=== PATIENT | female | born 1980 | race Caucasian/White ===

== ENCOUNTER 2017-11-12 19:27 | Emergency (ER) | payer MEDICAID, SELFPAY ==
[2017-11-12 19:28] VITALS: BP 139/91; PULSE 113; RESP 16; TEMP 35.6; O2SAT 98; BMI 29.8
--- NOTE | 2017-11-12 19:37 | ED.VISSUMM ---
- ER Visit Summary Date of Service: 11/12/17 Chief Complaint: Back pain History of Present Illness: The patient is a 37 F with a history of back pain who presents after injuring her lower back today. She fell after she slipped on some ice. She twisted and hurt her lower back. It is worse with movement. It is better with sitting. Denies any numbness or tingling. No urinary retention or bowel or bladder incontinence. She does have history of sciatic issues. She tried Tylenol at home without any relief Physical Examination: Vital signs reviewed. HEENT exam unremarkable. Heart is regular rate and rhythm without murmurs. Lungs are clear to auscultation. Abdomen is soft and nontender. Exam reveals bilateral lumbar paraspinal tenderness to palpation extremities reveal no edema. Skin exam normal. Neurologic exam normal. Test Results: None indicated Emergency Department Course and Treatment: Patient will be treated one [place] and Flexeril here. She will go home with Flexeril only. She will follow-up with her PCP Treatment Plan: [] Disposition: Discharge Impression: Acute on chronic low back pain This note was generated with [employer] dictation software. It may contain incorrect words, spelling, and punctuation that were not noted in review of the chart prior to signing ED Disposition - Plan for ED Patient: Chief Complaint: Fall Referrals: Yancy De La Garza MD [Primary Care Provider] -
--- NOTE | 2017-11-12 19:38 | ED.DEP ---
ED Disposition - Plan for ED Patient: Disposition: Home or Assisted Living Chief Complaint: Fall Instructions: ED Mechanical Fall Prescriptions: Cyclobenzaprine [Flexeril] 10 mg PO TID PRN #20 tab PRN Reason: Muscle Spasm Referrals: Yancy De La Garza MD [Primary Care Provider] -
[2017-11-12] MEDS: HYDROcodone Bitartrate/Apap 5/325 Tablet PO (19:55)
== END 2017-11-12 19:56 | disposition home or self-care (01) ==
LOC: ED 19:46
PROVIDERS: Emergency Provider Emergency Medicine
DX: G89.29 Other chronic pain (principal); M54.5 Low back pain; J45.909 Unspecified asthma, uncomplicated; Z72.0 Tobacco use
CPT/HCPCS: 99283

== ENCOUNTER 2018-03-19 12:22 | Emergency (ER) | payer MEDICAID, SELFPAY ==
[2018-03-19 12:24] VITALS: BP 150/79; PULSE 114; RESP 18; TEMP 37; O2SAT 97; BMI 29.5
[2018-03-19] MEDS: HYDROcodone Bitartrate/Apap 5/325 Tablet PO (12:44)
[2018-03-19] MEDS: Ibuprofen 400 MG Tablet 800 MG PO (12:44)
--- NOTE | 2018-03-19 14:01 | ED.DCSUM_ITS ---
- ER Visit Summary Date of Service: 03/19/18 Chief Complaint: Central low back pain History of Present Illness: The patient is a 38 F who presents with chief complaint it is my sciatica. She denies any radicular pain. She denies bowel bladder dysfunction. She denies quadricep weakness going up and down steps. She reports foot drop. She took 2 ibuprofen without relief. There is a somewhat to her prior back pain. Review of systems otherwise negative. Past history of seizures, asthma and genital herpes. Physical Examination: Vital signs are unremarkable. Patient moves quite freely with no hesitation or evidence of pain. Abdomen is soft nontender. No palpable semester down bruit. She has minimal discomfort to palpation. Straight leg test is negative bilaterally. DTRs are 2+ at the patella and ankle with no clonus or Babinski sign. DP and PT pulses are palpable. Gait was observed there is no foot drop. Is able to walk on her heels and toes. Test Results: None Emergency Department Course and Treatment: Patient was medicated with ibuprofen and one Vivian tablet. She was reassessed at 1350 and states she is markedly better. She is sitting upright smiling. Treatment Plan: Prescription for ibuprofen Disposition: Discharged to home with appropriate home-going instructions Impression: Acute central low back pain without sciatica This note was generated with [employer] dictation software. It may contain incorrect words, spelling, and punctuation that were not noted in review of the chart prior to signing ED Disposition - Plan for ED Patient: Disposition: Home or Assisted Living Chief Complaint: Lower Extremity Injury Instructions: ED Neck Back Pain General Prescriptions: Ibuprofen 800 mg PO Q8 #14 tab Referrals: Care Physician,No Primary [Primary Care Provider] -
== END 2018-03-19 14:16 | disposition home or self-care (01) ==
PROVIDERS: Emergency Provider Emergency Medicine
DX: M54.5 Low back pain (principal); J45.909 Unspecified asthma, uncomplicated; Z72.0 Tobacco use
CPT/HCPCS: 99283

== ENCOUNTER 2018-05-18 16:39 | Emergency (ER) | payer MEDICAID, SELFPAY ==
[2018-05-18 16:40] VITALS: BP 120/68; PULSE 106; RESP 15; TEMP 36.6; O2SAT 97; BMI 45.6
--- NOTE | 2018-05-18 17:27 | ED.DCSUM_ITS ---
- ER Visit Summary Date of Service: 05/18/18 Chief Complaint: Acute right lower back pain History of Present Illness: The patient is a 38 F who has history of back problems presents with acute right lower back pain after lifting. She denies bowel bladder dysfunction. She denies saddle paresthesia anesthesia. She denies any radicular pain. Denies foot drop. She denies quadricep weakness. She denies saddle paresthesia or anesthesia. There is no history of fever, chills or night sweats. She denies IV drug use. She reports multiple allergies to NSAIDs. She initially states nausea. When she was informed this is not an allergy she informed me that she has hives. When asked if she would prefer to sit for 30 minutes versus standing for 30 minutes she chose the former. Please read written note for complete detail Physical Examination: Vital signs are Test Results: [] Emergency Department Course and Treatment: [] Remarkable heart rate 106. HEENT exam is unremarkable. Insert cardiopulmonary exam abdomen is soft nontender with no palpable mass abdominal bruit. Patient has pain out of proportion to tactile stimulus. Straight leg test is negative right and left. Patella and ankle reflex are 2+ and symmetric. EHL is intact. There is no clonus or Babinski sign. PT and DP pulses are palpable and symmetric. Treatment Plan: Since patient reports allergy to NSAIDs patient was informed she would have to take Tylenol and ice Disposition: Discharged home with appropriate home-going instructions Impression: Acute bilateral low back pain without sciatica secondary to lifting This note was generated with [employer] dictation software. It may contain incorrect words, spelling, and punctuation that were not noted in review of the chart prior to signing ED Disposition - Plan for ED Patient: Disposition: Home or Assisted Living Chief Complaint: Back Instructions: ED Sprain Strain Lumbar Referrals: Care Physician,No Primary [Primary Care Provider] - Additional Instructions: Apply ice 20-30 minutes at a time 6-8 times a day and because of your allergies take Tylenol for pain.
[2018-05-18] MEDS: Acetaminophen 325 MG Tablet 650 MG PO (17:55)
== END 2018-05-18 17:56 | disposition home or self-care (01) ==
PROVIDERS: Emergency Provider Emergency Medicine
DX: M54.5 Low back pain (principal); X50.9XXA Other and unspecified overexertion or strenuous movements or postures, initial encounter; Y93.9 Activity, unspecified; Y92.9 Unspecified place or not applicable; E66.9 Obesity, unspecified; Z72.0 Tobacco use
CPT/HCPCS: 99283

== ENCOUNTER 2019-06-24 18:05 | Emergency (ER) | payer MEDICAID, SELFPAY ==
[2019-06-24 18:06] VITALS: BP 138/81; PULSE 115; RESP 14; TEMP 36.8; O2SAT 98; BMI 30.5
--- NOTE | 2019-06-24 20:43 | ED.RN ---
AROUND 1900 PT LWBS
== END 2019-06-24 19:00 ==
LOC: ED 20:38
PROVIDERS: Emergency Provider Emergency Medicine
DX: R21 Rash and other nonspecific skin eruption (principal)

== ENCOUNTER 2019-07-29 16:39 | Emergency (ER) | payer MEDICAID, SELFPAY ==
[2019-07-29 16:39] VITALS: BP 152/83; PULSE 103; RESP 18; TEMP 36.3
[2019-07-29 16:40] VITALS: BP 152/83; PULSE 103; RESP 18; TEMP 36.3
--- NOTE | 2019-07-29 17:23 | ED.DCSUM_ITS ---
History of Present Illness Chief Complaint: Vag Bld, Preg Informant: Patient Issue: Vaginal bleeding. Negative for: Passing clots, Passing tissue Onset: Today Context: Gradual Onset Current Severity: Spotting Test: Positive Sexually: Active P: 1 Ab: 1 Narrative: Patient is a 39-year-old female currently 7 weeks 0 days presenting with spotting. Patient states this is her third . She had a spontaneous miscarriage at 6 weeks earlier this year. Patient states she had a transvaginal ultrasound a little less than a week ago outpatient to confirm intrauterine . She states the heart rate at that time was 139. Just prior to arrival she went to the bathroom and had a small amount of spotting with wiping. She denies any associated pelvic pain or cramping. She denies any dysuria or hematuria. She denies any abnormal vaginal discharge. She is planning on following up with [facility]. She denies any other complaints or concerns at this time. Past Medical History - Allergies and Home Meds Allergies/Adverse Reactions: Allergies erythromycin base [Erythromycin Base] Allergy (Verified 06/24/19 18:06) Hives ketorolac tromethamine [From Toradol] Allergy (Verified 06/24/19 18:06) Rash naproxen [From Naprosyn] Allergy (Verified 06/24/19 18:06) Rash Past Medical History: - - Disorder?on Keppra Surgical History: - - D&C Smoking Status: Current every day smoker Review of Systems General: Denies: Chills, Fever, Sweats Eyes: Denies: Visual changes - bilaterally, Diplopia ENT: Denies: Rhinorrhea, Sore throat Cardiovascular: Denies: Chest pain, Palpitations Respiratory: Denies: Dyspnea, Cough, Dyspnea on exertion Gastrointestinal: Denies: Abdominal pain, Nausea, Vomiting, Diarrhea Genitourinary: Reports: - - Vaginal bleeding. Denies: Dysuria, Hematuria, Frequency Musculoskeletal: Denies: Back pain, Extremity Pain Skin: Denies: Rash, Wounds Neurological: Denies: Headache, Weakness, Numbness Physical Exam Vital Signs/Narrative: Vital Signs Temp Pulse Resp BP 07/29/19 16:40 97.3 F L 103 H 18 152/83 H 07/29/19 16:39 97.3 F L 103 H 18 152/83 H Inital Vital Signs reviewed: Yes General: Well nourished, Well developed Head: Normocephalic, Atraumatic Eyes: Perrl, EOMI ENT: Moist mucous membranes, No rhinorrhea Neck: Supple, Nontender Cardiovascular: Regular rate Respiratory: No distress, Chest nontender Abdomen: Soft, Nontender, Nondistended, Normal bowel sounds. Negative for: Guarding Back: Nontender, Normal Inspection. Negative for: CVA tenderness Extremities: Nontender, No edema Skin: Normal color, No rash Neurological: Alert, Oriented x3, Cranial nerves II-XII grossly intact, Normal Strength, Normal Sensation Psychological: Normal affect Diagnostic/Tx/Re-eval Laboratory Data 07/29/19 07/29/19 07/29/19 17:40 18:33 18:33 WBC 12.0 H RBC 4.68 Hgb 14.7 Hct 43.2 MCV 92.3 MCH 31.4 MCHC 34.0 RDW Std Deviation 39.9 RDW Coeff of Ramona 11.9 Plt Count 314 MPV 8.7 Immature Gran % (Auto) 0.500 Neut % (Auto) 64.2 Lymph % (Auto) 28.5 Coos % (Auto) 5.7 Eos % (Auto) 0.8 Baso % (Auto) 0.3 Absolute Neuts (auto) 7.7 Absolute Lymphs (auto) 3.41 Nucleated RBC % 0 HCG, Quant Serum , Qual POSITIVE H Urine Color Yellow Urine Clarity Clear Urine pH 6.5 Ur Specific [place] 1.015 Urine Protein 30 H Urine Glucose (UA) Normal Urine Ketones 5 H Urine Occult Blood 250 H Urine Nitrite Negative Urine Bilirubin Negative Urine Urobilinogen 1 H Ur Leukocyte Esterase 25 H Urine RBC 0-5 SEEN Urine WBC 0-5 SEEN Ur Squamous Epith Cells 0-5 SEEN Urine Bacteria 0 SEEN Urine Mucus 1+ Blood Type 07/29/19 07/29/19 18:33 18:33 WBC RBC Hgb Hct MCV MCH MCHC RDW Std Deviation RDW Coeff of Ramona Plt Count MPV Immature Gran % (Auto) Neut % (Auto) Lymph % (Auto) Coos % (Auto) Eos % (Auto) Baso % (Auto) Absolute Neuts (auto) Absolute Lymphs (auto) Nucleated RBC % HCG, Quant 1923 H Serum , Qual Urine Color Urine Clarity Urine pH Ur Specific [place] Urine Protein Urine Glucose (UA) Urine Ketones Urine Occult Blood Urine Nitrite Urine Bilirubin Urine Urobilinogen Ur Leukocyte Esterase Urine RBC Urine WBC Ur Squamous Epith Cells Urine Bacteria Urine Mucus Blood Type O NEGATIVE - Medical Decision/Diagnostic Studies Patient is evaluated for painless vaginal bleeding in first trimester . She is approximately 7 weeks gestation. Bedside ultrasound performed by myself which does not show a definite intra-uterine . Patient states she had a transvaginal ultrasound last week that did confirm intrauterine gestation. I do not think a formal ultrasound is indicated at this time. Patient's hemoglobin is stable. She is Rh- and is given RhoGam in the ER. She does not have any pain or tenderness on physical exam. She is otherwise well-appearing. Patient states she came insulin because she is worried she might be having another miscarriage. Patient is counseled that this is a threatened and she agrees to follow-up with her CERTIFIED LACTATION EDUCATOR. hCG quant is obtained to facilitate follow-up/delta hCG. Patient is counseled on signs and symptoms requiring return to the emergency room. Patient verbalizes agreement and understand this plan. Patient discharged home in stable and improved condition. ED Disposition - Plan for ED Patient: Disposition: Home or Assisted Living Diagnosis: Threatened in early Instructions: POSSIBLE MISCARRIAGE (Threatened ) Additional Instructions: Please follow-up with your CERTIFIED LACTATION EDUCATOR. Call tomorrow. Tell them you need a repeat check of your beta hCG in 2 days. Tell them you were seen for vaginal bleeding in and concern for possible miscarriage. Return to emergency room as needed. You received a shot of RhoGam today because you have a negative blood type.
[2019-07-29 17:48] LABS: Bacteria 0 SEEN /hpf (None Seen)
[2019-07-29 17:57] LABS: Color, Urine Yellow (Yellow); Glucose, Dipstick Normal (Normal); Ketone-Dipstick 5 mg/dl (Negative); Leukocyte Esterase-Dipstick 25 /ul (Negative); Nitrite-Dipstick Negative (Negative); Occult Blood-Urine 250 /ul (Negative); Protein-Dipstick 30 mg/dl (Negative); Specific Gravity, Urine 1.015 (1.002-1.030); Urine Bilirubin Dipstick Negative (Negative); Urine Clarity Clear (Clear); Urine Urobilinogen 1 mg/dl (Normal); Urine pH 6.5 (5.0 - 8.0)
[2019-07-29 18:01] LABS: Mucous, Urine 1+ /hpf (<or=2+); Red Blood Cells-Urine 0-5 SEEN /hpf (0-5); Squamous Epithelial Cells - UA 0-5 SEEN /hpf (5-10)
[2019-07-29 18:02] LABS: White Blood Cells 0-5 SEEN /hpf (0-5)
[2019-07-29 18:46] LABS: Absolute Lymphocyte Count 3.41 X10^3/uL (0.83-4.51); Absolute Neutrophil Count 7.7 X10^3/uL (2.0-7.7); Basophil# 0.03 X10^3/uL; Basophil% 0.3 % (0-1); Eosinophils% 0.8 % (0-5); Hematocrit 43.2 % (37-47); Hemoglobin 14.7 g/dL (12.0-15.0); Lymphocyte # 3.41 X10^3/ul (4.0); Lymphocyte % 28.5 % (19-41); Mean Corpuscular Hgb 31.4 pg (27.0-32.0); Mean Corpuscular Volume 92.3 fL (81-99); Mean Platelet Vol. 8.7 fl (6.2-12.0); Monocyte# 0.68 X10^3/uL; Monocyte% 5.7 % (0-10); NRBC Flagged by Analyzer 0 % (0-5); Neutrophil # 7.67 X10^3/uL (2.7-7.7); Neutrophil % 64.2 % (47-70); Platelet Count 314 K/mm3 (150-450); RBC Distribution Width CV 11.9 % (11.6-14.6); RBC Distribution Width SD 39.9 fl (35.1-43.9); Red Blood Count 4.68 M/mm3 (4.2-5.4)
[2019-07-29 18:57] LABS: Internal QC Validated? YES +Cl - CLEAR BKGD
[2019-07-29 18:59] LABS: Pregnancy, Serum, hCG Quali. POSITIVE Negative
[2019-07-29 19:12] VITALS: RESP 14
[2019-07-29 20:30] VITALS: BP 123/69; PULSE 85; RESP 14; O2SAT 95
[2019-07-29 20:50] LABS: hCG Titer Quant., Serum 1923 mIU/mL (1-3)
== END 2019-07-29 20:31 | disposition home or self-care (01) ==
PROVIDERS: Emergency Provider Emergency Medicine
DX: O20.0 Threatened abortion (principal); O99.331 Smoking (tobacco) complicating pregnancy, first trimester; F17.200 Nicotine dependence, unspecified, uncomplicated; Z3A.01 Less than 8 weeks gestation of pregnancy; Z88.1 Allergy status to other antibiotic agents; Z88.6 Allergy status to analgesic agent
CPT/HCPCS: 36415; 81001; 84702; 84703; 85025; 86900; 86901; 90384; 99282; A4216; J2790

== ENCOUNTER 2021-03-28 13:29 | Emergency (ER) | payer MEDICAID, SELFPAY ==
[2021-03-28 13:30] VITALS: BP 153/89; PULSE 103; RESP 14; TEMP 36.5; O2SAT 97; BMI 31.9
--- NOTE | 2021-03-28 13:39 | ED.VIS.BACK ---
HPI History of Present Illness Chief Complaint: Back Informant: patient Onset/Context/Timing Onset: Yesterday Context: Sudden Onset Injury: bending Timing: Continuous Quality: Aching Location: Lumbar (Without radiation) Current Severity: Severe Maximum Severity: Severe Worsened by: improves with Movement, Ambulation and Bending Relieved by: Remaining Still Associated Symptoms Associated Symptoms: Negative for Numbness, Tingling, Radiation to Right Leg, Radiation to Left Leg, Fever, Abdominal Pain, Dysuria, Unable to Ambulate, Unable to Transfer, Urinary Retention, Urinary Incontinence, Constipation and Fecal Incontinence Narrative Narrative: Patient has a history of low back pain and sciatica states she had sudden onset pain yesterday with 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 Pain was not severe immediately but is gradually become worse. She feels like her back tightened/locked up at the time of the onset. She denies any IV drug use. She denies being right now. She denies radiation down her leg like prior sciatica episodes. She denies any bowel or bladder dysfunction. [facility] Medical History Genital herpes History of asthma History of sciatica Mental retardation Seizure disorder Home Medications albuterol sulfate [Ventolin Hfa (SP)] 2 puff INHALATION Q4H PRN PRN 09/02/15 [History Last Taken Unknown] Pravastatin Sodium 20 mg PO DAILY 09/09/16 [History Last Taken Unknown] cetirizine [Zyrtec] 10 mg PO DAILY 09/09/16 [History Last Taken Unknown] folic acid 1 mg PO DAILY 09/09/16 [History Last Taken Unknown] levetiracetam 1,000 mg PO BID 09/09/16 [History Last Taken Unknown] ranitidine HCl [Acid Control] 150 mg PO BID 09/09/16 [History Last Taken Unknown] sertraline 50 mg PO DAILY 09/09/16 [History Last Taken Unknown] Allergy/AdvReac Type Severity Reaction Status Date / Time erythromycin base Allergy Hives Verified 03/28/21 13:30 [Erythromycin Base] ketorolac tromethamine Allergy Rash Verified 03/28/21 13:30 [From Toradol] naproxen [From Naprosyn] Allergy Rash Verified 03/28/21 13:30 Social History Smoking Status: Current every day smoker ROS ROS ED Constitutional Constitutional ED: Denies chills or fever(s) Gastrointestinal Gastrointestinal: Denies abdominal pain, constipation, fecal incontinence, nausea or vomiting Genitourinary Genitourinary ED: Reports other Details: no urinary retention ; Denies abdominal discomfort or urinary incontinence Musculoskeletal Musculoskeletal: Reports as per HPI and back pain; Denies neck pain Integumentary Denies rash or wounds Neurologic Neurologic: Denies headache(s), paresthesias or weakness EXAM Physical Exam Const Vital Signs: 03/28/21 13:30 Temperature 97.7 F L Temperature Source Temporal Pulse Rate 103 H Respiratory Rate 14 Blood Pressure 153/89 H Blood Pressure Mean 110 Pulse Ox 97 Oxygen Delivery Method Room Air Positive well nourished and well developed General Appearance ED: well developed and NAD HEENT Negative for trauma or tenderness Eyes PERRL and EOMs intact bilaterally Neck full ROM and supple GI normal to inspection, nondistended, normoactive bowel sounds, soft to palpation and non-tender Back/Spine normal to inspection Lumbar Spine / Lower Back: ROM limited, paraspinal muscle tenderness bilateral L4 and L5 and straight leg raise negative bilaterally Extremity normal to inspection, full ROM and no pedal edema Neuro oriented x3 and no sensory deficits noted Sensorium / Orientation: alert Motor Exam: strength 5/5 throughout and clonus absent Deep Tendon Reflexes: Rt Patellar (L4): 2+, Lt Patellar (L4): 2+, Rt Ankle (S1): 2+ and Lt Ankle (S1): 2+ Deep Tendon Reflexes Back: Rt Patellar (L4): 2+, Lt Patellar (L4): 2+, Rt Ankle (S1): 2+ and Lt Ankle (S1): 2+ Plantar Reflex: Downgoing: bilateral Psych mental status grossly normal and thought process normal Skin no rashes or lesions noted and no wounds MDM MDM MDM Narrative Medical decision making narrative: Patient declares a rash reaction to Toradol and Naprosyn. I will give her injections of morphine and Norflex here, but I do not think she needs to be prescribed narcotics for this. Supportive care advised. Discharge Plan Triage Chief Complaint: Back ED Provider: Nikolai Allen Dx/Rx/DC Orders Clinical Impression: Acute lumbosacral myofascial strain Instructions: Back Safety: Bending, ED Back Sprain/Strain Prescriptions: No Action albuterol sulfate [Ventolin HFA] 1 INHALER inhaler 2 puff inhalation Q4H PRN PRN (Reason: Sob &/Or Wheezing) RF: 0 ranitidine HCl [Acid Control (ranitidine)] 150 MG tablet 150 mg PO BID RF: 0 folic acid 1 MG tablet 1 mg PO DAILY RF: 0 sertraline 50 MG tablet 50 mg PO DAILY RF: 0 levetiracetam 1,000 MG tablet 1,000 mg PO BID RF: 0 cetirizine [Zyrtec] 10 MG capsule 10 mg PO DAILY RF: 0 Pravastatin Sodium 20 MG tablet 20 mg PO DAILY RF: 0 Primary Care Provider: Care Physician,No Primary Referrals: Kina Turner [NON-STAFF] - 1 Week if not improving Care Physician,No Primary [Primary Care Provider] - Disposition Disposition: Home, Self Care
[2021-03-28] MEDS: Morphine 4 MG/ML Syringe IM (13:48)
[2021-03-28] MEDS: Orphenadrine 60 MG/2 ML Ampul IM (13:48)
== END 2021-03-28 14:32 | disposition home or self-care (01) ==
LOC: ED 14:08
PROVIDERS: Emergency Provider Emergency Medicine; PCP Family Medicine
DX: S39.012A Strain of muscle, fascia and tendon of lower back, initial encounter (principal); J45.909 Unspecified asthma, uncomplicated; F17.200 Nicotine dependence, unspecified, uncomplicated; Z79.51 Long term (current) use of inhaled steroids; X50.1XXA Overexertion from prolonged static or awkward postures, initial encounter; Y93.89 Activity, other specified; Y92.89 Other specified places as the place of occurrence of the external cause; Y99.8 Other external cause status
CPT/HCPCS: 96372; 99282

== ENCOUNTER 2021-11-02 15:37 | Emergency (ER) | payer MEDICAID, SELFPAY ==
[2021-11-02 15:38] VITALS: BP 137/88; PULSE 104; RESP 16; TEMP 36.3; O2SAT 95; BMI 16.0
--- NOTE | 2021-11-02 16:10 | EDS_ITS ---
HPI History of Present Illness Chief Complaint: Back Informant: patient Onset/Context/Timing Onset: Today Context: Gradual Onset Timing: Intermittent Quality: Sharp Location: Lumbar Current Severity: Mild Worsened by: improves with Movement, Bending and Lifting Relieved by: Remaining Still Associated Symptoms Associated Symptoms: Radiation to Right Leg and Radiation to Left Leg; Negative for Numbness, Tingling, Fever, Abdominal Pain, Dysuria, Unable to Ambulate, Unable to Transfer, Urinary Retention, Urinary Incontinence, Constipation and Fecal Incontinence Narrative Narrative: 41-year-old female history of acute on chronic back pain and history of sciatica. States in the last 1 to 2 years she has had intermittent back pain comes and goes. She says she is able to flare at this time. States it goes to her buttocks on both sides. She denies any fall injury or trauma. No fever. She is on no blood thinners. Denies any weakness or numbness in her legs. No bowel or bladder incontinence. This is similar to her prior episodes. Prior similar symptoms: Yes Recent Illness/Hospitalization: No PFSH PFSH Medical History Genital herpes History of asthma History of sciatica Mental retardation Seizure disorder Home Medications albuterol sulfate [Ventolin Hfa (SP)] 2 puff INHALATION Q4H PRN PRN 09/02/15 [History Last Taken Unknown] Pravastatin Sodium 20 mg PO DAILY 09/09/16 [History Last Taken Unknown] cetirizine [Zyrtec] 10 mg PO DAILY 09/09/16 [History Last Taken Unknown] folic acid 1 mg PO DAILY 09/09/16 [History Last Taken Unknown] levetiracetam 1,000 mg PO BID 09/09/16 [History Last Taken Unknown] ranitidine HCl [Acid Control] 150 mg PO BID 09/09/16 [History Last Taken Unknown] sertraline 50 mg PO DAILY 09/09/16 [History Last Taken Unknown] Allergy/AdvReac Type Severity Reaction Status Date / Time erythromycin base Allergy Hives Verified 11/02/21 15:40 [Erythromycin Base] ketorolac tromethamine Allergy Rash Verified 11/02/21 15:40 [From Toradol] naproxen [From Naprosyn] Allergy Rash Verified 11/02/21 15:40 Social History Smoking Status: Current every day smoker tobacco type: cigarettes ROS ROS ED ROS Narrative Denies recent illness. Review of Systems ROS Unobtainable: Denies due to encephalopathy Constitutional Constitutional ED: Denies fever(s) Eyes Eyes: Denies change in vision ENT ENT ED: Denies ear pain Cardiovascular Cardiovascular: Denies chest pain Respiratory/Chest Respiratory/Chest: Denies dyspnea Gastrointestinal Gastrointestinal: Denies abdominal pain, diarrhea, nausea or vomiting Genitourinary Genitourinary ED: Denies dysuria Musculoskeletal Musculoskeletal: Denies myalgias Integumentary Denies rash Neurologic Neurologic: Denies headache(s) Psychiatric Psychiatric: Denies depression Endocrine Endocrinology: Denies polyuria Hematologic/Lymphatic Hematologic/Lymphatic: Denies easy bruising Allergic/Immunologic Allergic/Immunologic ED: Denies urticaria EXAM Physical Exam Narrative Exam Narrative: [age] female no acute distress vital signs stable afebrile. HEENT neck heart lung abdominal exams are normal. Back tenderness along the iliac crest bilaterally. Also mild of the lumbar spine. No signs of trauma. No redness or warmth. Both upper and lower extremities are neurovascular intact with full range of motion. 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 Dorsi plantarflexion intact. No cauda equina. No saddle anesthesia. Normal medial thigh sensation. Dorsi plantarflexion intact. She is a negative straight leg raise bilaterally. She states the pain feels like it is pulling in her back but does not specifically go down her legs. Const Vital Signs: 11/02/21 15:38 Temperature 97.4 F L Temperature Source Temporal Pulse Rate 104 H Respiratory Rate 16 Blood Pressure 137/88 H Blood Pressure Mean 104 Pulse Ox 95 Oxygen Delivery Method Room Air Positive well nourished and well developed; Negative for obese, cachectic or contractures General Appearance ED: well developed and NAD; Negative for cachectic, contractures or pallor Nutritional Appearance: Negative for cachectic or obese HEENT Reports moist mucous membranes Negative for trauma or tenderness Eyes PERRL and EOMs intact bilaterally General Eye ED: Negative for pale conjunctiva Neck no lymphadenopathy, supple and no JVD General: Negative for tenderness Resp normal respiratory effort and clear to auscultation bilaterally Effort and Inspection: Negative for pain with movement or other Auscultation: Negative for rales or rhonchi Cardio regular rate, regular rhythm, S1 normal heart sound, S2 normal heart sound and no murmurs GI normal to inspection, nondistended, normoactive bowel sounds, soft to palpation, non-tender, non-distended and no masses Inspection: Negative for abdominal distention Palpation: Negative for tender, guarding or rebound tenderness present Back/Spine normal to inspection; Negative for no thoracic nor lumbar tenderness Back/Spine Narrative: Patient with tenderness along her iliac crest bilaterally. Also her lumbar spine. No signs of trauma. Negative straight leg raise bilaterally. General Back: Negative for CVA tenderness Cervical Spine: Negative for paracervical muscle tenderness Thoracic Spine / Upper Back: paraspinal muscle tenderness Lumbar Spine / Lower Back: straight leg raise negative bilaterally; Negative for ROM limited, straight leg raise positive right or straight leg raise positive - left Extremity normal to inspection General Extremety ED: Negative for edema or tenderness General Extremity: Negative for edema Neuro oriented x3 and no sensory deficits noted Sensorium / Orientation: alert; Negative for confused, lethargic or stuporous Motor Exam: strength 5/5 throughout Psych mental status grossly normal Attitude: No agitated Mood & Affect: Negative for depressed or tearful Skin no rashes or lesions noted and no wounds General Skin Exam: Negative for jaundice or pallor Lesions: No lesion noted Rashes: No rashes noted Trauma: Negative for abrasion or puncture MDM MDM MDM Narrative Medical decision making narrative: 41-year-old female with acute on chronic low back pain. This episode I do not think is acute sciatica. She has no signs of this being a disc. No cauda equina. She will be given 1 [place]. And use Motrin at home. Follow-up with her primary care physician. Discharge Plan Triage Chief Complaint: Back ED Provider: Jad Fernandez Dx/Rx/DC Orders Clinical Impression: Back pain, Acute lumbosacral myofascial strain Instructions: ED Back Pain (Acute or Chronic) Prescriptions: No Action albuterol sulfate [Ventolin HFA] 1 INHALER inhaler 2 puff inhalation Q4H PRN PRN (Reason: Sob &/Or Wheezing) RF: 0 ranitidine HCl [Acid Control (ranitidine)] 150 MG tablet 150 mg PO BID RF: 0 folic acid 1 MG tablet 1 mg PO DAILY RF: 0 sertraline 50 MG tablet 50 mg PO DAILY RF: 0 levetiracetam 1,000 MG tablet 1,000 mg PO BID RF: 0 cetirizine [Zyrtec] 10 MG capsule 10 mg PO DAILY RF: 0 Pravastatin Sodium 20 MG tablet 20 mg PO DAILY RF: 0 Primary Care Provider: Adrian Ley Referrals: Adrian Ley MD [Primary Care Provider] - 3-5 Days if not improving Activity Restrictions/Additional Instructions: Shower warm bath relax the muscles. Motrin 4 to 600 mg 3 times a day to decrease the pain and inflammation. Follow-up with your doctor if not improving. Return emergency department if a lot worse. Disposition Disposition: Home, Self Care
[2021-11-02] MEDS: HYDROcodone Bitartrate/Apap 5/325 Tablet PO (16:23)
== END 2021-11-02 16:25 | disposition home or self-care (01) ==
LOC: ED 16:22
PROVIDERS: Emergency Provider Emergency Medicine; PCP Family Medicine; Visit Provider Emergency Medicine
DX: S39.012A Strain of muscle, fascia and tendon of lower back, initial encounter (principal); M54.50 Low back pain, unspecified; F17.210 Nicotine dependence, cigarettes, uncomplicated; X58.XXXA Exposure to other specified factors, initial encounter
CPT/HCPCS: 99283

== ENCOUNTER 2021-12-18 18:01 | Emergency (ER) | payer MEDICAID, SELFPAY ==
[2021-12-18 18:02] VITALS: BP 121/82; PULSE 98; RESP 16; TEMP 36.3; O2SAT 97; BMI 30.9
--- NOTE | 2021-12-18 20:12 | EX.ED.DYSGE1 ---
HPI History of Present Illness Chief Complaint: Abscess Informant: patient Onset/Context/Timing Onset: Days (3) Context: Gradual Onset Timing: Continuous Quality: Redness, swelling Location: Left breast Worsened by: Palpation Relieved by: Nothing Narrative Narrative: Patient presents with redness and swelling to her left breast that has been getting worse over the last 3 days. Patient describes her pain is burning and aching. Patient states it is constant. Patient states it is worse with any palpation to the area. Patient denies any fevers or chills. Patient denies any discharge or drainage. Patient denies any nausea or vomiting. Patient denies any chest pain or shortness of breath. [facility] Medical History (Updated 12/18/21 @ 20:[address] Denton Mauricio DO) Genital herpes History of asthma History of sciatica Mental retardation Seizure disorder Home Medications albuterol sulfate [Ventolin Hfa (SP)] 2 puff INHALATION Q4H PRN PRN 09/02/15 [History Last Taken Unknown] Pravastatin Sodium 20 mg PO DAILY 09/09/16 [History Last Taken Unknown] cetirizine [Zyrtec] 10 mg PO DAILY 09/09/16 [History Last Taken Unknown] folic acid 1 mg PO DAILY 09/09/16 [History Last Taken Unknown] levetiracetam 1,000 mg PO BID 09/09/16 [History Last Taken Unknown] ranitidine HCl [Acid Control] 150 mg PO BID 09/09/16 [History Last Taken Unknown] sertraline 50 mg PO DAILY 09/09/16 [History Last Taken Unknown] cephalexin 500 mg PO Q6 #40 capsule 12/18/21 [Rx Last Taken Unknown] Allergy/AdvReac Type Severity Reaction Status Date / Time erythromycin base Allergy Hives Verified 12/18/21 18:02 [Erythromycin Base] ketorolac tromethamine Allergy Rash Verified 12/18/21 18:02 [From Toradol] naproxen [From Naprosyn] Allergy Rash Verified 12/18/21 18:02 Surgical History (Updated 12/18/21 @ 20:[address] Denton Mauricio DO) Hx of toe surgery Social History Smoking Status: Light Smoker (<10/day) ROS ROS ED Constitutional Constitutional ED: Denies chills or fever(s) Eyes Eyes: Denies blurry vision or change in vision ENT ENT ED: Denies rhinorrhea or sore throat Cardiovascular Cardiovascular: Denies chest pain or palpitations Respiratory/Chest Respiratory/Chest: Denies cough or dyspnea Gastrointestinal Gastrointestinal: Denies nausea or vomiting Genitourinary Genitourinary ED: Denies dysuria or hematuria Musculoskeletal Musculoskeletal: Denies back pain or neck pain Integumentary Denies abscess or rash Neurologic Neurologic: Denies headache(s) or weakness Allergic/Immunologic Allergic/Immunologic ED: Denies mouth swelling or urticaria EXAM Physical Exam Const Vital Signs: 12/18/21 18:02 Temperature 97.4 F L Temperature Source Temporal Pulse Rate 98 Respiratory Rate 16 Blood Pressure 121/82 H Blood Pressure Mean 95 Pulse Ox 97 Oxygen Delivery Method Room Air Positive well nourished and well developed General Appearance ED: well developed and NAD HEENT Reports moist mucous membranes Neck supple Chest Wall Chest Narrative: There is tenderness, erythema, and warmth over the left breast. There is some mild induration. There is no discharge or drainage. There is no fluctuance or evidence of any abscess. Neuro oriented x3, CN's II-XII intact bilaterally and no sensory deficits noted Sensorium / Orientation: alert Motor Exam: strength 5/5 throughout Psych mental status grossly normal MDM MDM MDM Narrative Medical decision making narrative: Patient was advised that this is consistent with mastitis. I do not feel any abscess formation. Patient was given a dose of [place] here. Patient was also given a dose of Keflex here. Patient was given a prescription for Keflex. Patient was instructed to use warm compresses to the area. Patient was instructed to follow-up with her primary care physician in 3 to 5 days for reevaluation. Patient understood and was agreeable with the plan. All questions were answered. Discharge Plan Triage Chief Complaint: Abscess ED Provider: Denton Mauricio Dx/Rx/DC Orders Clinical Impression: Acute mastitis of left breast, Cellulitis of left breast Instructions: ED Mastitis Prescriptions: New cephalexin [cephalexin] 500 MG capsule 500 mg PO Q6 Qty: 40 RF: 0 No Action albuterol sulfate [Ventolin HFA] 1 INHALER inhaler 2 puff inhalation Q4H PRN PRN (Reason: Sob &/Or Wheezing) RF: 0 ranitidine HCl [Acid Control (ranitidine)] 150 MG tablet 150 mg PO BID RF: 0 folic acid 1 MG tablet 1 mg PO DAILY RF: 0 sertraline 50 MG tablet 50 mg PO DAILY RF: 0 levetiracetam 1,000 MG tablet 1,000 mg PO BID RF: 0 cetirizine [Zyrtec] 10 MG capsule 10 mg PO DAILY RF: 0 Pravastatin Sodium 20 MG tablet 20 mg PO DAILY RF: 0 Primary Care Provider: Adrian Ley Referrals: Adrian Ley MD [Primary Care Provider] - 3-5 Days Disposition Disposition: Home, Self Care
[2021-12-18] MEDS: Cephalexin 500 MG Capsule PO (20:21)
[2021-12-18] MEDS: HYDROcodone Bitartrate/Apap 5/325 Tablet PO (20:21)
== END 2021-12-18 20:30 | disposition home or self-care (01) ==
PROVIDERS: Emergency Provider Emergency Medicine; PCP Family Medicine; Visit Provider Emergency Medicine
DX: N61.0 Mastitis without abscess (principal); F17.200 Nicotine dependence, unspecified, uncomplicated; F79 Unspecified intellectual disabilities; J45.909 Unspecified asthma, uncomplicated; Z79.899 Other long term (current) drug therapy
CPT/HCPCS: 99283

== ENCOUNTER 2022-03-07 15:33 | Emergency (ER) | payer MEDICAID, SELFPAY ==
[2022-03-07 15:34] VITALS: BP 138/85; PULSE 84; RESP 17; TEMP 36.2; O2SAT 95; BMI 30.6
--- NOTE | 2022-03-07 16:11 | ED.VIS.BACK ---
HPI History of Present Illness Chief Complaint: Back Informant: patient Narrative Narrative: Ends with injuring her back. She has had back pain for 10 or so years. It is off and on. She used to take Vicodin for it. She states she is a smoker and she coughed yesterday. She has had soreness since then. No numbness tingling weakness bowel or bladder dysfunction. Its in the mid lower back on both sides. She tried heating pad and hot shower and it seemed to make it worse. No fevers or chills. No recent infections. Again, no neurologic symptoms whatsoever. She states this is a typical pattern when she does something to cough sneeze or twist and it will exacerbate the back. She does not see anybody for this chronically at this time. [facility] Medical History Genital herpes History of asthma History of sciatica Mental retardation Seizure disorder Home Medications albuterol sulfate 90 mcg/actuation aerosol inhaler (Ventolin HFA) 2 puff inhalation Q4H PRN PRN Sob &/Or Wheezing 09/02/15 [History Last Taken Unknown] Pravastatin Sodium 20 mg PO DAILY 09/09/16 [History Last Taken Unknown] cetirizine 10 mg capsule (Zyrtec) 10 mg PO DAILY 09/09/16 [History Last Taken Unknown] folic acid 1 mg tablet 1 mg PO DAILY 09/09/16 [History Last Taken Unknown] levetiracetam 1,000 mg tablet 1,000 mg PO BID 09/09/16 [History Last Taken Unknown] ranitidine HCl 150 mg tablet (Acid Control (ranitidine)) 150 mg PO BID 09/09/16 [History Last Taken Unknown] sertraline 50 mg tablet 50 mg PO DAILY 09/09/16 [History Last Taken Unknown] cephalexin 500 mg capsule 500 mg PO Q6 #40 CAPSULES 12/18/21 [Rx Last Taken Unknown] cyclobenzaprine 10 mg tablet 10 mg PO BID PRN muscle spasm #21 tabs 03/07/22 [Rx Last Taken Unknown] Allergy/AdvReac Type Severity Reaction Status Date / Time erythromycin base Allergy Hives Verified 03/07/22 15:33 [Erythromycin Base] ketorolac tromethamine Allergy Rash Verified 03/07/22 15:33 [From Toradol] naproxen [From Naprosyn] Allergy Rash Verified 03/07/22 15:33 Surgical History Hx of toe surgery Social History Smoking Status: Light Smoker (<10/day) ROS ROS ED Constitutional Constitutional ED: Denies chills, fever(s) or subjective ENT ENT ED: Denies rhinorrhea Cardiovascular Cardiovascular: Denies chest pain or palpitations Respiratory/Chest Respiratory/Chest: Denies dyspnea or dyspnea on exertion Gastrointestinal Gastrointestinal: Denies abdominal pain, constipation, diarrhea, melena, nausea or vomiting Genitourinary Genitourinary ED: Denies dysuria, hematuria or urinary frequency Musculoskeletal Musculoskeletal: Reports back pain; Denies neck pain Integumentary Denies rash Neurologic Neurologic: Denies paresthesias or weakness Endocrine Endocrinology: Denies polydipsia or polyuria Hematologic/Lymphatic Hematologic/Lymphatic: Denies easy bleeding or easy bruising Allergic/Immunologic Allergic/Immunologic ED: Denies urticaria EXAM Physical Exam Const Vital Signs: 03/07/22 15:34 Temperature 97.1 F L Temperature Source Temporal Pulse Rate 84 Respiratory Rate 17 Blood Pressure 138/85 H Blood Pressure Mean 102 Pulse Ox 95 Oxygen Delivery Method Room Air Positive well nourished and well developed Constitutional Narrative: Patient sitting comfortably on the bed. No notable difficulty moving around or sit leaning forward or getting up for evaluation. General Appearance ED: well developed and NAD HEENT Reports moist mucous membranes Eyes General Eye ED: Negative for scleral icterus Neck no JVD Resp normal respiratory effort and clear to auscultation bilaterally Cardio regular rate and regular rhythm GI normal to inspection, nondistended, normoactive bowel sounds, soft to palpation and non-tender Back/Spine normal to inspection Back/Spine Narrative: She does have some diffuse paraspinal tenderness mostly at L4-L5 in the upper SI joint area. No sciatic notch/buttock tenderness. No skin changes other than tattoos. No erythema or rash General Back: Negative for CVA tenderness Extremity normal to inspection Extremity Narrative: No edema cords or asymmetry. Distal pulses are normal. Neuro oriented x3 and no sensory deficits noted Sensorium / Orientation: alert; Negative for confused, lethargic or stuporous Motor Exam: strength 5/5 throughout Psych mental status grossly normal Skin no rashes or lesions noted MDM MDM MDM Narrative Medical decision making narrative: Patient aggravated the back after episode of smoker's cough. She states she is not coughing a lot its just she does this sometimes. This irritated the back. There was no fall. I do not think this needs x-rays. We discussed this with the patient and she agrees. She got a little bit worse after sleeping and using heat on the area. We discussed that using ice is probably better in the first few days of an injury. I will get her some muscle relaxants. She has limits what she can take for pain due to allergies. It sounds like in the years past she had problem with pain meds. I would prefer not to use narcotics as I do not think they are needed on this case. I think ice rest time Tylenol and muscle relaxant should be appropriate initial therapy. Discharge Plan Triage Chief Complaint: Back ED Provider: Masood Hernández Dx/Rx/DC Orders Clinical Impression: Acute lumbosacral myofascial strain Instructions: ED Back Sprain/Strain Prescriptions: New cyclobenzaprine 10 mg tablet 10 mg PO BID PRN (Reason: muscle spasm) Qty: 21 0RF No Action albuterol sulfate [Ventolin HFA] 1 INHALER inhaler 2 puff inhalation Q4H PRN PRN (Reason: Sob &/Or Wheezing) ranitidine HCl [Acid Control (ranitidine)] 150 MG tablet 150 mg PO BID folic acid 1 MG tablet 1 mg PO DAILY Label Comments: sertraline 50 MG tablet 50 mg PO DAILY levetiracetam 1,000 MG tablet 1,000 mg PO BID Label Comments: TAKE 1 TABLET TWICE DAILY cetirizine [Zyrtec] 10 MG capsule 10 mg PO DAILY Pravastatin Sodium 20 MG tablet 20 mg PO DAILY Label Comments: TAKE 1 TABLET BY MOUTH DAILY cephalexin [cephalexin] 500 MG capsule 500 mg PO Q6 Qty: 40 0RF Primary Care Provider: Adrian Ley Referrals: Adrian Ley MD [Primary Care Provider] - 3-5 Days if not improving Disposition Disposition: Home, Self Care
[2022-03-07] MEDS: Orphenadrine 60 MG/2 ML Ampul IM (16:28)
== END 2022-03-07 16:45 | disposition home or self-care (01) ==
PROVIDERS: Emergency Provider Emergency Medicine; PCP Family Medicine; Visit Provider Emergency Medicine
DX: S39.012A Strain of muscle, fascia and tendon of lower back, initial encounter (principal); F17.200 Nicotine dependence, unspecified, uncomplicated; Z79.899 Other long term (current) drug therapy; X58.XXXA Exposure to other specified factors, initial encounter
CPT/HCPCS: 96372; 99282

== ENCOUNTER → 2022-07-06 | Outpatient (CLI) | payer MEDICAID, SELFPAY | END | disposition home or self-care (01) | LOC: LABSPEC 16:20 | PROVIDERS: PCP Family Medicine; Visit Provider Surgery | DX: N61.1 Abscess of the breast and nipple (principal); T14.8XXD Other injury of unspecified body region, subsequent encounter | CPT/HCPCS: 87070; 87075; 87077; 87081; 87205 ==

== ENCOUNTER → 2022-07-22 | Outpatient (CLI) | payer MEDICAID, SELFPAY ==
[2022-08-03 15:09] LABS: HPV APTIMA, High Risk Negative (Negative)
== END | disposition home or self-care (01) ==
PROVIDERS: PCP Family Medicine; Visit Provider Obstetrics & Gynecology
DX: Z12.4 Encounter for screening for malignant neoplasm of cervix (principal)
CPT/HCPCS: 87624; 88175; G0145

== ENCOUNTER 2023-06-12 14:43 | Emergency (ER) | payer MEDICAID, SELFPAY ==
[2023-06-12 14:44] VITALS: BP 121/72; PULSE 112; RESP 18; TEMP 36.3; O2SAT 95; BMI 27.1
--- NOTE | 2023-06-12 15:02 | EDS_ITS ---
<Statement entered by Romario Samuel MD - 06/12/23 20:38> I have personally performed a face to face assessment of the patient and have reviewed the CARYN Note. HPI History of Present Illness Chief Complaint: Back Narrative Narrative: 43-year-old female with chronic low back problems off and on. Yesterday she stood up and felt pain in her bilateral low back goes slightly into the buttocks. No radiation down her legs. No weakness paresthesias saddle anesthesia or bladder or bowel incontinence. No trauma. She states in the past this has been managed with rest and going to the chiropractor. [facility] Medical History (Updated 06/12/23 @ 15:04 by LAVON Mg) Breast abscess Depression Genital herpes GERD (gastroesophageal reflux disease) History of asthma History of sciatica Hx LEEP (loop electrosurgical excision procedure), cervix, Hyperlipidemia Mental retardation RSD (reflex sympathetic dystrophy) Seizure disorder Home Medications albuterol sulfate 90 mcg/actuation aerosol inhaler (Ventolin HFA) 2 puff inhalation Q4H PRN PRN Sob &/Or Wheezing 09/02/15 [History Last Taken Unknown] cetirizine 10 mg capsule (Zyrtec) 10 mg PO DAILY 09/09/16 [History Last Taken Unknown] folic acid 1 mg tablet 1 mg PO DAILY 09/09/16 [History Last Taken Unknown] sertraline 50 mg tablet 50 mg PO DAILY 09/09/16 [History Last Taken Unknown] cyclobenzaprine 10 mg tablet 10 mg PO BID PRN muscle spasm #21 tabs 03/07/22 [Rx Last Taken Unknown] atorvastatin 80 mg tablet ea PO 05/21/22 [History Last Taken Unknown] famotidine 20 mg tablet 20 mg PO BID 05/21/22 [History Last Taken Unknown] fluticasone propionate 50 mcg/actuation nasal spray,suspension spray intranasal 05/21/22 [History Last Taken Unknown] levetiracetam 1,000 mg tablet 1,500 mg PO BID 05/21/22 [History Last Taken Unknown] pyridoxine (vitamin B6) 250 mg tablet 250 mg PO DAILY 05/21/22 [History Last Taken Unknown] sumatriptan succinate 50 mg tablet ea PO 05/21/22 [History Last Taken Unknown] ibuprofen 600 mg tablet 600 mg PO Q6H PRN PRN pain #20 TABLETS 06/12/23 [Rx Last Taken Unknown] tizanidine 4 mg tablet 4 mg PO Q8H PRN muscle spasticity 5 days #15 tabs 06/12/23 [Rx Last Taken Unknown] Allergy/AdvReac Type Severity Reaction Status Date / Time erythromycin base Allergy Hives Verified 06/12/23 14:44 [Erythromycin Base] ketorolac tromethamine Allergy Rash Verified 06/12/23 14:44 [From Toradol] naproxen [From Naprosyn] Allergy Rash Verified 06/12/23 14:44 Family History Mother Uterine cancer Hypertension Hyperlipidemia Father Hyperlipidemia Pulmonary embolism and infarction Surgical History (Updated 07/23/22 @ 16:03 by Darlyn Baugh) History of D&C History of surgery on arm Hx of toe surgery Status post incision and drainage (~03/2022) Social History (Updated 07/22/22 @ 09:09 by Priscilla Henriquez) Smoking Status: Light Smoker (<10/day) alcohol intake: never substance use type: does not use caffeine: Yes what type of physical activity do you participate in: walking frequency: daily seatbelt use: always do you feel safe at home: Yes additional social history: Gloria QUICK ROS ED ROS Narrative Constitutional: Negative for fever, chills, malaise. Neuro: Negative for motor/sensory dysfunction. Musc: Negative for joint pain, swelling, trauma. EXAM Physical Exam Narrative Exam Narrative: CONST: Patient sitting in no acute distress. EYES: Normal inspection. NECK: Normal inspection. RESP: No respiratory distress, CTAB. CVS: Regular rate and rhythm, no murmur, no gallop. Back: Normal inspection, tender over bilateral lumbar muscles, no midline tenderness or step-offs. 5/5 strength in bilateral hip flexion, knee flexion/extension, DF/PF. Normal sensation, 2+ DP pulses. SKIN: Color normal, no rash, warm, dry, intact. EXTREMITIES: Normal appearance, no pedal edema. NEURO: Oriented x4. PSYCH: Normal affect. Const Vital Signs: 06/12/23 14:44 Temperature 97.3 F L Temperature Source Temporal Pulse Rate 112 H Respiratory Rate 18 Blood Pressure 121/72 H Blood Pressure Mean 88 Pulse Ox 95 Oxygen Delivery Method Room Air MDM MDM MDM Narrative Medical decision making narrative: Patient has bilateral lower back pain after standing up yesterday. She has reproducible bilateral lumbar muscular pain. No midline pain or step-offs and lower extremity MSPs and reflexes are intact. She has no trauma so no indication for imaging and no red flag symptoms concerning for cauda equina syndrome. Exam is consistent with musculoskeletal strain. She was treated with 1 [place] tablet here but told that narcotics are not prescribed for this condition. She states she cannot take Toradol or naproxen but tolerates ibuprofen so I prescribed ibuprofen and tizanidine for home. She was discharged in stable condition. Discharge Plan Triage Chief Complaint: Back ED Midlevel Provider: Jordyn Miramontes ED Provider: Romario Samuel Dx/Rx/DC Orders Clinical Impression: Acute lumbar myofascial strain Instructions: ED Back Sprain/Strain Prescriptions: New ibuprofen 600 mg tablet 600 mg PO Q6H PRN PRN (Reason: pain) Qty: 20 0RF tizanidine 4 mg tablet 4 mg PO Q8H PRN (Reason: muscle spasticity) 5 Days Qty: 15 0RF No Action atorvastatin 80 mg tablet PO Patient Comments: Take 1 tablet by mouth daily at bedtime. For cholesterol. famotidine 20 mg tablet 20 mg PO BID Patient Comments: TAKE 1 TABLET BY MOUTH TWICE DAILY fluticasone propionate 50 mcg/actuation spray,suspension intranasal sumatriptan succinate 50 mg tablet PO Patient Comments: take 1 tablet by mouth as needed for migraine; can take another 1 tablet in 1-2 hours if needed; limit 200 mg per 24 hours pyridoxine (vitamin B6) 250 mg tablet 250 mg PO DAILY albuterol sulfate [Ventolin HFA] 1 INHALER inhaler 2 puff inhalation Q4H PRN PRN (Reason: Sob &/Or Wheezing) folic acid 1 MG tablet 1 mg PO DAILY Patient Comments: sertraline 50 MG tablet 50 mg PO DAILY Zyrtec 10 MG capsule 10 mg PO DAILY levetiracetam 1,000 mg tablet 1,500 mg PO BID Patient Comments: TAKE 1 TABLET TWICE DAILY cyclobenzaprine 10 mg tablet 10 mg PO BID PRN (Reason: muscle spasm) Qty: 21 0RF Primary Care Provider: Adrian Ley Referrals: Adrian Ley MD [Primary Care Provider] - Activity Restrictions/Additional Instructions: In addition to ibuprofen and tizanidine (muscle relaxer) you can also take Tylenol 1000 mg every 6 hours and use heat or ice. Follow-up with your primary care doctor. Disposition Disposition: Home, Self Care
[2023-06-12] MEDS: tiZANidine HCl 2 MG Tablet 4 MG PO (15:58)
[2023-06-12] MEDS: HYDROcodone Bitartrate/Apap 5/325 Tablet PO (15:58)
== END 2023-06-12 16:00 | disposition home or self-care (01) ==
LOC: ED 15:07
PROVIDERS: Emergency Provider Emergency Medicine; PCP Family Medicine; Visit Provider Emergency Medicine
DX: S39.012A Strain of muscle, fascia and tendon of lower back, initial encounter (principal); F17.200 Nicotine dependence, unspecified, uncomplicated; E78.5 Hyperlipidemia, unspecified; X58.XXXA Exposure to other specified factors, initial encounter
CPT/HCPCS: 99283

== ENCOUNTER 2023-06-27 15:38 | Emergency (ER) | payer MEDICAID, SELFPAY ==
[2023-06-27 15:39] VITALS: BP 119/80; PULSE 91; RESP 16; TEMP 36.3; O2SAT 98; BMI 26.9
== END 2023-06-27 16:03 | disposition left against medical advice (07) ==
LOC: ED 16:23
PROVIDERS: PCP Family Medicine
DX: Z53.21 Procedure and treatment not carried out due to patient leaving prior to being seen by health care provider (principal)

== ENCOUNTER 2023-06-28 08:14 | Emergency (ER) | payer MEDICAID, SELFPAY ==
[2023-06-28 08:15] VITALS: BP 118/71; PULSE 79; RESP 16; TEMP 36.1; O2SAT 99
[2023-06-28 08:17] VITALS: BMI 27.8
--- NOTE | 2023-06-28 08:38 | CT_ITS ---
STUDY: CT BRAIN WITHOUT CONTRAST REASON FOR EXAM: Female, 43 years old. Headache RADIATION DOSAGE (If Supplied By Facility): CTDIvol = ( 44.99 ) mGy, DLP = ( 779.24 ) mGycm TECHNIQUE: Transaxial CT imaging of the brain was performed without administration of intravenous contrast material. Individualized dose optimization techniques were used for this CT. COMPARISON: No relevant priors. FINDINGS: Normal soft tissue structures. Normal calvarium. Normal size ventricles and extra-axial spaces for the patient''s age. Normal white matter tracts of the cerebral hemispheres. Normal basal ganglia and thalami. Normal brainstem. Normal cerebellum. There is no intracranial hemorrhage. There are no findings of an acute ischemic infarction. Partial opacification of the maxillary sinuses bilaterally worse on the right side. 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 Mucosal thickening of the ethmoid sinuses. CT/Brain/Head without Contrast IMPRESSION: Sinusitis. Electronically Signed: Ron Story MD at 9:53 EDT ,
--- NOTE | 2023-06-28 08:41 | EDS_ITS ---
HPI History of Present Illness Chief Complaint: General Illness Detail of Chief Complaint: Headache and cough Informant: patient Narrative Narrative: Patient presents to the emergency department with complaint mostly of headache and cough x3 days. Patient states that she has been using her inhaler more. Patient states that headache came on suddenly and currently rates it a 10 out of 10. She does have history of migraines. She has been taking her migraine medicine but has not been helping. She called her PCP office and was told to to be seen in the emergency department for evaluation yesterday however the department apparently was busy and she did not come in or stay. Patient also concerned about black mold in her home and wonders if her symptoms are related to that. She denies any fever. She denies sick contacts. She is been using her inhaler more for her cough. No family history of brain tumors or aneurysms. [facility] Medical History (Updated 06/28/23 @ 10:[address] Reilly Fulton, ) Breast abscess Depression Genital herpes GERD (gastroesophageal reflux disease) History of asthma History of sciatica Hx LEEP (loop electrosurgical excision procedure), cervix, Hyperlipidemia Mental retardation RSD (reflex sympathetic dystrophy) Seizure disorder Home Medications albuterol sulfate 90 mcg/actuation aerosol inhaler (Ventolin HFA) 2 puff inhalation Q4H PRN PRN Sob &/Or Wheezing 09/02/15 [History Last Taken Unknown] cetirizine 10 mg capsule (Zyrtec) 10 mg PO DAILY 09/09/16 [History Last Taken Unknown] folic acid 1 mg tablet 1 mg PO DAILY 09/09/16 [History Last Taken Unknown] sertraline 50 mg tablet 50 mg PO DAILY 09/09/16 [History Last Taken Unknown] cyclobenzaprine 10 mg tablet 10 mg PO BID PRN muscle spasm #21 tabs 03/07/22 [Rx Last Taken Unknown] atorvastatin 80 mg tablet 80 mg PO QHS 05/21/22 [History Last Taken Unknown] famotidine 20 mg tablet 20 mg PO BID 05/21/22 [History Last Taken Unknown] fluticasone propionate 50 mcg/actuation nasal spray,suspension 2 spray intranasal Q12H PRN allergy symptoms 05/21/22 [History Last Taken Unknown] levetiracetam 1,000 mg tablet 1,500 mg PO BID 05/21/22 [History Last Taken Unknown] pyridoxine (vitamin B6) 250 mg tablet 250 mg PO DAILY 05/21/22 [History Last Taken Unknown] sumatriptan succinate 50 mg tablet 50 mg PO DAILY 05/21/22 [History Last Taken Unknown] ibuprofen 600 mg tablet 600 mg PO Q6H PRN PRN pain #20 TABLETS 06/12/23 [Rx Last Taken Unknown] tizanidine 4 mg tablet 4 mg PO Q8H PRN muscle spasticity 5 days #15 tabs 06/12/23 [Rx Last Taken Unknown] prednisone 20 mg tablet 20 mg PO BID #10 tabs 06/28/23 [Rx Last Taken Unknown] Allergy/AdvReac Type Severity Reaction Status Date / Time erythromycin base Allergy Hives Verified 06/28/23 08:17 [Erythromycin Base] ketorolac tromethamine Allergy Rash Verified 06/28/23 08:17 [From Toradol] naproxen [From Naprosyn] Allergy Rash Verified 06/28/23 08:17 Family History Mother Uterine cancer Hypertension Hyperlipidemia Father Hyperlipidemia Pulmonary embolism and infarction Surgical History History of D&C History of surgery on arm Hx of toe surgery Status post incision and drainage (~03/2022) Social History (Updated 07/22/22 @ 09:09 by Priscilla Henriquez) Smoking Status: Light Smoker (<10/day) alcohol intake: never substance use type: does not use caffeine: Yes what type of physical activity do you participate in: walking frequency: daily seatbelt use: always do you feel safe at home: Yes additional social history: Gloria QUICK ED Review of Systems ROS Unobtainable: other Constitutional Constitutional ED: Reports lethargy; Denies chills, fever(s), sweats or weight loss Eyes Eyes: Denies blurry vision, change in vision or diplopia ENT ENT ED: Denies rhinorrhea or sore throat Cardiovascular Cardiovascular: Denies chest pain, orthopnea or racing heartbeat Respiratory/Chest Respiratory/Chest: Reports cough; Denies dyspnea, dyspnea on exertion, orthopnea or sputum Gastrointestinal Gastrointestinal: Denies abdominal pain, diarrhea, nausea or vomiting Genitourinary Genitourinary ED: Denies dysuria, hematuria or urinary frequency Musculoskeletal Musculoskeletal: Denies arthralgias, back pain, myalgias or neck pain Integumentary Denies abscess, Abrasions or rash Neurologic Neurologic: Reports headache(s); Denies weakness Psychiatric Psychiatric: Denies anxiety, depression or suicidal thoughts Endocrine Endocrinology: Denies polydipsia, polyphagia or polyuria Hematologic/Lymphatic Hematologic/Lymphatic: Denies easy bleeding, easy bruising or lymphadenopathy Allergic/Immunologic Allergic/Immunologic ED: Denies mouth swelling, tongue swelling or urticaria EXAM Physical Exam Const Vital Signs: 06/28/23 08:15 06/28/23 08:33 Temperature 96.9 F L Temperature Source Temporal Pulse Rate 79 Respiratory Rate 16 Respiratory Effort Normal Non-Labored Respiratory Pattern Normal Blood Pressure 118/71 Blood Pressure Mean 86 Pulse Ox 99 Oxygen Delivery Method Room Air Positive well nourished and well developed General Appearance ED: well developed and NAD HEENT Reports TM's clear and moist mucous membranes normocephalic and atraumatic; Negative for trauma or tenderness Tympanic Membrane ED: Yes TM's clear Eyes PERRL and EOMs intact bilaterally General Eye ED: Negative for pale conjunctiva or scleral icterus Neck no lymphadenopathy, supple and no JVD General: Negative for tenderness Chest Wall inspection of chest normal and palpation of chest normal Chest: Negative for tenderness Resp normal respiratory effort and clear to auscultation bilaterally Effort and Inspection: Negative for respiratory distress or pain with movement Auscultation: Negative for rhonchi, wheezes or diminished lung sounds Cardio regular rate, regular rhythm, S1 normal heart sound, S2 normal heart sound and no murmurs Peripheral Pulses: pulses 2+ throughout GI normal to inspection, nondistended, normoactive bowel sounds, soft to palpation, non-tender, non-distended and no masses Back/Spine no CVA tenderness and no thoracic nor lumbar tenderness Extremity normal to inspection General Extremety ED: Negative for edema General Extremity: Negative for edema Neuro oriented x3, CN's II-XII intact bilaterally, no sensory deficits noted and gait normal Neuro Narrative: Finger-nose and heel mejia testing within normal limits, negative Romberg, negative for drift, fundi benign Sensorium / Orientation: awake, alert, oriented to person, oriented to place and oriented to time Motor Exam: strength 5/5 throughout and strength abnormal Psych mental status grossly normal Skin no rashes or lesions noted and no wounds MDM MDM MDM Narrative Medical decision making narrative: Patient presents with a headache and increased respiratory symptoms. Migraine meds did not help her headache and this headaches more severe than usual. We will obtain a CT scan of the brain without contrast which was performed and showed sinusitis otherwise no acute abnormalities of intracranial hemorrhage or bleeding. Patient also had a chest x-ray to rule out pneumonia and the chest x- ray was normal. COVID and flu testing was negative. Patient was medicated with Compazine as well as Benadryl and a liter of the same fluid bolus and her headache mostly resolved and is down to a 2 out of 10 currently. At this point I suspect possibility of viral URI and will start patient on prednisone. Headache I suspect likely related to viral URI versus migraine. Advised to follow-up with primary care physician within next 3 to 5 days. I do not feel there is any need for further blood work or blood cultures or sputum cultures. Radiography Diagnostic Testing: Clinical Impression(s) from Imaging Studies Brain CT 06/28/23 08:38 IMPRESSION: Sinusitis. Electronically Signed: Ron Story MD at 9:53 EDT , Chest X-Ray 06/28/23 08:50 IMPRESSION: Normal x-ray examination of the chest. Electronically Signed: Ron Story MD at 9:06 EDT , Discharge Plan Triage Chief Complaint: General Illness ED Provider: Reilly Fulton Dx/Rx/DC Orders Clinical Impression: Asthmatic bronchitis, Headache Instructions: ED Bronchitis with Wheezing (Adult), ED, Migraine (Classical) Prescriptions: New prednisone 20 mg tablet 20 mg PO BID Qty: 10 0RF No Action atorvastatin 80 mg tablet 80 mg PO QHS Patient Comments: Take 1 tablet by mouth daily at bedtime. For cholesterol. famotidine 20 mg tablet 20 mg PO BID Patient Comments: TAKE 1 TABLET BY MOUTH TWICE DAILY fluticasone propionate 50 mcg/actuation spray,suspension 2 spray intranasal Q12H PRN (Reason: allergy symptoms) sumatriptan succinate 50 mg tablet 50 mg PO DAILY Patient Comments: take 1 tablet by mouth as needed for migraine; can take another 1 tablet in 1-2 hours if needed; limit 200 mg per 24 hours pyridoxine (vitamin B6) 250 mg tablet 250 mg PO DAILY albuterol sulfate [Ventolin HFA] 1 INHALER inhaler 2 puff inhalation Q4H PRN PRN (Reason: Sob &/Or Wheezing) folic acid 1 MG tablet 1 mg PO DAILY Patient Comments: sertraline 50 MG tablet 50 mg PO DAILY Zyrtec 10 MG capsule 10 mg PO DAILY levetiracetam 1,000 mg tablet 1,500 mg PO BID Patient Comments: TAKE 1 TABLET TWICE DAILY cyclobenzaprine 10 mg tablet 10 mg PO BID PRN (Reason: muscle spasm) Qty: 21 0RF ibuprofen 600 mg tablet 600 mg PO Q6H PRN PRN (Reason: pain) Qty: 20 0RF tizanidine 4 mg tablet 4 mg PO Q8H PRN (Reason: muscle spasticity) 5 Days Qty: 15 0RF Primary Care Provider: Adrian Ley Referrals: Adrian Ley MD [Primary Care Provider] - 5-7 Days Disposition Disposition: Home, Self Care
--- NOTE | 2023-06-28 08:50 | RAD_ITS ---
STUDY: X-RAY CHEST REASON FOR EXAM: Female, 43 years old. Cough. Exposure to mold. TECHNIQUE: Single AP portable view of the chest. COMPARISON: Comparison is made with prior study dated October 15, 2010. FINDINGS: The lungs are clear and expanded. There is no demonstrated pleural abnormality. Normal size heart. Normal mediastinum and bandar. Normal visualized pulmonary arteries. Normal visualized aortic arch and descending thoracic aorta. Normal visualized thoracic spine. Normal visualized ribs, clavicles, and shoulders. There is no demonstrated abnormality of the visualized soft tissue structures of the upper abdomen. RAD/Chest 1 View (Portable) IMPRESSION: Normal x-ray examination of the chest. Electronically Signed: Ron Story MD at 9:06 EDT ,
[2023-06-28] MEDS: proCHLORPERazine 10 MG/2 ML Vial IV (08:58)
[2023-06-28] MEDS: DiphenhydrAMINE 50 MG/ML Syringe 25 MG IV (08:58)
[2023-06-28] MEDS: 0.9% Normal Saline (1000mL) 1,000 ML 1000 ML IV (08:58)
[2023-06-28 10:21] VITALS: BP 134/72; PULSE 89; RESP 16; TEMP 36.9
== END 2023-06-28 10:25 | disposition home or self-care (01) ==
PROVIDERS: Emergency Provider Emergency Medicine; PCP Family Medicine; Visit Provider Emergency Medicine
DX: J45.909 Unspecified asthma, uncomplicated (principal); R51.9 Headache, unspecified; F17.200 Nicotine dependence, unspecified, uncomplicated; E78.5 Hyperlipidemia, unspecified; Z79.52 Long term (current) use of systemic steroids
CPT/HCPCS: 70450; 71045; 87428; 96361; 96374; 96375; 99283; J7030; A4216

== ENCOUNTER 2024-06-10 12:53 | Emergency (ER) | payer MEDICAID, SELFPAY ==
[2024-06-10 12:54] VITALS: BP 126/74; PULSE 80; RESP 14; TEMP 36.9; O2SAT 98; BMI 25.2
[2024-06-10] MEDS: Orphenadrine 100 MG Tablet PO (13:33)
[2024-06-10] MEDS: Acetaminophen 325 MG Tablet 650 MG PO (13:33)
--- NOTE | 2024-06-10 14:16 | EDS_ITS ---
HPI <LAVON Garcia - Last Filed: 06/10/24 16:47> History of Present Illness Chief Complaint: Back Narrative Narrative: Patient presenting today with an acute exacerbation of her chronic low back pain that she has had since last night. She reports that she has had pain similar to this in the past. She denies any injury to her back, bowel/bladder incontinence, saddle paresthesia, fevers, chills, history of IV drug use, leg weakness, or urinary symptoms. She has been taking ibuprofen with minimal relief. PFSH <LAVON Garcia - Last Filed: 06/10/24 16:47> [facility] Medical History Hx LEEP (loop electrosurgical excision procedure), cervix, Hyperlipidemia GERD (gastroesophageal reflux disease) Depression Breast abscess RSD (reflex sympathetic dystrophy) History of sciatica Seizure disorder History of asthma Genital herpes Mental retardation Home Medications ?Medication ?Instructions ?Recorded ?Last Taken ?Type albuterol sulfate 90 mcg/actuation 2 puff inhalation Q4H PRN PRN Sob 09/02/15 Unknown History aerosol inhaler (Ventolin HFA) &/Or Wheezing cetirizine 10 mg capsule (Zyrtec) 10 mg PO DAILY 09/09/16 Unknown History folic acid 1 mg tablet 1 mg PO DAILY 09/09/16 Unknown History sertraline 50 mg tablet 50 mg PO DAILY 09/09/16 Unknown History atorvastatin 80 mg tablet 80 mg PO QHS 05/21/22 Unknown History fluticasone propionate 50 2 spray intranasal Q12H PRN 05/21/22 Unknown History mcg/actuation nasal allergy symptoms spray,suspension levetiracetam 1,000 mg tablet 1,500 mg PO BID 05/21/22 Unknown History pyridoxine (vitamin B6) 250 mg 250 mg PO DAILY 05/21/22 Unknown History tablet sumatriptan succinate 50 mg tablet 50 mg PO DAILY 05/21/22 Unknown History ibuprofen 600 mg tablet 600 mg PO Q6H PRN PRN pain #20 06/12/23 Unknown Rx TABLETS hydrocodone-acetaminophen 5-325mg 1 tab PO Q4H PRN PRN Pain 2 days 06/10/24 Unknown Rx 5mg-325mg #6 TABLETS tizanidine 2 mg tablet 2 mg PO Q8H PRN muscle spasticity 06/10/24 Unknown Rx #15 tabs Allergy/AdvReac Type Severity Reaction Status Date / Time erythromycin base Allergy Hives Verified 06/10/24 12:55 (Erythromycin Base) ketorolac tromethamine (From Allergy Rash Verified 06/10/24 12:55 Toradol) naproxen (From Naprosyn) Allergy Rash Verified 06/10/24 12:55 Family History Mother Uterine cancer Hypertension Hyperlipidemia Father Hyperlipidemia Pulmonary embolism and infarction Surgical History History of D&C Status post incision and drainage (~03/2022) History of surgery on arm Hx of toe surgery Social History Smoking Status: Light Smoker (<10/day) alcohol intake: never substance use type: does not use caffeine: Yes what type of physical activity do you participate in: walking frequency: daily seatbelt use: always do you feel safe at home: Yes additional social history: Gloria QUCIK <LAVON Garcia - Last Filed: 06/10/24 16:47> ROS ED Constitutional Constitutional ED: Denies chills or fever(s) Cardiovascular Cardiovascular: Denies chest pain Respiratory/Chest Respiratory/Chest: Denies dyspnea Gastrointestinal Gastrointestinal: Denies abdominal pain, nausea or vomiting Genitourinary Genitourinary ED: Denies dysuria, hematuria or urinary urgency Musculoskeletal Musculoskeletal: Reports back pain Integumentary Denies rash Neurologic Neurologic: Denies paresthesias or weakness EXAM <LAVON Garcia - Last Filed: 06/10/24 16:47> Physical Exam Const Vital Signs: 06/10/24 12:54 06/10/24 14:24 Temperature 98.5 F 97.1 F L Temperature Source Temporal Pulse Rate 80 61 Respiratory Rate 14 18 Blood Pressure 126/74 H 116/78 Blood Pressure Mean 91 90 Pulse Ox 98 100 Oxygen Delivery Method Room Air Positive well nourished, well developed and no apparent distress General Appearance ED: well developed HEENT Reports normocephalic and head/scalp atraumatic Mouth ED: Yes moist mucous membranes normal Eyes PERRL and EOMs intact bilaterally Neck full ROM and supple Chest Wall inspection of chest normal Resp normal respiratory effort and clear to auscultation bilaterally Cardio regular rate and regular rhythm GI soft to palpation, non-tender, non-distended and no masses Back/Spine normal ROM and normal to inspection Back/Spine Narrative: Minimal lumbar spinal tenderness to palpation, right and left lumbar paraspinal tenderness palpation. Extremity normal to inspection and full ROM Neuro oriented x3, CN's II-XII intact bilaterally, moves all extremities, no focal motor deficits and no sensory deficits noted Neuro Narrative: Strength and sensation 5 out of 5 in the lower extremities, Sensorium / Orientation: awake and alert Motor Exam: strength 5/5 throughout Deep Tendon Reflexes: Rt Patellar (L4): 2+ and Lt Patellar (L4): 2+ Deep Tendon Reflexes Back: Rt Patellar (L4): 2+ and Lt Patellar (L4): 2+ Psych mental status grossly normal and thought process normal Skin no rashes or lesions noted and no wounds <Dr. James Sheldon DO - Last Filed: 06/10/24 15:02> Physical Exam Const Vital Signs: 06/10/24 12:54 06/10/24 14:24 Temperature 98.5 F 97.1 F L Temperature Source Temporal Pulse Rate 80 61 Respiratory Rate 14 18 Blood Pressure 126/74 H 116/78 Blood Pressure Mean 91 90 Pulse Ox 98 100 Oxygen Delivery Method Room Air [facility] <LAVON Garcia - Last Filed: 06/10/24 16:47> [facility] Narrative Medical decision making narrative: Patient presenting today with an acute exacerbation of her chronic low back pain. She is nontoxic-appearing, vitals are unremarkable. Examination is consistent with a muscular strain of her back. She has been seen in the ED multiple times for similar symptoms. She does not have any symptoms concerning for cauda equina syndrome, low suspicion for spinal abscess. I do not feel that any emergent imaging is indicated at this time. She was given Tylenol and Norflex here. I will give her muscle relaxers for home and she can continue taking ibuprofen. She will also be given a few [place] for pain as needed. I have encouraged her to follow-up with her PCP. She will be discharged home in stable condition. <Dr. James Sheldon DO - Last Filed: 06/10/24 15:02> MDM Treatment and Re-Evaluation Narrative: I have personally performed a face to face assessment of the patient and have reviewed the CARYN Note. I performed a substantive portion of the visit including all aspects of the following. My carias findings include: History is 44-year-old female with a history of recurrent intermittent low back pain. Patient denies any loss of bowel or bladder control. No fevers. She states she has done physical therapy for this before. She recently started a new job and wonders if that is causing some pain. Pain is worse with movement. No red flag history. Exam is tender to palpation of the lower lumbar spine. She is walking normally. I do not appreciate any muscular weakness or sensory loss. Medical Decison Making we can treat the patient's pain and I would recommend PCP follow-up. If this is a recurrent issue and she has not had an MRI of this before that may be indicated at some point. I do not appreciate neurologic deficits to suggest that any emergent MRI is needed. Patient is comfortable with this plan Discharge Plan Triage Chief Complaint: Back ED Midlevel Provider: Nora Vance ED Provider: James Sheldon Dx/Rx/DC Orders Clinical Impression: Low back strain Instructions: ED Back Sprain/Strain Prescriptions: New tizanidine 2 mg tablet 2 mg PO Q8H PRN (Reason: muscle spasticity) Qty: 15 0RF hydrocodone-acetaminophen 5-325 mg tablet 1 tab PO Q4H PRN PRN (Reason: Pain) 2 Days Qty: 6 0RF No Action atorvastatin 80 mg tablet 80 mg PO QHS Patient Comments: Take 1 tablet by mouth daily at bedtime. For cholesterol. fluticasone propionate 50 mcg/actuation spray,suspension 2 spray intranasal Q12H PRN (Reason: allergy symptoms) sumatriptan succinate 50 mg tablet 50 mg PO DAILY Patient Comments: take 1 tablet by mouth as needed for migraine; can take another 1 tablet in 1-2 hours if needed; limit 200 mg per 24 hours pyridoxine (vitamin B6) 250 mg tablet 250 mg PO DAILY albuterol sulfate [Ventolin HFA] 1 INHALER inhaler 2 puff inhalation Q4H PRN PRN (Reason: Sob &/Or Wheezing) folic acid 1 MG tablet 1 mg PO DAILY Patient Comments: sertraline 50 MG tablet 50 mg PO DAILY Zyrtec 10 MG capsule 10 mg PO DAILY levetiracetam 1,000 mg tablet 1,500 mg PO BID Patient Comments: TAKE 1 TABLET TWICE DAILY ibuprofen 600 mg tablet 600 mg PO Q6H PRN PRN (Reason: pain) Qty: 20 0RF Primary Care Provider: Adrian Ley Referrals: Adrian Ley MD [Primary Care Provider] - 3-5 Days Activity Restrictions/Additional Instructions: Follow-up with your PCP and return for any worsening symptoms or other concerns. Print Language: [place] Disposition Disposition: Home, Self Care Discharge Date/Time: 06/10/24 14:25
[2024-06-10 14:24] VITALS: BP 116/78; PULSE 61; RESP 18; TEMP 36.2; O2SAT 100
== END 2024-06-10 14:25 | disposition home or self-care (01) ==
PROVIDERS: Emergency Provider Emergency Medicine; PCP Family Medicine; Visit Provider Emergency Medicine
DX: S39.012A Strain of muscle, fascia and tendon of lower back, initial encounter (principal); E78.5 Hyperlipidemia, unspecified; G89.29 Other chronic pain; K21.9 Gastro-esophageal reflux disease without esophagitis; F17.200 Nicotine dependence, unspecified, uncomplicated; X58.XXXA Exposure to other specified factors, initial encounter
CPT/HCPCS: 99282

== ENCOUNTER → 2024-07-03 | Outpatient (CLI) | payer MEDICAID, SELFPAY ==
--- NOTE | 2024-07-03 08:41 | US_ITS ---
STUDY: ULTRASOUND BREAST - LEFT REASON FOR EXAM: Female, 44 years old. Left breast swelling. History of prior abscess drainage. TECHNIQUE: Axial and longitudinal images of the LEFT breast were performed with a high resolution ultrasound transducer. # OF IMAGES: 8 COMPARISON: Comparison is made with prior mammogram done earlier today. FINDINGS: LEFT Breast: The left periareolar region was examined with ultrasound. There is a 4 mm x 4 mm x 2 mm cyst at the 10:00 position of the breast at 1 cm from the nipple. US/Breast Limited Unilateral IMPRESSION: 4 mm x 4 mm x 2 mm cyst at the 10:00 position of the breast at 1 cm from the nipple. ASSESSMENT CATEGORY: BIRADS Category 2: Benign. A letter regarding these results will be sent to the patient by the facility within 30 days. Electronically Signed: Ron Story MD at 12:46 EDT ,
--- NOTE | 2024-07-03 08:41 | BI_ITS ---
MAMMOGRAPHY - BILATERAL DIAGNOSTIC REASON FOR EXAM: Female, 44 years old. History of prior left breast abscess and drainage. PERTINENT HISTORY: Non-contributory. TECHNIQUE: Digital bilateral breast cristina (3D mammographic acquisition) in the CC and MLO projections. 2-D mediolateral oblique (MLO) and craniocaudad (CC) views of both breasts were obtained. CAD: Full Field Digital Mammography with Computer Added Detection was performed. COMPARISON: None. Baseline examination. FINDINGS: Breast Composition: There are scattered areas of fibroglandular density. There are no dominant masses or suspicious calcifications. There is retraction of the left areolar nipple complex. There appears to be thickening of the areolar region. Correlation with ultrasound is recommended. No other significant abnormalities are identified. BI/DIAG MAMM W/CAD, BILAT IMPRESSION: Retraction of the left alveolar nipple complex with thickening of the areola. This most likely represents the area of prior abscess and scarring. Correlation with ultrasound recommended. ASSESSMENT CATEGORY: BIRADS Category 0: Incomplete. Need additional imaging evaluation. A letter regarding these results will be sent to the patient by the facility within 30 days. Approximately 10% of breast cancers are not detected by mammography. A normal mammogram should not delay biopsy of a clinically suspicious abnormality. Electronically Signed: Ron Story MD at 11:46 EDT ,
== END | disposition home or self-care (01) ==
LOC: OPBI 08:41
PROVIDERS: PCP Family Medicine; Referring Provider Advanced Practice Midwife; Visit Provider Advanced Practice Midwife
DX: N63.20 Unspecified lump in the left breast, unspecified quadrant (principal); Z87.2 Personal history of diseases of the skin and subcutaneous tissue
CPT/HCPCS: 77062; 76642; 77066; G0279

== ENCOUNTER → 2024-07-10 | Outpatient (CLI) | payer MEDICAID, SELFPAY | END | disposition home or self-care (01) | LOC: LABSPEC 16:53 | PROVIDERS: PCP Family Medicine; Referring Provider Surgery; Visit Provider Surgery | DX: N61.1 Abscess of the breast and nipple (principal) | CPT/HCPCS: 87070; 87075; 87077; 87186; 87205 ==

== ENCOUNTER → 2024-08-06 | Outpatient (CLI) | payer MEDICAID, SELFPAY | END | disposition home or self-care (01) | LOC: LABSPEC 09:24 | PROVIDERS: PCP Family Medicine; Referring Provider Physician Assistant; Visit Provider Physician Assistant | DX: N61.1 Abscess of the breast and nipple (principal) | CPT/HCPCS: 87070; 87075; 87077; 87205 ==

== ENCOUNTER 2024-09-18 17:22 | Emergency (ER) | payer MEDICAID, SELFPAY ==
[2024-09-18 17:23] VITALS: BP 115/65; PULSE 85; RESP 16; TEMP 36.8; O2SAT 99; BMI 25.0
--- NOTE | 2024-09-18 18:09 | ED.RN ---
Pt states she has to get up in the morning for work, will be going home. Ambulated out of dept without difficulty.
== END 2024-09-18 18:00 | disposition left against medical advice (07) ==
LOC: ED 18:11
PROVIDERS: PCP Family Medicine
DX: Z53.21 Procedure and treatment not carried out due to patient leaving prior to being seen by health care provider (principal)

== ENCOUNTER 2024-11-29 11:54 | Emergency (ER) | payer MEDICAID, SELFPAY ==
[2024-11-29 11:55] VITALS: BP 122/72; PULSE 76; RESP 14; TEMP 35.7; O2SAT 98; BMI 24.2
[2024-11-29] MEDS: Ketorolac 15 MG/ML Vial IM (12:45)
[2024-11-29] MEDS: diazePAM 2 MG Tablet PO (12:46)
--- NOTE | 2024-11-29 13:40 | ED.VIS.BACK ---
HPI History of Present Illness Chief Complaint: Back Narrative Narrative: Chief complaint and HPI: Low back pain. 44-year-old female with past medical history of chronic lumbar back pain presents for evaluation of low back pain. Patient states that she intermittently gets flareups of her low back pain. She states this episode happened shortly after awakening. She states that she missed work secondary to the pain. She denies any injury or trauma. States it feels like her typical back pain. Denies numbness, weakness, urinary retention, stool or urinary incontinence, saddle anesthesia, recent invasive manipulation of the spine, or fever. Denies any nausea, vomiting, abdominal pain, dysuria. Review of systems: See HPI Medications: As listed on the chart Allergies: As listed on the chart PFSH: Per chart Vital signs: As listed on the chart. Reviewed. Physical exam: Gen: A&O x3, NAD Head: Normocephalic, atraumatic Eyes: No sclera icterus, conjunctiva clear ENT: Moist mucous membranes Neck: Trachea midline, full range of motion, nontender CV: RRR, no murmurs, no peripheral edema Resp: Lungs CTA BL, no w/r/c GI: Abd soft, non-distended, non-tender, no r/r/g Musc: Full ROM, no deformity, strength +5/5 in all extremities, no midline spinal tenderness, no bony step-offs, mild tenderness to palpation of the paraspinal musculature bilaterally of the lower lumbar spine- no signs of trauma or infection, DP/PT pulses +2 bilaterally, Skin: Warm, dry, intact Neuro: Alert, oriented, grossly intact, sensation intact Psych: Cooperative, appropriate mood and affect [facility] Medical History Hx LEEP (loop electrosurgical excision procedure), cervix, Hyperlipidemia GERD (gastroesophageal reflux disease) Depression Breast abscess RSD (reflex sympathetic dystrophy) History of sciatica Seizure disorder History of asthma Genital herpes Mental retardation Home Medications ?Medication ?Instructions ?Recorded ?Last Taken ?Type albuterol sulfate 90 mcg/actuation 2 puff inhalation Q4H PRN PRN Sob 09/02/15 Unknown History aerosol inhaler (Ventolin HFA) &/Or Wheezing cetirizine 10 mg capsule (Zyrtec) 10 mg PO DAILY 09/09/16 Unknown History folic acid 1 mg tablet 1 mg PO DAILY 09/09/16 Unknown History sertraline 50 mg tablet 50 mg PO DAILY 09/09/16 Unknown History atorvastatin 80 mg tablet 80 mg PO QHS 05/21/22 Unknown History fluticasone propionate 50 2 spray intranasal Q12H PRN 05/21/22 Unknown History mcg/actuation nasal allergy symptoms spray,suspension pyridoxine (vitamin B6) 250 mg 250 mg PO DAILY 05/21/22 Unknown History tablet sumatriptan succinate 50 mg tablet 50 mg PO DAILY 05/21/22 Unknown History cyclobenzaprine 5 mg tablet 5 mg PO TID PRN muscle spasm 3 11/29/24 Unknown Rx days #9 tabs Allergy/AdvReac Type Severity Reaction Status Date / Time erythromycin base Allergy Hives Verified 11/29/24 11:54 (Erythromycin Base) ketorolac tromethamine (From Allergy Rash Verified 11/29/24 11:54 Toradol) naproxen (From Naprosyn) Allergy Rash Verified 11/29/24 11:54 Family History Mother Uterine cancer Hypertension Hyperlipidemia Father Hyperlipidemia Pulmonary embolism and infarction Surgical History History of D&C Status post incision and drainage (~03/2022) History of surgery on arm Hx of toe surgery Social History Smoking Status: Light Smoker (<10/day) alcohol intake: never substance use type: does not use caffeine: Yes what type of physical activity do you participate in: walking frequency: daily seatbelt use: always do you feel safe at home: Yes additional social history: Gloria Farmer EXAM Physical Exam Const Vital Signs: 11/29/24 11:55 Temperature 96.3 F L Temperature Source Temporal Pulse Rate 76 Respiratory Rate 14 Blood Pressure 122/72 H Blood Pressure Mean 88 Pulse Ox 98 Oxygen Delivery Method Room Air MDM MDM MDM Narrative Medical decision making narrative: 44-year-old female with past medical history of chronic lumbar back pain presents for evaluation of low back pain. Patient states that she intermittently gets flareups of her low back pain. This episode feels like her typical back pain. On presentation, patient is in no acute distress. Her physical exam is relatively unremarkable except for some mild paraspinal musculature tenderness of the lumbar spine. There has been no trauma. There is nothing to suggest any infectious etiology. There is no neurologic findings to suggest an acute cauda equina syndrome, infectious etiology, or any acute radiculopathy. At this point I do not feel any emergent imaging such as x-rays or MRI are warranted. Patient symptoms will be treated. Patient is in agreement to this. Toradol and Valium ordered for pain. On reevaluation, patient's pain is improved. She is requesting a work note. This was provided. Patient stable to discharge home. Recommended Tylenol and ibuprofen as needed for pain. Follow-up with PCP. Muscle relaxers as needed for spasm. She was educated on the use of muscle relaxers. Patient had a ride home. Impression: 1. Lumbar back spasm 2. History of chronic lumbar back pain Discharge Plan Triage Chief Complaint: Back ED Provider: Vj Nguyen Dx/Rx/DC Orders Clinical Impression: Back muscle spasm Instructions: Muscle Spasm, ED Back Spasm, No Trauma Prescriptions: New cyclobenzaprine 5 mg tablet 5 mg PO TID PRN (Reason: muscle spasm) 3 Days Qty: 9 0RF No Action atorvastatin 80 mg tablet 80 mg PO QHS Patient Comments: Take 1 tablet by mouth daily at bedtime. For cholesterol. fluticasone propionate 50 mcg/actuation spray,suspension 2 spray intranasal Q12H PRN (Reason: allergy symptoms) sumatriptan succinate 50 mg tablet 50 mg PO DAILY Patient Comments: take 1 tablet by mouth as needed for migraine; can take another 1 tablet in 1-2 hours if needed; limit 200 mg per 24 hours pyridoxine (vitamin B6) 250 mg tablet 250 mg PO DAILY albuterol sulfate [Ventolin HFA] 1 INHALER inhaler 2 puff inhalation Q4H PRN PRN (Reason: Sob &/Or Wheezing) folic acid 1 MG tablet 1 mg PO DAILY Patient Comments: sertraline 50 MG tablet 50 mg PO DAILY Zyrtec 10 MG capsule 10 mg PO DAILY Stand Alone Forms: ED Work / School Excuse Primary Care Provider: Adrian Ley Referrals: Adrian Ley MD [Primary Care Provider] - 3-5 Days Activity Restrictions/Additional Instructions: Do not drive or operate heavy machinery while taking muscle relaxers. Muscle relaxers can make you confused, lightheaded, and fatigued. They can increase falls. Follow-up with your PCP. Return back to the ED if symptoms change or worsen. Print Language: Lithuanian Disposition Disposition: Home, Self Care Discharge Date/Time: 11/29/24 14:04
== END 2024-11-29 14:04 | disposition home or self-care (01) ==
PROVIDERS: Emergency Provider Surgery; PCP Family Medicine; Visit Provider Surgery
DX: M62.830 Muscle spasm of back (principal); M54.50 Low back pain, unspecified; E78.5 Hyperlipidemia, unspecified; G89.29 Other chronic pain; K21.9 Gastro-esophageal reflux disease without esophagitis
CPT/HCPCS: 96372; 99282

== ENCOUNTER 2025-04-14 12:41 | Emergency (ER) | payer MEDICAID, SELFPAY ==
[2025-04-14 12:42] VITALS: BP 124/80; PULSE 86; RESP 16; TEMP 36.8; O2SAT 98; BMI 22.8
--- NOTE | 2025-04-14 12:56 | ED.VIS.BACK ---
HPI History of Present Illness Chief Complaint: Back Detail of Chief Complaint: Back pain Informant: patient Narrative Narrative: Patient presents with lower back pain that started last evening. 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 She has history of sciatica. Describes pain in the low back at times radiating to her buttocks and the back of the upper legs bilaterally. Patient denies recent injury. Denies fever chills or sweats. She denies dysuria urgency or frequency. She has an appointment to see her PCP in 4 days. She has had similar discomfort in the past. Pain is positional and worse with certain movements especially when bending or drawing her legs up. [facility] Medical History Hx LEEP (loop electrosurgical excision procedure), cervix, Hyperlipidemia GERD (gastroesophageal reflux disease) Depression Breast abscess RSD (reflex sympathetic dystrophy) History of sciatica Seizure disorder History of asthma Genital herpes Mental retardation Home Medications ?Medication ?Instructions ?Recorded ?Last Taken ?Type albuterol sulfate 90 mcg/actuation 2 puff inhalation Q4H PRN PRN Sob 09/02/15 Unknown History aerosol inhaler (Ventolin HFA) &/Or Wheezing cetirizine 10 mg capsule (Zyrtec) 10 mg PO DAILY 09/09/16 Unknown History folic acid 1 mg tablet 1 mg PO DAILY 09/09/16 Unknown History sertraline 50 mg tablet 50 mg PO DAILY 09/09/16 Unknown History atorvastatin 80 mg tablet 80 mg PO QHS 05/21/22 Unknown History fluticasone propionate 50 2 spray intranasal Q12H PRN 05/21/22 Unknown History mcg/actuation nasal allergy symptoms spray,suspension pyridoxine (vitamin B6) 250 mg 250 mg PO DAILY 05/21/22 Unknown History tablet sumatriptan succinate 50 mg tablet 50 mg PO DAILY 05/21/22 Unknown History cyclobenzaprine 5 mg tablet 5 mg PO TID PRN muscle spasm 3 11/29/24 Unknown Rx days #9 tabs cyclobenzaprine 10 mg tablet 10 mg PO TID PRN Muscle Spasm #20 04/14/25 Unknown Rx TABLETS hydrocodone-acetaminophen 5-325mg 1 tab PO Q4H PRN PRN Pain 2 days 04/14/25 Unknown Rx 5mg-325mg #10 TABLETS Allergy/AdvReac Type Severity Reaction Status Date / Time erythromycin base Allergy Hives Verified 04/14/25 12:43 (Erythromycin Base) ketorolac tromethamine (From Allergy Rash Verified 04/14/25 12:43 Toradol) naproxen (From Naprosyn) Allergy Rash Verified 04/14/25 12:43 Family History Mother Uterine cancer Hypertension Hyperlipidemia Father Hyperlipidemia Pulmonary embolism and infarction Surgical History History of D&C Status post incision and drainage (~03/2022) History of surgery on arm Hx of toe surgery Social History Smoking Status: Light Smoker (<10/day) alcohol intake: never substance use type: does not use caffeine: Yes what type of physical activity do you participate in: walking frequency: daily seatbelt use: always do you feel safe at home: Yes additional social history: Gloria QUICK ED Review of Systems ROS Unobtainable: other Constitutional Constitutional ED: Reports lethargy; Denies chills, fever(s), sweats or weight loss Eyes Eyes: Denies blurry vision, change in vision or diplopia ENT ENT ED: Denies rhinorrhea or sore throat Cardiovascular Cardiovascular: Denies chest pain, orthopnea or racing heartbeat Respiratory/Chest Respiratory/Chest: Denies cough, dyspnea, dyspnea on exertion, orthopnea or sputum Gastrointestinal Gastrointestinal: Denies abdominal pain, diarrhea, nausea or vomiting Genitourinary Genitourinary ED: Denies dysuria, hematuria or urinary frequency Musculoskeletal Musculoskeletal: Reports back pain; Denies arthralgias, myalgias or neck pain Integumentary Denies abscess, Abrasions or rash Neurologic Neurologic: Denies headache(s) or weakness Psychiatric Psychiatric: Denies anxiety, depression or suicidal thoughts Endocrine Endocrinology: Denies polydipsia, polyphagia or polyuria Hematologic/Lymphatic Hematologic/Lymphatic: Denies easy bleeding, easy bruising or lymphadenopathy Allergic/Immunologic Allergic/Immunologic ED: Denies mouth swelling, tongue swelling or urticaria EXAM Physical Exam Const Vital Signs: 04/14/25 12:42 Temperature 98.3 F Temperature Source Oral Pulse Rate 86 Respiratory Rate 16 Blood Pressure 124/80 H Blood Pressure Mean 94 Pulse Ox 98 Oxygen Delivery Method Room Air Positive well nourished and well developed General Appearance ED: well developed and NAD HEENT Reports TM's clear and moist mucous membranes normocephalic and atraumatic; Negative for trauma or tenderness Tympanic Membrane ED: Yes TM's clear Eyes PERRL and EOMs intact bilaterally General Eye ED: Negative for pale conjunctiva or scleral icterus Neck no lymphadenopathy, supple and no JVD General: Negative for tenderness Chest Wall inspection of chest normal and palpation of chest normal Chest: Negative for tenderness Resp normal respiratory effort and clear to auscultation bilaterally Effort and Inspection: Negative for respiratory distress or pain with movement Auscultation: Negative for rhonchi, wheezes or diminished lung sounds Cardio regular rate, regular rhythm, S1 normal heart sound, S2 normal heart sound and no murmurs Peripheral Pulses: pulses 2+ throughout GI normal to inspection, nondistended, normoactive bowel sounds, soft to palpation, non-tender, non-distended and no masses Back/Spine Back/Spine Narrative: Evaluation of the back reveals no evidence of erythema or warmth of the skin. She had some diffuse tenderness palpation over the lumbar spine and paraspinal musculature bilaterally. She has negative straight leg raises bilaterally. Deep tendon reflexes are plus 2 out of 4 bilaterally at the patella and Achilles. She has normal 5 extension bilaterally. She has normal sensation to light touch. She ambulates without difficulty. Extremity normal to inspection General Extremety ED: Negative for edema General Extremity: Negative for edema Neuro oriented x3, CN's II-XII intact bilaterally, no sensory deficits noted and gait normal Sensorium / Orientation: awake, alert, oriented to person, oriented to place and oriented to time Motor Exam: strength 5/5 throughout and strength abnormal Psych mental status grossly normal Skin no rashes or lesions noted and no wounds MDM MDM MDM Narrative Medical decision making narrative: Patient presents with atraumatic back pain similar to pain she has had in the past. Clinically looks well. No red flag symptoms of cauda equina. She has had no trauma and do not feel any imaging is indicated at this time. I did medicate her with 1 mg of Dilaudid and 60 mg of Norflex IM. She will be given a prescription for Flexeril and few [place] for pain. She is to keep her appointment with her primary care physician. She needed a work note for today but think she can go back for her next scheduled shift in 2 days. Discharge Plan Triage Chief Complaint: Back ED Provider: Reilly Fulton Dx/Rx/DC Orders Clinical Impression: Back pain Instructions: ED Back Pain (Acute or Chronic) Prescriptions: New cyclobenzaprine 10 mg tablet 10 mg PO TID PRN (Reason: Muscle Spasm) Qty: 20 0RF hydrocodone-acetaminophen 5-325 mg tablet 1 tab PO Q4H PRN PRN (Reason: Pain) 2 Days Qty: 10 0RF No Action atorvastatin 80 mg tablet 80 mg PO QHS Patient Comments: Take 1 tablet by mouth daily at bedtime. For cholesterol. fluticasone propionate 50 mcg/actuation spray,suspension 2 spray intranasal Q12H PRN (Reason: allergy symptoms) sumatriptan succinate 50 mg tablet 50 mg PO DAILY Patient Comments: take 1 tablet by mouth as needed for migraine; can take another 1 tablet in 1-2 hours if needed; limit 200 mg per 24 hours pyridoxine (vitamin B6) 250 mg tablet 250 mg PO DAILY albuterol sulfate [Ventolin HFA] 1 INHALER inhaler 2 puff inhalation Q4H PRN PRN (Reason: Sob &/Or Wheezing) folic acid 1 MG tablet 1 mg PO DAILY Patient Comments: sertraline 50 MG tablet 50 mg PO DAILY Zyrtec 10 MG capsule 10 mg PO DAILY cyclobenzaprine 5 mg tablet 5 mg PO TID PRN (Reason: muscle spasm) 3 Days Qty: 9 0RF Primary Care Provider: Adrian Ley Referrals: Adrian Ley MD [Primary Care Provider] - 3-5 Days Print Language: Hungarian Disposition Disposition: Home, Self Care
--- OUTSIDE RECORDS SUMMARY | 2025-04-14 12:59 | XMS RPT_ITS | CCD ---
Author Organization [facility] Care Team Providers Care Bioinformatics Analyst Name Role Phone IMCA Unavailable Unavailable KASI JOHNSON Unavailable Unavailable Ekta Ley MD Primary Care Provider Ekta Ley MD Primary Care Provider Ekta Ley MD Primary Care Provider Dr. Adrian Ley Primary Care Provider [phone] Dr. Adrian Ley Referring Provider Dr. Darian Goyal Attending Provider Dr. Linda Moise Attending Provider [phone] Ekta Ley MD Primary Care Provider AJAY MARCIAL PA-C Attending Unavailable DR ARIELLE MUNSON MD Primary Care Unavailabl e Ekta Ley MD Primary Care Provider Podlogar LIQUOR GALLERY OPERATOR.Demetrice KIMBLE Unavailable Tariq LIQUOR GALLERY OPERATOR.Edgard KIMBLE Unavailable Tariq LIQUOR GALLERY OPERATOR.SHYANNE, Edgard Unavailable Dr. Adrian Ley MD Primary Care Provider Dr. Adrian Lye MD Referring Provider [phone] Betsy Min PA-C Attending Provider Betsy Min PA-C Referring Provider Dr. Darian Goyal MD Attending Provider Provider, Ed Physician Attending Provider Debbie joyce Provider, Ed Physician Emergency Provider Debbie Arredondogett DO, Dr. Zabala Emergency Provider Crystal Villasenor Attending Unavailable Bursley, Adrian Primary Care Unavailable Bursley, Adrian Referring Unavailable Wan Ann Referring Unavailable Wan Ann Attending Unavailable Bursley, Adrian Primary Care Unavailable Betsy Lockhart Referring Unavailable Betsy Lockhart Attending Unavailable Bursley, Adrian Primary Care Unavailable Crystal Villasenor Referring Unavailable Crystal Villasenor Attending Unavailable Bursley, Adrian Primary Care Unavailable Vj Nguyen Attending Unavailabl e Bursley, Adrian Primary Care Unavailable James Sheldon Attending Unavailable Bursley, Adrian Primary Care Unavailable Provider, Ed Physician Attending Unavailab le Bursley, Adrian Primary Care Unavailable Darian Goyal Attending Unavailable Bursley, Adrian Primary Care Unavailable Bursley, Adrian Referring Unavailable Betsy Lockhart Attending Unavailable Bursley, Adrian Primary Care Unavailable Bursley, Adrian Referring Unavailable Bursley, Adrian Referring Unavailable Darian Goyal Attending Unavailable Bursley, Adrian Primary Care Unavailable Bursley, Adrian Referring Unavailable Darian Goyal Attending Unavailable Lovelyley, Adrian Primary Care Unavailable Darian Goyal Attending Unavailable Bursley, Adrian Primary Care Unavailable Lovelyley, Adrian Referring Unavailable Darian Goyal Referring Unavailable Darian Goyal Attending Unavailable Bursley, Adrian Primary Care Unavailable Wan nAn Attending Unavailable Bursley, Adrian Referring Unavailable Bursley, Adrian Primary Care Unavailable Wan Ann Attending Unavailable Bursley, Adrian Referring Unavailable Bursley, Adrian Primary Care Unavailable BURSLEY, CHRISTOPHER B Primary Care Unavailab CHAN Chery Attending Unavailable BETSY JALLOH Referring Unavailable BURSLEY, CHRISTOPHER B Primary Care Unavailab EDGARD Dowling Attending Unavailable LOVELYLEYMARCELAER B Primary Care Unavailab le LOVELYLEY, CHRISTOPHER B Primary Care Unavailab JOSEY Mcmahon Attending Unavailable LOVELYLEY, FARZANAOPHER B Primary Care Unavailab lavelle JALLOH AMANDA Emeka Referring Unavailable BURSLEY, CHRISTOPHER B Primary Care Unavailab BETSY Roca Attending Unavailable MARCELA LEYER B Primary Care Unavailab le LOVELYLEYMARCELAER B Referring Unavailab le BETSY JALLOH Attending Unavailable EKTA LEY Primary Care Unavailab EKTA Burton Referring Unavailab lavelle APPLELUIS MIGUELMilesANGELITO Referring Unavailable EKTA LEY Primary Care Unavailab le BETSY JALLOH Admitting Unavailable BETSY JALLOH Attending Unavailable BETSY JALLOH Referring Unavailable EKTA LEY Primary Care Unavailab BETSY Roca Attending Unavailable EKTA LEY Primary Care Unavailab EKTA Burton Referring Unavailab le BETSY JALLOH Attending Unavailable EKTA LEY Primary Care Unavailab le EKTA LEY Referring Unavailab le Allergies Allergy Classification Reported Allergen(s) Allergy Type Date of Onset Reaction(s) Facility (20 sources) traMADol; Translations: [TRAMADOL] Drug Allergy 7 [facility] Repository (20 sources) ERYTHROMYCIN BASE; Translations: [ERYTHROMYCIN BASE] Propensity to adverse reactions (disorder) 3 [facility] Repository (20 sources) Ketorolac; Translations: [KETOROLAC TROMETHAMINE] Drug Allergy 8 [facility] Work Phone: (20 sources) Naproxen; Translations: [NAPROXEN] Drug Allergy 8 [facility] Work Phone: (1 source) Ketorolac Drug Allergy 5 [facility] Repository (1 source) Naproxen Drug Allergy 5 [facility] Repository Medications Current Medications Medication Drug Class(es) Dates Sig (Normalized) Sig (Original) acetaminophen 500 mg oral tablet (1 source) Start: 12-03-2024 End: 12-07-2024 take 2 tablets by mouth every six hours as needed acetaminophen (TYLENOL EXTRA STRENGTH) 500 mg tablet Take 2 tablets by mouth every 6 hours as needed for pain for up to 40 doses. 40 tablet 12/03/2024 3:15 PM EDT 12/03/2024 12/07/2024 Discontinued (Dosage adjustment) acetaminophen 325 mg / HYDROcodone bitartrate 5 mg oral tablet (8 sources) Opioid Agonist Start: 12-07-2024 End: 12-15-2024 take 1 tablet by mouth twice daily HYDROcodone-acetami nophen (NORCO) 5-325 mg per tablet Indications: Post-operative pain Take 1 tablet by mouth two times a day for 4 days. 8 tablet 12/11/2024 12/15/2024 Active Start: 06-10-2024 End: 06-14-2024 Hydrocodone-Acetaminophen 5- 325 mg tablet Discontinued 1 {tbl} PO EVERY 4 HOURS NEEDED as needed for Pain 6 June 10, 2024 June 14, 2024 4:02pm Start: 03-16-2022 End: 03-21-2022 take 1 tablet by mouth every eight hours as needed for pain HYDROcodone-acetaminophen (NORCO) 5-325 mg per tablet Indications: Postoperative pain Take 1 tablet by mouth every 8 hours as needed for pain for up to 5 days. 10 tablet 0 03/16/2022 03/21/2022 Active Start: 03-11-2022 End: 03-16-2022 take 1 tablet by mouth every twelve hours as needed for pain HYDROcodone-acetaminophen (NORCO) 5-325 mg per tablet Indications: Postoperative pain Take 1 tablet by mouth every 12 hours as needed for pain for up to 5 days. 10 tablet 0 03/11/2022 03/16/2022 Active Comment on above: Take 1 tablet by neno th every 12 hours as needed for pain for up to 5 days. Take 1 tablet by neno th every 8 hours as needed for pain for up to 5 days. [id number] 200 actuat albuterol 0.09 mg/actuat metered dose inhaler (20 sources) beta2-Adrenergic Agonist Start: take 2 puff(s) by inhalation every four hours as needed for wheezing albuterol HFA (VENTOLIN HFA) 90 mcg/actuation inhaler Indications: Mild intermittent asthma without complication (HCC) Inhale 2 Puffs as instructed every 4 hours as needed for wheezing/shortness of breath. 18 g 1 11/05/2024 Active Start: 03-30-2024 End: 07-03-2024 take 2 puff(s) by inhalation every four hours as needed for wheezing albuterol HFA (VENTOLIN HFA) 90 mcg/actuation inhaler Indications: Mild intermittent asthma without complication Inhale 2 Puffs as instructed every 4 hours as needed for wheezing/shortness of breath. 18 g 2 07/03/2024 Active Start: 11-08-2022 End: 03-28-2024 take 2 puff(s) by inhalation every four hours as needed for wheezing albuterol HFA (VENTOLIN HFA) 90 mcg/actuation inhaler Indications: Mild intermittent asthma without complication Inhale 2 Puffs as instructed every 4 hours as needed for wheezing/shortness of breath. 18 g 2 12/19/2023 03/28/2024 Discontinued Start: 04-06-2021 End: 11-05-2022 take 2 puff(s) by inhalation every four hours as needed for wheezing albuterol HFA (VENTOLIN HFA) 90 mcg/actuation inhaler Indications: Mild intermittent asthma without complication Inhale 2 Puffs as instructed every 4 hours as needed for wheezing/shortness of breath. 18 g 5 05/14/2022 11/05/2022 Discontinued Start: 09-02-2015 Albuterol Sulf ate (Ventolin Hfa (Sp)) 1 INHALER inhaler Active 2 PUFF INHALATION EVERY 4 HOURS NEEDED September 02, 2015 5:51pm Start: 09-02-2015 Albuterol Sulf ate (Ventolin Hfa (Sp)) 1 INHALER inhaler Active 2 NMA INHALATION EVERY 4 HOURS NEEDED as needed for Sob &/Or Wheezing September 02, 2015 1:00am Start: 09-02-2015 Albuterol Sulf ate (Ventolin Hfa (Sp)) 1 INHALER inhaler Active 2 PUFF INHALATION EVERY 4 HOURS NEEDED September 02, 2015 12:00am Start: 09-02-2015 Albuterol Sulf ate (Ventolin Hfa (Sp)) 1 INHALER inhaler Active 2 PUFF INHALATION EVERY 4 HOURS NEEDED September 02, 2015 1:00am Comment on above: Inhale 2 Puffs as in structed every 4 hours as needed for wheezing/shortness of breath. amoxicillin 875 mg / clavulanate 125 mg oral tablet (3 sources) Penicillin-class Antibacterial Start: 02-11-2022 End: 02-21-2022 amoxicillin-clavul anic acid (AUGMENTIN) 875-125 mg per tablet Take 1 tablet by mouth twice daily for 10 days. FOR 10 DAYS. 20 tablet 0 02/11/2022 02/21/2022 Active Start: 01-14-2022 End: 01-24-2022 amoxicillin-clavulanic acid (AUGMENTIN) 875-125 mg per tablet Take 1 tablet by mouth twice daily for 10 days. FOR 10 DAYS. 20 tablet 0 01/14/2022 01/24/2022 Active Start: 12-24-2021 End: 01-03-2022 amoxicillin-clavulanic acid (AUGMENTIN) 875-125 mg per tablet Take 1 tablet by mouth twice daily for 10 days. FOR 10 DAYS. 20 tablet 0 12/24/2021 01/03/2022 Active Comment on above: Take 1 tablet by neno th twice daily for 10 days. FOR 10 DAYS. atorvastatin 80 mg oral tablet (20 sources) HMG-CoA Reductase Inhibitor Start: End: 024 take 1 tablet by mouth once daily at bedtime for hyperlipidemia atorvastatin (LIPITOR) 80 mg tablet Indications: Mixed hyperlipidemia Take 1 tablet by mouth daily at bedtime. For cholesterol. 90 tablet 1 12/14/2023 Active Start: 12-09-2021 End: 12-09-2021 take 1 tablet by mouth once daily at bedtime for hyperlipidemia atorvastatin (LIPITOR) 20 mg tablet Take 1 tablet by mouth daily at bedtime. For cholesterol. 90 tablet 1 12/09/2021 12/09/2021 Discontinued Comment on above: Take 1 tablet by neno th daily at bedtime. For cholesterol. cephalexin 500 mg oral capsule (7 sources) Cephalosporin Antibacterial Start: 2 take 500 mg by mouth every six hours Cephalexin Active 500 MG PO EVERY 6 HOURS December 18, 2021 8:16pm Start: 12-17-2021 End: 12-27-2021 take 1 capsule by mouth four times daily cephALEXin (KEFLEX) 500 mg capsule Indications: Abscess of breast, left Take 1 capsule by mouth four times daily for 10 days. 40 capsule 0 12/17/2021 12/27/2021 Active Comment on above: Take 1 capsule by mo [facility] four times daily for 10 days. cetirizine hydrochloride 10 mg oral tablet (20 sources) Histamine-1 Receptor Antagonist Start: 3 End: 4 take 1 tablet by mouth once daily cetirizine (ZYRTEC) 10 mg tablet Indications: History of seizures Take 1 tablet by mouth once daily. 90 tablet 3 12/14/2023 Active Start: 08-15-2017 End: 11-05-2022 take 1 tablet by mouth once daily cetirizine (ZYRTEC) 10 mg tablet Indications: History of seizures Take 1 tablet by mouth once daily. 90 tablet 3 11/27/2021 11/05/2022 Discontinued Start: 09-09-2016 take 1 capsule by mo [facility] once daily Cetirizine (Zyrtec) 10 MG capsule Active 10 mg PO DAILY September 09, 2016 1:00am Comment on above: Take [address] [facility] once daily. cyclobenzaprine hydrochloride 5 mg oral tablet (6 sources) Muscle Relaxant Start: 11-30-19 take 1 tablet by mouth three times daily as needed for muscle spasms Cyclobenzaprine 5 mg tablet Active 5 mg PO THREE TIMES A DAY as needed for muscle spasm 05 08November 29, 2024 12:00am Start: 03-07-2022 End: 06-10-2024 take 1 tablet by mouth twice daily as needed for muscle spasms Cyclobenzaprine 10 mg tablet Discontinued 10 mg PO TWICE A DAY as needed for muscle spasm March 07, 2022 12:00am June 10, 2024 1:25pm doxycycline hyclate 100 mg oral capsule (6 sources) Tetracycline-class Drug Start: 12-11-2024 End: 01-22-2025 take 1 capsule by mouth twice daily doxycycline hyclate (VIBRAMYCIN) 100 mg capsule Take 1 capsule by mouth two times a day. 84 capsule 12/11/2024 01/22/2025 Active Start: 08-09-2024 End: 08-19-2024 take 1 capsule by mouth twice daily Doxycycline Monohydrate 100 mg capsule Discontinued 100 mg PO TWICE A DAY 24 06August 09, 2024 1:00am August 18, 2024 1:00am August 19, 2024 1:08am Start: 05-21-2024 End: 05-28-2024 take 1 tablet by mouth twice daily doxycycline (VIBRA-TABS) 100 mg tablet Indications: Rhinosinusitis Take 1 tablet by mouth two times a day for 7 days. 14 tablet 05/21/2024 05/28/2024 Active fluticasone propionate 0.05 mg/actuat metered dose nasal spray (20 sources) Corticosteroid Start: 05-21-2022 Fluticasone Pr opionate 50 mcg/actuation spray,suspension Active 2 NMA INTRANASAL Q12H as needed for allergy symptoms May 21, 2022 12:00am Start: 05-21-2022 Fluticasone Pr opionate Active SPRAY INTRANASAL May 21, 2022 12:00am Start: 06-05-2020 End: 11-06-2024 take 2 spray(s) by mouth once daily fluticasone (FLONASE) 50 mcg/actuation nasal spray Indications: History of seizures Use 2 Sprays in each nostril once daily. Rinse mouth after use. 1 Each 5 11/27/2021 Active Comment on above: Use 2 Sprays in each nostril once daily. Rinse mouth after use. folic acid 1 mg oral tablet (20 sources) Start: 06-05-2020 take 4 tablets by mouth once daily folic acid 1 mg tablet Take by mouth. takes 4 tabs once a day 360 tablet 11 06/05/2020 Active Start: 09-09-2016 take 1 tablet by mouth once da marcellus Folic Acid 1 MG tablet Active 1 mg PO DAILY September 09, 2016 1:00am Comment on above: Take by mouth. takes 4 tabs once a day oxyCODONE hydrochloride 5 mg oral tablet (1 source) Opioid Agonist Start: End: take 1 tablet by mouth every eight hours as needed for pain oxyCODONE IR (ROXICODONE) 5 mg immediate release tablet Indications: Postoperative pain Take 1 tablet by mouth every 8 hours as needed for pain for up to 10 doses. 10 tablet 12/03/2024 3:15 PM EDT 12/03/2024 12/07/2024 Discontinued (Dosage adjustment) pyridoxine HCl, vitamin B6, (VITAMIN B-6 ORAL) (20 sources) take 1 tablet by mouth once daily pyridoxine HCl, vitamin B6, (VITAMIN B-6 ORAL) Take 1 tablet by mouth once daily. Active pyridoxine HCl, vitamin B6, (VITAMIN B-6 ORAL) Take by mouth. Active pyridoxine HCl, vitamin B6, (VITAMIN B-6 ORAL) Take by mouth. 0 Suspended pyridoxine HCl, vitamin B6, (VITAMIN B-6 ORAL) Take by mouth. 0 Active Comment on above: Take by mouth. sertraline 50 mg oral tablet (20 sources) Serotonin Reuptake Inhibitor Start: 09-09-2016 End: 06-11-2024 take 1 tablet by mouth once daily sertraline (ZOLOFT) 50 mg tablet Take 1 tablet by mouth once daily. 90 tablet 1 12/14/2023 Active Comment on above: Take 1 tablet by neno once daily. SUMAtriptan 50 mg oral tablet (20 sources) Serotonin-1b and Serotonin-1d Receptor Agonist Start: 12-07-2017 SUMAtriptan (IMITREX) 50 mg tablet Take 50 mg by mouth as needed. 12/07/2017 Active Comment on above: Take 50 mg by mouth as needed. vitamin b6 250 mg oral tablet (4 sources) Start: 05-21-2022 take 1 tablet by mouth once daily Pyridoxine (Vitamin B6) 250 mg tablet Active 250 mg PO DAILY May 21, 2022 12:00am Completed/Discontinued Medications Medication Drug Class(es) Dates Sig (Normalized) Sig (Original) acetaminophen 325 mg / oxyCODONE hydrochloride 5 mg oral tablet (20 sources) Opioid Agonist Start: 12-30-2021 End: 05-24-2023 take 1 tablet by mouth four times daily as needed for pain oxyCODONE-acetamin ophen (PERCOCET) 5-325 mg tablet Indications: Breast abscess Take 1 tablet by mouth four times daily as needed for pain. FOR PAIN. 8 tablet 0 12/30/2021 05/24/2023 Discontinued (Course of therapy completed) Comment on above: Take 1 tablet by neno four times daily as needed for pain. FOR PAIN. amoxicillin 875 mg oral tablet (1 source) Penicillin-class Antibacterial Start: 08-14-2024 End: 10-02-2024 take 1 tablet by mouth every twelve hours Amoxicillin 875 mg tablet Discontinued 875 mg PO Q12H 98 49 August 14, 2024 1:00am October 01, 2024 1:00am October 02, 2024 1:11am clindamycin 300 mg oral capsule (1 source) Lincosamide Antibacterial Start: 07-23-2024 End: 08-02-2024 take 1 capsule by mouth every six hours Clindamycin Hcl 300 mg capsule Discontinued 300 mg PO EVERY 6 HOURS 40 July 23, 2024 1:00am August 01, 2024 1:00am August 02, 2024 1:09am famotidine 20 mg oral tablet (20 sources) Histamine-2 Receptor Antagonist Start: 09-30-2020 End: 06-10-2024 take 1 tablet by mouth twice daily Famotidine 20 mg tablet Discontinued 20 mg PO TWICE A DAY May 21, 2022 12:00am June 10, 2024 1:25pm Comment on above: Take 1 tablet by neno th twice daily. ibuprofen 600 mg oral tablet (2 sources) Nonsteroidal Anti-inflammatory Drug Start: 06-12-2023 End: 06-14-2024 take 1 tablet by mouth every six hours as needed for pain Ibuprofen 600 mg tablet Discontinued 600 mg PO EVERY 6 HOURS NEEDED as needed for pain June 12, 2023 12:00am June 14, 2024 4:02pm levETIRAcetam 1000 mg oral tablet (20 sources) Start: 05-21-2022 End: 06-14-2024 Levetiracetam 1,000 mg tablet Discontinued 1500 mg PO TWICE A DAY May 21, 2022 10:13am June 14, 2024 4:02pm Start: 05-21-2022 take 1500 mg by mout h twice daily Levetiracetam Active 1500 MG PO TWICE A DAY May 21, 2022 10:13am Start: 09-09-2016 End: 05-21-2022 take 1 tablet by mouth twice daily Levetiracetam 1,000 MG tablet Discontinued 1000 mg PO TWICE A DAY September 09, 2016 1:00am May 21, 2022 10:14am Start: 01-07-2015 take 1.5 tablets by mouth twice daily levETIRAcetam (KEPPRA) 750 mg tablet Indications: Generalized convulsive epilepsy without mention of intractable epilepsy Take 1.5 tablets by mouth twice daily. 0 01/07/2015 Active Comment on above: Take 1.5 tablets by mouth twice daily. metroNIDAZOLE 500 mg oral tablet (1 source) Nitroimidazole Antimicrobial Start: 09-10-19 End: 09-17-19 take 1 tablet by mouth three times daily Metronidazole 500 mg tablet Discontinued 500 mg PO THREE TIMES A DAY 25 03September 10, 2024 1:00am September 16, 2024 1:00am September 17, 2024 1:10am pravastatin sodium 20 mg oral tablet (6 sources) HMG-CoA Reductase Inhibitor Start: 09-09-19 End: 05-21-20 take 1 tablet by mouth once daily Pravastatin Sodium 20 MG tablet Discontinued 20 mg PO DAILY September 09, 2016 1:00am May 21, 2022 10:13am predniSONE 10 mg oral tablet (9 sources) Start: 02-16-20 End: 11-07-19 predniSONE (DELTASONE) 10 mg tablet Take 4 tabs daily for 3 days, then 2 tabs daily for 3 days, then 1 tab daily for 3 days with food. 21 tablet 02/16/2024 11/06/2024 Discontinued (Course of therapy completed) Start: 06-28-2023 End: 06-10-2024 take 1 tablet by mouth twice daily Prednisone 20 mg tablet Discontinued 20 mg PO TWICE A DAY June 28, 2023 12:00am June 10, 2024 1:25pm raNITIdine 150 mg oral tablet (6 sources) Histamine-2 Receptor Antagonist Start: 09-09-2016 End: 05-21-2022 take 1 tablet by mouth twice daily Ranitidine Hcl (Acid Control) 150 MG tablet Discontinued 150 mg PO TWICE A DAY September 09, 2016 1:00am May 21, 2022 10:13am tiZANidine 2 mg oral tablet (3 sources) Central alpha-2 Adrenergic Agonist Start: 06-10-2024 End: 06-14-2024 take 1 tablet by mouth every eight hours as needed Tizanidine 2 mg tablet Discontinued 2 mg PO Q8H as needed for muscle spasticity June 10, 2024 2:22pm June 14, 2024 4:02pm Start: 06-12-2023 End: 06-10-2024 take 1 tablet by mouth every eight hours as needed Tizanidine 4 mg tablet Discontinued 4 mg PO Q8H as needed for muscle spasticity 17 01June 12, 2023 12:00am June 10, 2024 1:25pm Problems Active Problems Problem Classification Problem Date Documented Date Episodic/Chronic Asthma (20 sources) Mild intermittent asthma; Translations: [Mild intermittent asthma, uncomplicated] Onset: 12-02-2005 Chronic Bacterial infection; unspecified site (2 sources) Actinomycotic infection; Translations: [Actinomycosis, unspecified] Onset: 12-12-2024 12-12-2024 Episodic Developmental disorders (20 sources) Developmental academic disorder; Translations: [Other developmental disorders of scholastic skills] Onset: 03-14-2003 12-30-2003 Chronic Diabetes mellitus without complication (2 sources) Hyperglycemia; Translations: [Hyperglycemia, unspecified] Episodic Disorders of lipid metabolism (20 sources) Mixed hyperlipidemia; Translations: [Mixed hyperlipidemia] Onset: 01-07-2015 Chronic Epilepsy; convulsions (20 sources) Generalized convulsive epilepsy; Translations: [Generalized idiopathic epilepsy and epileptic syndromes, not intractable, without status epilepticus] Onset: 03-14-2003 08-31-2021 Chronic Epilepsy; convulsions (7 sources) Seizure; Translations: [Unspecified convulsions] Onset: 12-03-2024 12-03-2024 Episodic Esophageal disorders (20 sources) Gastro-esophageal reflux disease with esophagitis; Translations: [Gastroesophageal reflux disease with esophagitis without hemorrhage] Chronic Headache; including migraine (20 sources) Migraine without aura; Translations: [Migraine without aura, not intractable, without status migrainosus] Onset: 03-14-2003 08-30-2019 Chronic Headache; including migraine (1 source) Headache; Translations: [Headache] 07-06-2023 Episodic Hemorrhage during ; abruptio placenta; placenta previa (6 sources) Threatened miscarriage in first trimester; Translations: [Threatened ] 07-30-2019 Episodic Immunizations and screening for infectious disease (2 sources) Vaccination needed; Translations: [Encounter for immunization] Episodic Mood disorders (20 sources) Recurrent major depression; Translations: [Major depressive disorder, recurrent, unspecified] Onset: 03-14-2003 Chronic Neoplasms of unspecified nature or uncertain behavior (20 sources) Neoplasm of brain; Translations: [Neoplasm of unspecified behavior of brain] Onset: 07-06-2016 09-01-2021 Chronic Nonmalignant breast conditions (1 source) Periductal mastitis; Translations: [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 Nonmalignant breast conditions (20 sources) Mastodynia; Translations: [Mastodynia] Onset: 06-14-2024 Episodic Comment on above: Patient with chronic recurrent left breast abscess now 1 week status post bedside incision and drainage procedure. Final cultures from that procedure showed growth of Schaalia turicensis. This is likely telling as to why patient has had such difficulty eradicating this infection. 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 I have described this to the patient and her mother and suggested that we plan for an initial 2-month course of antibiotics. She is currently prescribed doxycycline which is considered second line therapy for pen allergic patients. She denies any issues with a history of taking penicillins so I will transition her to amoxicillin 875 mg twice daily when she has completed a course of doxycycline. I have also informed her that I would like her to begin using compresses to continue eliciting drainage and that I want to follow this area clinically to ensure that is responding to therapy. Lastly, I have requested, once again, that she consider smoking cessation as a means of helping eradicate this infection. Patient and her mother expressed understanding.Update 09/11/2024: Patient is now 1 month status post bedside incision and drainage procedure. Micro as above. Patient reports faithful administration of amoxicillin 875 mg twice daily and is due to meat pickler metronidazole. She is reminded that this is a challenging microbe to eradicate and a longer term antibiotic courses expected. On exam, I find an encouraging picture that shows no evidence of active infection. To me this is suggestive that her current treatment plan is efficacious. As previously, I had a lengthy conversation with Ms. Concepcion and her mother that I believe smoking cessation will be critical to her fully eradicating this bacteria and fully healing this wound. I suggested that with failure of treatment with the antibiotics I would be looking at offering more of a invasive debridement procedure and smoking would be inhibitory to her wound healing and potential ability to eradicate this infection. Patient seemed to internalize apprise counselor given. Open wounds of head; neck; and trunk (1 source) Open wound of left breast; Translations: [Unspecified open wound of left breast, subsequent encounter] Episodic Other injuries and conditions due to external causes (1 source) Open wound; Translations: [Other injury of unspecified body region, initial encounter] Episodic Other injuries and conditions due to external causes (4 sources) Delayed healing of wound; Translations: [Other injury of unspecified body region, subsequent encounter] 07-06-2022 Episodic Comment on above: Ms. 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 She presents today for concerns of warmth and spontaneous drainage from our prior closure. While this is suggestive of a recurrent abscess, there is no evidence of ongoing infection or even inflammation. It could be that her spontaneous drainage has already resolved what ever infection had existed. Granulomatous mastitis also remains in the differential. I recommend the patient that she continue local wound care with packing this area daily and see if we are able to experience healing by secondary intention now that there does not appear to be an infection present. She also mentions that her brother has similar issues, but is a non-smoker. On hearing this, I question whether or not the patient may have some underlying staph colonization and I therefore performed a nasal swab at today's visit. I did mention to Ms. Concepcion that we could consider complete reexcision of the area with immediate primary closure, but I would only consider this in the setting of complete smoking cessation. She says that she will work to achieve this status in the next week and a half.Update 07/10/2024: Patient is seen for the first time after 2 years of being lost to follow-up with complaints of persistent draining wound of her left breast. It appears that the area never completely healed and has cyclically spontaneously drained for the last 2 years. On exam, there is minimal evidence of infection or even drainage. Patient has no known immunodeficiency or cause for delayed wound healing apart from established smoking history. I did discuss with her the need to consider tobacco cessation to try to remedy this problem. I also shared with her the differential for this problem including a chronic infection, a foreign body reaction, or a case of idiopathic granulomatous mastitis. I do not believe this represents a foreign body reaction going back to 2021 and I could examine the base of patient's wound and did not detect any foreign bodies at that time. Additionally, this started as a incision and drainage wound and it would be atypical to have included any suture material at that time of the procedure. Thus, I have recommended checking the wound for any bacterial growth (this was previously positive in 2021). I have recommended that if a bacterial culture is obtained that we treat this and see if we are able to bring about resolution of the wound. If no growth or corynebacterium is isolated then I would like to explore the possibility that this represents granulomatous mastitis and would advocate for doing a core needle biopsy of the area. Unfortunately, today I was unable to express much discharge despite a persistent effort and patient was unwilling to proceed with any further exploration. Thus we resolved to try to get a culture the next time this flares. Since this is likely to be a short lead up window I have suggested that this be arranged on a nurse visit and a culture be obtained. Lastly, I did discuss with patient that a finding of granulomatous mastitis would likely require referral to an outside provider that may be able to consider application of steroids versus other immune modulation. Other injuries and conditions due to external causes (10 sources) Other injury of unspecified body region, subsequent encounter; Translations: [Open wound(s) (multiple) of unspecified site(s), complicated] Episodic Other lower respiratory disease (1 source) Cough; Translations: [Acute cough] 11-20-2024 Episodic Other nervous system disorders (20 sources) Complex regional pain syndrome of upper limb; Translations: [Complex regional pain syndrome I of unspecified upper limb] Onset: 01-18-2003 12-30-2003 Chronic Other nervous system disorders (4 sources) Complex regional pain syndrome; Translations: [Complex regional pain syndrome I, unspecified] 05-21-2022 Chronic Other nervous system disorders (20 sources) Chronic pain; Translations: [Other chronic pain] Onset: 10-17-2012 Resolved: 04-09-2015 04-09-2015 Chronic Other nervous system disorders (5 sources) Postoperative pain ; Translations: [Other acute postprocedural pain] Episodic Other nervous system disorders (2 sources) Other acute postprocedural pain; Translations: [Post-operative pain] Onset: 12-03-2024 Episodic Other screening for suspected conditions (not mental disorders or infectious disease) (4 sources) Patient encounter status; Translations: [Encounter for screening mammogram for malignant neoplasm of breast] Episodic Other skin disorders (1 source) Onychomadesis; Translations: [Other nail disorders] 04-05-2024 Episodic Other upper respiratory disease (20 sources) Seasonal allergy; Translations: [Other seasonal allergic rhinitis] Onset: 11-27-2021 11-27-2021 Chronic Other upper respiratory disease (1 source) Respiratory tract congestion; Translations: [Nasal congestion] 11-20-2024 Episodic Other upper respiratory disease (1 source) Nasal congestion; Translations: [Head congestion] Onset: 11-20-2024 Episodic Other upper respiratory infections (2 sources) Sinusitis; Translations: [Chronic sinusitis, unspecified] 02-16-2024 Chronic Residual codes; unclassified (1 source) Tobacco use and exposure - finding; Translations: [Tobacco use] Episodic Residual codes; unclassified (15 sources) At high risk for breast cancer; Translations: [Other specified personal risk factors, not elsewhere classified] Onset: 11-19-2024 11-19-2024 Episodic Residual codes; unclassified (1 source) Procedure and treatment not carried out due to patient leaving prior to being seen by health care provider; Translations: [Procedure and treatment not carried out due to patient leaving prior to being seen by health care provider] Onset: 10-09-2024 Episodic Residual codes; unclassified (1 source) Other specified personal risk factors, not elsewhere classified; Translations: [At high risk for breast cancer] Onset: 11-19-2024 Episodic Substance-related disorders (20 sources) Tobacco user; Translations: [Nicotine dependence, unspecified, uncomplicated] Onset: 11-07-2008 11-07-2008 Chronic Thyroid disorders (20 sources) Goiter; Translations: [Nontoxic goiter, unspecified] Onset: 12-17-2009 Chronic Unclassified (1 source) Unknown / UNK(Unknown) Onset: 06-14-2017 Unclassified (1 source) Low back pain, unspecified; Translations: [Low back pain, unspecified] Onset: 12-05-2024 Unclassified (1 source) Acute cough; Translations: [Acute cough] Onset: 11-20-2024 Viral infection (6 sources) Genital herpes simplex; Translations: [Herpesviral infection of urogenital system, unspecified] 03-28-2021 Chronic Past or Other Problems Problem Classification Problem Date Documented Date Episodic/Chronic Administrative/socia l admission (1 source) Encounter for pre-employment examination; Translations: [Encounter for pre-employment examination] Onset: 03-09-2024 Episodic Cancer of cervix (20 sources) Low grade squamous intraepithelial lesion on cervical Papanicolaou smear; Translations: [Low grade squamous intraepithelial lesion on cytologic smear of cervix (LGSIL)] Onset: 08-14-2008 Resolved: 04-09-2015 08-14-2008 Episodic Other and unspecified benign neoplasm (20 sources) Benign neoplasm of skin of trunk; Translations: [Other benign neoplasm of skin of trunk] Onset: 02-07-2013 Resolved: 04-09-2015 04-09-2015 Episodic Other and unspecified benign neoplasm (20 sources) Hemangioma; Translations: [Hemangioma unspecified site] Onset: 02-15-2013 Resolved: 04-09-2015 04-09-2015 Episodic Other complications of (20 sources) Previous operation to cervix affecting ; Translations: [Maternal care for other abnormalities of cervix, unspecified trimester] Onset: 01-11-2019 01-11-2019 Episodic Other complications of (20 sources) Supervision of other high risk pregnancies, unspecified trimester; Translations: [Supervision of other high-risk ] Onset: 05-25-2011 Resolved: 12-20-2012 12-20-2012 Episodic Other complications of (20 sources) Maternal tobacco use; Translations: [Smoking (tobacco) complicating , unspecified trimester] Onset: 01-11-2019 Resolved: 11-27-2021 11-27-2021 Episodic Other congenital anomalies (20 sources) Porokeratosis; Translations: [Other specified congenital malformations of skin] Onset: 06-04-2011 Resolved: 04-09-2015 04-09-2015 Chronic Other connective tissue disease (20 sources) Neurodisability; Translations: [Other symptoms and signs involving the nervous system] Onset: 01-11-2019 01-11-2019 Episodic Other connective tissue disease (20 sources) Pain in left foot; Translations: [Pain in left foot] Onset: 10-17-2012 Resolved: 04-09-2015 04-09-2015 Episodic Other lower respiratory disease (20 sources) H/O: asthma; Translations: [Personal history of other diseases of the respiratory system] Onset: 01-11-2019 Resolved: 11-27-2021 03-28-2021 Episodic Other nervous system disorders (20 sources) Abnormal gait; Translations: [Unspecified abnormalities of gait and mobility] Onset: 11-05-2011 11-05-2011 Episodic Other nutritional; endocrine; and metabolic disorders (20 sources) Obesity; Translations: [Obesity, unspecified] Onset: 04-20-2007 Resolved: 04-09-2015 04-09-2015 Chronic Other and delivery including normal (20 sources) Normal in primigravida; Translations: [Encounter for supervision of normal first , unspecified trimester] Onset: 05-25-2011 Resolved: 05-25-2011 05-25-2011 Episodic Other skin disorders (20 sources) Skin lesion; Translations: [Disorder of the skin and subcutaneous tissue, unspecified] Onset: 01-19-2012 Resolved: 04-09-2015 04-09-2015 Episodic Other skin disorders (1 source) Personal history of diseases of the skin and subcutaneous tissue; Translations: [Personal history of diseases of the skin and subcutaneous tissue] Onset: 06-14-2024 Episodic Residual codes; unclassified (20 sources) History of clinical finding in subject; Translations: [Personal history of other specified conditions] Onset: 01-11-2019 Episodic Residual codes; unclassified (18 sources) Personal history of other specified conditions; Translations: [Personal history of other specified diseases] Onset: 01-11-2019 01-11-2019 Episodic Screening and history of mental health and substance abuse codes (20 sources) H/O: depression; Translations: [Personal history of other mental and behavioral disorders] Onset: 01-11-2019 Resolved: 11-27-2021 11-27-2021 Episodic Sexually transmitted infections (not HIV or hepatitis) (20 sources) Human papillomavirus deoxyribonucleic acid test positive, high risk on cervical specimen; Translations: [Cervical high risk human papillomavirus (HPV) DNA test positive] Onset: 08-14-2008 Resolved: 04-09-2015 04-09-2015 Episodic Spondylosis; intervertebral disc disorders; other back problems (20 sources) Backache; Translations: [Dorsalgia, unspecified] Onset: 05-30-2018 Resolved: 11-27-2021 11-10-2021 Episodic Sprains and strains (20 sources) Lower back injury; Translations: [Strain of muscle, fascia and tendon of lower back, initial encounter] Onset: 05-17-2012 Resolved: 04-09-2015 03-07-2022 Episodic Substance-related disorders (20 sources) Continuous opioid dependence; Translations: [Opioid use, unspecified, uncomplicated] Onset: 10-17-2012 Resolved: 04-09-2015 04-09-2015 Episodic Superficial injury; contusion (20 sources) Contusion of scapular region; Translations: [Contusion of unspecified shoulder, initial encounter] Onset: 02-18-2015 02-18-2015 Episodic Unclassified (1 source) c71.9 Onset: 06-14-2017 Results Test Name Value Interpretation Reference Range Facility Sav 01-14-2025 CNOV Office Visit ([facility]) GRISELDA CONCEPCION ([id number]) 1980 F CHT Date Time Provider Department 01/14/25 10:30 AM BETSY JALLOH AGGBR During your visit today, we recorded the following information about you: Pulse Blood pressure 82/minute 120/73 Jennifer Rahman LPN 01/14/2025 10:25 AM Signed Patient here for one month follow up .Patient stated she is some drainage not a lot .Pain is intermittent. NITZA Cole Amanda M, MD 01/14/2025 10:25 AM Signed Ms Concepcion is a 44 year old female here today for wound check. She is status post excision of left breast periareolar fistula on 12/03/24. Pathology returned inflammation. Cultures growing actinomyces. Left breast incision intact. No current drainage. Erythema resolved. On doxy. Saw ID who agreed with [facility] doxy for now. Discussed importance of smoking cessation for resolution of infection. Lifetime risk 22.6%, Breast density BIRADS B. Due for mammograms in 6 months. No tamoxifen given current smoking. Follow up with [facility]. Betsy Jalloh MD Referring Provider: EKTA LEY [[id number]] Allergies As of Date: 01/14/2025 Noted Allergy Reaction ERYTHROMYCIN BASE 01/16/2003 8 - GI Upset KETOROLAC TROMETHAMINE 11/12/2017 2 - Rash NAPROXEN 11/12/2017 2 - Rash TRAMADOL 02/15/2017 8 - GI Upset Date Reviewed: 01/14/2025 Reviewed by: Betsy Jalloh MD - Fully Assessed Reason for Visit: Follow Up [171] Primary Visit Diagnosis:Breast abscess [N61.1] Other Visit Diagnosis:Mass of upper inner quadrant of left breast [N63.22] Order(s):SARAH Shaw LUIS ALFREDO BILATERAL [[id number]] Order #: [id number] FUTURE Prescriptions as of 01/14/2025 - doxycycline hyclate (VIBRAMYCIN) 100 mg capsule Take 1 capsule by mouth two times a day. - famotidine (PEPCID) 20 mg tablet Take 1 tablet by mouth two times a day. - albuterol HFA (VENTOLIN HFA) 90 mcg/actuation inhaler Inhale 2 Puffs as instructed every 4 hours as needed for wheezing/shortness of breath. - sertraline (ZOLOFT) 50 mg tablet Take 1 tablet by mouth once daily. - atorvastatin (LIPITOR) 80 mg tablet Take 1 tablet by mouth daily at bedtime. For cholesterol. - cetirizine (ZYRTEC) 10 mg tablet Take 1 tablet by mouth once daily. - fluticasone (FLONASE) 50 mcg/actuation nasal spray Use 2 Sprays in each nostril once daily. Rinse mouth after use. - folic acid 1 mg tablet Take by mouth. takes 4 tabs once a day - pyridoxine HCl, vitamin B6, (VITAMIN B-6 ORAL) Take 1 tablet by mouth once daily. - SUMAtriptan (IMITREX) 50 mg tablet Take 50 mg by mouth as needed. - levETIRAcetam (KEPPRA) 750 mg tablet Take 1.5 tablets by mouth twice daily. Problem List As Of Date 01/14/2025 Noted Resolved REFLEX SYMPATH DYSTRPHY UPPER LIMB [G90.519] 01/18/2003 Migraine without aura [G43.009] 03/14/2003 Generalized convulsive epilepsy (HCC) [G40.309] 03/14/2003 OTHER LEARNING DIFFICULTY [F81.89] 03/14/2003 Depression [F32.A] 03/14/2003 Mild intermittent asthma without complication [*12/02/2005 Obesity, unspecified [E66.9] 04/20/2007 04/09/2015 PAP SMEAR CERVIX W LGSIL [R87.612] 08/14/2008 Papanicolaou smear of cervix with atypical squa*08/14/2008 04/09/2015 Cervical high risk human papillomavirus (HPV) D*08/14/2008 04/09/2015 TOBACCO USE DISORDER [F17.200] 11/07/2008 Goiter [E04.9] 12/17/2009 Supervision of normal first [Z34.00] 05/25/2011 05/25/2011 Supervision of other high-risk [O09.8*05/25/2011 12/20/2012 Porokeratosis [Q82.8] 06/04/2011 04/09/2015 Abnormality of gait [R26.9] 11/05/2011 Skin lesion [L98.9] 01/19/2012 04/09/2015 Lumbar strain [S39.012A] 05/17/2012 04/09/2015 Chronic, continuous use of opioids [F11.90] 10/17/2012 04/09/2015 Chronic pain [G89.29] 10/17/2012 04/09/2015 Left foot pain [M79.672] 10/17/2012 04/09/2015 Benign neoplasm of skin of trunk, except scrotu*02/07/2013 04/09/2015 Hemangioma [D18.00] 02/15/2013 04/09/2015 Hyperlipidemia [E78.5] 01/07/2015 Contusion of scapular region [S40.019A] 02/18/2015 Neoplasm, brain (HCC) [D49.6] 07/06/2016 GERD (gastroesophageal reflux disease) [K21.9] Acute bilateral low back pain without sciatica *05/30/2018 11/27/2021 History of seizures [Z87.898] 01/11/2019 Disability due to neurological disorder [R29.81*01/11/2019 History of asthma [Z87.09] 01/11/2019 11/27/2021 Tobacco use in , antepartum [O99.330] 01/11/2019 11/27/2021 History of depression [Z86.59] 01/11/2019 11/27/2021 History of loop electrosurgical excision proced*01/11/2019 Patient request for diagnostic testing [Z01.89] 01/11/2019 11/27/2021 Asthma [J45.909] Seasonal allergies [J30.2] 11/27/2021 Mass of upper inner quadrant of left breast [N6*11/19/2024 At high risk for breast cancer [Z91.89] 11/19/2024 Preop examination [Z01.818] 12/03/2024 Seizures (HCC) [R56.9] 12/03/2024 Breast abscess [N61.1] (more content not included)... Normal [facility] CNPNon 12-20-2024 CNPN Telephone ([facility]) GRISELDA CONCEPCION ([id number]) 1980 F CHT Date Time Provider Department 12/20/24 BETSY JALLOH [facility] [employer] [facility] During your visit today, we recorded the following information about you: Gerardo Farrar RN 12/20/2024 3:12 PM Signed Pt states her current post op recommendations were to not return to work for two more weeks. She states her redness and drainage have resolved and she would like to return next week. I told patient she would probably need to be seen before a provider would feel comfortable releasing her back to work. Please advise. Gerardo Farrar RN Allergies As of Date: 12/20/2024 Noted Allergy Reaction ERYTHROMYCIN BASE 01/16/2003 8 - GI Upset KETOROLAC TROMETHAMINE 11/12/2017 2 - Rash NAPROXEN 11/12/2017 2 - Rash TRAMADOL 02/15/2017 8 - GI Upset Date Reviewed: 12/12/2024 Reviewed by: Lina Ghosh MA - Fully Assessed Reason for Visit: Patient Question [4937] Prescriptions as of 12/20/2024 - doxycycline hyclate (VIBRAMYCIN) 100 mg capsule Take 1 capsule by mouth two times a day. - famotidine (PEPCID) 20 mg tablet Take 1 tablet by mouth two times a day. - albuterol HFA (VENTOLIN HFA) 90 mcg/actuation inhaler Inhale 2 Puffs as instructed every 4 hours as needed for wheezing/shortness of breath. - sertraline (ZOLOFT) 50 mg tablet Take 1 tablet by mouth once daily. - atorvastatin (LIPITOR) 80 mg tablet Take 1 tablet by mouth daily at bedtime. For cholesterol. - cetirizine (ZYRTEC) 10 mg tablet Take 1 tablet by mouth once daily. - fluticasone (FLONASE) 50 mcg/actuation nasal spray Use 2 Sprays in each nostril once daily. Rinse mouth after use. - folic acid 1 mg tablet Take by mouth. takes 4 tabs once a day - pyridoxine HCl, vitamin B6, (VITAMIN B-6 ORAL) Take 1 tablet by mouth once daily. - SUMAtriptan (IMITREX) 50 mg tablet Take 50 mg by mouth as needed. - levETIRAcetam (KEPPRA) 750 mg tablet Take 1.5 tablets by mouth twice daily. Problem List As Of Date 12/20/2024 Noted Resolved REFLEX SYMPATH DYSTRPHY UPPER LIMB [G90.519] 01/18/2003 Migraine without aura [G43.009] 03/14/2003 Generalized convulsive epilepsy (HCC) [G40.309] 03/14/2003 OTHER LEARNING DIFFICULTY [F81.89] 03/14/2003 Depression [F32.A] 03/14/2003 Mild intermittent asthma without complication [*12/02/2005 Obesity, unspecified [E66.9] 04/20/2007 04/09/2015 PAP SMEAR CERVIX W LGSIL [R87.612] 08/14/2008 Papanicolaou smear of cervix with atypical squa*08/14/2008 04/09/2015 Cervical high risk human papillomavirus (HPV) D*08/14/2008 04/09/2015 TOBACCO USE DISORDER [F17.200] 11/07/2008 Goiter [E04.9] 12/17/2009 Supervision of normal first [Z34.00] 05/25/2011 05/25/2011 Supervision of other high-risk [O09.8*05/25/2011 12/20/2012 Porokeratosis [Q82.8] 06/04/2011 04/09/2015 Abnormality of gait [R26.9] 11/05/2011 Skin lesion [L98.9] 01/19/2012 04/09/2015 Lumbar strain [S39.012A] 05/17/2012 04/09/2015 Chronic, continuous use of opioids [F11.90] 10/17/2012 04/09/2015 Chronic pain [G89.29] 10/17/2012 04/09/2015 Left foot pain [M79.672] 10/17/2012 04/09/2015 Benign neoplasm of skin of trunk, except scrotu*02/07/2013 04/09/2015 Hemangioma [D18.00] 02/15/2013 04/09/2015 Hyperlipidemia [E78.5] 01/07/2015 Contusion of scapular region [S40.019A] 02/18/2015 Neoplasm, brain (HCC) [D49.6] 07/06/2016 GERD (gastroesophageal reflux disease) [K21.9] Acute bilateral low back pain without sciatica *05/30/2018 11/27/2021 History of seizures [Z87.898] 01/11/2019 Disability due to neurological disorder [R29.81*01/11/2019 History of asthma [Z87.09] 01/11/2019 11/27/2021 Tobacco use in , antepartum [O99.330] 01/11/2019 11/27/2021 History of depression [Z86.59] 01/11/2019 11/27/2021 History of loop electrosurgical excision proced*01/11/2019 Patient request for diagnostic testing [Z01.89] 01/11/2019 11/27/2021 Asthma [J45.909] Seasonal allergies [J30.2] 11/27/2021 Mass of upper inner quadrant of left breast [N6*11/19/2024 At high risk for breast cancer [Z91.89] 11/19/2024 Preop examination [Z01.818] 12/03/2024 Seizures (HCC) [R56.9] 12/03/2024 Breast abscess [N61.1] 12/03/2024 Smoker [F17.200] 12/03/2024 Encounter Status:Closed by GERARDO FARRAR on 12/20/24 Normal [facility] C-REACTIVE PROTEINon 025 CRP [Mass/Vol] 0.9 mg/dL High NINF - 0.9 mg/dL [facility] CBC W Auto Differential pane l (Bld)on 12-12-2024 Basophils (Bld) [#/Vol] 0.05 10*3/uL [facility] Basophils/100 WBC (Bld) 0.5 % [facility] Differential cell count method Nom (Bld) Auto [facility] Eosinophils (Bld) [#/Vol] 0.23 10*3/uL [facility] Eosinophils/100 WBC (Bld) 2.3 % [facility] Erythrocyte distribution width (RBC) [Ratio] 12.2 % 11.5 - 15.0 % [facility] Hematocrit (Bld) [Volume fraction] 46.6 % High 36.0 - 46.0 % [facility] Hemoglobin (Bld) [Mass/Vol] 15.5 g/dL 11.5 - 15.5 g/dL [facility] Immature granulocytes (Bld) [#/Vol] 0.08 10*3/uL [facility] Immature granulocytes/100 WBC (Bld) 0.8 % [facility] Interpretation and review of laboratory results Abnormal [facility] Lymphocytes (Bld) [#/Vol] 2.69 10*3/uL [facility] Lymphocytes/100 WBC (Bld) 26.7 % [facility] MCH (RBC) [Entitic mass] 31.1 pg 26.0 - 34.0 pg [facility] MCHC (RBC) [Mass/Vol] 33.3 g/dL 30.5 - 36.0 g/dL [facility] MCV (RBC) [Entitic vol] 93.4 fL 80.0 - 100.0 fL [facility] Monocytes (Bld) [#/Vol] 0.74 10*3/uL [facility] Monocytes/100 WBC (Bld) 7.4 % [facility] Neutrophils (Bld) [#/Vol] 6.27 10*3/uL [facility] Neutrophils/100 WBC (Bld) 62.3 % [facility] Nucleated RBC (Bld) [#/Vol] [facility] Nucleated RBC/100 WBC (Bld) [Ratio] 0 % /100 WBC [facility] Platelet mean volume (Bld) [Entitic vol] 8.6 fL Low 9.0 - 12.7 fL [facility] Platelets (Bld) [#/Vol] 295 10*3/uL [facility] RBC (Bld) [#/Vol] 4.99 10*6/uL 3.90 - 5.2 0 m/uL [facility] WBC (Bld) [#/Vol] 10.06 10*3/uL [facility] Basophils (Bld) [#/Vol] 0.05 10*3/uL Normal <0.11 [facility] Comment on above: Order Comment: Speci men Type: BLOOD SPECIMEN Ordering Facility: [facility] Address: [address] [place] [address] Performed By: #### 5 7021-8 #### [facility] CLIA [id number] [address] [place] Basophils/100 WBC (Bld) 0.5 % Normal [facility] Comment on above: Order Comment: Speci men Type: BLOOD SPECIMEN Ordering Facility: [facility] Address: [address] [place] [address] Performed By: #### 5 7021-8 #### [facility] CLIA [id number] [address] [place] Differential cell count method Nom (Bld) Auto Normal [facility] Comment on above: Order Comment: Speci men Type: BLOOD SPECIMEN Ordering Facility: [facility] Address: [address] [place] [address] Performed By: #### 5 7021-8 #### [facility] CLIA [id number] [address] [place] Eosinophils (Bld) [#/Vol] 0.23 10*3/uL Normal <0.46 [facility] Comment on above: Order Comment: Speci men Type: BLOOD SPECIMEN Ordering Facility: [facility] Address: [address] [place] [address] Performed By: #### 5 7021-8 #### [facility] CLIA [id number] [address] Eosinophils/100 WBC (Bld) 2.3 % Normal [facility] Comment on above: Order Comment: Speci men Type: BLOOD SPECIMEN Ordering Facility: [facility] Address: [address] [place] [address] Performed By: #### 5 7021-8 #### [facility] CLIA [id number] [address] Erythrocyte distribution width (RBC) [Ratio] 12.2 % Normal 11.5-15.0 [facility] Comment on above: Order Comment: Speci men Type: BLOOD SPECIMEN Ordering Facility: [facility] Address: [address] [place] [address] Performed By: #### 5 7021-8 #### [facility] CLIA [id number] [address] [place] Hematocrit (Bld) [Volume fraction] 46.6 % High 36.0-46.0 [facility] Comment on above: Order Comment: Speci men Type: BLOOD SPECIMEN Ordering Facility: [facility] Address: [address] [place] [address] Performed By: #### 5 7021-8 #### [facility] CLIA [id number] [address] [place] Hemoglobin (Bld) [Mass/Vol] 15.5 g/dL Normal 11.5-15.5 [facility] Comment on above: Order Comment: Speci men Type: BLOOD SPECIMEN Ordering Facility: [facility] Address: [address] [place] [address] Performed By: #### 5 7021-8 #### [facility] CLIA [id number] [address] [place] Immature granulocytes (Bld) [#/Vol] 0.08 10*3/uL Normal <0.10 [facility] Comment on above: Order Comment: Speci men Type: BLOOD SPECIMEN Ordering Facility: [facility] Address: [address] [place] [address] Performed By: #### 5 7021-8 #### [facility] CLIA [id number] [address] [place] Immature granulocytes/100 WBC (Bld) 0.8 % Normal [facility] Comment on above: Order Comment: Speci men Type: BLOOD SPECIMEN Ordering Facility: [facility] Address: [address] [place] [address] Performed By: #### 5 7021-8 #### [facility] CLIA [id number] [address] Lymphocytes (Bld) [#/Vol] 2.69 10*3/uL Normal 1.00-4.00 [facility] Comment on above: Order Comment: Speci men Type: BLOOD SPECIMEN Ordering Facility: [facility] Address: [address] [place] [address] Performed By: #### 5 7021-8 #### [facility] CLIA [id number] [address] Lymphocytes/100 WBC (Bld) 26.7 % Normal [facility] Comment on above: Order Comment: Speci men Type: BLOOD SPECIMEN Ordering Facility: [facility] Address: [address] [place] [address] Performed By: #### 5 7021-8 #### [facility] CLIA [id number] [address] MCH (RBC) [Entitic mass] 31.1 pg Normal 26.0-34.0 [facility] Comment on above: Order Comment: Speci men Type: BLOOD SPECIMEN Ordering Facility: [facility] Address: [address] [place] [address] Performed By: #### 5 7021-8 #### [facility] CLIA [id number] [address] MCHC (RBC) [Mass/Vol] 33.3 g/dL Normal 30.5-36.0 [facility] Comment on above: Order Comment: Speci men Type: BLOOD SPECIMEN Ordering Facility: [facility] Address: [address] [place] [address] Performed By: #### 5 7021-8 #### [facility] CLIA [id number] [address] MCV (RBC) [Entitic vol] 93.4 fL Normal 80.0-100.0 [facility] Comment on above: Order Comment: Speci men Type: BLOOD SPECIMEN Ordering Facility: [facility] Address: [address] [place] [address] Performed By: #### 5 7021-8 #### [facility] CLIA [id number] [address] [place] Monocytes (Bld) [#/Vol] 0.74 10*3/uL Normal <0.87 [facility] Comment on above: Order Comment: Speci men Type: BLOOD SPECIMEN Ordering Facility: [facility] Address: [address] [place] [address] Performed By: #### 5 7021-8 #### [facility] CLIA [id number] [address] Monocytes/100 WBC (Bld) 7.4 % Normal [facility] Comment on above: Order Comment: Speci men Type: BLOOD SPECIMEN Ordering Facility: [facility] Address: [address] [place] [address] Performed By: #### 5 7021-8 #### [facility] CLIA [id number] [address] Neutrophils (Bld) [#/Vol] 6.27 10*3/uL Normal 1.45-7.50 [facility] Comment on above: Order Comment: Speci men Type: BLOOD SPECIMEN Ordering Facility: [facility] Address: [address] [place] [address] Performed By: #### 5 7021-8 #### [facility] CLIA [id number] [address] [place] Neutrophils/100 WBC (Bld) 62.3 % Normal [facility] Comment on above: Order Comment: Speci men Type: BLOOD SPECIMEN Ordering Facility: [facility] Address: [address] [place] [address] Performed By: #### 5 7021-8 #### [facility] CLIA [id number] [address] [place] Nucleated RBC (Bld) [#/Vol] 10*3/uL Normal <0.01 [facility] Comment on above: Order Comment: Speci men Type: BLOOD SPECIMEN Ordering Facility: [facility] Address: [address] [place] [address] Performed By: #### 5 7021-8 #### [facility] CLIA [id number] [address] [place] Nucleated RBC/100 WBC (Bld) [Ratio] 0.0 /100 WBC Normal [facility] Comment on above: Order Comment: Speci men Type: BLOOD SPECIMEN Ordering Facility: [facility] Address: [address] [place] [address] Performed By: #### 5 7021-8 #### [facility] CLIA [id number] [address] [place] Platelet mean volume (Bld) [Entitic vol] 8.6 fL Low 9.0-12.7 [facility] Comment on above: Order Comment: Speci men Type: BLOOD SPECIMEN Ordering Facility: [facility] Address: [address] [place] [address] Performed By: #### 5 7021-8 #### [facility] CLIA [id number] [address] [place] Platelets (Bld) [#/Vol] 295 10*3/uL Normal 150-400 [facility] Comment on above: Order Comment: Speci men Type: BLOOD SPECIMEN Ordering Facility: [facility] Address: [address] [place] [address] Performed By: #### 5 7021-8 #### [facility] CLIA [id number] [address] [place] RBC (Bld) [#/Vol] 4.99 10*6/uL Normal 3.90-5.20 [facility] Comment on above: Order Comment: Speci men Type: BLOOD SPECIMEN Ordering Facility: [facility] Address: [facility] [place] [address] Performed By: #### 5 7021-8 #### [facility] CLIA [id number] [address] [place] [address] [place] WBC (Bld) [#/Vol] 10.06 10*3/uL Normal 3.70-11.00 [facility] Comment on above: Order Comment: Speci men Type: BLOOD SPECIMEN Ordering Facility: [facility] Address: [facility] [place] [address] Performed By: #### 5 7021-8 #### [facility] CLIA [id number] [address] [place] [address] [facility] [place] CNOVon 12-12-2024 CNOV Office Visit (INFDAK ) GRISELDA CONCEPCION ([id number]) 1980 F CHT Date Time Provider Department 12/12/24 9:00 AM CHAN APPLE IN[facility] During your visit today, we recorded the following information about you: Temperature Pulse Respiration Blood pressure 97.8 degrees 78/minute 16/minute 132/78 Weight Height 69.6 kg 1.74 m Chan Apple MD 12/12/2024 11:54 AM Signed SERVICE DATE: 12/12/2024 SERVICE TIME: 8:50 AM We were asked to evaluate Ms. Griselda Concepcion, a 44 year old yo female by Dr. Jalloh for Breast abscess. Our findings and recommendations will be communicated through the shared medical record. 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 We discussed the available antibiotic options for treating Actinomycosis. We considered the possibility of using a PICC line for IV antibiotics but decided to hold off due to a skin rash on the upper extremities. As her mother has reported, the patient will see a investigation clerk for evaluation soon. Regarding amoxicillin, the patient had difficulty tolerating it, primarily due to stomach upset and concerns about breakthrough seizures. Since she had already received a 6-week supply of Doxycycline, which was prescribed yesterday and is effective against Actinomyces, we decided she would continue with Doxycycline monotherapy for now. We will check her CBC, CMP, and CRP for baseline measurements. She is instructed to call me next week with updates. ID Clinic f/u after 2-3 wks. ===== SUBJECTIVE: Griselda Concepcion is a 44-year-old female who is here today for treatment of a chronic left breast infection. Her past medical history is significant for epilepsy (both grand mal and petit mal), depression, migraines, Botox treatments, and a history of chronic left breast abscess. In December 2021, she was diagnosed with left breast cellulitis and an abscess. Initially, she underwent an ultrasound-guided aspiration of the abscess, from which only a small amount of pus was obtained. The culture revealed rare Actinomyces turicensis. She was treated with cephalexin and clindamycin. Subsequently, she had a surgical incision and drainage of the residual abscess performed by Dr. Jacob Weinstein on December 30, 2021. Since that time, she has undergone multiple needle aspirations and several short courses of oral antibiotics, including Augmentin. Despite this treatment, the left subareolar breast swelling has persisted, and intermittent pus continues to drain from the sinus tract. Additionally, the swelling remains painful. On August 06, 2024, she underwent a repeat incision and drainage of her left breast abscess due to increased soreness and warmth at the site, as noted by [facility]. The culture revealed the presence of Actinomyces species, Clostridium group, and Staphylococcus hominis. She was prescribed doxycycline for 10 days, followed by amoxicillin 875 mg twice daily for 7 weeks. However, she was unable to take either of these antibiotics due to stomach upset and concerns about breakthrough seizures. 11/27/2024: Dr. Jalloh examined the patient, and a new ultrasound revealed an irregularly shaped fluid collection with significant peripheral vascularity. There was also a clear skin tract measuring 1.5 x 0.6 x 0.9 cm. 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 The tissue culture obtained during surgery grew Actinomyces turicensis. The surgical pathology report of the excised fistula indicated skin with patchy epidermal acute inflammation and abundant dermal chronic inflammation. On 12/11, the patient was prescribed a course of doxycycline at a dosage of 100 mg twice daily for six weeks. Today, the patient reports persistent swelling and pain at the surgical wound site. The wound continues to drain serosanguinous fluid intermittently. However, the redness of surrounding skin has shown overall improvement. The patient denies experiencing fever or chills and has been tolerating doxycycline well since yesterday, with no reported stomach upset, abdominal pain, vomiting, or diarrhea. ROS significant for unintentional weight loss, intermittent headache, and nonpruritic skin lesions over her extremities. Smokes cigarettes. Denied using alcohol. Has 2 pet dogs. Used to have cats. PAST MEDICAL HISTORY Diagnosis Date Abnormal glandular Papanicolaou smear of cervix 02/18/2009 Abn. Pap smear (cervix), f/u with women's health Asthma (HCC) Brain lesion Dr. Moya Breast abscess 12/2021 Left Breast Class 1 (more content not included)... Normal [facility] CRP SerPl-mCncon 12-12-2024 CRP [Mass/Vol] 0.9 mg/dL High <0.9 [facility] Comment on above: Order Comment: Speci men Type: BLOOD SPECIMEN Ordering Facility: [facility] Address: [address] [place] [address] Performed By: #### 2 4323-8, 1988-01 #### [facility] CLIA [id number] 1 [place] [address] [place] Comprehensive metabolic 2000 panelon 12-12-2024 Albumin [Mass/Vol] 3.7 g/dL Low 3.9 - 4.9 g/dL [facility] ALP [Catalytic activity/Vol] 78 U/L 34 - 123 U/L [facility] ALT With P-5'-P [Catalytic activity/Vol] U/L Low 7 - 38 U/L [facility] Anion gap [Moles/Vol] 11 mmol/L 8 - 15 mmol/L [facility] AST With P-5'-P [Catalytic activity/Vol] 10 U/L Low 13 - 35 U/L [facility] Bilirubin [Mass/Vol] 0.2 mg/dL 0.2 - 1.3 mg/dL [facility] Calcium [Mass/Vol] 9.8 mg/dL 8.5 - 10. 2 mg/dL [facility] Chloride [Moles/Vol] 101 mmol/L 98 - 107 mmol/L [facility] CO2 [Moles/Vol] 26 mmol/L 22 - 30 mmol/L [facility] Creatinine [Mass/Vol] 0.66 mg/dL 0.58 - 0.96 mg/dL [facility] GFR/1.73 sq M.predicted among non-blacks MDRD (S/P/Bld) [Vol rate/Area] 112 mL/min/{1.73_m2} - PINF [facility] Comment on above: Estimated Glomerular Filtration Rate (eGFR) is calculated using the 2020 CKD-EPI creatinine equation. This equation utilizes serum creatinine, sex, and age as parameters. The creatinine assay has traceable calibration to isotope dilution-mass spectrometry. Refer to KDIGO guidelines for clinical interpretation. In patients with unstable renal function, e.g. those with acute kidney injury, the eGFR may not accurately reflect actual GFR. Glucose [Mass/Vol] 81 mg/dL 74 - 99 mg/dL [facility] Comment on above: The [place] Diabete s Association (ADA) provides guidance for cutoff values for fasting glucose and random glucose. The ADA defines fasting as no caloric intake for at least 8 hours. Fasting plasma glucose results between 100 to 125 mg/dL indicate increased risk for diabetes (prediabetes). Fasting plasma glucose results greater than or equal to 126 mg/dL meet the criteria for diagnosis of diabetes. In the absence of unequivocal hyperglycemia, results should be confirmed by repeat testing. In a patient with classic symptoms of hyperglycemia or hyperglycemic crisis, random plasma glucose results greater than or equal to 200 mg/dL meet the criteria for diagnosis of diabetes. Reference: Standards of Medical Care in Diabetes 2016, [place] Diabetes Association. Diabetes Care. 2016.39(Suppl 1). Potassium [Moles/Vol] 4.2 mmol/L 3.7 - 5.1 mmol/L [facility] Protein [Mass/Vol] 7.1 g/dL 6.3 - 8.0 g/dL [facility] Sodium [Moles/Vol] 138 mmol/L 136 - 144 mmol/L [facility] Urea nitrogen [Mass/Vol] 9 mg/dL 7 - 21 mg/dL [facility] Albumin [Mass/Vol] 3.7 g/dL Low 3.9-4.9 [facility] Comment on above: Order Comment: Speci men Type: BLOOD SPECIMEN Ordering Facility: [facility] Address: [address] [place] [address] Performed By: #### 2 4323-04, 1988-01 #### [facility] CLIA [id number] [address] [place] ALP [Catalytic activity/Vol] 78 U/L Normal 34-123 [facility] Comment on above: Order Comment: Speci men Type: BLOOD SPECIMEN Ordering Facility: [facility] Address: [address] [place] [address] Performed By: #### 2 4323-04, 1988-01 #### [facility] CLIA [id number] [address] [place] ALT With P-5'-P [Catalytic activity/Vol] U/L Low 7-38 [facility] Comment on above: Order Comment: Speci men Type: BLOOD SPECIMEN Ordering Facility: [facility] Address: [address] [place] [address] Performed By: #### 2 4323-04, 1988-01 #### [facility] CLIA [id number] [address] [place] Anion gap [Moles/Vol] 11 mmol/L Normal 8-15 [facility] Comment on above: Order Comment: Speci men Type: BLOOD SPECIMEN Ordering Facility: [facility] Address: [address] [place] [address] Performed By: #### 2 4323-04, 1988-01 #### [facility] CLIA [id number] [address] [place] [address] [place] AST With P-5'-P [Catalytic activity/Vol] 10 U/L Low 13-35 [facility] Comment on above: Order Comment: Speci men Type: BLOOD SPECIMEN Ordering Facility: [facility] Address: [address] [place] [address] Performed By: #### 2 4323-04, 1988-01 #### [facility] CLIA [id number] [address] [place] [address] [place] Bilirubin [Mass/Vol] 0.2 mg/dL Normal 0.2-1.3 [facility] Comment on above: Order Comment: Speci men Type: BLOOD SPECIMEN Ordering Facility: [facility] Address: [address] [place] [address] Performed By: #### 2 4323-04, 1988-01 #### [facility] CLIA [id number] [address] [place] [address] [place] Calcium [Mass/Vol] 9.8 mg/dL Normal 8.5-10.2 [facility] Comment on above: Order Comment: Speci men Type: BLOOD SPECIMEN Ordering Facility: [facility] Address: [address] [place] [address] Performed By: #### 2 4323-04, 1988-01 #### [facility] CLIA [id number] [address] [place] [address] [place] Chloride [Moles/Vol] 101 mmol/L Normal 98-107 [facility] Comment on above: Order Comment: Speci men Type: BLOOD SPECIMEN Ordering Facility: [facility] Address: [address] [place] [address] Performed By: #### 2 4323-04, 1988-01 #### [facility] CLIA [id number] [address] [place] [address] [place] CO2 [Moles/Vol] 26 mmol/L Normal 22-30 [facility] Comment on above: Order Comment: Speci men Type: BLOOD SPECIMEN Ordering Facility: [facility] Address: [address] [place] [address] Performed By: #### 2 4323, 1988-01 #### [facility] CLIA [id number] [address] Creatinine [Mass/Vol] 0.66 mg/dL Normal 0.58-0.96 [facility] Comment on above: Order Comment: Speci men Type: BLOOD SPECIMEN Ordering Facility: [facility] Address: [address] [place] [address] Performed By: #### 2 43211-10, 1988-01 #### [facility] CLIA [id number] [address] Creatinine and Glomerular filtration rate.predicted panel (S/P/Bld) 112 mL/min/1.73m??? Normal >=60 [facility] Comment on above: Order Comment: Kailash men Type: BLOOD SPECIMEN Ordering Facility: [facility] Address: [address] [place] [address] Result Comment: Edwina mated Glomerular Filtration Rate (eGFR) is calculated using the 2020 CKD-EPI creatinine equation. This equation utilizes serum creatinine, sex, and age as parameters. The creatinine assay has traceable calibration to isotope dilution-mass spectrometry. Refer to KDIGO guidelines for clinical interpretation. In patients with unstable renal function, e.g. those with acute kidney injury, the eGFR may not accurately reflect actual GFR. Performed By: #### 2 43211-10, 1988-01 #### [facility] CLIA [id number] [address] [place] Glucose [Mass/Vol] 81 mg/dL Normal 74-99 [facility] Comment on above: Order Comment: Speci men Type: BLOOD SPECIMEN Ordering Facility: [facility] Address: [address] [place] [address] Result Comment: The [place] Diabetes Association (ADA) provides guidance for cutoff values for fasting glucose and random glucose. The ADA defines fasting as no caloric intake for at least 8 hours. Fasting plasma glucose results between 100 to 125 mg/dL indicate increased risk for diabetes (prediabetes). Fasting plasma glucose results greater than or equal to 126 mg/dL meet the criteria for diagnosis of diabetes. In the absence of unequivocal hyperglycemia, results should be confirmed by repeat testing. In a patient with classic symptoms of hyperglycemia or hyperglycemic crisis, random plasma glucose results greater than or equal to 200 mg/dL meet the criteria for diagnosis of diabetes. Reference: Standards of Medical Care in Diabetes 2016, [place] Diabetes Association. Diabetes Care. 2016.39(Suppl 1). Performed By: #### 2 4323-04, 1988-01 #### [facility] CLIA [id number] [address] [place] [address] [place] Potassium [Moles/Vol] 4.2 mmol/L Normal 3.7-5.1 [facility] Comment on above: Order Comment: Elliotti men Type: BLOOD SPECIMEN Ordering Facility: [facility] Address: [address] [place] [address] Performed By: #### 2 4323-04, 1988-01 #### [facility] CLIA [id number] [address] [place] [address] [place] Protein [Mass/Vol] 7.1 g/dL Normal 6.3-8.0 [facility] Comment on above: Order Comment: Kailash montoya Type: BLOOD SPECIMEN Ordering Facility: [facility] Address: [address] [place] [address] Performed By: #### 2 4323-04, 1988-01 #### [facility] CLIA [id number] [address] [place] [address] [place] Sodium [Moles/Vol] 138 mmol/L Normal 136-144 [facility] Comment on above: Order Comment: Speci men Type: BLOOD SPECIMEN Ordering Facility: [facility] Address: [address] [place] [address] Performed By: #### 2 4323-04, 1988-01 #### [facility] CLIA [id number] [address] [place] [address] [place] Urea nitrogen [Mass/Vol] 9 mg/dL Normal 7-21 [facility] Comment on above: Order Comment: Speci men Type: BLOOD SPECIMEN Ordering Facility: [facility] Address: [address] [place] [place] [id number] Performed By: #### 2 4323-8, 1988-01 #### [facility] CLIA [id number] [address] STATES OF [facility] No Panel Informationon 12-12 Interpretation and review of laboratory results Abnormal [facility] CNCOon 12-11-2024 CNCO Letter Text Normal [facility] CNOVon 12-11-2024 CNOV Office Visit ([facility] R) GRISELDA CONCEPCION ([id number]) 1980 F T Date Time Provider Department 12/11/24 10:15 AM BETSY JALLOH [facility] During your visit today, we recorded the following information about you: Pulse Blood pressure 71/minute 131/83 Jennifer Rahman LPN 12/12/2024 8:26 AM Signed Patient here for post op visit.Patient relates incision is draining yellow bloody color and intact.Patient stated incision is red and painful 9/10 left breast.Patient stated site has a smell. NITZA Cole Amanda M, MD 12/12/2024 8:26 AM Signed Ms Concepcion is a 44 year old female here today for post op. She is status post excision of left breast periareolar fistula on 12/03/24. Pathology returned inflammation. Cultures growing actinomyces. Left breast incision intact. No current drainage. Erythema 6 cm x 10 cm upper inner quadrant. No fluctuance. Discussed treatment with doxy. Patient has had difficulty completed antibiotic regimen in the past. Refer to infectious disease. Had oxy post op but too strong. Can try norco. Follow up for wound check in 1 month or sooner if needed. Discussed importance of smoking cessation for resolution of infection. Betsy Jalloh MD Referring Provider: EKTA LEY [[id number]] Allergies As of Date: 12/11/2024 Noted Allergy Reaction ERYTHROMYCIN BASE 01/16/2003 8 - GI Upset KETOROLAC TROMETHAMINE 11/12/2017 2 - Rash NAPROXEN 11/12/2017 2 - Rash TRAMADOL 02/15/2017 8 - GI Upset Date Reviewed: 12/11/2024 Reviewed by: Jennifer Rahman LPN - Fully Assessed Reason for Visit: Post Op [174] Primary Visit Diagnosis:Breast abscess [N61.1] Other Visit Diagnosis:Post-operati ve pain [G89.18] Order(s):CONSULT TO INFECTIOUS DISEASES [9016] Order #: [id number]: 1 FUTURE doxycycline hyclate (VIBRAMYCIN) 100 mg capsuleTake 1 capsule by mouth two times a day.Disp: 84 capsuleRfl: 0 HYDROcodone-acetaminop hen (NORCO) 5-325 mg per tabletTake 1 tablet by mouth two times a day for 4 days.Disp: 8 tabletRfl: 0 Prescriptions as of 12/12/2024 - doxycycline hyclate (VIBRAMYCIN) 100 mg capsule Take 1 capsule by mouth two times a day. - HYDROcodone-acetaminop hen (NORCO) 5-325 mg per tablet Take 1 tablet by mouth two times a day for 4 days. - famotidine (PEPCID) 20 mg tablet Take 1 tablet by mouth two times a day. - albuterol HFA (VENTOLIN HFA) 90 mcg/actuation inhaler Inhale 2 Puffs as instructed every 4 hours as needed for wheezing/shortness of breath. - sertraline (ZOLOFT) 50 mg tablet Take 1 tablet by mouth once daily. - atorvastatin (LIPITOR) 80 mg tablet Take 1 tablet by mouth daily at bedtime. For cholesterol. - cetirizine (ZYRTEC) 10 mg tablet Take 1 tablet by mouth once daily. - fluticasone (FLONASE) 50 mcg/actuation nasal spray Use 2 Sprays in each nostril once daily. Rinse mouth after use. - folic acid 1 mg tablet Take by mouth. takes 4 tabs once a day - pyridoxine HCl, vitamin B6, (VITAMIN B-6 ORAL) Take 1 tablet by mouth once daily. - SUMAtriptan (IMITREX) 50 mg tablet Take 50 mg by mouth as needed. - levETIRAcetam (KEPPRA) 750 mg tablet Take 1.5 tablets by mouth twice daily. Problem List As Of Date 12/11/2024 Noted Resolved REFLEX SYMPATH DYSTRPHY UPPER LIMB [G90.519] 01/18/2003 Migraine without aura [G43.009] 03/14/2003 Generalized convulsive epilepsy (HCC) [G40.309] 03/14/2003 OTHER LEARNING DIFFICULTY [F81.89] 03/14/2003 Depression [F32.A] 03/14/2003 Mild intermittent asthma without complication [*12/02/2005 Obesity, unspecified [E66.9] 04/20/2007 04/09/2015 PAP SMEAR CERVIX W LGSIL [R87.612] 08/14/2008 Papanicolaou smear of cervix with atypical squa*08/14/2008 04/09/2015 Cervical high risk human papillomavirus (HPV) D*08/14/2008 04/09/2015 TOBACCO USE DISORDER [F17.200] 11/07/2008 Goiter [E04.9] 12/17/2009 Supervision of normal first [Z34.00] 05/25/2011 05/25/2011 Supervision of other high-risk [O09.8*05/25/2011 12/20/2012 Porokeratosis [Q82.8] 06/04/2011 04/09/2015 Abnormality of gait [R26.9] 11/05/2011 Skin lesion [L98.9] 01/19/2012 04/09/2015 Lumbar strain [S39.012A] 05/17/2012 04/09/2015 Chronic, continuous use of opioids [F11.90] 10/17/2012 04/09/2015 Chronic pain [G89.29] 10/17/2012 04/09/2015 Left foot pain [M79.672] 10/17/2012 04/09/2015 Benign neoplasm of skin of trunk, except scrotu*02/07/2013 04/09/2015 Hemangioma [D18.00] 02/15/2013 04/09/2015 Hyperlipidemia [E78.5] 01/07/2015 Contusion of scapular region [S40.019A] 02/18/2015 Neoplasm, brain (HCC) [D49.6] 07/06/2016 GERD (gastroesophageal reflux disease) [K21.9] Acute bilateral low back pain without sciatica *05/30/2018 11/27/2021 History of seizures [Z87.898] 01/11/2019 Disability due to neurological disorder [R29.81*01/11/2019 History of asthma [Z87.09] 01/11/2019 11/27/2021 Tobacco use in , antepartum [O (more content not included)... [facility] CNPN Telephone (AGGBRCR) GRISELDA CONCEPCION ([id number]) 1980 F CHT Date Time Provider Department 12/07/24 BETSY JALLOH [facility] During your visit today, we recorded the following information about you: Gerardo Farrar RN 12/07/2024 8:41 AM Signed Pt mother called in, pt is having ongoing pain after excision on 12/03. Mother states site is slightly pink, no drainage. Some swelling. No fevers. They are requesting something else for pain. Pt used all of ordered percocet but said she did not like how it made her feel. Please advise. Gerardo Farrar RN Allergies As of Date: 12/07/2024 Noted Allergy Reaction ERYTHROMYCIN BASE 01/16/2003 8 - GI Upset KETOROLAC TROMETHAMINE 11/12/2017 2 - Rash NAPROXEN 11/12/2017 2 - Rash TRAMADOL 02/15/2017 8 - GI Upset Date Reviewed: 12/03/2024 Reviewed by: Anika De León, ERNESTINA - Fully Assessed Reason for Visit: Patient Question [8293] Prescriptions as of 12/07/2024 - famotidine (PEPCID) 20 mg tablet Take 1 tablet by mouth two times a day. - acetaminophen (TYLENOL EXTRA STRENGTH) 500 mg tablet Take 2 tablets by mouth every 6 hours as needed for pain for up to 40 doses. - oxyCODONE IR (ROXICODONE) 5 mg immediate release tablet Take 1 tablet by mouth every 8 hours as needed for pain for up to 10 doses. - albuterol HFA (VENTOLIN HFA) 90 mcg/actuation inhaler Inhale 2 Puffs as instructed every 4 hours as needed for wheezing/shortness of breath. - sertraline (ZOLOFT) 50 mg tablet Take 1 tablet by mouth once daily. - atorvastatin (LIPITOR) 80 mg tablet Take 1 tablet by mouth daily at bedtime. For cholesterol. - cetirizine (ZYRTEC) 10 mg tablet Take 1 tablet by mouth once daily. - fluticasone (FLONASE) 50 mcg/actuation nasal spray Use 2 Sprays in each nostril once daily. Rinse mouth after use. - folic acid 1 mg tablet Take by mouth. takes 4 tabs once a day - pyridoxine HCl, vitamin B6, (VITAMIN B-6 ORAL) Take 1 tablet by mouth once daily. - SUMAtriptan (IMITREX) 50 mg tablet Take 50 mg by mouth as needed. - levETIRAcetam (KEPPRA) 750 mg tablet Take 1.5 tablets by mouth twice daily. 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] 03/14/2003 OTHER LEARNING DIFFICULTY [F81.89] 03/14/2003 Depression [F32.A] 03/14/2003 Mild intermittent asthma without complication [*12/02/2005 Obesity, unspecified [E66.9] 04/20/2007 04/09/2015 PAP SMEAR CERVIX W LGSIL [R87.612] 08/14/2008 Papanicolaou smear of cervix with atypical squa*08/14/2008 04/09/2015 Cervical high risk human papillomavirus (HPV) D*08/14/2008 04/09/2015 TOBACCO USE DISORDER [F17.200] 11/07/2008 Goiter [E04.9] 12/17/2009 Supervision of normal first [Z34.00] 05/25/2011 05/25/2011 Supervision of other high-risk [O09.8*05/25/2011 12/20/2012 Porokeratosis [Q82.8] 06/04/2011 04/09/2015 Abnormality of gait [R26.9] 11/05/2011 Skin lesion [L98.9] 01/19/2012 04/09/2015 Lumbar strain [S39.012A] 05/17/2012 04/09/2015 Chronic, continuous use of opioids [F11.90] 10/17/2012 04/09/2015 Chronic pain [G89.29] 10/17/2012 04/09/2015 Left foot pain [M79.672] 10/17/2012 04/09/2015 Benign neoplasm of skin of trunk, except scrotu*02/07/2013 04/09/2015 Hemangioma [D18.00] 02/15/2013 04/09/2015 Hyperlipidemia [E78.5] 01/07/2015 Contusion of scapular region [S40.019A] 02/18/2015 Neoplasm, brain (HCC) [D49.6] 07/06/2016 GERD (gastroesophageal reflux disease) [K21.9] Acute bilateral low back pain without sciatica *05/30/2018 11/27/2021 History of seizures [Z87.898] 01/11/2019 Disability due to neurological disorder [R29.81*01/11/2019 History of asthma [Z87.09] 01/11/2019 11/27/2021 Tobacco use in , antepartum [O99.330] 01/11/2019 11/27/2021 History of depression [Z86.59] 01/11/2019 11/27/2021 History of loop electrosurgical excision proced*01/11/2019 Patient request for diagnostic testing [Z01.89] 01/11/2019 11/27/2021 Asthma [J45.909] Seasonal allergies [J30.2] 11/27/2021 Mass of upper inner quadrant of left breast [N6*11/19/2024 At high risk for breast cancer [Z91.89] 11/19/2024 Preop examination [Z01.818] 12/03/2024 Seizures (HCC) [R56.9] 12/03/2024 Breast abscess [N61.1] 12/03/2024 Smoker [F17.200] 12/03/2024 Encounter Status:Closed by GERARDO FARRAR on 12/07/24 [facility] ANES POSTPROC EVALon 025 ANES POSTPROC EVAL HNO ID: [id number] Author: FLASH TUCKER MD Service: Anesthesiology Author Type: Physician Type: Anesthesia Postprocedure Evaluation Filed: 12/03/2024 14:10 Note Text: POST ANESTHESIA EVALUATION NOTE : 1980 Procedure Summary Date: 12/03/24 Room / Location: [place] [facility] / [facility] [place] Anesthesia Start: 1256 Anesthesia Stop: Procedure: OPEN EXCISION OF BREAST LESION UNILATERAL FEMALE BREAST left breast excision of chronic abscess and fistula (Left: Breast) Diagnosis: Breast abscess (Breast abscess [N61.1]) Surgeons: Betsy Jalloh MD Responsible Provider: Flash Tucker MD Anesthesia Type: general ASA Status: 2 Anesthesia Type: general Airway Type: LMA Last Vitals Vitals Value Taken Time BP 127/60 12/03/24 1406 Temp 36.1 ?C (97 ?F) 12/03/24 1403 Pulse 72 12/03/24 1409 Resp 18 12/03/24 1409 SpO2 100 % 12/03/24 1409 Vitals shown include unfiled device data. Post Anesthesia Patient Status Anticipated Disposition: phase 2 then home. Neurological Status: sleepy but arousable. Pulmonary Status: breathing comfortably on supplemental oxygen Airway Control: returned to baseline unsupported. Cardiovascular Status: stable. Pain Management: clinically adequate Postoperative Hydration: acceptable. Intraoperative Events: no significant anesthesia events Post Operative Nausea/Vomiting Status: no significant post operative nausea or vomiting Recommendation: further care per PACU/ICU/floor team. Anesthesia Observations No Documentation SIGNATURE: Flash Tucker MD PATIENT NAME: Griselda Concepcion DATE: December 03, 2024 TIME: 2:09 PM CSN: [id number] [facility] ANES PRE-OPon 12-03-2024 ANES PRE-OP HNO ID: [id number] Author: FLASH TUCKER MD Service: Anesthesiology Author Type: Physician Type: Anesthesia Preprocedure Evaluation Filed: 12/03/2024 12:29 Note Text: ANESTHESIOLOGY DAY OF SURGERY NOTE : 1980 Procedure Information Date/Time: 12/03/24 1330 Procedure: OPEN EXCISION OF BREAST LESION UNILATERAL FEMALE BREAST left breast excision of chronic abscess and fistula (Left: Breast) - ERAS PROTOCOL, NO PEC BLOCK Location: [place] OR 15 / [place] Surgeons: Betsy Jalloh MD Estimated body mass index is 23.01 kg/m? as calculated from the following: Height as of 05/24/23: 174.4 cm (5' 8.66). Weight as of 11/20/24: 70 kg (154 lb 5.2 oz). Most recent hematocrit and potassium results: Hematocrit 43.7 05/26/2023 Potassium 3.9 05/26/2023 Relevant Problems CARDIO (+) Migraine without aura GI (+) GERD (gastroesophageal reflux disease) NEURO-PSYCH (+) Generalized convulsive epilepsy (HCC) (+) History of seizures (+) Migraine without aura PULMONARY (+) Asthma (HCC) (+) Mild intermittent asthma without complication (HCC) I - PHYSICAL EVALUATION AIRWAY Patient intubated: No. Tracheostomy tube not present Mallampati: III. TM distance: >3 FB. Neck ROM: full ROM without neurological symptoms. Mouth opening: adequate. Short neck: no. Thick neck: no DENTAL Dental findings: missing tooth/teeth. Additional exam findings: no II - ANESTHESIA PLAN ASA Score: 2 Anesthetic Plan: general Airway type: LMA NPO Status: adequate Anesthetic plan additional comments: HCG neg. Beta Kerry Monitoring Plan Monitoring plan: standard ASA. Post Procedure Analgesic Plan Postoperative analgesic plan: parenteral or oral opioids and multimodal analgesia. Informed Consent Anesthetic risks, benefits, alternatives, personnel and consent discussed: yes. Patient / Responsible Republican agrees to proceed: yes Patient / Surrogate agrees to blood products: Yes Significant changes in the patient condition since the History and Physical, not otherwise documented in primary service progress note: no. Vitals Value Taken Time BP 106/68 12/03/24 1149 Pulse 81 12/03/24 1146 Resp Temp 36.1 ?C (97 ?F) 12/03/24 1146 SpO2 92 % 12/03/24 1146 Vitals shown include unfiled device data. Facility-Administered Medications as of 12/03/2024 Medication Dose Route Frequency lidocaine (PF) 10 mg/mL (1 %) 1-2 mg injection (XYLOCAINE) 0.1-0.2 mL INTRADERMAL PRN lactated ringers iv infusion 5-30 mL/hr INTRAVENOUS CONTINUOUS NaCl 0.9% iv flush bag 20 mL INTRAVENOUS PRN [COMPLETED] heparin 5,000 Units injection 5,000 Units SUBCUTANEOUS Pre-Op Once [COMPLETED] acetaminophen 975 mg tab(s) (TYLENOL) 975 mg ORAL Pre-Op Once ceFAZolin iv piggyback 2 g in D5W (iso-osmotic) 100 mL (ANCEF) 2 g INTRAVENOUS Pre-Op Once Outpatient Medications as of 12/03/2024 Medication Sig albuterol HFA (VENTOLIN HFA) 90 mcg/actuation inhaler Inhale 2 Puffs as instructed every 4 hours as needed for wheezing/shortness of breath. sertraline (ZOLOFT) 50 mg tablet Take 1 tablet by mouth once daily. atorvastatin (LIPITOR) 80 mg tablet Take 1 tablet by mouth daily at bedtime. For cholesterol. cetirizine (ZYRTEC) 10 mg tablet Take 1 tablet by mouth once daily. fluticasone (FLONASE) 50 mcg/actuation nasal spray Use 2 Sprays in each nostril once daily. Rinse mouth after use. folic acid 1 mg tablet Take by mouth. takes 4 tabs once a day pyridoxine HCl, vitamin B6, (VITAMIN B-6 ORAL) Take 1 tablet by mouth once daily. SUMAtriptan (IMITREX) 50 mg tablet Take 50 mg by mouth as needed. levETIRAcetam (KEPPRA) 750 mg tablet Take 1.5 tablets by mouth twice daily. I have interviewed and examined the patient. I have reviewed the medical record and/or the pre-anesthesia evaluation, pertinent labs, and test results. This contains updated information obtained within 48 hours of Surgery/Procedure. SIGNATURE: Flash Tucker MD PATIENT NAME: Griselda Concepcion DATE: December 03, 2024 TIME: 12:24 PM CSN: [id number] Normal [facility] Bacteria Spec Anaerobe Culto n 12-03-2024 Bacteria identified Anaer cx Nom (Unsp spec) ORGANISM ID: 1 Few Actinomyces (Schaalia) turicensis No further workup Normal [facility] Comment on above: Performed By: #### 6 35-3, [id number] ####[facility]ORY[facility]IA [id number] [place] [address] [facility] [facility] Bacteria Tiss Culton 025 Bacteria identified Cx Nom (Tiss) CULTURE, TISSUE: No growth 3 days GRAM STAIN: No cells or organisms seen Normal [facility] Comment on above: Performed By: #### 6 35-3, [id number] ####[facility]ORATORYCLIA [id number] [place] [address] [facility] HISTORY PHYSICALon HISTORY PHYSICAL HNO ID: [id number] Author: STELLA JOSEPH APRN.BRAKE ADJUSTER Service: ? Author Type: Nurse Practitioner Type: H&P Filed: 12/03/2024 12:59 Note Text: HISTORY AND PHYSICAL EXAMINATION SERVICE DATE: 12/03/2024 SERVICE TIME: 11:52 AM PRIMARY CARE PHYSICIAN: Ekta Ley MD REASON FOR VISIT: Griselda Concepcion is a 44 year old female who is scheduled for Procedure(s) with comments: OPEN EXCISION OF BREAST LESION UNILATERAL FEMALE BREAST left breast excision of chronic abscess and fistula (Left) - ERAS PROTOCOL, NO PEC BLOCK at the request of Dr. Jalloh for routine HANDP. The reason for this visit is to perform a comprehensive review of the patient's past medical history, assess their current health status and obtain any additional testing required based on anesthesia guidelines. We will also identify any potential anesthesia problems or contraindications to the planned procedure. 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 Depression Mild Intermittent Asthma Without Complication Papanicolaou Smear of Cervix With Low Grade Squamous Intraepithelial Lesion (Lgsil) Tobacco Use Disorder Goiter Abnormality of Gait Hyperlipidemia Contusion of Scapular Region Neoplasm, Brain (Hcc) Gerd (Gastroesophageal Reflux Disease) History of Seizures Disability Due to Neurological Disorder History of Loop Electrosurgical Excision Procedure (Leep) of Cervix Affecting , Antepartum Asthma Seasonal Allergies Mass of Upper Inner Quadrant of Left Breast At High Risk for Breast Cancer Preop Examination Seizures (Hcc) Breast Abscess Smoker Subjective CHIEF COMPLAINT: Breast abscess HPI: Patient is a 44 year old female who presents to pre surg for the above procedure. Pt has a history of a chronic left breast abscess. She has been dealing with this since 2021. She had an IANDD done 08/2024 and put on a 2 month course of amoxicillin and doxcycline but did not tolerate. Currently pt complains of intermittent drainage. Denies current drainage, pain or fevers. Pt discussed with surgeon and agrees to surgical intervention. PAST MEDICAL HISTORY Diagnosis Date Abnormal glandular Papanicolaou smear of cervix 02/18/2009 Abn. Pap smear (cervix), f/u with women's health Asthma Brain lesion Dr. 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 : 11/27/2022 Missed Reflex sympathetic dystrophy of other specified site left arm Seasonal allergies Thyroid disease PAST SURGICAL HISTORY Procedure Laterality Date BREAST SURGERY HX Left BX OF BREAST; INCISIONAL Left 05/2024 BX OF BREAST; INCISIONAL Left 2021 EXCISION GANGLION WRIST DORSAL/VOLAR PRIMARY IANDD HEMATOMA SEROMA/FLUID COLLECTION 12/30/2021 left breast INCISION AND DRAINAGE PROCEDURE (W NOTE) Left 03/11/2022 breast PAST SURGICAL HISTORY OF LEFT ARM, CYST Removed PAST SURGICAL HISTORY OF LEEP PAST SURGICAL HISTORY OF 04/2012, 2016 left foot surgery TONSILLECTOMY PRIMARY/SECONDARY Tonsillectomy FAMILY HISTORY Problem Relation Age of Onset Cancer Mother UTERINE Hypertension Mother Lipids Mother Lipids Father other (clot in heart) Father No Known Problems Sister No Known Problems Sister No Known Problems Brother Heart Maternal Grandmother ANGINA Hypertension Maternal Grandmother Diabetes Maternal Grandmother Dementia Maternal Grandmother No Known Problems Maternal Grandfather Hypertension Paternal Grandmother Seizures Daughter Aneurysm Maternal Aunt 2 aunts other (arteriovenous malformation) Maternal Aunt Breast Cancer Paternal Aunt Ovarian cancer No Family History SOCIAL HISTORY: Social History Tobacco Use Smoking status: Every Day Current packs/day: 0.50 Average packs/day: 0.5 packs/day for 18.0 years (9.0 ttl pk-yrs) Types: Cigarettes Smokeless tobacco: Never Vaping Use Vaping status: Never Used Substance Use Topics Alcohol use: No Drug use: No Prior to Admission medications as of 12/03/24 1230 Medication Sig Last Dose Taking albuterol HFA (VENTOLIN HFA) 90 mcg/actuation inhaler Inhale 2 Puffs as instructed every 4 hours as needed for wheezing/shortness of breath. 12/03/2024 at 11:00 AM Yes sertraline (ZOLOFT) 50 mg tablet Take 1 tablet by mouth once daily. 12/03/2024 at 9:00 AM Yes atorvasta (more content not included)... Normal [facility] OPERATIVE NOon 12-03-2024 OPERATIVE NO HNO ID: [id number] Author: BETSY JALLOH MD Service: General Surgery Author Type: Physician Type: Operative Report Filed: 12/04/2024 09:41 Note Text: Attestation signed by Betsy Jalloh MD at 12/04/2024 9:41 AM Attestation: I was present for the critical and carias portions of the surgery and I was immediately available to provide assistance. Betsy Jalloh MD OPERATIVE REPORT LOG ID: [id number] SURGERY/PROCEDURE DATE: 12/03/2024 INCISION/PROCEDURE START TIME: 1:18 PM INCISION CLOSE/PROCEDURE END TIME: 1:41 PM SURGEON(S)/PROCEDURALI ST(S) AND HIGHWAY MAINTENANCE CREW WORKER(S): Surgeons and Role: * Betsy Jalloh MD - Primary * Su Granger MD - Fellow Engine Repair Supervisor: Berenice Piña SA SURGERY/PROCEDURE(S): Procedure(s) with comments: OPEN EXCISION OF BREAST LESION UNILATERAL FEMALE BREAST left breast excision of chronic abscess and fistula - ERAS PROTOCOL, NO PEC BLOCK ANESTHESIA: General FINDINGS: left breast chronic draining sinus at 10:00-11:00 in the subareolar region. DRAINS: None IV FLUIDS: Per anesthesia report ESTIMATED BLOOD LOSS: 5 cc SPECIMENS: ID Type Source Tests Collected by Time Destination 1 : left breast jennifer areolar chronic fistula Tissue Breast, Left BACTERIAL CULTURE, TISSUE AND WOUND, ANAEROBIC Betsy Jalloh MD 12/03/2024 1:25 PM A : left breast jennifer areolar chronic fistula Tissue Breast, Left, Excision of Lesion SURGICAL PATHOLOGY Betsy Jalloh MD 12/03/2024 1:29 PM ANTIBIOTICS: Current Anti-Infective Meds (From admission, onward) Start Stop Route Frequency Ordered 12/03/24 1330 ceFAZolin iv piggyback 2 g in D5W (iso-osmotic) 100 mL (ANCEF) 12/03/24 1305 INTRAVENOUS PRE-OP ONCE 12/03/24 1133 COMPLICATIONS: None PRE-OP/PRE-PROCEDURE DIAGNOSIS: Pre-Op Diagnosis Codes: * Breast abscess [N61.1] POST-OP/POST-PROCEDURE DIAGNOSIS: Same INDICATION FOR PROCEDURE: Griselda Concepcion is a 44 year old with history of recurrent periareolar breast abscess treated in the past and currently presented with a non-healing wound with persistent drainage in her left periareolar region concerning for a fistulous tract for which excision was recommended. The risks, benefits, alternatives, and potential complications of reaction to anesthesia, infection, bleeding, seroma, pain, skin necrosis, anaphylaxis and need for additional procedures were discussed with the patient and they did wish to proceed with the above procedure. DESCRIPTION OF PROCEDURE: The patient was brought to the operative suite. She was placed in the supine position on the operating table. After satisfactory induction of anesthesia, an appropriate time out was performed confirming correct patient, position, equipment, and procedure. The left breast was draped and prepped. We identified the draining sinus tract in the subareolar region at 10 - 11:00 position. We marked an elliptical incision encompassing the lesion and involving a small portion of the nipple. The area was locally anesthestized. Incision was made with a #15 blade. Dissection was carried down to the subcutaneous space and towards the breast parenchyma. The specimen was excised, leaving healthy tissue at the base of the wound. The cavity was irrigated with sterile saline and meticulous hemostasis was achieved with electrocautery. Next, we proceeded to close the incision in layers. The subcutaneous tissue was approximated with 3.0 Vicryl. The deep dermal space was closed with interrupted and inverted sutures of 3-0 Monocryl. The skin was then reapproximated with 4-0 Monocryl in a running subcuticular fashion. The surgical area was cleaned and dried. Surgical glue was applied to the incisions. The patient tolerated the procedure well and was taken to the post-anesthesia care unit in stable condition. All instrument, sponge, and needle counts were correct at the end of the case. Surgical debriefing was completed prior to leaving the operating room. Dr. Jalloh was present throughout the entire procedure. SIGNATURE: Su Palacios MD PATIENT NAME: Griselda Concepcion DATE: December 03, 2024 TIME: 2:08 PM Normal [facility] Pathology biopsy report Macho (Tiss)on 12-03-2024 AP DISCLAIMER Normal [facility] Comment on above: Order Comment: Speci men Type: TISSUE SPECIMENOrdering Facility: [facility] Address: [address] [place] [address] Result Comment: Mary desouza Developed Test (LDT) Disclaimer: Performance characteristics of immunohistochemical, immunofluorescent, and chromogenic in-situ hybridization tests have been determined by the performing laboratory within [facility]'s Eulalio Brooks Pathology and Laboratory Medicine Department ([facility], [facility], [facility], [facility], [facility], [facility], or [facility]) in a manner consistent with CLIA requirements. One or more of these tests may not have been cleared or approved by the FDA. [facility] is regulated under CLIA as qualified to perform high-complexity testing. These tests are used for clinical purposes. These should not be regarded as investigational or for research. Positive and negative controls stain appropriately. Performed By: #### 6 [id number] ####[facility]ORATORYCLIA [id number] [address] OF [place] CASE REPORT Normal [facility] Comment on above: Order Comment: Speci men Type: TISSUE SPECIMENOrdering Facility: [facility] Address: [address] [place] [address] Result Comment: Surg [facility] Pathology Report Case: [id number] Authorizing Provider: Betsy Jalloh MD Collected: 12/03/2024 01:29 PM Ordering Location: [facility] Received: 12/04/2024 08:51 AM Pathologist: Flash Polanco MD Specimen: Breast, Left, Excision of Lesion, left breast jennifer areolar chronic fistula Performed By: #### 6 6121-5 ####[facility] LABORATORYCLIA [id number] [address] CLINICAL HISTORY Normal [facility] Comment on above: Order Comment: Speci men Type: TISSUE SPECIMENOrdering Facility: [facility] Address: [address] [place] [address] Result Comment: Pre- op diagnosis: Breast abscess [N61.1] Performed By: #### 6 6121-5 ####[facility]ATORYCLIA [id number] [address] FINAL DIAGNOSIS Normal [facility] Comment on above: Order Comment: Speci men Type: TISSUE SPECIMENOrdering Facility: [facility] Address: [address] [place] [address] Result Comment: A. B reast, left, periareolar fistula, excision: - Skin with patchy epidermal acute inflammation and abundant dermal chronic inflammation. - There is no evidence of malignancy. at 1329 EDT Performed By: #### 6 6121-5 ####[facility]ATORYCLIA [id number] [address] OF [facility] FINAL PERFORMING LAB Normal [facility] Comment on above: Order Comment: Speci men Type: TISSUE SPECIMENOrdering Facility: [facility] Address: [address] [place] [address] Result Comment: Diag nostic interpretation performed at: [facility], [address] [id number] Polisher Balance Screwhead: Denton Terry MD Performed By: #### 6 6121-5 ####[facility]ORATORYCLIA [id number] [address] GROSS DESCRIPTION Normal [facility] Comment on above: Order Comment: Speci men Type: TISSUE SPECIMENOrdering Facility: [facility] Address: [facility] [place] [address] Result Comment: Bruce ferguson, Left, Excision of Lesion Received in formalin labeled left breast periareolar chronic fistula is an irregular yellow-kim fibrofatty segment of tissue measuring 1.2 x 1.1 x 0.8 cm and weighing 1 g. A segment of skin is present on 1 surface measuring 1.0 x 0.6 cm. The skin surface has a wrinkled appearance. The specimen is serially sectioned to reveal a kim-pink fibrous and yellow fatty appearing cut surface. The specimen is totally submitted in formalin in 1 cassette. Time removed from patient is 1329 on 12/03/2024. Time placed in formalin is not given. Gross examination performed at [facility], [address] [place] [address] KVB December 04, 2024 11:26 AM Performed By: #### 6 6121-5 ####[facility] LABORATORYCLIA [id number] [address] Emergency Department Summary on 11-29-2024 Emergency Department Summary [facility] Medical Records Department [address] [place] [id number] Emergency Department Summary 11/29/24 MR#: [id number] Acct: [id number] Name: GRISELDA CONCEPCION Rep #: [id number] : 1980 44 From: Vj Nguyen DO PCP: Dr. Adrian Ley MD Status:DEP ER Location: ED HPI History of Present Illness Chief Complaint: Back Narrative Narrative: Chief complaint and HPI: Low back pain. 44-year-old female with past medical history of chronic lumbar back pain presents for evaluation of low back pain. Patient states that she intermittently gets flareups of her low back pain. She states this episode happened shortly after awakening. She states that she missed work secondary to the pain. She denies any injury or trauma. States it feels like her typical back pain. Denies numbness, weakness, urinary retention, stool or urinary incontinence, saddle anesthesia, recent invasive manipulation of the spine, or fever. Denies any nausea, vomiting, abdominal pain, dysuria. Review of systems: See HPI Medications: As listed on the chart Allergies: As listed on the chart PFSH: Per chart Vital signs: As listed on the chart. Reviewed. Physical exam: Gen: A O x3, NAD Head: Normocephalic, atraumatic Eyes: No sclera icterus, conjunctiva clear ENT: Moist mucous membranes Neck: Trachea midline, full range of motion, nontender CV: RRR, no murmurs, no peripheral edema Resp: Lungs CTA BL, no w/r/c GI: Abd soft, non-distended, non-tender, no r/r/g Musc: Full ROM, no deformity, strength +5/5 in all extremities, no midline spinal tenderness, no bony step-offs, mild tenderness to palpation of the paraspinal musculature bilaterally of the lower lumbar spine- no signs of trauma or infection, DP/PT pulses +2 bilaterally, Skin: Warm, dry, intact Neuro: Alert, oriented, grossly intact, sensation intact Psych: Cooperative, appropriate mood and affect [facility] Medical History Hx LEEP (loop electrosurgical excision procedure), cervix, Hyperlipidemia GERD (gastroesophageal reflux disease) Depression Breast abscess RSD (reflex sympathetic dystrophy) History of sciatica Seizure disorder History of asthma Genital herpes Mental retardation Home Medications ???Medication ???Instructions ???Recorded ???Last Taken ???Type albuterol sulfate 90 mcg/actuation 2 puff inhalation Q4H PRN PRN So b 09/02/15 Unknown History aerosol inhaler (Ventolin HFA) /Or Wheezing cetirizine 10 mg capsule (Zyrtec) 10 mg PO DAILY 09/09/16 Unknown H istory folic acid 1 mg tablet 1 mg PO DAILY 09/09/16 Unknown His tory sertraline 50 mg tablet 50 mg PO DAILY 09/09/16 Unknown Hi story atorvastatin 80 mg tablet 80 mg PO QHS 05/21/22 Unknown Hist ory fluticasone propionate 50 2 spray intranasal Q12H PRN Unknown History mcg/actuation nasal allergy symptoms spray,suspension pyridoxine (vitamin B6) 250 mg 250 mg PO DAILY 05/21/22 Unknown H istory tablet sumatriptan succinate 50 mg tablet 50 mg PO DAILY 05/21/22 Unknown History cyclobenzaprine 5 mg tablet 5 mg PO TID PRN muscle spasm 3 Unknown Rx days #9 tabs Allergy/AdvReac Type Severity Reaction Status Date / Time erythromycin base Allergy Hives Verified 11/29/24 11:54 (Erythromycin Base) ketorolac tromethamine (From Allergy Rash Verified 11/29/24 11:54 Toradol) naproxen (From Naprosyn) Allergy Rash Verified 11/29/24 11:54 Family History Mother Uterine cancer Hypertension Hyperlipidemia Father Hyperlipidemia Pulmonary embolism and infarction Surgical History History of D C Status post incision and drainage ( 03/2022) History of surgery on arm Hx of toe surgery Social History Smoking Status: Light Smoker (<10/day) alcohol intake: never substance use type: does not use caffeine: Yes what type of physical activity do you participate in: walking frequency: daily seatbelt use: always do you feel safe at home: Yes additional social history: Gloria Farmer EXAM Physical Exam Const Vital Signs: 11/29/24 11:55 Temperature 96.3 F L Temperature Source Temporal Pulse Rate 76 Respiratory Rate 14 Blood Pressure 122/72 H Blood Pressure Mean 88 Pulse Ox 98 Oxygen Delivery Method Room Air MDM MDM MDM Narrative Medical decision making narrative: 44-year-old female with past medical history of chronic lumbar back pain presents for evaluation of low back pain. Patient states that she intermittently gets flareups of her low back pain. This episode feels like her typical back pain. On (more content not included)... [facility] Tele[facility] (AGGBRCR) GRISELDA CONCEPCION ([id number]) 1980 F CHT Date Time Provider Department 11/28/24 BETSY JALLOH AGGBRALDO During your visit today, we recorded the following information about you: Jorydn Linn MA 11/28/2024 9:34 AM Signed Patient was notified regarding her upcoming surgery on 12/03/24 at 1:30 pm, patient to arrive at 11:15 am, presurgical testing day of surgery at 11:30 am, and post op appointment on 12/11/24 at 10:15 am. Jordyn Linn MA Allergies As of Date: 11/28/2024 Noted Allergy Reaction ERYTHROMYCIN BASE 01/16/2003 8 - GI Upset KETOROLAC TROMETHAMINE 11/12/2017 2 - Rash NAPROXEN 11/12/2017 2 - Rash TRAMADOL 02/15/2017 8 - GI Upset Date Reviewed: 11/27/2024 Reviewed by: Betsy Jalloh MD - Fully Assessed Reason for Visit: Preparations For Surgery [898] Prescriptions as of 11/28/2024 - albuterol HFA (VENTOLIN HFA) 90 mcg/actuation inhaler Inhale 2 Puffs as instructed every 4 hours as needed for wheezing/shortness of breath. - sertraline (ZOLOFT) 50 mg tablet Take 1 tablet by mouth once daily. - atorvastatin (LIPITOR) 80 mg tablet Take 1 tablet by mouth daily at bedtime. For cholesterol. - cetirizine (ZYRTEC) 10 mg tablet Take 1 tablet by mouth once daily. - fluticasone (FLONASE) 50 mcg/actuation nasal spray Use 2 Sprays in each nostril once daily. Rinse mouth after use. - folic acid 1 mg tablet Take by mouth. takes 4 tabs once a day - pyridoxine HCl, vitamin B6, (VITAMIN B-6 ORAL) Take by mouth. - SUMAtriptan (IMITREX) 50 mg tablet Take 50 mg by mouth as needed. - levETIRAcetam (KEPPRA) 750 mg tablet Take 1.5 tablets by mouth twice daily. Problem List As Of Date 11/28/2024 Noted Resolved REFLEX SYMPATH DYSTRPHY UPPER LIMB [G90.519] 01/18/2003 Migraine without aura [G43.009] 03/14/2003 Generalized convulsive epilepsy (HCC) [G40.309] 03/14/2003 OTHER LEARNING DIFFICULTY [F81.89] 03/14/2003 Depression [F32.A] 03/14/2003 Mild intermittent asthma without complication [*12/02/2005 Obesity, unspecified [E66.9] 04/20/2007 04/09/2015 PAP SMEAR CERVIX W LGSIL [R87.612] 08/14/2008 Papanicolaou smear of cervix with atypical squa*08/14/2008 04/09/2015 Cervical high risk human papillomavirus (HPV) D*08/14/2008 04/09/2015 TOBACCO USE DISORDER [F17.200] 11/07/2008 Goiter [E04.9] 12/17/2009 Supervision of normal first [Z34.00] 05/25/2011 05/25/2011 Supervision of other high-risk [O09.8*05/25/2011 12/20/2012 Porokeratosis [Q82.8] 06/04/2011 04/09/2015 Abnormality of gait [R26.9] 11/05/2011 Skin lesion [L98.9] 01/19/2012 04/09/2015 Lumbar strain [S39.012A] 05/17/2012 04/09/2015 Chronic, continuous use of opioids [F11.90] 10/17/2012 04/09/2015 Chronic pain [G89.29] 10/17/2012 04/09/2015 Left foot pain [M79.672] 10/17/2012 04/09/2015 Benign neoplasm of skin of trunk, except scrotu*02/07/2013 04/09/2015 Hemangioma [D18.00] 02/15/2013 04/09/2015 Hyperlipidemia [E78.5] 01/07/2015 Contusion of scapular region [S40.019A] 02/18/2015 Neoplasm, brain (HCC) [D49.6] 07/06/2016 GERD (gastroesophageal reflux disease) [K21.9] Acute bilateral low back pain without sciatica *05/30/2018 11/27/2021 History of seizures [Z87.898] 01/11/2019 Disability due to neurological disorder [R29.81*01/11/2019 History of asthma [Z87.09] 01/11/2019 11/27/2021 Tobacco use in , antepartum [O99.330] 01/11/2019 11/27/2021 History of depression [Z86.59] 01/11/2019 11/27/2021 History of loop electrosurgical excision proced*01/11/2019 Patient request for diagnostic testing [Z01.89] 01/11/2019 11/27/2021 Asthma [J45.909] Seasonal allergies [J30.2] 11/27/2021 Mass of upper inner quadrant of left breast [N6*11/19/2024 At high risk for breast cancer [Z91.89] 11/19/2024 Encounter Status:Closed by JORDYN LINN on 11/28/24 [facility] CNCOon 11-27-2024 CNCO Letter Text [facility] CNOVon 11-27-2024 CNOV Office Visit (AGGBRC R) GRISELDA CONCEPCION ([id number]) 1980 F T Date Time Provider Department 11/27/24 1:45 PM [facility] During your visit today, we recorded the following information about you: Pulse Blood pressure Last Period 63/minute 105/68 11/27/24 Jennifer Rahman LPN 12/26/2024 8:48 AM Signed Patient presents for follow up after imaging.Patient stated soreness in the left breast.Patient stated yellowish drainage over the weekend from left breast. 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 Had IANDD at outside facility in August 2024. Cultures grew staph hominis and schaalia turicensis (formerly actinomyces). She was prescribed 2 month course of amoxicillin and doxcycline but did not tolerate. Today, left US showed irregular shaped fluid collection with significant peripheral vascularity and clear skin tract measures 1.5 x 0.6 x 0.9 cm BIRADS 2. AGE AT [place] 12 AGE AT FIRST 32 FAMILY HISTORY OF BREAST CANCER Yes (IF YES) NUMBER OF FIRST DEGREE RELATIVES WITH BREAST CANCER no PREVIOUS BREAST BIOPSIES Yes (2) (IF YES) PREVIOUS BREAST BIOPSY WITH ATYPICAL HYPERPLASIA No RACE JERARDO MODEL RISK 7 YEAR 2.7 JERARDO MODEL RISK LIFETIME 22.6 Review of Systems Constitutional: Negative for fever, malaise/fatigue and weight loss. Breast: See HPI PAST MEDICAL HISTORY Diagnosis Date Abnormal glandular Papanicolaou smear of cervix 02/18/2009 Abn. Pap smear (cervix), f/u with women's health Asthma (HCC) Brain lesion Dr. 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 : 11/27/2022 Missed (HCC) Reflex sympathetic dystrophy of other specified site left arm Seasonal allergies Thyroid disease PAST SURGICAL HISTORY Procedure Laterality Date BREAST SURGERY HX Left 12/03/2024 BX OF BREAST; INCISIONAL Left 05/2024 BX OF BREAST; INCISIONAL Left 2021 EXCISION GANGLION WRIST DORSAL/VOLAR PRIMARY IANDD HEMATOMA SEROMA/FLUID COLLECTION 12/30/2021 left breast INCISION AND DRAINAGE PROCEDURE (W NOTE) Left 03/11/2022 breast PAST SURGICAL HISTORY OF LEFT ARM, CYST Removed PAST SURGICAL HISTORY OF LEEP PAST SURGICAL HISTORY OF 04/2012, 2016 left foot surgery TONSILLECTOMY PRIMARY/SECONDARY Tonsillectomy Social History Tobacco Use Smoking status: Every Day Current packs/day: 0.50 Average packs/day: 0.5 packs/day for 18.0 years (9.0 ttl pk-yrs) Types: Cigarettes Smokeless tobacco: Never Vaping Use Vaping status: Never Used Substance Use Topics Alcohol use: No Drug use: No FAMILY HISTORY Problem Relation Age of Onset Cancer Mother UTERINE Hypertension Mother Lipids Mother Lipids Father other (clot in heart) Father No Known Problems Sister No Known Problems Sister No Known Problems Brother Heart Maternal Grandmother ANGINA Hypertension Maternal Grandmother Diabetes Maternal Grandmother Dementia Maternal Grandmother No Known Problems Maternal Grandfather Hypertension Paternal Grandmother Seizures Daughter Aneurysm Maternal Aunt 2 aunts other (arteriovenous malformation) Maternal Aunt Breast Cancer Paternal Aunt Ovarian cancer No Family History The ROS, medical, surgical, family, and social history were reviewed by Betsy Jalloh MD ALLERGIES Allergen Reactions Erythromycin Base GI Upset Ketorolac Trometham* Rash Naproxen Rash Tramadol GI Upset Current Outpatient Medications Medication Sig albuterol HFA (VENTOLIN HFA) 90 mcg/actuation inhaler Inhale 2 Puffs as instructed every 4 hours as needed for wheezing/shortness of breath. sertraline (ZOLOFT) 50 mg tablet Take 1 tablet by mouth once daily. atorvastatin (LIPITOR) 80 mg tablet Take 1 tablet by mouth daily at bedtime. For cholesterol. cetirizine (ZYRTEC) 10 mg tablet Take 1 tablet by mouth once daily. fluticasone (FLONASE) 50 mcg/actuation nasal spray Use 2 Sprays in each nostril once daily. Rinse mouth after use. folic acid 1 mg tablet Take by mouth. takes 4 tabs once a day pyridoxine HCl, vitamin B6, (VITAMI (more content not included)... Normal [facility] BREAST LTD LTon 11-27 [facility] BREAST [facility] * * *Final Report* * * DATE OF EXAM: Nov 27 2024 1:14PM [id number] - [facility] US BREAST LTD LT / PROCEDURE REASON: Mass of upper inner quadrant of left breast * * * * Physician Interpretation * * * * [facility] [address] [facility] [place] [address] #[id number] - [facility] US BREAST LTD LT HISTORY: 44 year-old patient seen for diagnostic evaluation of Short term follow-up from a previous ultrasound in the left breast. Patient states no personal history of breast cancer. The patient has a family history of breast cancer. Per Dr. Jalloh's note, the patient is status post left breast I&D x2 in 2021, with recurrent drainage in 2023. She underwent repeat I&D on 08-28 with cultures growing Actinomyces. COMPARISON STUDIES: Mammogram dated 07/03/2024 ULTRASOUND TECHNIQUE: Targeted ultrasound of the indicated area was performed. Zazueta scale images were saved. ULTRASOUND FINDINGS: In the area of drainage in the 10:00 left breast/subareolar region, an irregular shaped fluid collection with significant peripheral vascularity and clear skin tract measures 1.5 x 0.6 x 0.9 cm. In the left axilla, a single mildly thickened lymph nodes are seen measuring up to 0.4 cm in maximum cortical thickness. IMPRESSION: Left 10:00/subareolar irregular shaped collection with skin tract consistent with chronic left breast actinomyces abscess/infection. Mildly thick left axillary lymph node consistent with reactive etiology. Recommend close clinical observation/management . If findings/symptoms do not improve/resolve with appropriate management, repeat imaging is recommended. The patient is under the care of Dr. Jalloh. BI-RADS Category 2: Benign Interpreting Radiologist: Haley Jon M.D. Electronically signed on: 11/27/2024 Mortgage Loan Specialist: JEFERSON Transcribe Date/Time: Nov 27 2024 1:09P Dictated by : HALEY JON MD This examination was interpreted and the report reviewed and electronically signed by: HALEY JON MD on Nov 27 2024 1:28PM EST [id number] Normal [facility] US Breast - left limitedon 0 11-27-2024 IMPRESSION: Left 10:00/subareolar irregular shaped collection with skin tract consistent with chronic left breast actinomyces abscess/infection. Mildly thick left axillary lymph node consistent with reactive etiology. Recommend close clinical observation/management . If findings/symptoms do not improve/resolve with appropriate management, repeat imaging is recommended. The patient is under the care of Dr. Jalloh. BI-RADS Category 2: Benign Interpreting Radiologist: Haley Jon M.D. Electronically signed on: 11/27/2024 Mortgage Loan Specialist: JEFERSON Transcrigrecia Date/Time: Nov 27 2024 1:09P Dictated by : HALEY JON MD This examination was interpreted and the report reviewed and electronically signed by: HALEY JON MD on Nov 27 2024 1:28PM EST Mindie * * *Final Report* * * DATE OF EXAM: Nov 27 2024 1:14PM [id number] [facility] / PROCEDURE REASON: Mass of upper inner quadrant of left breast * * * * Physician Interpretation * * * * [facility] [address] [place] [id number] #[id number] - [employer] [facility] LT HISTORY: 44 year-old patient seen for diagnostic evaluation of Short term follow-up from a previous ultrasound in the left breast. Patient states no personal history of breast cancer. The patient has a family history of breast cancer. Per Dr. Jalloh's note, the patient is status post left breast I&D x2 in 2021, with recurrent drainage in 2023. She underwent repeat I&D on 08-28 with cultures growing Actinomyces. COMPARISON STUDIES: Mammogram dated 07/03/2024 ULTRASOUND TECHNIQUE: Targeted ultrasound of the indicated area was performed. Zazueta scale images were saved. ULTRASOUND FINDINGS: In the area of drainage in the 10:00 left breast/subareolar region, an irregular shaped fluid collection with significant peripheral vascularity and clear skin tract measures 1.5 x 0.6 x 0.9 cm. In the left axilla, a single mildly thickened lymph nodes are seen measuring up to 0.4 cm in maximum cortical thickness. Mindie Provider, [facility] - 11/27/2024 * * *Final Report* * * DATE OF EXAM: Nov 27 2024 1:14PM [id number] [facility] LT / PROCEDURE REASON: Mass of upper inner quadrant of left breast * * * * Physician Interpretation * * * * [facility] [address] [facility] [place] [address] #[id number] - [facility] BREAST LTD LT HISTORY: 44 year-old patient seen for diagnostic evaluation of Short term follow-up from a previous ultrasound in the left breast. Patient states no personal history of breast cancer. The patient has a family history of breast cancer. Per Dr. Jalloh's note, the patient is status post left breast I&D x2 in 2021, with recurrent drainage in 2023. She underwent repeat I&D on 08-28 with cultures growing Actinomyces. COMPARISON STUDIES: Mammogram dated 07/03/2024 ULTRASOUND TECHNIQUE: Targeted ultrasound of the indicated area was performed. Zazueta scale images were saved. ULTRASOUND FINDINGS: In the area of drainage in the 10:00 left breast/subareolar region, an irregular shaped fluid collection with significant peripheral vascularity and clear skin tract measures 1.5 x 0.6 x 0.9 cm. In the left axilla, a single mildly thickened lymph nodes are seen measuring up to 0.4 cm in maximum cortical thickness. IMPRESSION IMPRESSION: Left 10:00/subareolar irregular shaped collection with skin tract consistent with chronic left breast actinomyces abscess/infection. Mildly thick left axillary lymph node consistent with reactive etiology. Recommend close clinical observation/management . If findings/symptoms do not improve/resolve with appropriate management, repeat imaging is recommended. The patient is under the care of Dr. Jalloh. BI-RADS Category 2: Benign Interpreting Radiologist: Haley Jon M.D. Electronically signed on: 11/27/2024 Mortgage Loan Specialist: JEFERSON Transcribe Date/Time: Nov 27 2024 1:09P Dictated by : HALEY JON MD This examination was interpreted and the report reviewed and electronically signed by: HALEY JON MD on Nov 27 2024 1:28PM EST [facility] Radiology Study observation (narrative) [facility] US Breast - left limitedOrde red By: [facility] Provider on 11-27-2024 [facility] CNOVon 11-20-2024 CNOV Office Visit (FAMPWS ) GRISELDA CONCEPCION ([id number]) 1980 F CHT Date Time Provider Department 11/20/24 4:00 PM EDGARD GÓMEZ During your visit today, we recorded the following information about you: Pulse Blood pressure Weight 78/minute 113/67 70 kg Edgard Gómez, LIQUOR GALLERY OPERATOR.BRAKE ADJUSTER 11/20/2024 3:54 PM Signed Chief Complaint Patient presents with: Cough Fatigue Head Congestion HPI Griselda Concepcion is a 44 year old female who presents here today for Above Complaints.. Patient presents for head congestion, fatigue, and cough x3 days. Reports she called off work yesterday and today. 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 Past medical history, appointments, medications, allergies reviewed. Previous Medical History PAST MEDICAL HISTORY Diagnosis Date Abnormal glandular Papanicolaou smear of cervix 02/18/2009 Abn. Pap smear (cervix), f/u with women's health Asthma Brain lesion Dr. 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 : 11/27/2022 Missed Reflex sympathetic dystrophy of other specified site left arm Seasonal allergies Thyroid disease Previous Surgical History PAST SURGICAL HISTORY Procedure Laterality Date BREAST SURGERY HX Left BX OF BREAST; INCISIONAL Left 05/2024 BX OF BREAST; INCISIONAL Left 2021 EXCISION GANGLION WRIST DORSAL/VOLAR PRIMARY IANDD HEMATOMA SEROMA/FLUID COLLECTION 12/30/2021 left breast INCISION AND DRAINAGE PROCEDURE (W NOTE) Left 03/11/2022 breast PAST SURGICAL HISTORY OF LEFT ARM, CYST Removed PAST SURGICAL HISTORY OF LEEP PAST SURGICAL HISTORY OF 04/2012, 2015 left foot surgery TONSILLECTOMY PRIMARY/SECONDARY Tonsillectomy Family History FAMILY HISTORY Problem Relation Age of Onset Cancer Mother UTERINE Hypertension Mother Lipids Mother Lipids Father other (clot in heart) Father No Known Problems Sister No Known Problems Sister No Known Problems Brother Heart Maternal Grandmother ANGINA Hypertension Maternal Grandmother Diabetes Maternal Grandmother Dementia Maternal Grandmother No Known Problems Maternal Grandfather Hypertension Paternal Grandmother Seizures Daughter Aneurysm Maternal Aunt 2 aunts other (arteriovenous malformation) Maternal Aunt Breast Cancer Paternal Aunt Ovarian cancer No Family History Patient Allergies ALLERGIES Allergen Reactions Erythromycin Base GI Upset Ketorolac Trometham* Rash Naproxen Rash Tramadol GI Upset Current Medications Current Outpatient Medications on File Prior to Visit Medication Sig albuterol HFA (VENTOLIN HFA) 90 mcg/actuation inhaler Inhale 2 Puffs as instructed every 4 hours as needed for wheezing/shortness of breath. sertraline (ZOLOFT) 50 mg tablet Take 1 tablet by mouth once daily. atorvastatin (LIPITOR) 80 mg tablet Take 1 tablet by mouth daily at bedtime. For cholesterol. cetirizine (ZYRTEC) 10 mg tablet Take 1 tablet by mouth once daily. fluticasone (FLONASE) 50 mcg/actuation nasal spray Use 2 Sprays in each nostril once daily. Rinse mouth after use. folic acid 1 mg tablet Take by mouth. takes 4 tabs once a day pyridoxine HCl, vitamin B6, (VITAMIN B-6 ORAL) Take by mouth. SUMAtriptan (IMITREX) 50 mg tablet Take 50 mg by mouth as needed. levETIRAcetam (KEPPRA) 750 mg tablet Take 1.5 tablets by mouth twice daily. No current facility-administered medications on file prior to visit. Social History Social History Tobacco Use Smoking status: Every Day Current packs/day: 0.50 Average packs/day: 0.5 packs/day for 18.0 years (9.0 ttl pk-yrs) Types: Cigarettes Smokeless tobacco: Never Tobacco comments: 3 cigarettes a day Vaping Use Vaping status: Never Used Substance Use Topics Alcohol use: No Drug use: No Review of Symptoms REVIEW OF SYSTEMS SEE HPI EXAM: BP 113/67 Pulse 78 Wt 70 kg (154 lb 5.2 oz) LMP 01/04/2024 (Approximate) BMI 23.01 kg/m? General Appearance: Well appearing, alert, in no acute distress, well-hydrated, well nourished. Nose/Sinuses: Positive findings: mucosa erythematous and swollen, purulent rhinorrhea. Oropharynx: Lips, mucosa, and tongue normal, teeth and gums normal, oropharynx normal. Lungs: Lungs clear to auscultation. No wheezing, rhonchi, rales.. Heart: RRR without murmur, gallop, or rubs. No ectopy. Health Maintenance List Spirometry Never done Anxi (more content not included)... Normal [facility] CNOVon 11-06-2024 CNOV Office Visit (AGGBR R) GRISEDLA CONCEPCION ([id number]) 1980 F T Date Time Provider Department 11/06/24 2:30 PM BETSY JALLOH [facility] During your visit today, we recorded the following information about you: Pulse Blood pressure 66/minute 106/57 Jennifer Rahman LPN 11/19/2024 8:16 AM Signed New patient being seen for history of breast cysts .Patient stated she had multiple biopsies and breast surgeries. Patient stated pain 11/12 NITZA Cole Amanda M, MD 11/19/2024 8:16 AM Signed Betsy Jalloh MD Breast [facility] [address] [place], [place] [id number] SUBJECTIVE Chief Complaint: Patient presents with: New Patient: Left breast cyst HPI Griselda Concepcion is a 44 year old female here today for evaluation of left breast infection. History of left breast IANDD x2 in December 2021. More recently,she presented in July 2024 for re-evaluation. Site of left breast draining off and on since 2021. Cultures from IANDD 08/06/24 returned staph hominis and schaalia turicensis (formerly actinomyces). She was prescribed 2 month course of amoxicillin and doxcycline. She was not able to tolerate antibiotics and presents today for re-evaluation. Last imaging was mammogram 07/03/24 that showed retraction of left nipple areolar complex with retroareolar thickening. Us showed 0.4 cm cyst at 10:00 1 cm from the nipple, BIRADS 2. Breast density BIRADS B. There are no exam notes on file for this visit. AGE AT [age][place] 12 AGE AT FIRST 32 FAMILY HISTORY OF BREAST CANCER Yes (IF YES) NUMBER OF FIRST DEGREE RELATIVES WITH BREAST CANCER no PREVIOUS BREAST BIOPSIES Yes (IF YES) PREVIOUS BREAST BIOPSY WITH ATYPICAL HYPERPLASIA No RACE JERARDO MODEL RISK 5 YEAR 2.7 JERARDO MODEL RISK LIFETIME 22.6 GENETIC TESTING no RISK REDUCTION OFFERED no HISTORY OF USING CONTROL PILLS Yes HISTORY OF USING HORMONE REPLACEMENT THERAPY No Review of Systems Constitutional: Negative for fever, malaise/fatigue and weight loss. Breast: See HPI PAST MEDICAL HISTORY Diagnosis Date Abnormal glandular Papanicolaou smear of cervix 02/18/2009 Abn. Pap smear (cervix), f/u with women's health Asthma Brain lesion Dr. 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 : 11/27/2022 Missed Reflex sympathetic dystrophy of other specified site left arm Seasonal allergies Thyroid disease PAST SURGICAL HISTORY Procedure Laterality Date BREAST SURGERY HX Left BX OF BREAST; INCISIONAL Left 05/2024 BX OF BREAST; INCISIONAL Left 2021 EXCISION GANGLION WRIST DORSAL/VOLAR PRIMARY IANDD HEMATOMA SEROMA/FLUID COLLECTION 12/30/2021 left breast INCISION AND DRAINAGE PROCEDURE (W NOTE) Left 03/11/2022 breast PAST SURGICAL HISTORY OF LEFT ARM, CYST Removed PAST SURGICAL HISTORY OF LEEP PAST SURGICAL HISTORY OF 04/2012, 2016 left foot surgery TONSILLECTOMY PRIMARY/SECONDARY Tonsillectomy Social History Tobacco Use Smoking status: Every Day Current packs/day: 0.50 Average packs/day: 0.5 packs/day for 18.0 years (9.0 ttl pk-yrs) Types: Cigarettes Smokeless tobacco: Never Tobacco comments: 3 cigarettes a day Vaping Use Vaping status: Never Used Substance Use Topics Alcohol use: No Drug use: No FAMILY HISTORY Problem Relation Age of Onset Cancer Mother UTERINE Hypertension Mother Lipids Mother Lipids Father other (clot in heart) Father No Known Problems Sister No Known Problems Sister No Known Problems Brother Heart Maternal Grandmother ANGINA Hypertension Maternal Grandmother Diabetes Maternal Grandmother Dementia Maternal Grandmother No Known Problems Maternal Grandfather Hypertension Paternal Grandmother Seizures Daughter Aneurysm Maternal Aunt 2 aunts other (arteriovenous malformation) Maternal Aunt Breast Cancer Paternal Aunt Ovarian cancer No Family History The ROS, medical, surgical, family, and social history were reviewed by Betsy Jalloh MD ALLERGIES Allergen Reactions Erythromycin Base GI Upset Ketorolac Trometham* Rash Naproxen Rash Tramadol GI Upset Current Outpatient Medications Medication Sig sertraline (ZOLOFT) 50 mg tablet Take 1 tablet by mouth once daily. atorvastatin (LIPITOR) 80 mg tablet Take 1 tablet by mouth daily at bedtime. For cholesterol. cetirizine (ZYRTEC) 10 mg tablet Take 1 tablet by (more content not included)... Normal [facility] Surgery Visit Reporton 09-11 Surgery Visit Report [facility] [address] [place] [address]. [address] [place] [address] OFFICE VISIT Date of Service: 09/11/24 MR#: [id number] Acct: [id number] Name: GRISELDA CONCEPCION Rep #: [id number] : 1980 Provider: Dr. Darian sheets MD Age/Sex: 44/F Location: [facility] Status: Signed Intake Vital Signs 08/06/24 08:15 Height 5 ft 8 in Intake Visit Reasons: BREAST CHECK Chief Complaint: breast check Is patient in pain?: No Allergies erythromycin base (Erythromycin Base) Allergy (Verified 09/11/24 14:47) Hives ketorolac tromethamine (From Toradol) Allergy (Verified 09/11/24 14:47) Rash naproxen (From Naprosyn) Allergy (Verified 09/11/24 14:47) Rash Medications ???Medication ???Instructions ???Recorded ???Confirmed ???Type albuterol sulfate 90 mcg/actuation 2 puff inhalation Q4H PRN PRN Sob 09/02/15 09/11/24 History aerosol inhaler (Ventolin HFA) /Or Wheezing cetirizine 10 mg capsule (Zyrtec) 10 mg PO DAILY 09/09/16 09/11/24 History folic acid 1 mg tablet 1 mg PO DAILY 09/09/16 09/11/24 History sertraline 50 mg tablet 50 mg PO DAILY 09/09/16 09/11/24 History atorvastatin 80 mg tablet 80 mg PO QHS 05/21/22 09/11/24 History fluticasone propionate 50 2 spray intranasal Q12H PRN 05/21/22 09/11/24 History mcg/actuation nasal allergy symptoms spray,suspension pyridoxine (vitamin B6) 250 mg 250 mg PO DAILY 05/21/22 09/11/24 History tablet sumatriptan succinate 50 mg tablet 50 mg PO DAILY 05/21/22 09/11/24 History amoxicillin 875 mg tablet 875 mg PO Q12H 7 weeks #98 tabs 08/14/24 09/11/24 Rx metronidazole 500 mg tablet 500 mg PO TID 7 days #21 tabs 09/10/24 09/11/24 Rx PFSH Medical History Hx LEEP (loop electrosurgical excision procedure), cervix, Hyperlipidemia GERD (gastroesophageal reflux disease) Depression Breast abscess RSD (reflex sympathetic dystrophy) History of sciatica Seizure disorder History of asthma Genital herpes Mental retardation Surgical History History of D C Status post incision and drainage ( 03/2022) History of surgery on arm Hx of toe surgery Family History Mother Uterine cancer Hypertension Hyperlipidemia Father Hyperlipidemia Pulmonary embolism and infarction Social History Smoking Status: Light Smoker (<10/day) alcohol intake: never substance use type: does not use caffeine: Yes what type of physical activity do you participate in: walking frequency: daily seatbelt use: always do you feel safe at home: Yes 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 She is status post I D in clinic on 08/07/2024 and was last seen 08/14/2024. She presents today's visit with her mother. She notes that the area of concern is still there but she admits that it is draining less. She complains that it is still sore. She confirms that she has been taking Augmentin faithfully but has not picked up the metronidazole that was added yesterday. Additionally, she shares that she is still smoking and has not committed to smoking cessation. Below is recapitulated from patient's prior visit for ease of review: Patient last seen 08/07/2024 for I D of left breast abscess after developing more soreness and warmth of that site. She presents today with her mother following that procedure. She shares that she is having ongoing drainage. She has noticed some improvement in the tenderness of her left breast but describes some persistent soreness and itching around the nipple. She confirms that she is still taking doxycycline but has not experienced any adverse side effects. ROS General General: Yes weight change; No appetite, fatigue, colon cancer, breast cancer or weakness HEENT HEENT: No difficulty swallowing, eye injury, eye surgery, swollen glands or hoarseness Endo Endocrine: No thyroid disease, diabetes mellitus, thyroid cancer, Hair loss, heat intolerance or cold intolerance Skin Skin: No rash or changing moles Breast Breast: Yes breast pain; No left breast lump, right breast lump, nipple discharge, abnormal mammogram, abnormal US or breast enlargement Musc Musculoskeletal: No back problems, arthritis, rheumatoid arthritis, gout or joint pain Cardio Cardiovascular: No murmur, pacemaker, heart disease, atrial fibrillation, high blood pressure, heart attack, heart stent, palpitations, shortness of breat with exertion or chest pain Psych Psychiatric: Yes depre (more content not included)... Normal [facility] Surgery Visit Reporton 08-14 Surgery Visit Report [facility] [address] [place] [address] OFFICE VISIT Date of Service: 08/14/24 MR#: [id number] Acct: [id number] Name: GRISELDA CONCEPCION Rep #: [id number] : 1980 Provider: Dr. Darian sheets MD Age/Sex: 44/F Location: [facility] Status: Signed Intake Vital Signs 08/06/24 08:15 Height 5 ft 8 in Intake Visit Reasons: breast chk Chief Complaint: breast check Is patient in pain?: No Allergies erythromycin base (Erythromycin Base) Allergy (Verified 08/14/24 08:46) Hives ketorolac tromethamine (From Toradol) Allergy (Verified 08/14/24 08:46) Rash naproxen (From Naprosyn) Allergy (Verified 08/14/24 08:46) Rash Medications ???Medication ???Instructions ???Recorded ???Confirmed ???Type albuterol sulfate 90 mcg/actuation 2 puff inhalation Q4H PRN PRN Sob 09/02/15 08/14/24 History aerosol inhaler (Ventolin HFA) /Or Wheezing cetirizine 10 mg capsule (Zyrtec) 10 mg PO DAILY 09/09/16 08/14/24 History folic acid 1 mg tablet 1 mg PO DAILY 09/09/16 08/14/24 History sertraline 50 mg tablet 50 mg PO DAILY 09/09/16 08/14/24 History atorvastatin 80 mg tablet 80 mg PO QHS 05/21/22 08/14/24 History fluticasone propionate 50 2 spray intranasal Q12H PRN 05/21/22 08/14/24 History mcg/actuation nasal allergy symptoms spray,suspension pyridoxine (vitamin B6) 250 mg 250 mg PO DAILY 05/21/22 08/14/24 History tablet sumatriptan succinate 50 mg tablet 50 mg PO DAILY 05/21/22 08/14/24 History doxycycline monohydrate 100 mg 100 mg PO BID 10 days #20 caps 08/09/24 08/14/24 Rx capsule amoxicillin 875 mg tablet 875 mg PO Q12H 7 weeks #98 tabs 08/14/24 08/14/24 Rx PFSH Medical History Hx LEEP (loop electrosurgical excision procedure), cervix, Hyperlipidemia GERD (gastroesophageal reflux disease) Depression Breast abscess RSD (reflex sympathetic dystrophy) History of sciatica Seizure disorder History of asthma Genital herpes Mental retardation Surgical History History of D C Status post incision and drainage ( 03/2022) History of surgery on arm Hx of toe surgery Family History Mother Uterine cancer Hypertension Hyperlipidemia Father Hyperlipidemia Pulmonary embolism and infarction Social History Smoking Status: Light Smoker (<10/day) alcohol intake: never substance use type: does not use caffeine: Yes what type of physical activity do you participate in: walking frequency: daily seatbelt use: always do you feel safe at home: Yes 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 She presents today with her mother following that procedure. She shares that she is having ongoing drainage. She has noticed some improvement in the tenderness of her left breast but describes some persistent soreness and itching around the nipple. She confirms that she is still taking doxycycline but has not experienced any adverse side effects. Below is recapitulated from patient's prior visit for ease of review: Patient is a 44 y/o F who presented to the office as a walk-in secondary to the cyst on her left breast was full. Patient states she was evaluated by Dr. Goyal at the beginning of July. She notes the cyst was not full at that time. She notes a culture was obtained as it was draining very little fluid at that time. She notes being placed on antibiotics, which she felt did not help. She notes being told to come back to the office when the cyst was full. She denies any fever. She notes the area is not draining. She notes if she were to squeeze the cyst, she would be able to express some drainage. She notes the cyst is tender. ROS General General: Yes weight change; No appetite, fatigue, colon cancer, breast cancer or weakness HEENT HEENT: No difficulty swallowing, eye injury, eye surgery, swollen glands or hoarseness Endo Endocrine: No thyroid disease, diabetes mellitus, thyroid cancer, Hair loss, heat intolerance or cold intolerance Skin Skin: No rash or changing moles Breast Breast: Yes breast pain; No left breast lump, right breast lump, nipple discharge, abnormal mammogram, abnormal US or breast enlargement Musc Musculoskeletal: No back problems, arthritis, rheumatoid arthritis, gout or joint pain Cardio Cardiovascular: No murmur, pacemaker, heart disease, atrial fibrillation, high blood pressure, heart attack, heart stent, palpita (more content not included)... [facility] Culture, Anaerobic [facility]-12-2024 CUAN #1 Studies have confirmed that Anaerobic Gram Positive Cocci are routinely SUSCEPTABLE to Penicillin and generally susceptible to Beta-lactams and Beta-lactamase inhibitors, Cephalosporins, Carbapenems and Metronidazole. They are showing increased RESISTANCE to Clindamycin Bacteria Spec Anaerobe Cult #2 Clostridium perfringens is generally SUSCEPTIBLE to Penicillin, Metronidazole, and Meropenem. It is showing increasing RESISTANCE to Clindamycin and Tetracycline. Bacteria Spec Anaerobe Cult Clostridium species other than perfringens are generally SUSCEPTIBLE to Piperacillin, Beta-lactams and Beta-lactamase inhibitors, Carbapenems, Metronidazole and Vancomycin. They are generally RESISTANT to Ampicillin, Aminoglycosides, Trimethoprim-sulfameth oxazole, and Clindamycin. Bacteria Spec Anaerobe Cult Copy of report sent to Infection Control Printer [id number] 08/22/24 0622 BLUCAS. Anaerobic cocci Clostridium group * This is an amended result. * A prior result that was reported as final has been changed. 08/18/24 1553 by GRACIA [facility] Comment on above: Performed By: #### M 100.3000, M100.2000, M100.4001 #### [facility] [address] [place], [place], [address] Wound Cultureon 08-09-2024 WC Previously Actinomyc es turicensis. If Gram Positive Quinn susceptibility studies are desired, contact the Microbiology Laboratory within 48 hours [phone]. Wound Culture Schaalia turicensis Amount Growth 1+ [facility] Comment on above: Performed By: #### M 100.3000, M100.2000, M100.4001 #### [facility] [address] [place], [address] Bacteria identified Anaer cx Nom (Unsp spec)Ordered By: Betsy Min on 08-06-2024 Anaerobic Culture Anaerobic cocci Abnormal [facility] Anaerobic Culture Clostridium group Abnormal [facility] Gram Stainon 08-06-2024 GS Gram Stain 3+ White Blood Cells No organisms seen Normal [facility] Comment on above: Performed By: #### M 100.3000, M100.2000, M100.4001 #### [facility] [address] [place], [place], [address] Gram stainOrdered By: Betsy Min on 08-06-2024 Microscopic observation Gram stain Nom (Unsp spec) [facility] Routine wound cultureOrdered By: Betsy Min on 08-06-2024 Wound Culture Schaalia turicensis Abnormal [facility] Surgery Visit Reporton 08-06 Surgery Visit Report [facility] [address] [place], [place] [address] OFFICE VISIT Date of Service: 08/06/24 MR#: [id number] Acct: [id number] Name: GRISELDA CONCEPCION Rep #: [id number] : 1980 Provider: TIGRE dsouza Age/Sex: 44/F Location: [facility] Status: Signed with Addenda ADDENDUM by TIGRE Min on 08/07/24 at 1334 Intake Chief Complaint: breast cyst Allergies erythromycin base (Erythromycin Base) Allergy (Verified 08/06/24 08:28) Hives ketorolac tromethamine (From Toradol) Allergy (Verified 08/06/24 08:28) Rash naproxen (From Naprosyn) Allergy (Verified 08/06/24 08:28) Rash Assessment and Plan Assessment and Plan (1) Left breast abscess: Status: Acute Plan: Culture results from 07/10/24 visit returned as Staphylococcus hominis hominis and Schaalia turicensis Orders: Orders Culture, Deep Wound 08/06/24 N61.1 - Abscess of the breast and nipple Incision and Drainage 08/06/24 N61.1 - Abscess of the breast and nipple 08/07/24 1334 Date Betsy Min PA-C cc: * Signed Intake Vital Signs 07/10/24 14:51 08/06/24 08:15 Height 5 ft 8 in 5 ft 8 in Weight: 166 lb BMI 25.2 BP 109/71 Blood Pressure Location Rt brachial Position Sitting Respiration 17 Pulse 81 Pulse Source Monitor Pulse Oximetry (%) 95 Oxygen Delivery Method room air Intake Visit Reasons: BREAST CYST Chief Complaint: breast cyst Allergies erythromycin base (Erythromycin Base) Allergy (Verified 08/06/24 08:28) Hives ketorolac tromethamine (From Toradol) Allergy (Verified 08/06/24 08:28) Rash naproxen (From Naprosyn) Allergy (Verified 08/06/24 08:28) Rash PFSH Medical History Hx LEEP (loop electrosurgical excision procedure), cervix, Hyperlipidemia GERD (gastroesophageal reflux disease) Depression Breast abscess RSD (reflex sympathetic dystrophy) History of sciatica Seizure disorder History of asthma Genital herpes Mental retardation Surgical History History of D C Status post incision and drainage ( 03/2022) History of surgery on arm Hx of toe surgery Family History Mother Uterine cancer Hypertension Hyperlipidemia Father Hyperlipidemia Pulmonary embolism and infarction Social History Smoking Status: Light Smoker (<10/day) alcohol intake: never substance use type: does not use caffeine: Yes what type of physical activity do you participate in: walking frequency: daily seatbelt use: always do you feel safe at home: Yes 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 Patient states she was evaluated by Dr. Goyal at the beginning of July. She notes the cyst was not full at that time. She notes a culture was obtained as it was draining very little fluid at that time. She notes being placed on antibiotics, which she felt did not help. She notes being told to come back to the office when the cyst was full. She denies any fever. She notes the area is not draining. She notes if she were to squeeze the cyst, she would be able to express some drainage. She notes the cyst is tender. Exam Chest Other: Left breast, medial to the nipple- small, tender, erythematous cyst with a yellow eschar noted over top of the cyst. No active drainage noted. Incision and drainage with culture was recommended. Office Procedures I D Provider Documentation Provider Documentation: Procedure note Procedure: Incision and Drainage of infected left breast abscess Permit: Procedure, benefits, risks (include those of bleeding, infection, injury, anesthesia, and allergic reaction), and alternatives explained to the patient who voiced understanding of the information. Their questions were sought and answered. Patient agreed to proceed with the incision and drainage of infected left breast abscess. Permit signed and in chart. Indication: Infected left breast abscess medial to the nipple Physician: Betsy Min PA-C Nurse: Manda Joseph LPN Description: Patient was positioned laying on the procedure table supine. Area prepped with Betadine and draped in a sterile fashion. Local anesthetic administered with 5 cc of 0.5% Marcaine and 1% lidocaine. A linear incision was made and a small amount of purulent fluid was expressed. Cavity was probed to break up any pocket (more content not included)... Normal [facility] Culture, Anaerobic Any [facility] kim 07-16-2024 CUAN Anaerobic non-spore forming gram positive rods are usually SUSCEPTIBLE to Beta-lactams and Beta-lactamase inhibitors, Linezolid, and Daptomycin. They are usually RESISTANT to Metronidazole. Sim de guzmannsis Normal [facility] Comment on above: Performed By: #### M 100.2000, M100.3000, M100.4001 #### [facility] [address] [place], [address] Wound Cultureon 07-14-2024 WC #2 Organism is too fastidious for routine susceptibility studies. Staphylococcus hominis hominis Amount Growth Very Rare Schaalia turicensis Schaalia turicensis Staphylococcus hominis hominis: REACTION cefOXitin Susc Islt NEG Clindamycin Islt AUSTYN 0.25 Clindamycin.induced Susc Islt NEG Erythromycin Islt AUSTYN >=8 R Gentamicin Islt AUSTYN <=0.5 S Oxacillin Susc Islt <=0.25 S Tetracycline Islt AUSTYN <=1 S Vancomycin Islt AUSTYN <=0.5 S Normal [facility] Comment on above: Performed By: #### M 100.2000, M100.3000, M100.4001 #### [facility] [address] [place], [address] Gram Stainon 07-11-2024 GS Gram Stain Rare Red Blood Cells No organisms seen Normal [facility] Comment on above: Performed By: #### M 100.1999, M100.3000, M100.4001 #### [facility] [address] [place], [place], [address] Surgery Visit Reporton 07-10 Surgery Visit Report [facility] [address] [place], [place] [address] OFFICE VISIT Date of Service: 07/10/24 MR#: [id number] Acct: [id number] Name: GRISELDA CONCEPCION Rep #: [id number] : 1980 Provider: Dr. Darian sheets MD Age/Sex: 44/F Location: [facility] Status: Signed Intake Vital Signs 06/14/24 15:54 07/10/24 14:51 Height 5 ft 8 in 5 ft 8 in Weight: 166 lb BMI 25.2 BP 109/71 Blood Pressure Location Rt brachial Position Sitting Respiration 17 Pulse 81 Pulse Source Monitor Pulse Oximetry (%) 95 Oxygen Delivery Method room air Intake Visit Reasons: NON HEALING BREAST CYST Chief Complaint: non healing breast cyst Is patient in pain?: No Allergies erythromycin base (Erythromycin Base) Allergy (Verified 07/10/24 14:52) Hives ketorolac tromethamine (From Toradol) Allergy (Verified 07/10/24 14:52) Rash naproxen (From Naprosyn) Allergy (Verified 07/10/24 14:52) Rash Medications ???Medication ???Instructions ???Recorded ???Confirmed ???Type albuterol sulfate 90 mcg/actuation 2 puff inhalation Q4H PRN PRN Sob 09/02/15 07/10/24 History aerosol inhaler (Ventolin HFA) /Or Wheezing cetirizine 10 mg capsule (Zyrtec) 10 mg PO DAILY 09/09/16 07/10/24 History folic acid 1 mg tablet 1 mg PO DAILY 09/09/16 07/10/24 History sertraline 50 mg tablet 50 mg PO DAILY 09/09/16 07/10/24 History atorvastatin 80 mg tablet 80 mg PO QHS 05/21/22 07/10/24 History fluticasone propionate 50 2 spray intranasal Q12H PRN 05/21/22 07/10/24 History mcg/actuation nasal allergy symptoms spray,suspension pyridoxine (vitamin B6) 250 mg 250 mg PO DAILY 05/21/22 07/10/24 History tablet sumatriptan succinate 50 mg tablet 50 mg PO DAILY 05/21/22 07/10/24 History PFSH Medical History Hx LEEP (loop electrosurgical excision procedure), cervix, Hyperlipidemia GERD (gastroesophageal reflux disease) Depression Breast abscess RSD (reflex sympathetic dystrophy) History of sciatica Seizure disorder History of asthma Genital herpes Mental retardation Surgical History History of D C Status post incision and drainage ( 03/2022) History of surgery on arm Hx of toe surgery Family History Mother Uterine cancer Hypertension Hyperlipidemia Father Hyperlipidemia Pulmonary embolism and infarction Social History Smoking Status: Light Smoker (<10/day) alcohol intake: never substance use type: does not use caffeine: Yes what type of physical activity do you participate in: walking frequency: daily seatbelt use: always do you feel safe at home: Yes 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 Her last visit 07/06/2022 when she was recommended a 1.5-week follow-up but she never kept her outpatient follow-up. She is referred from obstetrics and gynecology after complaining of her chronically draining left breast wound. She states that she had become discouraged with the lack of progress and decided it was something she would simply have to deal with. It is recalled from her 05/21/2022 initial consultation visit that patient underwent formal I D procedure with Dr. Ivy on 03/11/2022 after an aspiration procedure by Dr. Weinstein in December of that year. Ms. Concepcion reports that on an almost weekly basis she will experience redness of her breast and then it will spontaneously drain. She notes that it drained most recently last evening with a yellow discharge that then becomes bloody. Ms. Concepcion still uses tobacco but shares that she is down to half pack per day. She denies any awareness of any other immune deficiencies. She denies any awareness of elevated blood sugars or concern for diabetes. She has had no significant infections since our last encounter 2 years ago. She denies any use of anticoagulation. It is her mother, who accompanies her today's visit, that raises the issue of some recent unintentional weight loss. Patient is unable to quantify how much but does not deny this weight loss. She does state that she walks everywhere and this may be part of that weight loss. Patient completed diagnostic mammography which showed retraction of the left alveolar nipple complex with thickening of the areola. This most likely represents an area of prior abscess and scarring. Correlation with ultrasound recommended. This was read as a BI-RADS 0. Follow-up ultrasound obtained on 10 (more content not included)... Normal [facility] Breast Limited Unilateralon 07-03-2024 Breast Limited Unilateral [facility] Services [address] [place], [place] [id number] Breast Limited Unilateral MR#: [id number] Acct: [id number] Name: GRISELDA CONCEPCION Rep #: [id number] : 1980 F 44 From: Ron gallagher MD PCP: Dr. Adrian Ley MD Status: REG CLI Study: Breast Limited Unilateral Date of Exam: Exam# [id number] Ordering Dr: Crystal Villasenor CNM [id number] STUDY: ULTRASOUND BREAST - LEFT REASON FOR EXAM: Female, 44 years old. Left breast swelling. History of prior abscess drainage. TECHNIQUE: Axial and longitudinal images of the LEFT breast were performed with a high resolution ultrasound transducer. # OF IMAGES: 8 COMPARISON: Comparison is made with prior mammogram done earlier today. FINDINGS: LEFT Breast: The left periareolar region was examined with ultrasound. There is a 4 mm x 4 mm x 2 mm cyst at the 10:00 position of the breast at 1 cm from the nipple. US/Breast Limited Unilateral IMPRESSION: 4 mm x 4 mm x 2 mm cyst at the 10:00 position of the breast at 1 cm from the nipple. ASSESSMENT CATEGORY: BIRADS Category 2: Benign. A letter regarding these results will be sent to the patient by the facility within 30 days. Electronically Signed: Ron Story MD at 12:46 EDT , CC: MAXIM Villasenor; Dr. Adrian Ley MD Mortgage Loan Specialist: Signed Normal [facility] DIAG MAMM W/CAD, BILATon DIAG MAMM W/CAD, [facility] Imaging Services [address] [place] [address] DIAG MAMM W/CAD, BILAT MR#: [id number] Acct: [id number] Name: GRISELDA CONCEPCION Rep #: [id number] : 1980 F 44 From: Ron gallagher MD PCP: Dr. Adrian Ley MD Status: [facility] CL Study: DIAG MAMM W/CAD, BILAT Date of Exam: 07/03/24 Exam# [id number] Ordering Dr: Crystal Villasenor [facility] [id number] MAMMOGRAPHY - BILATERAL DIAGNOSTIC REASON FOR EXAM: Female, 44 years old. History of prior left breast abscess and drainage. PERTINENT HISTORY: Non-contributory. TECHNIQUE: Digital bilateral breast luis alfredo (3D mammographic acquisition) in the CC and MLO projections. 2-D mediolateral oblique (MLO) and craniocaudad (CC) views of both breasts were obtained. CAD: Full Field Digital Mammography with Computer Added Detection was performed. COMPARISON: None. Baseline examination. FINDINGS: Breast Composition: There are scattered areas of fibroglandular density. There are no dominant masses or suspicious calcifications. There is retraction of the left areolar nipple complex. There appears to be thickening of the areolar region. Correlation with ultrasound is recommended. No other significant abnormalities are identified. BI/DIAG MAMM W/CAD, BILAT IMPRESSION: Retraction of the left alveolar nipple complex with thickening of the areola. This most likely represents the area of prior abscess and scarring. Correlation with ultrasound recommended. ASSESSMENT CATEGORY: BIRADS Category 0: Incomplete. Need additional imaging evaluation. A letter regarding these results will be sent to the patient by the facility within 30 days. Approximately 10% of breast cancers are not detected by mammography. A normal mammogram should not delay biopsy of a clinically suspicious abnormality. Electronically Signed: Ron Story MD at 11:46 EDT , CC: MAXIM Villasenor; Dr. Adrian Ley MD Mortgage Loan Specialist: Signed Normal [facility] Office Visit Reporton 06-14-2024 [facility] Office Visit Report [facility] [address], [address] [place] [address] OFFICE VISIT Date of Service: 06/14/24 MR#: [id number] Acct: [id number] Name: GRISELDA CONCEPCION Rep #: [id number] : 1980 Provider: MAXIM Esposito ams Age/Sex: 44/F Location: [facility] Status: Signed Intake Vital Signs 06/28/23 08:15 06/10/24 12:54 06/14/24 15:53 06/14/24 15:54 Height 5 ft 8 in 5 ft 8 in 5 ft 8 in 5 ft 8 in Weight: 166 lb 8 oz BMI 25.3 BP 124/80 H 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 Is patient in pain?: No Allergies erythromycin base (Erythromycin Base) Allergy (Verified 06/14/24 15:52) Hives ketorolac tromethamine (From Toradol) Allergy (Verified 06/14/24 15:52) Rash naproxen (From Naprosyn) Allergy (Verified 06/14/24 15:52) Rash Medications ???Medication ???Instructions ???Recorded ???Confirmed ???Type albuterol sulfate 90 mcg/actuation 2 puff inhalation Q4H PRN PRN Sob 09/02/15 06/14/24 History aerosol inhaler (Ventolin HFA) /Or Wheezing cetirizine 10 mg capsule (Zyrtec) 10 mg PO DAILY 09/09/16 06/14/24 History folic acid 1 mg tablet 1 mg PO DAILY 09/09/16 06/14/24 History sertraline 50 mg tablet 50 mg PO DAILY 09/09/16 06/14/24 History atorvastatin 80 mg tablet 80 mg PO QHS 05/21/22 06/14/24 History fluticasone propionate 50 2 spray intranasal Q12H PRN 05/21/22 06/14/24 History mcg/actuation nasal allergy symptoms spray,suspension pyridoxine (vitamin B6) 250 mg 250 mg PO DAILY 05/21/22 06/14/24 History tablet sumatriptan succinate 50 mg tablet 50 mg PO DAILY 05/21/22 06/14/24 History Post menopausal: No Patient : No : No PFSH Medical History Hx LEEP (loop electrosurgical excision procedure), cervix, Hyperlipidemia GERD (gastroesophageal reflux disease) Depression Breast abscess RSD (reflex sympathetic dystrophy) History of sciatica Seizure disorder History of asthma Genital herpes Mental retardation Surgical History History of D C Status post incision and drainage ( 03/2022) History of surgery on arm Hx of toe surgery Family History Mother Uterine cancer Hypertension Hyperlipidemia Father Hyperlipidemia Pulmonary embolism and infarction Social History Smoking Status: Light Smoker (<10/day) alcohol intake: never substance use type: does not use caffeine: Yes what type of physical activity do you participate in: walking frequency: daily seatbelt use: always do you feel safe at home: Yes additional social history: Gloria Farmer History 3 Elective abortions Hx Para 1 Spontaneous abortions 2 Hx # Term Pregnancies Ectopic pregnancies Hx # Pregnancies Multiple births # of living children Past Pregnancies Del. Date Name GA/Weeks Outcome Route Bth Weight [facility] Encounter for routine gynecological examination Details: GRISELDA CONCEPCION is a 44 year old who presents for annual exam. has had a cyst on her left breast that will get inflamed and start draining multiple times a year for about 3 years. has not had a mammogram for this. has had it cultured before but no resolution with the issue. Last PAP: 2021 History of abnormal PAP: nl Last mammogram: never History of abnormal mammogram: NA Colon cancer screening: age 47 Other preventative health care screenings: PCP Female Reproductive History Last Menstrual Period: 05/06/24 Cycle Length: 21-35 Bleeding Duration: 7 Questions: metorrhagia: No, sexually active: Yes, dyspareunia: No and PCB: No ROS Const Constitutional: Reports system reviewed and no additional complaints, except as documented Cardio Card: Reports system reviewed and no additional complaints, except as documented Resp Resp: Reports system reviewed and no additional complaints, except as documented GI GI: Reports system reviewed and no additional complaints, except as documented : Reports system reviewed and no additional complaints, except as documented; Denies difficulty voiding, dysuria or urinary frequency Skin Skin/Breast: Reports system reviewed and no additional complaints, except as documented Neuro Neuro: Reports system reviewed and no additional complaints, except as documented Psych Psych: Reports system reviewed and no additional complaints, except as documented; Denies anhedonia, anxiety or depression Exam Const General: cooperative, healthy appearing, comfortable and no acute distress Orientation: alert, awake an (more content not included)... Normal [facility] Emergency Department Summary on 06-10-2024 Emergency Department Summary [facility] Medical Records Department [address] [place] [address] Emergency Department Summary 06/10/24 MR#: [id number] Acct: [id number] Name: GRISELDA CONCEPCION Rep #: [id number] : 1980 44 From: Nora DOLL PCP: Dr. Adrian Ley MD Status:DEP ER Location: ED HPI History of Present Illness Chief Complaint: Back Narrative Narrative: Patient presenting today with an acute exacerbation of her chronic low back pain that she has had since last night. She reports that she has had pain similar to this in the past. She denies any injury to her back, bowel/bladder incontinence, saddle paresthesia, fevers, chills, history of IV drug use, leg weakness, or urinary symptoms. She has been taking ibuprofen with minimal relief. [facility] Medical History Hx LEEP (loop electrosurgical excision procedure), cervix, Hyperlipidemia GERD (gastroesophageal reflux disease) Depression Breast abscess RSD (reflex sympathetic dystrophy) History of sciatica Seizure disorder History of asthma Genital herpes Mental retardation Home Medications ???Medication ???Instructions ???Recorded ???Last Taken ???Type albuterol sulfate 90 mcg/actuation 2 puff inhalation Q4H PRN PRN Sob 09/02/15 Unknown History aerosol inhaler (Ventolin HFA) /Or Wheezing cetirizine 10 mg capsule (Zyrtec) 10 mg PO DAILY 09/09/16 Unknown History folic acid 1 mg tablet 1 mg PO DAILY 09/09/16 Unknown History sertraline 50 mg tablet 50 mg PO DAILY 09/09/16 Unknown History atorvastatin 80 mg tablet 80 mg PO QHS 05/21/22 Unknown History fluticasone propionate 50 2 spray intranasal Q12H PRN 05/21/22 Unknown History mcg/actuation nasal allergy symptoms spray,suspension levetiracetam 1,000 mg tablet 1,500 mg PO BID 05/21/22 Unknown History pyridoxine (vitamin B6) 250 mg 250 mg PO DAILY 05/21/22 Unknown History tablet sumatriptan succinate 50 mg tablet 50 mg PO DAILY 05/21/22 Unknown History ibuprofen 600 mg tablet 600 mg PO Q6H PRN PRN pain #20 06/12/23 Unknown Rx TABLETS hydrocodone-acetaminop hen 5-325mg 1 tab PO Q4H PRN PRN Pain 2 days 06/10/24 Unknown Rx 5mg-325mg #6 TABLETS tizanidine 2 mg tablet 2 mg PO Q8H PRN muscle spasticity 06/10/24 Unknown Rx #15 tabs Allergy/AdvReac Type Severity Reaction Status Date / Time erythromycin base Allergy Hives Verified 06/10/24 12:55 (Erythromycin Base) ketorolac tromethamine (From Allergy Rash Verified 06/10/24 12:55 Toradol) naproxen (From Naprosyn) Allergy Rash Verified 06/10/24 12:55 Family History Mother Uterine cancer Hypertension Hyperlipidemia Father Hyperlipidemia Pulmonary embolism and infarction Surgical History History of D C Status post incision and drainage ( 03/2022) History of surgery on arm Hx of toe surgery Social History Smoking Status: Light Smoker (<10/day) alcohol intake: never substance use type: does not use caffeine: Yes what type of physical activity do you participate in: walking frequency: daily seatbelt use: always do you feel safe at home: Yes additional social history: YamilethniyaDayana Darian YNES QUICK ED Constitutional Constitutional ED: Denies chills or fever(s) Cardiovascular Cardiovascular: Denies chest pain Respiratory/Chest Respiratory/Chest: Denies dyspnea Gastrointestinal Gastrointestinal: Denies abdominal pain, nausea or vomiting Genitourinary Genitourinary ED: Denies dysuria, hematuria or urinary urgency Musculoskeletal Musculoskeletal: Reports back pain Integumentary Denies rash Neurologic Neurologic: Denies paresthesias or weakness EXAM Physical Exam Const Vital Signs: 06/10/24 12:54 06/10/24 14:24 Temperature 98.5 F 97.1 F L Temperature Source Temporal Pulse Rate 80 61 Respiratory Rate 14 18 Blood Pressure 126/74 H 116/78 Blood Pressure Mean 91 90 Pulse Ox 98 100 Oxygen Delivery Method Room Air Positive well nourished, well developed and no apparent distress General Appearance ED: well developed HEENT Reports normocephalic and head/scalp atraumatic Mouth ED: Yes moist mucous membranes normal Eyes PERRL and EOMs intact bilaterally Neck full ROM and supple Chest Wall inspection of chest normal Resp normal respiratory effort and clear to auscultation bilaterally Cardio regular rate and regular rhythm GI soft to palpation, non-tender, non-distended and no masses Back/Spine normal ROM and normal to inspection Back/Spine Narrative: Minimal lumbar spinal tenderness to palpation, right and left lumbar pa (more content not included)... Normal [facility] 05-21-2024 [facility] Office Visit (UCWSTR ) GRISELDA CONCEPCION ([id number]) 1980 F CHT Date Time Provider Department 05/21/24 6:15 PM MIRIAN LEPE WSTR During your visit today, we recorded the following information about you: Temperature Pulse Respiration Blood pressure 98.6 degrees 74/minute 16/minute 118/72 Weight 75.3 kg Mirian Lepe APRN.CNP 05/21/2024 6:35 PM Signed CC: Patient presents with: Sinusitis: X 1 week HPI: Griselda Concepcion is a 44 year old female who presents to the office with complaint of head congestion, cough, nonproductive, and sinus symptoms for a week. Symptoms are worsening Associated symptoms includes wheezing. Denies fever, nausea, vomiting , and diarrhea. Treatments tried include nothing so far. with no relief of symptoms. Sick contacts: unknown. History of asthma, frequent episodes of bronchitis, chronic bronchitis, bronchiectasis or COPD: No Smoker: No Seasonal/environmental allergies: No The ROS is otherwise negative. The patient's pmh, medications, allergies, and past visits are reviewed. PHYSICAL EXAM: BP 118/72 Pulse 74 Temp 37 ?C (98.6 ?F) (Left Tympanic) Resp 16 Wt 75.3 kg (166 lb 0.1 oz) LMP 01/04/2024 (Approximate) SpO2 96% BMI 24.76 kg/m? General appearance: alert, cooperative, pleasant, in no acute distress Head: Normocephalic Eyes: EOM's intact, conjunctiva pink and moist, no icterus, sclera white, non-injected Ears: Right ear: External ear/canal- Normal, TM - clear with good landmarks. Left ear: External ear/canal- Normal, TM - clear with good landmarks Oropharynx:moist without lesions Heart: Negative. RRR without obvious murmur, gallop, or rubs. No ectopy. Lungs: clear to auscultation, without rales or wheeze, good air exchange PAST MEDICAL HISTORY Diagnosis Date Abnormal glandular Papanicolaou smear of cervix 02/18/2009 Abn. Pap smear (cervix), f/u with women's health Asthma Brain lesion Dr. 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 : 11/27/2022 Missed Reflex sympathetic dystrophy of other specified site left arm Seasonal allergies Thyroid disease PAST SURGICAL HISTORY Procedure Laterality Date EXCISION GANGLION WRIST DORSAL/VOLAR PRIMARY IANDD HEMATOMA SEROMA/FLUID COLLECTION 12/30/2021 left breast INCISION AND DRAINAGE PROCEDURE (W NOTE) Left 03/11/2022 breast PAST SURGICAL HISTORY OF LEFT ARM, CYST Removed PAST SURGICAL HISTORY OF LEEP PAST SURGICAL HISTORY OF 04/2012, 2015 left foot surgery TONSILLECTOMY PRIMARY/SECONDARY Tonsillectomy ALLERGIES Erythromycin Base, Ketorolac Tromethamine, Naproxen, and Tramadol MEDICATIONS albuterol HFA (VENTOLIN HFA) 90 mcg/actuation inhaler Inhale 2 Puffs as instructed every 4 hours as needed for wheezing/shortness of breath. sertraline (ZOLOFT) 50 mg tablet Take 1 tablet by mouth once daily. atorvastatin (LIPITOR) 80 mg tablet Take 1 tablet by mouth daily at bedtime. For cholesterol. cetirizine (ZYRTEC) 10 mg tablet Take 1 tablet by mouth once daily. fluticasone (FLONASE) 50 mcg/actuation nasal spray Use 2 Sprays in each nostril once daily. Rinse mouth after use. folic acid 1 mg tablet Take by mouth. takes 4 tabs once a day pyridoxine HCl, vitamin B6, (VITAMIN B-6 ORAL) Take by mouth. SUMAtriptan (IMITREX) 50 mg tablet Take 50 mg by mouth as needed. levETIRAcetam (KEPPRA) 750 mg tablet Take 1.5 tablets by mouth twice daily. predniSONE (DELTASONE) 10 mg tablet Take 4 tabs daily for 3 days, then 2 tabs daily for 3 days, then 1 tab daily for 3 days with food. (Patient not taking: Reported on 04/05/2024) fluticasone (FLONASE) 50 mcg/actuation nasal spray Use 2 Sprays in each nostril once daily. Rinse mouth after use. (Patient not taking: Reported on 04/05/2024) FAMILY HISTORY Problem Relation Age of Onset Cancer Mother UTERINE Hypertension Mother Lipids Mother Lipids Father other (clot in heart) Father No Known Problems Sister No Known Problems Sister No Known Problems Brother Heart Maternal Grandmother ANGINA Hypertension Maternal Grandmother Diabetes Maternal Grandmother Dementia Maternal Grandmother No Known Problems Maternal Grandfather Hypertension Paternal Grandmother Seizures Daughter Aneurysm Maternal Aunt 2 aunts other (arteriovenous malformation) Maternal Aunt Social History Tobacco Use Smoking status: Every Day Current packs/day: 0.50 (more content not included)... Normal [facility] CNOVon 04-05-2024 CNOV Office Visit (PODIWS ) GRISELDA CONCEPCION ([id number]) 1980 F T Date Time Provider Department 04/05/24 10:30 AM JOSEY CUETO PODIWS During your visit today, we recorded the following information about you: Betsy Snowden, RN 04/05/2024 11:48 AM Signed Patient presents with: Left Great Toe - Established Patient, Ingrown Toenail Patient presents for possible nail infection. States a few days ago she noticed darkness under nail. She trimmed her nail and clearish liquid came out. States that she had worn some shoes that were too small prior to this. Josey Cueto 04/05/2024 11:48 AM Signed Initial Podiatric Office Visit: Chief Complaint: This 44 year old female who presents with chief complaint:left great toenail infection HPI Patient presents to clinic for evaluation of left great toe. Has noticed that her left great toe began draining recently States this started after starting a new job and she was wearing small fitting shoes. She trimmed the nail Clear fluid was expressed Denies any redness or pus Has no other complaints Smokes 1/2 pack of cigarettes/day. PAIN EVALUATION No data found in the last 1 encounters. Hemoglobin A1C (%) Date Value 11/22/2019 5.2 PCP: Ekta Ley MD PAST MEDICAL HISTORY 02/18/2009: Abnormal glandular Papanicolaou smear of cervix Comment: Abn. Pap smear (cervix), f/u with women's health No date: Asthma No date: Brain lesion Comment: Dr. Moya 12/2021: Breast abscess Comment: Left Breast No date: Class 1 obesity due to excess calories without serious comorbidity with body mass index (BMI) of 30.0 to 30.9 in adult 03/14/2003: Depression No date: Dysmenorrhea No date: Dysthymic disorder Comment: Depression (non-psychotic) No date: Excessive or frequent menstruation No date: Generalized convulsive epilepsy without mention of intractable epilepsy Comment: seizures No date: GERD (gastroesophageal reflux disease) No date: Herpes simplex virus (HSV) infection No date: Hyperlipidemia No date: Medical marijuana use Comment: Issued: 12/02/2021. : 11/27/2022 No date: Missed No date: Reflex sympathetic dystrophy of other specified site Comment: left arm No date: Seasonal allergies No date: Thyroid disease Current Outpatient Medications Medication Sig albuterol HFA (VENTOLIN HFA) 90 mcg/actuation inhaler Inhale 2 Puffs as instructed every 4 hours as needed for wheezing/shortness of breath. sertraline (ZOLOFT) 50 mg tablet Take 1 tablet by mouth once daily. atorvastatin (LIPITOR) 80 mg tablet Take 1 tablet by mouth daily at bedtime. For cholesterol. cetirizine (ZYRTEC) 10 mg tablet Take 1 tablet by mouth once daily. fluticasone (FLONASE) 50 mcg/actuation nasal spray Use 2 Sprays in each nostril once daily. Rinse mouth after use. folic acid 1 mg tablet Take by mouth. takes 4 tabs once a day pyridoxine HCl, vitamin B6, (VITAMIN B-6 ORAL) Take by mouth. SUMAtriptan (IMITREX) 50 mg tablet Take 50 mg by mouth as needed. levETIRAcetam (KEPPRA) 750 mg tablet Take 1.5 tablets by mouth twice daily. predniSONE (DELTASONE) 10 mg tablet Take 4 tabs daily for 3 days, then 2 tabs daily for 3 days, then 1 tab daily for 3 days with food. (Patient not taking: Reported on 04/05/2024) fluticasone (FLONASE) 50 mcg/actuation nasal spray Use 2 Sprays in each nostril once daily. Rinse mouth after use. (Patient not taking: Reported on 04/05/2024) No current facility-administered medications for this visit. ALLERGIES Allergen Reactions Erythromycin Base GI Upset Ketorolac Trometham* Rash Naproxen Rash Tramadol GI Upset PAST SURGICAL HISTORY No date: EXCISION GANGLION WRIST DORSAL/VOLAR PRIMARY 12/30/2021: IANDD HEMATOMA SEROMA/FLUID COLLECTION Comment: left breast 03/11/2022: INCISION AND DRAINAGE PROCEDURE (W NOTE); Left Comment: breast No date: PAST SURGICAL HISTORY OF Comment: LEFT ARM, CYST Removed No date: PAST SURGICAL HISTORY OF Comment: LEEP 04/2012, 2016: PAST SURGICAL HISTORY OF Comment: left foot surgery No date: TONSILLECTOMY PRIMARY/SECONDARY Comment: Tonsillectomy FAMILY HISTORY Problem Relation Age of Onset Cancer Mother UTERINE Hypertension Mother Lipids Mother Lipids Father other (clot in heart) Father No Known Problems Sister No Known Problems Sister No Known Problems Brother Heart Maternal Grandmother ANGINA Hypertension Maternal Grandmother Diabetes Maternal Grandmother Dementia Maternal Grandmother No Known Problems Maternal Grandfather Hypertension Paternal Grandmother Seizures Daughter Aneurysm Maternal Aunt 2 aunts other (arteriovenous malformation) Maternal Aunt Social History Tobacco Use Smoking status: Every Day Packs/day: 0.50 Years: 18.00 Additional pack years: 0.00 Total pack years: 9.00 Types: Cigarettes Smokeless tobacco: Never (more content not included)... Normal [facility] Office Visit Reporton 2023 Office Visit Report [facility] [address] [place] [address] OFFICE VISIT Date of Service: 03/09/24 MR#: [id number] Acct: [id number] Patient: GRISELDA CONCEPCION Rep #: [id number] : 1980 Provider: LAVON Pedroza Age/Sex: 44/F Location: [facility] Status: Signed Intake Vital Signs 06/28/23 08:15 Height 5 ft 8 in Intake Visit Reasons: QUANTIFERON/RESP FIT TEST/[place] Chief Complaint: Preemployment physical Allergies erythromycin base (Erythromycin Base) Allergy (Verified 06/28/23 08:17) Hives ketorolac tromethamine (From Toradol) Allergy (Verified 06/28/23 08:17) Rash naproxen (From Naprosyn) Allergy (Verified 06/28/23 08:17) Rash Office Procedures [facility] Billing Sheet Testing Respirator Clearance (form only): Yes Respirator Fit Testing: Yes Occquant-Quantiferon: Yes 04/05/24 0842 Date Wan DOLL Cosigner Signature: Date (if applicable) CC: Normal [facility] Quantiferon TB-Gold+on 03-13 QFT MITOGEN AUBREY > 10.00 Normal . [facility] Comment on above: Performed By: #### L [id number] #### [facility] [address] [place], [place], [id number] (374) QFT NIL VALUE 0.18 IU/mL Normal . [facility] Comment on above: Performed By: #### L [id number] #### [facility] [address] [place], [place], [id number] QFT TB GOLD+ Comment Normal . [facility] Comment on above: Result Comment: Juan Carlos tiFERON-TB Gold Plus is a qualitative indirect test for M tuberculosis infection (including disease) and is intended for use in conjunction with risk assessment, radiography, and other medical and diagnostic evaluations. The QuantiFERON-TB Gold Plus result is determined by subtracting the Nil value from either TB antigen (Ag) value. The Mitogen tube serves as a control for the test. Performed By: #### L [id number] #### [facility] [address] [place], [place], [id number] QFT TB POS CRIT Negative Normal Negative [facility] Comment on above: Result Comment: No r esponse to M tuberculosis antigens detected. Infection with M tuberculosis is unlikely, but high risk individuals should be considered for additional testing (ATS/IDSA/CDC Clinical Practice Guidelines, 2017). The reference range is an Antigen minus Nil result of <0.35 IU/mL. The specimen received for QuantiFERON testing was incubated by the ordering institution. Specific procedures outlined in our Directory of Services and in the package insert for the QuantiFERON Gold (In Tube) test must be followed to enable for proper stimulation of cells for the production of interferon gamma. Chemiluminescence immunoassay methodology Performed at: [facility] [address] [id number] Salesperson Fashion Accessories: Mike Abreu PhD, Phone: [phone] Performed By: #### L [id number] #### [facility] [address] [place], [address] QFT TB1+ AG AUBREY 0.21 IU/mL Normal . [facility] Comment on above: Performed By: #### L [id number] #### [facility] [address] [place], [address] QFT TB2+ AG AUBREY 0.15 IU/mL Normal . [facility] Comment on above: Performed By: #### L [id number] #### [facility] [address] [place], [address] Urgent Care Visit Reporton 0 03-09-2024 Urgent Care Visit Report [facility] [address], [address] [place] [address] OFFICE VISIT Date of Service: 03/09/24 MR#: [id number] Acct: [id number] Name: GRISELDA CONCEPCION Rep #: [id number] : 1980 Provider: LAVON Pedroza Age/Sex: 44/F Location: [facility] Status: Signed Intake Vital Signs 06/28/23 08:15 Height 5 ft 8 in Intake Visit Reasons: PRE EMP/NON DOT/PHYSICAL/[facility] Chief Complaint: Preemployment physical Allergies erythromycin base (Erythromycin Base) Allergy (Verified 06/28/23 08:17) Hives ketorolac tromethamine (From Toradol) Allergy (Verified 06/28/23 08:17) Rash naproxen (From Naprosyn) Allergy (Verified 06/28/23 08:17) Rash [facility] Medical History (Updated 03/09/24 @ 13:42 by LAVON Galindo) Hx LEEP (loop electrosurgical excision procedure), cervix, Hyperlipidemia GERD (gastroesophageal reflux disease) Depression Breast abscess RSD (reflex sympathetic dystrophy) History of sciatica Seizure disorder History of asthma Genital herpes Mental retardation Surgical History History of D C Status post incision and drainage ( 03/2022) History of surgery on arm Hx of toe surgery Family History Mother Uterine cancer Hypertension Hyperlipidemia Father Hyperlipidemia Pulmonary embolism and infarction Social History (Updated 07/22/22 @ 09:09 by Priscilla Henriquez) Smoking Status: Light Smoker (<10/day) alcohol intake: never substance use type: does not use caffeine: Yes what type of physical activity do you participate in: walking frequency: daily seatbelt use: always do you feel safe at home: Yes additional social history: Gloria Farmer Female Reproductive History Menstrual Ab spontaneous: 2 HPI HPI Chief Complaint: Preemployment physical Details: GRISELDA CONCEPCION, is a 44 F who presents to the office today for preemployment physical. Please see corresponding scanned documents with today's date. Office Procedures Physical Exam Coding PE Coding Pre-employment PE: Yes Coding Level of Care Code No Charge Diagnoses Encounter for pre-employment health screening examination Z02.1 Assessment and Plan Assessment and Plan (1) Encounter for pre-employment health screening examination: Status: Acute Orders: Orders Quantiferon TB-Gold+ Today Z02.1 - Encounter for pre-employment examination 03/09/24 1342 Date Wan Randolph Signature: Date (if applicable) CC: [facility] CNOVon 02-16-2024 CNOV Office Visit (UCWSTR ) GRISELDA CONCEPCION ([id number]) 1980 F CHT Date Time Provider Department 02/16/24 5:45 PM DARLYN SHANE During your visit today, we recorded the following information about you: Temperature Pulse Respiration Blood pressure 97.2 degrees 76/minute 20/minute 111/74 Weight Last Period 77 kg 01/04/24 Darlyn Shane APRN.BRAKE ADJUSTER 02/16/2024 6:10 PM Signed This note was created using NoteWriter. Subjective Griselda Concepcion is a 43 year old female. 43 year old female with PMH epilepsy, migraines, hyperlipidemia, asthma and GERD presents for illness. Acute onset today +nasal rhinorrhea +green +headache +sinus pressure +congestion Denies cough Denies fever or chills Denies N/V/D Denies body aches or fatigue Has used Mucinex +tobacco smoker The history is provided by the patient. No rug measurer was used. Sinus Problem This is a new problem. The current episode started today. The problem occurs constantly. The problem has been unchanged. Associated symptoms include congestion and headaches. Pertinent negatives include no abdominal pain, anorexia, arthralgias, change in bowel habit, chest pain, chills, coughing, diaphoresis, fatigue, fever, joint swelling, myalgias, nausea, neck pain, numbness, rash, sore throat, swollen glands, urinary symptoms, vertigo, visual change, vomiting or weakness. Nothing aggravates the symptoms. Treatments tried: Mucinex. The treatment provided no relief. PAST MEDICAL HISTORY Diagnosis Date Abnormal glandular Papanicolaou smear of cervix 02/18/2009 Abn. Pap smear (cervix), f/u with women's health Asthma Brain lesion Dr. 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 : 11/27/2022 Missed Reflex sympathetic dystrophy of other specified site left arm Seasonal allergies Thyroid disease PAST SURGICAL HISTORY Procedure Laterality Date EXCISION GANGLION WRIST DORSAL/VOLAR PRIMARY IANDD HEMATOMA SEROMA/FLUID COLLECTION 12/30/2021 left breast INCISION AND DRAINAGE PROCEDURE (W NOTE) Left 03/11/2022 breast PAST SURGICAL HISTORY OF LEFT ARM, CYST Removed PAST SURGICAL HISTORY OF LEEP PAST SURGICAL HISTORY OF 04/2012, 2016 left foot surgery TONSILLECTOMY PRIMARY/SECONDARY Tonsillectomy ALLERGIES Erythromycin Base, Ketorolac Tromethamine, Naproxen, and Tramadol MEDICATIONS albuterol HFA (VENTOLIN HFA) 90 mcg/actuation inhaler Inhale 2 Puffs as instructed every 4 hours as needed for wheezing/shortness of breath. sertraline (ZOLOFT) 50 mg tablet Take 1 tablet by mouth once daily. atorvastatin (LIPITOR) 80 mg tablet Take 1 tablet by mouth daily at bedtime. For cholesterol. cetirizine (ZYRTEC) 10 mg tablet Take 1 tablet by mouth once daily. fluticasone (FLONASE) 50 mcg/actuation nasal spray Use 2 Sprays in each nostril once daily. Rinse mouth after use. folic acid 1 mg tablet Take by mouth. takes 4 tabs once a day pyridoxine HCl, vitamin B6, (VITAMIN B-6 ORAL) Take by mouth. SUMAtriptan (IMITREX) 50 mg tablet Take 50 mg by mouth as needed. levETIRAcetam (KEPPRA) 750 mg tablet Take 1.5 tablets by mouth twice daily. predniSONE (DELTASONE) 10 mg tablet Take 4 tabs daily for 3 days, then 2 tabs daily for 3 days, then 1 tab daily for 3 days with food. fluticasone (FLONASE) 50 mcg/actuation nasal spray Use 2 Sprays in each nostril once daily. Rinse mouth after use. FAMILY HISTORY Problem Relation Age of Onset Cancer Mother UTERINE Hypertension Mother Lipids Mother Lipids Father other (clot in heart) Father No Known Problems Sister No Known Problems Sister No Known Problems Brother Heart Maternal Grandmother ANGINA Hypertension Maternal Grandmother Diabetes Maternal Grandmother Dementia Maternal Grandmother No Known Problems Maternal Grandfather Hypertension Paternal Grandmother Seizures Daughter Aneurysm Maternal Aunt 2 aunts other (arteriovenous malformation) Maternal Aunt Social History Tobacco Use Smoking status: Every Day Packs/day: 0.50 Years: 18.00 Additional pack years: 0.00 Total pack years: 9.00 Types: Cigarettes Smokeless tobacco: Never Tobacco comments: 3 cigarettes a day Vaping Use Vaping Use: Never used Substance Use Topics Alcohol use: No Drug use: No Review of Systems Constitutional: Negative for chills, diaphoresis, fatigue and fever. HENT: Positive for congestion. Ne (more content not included)... [facility] CONCEPCIONVERONICA MULTANIEdith Hendrickson ([id number]) 1980 F T Date Time Provider Department 12/19/23 EKTA LEY During your visit today, we recorded the following information about you: Laurie Duron 12/19/2023 2:14 PM Signed Griselda is calling Ekta Ley MD today with concern regarding medication request. Patient requesting her rescue inhaler. She does not know the name of it. Patient has been identified by name and birthdate. Duration of symptoms: N/A Person calling: self Call patient at: on cell [phone] (home) [phone] (cell) Was an appointment scheduled: No Closing statement: Results or non-symptom based questions: Thank you for calling [facility], your call will be returned within the next business day. Ekta Olvera MD 12/19/2023 2:45 PM Signed Albuterol refill sent to [facility]. Erika Lubin LPN 12/19/2023 3:31 PM Signed Patient notified. Erika Lubin LPN Allergies As of Date: 12/19/2023 Noted Allergy Reaction ERYTHROMYCIN BASE 01/16/2003 8 - GI Upset KETOROLAC TROMETHAMINE 11/12/2017 2 - Rash NAPROXEN 11/12/2017 2 - Rash TRAMADOL 02/15/2017 8 - GI Upset Date Reviewed: 09/15/2023 Reviewed by: Patricia Restrepo LPN - Fully Assessed Reason for Visit: medication request [Other] Visit Diagnosis:Mild intermittent asthma without complication [J45.20] Order(s):albuterol HFA (VENTOLIN HFA) 90 mcg/actuation inhalerInhale 2 Puffs as instructed every 4 hours as needed for wheezing/shortness of breath.Disp: 18 gRfl: 2 Prescriptions as of 12/19/2023 - albuterol HFA (VENTOLIN HFA) 90 mcg/actuation inhaler Inhale 2 Puffs as instructed every 4 hours as needed for wheezing/shortness of breath. - sertraline (ZOLOFT) 50 mg tablet Take 1 tablet by mouth once daily. - atorvastatin (LIPITOR) 80 mg tablet Take 1 tablet by mouth daily at bedtime. For cholesterol. - cetirizine (ZYRTEC) 10 mg tablet Take 1 tablet by mouth once daily. - fluticasone (FLONASE) 50 mcg/actuation nasal spray Use 2 Sprays in each nostril once daily. Rinse mouth after use. - folic acid 1 mg tablet Take by mouth. takes 4 tabs once a day - pyridoxine HCl, vitamin B6, (VITAMIN B-6 ORAL) Take by mouth. - SUMAtriptan (IMITREX) 50 mg tablet Take 50 mg by mouth as needed. - levETIRAcetam (KEPPRA) 750 mg tablet Take 1.5 tablets by mouth twice daily. Problem List As Of Date 12/19/2023 Noted Resolved REFLEX SYMPATH DYSTRPHY UPPER LIMB [G90.519] 01/18/2003 Migraine without aura [G43.009] 03/14/2003 Generalized convulsive epilepsy (HCC) [G40.309] 03/14/2003 OTHER LEARNING DIFFICULTY [F81.89] 03/14/2003 Depression [F32.A] 03/14/2003 Mild intermittent asthma without complication [*12/02/2005 Obesity, unspecified [E66.9] 04/20/2007 04/09/2015 PAP SMEAR CERVIX W LGSIL [R87.612] 08/14/2008 Papanicolaou smear of cervix with atypical squa*08/14/2008 04/09/2015 Cervical high risk human papillomavirus (HPV) D*08/14/2008 04/09/2015 TOBACCO USE DISORDER [F17.200] 11/07/2008 Goiter [E04.9] 12/17/2009 Supervision of normal first [Z34.00] 05/25/2011 05/25/2011 Supervision of other high-risk [O09.8*05/25/2011 12/20/2012 Porokeratosis [Q82.8] 06/04/2011 04/09/2015 Abnormality of gait [R26.9] 11/05/2011 Skin lesion [L98.9] 01/19/2012 04/09/2015 Lumbar strain [S39.012A] 05/17/2012 04/09/2015 Chronic, continuous use of opioids [F11.90] 10/17/2012 04/09/2015 Chronic pain [G89.29] 10/17/2012 04/09/2015 Left foot pain [M79.672] 10/17/2012 04/09/2015 Benign neoplasm of skin of trunk, except scrotu*02/07/2013 04/09/2015 Hemangioma [D18.00] 02/15/2013 04/09/2015 Hyperlipidemia [E78.5] 01/07/2015 Contusion of scapular region [S40.019A] 02/18/2015 Neoplasm, brain (HCC) [D49.6] 07/06/2016 GERD (gastroesophageal reflux disease) [K21.9] Acute bilateral low back pain without sciatica *05/30/2018 11/27/2021 History of seizures [Z87.898] 01/11/2019 Disability due to neurological disorder [R29.81*01/11/2019 History of asthma [Z87.09] 01/11/2019 11/27/2021 Tobacco use in , antepartum [O99.330] 01/11/2019 11/27/2021 History of depression [Z86.59] 01/11/2019 11/27/2021 History of loop electrosurgical excision proced*01/11/2019 Patient request for diagnostic testing [Z01.89] 01/11/2019 11/27/2021 Asthma [J45.909] Seasonal allergies [J30.2] 11/27/2021 Prescriptions ordered this encounter Disp Refills Start End ALBUTEROL SULFATE HFA 90 MCG/ACTUATI* 18 g 2 12/19/2023 Cmt: Generic or brand: dispense inhaler preferred by patient/insurance unless ELIANA flag is selected. Route: INHALATION Sig: Inhale 2 Puffs as instructed every 4 hours as needed for wheezing/shortness of breath. Medications Discontinued During This Encounter Prescriptions - albuterol HFA (VENTOLIN HFA) 90 mcg/actuation inhaler (Discontinued) Inhale 2 Puffs as inst (more content not included)... Normal [facility] MRI BRAIN W/ + W/O CONTRASTo n 10-27-2023 MRI BRAIN W/ + W/O CONTRAST ORIGINAL EXAMINATION: MRI OF THE BRAIN WITHOUT AND WITH CONTRAST 10/27/2023 9:20 am TECHNIQUE: Multiplanar multisequence MRI of the head/brain was performed without and with the administration of intravenous contrast. COMPARISON: None. HISTORY: ORDERING SYSTEM PROVIDED HISTORY: Reason for Exam: Chronic migraine w/o aura, intractable, w status migrainosus FINDINGS: No acute infarct or hemorrhage. No midline shift, mass effect or hydrocephalus. There is an isolated 6 mm focus of T2 prolongation in the right frontal subcortical white matter posterolaterally. This is a nonspecific finding. No abnormal postcontrast enhancement. Suprasellar cistern patent. Mild sinus inflammatory disease. Mastoids clear. Cerebellar tonsils are pointed in morphology and extent 3 mm caudal to the foramen magnum. This does not meet strict criteria for a Chiari malformation. IMPRESSION: No acute findings. Isolated T2 signal abnormality in the right frontal lobe measuring 6 mm. Differential considerations include sequela of migraine headaches, demyelination, or early chronic small vessel ischemic change and other infectious/inflammator y processes. Low-lying cerebellar tonsils which do not meet strict criteria for Chiari malformation at this time. Interpreted by: Wes Espitia Preliminary Report By: Wes Espitia Electronically signed By Wes Espitia Dictated Date: 10/27/2023 3:58:32 PM Prelim Date: 10/27/2023 4:02:54 PM Sign Date: 10/27/2023 4:02:54 PM Ordering Provider: AJAYMARCELLUS MARCIAL [facility] ([place]) HCG QUAL URon 03-11-2022 HCG ( test) Ql (U) Negative Negative [facility] ANES POSTPROC EVALon 022 ANES POSTPROC EVAL HNO ID: [id number] Author: Lul Mccarthy MD Service: Anesthesiology Author Type: Anesthesiologist Type: Anesthesia Postprocedure Evaluation Filed: 12/30/2021 3:14 PM Note Text: POST ANESTHESIA EVALUATION NOTE : 1980 Procedure Summary Date: 12/30/21 Room / Location: [place] / [place] Anesthesia Start: 1410 Anesthesia Stop: 1449 Procedure: INCISION AND DRAINAGE HEMATOMA SEROMA BREAST (Left ) Diagnosis: Left breast abscess Surgeons: Jacob Weinstein MD Responsible Provider: Linda Watts MD Anesthesia Type: general ASA Status: 3 Anesthesia Type: general Airway Type: ETT Last Vitals Vitals Value Taken Time BP 114/73 12/30/21 1500 Temp 36.1 ?C (97 ?F) 12/30/21 1448 Pulse 87 12/30/21 1513 Resp 23 12/30/21 1513 SpO2 93 % 12/30/21 1513 Vitals shown include unvalidated device data. Post Anesthesia Patient Status Patient Evaluation: bedside. Anticipated Disposition: phase 2 then home. Neurological Status: aware and responsive. Pulmonary Status: breathing comfortably on room air Airway Control: returned to baseline unsupported. Cardiovascular Status: stable. Pain Management: clinically adequate Postoperative Hydration: acceptable. Intraoperative Events: no significant anesthesia events Post Operative Nausea/Vomiting Status: no significant post operative nausea or vomiting Anesthetic Observations: Recommendation: continue current plan of care. Anesthesia Observations No Documentation SIGNATURE: Lul Mccarthy MD PATIENT NAME: Griselda Concepcion DATE: December 30, 2021 TIME: 3:14 PM CSN: [id number] [facility] ANES PRE-OPon 12-30-2021 ANES PRE-OP HNO ID: [id number] Author: Linda Watts MD Service: ? Author Type: Anesthesiologist Type: Anesthesia Preprocedure Evaluation Filed: 12/30/2021 1:38 PM Note Text: ANESTHESIOLOGY DAY OF SURGERY NOTE : 1980 Procedure Information Date/Time: 12/30/21 1430 Procedure: INCISION AND DRAINAGE HEMATOMA SEROMA BREAST (Left ) Location: [place] OR05 / [place] Surgeons: Jacob Weinstein MD Estimated body mass index is 30.72 kg/m? as calculated from the following: Height as of 12/29/21: 174 cm (5' 8.5). Weight as of 12/29/21: 93 kg (205 lb). Most recent hematocrit and potassium results: Hematocrit 42.7 11/30/2021 Potassium 3.8 11/30/2021 Relevant Problems CARDIO (+) Migraine without aura GI (+) GERD (gastroesophageal reflux disease) NEURO-PSYCH (+) Generalized convulsive epilepsy (HCC) (+) History of seizures (+) Migraine without aura PULMONARY (+) Asthma (+) Mild intermittent asthma without complication I - PHYSICAL EVALUATION AIRWAY Patient intubated: No. Tracheostomy tube not present Mallampati: II. TM distance: >3 FB. Neck ROM: full ROM without neurological symptoms. Mouth opening: adequate. Short neck: no. Thick neck: no DENTAL Normal dental observations. Dental findings: edentulous. Dentures, upper: complete. Additional exam findings: yes. CARDIOVASCULAR Rhythm: regular Rate: normal PULMONARY Breath sounds clear to auscultation. ABDOMINAL Obese: obesity present. II - ANESTHESIA PLAN ASA Score: 3 Anesthetic Plan: general Airway type: ETT The patient is a current smoker. NPO Status: adequate Monitoring plan: standard ASA. Postoperative analgesic plan: parenteral or oral opioids and multimodal analgesia. Informed Consent Anesthetic risks, benefits, alternatives, personnel and consent discussed: yes. Patient / Responsible Republican agrees to proceed: yes Patient / Surrogate agrees to blood products: Yes DNR status not reviewed with patient and/or family prior to surgery. Significant changes in the patient condition since the History and Physical, not otherwise documented in primary service progress note: no. Potential Anesthesia issues that may suggest increased risk of complications or contraindication to planned procedure: none. No vitals data found for the desired time range. Facility-Administered Medications as of 12/30/2021 Medication Dose Route Frequency - lactated ringers iv infusion 5-30 mL/hr INTRAVENOUS CONTINUOUS - clindamycin iv piggyback 900 mg in D5W 50 mL (CLEOCIN) 900 mg INTRAVENOUS Pre-Op Once - acetaminophen 1,000 mg tab(s) (TYLENOL) 1,000 mg ORAL Pre-Op Once Outpatient Medications as of 12/30/2021 Medication Sig - amoxicillin-clavulanic acid (AUGMENTIN) 875-125 mg per tablet Take 1 tablet by mouth twice daily for 10 days. FOR 10 DAYS. - famotidine (PEPCID) 20 mg tablet Take 1 tablet by mouth twice daily. - cetirizine (ZYRTEC) 10 mg tablet Take 1 tablet by mouth once daily. - sertraline (ZOLOFT) 50 mg tablet Take 1 tablet by mouth once daily. - folic acid 1 mg tablet Take by mouth. takes 4 tabs once a day - pyridoxine HCl, vitamin B6, (VITAMIN B-6 ORAL) Take by mouth. - levETIRAcetam (KEPPRA) 750 mg tablet Take 1.5 tablets by mouth twice daily. - atorvastatin (LIPITOR) 80 mg tablet Take 1 tablet by mouth daily at bedtime. For cholesterol. - albuterol HFA (VENTOLIN HFA) 90 mcg/actuation inhaler Inhale 2 Puffs as instructed every 4 hours as needed for wheezing/shortness of breath. - fluticasone (FLONASE) 50 mcg/actuation nasal spray Use 2 Sprays in each nostril once daily. Rinse mouth after use. - SUMAtriptan (IMITREX) 50 mg tablet I have interviewed and examined the patient. I have reviewed the medical record and/or the pre-anesthesia evaluation, pertinent labs, and test results. This contains updated information obtained within 48 hours of Surgery/Procedure. SIGNATURE: Linda Watts MD PATIENT NAME: Griselda Concepcion DATE: December 30, 2021 TIME: 1:38 PM CSN: [id number] [facility] BRIEF OP NOTon 12-30-2021 BRIEF OP NOT HNO ID: [id number] Author: Jacob Weinstein MD Service: General Surgery Author Type: Physician Type: Brief Op Note Filed: 12/30/2021 2:42 PM Note Text: BRIEF OPERATIVE NOTATION FOR SURGICAL PROCEDURE. Griselda Concepcion 1980 [id number] female LOG ID: [id number] Surgery/Procedure Date: 12/30/2021 Incision/Procedure Start Time: 2:28 PM Incision Close/Procedure End Time: 2:35 PM Surgeon(s)/Procedurali st(s) and Industrial Security Analyst(s): Surgeon(s) and Role: * Jacob Weinstein MD - Primary Nurse Practitioner: Darian Rivera APRN.CNP REFERRING PHYSICIAN: Outpatient DEPT: JAY PROVIDER: Tristan POS: [id number] ANESTHESIA: General ASA CLASS: 3 - Severe DIAGNOSIS: left breast abscess PROCEDURE: incision and drainage of left breast abscess IVF: 400 EBL: 15 Specimens: culture ADDITIONAL DIAGNOSES: FINDINGS: COMPLICATIONS: None PMHx - PAST MEDICAL HISTORY Diagnosis Date - Abnormal glandular Papanicolaou smear of cervix 02/18/2009 Abn. Pap smear (cervix), f/u with women's health - Asthma - Brain lesion Dr. 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 - [id number] Jacob Weinstein MD [facility] Bacteria Wnd Culton 12-31-19 22 Bacteria identified Cx Nom (Wound) CULTURE, WOUND: No growth 3 days GRAM STAIN: No organisms seen No Polymorphonuclear Leukocytes Normal [facility] Comment on above: Performed By: #### [id number] #### [facility] CLIA [id number] [address] [place] [address] [place] HISTORY PHYSICALon 2 HISTORY PHYSICAL HNO ID: [id number] Author: Jacob Weinstein MD Service: General Surgery Author Type: Physician Type: HANDP Filed: 12/30/2021 1:50 PM Note Text: HISTORY AND PHYSICAL - BREAST COMPLAINT ? Griselda Concepcion 1980 ? ? REFERRING PHYSICIAN: Yani Puente ? CHIEF COMPLAINT: Left breast cellulitis ? HPI: The patient is a 41 year old female with a complaint of left breast swelling and cellulitis. The patient has noticed for the past 3 to 4 days erythema around the nipple area has become more tender. She also noted some milky discharge from the center of the breast. ? The patient was seen yesterday by Yani Puente. She was started on Keflex for presumed breast cellulitis. The patient was referred to me for rule out breast abscess. ? 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 Mammogram and ultrasound were ordered but these will be scheduled for January. ? The patient has had 3 pregnancies. ? The patient is being seen by me today at the request of Yani Puente found my opinion and advice regarding left breast cellulitis versus abscess. The patient was first seen by me in on April 19, 2020. She was then seen in follow-up on the . I tried ultrasound-guided aspiration of what I thought was going to be approximately an 0.8 x 1 cm collection in the subareolar area which actually seemed a little larger than what I had seen initially. This returned a very minimal amount of scant purulence and the patient noted this was quite uncomfortable. ? She followed up again on the . There was less redness but ultrasound demonstrated the same sized abnormality. She followed up again on the . At this time I recommended incision and drainage of what I presume to be an abscess and that collection. Due to the amount of discomfort of aspiration the patient was seen was performed in the operating suite ? ? PAST MEDICAL HISTORY PAST MEDICAL HISTORY Diagnosis Date - Abnormal glandular Papanicolaou smear of cervix 02/18/2009 ? Abn. Pap smear (cervix), f/u with women's health - Asthma ? - Brain lesion ? ? Dr. Moya - Breast abscess 12/2021 ? Left Breast - Class 1 obesity due to excess calories without serious comorbidity with body mass index (BMI) of 30.0 to 30.9 in adult ? - Dysmenorrhea ? - Dysthymic disorder ? ? Depression (non-psychotic) - Excessive or frequent menstruation ? - Generalized convulsive epilepsy without mention of intractable epilepsy ? ? seizures - GERD (gastroesophageal reflux disease) ? - Herpes simplex virus (HSV) infection ? - Hyperlipidemia ? - Missed ? - Reflex sympathetic dystrophy of other specified site ? ? left arm - Seasonal allergies ? - Thyroid disease ? ? ? PAST SURGICAL HISTORY PAST SURGICAL HISTORY Procedure Laterality Date - EXCISION GANGLION WRIST DORSAL/VOLAR PRIMARY ? ? - PAST SURGICAL HISTORY OF ? ? ? LEFT ARM, CYST Removed - PAST SURGICAL HISTORY OF ? ? ? LEEP - PAST SURGICAL HISTORY OF ? 04/2012, 2016 ? left foot surgery - TONSILLECTOMY PRIMARY/SECONDARY ? Tonsillectomy ? ? ? CURRENT MEDICATIONS Current Outpatient Medications Medication Sig Dispense Refill - amoxicillin-clavulanic acid (AUGMENTIN) 875-125 mg per tablet Take 1 tablet by mouth twice daily for 10 days. FOR 10 DAYS. 20 tablet 0 - atorvastatin (LIPITOR) 80 mg tablet Take 1 tablet by mouth daily at bedtime. For cholesterol. 90 tablet 1 - albuterol HFA (VENTOLIN HFA) 90 mcg/actuation inhaler Inhale 2 Puffs as instructed every 4 hours as needed for wheezing/shortness of breath. 18 g 5 - famotidine (PEPCID) 20 mg tablet Take 1 tablet by mouth twice daily. 180 tablet 3 - fluticasone (FLONASE) 50 mcg/actuation nasal spray Use 2 Sprays in each nostril once daily. Rinse mouth after use. 1 Each 5 - cetirizine (ZYRTEC) 10 mg tablet Take 1 tablet by mouth once daily. 90 tablet 3 - sertraline (ZOLOFT) 50 mg tablet Take 1 tablet by mouth once daily. 90 tablet 3 - folic acid 1 mg tablet Take by mouth. takes 4 tabs once a day 360 tablet 11 - pyridoxine HCl, vitamin B6, (VITAMIN B-6 ORAL) Take by mouth. ? ? - SUMAtriptan (IMITREX) 50 mg tablet ? ? ? - levETIRAcetam (KEPPRA) 750 mg tablet Take 1.5 tablets by mouth twice daily. ? 0 ? No current facility-administered medications for this visit. ? ? ALLERGIES: Erythromycin Base, Ketorolac Tromethamine, Naproxen, and Tramadol ? PERSONAL HISTORY: SOCIAL HISTORY Social History ? Tobacco Use - Smoking status: Current Every Day Smoker ? ? Packs/day: 0.50 ? ? Years: 18.00 ? ? Pack years: 9.00 ? ? Types: Cigarettes - Smokeless tobacco: Never Used - Tobacco comment: 3 cigarettes a day Vaping Use - Vaping Use: Never used Substance Use Topics - Alcohol use: No - Drug use: No ? FAMILY HISTORY: FAMILY HISTORY (more content not included)... Normal [facility] OPERATIVE NOon 12-30-2021 OPERATIVE NO HNO ID: [id number] Author: Jacob Weinstein MD Service: General Surgery Author Type: Physician Type: Operative Report Filed: 12/31/2021 8:20 AM Note Text: [place] - Operative Report GRISELDA CONCEPCION : 1980 AGE: 41. SEX: F PATIENT TYPE: [place] [place] [facility] LOCATION: [facility] ATTENDING PHYSICIAN: Jacob Weinstein M.D. CSN NUMBER: [id number] DATE OF SURGERY/PROCEDURE: 12/30/2021 INCISION/PROCEDURE START TIME: Start time was 2:28 p.m. INCISION CLOSE/PROCEDURE END TIME: End time is 2:35 p.m. PREOPERATIVE DIAGNOSIS: Left breast abscess. POSTOPERATIVE DIAGNOSIS: Drainage of left breast abscess. SURGEON: Jacob Weinstein M.D. HIGHWAY MAINTENANCE CREW WORKER: Darian Rivera CNP. SURGERY/PROCEDURE: Incision and drainage of left breast abscess. ANESTHESIA: Monitored Anesthesia Care LOG ID NUMBER: [id number]. ASA: 3. INTRAVENOUS FLUIDS: 400 mL. ESTIMATED BLOOD LOSS: 15. URINE OUTPUT: No catheter. SPECIMEN: Pus for culture. The cavity was packed with quarter-inch iodoform. DESCRIPTION OF PROCEDURE: The patient's left breast site of tenderness and induration was marked in the holding area. Sign-in was performed verifying the patient, site, procedure, position, critical nursing information, VTE, and antibiotic prophylaxis. Patient received 900 mg of clindamycin, had sequential compression devices placed. She was brought back to the operative suite. Following IV sedation, ultrasound demonstrated again what was felt to be the collection that was noted in the office. This site was marked after the area was prepped and draped in usual fashion. Time-out was performed verifying the patient, site, procedure, and position. Local anesthetic was injected in the skin. An 18-gauge needle was again inserted into the cavity with minimal ability aspirate. A 1 cm incision was made at the nipple-areolar complex. Hemostat was used to enter the abscess cavity draining purulent material. Culture swab was obtained. After the material was expressed, quarter-inch iodoform was then packed into the cavity. Pressure was held and the dressing applied. The patient tolerated the procedure well and was brought to recovery room in stable condition. ATTESTATION: Darian Rivera assisted in care of the patient. Jacob Weinstein M.D. RG:[id number] /[id number] Normal [facility] US THYROID/PARATHYROIDon [facility] MRI BRAIN W/WO CONTRASTon MRI BRAIN W/WO CONTRAST Performed at [facility] APPROVED BY: Jayesh Maguire MD EXAM TITLE: MRI OF THE BRAIN WITHOUT AND WITH INTRAVENOUS CONTRAST DATE:08/09/2017 08:49 COMPARISON: Nuclear medicine brain study 07/07/2016 and MR brain 05/18/2016 and MR brain 09/30/2010 CLINICAL INDICATION/HISTORY: History of seizures since ; headaches; known small right opercular lesion; malignant neoplasm of brain unspecified TECHNIQUE: Multiplanar multisequence imaging was performed of the brain prior to and after the administration of 17 cc intravenous gadolinium Dotarem contrast. RESULTS:Again noted is a 7 mm ovoid T2 hyperintense lesion within the right frontoparietal subcortical white matter. This is along the right-sided insular cortex. (Series 12 image 13). There has been no change in size or appearance compared to the May 2016 brain MRI. There is no evidence of enhancement. No additional white matter or cortical lesions are seen. The cerebellar tonsils extend approximately 3 mm below the level of the foramen magnum suggesting a borderline Chiari malformation. This appears slightly more prominent compared to the MRI from May 2016. The ventricles demonstrate mild dilatation, particularly of the posterior horns of the lateral ventricles. This is similar compared to the prior.. There are no enhancing abnormalities. There is mild mucosal thickening of the ethmoidal air cells. Paranasal sinuses are otherwise unremarkable. Orbits are unremarkable. Negative for restricted diffusion. No evidence of hemorrhage or extra-axial fluid collection. Calvarium is unremarkable. IMPRESSION: 1. 7 mm T2 hyperintense lesion within the right frontoparietal opercular region. No significant change compared to May 2016. Etiology remains uncertain/nonspecific. This still may represent a remote ischemic insult or gliosis. A small demyelinating lesion or low-grade glioma are still not excludable. 2. Mild cerebellar tonsillar ectopia. This is similar or slightly more prominent compared to the May 2016 MRI. 3. Mild chronic dilatation of the lateral ventricles. No significant change. Normal [facility] Bacteria identified Anaer cx Nom (Unsp spec) Anaerobic Culture Prevotella disiens [facility] Work Phone: Anaerobic Culture Clostridium group [facility] Work Phone: Gram stain for investigation of transfusion reaction Microscopic observation Gram stain Nom (Unsp spec) [facility] Work Phone: Vital Signs Date Time Vital Sign Value Performing Clinician Faci lity 01-14-2025 10:11-0400 Diastolic blood pressure 73 mm[Hg] Betsy Jalloh MD Work Phone: [facility] 01-14-2025 10:11-0400 Heart rate 82 /min Betsy Jalloh MD Work Phone: [facility] 01-14-2025 10:11-0400 Systolic blood pressure 120 mm[Hg] Betsy Jalloh MD Work Phone: [facility] 12-12-2024 08:50-0400 Body height 174 cm Chan Apple MD Work Phone: [facility] 12-12-2024 08:50-0400 Body mass index (BMI) [Ratio] 22.99 kg/m2 Chan Apple MD Work Phone: [facility] 12-12-2024 08:50-0400 Body temperature 97.81 [degF] Chan Apple MD Work Phone: [facility] 12-12-2024 08:50-0400 Body weight 69.6 kg Chan Apple MD Work Phone: [facility] 12-12-2024 08:50-0400 Diastolic blood pressure 78 mm[Hg] Chan Apple MD Work Phone: [facility] 12-12-2024 08:50-0400 Heart rate 78 /min Chan Apple MD Work Phone: [facility] 12-12-2024 08:50-0400 Respiratory rate 16 /min Chan Apple MD Work Phone: [facility] 12-12-2024 08:50-0400 SaO2% (BldA) [Mass fraction] 98 % Chan Apple MD Work Phone: [facility] 12-12-2024 08:50-0400 Systolic blood pressure 132 mm[Hg] Chan Apple MD Work Phone: [facility] 12-11-2024 10:07-0400 Diastolic blood pressure 83 mm[Hg] Betsy Jalloh MD Work Phone: [facility] 12-11-2024 10:07-0400 Heart rate 71 /min Betsy Jalloh MD Work Phone: [facility] 12-11-2024 10:07-0400 Systolic blood pressure 131 mm[Hg] Betsy Jalloh MD Work Phone: [facility] 11-29-2024 11:55-0400 Body height 172.[address] Adrian Ley MD Work Phone: [facility] 11-29-2024 11:55-0400 Body mass index (BMI) [Ratio] 24.2 kg/m2 Dr. Adrian Ley MD Work Phone: [facility] 11-29-2024 11:55-0400 Body temperature 96.3 [degF] Dr. Adrian Ley MD Work Phone: [facility] 11-29-2024 11:55-0400 Body weight 72.[address] Adrian Ley MD Work Phone: [facility] 11-29-2024 11:55-0400 Diastolic blood pressure 72 mm[Hg] Dr. Adrian Ley MD Work Phone: [facility] 11-29-2024 11:55-0400 Heart rate 76 /min Dr. Adrian Ley MD Work Phone: [facility] 11-29-2024 11:55-0400 Respiratory rate 14 /min Dr. Adrian Ley MD Work Phone: [facility] 11-29-2024 11:55-0400 SaO2% (BldA) [Mass fraction] 98 % Dr. Adrian Ley MD Work Phone: [facility] 11-29-2024 11:55-0400 Systolic blood pressure 122 mm[Hg] Dr. Adrian Ley MD Work Phone: [facility] 11-27-2024 13:46-0400 Diastolic blood pressure 68 mm[Hg] Betsy Jalloh MD Work Phone: [facility] 11-27-2024 13:46-0400 Heart rate 63 /min Betsy Jalloh MD Work Phone: [facility] 11-27-2024 13:46-0400 Systolic blood pressure 105 mm[Hg] Betsy Jalloh MD Work Phone: [facility] 11-20-2024 15:12-0400 Body mass index (BMI) [Ratio] 23.01 kg/m2 Edgard Gómez APRN.BRAKE ADJUSTER Work Phone: [facility] 11-20-2024 15:12-0400 Body weight 70 kg Edgard Gómez APRN.BRAKE ADJUSTER Work Phone: [facility] 11-20-2024 15:12-0400 Diastolic blood pressure 67 mm[Hg] Edgard Gómez APRN.BRAKE ADJUSTER Work Phone: [facility] 11-20-2024 15:12-0400 Heart rate 78 /min Edgard Gómez APRN.BRAKE ADJUSTER Work Phone: [facility] 11-20-2024 15:12-0400 Systolic blood pressure 113 mm[Hg] Edgard Gómez APRN.BRAKE ADJUSTER Work Phone: [facility] 11-06-2024 14:20-0500 Diastolic blood pressure 57 mm[Hg] Betsy Jalloh MD Work Phone: [facility] 11-06-2024 14:20-0500 Heart rate 66 /min Betsy Jalloh MD Work Phone: [facility] 11-06-2024 14:20-0500 Systolic blood pressure 106 mm[Hg] Betsy Jalloh MD Work Phone: [facility] 09-18-2024 17:23-0500 Body mass index (BMI) [Ratio] 25 kg/m2 Dr. Adrian Ley MD Work Phone: [facility] 09-18-2024 17:23-0500 Body temperature 98.2 [degF] Dr. Adrian Ley MD Work Phone: [facility] 09-18-2024 17:23-0500 Body weight 74.[address] Adrian Ley MD Work Phone: [facility] 09-18-2024 17:23-0500 Diastolic blood pressure 65 mm[Hg] Dr. Adrian Ley MD Work Phone: [facility] 09-18-2024 17:23-0500 Heart rate 85 /min Dr. Adrian Ley MD Work Phone: [facility] 09-18-2024 17:23-0500 Respiratory rate 16 /min Dr. Adrian Ley MD Work Phone: [facility] 09-18-2024 17:23-0500 SaO2% (BldA) [Mass fraction] 99 % Dr. Adrian Ley MD Work Phone: [facility] 09-18-2024 17:23-0500 Systolic blood pressure 115 mm[Hg] Dr. Adrian Ley MD Work Phone: [facility] 05-21-2024 18:22-0400 Body mass index (BMI) [Ratio] 24.76 kg/m2 Mirian Lepe APRN.CNP Work Phone: [facility] 05-21-2024 18:22-0400 Body temperature 98.6 [degF] Mirian Lepe LIQUOR GALLERY OPERATOR.BRAKE ADJUSTER Work Phone: [facility] 05-21-2024 18:22-0400 Body weight 75.3 kg Mirian Lepe APRN.BRAKE ADJUSTER Work Phone: [facility] 05-21-2024 18:22-0400 Diastolic blood pressure 72 mm[Hg] Mirian Lepe APRN.BRAKE ADJUSTER Work Phone: [facility] 05-21-2024 18:22-0400 Heart rate 74 /min Mirian Lepe APRN.BRAKE ADJUSTER Work Phone: [facility] 05-21-2024 18:22-0400 Respiratory rate 16 /min Mirian Lepe APRN.BRAKE ADJUSTER Work Phone: [facility] 05-21-2024 18:22-0400 SaO2% (BldA) [Mass fraction] 96 % Mirian Lepe APRN.BRAKE ADJUSTER Work Phone: [facility] 05-21-2024 18:22-0400 Systolic blood pressure 118 mm[Hg] Mirian Lepe APRN.BRAKE ADJUSTER Work Phone: [facility] 02-16-2024 17:50-0400 Body mass index (BMI) [Ratio] 25.32 kg/m2 Darlyn Shane LIQUOR GALLERY OPERATOR.BRAKE ADJUSTER Work Phone: [facility] 02-16-2024 17:50-0400 Body temperature 97.2 [degF] Darlyn Shane LIQUOR GALLERY OPERATOR.BRAKE ADJUSTER Work Phone: [facility] 02-16-2024 17:50-0400 Body weight 77 kg Darlyn Shane LIQUOR GALLERY OPERATOR.BRAKE ADJUSTER Work Phone: [facility] 02-16-2024 17:50-0400 Diastolic blood pressure 74 mm[Hg] Darlyn Shane LIQUOR GALLERY OPERATOR.BRAKE ADJUSTER Work Phone: [facility] 02-16-2024 17:50-0400 Heart rate 76 /min Darlyn Shane LIQUOR GALLERY OPERATOR.BRAKE ADJUSTER Work Phone: [facility] 02-16-2024 17:50-0400 Respiratory rate 20 /min Darlyn Shane LIQUOR GALLERY OPERATOR.BRAKE ADJUSTER Work Phone: [facility] 02-16-2024 17:50-0400 SaO2% (BldA) [Mass fraction] 98 % Darlyn Shane LIQUOR GALLERY OPERATOR.BRAKE ADJUSTER Work Phone: [facility] 02-16-2024 17:50-0400 Systolic blood pressure 111 mm[Hg] Darlyn Shane LIQUOR GALLERY OPERATOR.BRAKE ADJUSTER Work Phone: [facility] 06-27-2023 15:39-0400 Body height 172.72 cm [facility] 06-27-2023 15:39-0400 Body mass index (BMI) [Ratio] 26.9 kg/m2 [facility] 06-27-2023 15:39-0400 Body temperature 97.3 [degF] [facility] 06-27-2023 15:39-0400 Body weight 80.33 kg [facility] 06-27-2023 15:39-0400 Diastolic blood pressure 80 mm[Hg] [facility] 06-27-2023 15:39-0400 Heart rate 91 /min [facility] 06-27-2023 15:39-0400 Respiratory rate 16 /min [facility] 06-27-2023 15:39-0400 SaO2% (BldA) [Mass fraction] 98 % [facility] 06-27-2023 15:39-0400 Systolic blood pressure 119 mm[Hg] [facility] 06-12-2023 14:44-0400 Body mass index (BMI) [Ratio] 27.1 kg/m2 [facility] 06-12-2023 14:44-0400 Body temperature 97.3 [degF] [facility] 06-12-2023 14:44-0400 Body weight 82.1 kg [facility] 06-12-2023 14:44-0400 Diastolic blood pressure 72 mm[Hg] [facility] 06-12-2023 14:44-0400 Heart rate 112 /min [facility] 06-12-2023 14:44-0400 Respiratory rate 18 /min [facility] 06-12-2023 14:44-0400 SaO2% (BldA) [Mass fraction] 95 % [facility] 06-12-2023 14:44-0400 Systolic blood pressure 121 mm[Hg] [facility] 05-24-2023 09:42-0400 Body height 174.4 cm Demetrice Podlogar LIQUOR GALLERY OPERATOR.BRAKE ADJUSTER Work Phone: [facility] 05-24-2023 09:42-0400 Body weight 84.01 kg Demetrice Podlogar LIQUOR GALLERY OPERATOR.BRAKE ADJUSTER Work Phone: [facility] 05-24-2023 09:42-0400 Diastolic blood pressure 68 mm[Hg] Demetrice Podlogar LIQUOR GALLERY OPERATOR.BRAKE ADJUSTER Work Phone: [facility] 05-24-2023 09:42-0400 Heart rate 86 /min Demetrice Podlogar LIQUOR GALLERY OPERATOR.BRAKE ADJUSTER Work Phone: [facility] 05-24-2023 09:42-0400 Respiratory rate 18 /min Demetrice Podlogar LIQUOR GALLERY OPERATOR.BRAKE ADJUSTER Work Phone: [facility] 05-24-2023 09:42-0400 SaO2% (BldA) [Mass fraction] 92 % Demetrice Podlogar LIQUOR GALLERY OPERATOR.BRAKE ADJUSTER Work Phone: [facility] 05-24-2023 09:42-0400 Systolic blood pressure 112 mm[Hg] Demetrice Podlogar LIQUOR GALLERY OPERATOR.BRAKE ADJUSTER Work Phone: [facility] 07-22-2022 08:49-0500 Body height 173.[address] Adrian Ley Work Phone: [facility] Work Phone: 07-22-2022 08:49-0500 Body mass index (BMI) [Ratio] 30.3 kg/m2 Dr. Adrian Ley Work Phone: [facility] Work Phone: 07-22-2022 08:49-0500 Body weight 91.[address] Adrian Ley Work Phone: [facility] Work Phone: 07-22-2022 08:49-0500 Diastolic blood pressure 73 mm[Hg] Dr. Adrian Ley Work Phone: [facility] Work Phone: 07-22-2022 08:49-0500 Systolic blood pressure 104 mm[Hg] Dr. Adrian Ley Work Phone: [facility] Work Phone: 07-06-2022 14:50-0400 Body temperature 96 [degF] Dr. Adrian Ley Work Phone: [facility] Work Phone: 05-21-2022 10:10-0400 Body height 173.[address] Adrian Ley Work Phone: [facility] Work Phone: 05-21-2022 10:10-0400 Body mass index (BMI) [Ratio] 30.4 kg/m2 Dr. Adrian Ley Work Phone: [facility] Work Phone: 05-21-2022 10:10-0400 Body temperature 97.3 [degF] Dr. Adrian Ley Work Phone: [facility] Work Phone: 05-21-2022 10:10-0400 Body weight 92.[address] Adrian Ley Work Phone: [facility] Work Phone: 05-21-2022 10:10-0400 Diastolic blood pressure 75 mm[Hg] Dr. Adrian Ley Work Phone: [facility] Work Phone: 05-21-2022 10:10-0400 Heart rate 87 /min Dr. Adrian Ley Work Phone: [facility] Work Phone: 05-21-2022 10:10-0400 Respiratory rate 20 /min Dr. Adrian Ley Work Phone: [facility] Work Phone: 05-21-2022 10:10-0400 SaO2% (BldA) [Mass fraction] 94 % Dr. Adrian Ley Work Phone: [facility] Work Phone: 05-21-2022 10:10-0400 Systolic blood pressure 110 mm[Hg] Dr. Adrian Ley Work Phone: [facility] Work Phone: 03-31-2022 15:11-0400 Body temperature 97 [degF] Betsy Malin PA-C Work Phone: [facility] 03-31-2022 15:11-0400 Body weight 89.54 kg Betsy Malin PA-C Work Phone: [facility] 03-31-2022 15:11-0400 Heart rate 103 /min Betsy Agueda PA-C Work Phone: [facility] 03-31-2022 15:11-0400 SaO2% (BldA) [Mass fraction] 96 % Betsy Malin PA-C Work Phone: [facility] 03-24-2022 08:46-0400 Body height 172.7 cm Betsy Malin PA-C Work Phone: [facility] 03-24-2022 08:46-0400 Body temperature 97 [degF] Betsy Malin PA-C Work Phone: [facility] 03-24-2022 08:46-0400 Body weight 88.91 kg Besty Agueda PA-C Work Phone: [facility] 03-24-2022 08:46-0400 Diastolic blood pressure 62 mm[Hg] Betsy Malin PA-C Work Phone: [facility] 03-24-2022 08:46-0400 Heart rate 97 /min Betsy Agueda PA-C Work Phone: [facility] 03-24-2022 08:46-0400 SaO2% (BldA) [Mass fraction] 91 % Betsy Malin PA-C Work Phone: [facility] 03-24-2022 08:46-0400 Systolic blood pressure 108 mm[Hg] Betsy Agueda PA-C Work Phone: [facility] 03-16-2022 08:44-0400 Body height 172.7 cm Kalpana Ivy MD Work Phone: [facility] 03-16-2022 08:44-0400 Body temperature 96.6 [degF] Kalpana Ivy MD Work Phone: [facility] 03-16-2022 08:44-0400 Body weight 89.36 kg Kalpana Ivy MD Work Phone: [facility] 03-16-2022 08:44-0400 Diastolic blood pressure 62 mm[Hg] Kalpana Ivy MD Work Phone: [facility] 03-16-2022 08:44-0400 Heart rate 128 /min Kalpana Ivy MD Work Phone: [facility] 03-16-2022 08:44-0400 SaO2% (BldA) [Mass fraction] 93 % Kalpana Ivy MD Work Phone: [facility] 03-16-2022 08:44-0400 Systolic blood pressure 118 mm[Hg] Kalpana Ivy MD Work Phone: [facility] 03-11-2022 16:25-0400 Heart rate 97 /min Kalpana Ivy MD Work Phone: [facility] 03-11-2022 16:25-0400 Respiratory rate 16 /min Kalpana Ivy MD Work Phone: [facility] 03-11-2022 16:25-0400 SaO2% (BldA) [Mass fraction] 91 % Kalpana Ivy MD Work Phone: [facility] 03-11-2022 16:00-0400 Diastolic blood pressure 64 mm[Hg] Kalpana Ivy MD Work Phone: [facility] 03-11-2022 16:00-0400 Systolic blood pressure 108 mm[Hg] Kalpana Ivy MD Work Phone: [facility] 03-11-2022 14:57-0400 Body temperature 97.3 [degF] Kalpana Ivy MD Work Phone: [facility] 03-09-2022 15:27-0400 Body height 172.7 cm Kalpana Ivy MD Work Phone: [facility] 03-09-2022 15:27-0400 Body temperature 97.81 [degF] Kalpana Ivy MD Work Phone: [facility] 03-09-2022 15:27-0400 Body weight 91.63 kg Kalpana Ivy MD Work Phone: [facility] 03-09-2022 15:27-0400 Diastolic blood pressure 64 mm[Hg] Kalpana Ivy MD Work Phone: [facility] 03-09-2022 15:27-0400 Heart rate 109 /min Kalpana Ivy MD Work Phone: [facility] 03-09-2022 15:27-0400 SaO2% (BldA) [Mass fraction] 97 % Kalpana Ivy MD Work Phone: [facility] 03-09-2022 15:27-0400 Systolic blood pressure 102 mm[Hg] Kalpana Ivy MD Work Phone: [facility] 03-07-2022 15:34-0400 Body height 172.72 cm [facility] Work Phone: 03-07-2022 15:34-0400 Body mass index (BMI) [Ratio] 30.6 kg/m2 [facility] Work Phone: 03-07-2022 15:34-0400 Body temperature 97.1 [degF] [facility] Work Phone: 03-07-2022 15:34-0400 Body weight 91.4 kg [facility] Work Phone: 03-07-2022 15:34-0400 Diastolic blood pressure 85 mm[Hg] [facility] Work Phone: 03-07-2022 15:34-0400 Heart rate 84 /min [facility] Work Phone: 03-07-2022 15:34-0400 Respiratory rate 17 /min [facility] Work Phone: 03-07-2022 15:34-0400 SaO2% (BldA) [Mass fraction] 95 % [facility] Work Phone: 03-07-2022 15:34-0400 Systolic blood pressure 138 mm[Hg] [facility] Work Phone: 02-11-2022 13:42-0400 Body height 172.7 cm Jacob Weinstein MD Work Phone: [facility] 02-11-2022 13:42-0400 Body temperature 97.5 [degF] Jacob Weinstein MD Work Phone: [facility] 02-11-2022 13:42-0400 Body weight 91.63 kg Jacob Weinstein MD Work Phone: [facility] 02-11-2022 13:42-0400 Diastolic blood pressure 58 mm[Hg] Jacob Weinstein MD Work Phone: [facility] 02-11-2022 13:42-0400 Heart rate 110 /min Jacob Weinstein MD Work Phone: [facility] 02-11-2022 13:42-0400 SaO2% (BldA) [Mass fraction] 91 % Jacob Weinstein MD Work Phone: [facility] 02-11-2022 13:42-0400 Systolic blood pressure 98 mm[Hg] Jacob Weinstein MD Work Phone: [facility] 01-14-2022 13:55-0400 Body temperature 97.81 [degF] Jacob Weinstein MD Work Phone: [facility] 01-14-2022 13:55-0400 Body weight 92.53 kg Jacob Weinstein MD Work Phone: [facility] 01-14-2022 13:55-0400 Heart rate 126 /min Jacob Weinstein MD Work Phone: [facility] 01-14-2022 13:55-0400 SaO2% (BldA) [Mass fraction] 96 % Jacob Weinstein MD Work Phone: [facility] 01-05-2022 14:36-0400 Body height 172.7 cm Jacob Weinstein MD Work Phone: [facility] 01-05-2022 14:36-0400 Body temperature 97.59 [degF] Jacob Weinstein MD Work Phone: [facility] 01-05-2022 14:36-0400 Body weight 93.89 kg Jacob Weinstein MD Work Phone: [facility] 01-05-2022 14:36-0400 Diastolic blood pressure 64 mm[Hg] Jacob Weinstein MD Work Phone: [facility] 01-05-2022 14:36-0400 Heart rate 112 /min Jacob Weinstein MD Work Phone: [facility] 01-05-2022 14:36-0400 SaO2% (BldA) [Mass fraction] 95 % Jacob Weinstein MD Work Phone: [facility] 01-05-2022 14:36-0400 Systolic blood pressure 96 mm[Hg] Jacob Weinstein MD Work Phone: [facility] 01-04-2022 15:57-0400 Body weight 93.71 kg Ekta Ley MD Work Phone: [facility] 01-04-2022 15:57-0400 Diastolic blood pressure 78 mm[Hg] Ekta Ley MD Work Phone: [facility] 01-04-2022 15:57-0400 Heart rate 95 /min Ekta Ley MD Work Phone: [facility] 01-04-2022 15:57-0400 Respiratory rate 16 /min Ekta Ley MD Work Phone: [facility] 01-04-2022 15:57-0400 SaO2% (BldA) [Mass fraction] 96 % Ekta Ley MD Work Phone: [facility] 01-04-2022 15:57-0400 Systolic blood pressure 110 mm[Hg] Ekta Ley MD Work Phone: [facility] 12-29-2021 16:06-0400 Body height 174 cm Jacob Weinstein MD Work Phone: [facility] 12-29-2021 16:06-0400 Body temperature 98.01 [degF] Jacob Weinstein MD Work Phone: [facility] 12-29-2021 16:06-0400 Body weight 92.99 kg Jacob Weinstein MD Work Phone: [facility] 12-29-2021 16:06-0400 Diastolic blood pressure 69 mm[Hg] Jacob Weinstein MD Work Phone: [facility] 12-29-2021 16:06-0400 Heart rate 110 /min Jacob Weinstein MD Work Phone: [facility] 12-29-2021 16:06-0400 SaO2% (BldA) [Mass fraction] 96 % Jacob Weinstein MD Work Phone: [facility] 12-29-2021 16:06-0400 Systolic blood pressure 106 mm[Hg] Jacob Weinstein MD Work Phone: [facility] 12-22-2021 15:01-0400 Body height 174 cm Jacob Weinstein MD Work Phone: [facility] 12-22-2021 15:01-0400 Body temperature 97.59 [degF] Jacob Weinstein MD Work Phone: [facility] 12-22-2021 15:01-0400 Body weight 93.44 kg Jacob Weinstein MD Work Phone: [facility] 12-22-2021 15:01-0400 Diastolic blood pressure 70 mm[Hg] Jacob Weinstein MD Work Phone: [facility] 12-22-2021 15:01-0400 Heart rate 107 /min Jacob Weinstein MD Work Phone: [facility] 12-22-2021 15:01-0400 SaO2% (BldA) [Mass fraction] 96 % Jacob Weinstein MD Work Phone: [facility] 12-22-2021 15:01-0400 Systolic blood pressure 120 mm[Hg] Jacob Weinstein MD Work Phone: [facility] 12-18-2021 18:02-0400 Body height 172.72 cm [facility] Work Phone: 12-18-2021 18:02-0400 Body mass index (BMI) [Ratio] 30.9 kg/m2 [facility] Work Phone: 12-18-2021 18:02-0400 Body temperature 97.4 [degF] [facility] Work Phone: 12-18-2021 18:02-0400 Body weight 92.44 kg [facility] Work Phone: 12-18-2021 18:02-0400 Diastolic blood pressure 82 mm[Hg] [facility] Work Phone: 12-18-2021 18:02-0400 Heart rate 98 /min [facility] Work Phone: 12-18-2021 18:02-0400 Respiratory rate 16 /min [facility] Work Phone: 12-18-2021 18:02-0400 SaO2% (BldA) [Mass fraction] 97 % [facility] Work Phone: 12-18-2021 18:02-0400 Systolic blood pressure 121 mm[Hg] [facility] Work Phone: 12-18-2021 08:43-0400 Body height 174 cm Jacob Weinstein MD Work Phone: [facility] 12-18-2021 08:43-0400 Body temperature 97.3 [degF] Jacob Weinstein MD Work Phone: [facility] 12-18-2021 08:43-0400 Body weight 92.99 kg Jacob Weinstein MD Work Phone: [facility] 12-18-2021 08:43-0400 Diastolic blood pressure 60 mm[Hg] Jacob Weinstein MD Work Phone: [facility] 12-18-2021 08:43-0400 Heart rate 110 /min Jacob Weinstein MD Work Phone: [facility] 12-18-2021 08:43-0400 Respiratory rate 14 /min Jacob Weinstein MD Work Phone: [facility] 12-18-2021 08:43-0400 SaO2% (BldA) [Mass fraction] 99 % Jacob Weinstein MD Work Phone: [facility] 12-18-2021 08:43-0400 Systolic blood pressure 110 mm[Hg] Jacob Weinstein MD Work Phone: [facility] 12-17-2021 13:26-0400 Body weight 92.72 kg Yani Puente APRN.BRAKE ADJUSTER Work Phone: [facility] 12-17-2021 13:26-0400 Diastolic blood pressure 60 mm[Hg] Yani Puente APRN.BRAKE ADJUSTER Work Phone: [facility] 12-17-2021 13:26-0400 Systolic blood pressure 102 mm[Hg] Yani Puente APRN.BRAKE ADJUSTER Work Phone: [facility] 12-16-2021 08:45-0400 Body weight 92.53 kg Lina Kenny APRN.CNM Work Phone: [facility] 12-16-2021 08:45-0400 Diastolic blood pressure 62 mm[Hg] Lina Gallolane LIQUOR GALLERY OPERATOR.CNM Work Phone: [facility] 12-16-2021 08:45-0400 Systolic blood pressure 100 mm[Hg] Lina Kenny LIQUOR GALLERY OPERATOR.CNM Work Phone: [facility] 11-27-2021 10:08-0400 Body height 176.5 cm Ekta Ley MD Work Phone: [facility] 11-27-2021 10:08-0400 Body weight 94.35 kg Ekta Ley MD Work Phone: [facility] 11-27-2021 10:08-0400 Diastolic blood pressure 58 mm[Hg] Ekta Ley MD Work Phone: [facility] 11-27-2021 10:08-0400 Heart rate 85 /min Ekta Ley MD Work Phone: [facility] 11-27-2021 10:08-0400 Respiratory rate 18 /min Ekta Ley MD Work Phone: [facility] 11-27-2021 10:08-0400 SaO2% (BldA) [Mass fraction] 93 % Ekta Ley MD Work Phone: [facility] 11-27-2021 10:08-0400 Systolic blood pressure 104 mm[Hg] Ekta Ley MD Work Phone: [facility] 11-02-2021 14:38-0500 Body mass index (BMI) [Ratio] 16 kg/m2 [facility] Work Phone: 11-02-2021 14:38-0500 Body temperature 97.4 [degF] [facility] Work Phone: 11-02-2021 14:38-0500 Body weight 47.99 kg [facility] Work Phone: 11-02-2021 14:38-0500 Diastolic blood pressure 88 mm[Hg] [facility] Work Phone: 11-02-2021 14:38-0500 Heart rate 104 /min [facility] Work Phone: 11-02-2021 14:38-0500 Respiratory rate 16 /min [facility] Work Phone: 11-02-2021 14:38-0500 SaO2% (BldA) [Mass fraction] 95 % [facility] Work Phone: 11-02-2021 14:38-0500 Systolic blood pressure 137 mm[Hg] [facility] Work Phone: Encounters Encounter Date Encounter Type Care Provider Facility Start: 01-14-2025 End: 01-14-2025 Patient encounter procedure Betsy Jalloh MD Work Phone: [facility] Comment on above: Breast abscess (Prim emerita Dx); Mass of upper inner quadrant of left breast Start: 01-14-2025 End: 01-14-2025 ambulatory BETSY JALLOH Facility:[facility] Start: 12-20-2024 End: 12-20-2024 Telephone encounter Betsy Jalloh MD Work Phone: [facility] Comment on above: Patient Question Start: 12-12-2024 End: 12-12-2024 ambulatory CHAN APPLE Facility:[facility] Start: 12-12-2024 End: 12-12-2024 Patient encounter procedure Chan Apple MD Work Phone: [facility] [place] [facility] Comment on above: Left breast abscess (Primary Dx); Actinomyces infection Start: 12-11-2024 End: 12-11-2024 Patient encounter procedure Betsy Jalloh MD Work Phone: [facility] Comment on above: Breast abscess (Prim emerita Dx); Post-operative pain Start: 12-11-2024 End: 12-11-2024 ambulatory BETSY JALLOH Facility:[facility] Start: 12-07-2024 End: 12-07-2024 Telephone encounter Betsy Jalloh MD Work Phone: [facility] Comment on above: Patient Question Post-operative pain (Primary Dx) Start: 12-03-2024 Preprocedural examin ation done Betsy Jalloh MD Work Phone: [facility] Work Phone: Start: 12-03-2024 End: 12-03-2024 ambulatory BETSY JALLOH Facility:[facility] Start: 11-29-2024 End: 11-29-2024 Emergency department patient visit Dr. Adrian Ley MD Work Phone: -Emergency Department Work Phone: Start: 11-28-2024 End: 11-28-2024 Telephone encounter Betsy Jalloh MD Work Phone: [facility] Comment on above: Preparations For Shyann anatoly Start: 11-27-2024 End: 11-27-2024 Orders Only Jordyn Linn [facility] Comment on above: Breast abscess (Prim emerita Dx) Mass of upper inner quadrant of left breast [N63.22] Mass of upper inner quadrant of left breast (Primary Dx); Breast abscess; At high risk for breast cancer Start: 11-21-2024 End: 11-21-2024 Follow-up encounter Ashley Rahman PA-C Work Phone: [facility] Start: 11-20-2024 End: 11-20-2024 Patient encounter procedure Edgard Gómez APRN.CNP Work Phone: [facility] Comment on above: Acute cough (Primary Dx); Head congestion Start: 11-20-2024 End: 11-20-2024 ambulatory EDGARD GÓMEZ Facility:[facility] Start: 11-06-2024 End: 11-06-2024 Patient encounter procedure Betsy Jalloh MD Work Phone: [facility] Comment on above: Mass of upper inner quadrant of left breast (Primary Dx); At high risk for breast cancer Start: 11-06-2024 End: 11-06-2024 ambulatory BETSY JALLOH Facility:[facility] Start: 11-04-2024 End: 11-04-2024 Nurse Triage Lizabeth Almazan RN NURSE COMPUTER AIDED DESIGN TECHNICIAN Comment on above: Refill Request Start: 10-16-2024 ambulatory Darian Goyal Facility: [facility] Start: 09-18-2024 End: 09-18-2024 Emergency department patient visit ED PHYSICIAN PROVIDER -Emergency Department Work Phone: Start: 09-11-2024 End: 09-11-[address] Darian Goyal MD -[facility] Work Phone: Start: 09-11-2024 End: 09-11-2024 ambulatory Adrian Ley Facility:[facility] Start: 08-14-2024 End: 08-14-[address] Darian Goyal MD -[facility] Work Phone: Start: 08-14-2024 End: 08-14-2024 ambulatory Ardian Ley Facility:[facility] Start: 08-06-2024 End: 08-06-2024 Patient encounter procedure Betsy Min PA-C -[facility] Work Phone: Start: 08-06-2024 End: 08-06-2024 ambulatory Betsy DOLL Facility:[facility] Start: 08-06-2024 End: 08-06-2024 ambulatory Betsy DOLL Facility:[facility] Start: 07-10-2024 End: 07-10-2024 ambulatory Darian Goyal Facility:[facility] Start: 07-10-2024 End: 07-10-2024 ambulatory Darian Goyal Facility:[facility] Start: 07-03-2024 End: 07-03-2024 Refill Ekta Ley MD Work Phone: [facility] [place] Comment on above: Refill Request Start: 07-03-2024 End: 07-03-2024 ambulatory Crystal Villasenor Facility:[facility] Start: 06-14-2024 Encounter for gynecological examination (general) (routine) without abnormal findings Crystal Villasenor [facility] Start: 06-14-2024 End: 06-14-2024 ambulatory Crystal Villasenor Facility:[facility] Start: 06-10-2024 End: 06-10-2024 Emergency department patient visit James Sheldon Facility:[facility] Start: 05-21-2024 End: 05-21-2024 ambulatory EKTA LEY Facility:[facility] Start: 05-21-2024 End: 05-21-2024 Patient encounter procedure Mirian Lepe APRN.BRAKE ADJUSTER Work Phone: [facility] Comment on above: Rhinosinusitis (Prim emerita Dx) Start: 04-05-2024 End: 04-05-2024 ambulatory JOSEY CUETO Facility:[facility] Start: 04-05-2024 End: 04-05-2024 Patient encounter procedure Josey Cueto Work Phone: Podiatry Comment on above: Onychomadesis of toe nail (Primary Dx) Start: 03-28-2024 Refill Ekta Ley MD Work Phone: Family [facility] Comment on above: Refill Request Start: 03-09-2024 End: 03-09-2024 ambulatory Wan DOLL Facility:[facility] Start: 02-22-2024 ambulatory Ekta Ley MD Work Phone: Internal Medicine [place] [id number] Start: 02-16-2024 End: 02-16-2024 ambulatory EKTA LEY Facility:[facility] Start: 02-16-2024 End: 02-16-2024 Patient encounter procedure Darlyn Shane APRN.BRAKE ADJUSTER Work Phone: [facility] Comment on above: Sinusitis, unspecifi ed chronicity, unspecified location (Primary Dx) Start: 12-19-2023 Telephone encounter Adrian Ley MD Work Phone: [facility] Comment on above: medication request Start: 12-14-2023 Refill Ekta Ley MD Work Phone: [facility] Comment on above: Refill Request Start: 10-27-2023 End: 10-28-2023 ambulatory AJAY MARCIAL PA-C Facility:[facility] Start: 06-27-2023 End: 06-27-2023 Emergency department patient visit [facility]-Emergency Department Work Phone: Start: 06-27-2023 ambulatory Ekta Lye MD Work Phone: [facility] Comment on above: Headache Start: 06-12-2023 End: 06-12-2023 Emergency department patient visit [facility]-Emergency Department Work Phone: Start: 05-24-2023 End: 05-24-2023 Patient encounter procedure Demetrice Doyle LIQUOR GALLERY OPERATOR.BRAKE ADJUSTER Work Phone: [facility] Comment on above: Annual physical exam (Primary Dx); Mild intermittent asthma without complication; Gastroesophageal reflux disease with esophagitis without hemorrhage; Mixed hyperlipidemia; Encounter for immunization; Tobacco use disorder; Generalized convulsive epilepsy (HCC); Migraine without aura and without status migrainosus, not intractable; Major depressive disorder, remission status unspecified, unspecified whether recurrent Start: 05-20-2023 Refill Ekta Ley MD Work Phone: [facility] Comment on above: Refill Request Start: 05-10-2023 Refill Edgard reyes APRN.BRAKE ADJUSTER Work Phone: [facility] Comment on above: Refill Request; Refi ll Request Start: 03-16-2023 ambulatory Ekta Ley MD Work Phone: [facility] [place] Start: 01-28-2023 Refill Ekta Ley MD Work Phone: [facility] Comment on above: Refill Request Start: 11-05-2022 Refill Ekta Ley MD Work Phone: [facility] Comment on above: Refill Request; Refi ll Request Start: 07-22-2022 End: 07-22-[address] Adrian Ley Work Phone: [facility] Work Phone: Start: 07-22-2022 End: 07-22-[address] Adrian Ley Work Phone: [facility]-Laboratory, Specimen Start: 07-22-2022 End: 07-22-[address] Adrian Ley Work Phone: [facility] Start: 07-06-2022 End: 07-06-[address] Adrian Ley Work Phone: [facility] Work Phone: Start: 07-06-2022 End: 07-06-[address] [facility] Start: 07-06-2022 End: 07-06-[address] Adrian Ley Work Phone: [facility] Start: 06-23-2022 End: 06-23-[address] Adrian Ley Work Phone: [facility] Start: 06-15-2022 End: 06-15-[address] Adrian Ley Work Phone: [facility] Start: 06-07-2022 Refill Ekta Ley MD Work Phone: [facility] Comment on above: Refill Request Start: 06-01-2022 End: 06-01-[address] Adrian Ley Work Phone: [facility] Start: 05-21-2022 End: 05-21-[address] Adrian Ley Work Phone: [facility] Start: 05-13-2022 Refill Ekta Ley MD Work Phone: [facility] Comment on above: Refill Request Start: 04-07-2022 ambulatory Ekta Ley MD Work Phone: Internal Medicine [facility] Start: 03-31-2022 End: 03-31-2022 Patient encounter procedure Betsy Romeo PA-C Work Phone: General Surgery Comment on above: Status post incision and drainage (Primary Dx); Open wound Start: 03-24-2022 End: 03-24-2022 Patient encounter procedure Betsy Romeo PA-C Work Phone: General Surgery Comment on above: Status post incision and drainage (Primary Dx); Open wound of left breast, subsequent encounter Start: 03-16-2022 End: 03-16-2022 Patient encounter procedure Kalpana Ivy MD Work Phone: General Surgery Comment on above: Status post incision and drainage (Primary Dx); Postoperative pain Start: 03-11-2022 End: 03-11-2022 Orders Only Kalpana Ivy MD Work Phone: [facility] PROVID[facility]ULT Comment on above: Postoperative pain ( Primary Dx) Discharge Summary - Kalpana Ivy MD - 03/11/2022 3:13 PM EDT Can also use the following pain regimen Acetaminophen (Tylenol) 650 mg, then in 3-4 hours take 600 mg ibuprofen (Motrin), then in 3-4 hours take 650 mg acetaminophen, then in 3-4 hours take 600 mg ibuprofen and so on and continue this over 1-2 days Take narcotic pain prescribed medication for breakthrough pain and at night Ice packs to the area as tolerated It is normal to have swelling and bruising in the area Ambulation is encouraged. For breast surgeries: Wear supportive bra so as to avoid the weight of your breast from pulling on the operative site Drink plenty of fluids If you are feeling constipated, you make take an over the counter laxatives Sponge bathe only Walking is encouraged Call for a date and time for a follow up appointment on March 15, thank you. Start: 03-09-2022 End: 03-09-2022 Patient encounter procedure Kalpana Ivy MD Work Phone: General Surgery Comment on above: Periductal mastitis of left breast (Primary Dx); Breast abscess Start: 03-09-2022 Telephone encounter Kalpana Howard MD Work Phone: General Surgery Comment on above: Medication Question Start: 03-07-2022 End: 03-07-2022 [facility] Start: 02-11-2022 End: 02-11-2022 Patient encounter procedure Jacob Weinstein MD Work Phone: General Surgery Comment on above: Breast abscess (Prim emerita Dx) Start: 01-14-2022 End: 01-14-2022 Patient encounter procedure Jacob Weinstein MD Work Phone: General Surgery Comment on above: Breast abscess (Prim emerita Dx) Start: 01-11-2022 Telephone encounter Jacob Weinstein MD Work Phone: General Surgery Comment on above: Release Of Medical R ecords (Request for medical records to be faxed to [facility]) Start: 01-05-2022 End: 01-05-2022 Patient encounter procedure Jacob Weinstein MD Work Phone: General Surgery Comment on above: Breast abscess (Prim emerita Dx) Start: 01-04-2022 End: 01-04-2022 Patient encounter procedure Ekta Ley MD Work Phone: [facility] Comment on above: Breast pain, left (P rimary Dx); Breast abscess Start: 12-29-2021 End: 12-29-2021 Patient encounter procedure Jacob Weinstein MD Work Phone: General Surgery Comment on above: Breast abscess (Prim emerita Dx) Start: 12-22-2021 End: 12-22-2021 Patient encounter procedure Jacob Weinstein MD Work Phone: General Surgery Comment on above: Breast abscess (Prim emerita Dx); Hyperglycemia Start: 12-21-2021 Telephone encounter Adrian Ley MD Work Phone: [facility] Comment on above: ER F/U (unable to le ave message mailbox full) Start: 12-18-2021 End: 12-18-2021 Emergency department patient visit [facility] Start: 12-18-2021 Telephone encounter Jacob Weinstein MD Work Phone: General Surgery Comment on above: Patient Question Start: 12-18-2021 End: 12-18-2021 Patient encounter procedure Jacob Weinstein MD Work Phone: General Surgery Comment on above: Cellulitis of left b reast (Primary Dx) Start: 12-17-2021 Telephone encounter Jolene Fco ortiz LIQUOR GALLERY OPERATOR.BRAKE ADJUSTER Work Phone: OB/Gynecology Comment on above: FYI-No Action Needed Start: 12-17-2021 End: 12-17-2021 Patient encounter procedure Yani Puente LIQUOR GALLERY OPERATOR.BRAKE ADJUSTER Work Phone: OB/Gynecology Comment on above: Abscess of breast, l eft (Primary Dx) Start: 12-16-2021 End: 12-16-2021 Patient encounter procedure Lina Kenny LIQUOR GALLERY OPERATOR.CNM Work Phone: OB/Gynecology Comment on above: Breast pain, left (P rimary Dx); Subareolar mass of left breast Start: 12-09-2021 Telephone encounter Adrian Ley MD Work Phone: Family [facility] Comment on above: Results Start: 11-30-2021 End: 11-30-2021 Subsequent hospital visit by physician [facility] Work Phone: Radiology Comment on above: Enlarged thyroid [E0 4.9] Start: 11-27-2021 End: 11-27-2021 Patient encounter procedure Ekta Ley MD Work Phone: [facility] Comment on above: Annual physical exam (Primary Dx); Mild intermittent asthma without complication; Gastroesophageal reflux disease with esophagitis without hemorrhage; Mixed hyperlipidemia; Recurrent major depressive disorder, remission status unspecified (HCC); History of seizures; Tobacco use; Need for COVID-19 vaccine; Enlarged thyroid Start: 11-02-2021 End: 11-02-2021 Emergency department patient visit [facility] Start: 01-11-2019 End: 11-27-2021 Patient requested procedure Darlyn Shane LIQUOR GALLERY OPERATOR.BRAKE ADJUSTER Work Phone: [facility] Start: 08-09-2017 Ambulatory KASI Hansen HERLINDAJEREMY Kuldeep y:[facility] Start: 06-14-2017 Ambulatory [facility] Procedures Date Procedure Procedure Detail Performing Clinician Start: 11-27-2024 Us breast uni real time with image limited Betsy Jalloh MD Work Phone: Start: 08-06-[address] Adrian Ley MD Work Phone: Start: 08-06-[address] Adrian le MD Work Phone: Start: 08-06-2024 Microbial culture, routine Dr. Adrian Ley MD Work Phone: Start: 05-24-2023 INFLUENZA VACCINE, AGE 6 MO - 64 YR, QUADRIVALENT (AFLURIA, FLULAVAL, FLUZONE) Demetrice Podlogar LIQUOR GALLERY OPERATOR.BRAKE ADJUSTER Work Phone: Start: 03-11-2022 End: 03-11-2022 Incision & drainage abscess simple/single Kalpana Ivy MD Work Phone: Start: 03-11-2022 Urine test visual color cmprsn meths Kalpana Ivy MD Work Phone: Start: 12-22-2021 Cul bact xcpt urine blood/stool aerobic isol Jacob Weinstein MD Work Phone: Start: 11-30-2021 Us soft tissue head & neck real time imge docm Ekta Ley MD Work Phone: Start: 11-27-2021 PFIZER-BIONTECH COVID-19 VACCINE, AGE 12+ YR (DÍAZ TOP) Ekta Ley MD Work Phone: Anaerobic microbial culture Dr. Adrian Ley Work Phone: H/O: surgery Status post inci caroline and drainage Kalpana Ivy MD Work Phone: H/O: surgery Status post inci caroline and drainage Betsy Romeo PA-C Work Phone: H/O: surgery Status post inci caroline and drainage Betsy Romeo PA-C Work Phone: Investigation of transfusion reaction Dr. Adrian Ley Work Phone: Microbial culture, routine Dr. Adrian Ley Work Phone: Plan of Treatment Date Care Activity Detail Author Start: 2047 PNEUMOCOCCAL (3 - PPSV23 or PCV20) PNEUMOCOCCAL (3 - PPSV23 or PCV20) [facility] Start: 2047 Pneumococcal vaccination [facility] Start: 2032 Pneumococcal vaccination Pneumococcal Vaccine (3 of 3 - PCV20 or PCV21) [facility] Start: 06-16-2030 Urine microalbumin profile [facility] Start: 11-20-2025 Annual PCP Team Java Application Engineer salma Disease Visit Annual PCP Team Chronic Disease Visit [facility] Start: 07-18-2025 End: 07-18-2025 Patient encounter procedure [facility] Comment on above: diagnostic bilat sarah mogram with luis alfredo and follow up afterwards. Start: 07-03-2025 Screening for malign ant neoplasm of breast Mammogram Screening [facility] Start: 05-06-2025 Influenza vaccination Influenz a Vaccine (Season Ended) [facility] Start: 01-14-2025 End: 01-14-2025 Patient encounter procedure 01/14/2025 10:30 AM EDT Office Visit [facility] [address] [facility] [address] [place] [address] Betsy Jalloh MD [address] [place] [address] 1 month wound check [facility] Comment on above: 1 month wound check Start: 01-01-2025 End: 01-01-2025 ambulatory 01/01/2025 2:30 PM EDT [facility] [place] [facility]ious Disease [address] [place] [address] Chan Apple MD [address] [place] [address] 2-3 wk f/u appt [facility] [place] Comment on above: 2-3 wk f/u appt Start: 12-11-2024 End: 12-11-2024 Patient encounter procedure 12/11/2024 10:15 AM EDT Office Visit [facility] [address] [facility] [address] [place] [address] Betsy Jalloh MD [address] [place] [address] post op surgery [facility] Comment on above: post op surgery Start: 12-03-2024 End: 12-03-2024 Admission to same day surgery center 12/03/2024 1:30 PM EDT - 12/03/2024 3:15 PM EDT [facility] [address] [place] [address] Betsy Jalloh MD [address] [place] [address] OPEN EXCISION OF BREAST LESION UNILATERAL FEMALE BREAST left breast excision of chronic abscess and fistula [facility] Comment on above: OPEN EXCISION OF LORENA AST LESION UNILATERAL FEMALE BREAST left breast excision of chronic abscess and fistula Start: 12-03-2024 End: 12-03-2024 Exc cyst/aberrant breast tissue open 1/> lesion OPEN EXCISION OF BREAST LESION UNILATERAL FEMALE BREAST Breast abscess 12/03/2024 1:30 PM EDT [facility] Start: 12-03-2024 Subsequent hospital visit by physician [facility] Comment on above: Breast abscess [N61. 1] Start: 11-29-2024 [facility] Start: 11-27-2024 End: 11-27-2024 Patient encounter procedure 11/27/2024 1:45 PM EDT Office Visit [facility] [address] [facility] [address] [place] [address] Betsy Jalloh MD [address] [place] [address] ultrasound left breast patient to see afterwards [facility] Comment on above: ultrasound left ro[address] st patient to see afterwards Start: 11-27-2024 End: 11-27-2024 Patient encounter procedure 11/27/2024 12:30 PM EDT Appointment [facility] [address] [place], [place] [id number] ultrasound left breast patient to see afterwards [facility] Comment on above: ultrasound left ro[address] patient to see afterwards Start: 11-06-2024 End: 11-06-2024 Patient encounter procedure 11/06/2024 2:30 PM EST Office Visit [facility] [address] [facility] [address] [place] [address] Betsy Jalloh MD [address] [place] [address] ABscess breast and nipple left [facility] Comment on above: ABscess breast and n ipple left Start: 10-26-2024 HPV TESTING HPV TESTING [facility] Start: 10-26-2024 PAP TESTING PAP TESTING [facility] Start: 10-26-2024 Screening for malign ant neoplasm of cervix [facility] Start: 05-24-2024 Annual PCP Team Java Application Engineer salma Disease Visit Annual PCP Team Chronic Disease Visit [facility] Start: 05-06-2024 Covid-19 Vaccine ( season) Covid-19 Vaccine ( season) [facility] Start: 05-06-2024 Covid-19 Vaccine ( season) Covid-19 Vaccine ( season) [facility] Start: 05-06-2024 Influenza vaccination Influenza Vacc ine (#1) [facility] Start: 06-12-2023 [facility] Start: 05-24-2023 End: 07-24-2023 CBC W Auto Differential panel - Blood CBC + DIFF Lab Routine Annual physical exam Expected: 05/24/2023, Expires: 07/24/2023 [facility] Work Phone: Comment on above: Expected: 05/24/2023 , Expires: 07/24/2023 Start: 05-24-2023 End: 07-24-2023 Comprehensive metabolic 2000 panel - Serum or Plasma COMP METABOLIC PANEL Lab Routine Annual physical exam Mixed hyperlipidemia Expected: 05/24/2023, Expires: 07/24/2023 [facility] Work Phone: Comment on above: Expected: 05/24/2023 , Expires: 07/24/2023 Start: 05-24-2023 End: 07-24-2023 Lipid 1996 panel - Serum or Plasma LIPID PANEL BASIC Lab Routine Annual physical exam Mixed hyperlipidemia Expected: 05/24/2023, Expires: 07/24/2023 [facility] Work Phone: Comment on above: Expected: 05/24/2023 , Expires: 07/24/2023 Start: 05-06-2023 Covid-19 Vaccine ( season) Covid-19 Vaccine ( season) [facility] Start: 05-06-2023 Influenza vaccination [facility] Start: 01-04-2023 ANNUAL PCP TEAM STRIPPER OPAQUER SALMA DISEASE VISIT ANNUAL PCP TEAM CHRONIC DISEASE VISIT [facility] Start: 11-27-2022 ANNUAL PCP TEAM STRIPPER OPAQUER SALMA DISEASE VISIT ANNUAL PCP TEAM CHRONIC DISEASE VISIT [facility] Start: 11-27-2022 SPIROMETRY SPIROMETRY [facility] Comment on above: Postponed from 03/05 (Declined at this time) Start: 07-22-2022 Liquid based cervica l cytology screening [facility] Work Phone: Start: 05-06-2022 Influenza vaccination [facility] Start: 2022 Mammography [facility] Start: 2022 Screening for malign ant neoplasm of breast Mammogram Screening [facility] Start: 03-04-2022 Influenza vaccination INFLUENZA (#1) [facility] Comment on above: Postponed from 05/06 (Declined at this time) Start: 01-22-2022 COVID-19 VACCINE (4 - Booster for Pfizer series) COVID-19 VACCINE (4 - Booster for Pfizer series) [facility] Start: 01-22-2022 COVID-19 VACCINE (4 - Pfizer series) COVID-19 VACCINE (4 - Pfizer series) [facility] Start: 12-23-2021 End: 01-15-2023 Us breast uni real time with image limited US BREAST LTD LT Radiology Routine Breast pain, left Expected: 12/23/2021, Expires: 01/15/2023 [facility] Work Phone: Comment on above: Expected: 12/23/2021 , Expires: 01/15/2023 Start: 12-09-2021 End: 02-08-2022 Comprehensive metabolic 2000 panel - Serum or Plasma COMP METABOLIC PANEL Lab Routine Hyperglycemia Expected: 12/09/2021, Expires: 02/08/2022 [facility] Work Phone: Comment on above: Expected: 12/09/2021 , Expires: 02/08/2022 Start: 12-09-2021 End: 02-08-2022 Hemoglobin A1c/Hemoglobin.total in Blood HGB A1C Lab Routine Hyperglycemia Expected: 12/09/2021, Expires: 02/08/2022 [facility] Work Phone: Comment on above: Expected: 12/09/2021 , Expires: 02/08/2022 Start: 11-27-2021 End: 01-27-2022 CBC panel - Blood by Automated count [facility] Work Phone: Comment on above: Expected: 11/27/2021 , Expires: 01/27/2022 Start: 11-27-2021 End: 01-27-2022 Comprehensive metabolic 2000 panel - Serum or Plasma COMP METABOLIC PANEL Lab Routine Annual physical exam Expected: 11/27/2021, Expires: 01/27/2022 [facility] Work Phone: Comment on above: Expected: 11/27/2021 , Expires: 01/27/2022 Start: 11-27-2021 End: 01-27-2022 LIPID PANEL, NONFASTING LIPID PANEL, NONFASTING Lab Routine Mixed hyperlipidemia Expected: 11/27/2021, Expires: 01/27/2022 [facility] Work Phone: Comment on above: Expected: 11/27/2021 , Expires: 01/27/2022 Start: 11-27-2021 End: 01-27-2022 T4 FREE/FREE THYROX T4 FREE/FREE THYROX Lab Routine Enlarged thyroid Expected: 11/27/2021, Expires: 01/27/2022 [facility] Work Phone: Comment on above: Expected: 11/27/2021 , Expires: 01/27/2022 Start: 11-27-2021 End: 01-27-2022 THYROID PEROXIDASE ANTIBODY BLOOD THYROID PEROXIDASE ANTIBODY BLOOD Lab Routine Enlarged thyroid Expected: 11/27/2021, Expires: 01/27/2022 [facility] Work Phone: Comment on above: Expected: 11/27/2021 , Expires: 01/27/2022 Start: 11-27-2021 End: 01-27-2022 Thyrotropin [Units/volume] in Serum or Plasma TSH BLD Lab Routine Enlarged thyroid Expected: 11/27/2021, Expires: 01/27/2022 [facility] Work Phone: Comment on above: Expected: 11/27/2021 , Expires: 01/27/2022 Start: 04-09-2016 PNEUMOCOCCAL (2 - PCV) PNEUMOCOCCAL (2 - PCV) [facility] Start: 2001 Hepatitis B Vaccine (1 of 3 - 19+ 3-dose series) Hepatitis B Vaccine (1 of 3 - 19+ 3-dose series) [facility] Start: 2000 Anxiety Screening Anxiety Screening [facility] Start: 2000 SPIROMETRY SPIROMETRY [facility] Start: 1982 HEPATITIS B (1 of 3 - 3-dose series) HEPATITIS B (1 of 3 - 3-dose series) [facility] Start: 1982 Hepatitis B Vaccine (1 of 3 - 3-dose series) Hepatitis B Vaccine (1 of 3 - 3-dose series) [facility] Bacteria identified in Wound by Culture WOUND CULTURE AND GRAM STAIN Microbiology Routine Breast abscess 12/22/2021 3:49 PM EDT [facility] Work Phone: Bacteria identified in Wound by Culture WOUND CULTURE AND GRAM STAIN Microbiology Routine 03/11/2022 3:01 PM EDT [facility] Work Phone: COVID & INFLUENZA A/ B & RSV PCR, ROUTINE COVID & INFLUENZA A/B & RSV PCR, ROUTINE Microbiology Routine Acute cough Head congestion 11/20/2024 3:23 PM EDT [facility] Work Phone: End: 02-13-2026 DBT Breast - bilateral diagnostic for implant SARAH DIAG W LUIS ALFREDO BILATERAL Radiology Routine Mass of upper inner quadrant of left breast 1 Occurrences starting 01/14/2025 until 02/13/2026 [facility] Work Phone: Comment on above: 1 Occurrences starti ng 01/14/2025 until 02/13/2026 End: 03-23-2025 DBT Breast - bilateral screening SARAH SCREENING W LUIS ALFREDO Radiology Routine Encounter for screening mammogram for breast cancer 1 Occurrences starting 02/22/2024 until 03/23/2025 [facility] Work Phone: Comment on above: 1 Occurrences starti ng 02/22/2024 until 03/23/2025 End: 01-15-2023 Diagnostic mammography computer-aided detcj bi SARAH DIAGNOSTIC BILAT Radiology Routine Breast pain, left 1 Occurrences starting 12/16/2021 until 01/15/2023 [facility] Work Phone: Comment on above: 1 Occurrences starti ng 12/16/2021 until 01/15/2023 Exc cyst/aberrant breast tissue open 1/> lesion OPEN EXCISION OF BREAST LESION UNILATERAL FEMALE BREAST Breast abscess [facility] OR H&P for surgery H&P FOR SURGERY Procedures Routine Breast abscess Ordered: 11/27/2024 [facility] Work Phone: Comment on above: Ordered: 11/27/2024 End: 04-14-2024 SARAH SCREENING SARAH SCREENING Radiology Routine Encounter for screening mammogram for breast cancer 1 Occurrences starting 03/16/2023 until 04/14/2024 [facility] Work Phone: Comment on above: 1 Occurrences starti ng 03/16/2023 until 04/14/2024 Path report.final Dx Spec [facility] Work Phone: Patient Education [facility] Work Phone: Patient referral [facility] Work Phone: End: 05-07-2023 Screening mammography bi 2-view breast inc cad SARAH SCREENING Radiology Routine Encounter for screening mammogram for breast cancer 1 Occurrences starting 04/07/2022 until 05/07/2023 [facility] Work Phone: Comment on above: 1 Occurrences starti ng 04/07/2022 until 05/07/2023 SURGICAL PATHOLOGY [facility] Work Phone: Comment on above: Release Upon Orderin g for 1 Occurrences starting 03/11/2022 End: 12-06-2025 US Breast - left limited US BREAST LTD LEFT Radiology Routine Mass of upper inner quadrant of left breast 1 Occurrences starting 11/06/2024 until 12/06/2025 [facility] Work Phone: Comment on above: 1 Occurrences starti ng 11/06/2024 until 12/06/2025 End: 12-27-2022 Us soft tissue head & neck real time imge docm US THYROID/PARATHYROID Radiology Routine Enlarged thyroid 1 Occurrences starting 11/27/2021 until 12/27/2022 [facility] Work Phone: Comment on above: 1 Occurrences starti ng 11/27/2021 until 12/27/2022 [facility] Immunizations Immunization Date Immunization Notes Care Provider Yolanda ledezma 05-24-2023 influenza, injectabl e, quadrivalent, contains preservative Demetrice Doyle APRN.CNP Work Phone: [facility] 05-24-2023 influenza virus vaccine, unspecified formulation Ekta Ley MD Work Phone: [facility] 11-27-2021 COVID-19 vaccine, ag e 12+ yr (PFIZER-BIONTECH - [facility]) Ekta Ley MD Work Phone: [facility] 09-30-2020 influenza, injectabl e, quadrivalent, contains preservative Ekta Ley MD Work Phone: [facility] 06-16-2020 tetanus toxoid, redu marie diphtheria toxoid, and acellular pertussis vaccine, adsorbed Ekta Ley MD Work Phone: [facility] 08-30-2019 influenza, injectabl e, quadrivalent, contains preservative Ekta Ley MD Work Phone: [facility] 02-21-2019 RHO(D) immune globul in- IV or IM Ekta Ley MD Work Phone: [facility] Work Phone: 09-30-2017 influenza, injectabl e, quadrivalent, contains preservative Ekta Ley MD Work Phone: [facility] 05-27-2016 influenza, injectabl e, quadrivalent, contains preservative Ekta Ley MD Work Phone: [facility] Work Phone: 04-09-2015 pneumococcal conjuga te vaccine, 13 valent Ekta Ley MD Work Phone: [facility] 04-09-2015 pneumococcal polysaccharide vaccine, 23 valent Ekta Ley MD Work Phone: [facility] 11-06-2011 tetanus toxoid, redu marie diphtheria toxoid, and acellular pertussis vaccine, adsorbed Ekta Ley MD Work Phone: [facility] 06-24-2011 influenza virus vaccine, unspecified formulation Ekta Ley MD Work Phone: [facility] Work Phone: 06-24-2011 RHO(D) immune globul in- IV or IM Ekta Ley MD Work Phone: [facility] Work Phone: 07-08-2009 novel [id number], all formulations Ekta Ley MD Work Phone: [facility] Work Phone: 07-04-2009 influenza virus vaccine, unspecified formulation Ekta Ley MD Work Phone: [facility] Work Phone: 05-03-2008 human papilloma viru s vaccine, quadrivalent Ekta Ley MD Work Phone: [facility] Work Phone: 01-02-2008 human papilloma viru s vaccine, quadrivalent Ekta Ley MD Work Phone: [facility] Work Phone: 11-03-2007 human papilloma viru s vaccine, quadrivalent Ekta Ley MD Work Phone: [facility] 07-11-2007 influenza virus vaccine, unspecified formulation Ekta Ley MD Work Phone: [facility] 07-01-2006 influenza virus vaccine, unspecified formulation Ekta Ley MD Work Phone: [facility] Payers Date Payer Category Payer Self-pay [id number] 2017 Medicaid [id number] 2017 Medicaid [employer] [id number] 2017-Present [phone] [address] [place] [address] Medicaid [id number] 2017 Medicaid [id number] 2013 [id number] 1980 Unknown [id number] Unknown [id number] Unknown [id number] Unknown [id number] [id number] Unknown [id number] [id number] Unknown [id number] [id number] Unknown [id number] [id number] Unknown [id number] [id number] Unknown [id number] [id number] Unknown [id number] [id number] Unknown [id number] [id number] Unknown [id number] [id number] Unknown [id number] [id number] Unknown [id number] [id number] Unknown [id number] [id number] Unknown [id number] Social History Date Type Detail Facility Start: 11-27-2021 End: 12-03-2024 Tobacco smoking status COIS Smokes tobacco daily [facility] History of tobacco use Cigarette Smoker [facility] Work Phone: Start: 11-27-2021 End: 01-14-2025 Alcohol intake Current non-drinker of alcohol (finding) [facility] Start: 10-26-2019 History SDOH Social Connections Phone 5 [facility] Start: 10-26-2019 History SDOH Social Connections Get Together 2 [facility] Start: 10-26-2019 History SDOH Social Connections Worship 1 [facility] Start: 10-26-2019 History SDOH Social Connections Living 8 [facility] Start: 10-26-2019 History SDOH Physica l Activity DPW 7 [facility] Start: 01-11-2019 End: 03-01-2023 Tobacco Comment 3 cigarettes a day [facility] Start: 1980 Sex Assigned At Not on file [facility] Start: 11-16-2021 End: 03-31-2022 Exposure to SARS-CoV-2 (event) Not sure [facility] Start: 12-18-2021 End: 06-12-2023 Tobacco smoking status NHIS Unknown if ever smoked [facility] Start: 03-28-2021 None [facility] Start: 03-28-2021 Cigarettes [facility] Start: 1980 Sex Assigned At Female W [facility] Start: 11-27-2021 End: 02-03-2023 Cigarettes smoked current (pack per day) - Reported 0.5 [facility] Start: 11-27-2021 End: 12-03-2024 Tobacco use and exposure Smokeless tobacco non-user [facility] Work Phone: Start: 02-03-2023 End: 03-01-2023 Tobacco use panel [facility] National Score (1-10 0), lower number is lower risk 89 [facility] Do you belong to any clubs or organizations such as christianity groups, unions, fraternal or athletic groups, or school groups? No [facility] Are you now , , , , never or living with a partner? Living with partner [facility] Do you feel stress - tense, restless, nervous, or anxious, or unable to sleep at night because your mind is troubled all the time - these days [OSQ] Not at all [facility] (I/We) worried wheth er (my/our) food would run out before (I/we) got money to buy more. Never true [facility] Start: 11-29-2024 Tobacco smoking stat us NHIS Current Light tobacco smoker [facility] Start: 11-29-2024 Sex Female (finding) [facility] Functional Status Date Assessment Result Facility 04-09-2015 Are you deaf, or do you have serious difficulty hearing No 04/09/2015 8:05 AM EDT Leann Brennan [facility]ma No [facility] 04-09-2015 Are you blind, or do you have serious difficulty seeing, even when wearing glasses No 04/09/2015 8:05 AM EDT Leann Brennan [facility] 04-09-2015 Do you have serious difficulty walking or climbing stairs No 04/09/2015 8:05 AM EDT Leann Brennan [facility] 04-09-2015 Do you have difficul ty dressing or bathing No 04/09/2015 8:05 AM EDT Leann Brennan [facility] 04-09-2015 Because of a physica l, mental, or emotional condition, do you have difficulty doing errands alone such as visiting a physician's office or shopping No 04/09/2015 8:05 AM EDT Leann Brennan [facility] Mental Status Date Assessment Result Facility 04-09-2015 Because of a physica l, mental, or emotional condition, do you have serious difficulty concentrating, remembering, or making decisions No 04/09/2015 8:05 AM EDT [facility] Clinical Notes 01-11-2019 to 01-14-2025 Betsy Jalloh MD - 01/14/2025 10:14 AM Jennifer Fuentes LPN - 01/14/2025 10:09 AM EDTTelephone Encounter - Yani Snowden APRN.SHYANNE - 12/20/2024 3:39 PM EDTPatient Instructions Note Date & Type Note Facility 01-14-2025 Note HNO ID: [id number] Author: BETSY JALLOH MD Service: ? Author Type: Physician Type: Progress Notes Filed: 01/14/2025 10:25 Note Text: Ms Concepcion is a 44 year old female here today for wound check. She is status post excision of left breast periareolar fistula on 12/03/24. Pathology returned inflammation. Cultures growing actinomyces. Left breast incision intact. No current drainage. Erythema resolved. On doxy. Saw ID who agreed with [facility] doxy for now. Discussed importance of smoking cessation for resolution of infection. Lifetime risk 22.6%, Breast density BIRADS B. Due for mammograms in 6 months. No tamoxifen given current smoking. Follow up with AEROSOL LINE OPERATOR. Besty Jalloh MD [facility] 01-14-2025 History of Presen t illness Narrative Ms Concepcion is a 44 year old female here today for wound check. She is status post excision of left breast periareolar fistula on 12/03/24. Pathology returned inflammation. Cultures growing actinomyces. Left breast incision intact. No current drainage. Erythema resolved. On doxy. 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 Discussed importance of smoking cessation for resolution of infection. Lifetime risk 22.6%, Breast density BIRADS B. Due for mammograms in 6 months. No tamoxifen given current smoking. Follow up with AEROSOL LINE OPERATOR. Betsy Jalloh MD Patient here for one month follow up .Patient stated she is some drainage not a lot .Pain is intermittent. Jennifer Rahman LPN documented in this encounter [facility] 01-14-2025 Note HNO ID: [id number] Author: JENNIFER RAHMAN LPN Service: ? Author Type: LICENSED NURSE Type: Progress Notes Filed: 01/14/2025 10:25 Note Text: Patient here for one month follow up .Patient stated she is some drainage not a lot .Pain is intermittent. Jennifer Rahman LPN [facility] 12-20-2024 Telephone encounter Note I spoke with Griselda. She does a lot of heavy lifting with bilateral arm movement at her job. She also wanted to go back to work because she is getting bored at home. Encouraged to remain off work for time that Dr Jalloh originally recommended due to the nature of her job. She is agreeable and will keep follow up with Dr Jalloh as scheduled 01/14. [facility] Work Phone: 12-20-2024 Miscellaneous Notes I spoke with Griselda. She does a lot of heavy lifting with bilateral arm movement at her job. She also wanted to go back to work because she is getting bored at home. Encouraged to remain off work for time that Dr Jalloh originally recommended due to the nature of her job. She is agreeable and will keep follow up with Dr Jalloh as scheduled 01/14. Summary: pt question Pt states her current post op recommendations were to not return to work for two more weeks. She states her redness and drainage have resolved and she would like to return next week. I told patient she would probably need to be seen before a provider would feel comfortable releasing her back to work. Please advise. Gerardo Farrar RN documented in this encounter [facility] 12-20-2024 Telephone encounter Note Summary: pt question Pt states her current post op recommendations were to not return to work for two more weeks. She states her redness and drainage have resolved and she would like to return next week. I told patient she would probably need to be seen before a provider would feel comfortable releasing her back to work. Please advise. Gerardo Farrar RN [facility] 12-12-2024 Instructions Chan Apple MD - 12/12/2024 9:30 AM EDT - to go to the lab - call me with updates on TuesdayDecember 17 - f/u virtually after 2-3 wks - continue Doxycycline as prescribed by Dr. Jalloh documented in this encounter [facility] 12-12-2024 Note HNO ID: [id number] Author: CHAN APPLE MD Service: ? Author Type: Physician Type: Progress Notes Filed: 12/12/2024 11:54 Note Text: SERVICE DATE: 12/12/2024 SERVICE TIME: 8:50 AM We were asked to evaluate Ms. Griselda Concepcion, a 44 year old yo female by Dr. Jalloh for Breast abscess. Our findings and recommendations will be communicated through the shared medical record. 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 We discussed the available antibiotic options for treating Actinomycosis. We considered the possibility of using a PICC line for IV antibiotics but decided to hold off due to a skin rash on the upper extremities. As her mother has reported, the patient will see a investigation clerk for evaluation soon. Regarding amoxicillin, the patient had difficulty tolerating it, primarily due to stomach upset and concerns about breakthrough seizures. Since she had already received a 6-week supply of Doxycycline, which was prescribed yesterday and is effective against Actinomyces, we decided she would continue with Doxycycline monotherapy for now. We will check her CBC, CMP, and CRP for baseline measurements. She is instructed to call me next week with updates. ID Clinic f/u after 2-3 wks. ======= SUBJECTIVE: Griselda Concepcion is a 44-year-old female who is here today for treatment of a chronic left breast infection. Her past medical history is significant for epilepsy (both grand mal and petit mal), depression, migraines, Botox treatments, and a history of chronic left breast abscess. In December 2021, she was diagnosed with left breast cellulitis and an abscess. Initially, she underwent an ultrasound-guided aspiration of the abscess, from which only a small amount of pus was obtained. The culture revealed rare Actinomyces turicensis. She was treated with cephalexin and clindamycin. Subsequently, she had a surgical incision and drainage of the residual abscess performed by Dr. Jacob Weinstein on December 30, 2021. Since that time, she has undergone multiple needle aspirations and several short courses of oral antibiotics, including Augmentin. Despite this treatment, the left subareolar breast swelling has persisted, and intermittent pus continues to drain from the sinus tract. Additionally, the swelling remains painful. On August 06, 2024, she underwent a repeat incision and drainage of her left breast abscess due to increased soreness and warmth at the site, as noted by [facility]. The culture revealed the presence of Actinomyces species, Clostridium group, and Staphylococcus hominis. She was prescribed doxycycline for 10 days, followed by amoxicillin 875 mg twice daily for 7 weeks. However, she was unable to take either of these antibiotics due to stomach upset and concerns about breakthrough seizures. 11/27/2024: Dr. Jalloh examined the patient, and a new ultrasound revealed an irregularly shaped fluid collection with significant peripheral vascularity. There was also a clear skin tract measuring 1.5 x 0.6 x 0.9 cm. 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 The tissue culture obtained during surgery grew Actinomyces turicensis. The surgical pathology report of the excised fistula indicated skin with patchy epidermal acute inflammation and abundant dermal chronic inflammation. On 12/11, the patient was prescribed a course of doxycycline at a dosage of 100 mg twice daily for six weeks. Today, the patient reports persistent swelling and pain at the surgical wound site. The wound continues to drain serosanguinous fluid intermittently. However, the redness of surrounding skin has shown overall improvement. The patient denies experiencing fever or chills and has been tolerating doxycycline well since yesterday, with no reported stomach upset, abdominal pain, vomiting, or diarrhea. ROS significant for unintentional weight loss, intermittent headache, and nonpruritic skin lesions over her extremities. Smokes cigarettes. Denied using alcohol. Has 2 pet dogs. Used to have cats. PAST MEDICAL HISTORY Diagnosis Date Abnormal glandular Papanicolaou smear of cervix 02/18/2009 Abn. Pap smear (cervix), f/u with women's health Asthma (HCC) Brain lesion Dr. Moya Breast abscess 12/2021 Left Breast Class 1 obesity due to excess calories without serious comorbidity with body mass index (BMI) of 30.0 to 30.9 in adult Depression 03/14/2003 Dysmenorrhea Dysthymic disorder Depression (non-psychotic) Excessive or frequent menstruation Generalized convulsive epilepsy without mention of intractable epilepsy sei (more content not included)... [facility] 12-12-2024 History of Presen t illness Narrative Images from the original note were not included. SERVICE DATE: 12/12/2024 SERVICE TIME: 8:50 AM We were asked to evaluate Ms. Griselda Concepcion, a 44 year old yo female by Dr. Jalloh for Breast abscess. Our findings and recommendations will be communicated through the shared medical record. 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 We discussed the available antibiotic options for treating Actinomycosis. We considered the possibility of using a PICC line for IV antibiotics but decided to hold off due to a skin rash on the upper extremities. As her mother has reported, the patient will see a investigation clerk for evaluation soon. Regarding amoxicillin, the patient had difficulty tolerating it, primarily due to stomach upset and concerns about breakthrough seizures. Since she had already received a 6-week supply of Doxycycline, which was prescribed yesterday and is effective against Actinomyces, we decided she would continue with Doxycycline monotherapy for now. We will check her CBC, CMP, and CRP for baseline measurements. She is instructed to call me next week with updates. ID Clinic f/u after 2-3 wks. ======= SUBJECTIVE: Griselda Concepcion is a 44-year-old female who is here today for treatment of a chronic left breast infection. Her past medical history is significant for epilepsy (both grand mal and petit mal), depression, migraines, Botox treatments, and a history of chronic left breast abscess. In December 2021, she was diagnosed with left breast cellulitis and an abscess. Initially, she underwent an ultrasound-guided aspiration of the abscess, from which only a small amount of pus was obtained. The culture revealed rare Actinomyces turicensis. She was treated with cephalexin and clindamycin. Subsequently, she had a surgical incision and drainage of the residual abscess performed by Dr. Jacob Weinstein on December 30, 2021. Since that time, she has undergone multiple needle aspirations and several short courses of oral antibiotics, including Augmentin. Despite this treatment, the left subareolar breast swelling has persisted, and intermittent pus continues to drain from the sinus tract. Additionally, the swelling remains painful. On August 06, 2024, she underwent a repeat incision and drainage of her left breast abscess due to increased soreness and warmth at the site, as noted by [facility]. The culture revealed the presence of Actinomyces species, Clostridium group, and Staphylococcus hominis. She was prescribed doxycycline for 10 days, followed by amoxicillin 875 mg twice daily for 7 weeks. However, she was unable to take either of these antibiotics due to stomach upset and concerns about breakthrough seizures. 11/27/2024: Dr. Jalloh examined the patient, and a new ultrasound revealed an irregularly shaped fluid collection with significant peripheral vascularity. There was also a clear skin tract measuring 1.5 x 0.6 x 0.9 cm. 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 The tissue culture obtained during surgery grew Actinomyces turicensis. The surgical pathology report of the excised fistula indicated skin with patchy epidermal acute inflammation and abundant dermal chronic inflammation. On 12/11, the patient was prescribed a course of doxycycline at a dosage of 100 mg twice daily for six weeks. Today, the patient reports persistent swelling and pain at the surgical wound site. The wound continues to drain serosanguinous fluid intermittently. However, the redness of surrounding skin has shown overall improvement. The patient denies experiencing fever or chills and has been tolerating doxycycline well since yesterday, with no reported stomach upset, abdominal pain, vomiting, or diarrhea. ROS significant for unintentional weight loss, intermittent headache, and nonpruritic skin lesions over her extremities. Smokes cigarettes. Denied using alcohol. Has 2 pet dogs. Used to have cats. PAST MEDICAL HISTORY Diagnosis Date Abnormal glandular Papanicolaou smear of cervix 02/18/2009 Abn. Pap smear (cervix), f/u with women's health Asthma (HCC) Brain lesion Dr. 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 : 11/27/2022 Missed (HCC) Reflex sympathetic dystrophy of other specified site left arm Seasonal allergies Thyroid disease PAST SURGICAL HISTORY Procedure Laterality Date BREAST SURGERY HX Left 12/03/2024 BX OF BREAST; INCISIONAL Left 05/2024 BX OF BREAST; INCISIONAL Left 2021 EXCISION GANGLION WRIST DORSAL/VOLAR PRIMARY I&D HEMATOMA SEROMA/FLUID COLLECTION 12/30/2021 left breast INCISION AND DRAINAGE PROCEDURE (W NOTE) Left 03/11/2022 breast PAST SURGICAL HISTORY OF LEFT ARM, CYST Removed PAST SURGICAL HISTORY OF LEEP PAST SURGICAL HISTORY OF 04/2012, 2016 left foot surgery TONSILLECTOMY PRIMARY/SECONDARY <AGE 14 Tonsillectomy Social History Tobacco Use Smoking status: Every Day Current packs/day: 0.50 Average packs/day: 0.5 packs/day for 18.0 years (9.0 ttl pk-yrs) Types: Cigarettes Smokeless tobacco: Never Vaping Use Vaping status: Never Used Substance Use Topics Alcohol use: No Drug use: No FAMILY HISTORY Problem Relation Age of Onset Cancer Mother UTERINE Hypertension Mother Lipids Mother Lipids Father other (clot in heart) Father No Known Problems Sister No Known Problems Sister No Known Problems Brother Heart Maternal Grandmother ANGINA Hypertension Maternal Grandmother Diabetes Maternal Grandmother Dementia Maternal Grandmother No Known Problems Maternal Grandfather Hypertension Paternal Grandmother Seizures Daughter Aneurysm Maternal Aunt 2 aunts other (arteriovenous malformation) Maternal Aunt Breast Cancer Paternal Aunt Ovarian cancer No Family History There are no active hospital problems to display for this patient. ALLERGIES Allergen Reactions Erythromycin Base GI Upset Ketorolac Trometham* Rash Naproxen Rash Tramadol GI Upset Current Outpatient Medications Medication Sig doxycycline hyclate (VIBRAMYCIN) 100 mg capsule Take 1 capsule by mouth two times a day. HYDROcodone-acetaminophen (NORCO) 5-325 mg per tablet Take 1 tablet by mouth two times a day for 4 days. famotidine (PEPCID) 20 mg tablet Take 1 tablet by mouth two times a day. albuterol HFA (VENTOLIN HFA) 90 mcg/actuation inhaler Inhale 2 Puffs as instructed every 4 hours as needed for wheezing/shortness of breath. sertraline (ZOLOFT) 50 mg tablet Take 1 tablet by mouth once daily. atorvastatin (LIPITOR) 80 mg tablet Take 1 tablet by mouth daily at bedtime. For cholesterol. cetirizine (ZYRTEC) 10 mg tablet Take 1 tablet by mouth once daily. fluticasone (FLONASE) 50 mcg/actuation nasal spray Use 2 Sprays in each nostril once daily. Rinse mouth after use. folic acid 1 mg tablet Take by mouth. takes 4 tabs once a day pyridoxine HCl, vitamin B6, (VITAMIN B-6 ORAL) Take 1 tablet by mouth once daily. SUMAtriptan (IMITREX) 50 mg tablet Take 50 mg by mouth as needed. levETIRAcetam (KEPPRA) 750 mg tablet Take 1.5 tablets by mouth twice daily. No current facility-administered medications for this visit. REVIEW OF SYSTEMS GENERAL: Unintentional weight loss HEENT: No changes in hearing or vision, no nose bleeds or other nasal problems NECK: Negative for lumps, goiter, pain and significant neck swelling RESPIRATORY: Negative for cough, hemoptysis, wheezing, COPD, dyspnea or shortness of breath CARDIOVASCULAR: Negative for chest pain, leg swelling, hypertension, CHF or palpitations GI: No nausea, vomiting, or diarrhea : No history of dysuria, frequency or incontinence MUSCULOSKELETAL: No new joint pain SKIN: See HPI HEMATOLOGY/LYMPHOLOGY: No external bleeding NEURO: Migraine headaches OBJECTIVE: BP 132/78 Pulse 78 Temp (Src) 97.8 (Temporal) Resp 16 Ht 5' 8.5 (1.74m) Wt 153 lb 7 oz (69.6kg) SpO2 98% LMP 11/27/2024 BMI 22.99 kg/(m^2). PHYSICAL EXAM: General Appearance: Well appearing, alert, in no acute distress Skin: Multiple small skin ulcers with hyperpigmentation present on both upper extremities and lower extremities distally. Some excoriation cabezas also noted. L breast surgical wound covered with dry secretions and surrounding induration. Head: Normocephalic, no masses, lesions, tenderness or abnormalities. Eyes: Anicteric sclera. Pupils are equally round and reactive to light. Oropharynx: Lips, mucosa, and tongue normal, teeth and gums normal, oropharynx normal. Tongue ring present. Neck: Supple, no adenopathy Lungs: Lungs clear to auscultation. No wheezing, rhonchi, rales. Heart: RRR without murmur, gallop, or rubs. No ectopy. Abdomen: Normal abdominal exam, Abdomen soft, non-tender. Bowel sounds normal. Extremities: No pedal edema. LABS: WBC (k/uL) Date Value 05/26/2023 9.32 11/30/2021 7.71 08/30/2019 8.62 01/15/2019 11.35 05/17/2018 10.76 12/31/2014 9.61 05/24/2001 10.64 Creatinine (mg/dL) Date Value 05/26/2023 0.69 11/30/2021 0.64 11/12/2020 0.78 08/30/2019 0.74 01/15/2019 0.65 05/17/2018 0.73 01/29/2016 0.71 Lab Results Component Value Date NEUTP 59.7 05/26/2023 NEUTP 54.3 12/31/2014 ABSNEUT 5.55 05/26/2023 ABSNEUT 5.22 12/31/2014 LYMPHP 31.4 05/26/2023 LYMPHP 36.2 12/31/2014 ABSLYMPH 2.93 05/26/2023 ABSLYMPH 3.48 12/31/2014 ABSMONO 0.59 05/26/2023 ABSMONO 0.64 12/31/2014 EODINP 2.0 05/26/2023 EODINP 2.5 12/31/2014 ABSEOSIN 0.19 05/26/2023 ABSEOSIN 0.24 12/31/2014 BASOP 0.4 05/26/2023 BASOP 0.3 12/31/2014 ABSBASO 0.04 05/26/2023 ABSBASO 0.03 12/31/2014 Lab Results Component Value Date PLT 248 05/26/2023 PLT 236 08/30/2019 HB 14.7 05/26/2023 HB 14.0 08/30/2019 HCT 43.7 05/26/2023 HCT 42.9 08/30/2019 ALB 3.3 05/26/2023 ALB 3.4 11/12/2020 CA 9.0 05/26/2023 CA 9.1 11/12/2020 TBILI 0.2 05/26/2023 TBILI <0.2 11/12/2020 ALKPHOS 88 05/26/2023 ALKPHOS 91 11/12/2020 AST 10 05/26/2023 AST 15 11/12/2020 GLUC 90 05/26/2023 GLUC 95 11/12/2020 BUN 5 05/26/2023 BUN 8 11/12/2020 NA 139 05/26/2023 NA 137 11/12/2020 K 3.9 05/26/2023 K 3.9 11/12/2020 CHLOR 106 05/26/2023 CHLOR 104 11/12/2020 CO2 27 05/26/2023 CO2 25 11/12/2020 ANION 6 05/26/2023 ANION 8 11/12/2020 ALT 5 05/26/2023 ALT 9 11/12/2020 WSR (mm/hr) Date Value 12/24/2011 15 DATA: Diagnostic Tests Reviewed for Today's Visit: Most recent labs reviewed Most recent imaging Thank you very much for inviting us to participate in the care of this patient. Dictation software has been used to create this note. Seeming errors in the note should be considered accordingly. MEDICAL DECISION MAKING: I have spent 60 minutes with this patient, >50% of time spent in a face to face encounter. This included time spent on counseling including lab results, diagnostic testing, medications, further management planning, prognosis, risks and benefits of treatment options. All questions were answered to the patient and/or family members satisfaction. Chan Apple MD Infectious Disease [facility] [place] Pager: [phone] December 12, 2024 documented in this encounter [facility] 12-11-2024 Note HNO ID: [id number] Author: BETSY JALLOH MD Service: ? Author Type: Physician Type: Progress Notes Filed: 12/12/2024 08:26 Note Text: Ms Concepcion is a 44 year old female here today for post op. She is status post excision of left breast periareolar fistula on 12/03/24. Pathology returned inflammation. Cultures growing actinomyces. Left breast incision intact. No current drainage. Erythema 6 cm x 10 cm upper inner quadrant. No fluctuance. Discussed treatment with doxy. Patient has had difficulty completed antibiotic regimen in the past. Refer to infectious disease. Had oxy post op but too strong. Can try norco. Follow up for wound check in 1 month or sooner if needed. Discussed importance of smoking cessation for resolution of infection. Betsy Jalloh MD [facility] 12-11-2024 History of Presen t illness Narrative Ms Concepcion is a 44 year old female here today for post op. She is status post excision of left breast periareolar fistula on 12/03/24. Pathology returned inflammation. Cultures growing actinomyces. Left breast incision intact. No current drainage. Erythema 6 cm x 10 cm upper inner quadrant. No fluctuance. Discussed treatment with doxy. Patient has had difficulty completed antibiotic regimen in the past. Refer to infectious disease. Had oxy post op but too strong. Can try norco. Follow up for wound check in 1 month or sooner if needed. Discussed importance of smoking cessation for resolution of infection. Betsy Jalloh MD Patient here for post op visit.Patient relates incision is draining yellow bloody color and intact.Patient stated incision is red and painful 9/10 left breast.Patient stated site has a smell. Jennifer Rahman LPN documented in this encounter [facility] 12-11-2024 Note HNO ID: [id number] Author: JENNIFER RAHMAN LPN Service: ? Author Type: LICENSED NURSE Type: Progress Notes Filed: 12/12/2024 08:26 Note Text: Patient here for post op visit.Patient relates incision is draining yellow bloody color and intact.Patient stated incision is red and painful 9/10 left breast.Patient stated site has a smell. Jennifer Rahman LPN [facility] 12-07-2024 Telephone encounter Note I spoke with patient. Prescription sent. [facility] Work Phone: 12-07-2024 Miscellaneous Notes I spoke with patient. Prescription sent. Summary: pt question Pt mother called in, pt is having ongoing pain after excision on 12/03. Mother states site is slightly pink, no drainage. Some swelling. No fevers. They are requesting something else for pain. Pt used all of ordered percocet but said she did not like how it made her feel. Please advise. Gerardo Farrar RN documented in this encounter [facility] 12-07-2024 Telephone encounter Note Summary: pt question Pt mother called in, pt is having ongoing pain after excision on 12/03. Mother states site is slightly pink, no drainage. Some swelling. No fevers. They are requesting something else for pain. Pt used all of ordered percocet but said she did not like how it made her feel. Please advise. Gerardo Eloina, RN [facility] 12-03-2024 Note HNO ID: [id number] Author: CLINTON MARTINEZ APRN.LOGGING RAFTER LABORER Service: Anesthesiology Author Type: Nurse Rn Child Type: Anesthesia Procedure Notes Filed: 12/03/2024 13:15 Note Text: ANESTHESIOLOGY PROCEDURE NOTE Airway General Information Procedure Start Time/Medication Administration: 12/03/2024 1:03 PM Procedure End Time: 12/03/2024 1:03 PM Patient location during procedure: OR Timeout Performed Pre-procedure: timeout performed Consent Obtained: Yes Patient identity confirmed: arm band and patient Staffing LOGGING RAFTER LABORER: Clinton Martinez APRN.LOGGING RAFTER LABORER Performed by: BECKY Indications and Patient Condition Indications for airway management: anesthesia Preoxygenated: yes anesthesia circuit Patient position: sniffing Method: asleep Final Airway Details Final airway type: supraglottic airway Number of attempts at approach: 1 Final Supraglottic Airway: i-gel Size 4 Seal Adequate: yes SIGNATURE: Clinton Martinez APRN.LOGGING RAFTER LABORER PATIENT NAME: Griselda Concepcion DATE: December 03, 2024 TIME: 1:14 PM CSN: [id number] [facility] 11-28-2024 Telephone encounter Note Patient was notified regarding her upcoming surgery on 12/03/24 at 1:30 pm, patient to arrive at 11:15 am, presurgical testing day of surgery at 11:30 am, and post op appointment on 12/11/24 at 10:15 am. Jordyn Linn MA [facility] 11-28-2024 Miscellaneous Notes Patient was notified regarding her upcoming surgery on 12/03/24 at 1:30 pm, patient to arrive at 11:15 am, presurgical testing day of surgery at 11:30 am, and post op appointment on 12/11/24 at 10:15 am. Jordyn Linn MA documented in this encounter [facility] 11-27-2024 Note HNO ID: [id number] Author: BETSY JALLOH MD Service: ? Author Type: Physician Type: Progress Notes Filed: 12/26/2024 08:48 Note Text: Betsy Jalloh MD [facility] [address] [place] [address] SUBJECTIVE Chief Complaint: Patient presents with: Follow Up Tests Results HPI Griselda Concepcion is a 44 year old female here today for follow up of chronic left breast abscess. This is chronic and ongoing since 2021. Had IANDD at outside facility in August 2024. Cultures grew staph hominis and schaalia turicensis (formerly actinomyces). She was prescribed 2 month course of amoxicillin and doxcycline but did not tolerate. Today, left US showed irregular shaped fluid collection with significant peripheral vascularity and clear skin tract measures 1.5 x 0.6 x 0.9 cm BIRADS 2. AGE AT [place] 12 AGE AT FIRST 32 FAMILY HISTORY OF BREAST CANCER Yes (IF YES) NUMBER OF FIRST DEGREE RELATIVES WITH BREAST CANCER no PREVIOUS BREAST BIOPSIES Yes (2) (IF YES) PREVIOUS BREAST BIOPSY WITH ATYPICAL HYPERPLASIA No RACE JERARDO MODEL RISK 7 YEAR 2.7 JERARDO MODEL RISK LIFETIME 22.6 Review of Systems Constitutional: Negative for fever, malaise/fatigue and weight loss. Breast: See HPI PAST MEDICAL HISTORY Diagnosis Date Abnormal glandular Papanicolaou smear of cervix 02/18/2009 Abn. Pap smear (cervix), f/u with women's health Asthma (HCC) Brain lesion Dr. 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 : 11/27/2022 Missed (HCC) Reflex sympathetic dystrophy of other specified site left arm Seasonal allergies Thyroid disease PAST SURGICAL HISTORY Procedure Laterality Date BREAST SURGERY HX Left 12/03/2024 BX OF BREAST; INCISIONAL Left 05/2024 BX OF BREAST; INCISIONAL Left 2021 EXCISION GANGLION WRIST DORSAL/VOLAR PRIMARY IANDD HEMATOMA SEROMA/FLUID COLLECTION 12/30/2021 left breast INCISION AND DRAINAGE PROCEDURE (W NOTE) Left 03/11/2022 breast PAST SURGICAL HISTORY OF LEFT ARM, CYST Removed PAST SURGICAL HISTORY OF LEEP PAST SURGICAL HISTORY OF 04/2012, 2016 left foot surgery TONSILLECTOMY PRIMARY/SECONDARY Tonsillectomy Social History Tobacco Use Smoking status: Every Day Current packs/day: 0.50 Average packs/day: 0.5 packs/day for 18.0 years (9.0 ttl pk-yrs) Types: Cigarettes Smokeless tobacco: Never Vaping Use Vaping status: Never Used Substance Use Topics Alcohol use: No Drug use: No FAMILY HISTORY Problem Relation Age of Onset Cancer Mother UTERINE Hypertension Mother Lipids Mother Lipids Father other (clot in heart) Father No Known Problems Sister No Known Problems Sister No Known Problems Brother Heart Maternal Grandmother ANGINA Hypertension Maternal Grandmother Diabetes Maternal Grandmother Dementia Maternal Grandmother No Known Problems Maternal Grandfather Hypertension Paternal Grandmother Seizures Daughter Aneurysm Maternal Aunt 2 aunts other (arteriovenous malformation) Maternal Aunt Breast Cancer Paternal Aunt Ovarian cancer No Family History The ROS, medical, surgical, family, and social history were reviewed by Betsy Jalloh MD ALLERGIES Allergen Reactions Erythromycin Base GI Upset Ketorolac Trometham* Rash Naproxen Rash Tramadol GI Upset Current Outpatient Medications Medication Sig albuterol HFA (VENTOLIN HFA) 90 mcg/actuation inhaler Inhale 2 Puffs as instructed every 4 hours as needed for wheezing/shortness of breath. sertraline (ZOLOFT) 50 mg tablet Take 1 tablet by mouth once daily. atorvastatin (LIPITOR) 80 mg tablet Take 1 tablet by mouth daily at bedtime. For cholesterol. cetirizine (ZYRTEC) 10 mg tablet Take 1 tablet by mouth once daily. fluticasone (FLONASE) 50 mcg/actuation nasal spray Use 2 Sprays in each nostril once daily. Rinse mouth after use. folic acid 1 mg tablet Take by mouth. takes 4 tabs once a day pyridoxine HCl, vitamin B6, (VITAMIN B-6 ORAL) Take 1 tablet by mouth once daily. SUMAtriptan (IMITREX) 50 mg tablet Take 50 mg by mouth as needed. levETIRAcetam (KEPPRA) 750 mg tablet Take 1.5 tablets by mouth twice daily. doxycycline hyclate (VIBRAMYCIN) 100 mg capsule Take 1 capsule by mouth two times a day. famotidine (PEPCID) 20 mg tablet Take 1 tablet by mouth two times a day. No current facility-administered medications for this visit. OBJECTIVE BP 105/68 Pulse 63 LMP 11/27/2024 No weight on file for t (more content not included)... [facility] 11-27-2024 History of Presen t illness Narrative Images from the original note were not included. Betsy Jalloh MD [facility] [address] [phone] SUBJECTIVE Chief Complaint: Patient presents with: Follow Up Tests Results HPI Griselda Concepcion is a 44 year old female here today for follow up of chronic left breast abscess. This is chronic and ongoing since 2021. Had I&D at outside facility in August 2024. Cultures grew staph hominis and schaalia turicensis (formerly actinomyces). She was prescribed 2 month course of amoxicillin and doxcycline but did not tolerate. Today, left US showed irregular shaped fluid collection with significant peripheral vascularity and clear skin tract measures 1.5 x 0.6 x 0.9 cm BIRADS 2. AGE AT [place] 12 AGE AT FIRST 32 FAMILY HISTORY OF BREAST CANCER Yes (IF YES) NUMBER OF FIRST DEGREE RELATIVES WITH BREAST CANCER no PREVIOUS BREAST BIOPSIES Yes (2) (IF YES) PREVIOUS BREAST BIOPSY WITH ATYPICAL HYPERPLASIA No RACE JERARDO MODEL RISK 7 YEAR 2.7 JERARDO MODEL RISK LIFETIME 22.6 Review of Systems Constitutional: Negative for fever, malaise/fatigue and weight loss. Breast: See HPI PAST MEDICAL HISTORY Diagnosis Date Abnormal glandular Papanicolaou smear of cervix 02/18/2009 Abn. Pap smear (cervix), f/u with women's health Asthma (HCC) Brain lesion Dr. 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 : 11/27/2022 Missed (HCC) Reflex sympathetic dystrophy of other specified site left arm Seasonal allergies Thyroid disease PAST SURGICAL HISTORY Procedure Laterality Date BREAST SURGERY HX Left 12/03/2024 BX OF BREAST; INCISIONAL Left 05/2024 BX OF BREAST; INCISIONAL Left 2021 EXCISION GANGLION WRIST DORSAL/VOLAR PRIMARY I&D HEMATOMA SEROMA/FLUID COLLECTION 12/30/2021 left breast INCISION AND DRAINAGE PROCEDURE (W NOTE) Left 03/11/2022 breast PAST SURGICAL HISTORY OF LEFT ARM, CYST Removed PAST SURGICAL HISTORY OF LEEP PAST SURGICAL HISTORY OF 04/2012, 2016 left foot surgery TONSILLECTOMY PRIMARY/SECONDARY <AGE 14 Tonsillectomy Social History Tobacco Use Smoking status: Every Day Current packs/day: 0.50 Average packs/day: 0.5 packs/day for 18.0 years (9.0 ttl pk-yrs) Types: Cigarettes Smokeless tobacco: Never Vaping Use Vaping status: Never Used Substance Use Topics Alcohol use: No Drug use: No FAMILY HISTORY Problem Relation Age of Onset Cancer Mother UTERINE Hypertension Mother Lipids Mother Lipids Father other (clot in heart) Father No Known Problems Sister No Known Problems Sister No Known Problems Brother Heart Maternal Grandmother ANGINA Hypertension Maternal Grandmother Diabetes Maternal Grandmother Dementia Maternal Grandmother No Known Problems Maternal Grandfather Hypertension Paternal Grandmother Seizures Daughter Aneurysm Maternal Aunt 2 aunts other (arteriovenous malformation) Maternal Aunt Breast Cancer Paternal Aunt Ovarian cancer No Family History The ROS, medical, surgical, family, and social history were reviewed by Betsy Jalloh MD ALLERGIES Allergen Reactions Erythromycin Base GI Upset Ketorolac Trometham* Rash Naproxen Rash Tramadol GI Upset Current Outpatient Medications Medication Sig albuterol HFA (VENTOLIN HFA) 90 mcg/actuation inhaler Inhale 2 Puffs as instructed every 4 hours as needed for wheezing/shortness of breath. sertraline (ZOLOFT) 50 mg tablet Take 1 tablet by mouth once daily. atorvastatin (LIPITOR) 80 mg tablet Take 1 tablet by mouth daily at bedtime. For cholesterol. cetirizine (ZYRTEC) 10 mg tablet Take 1 tablet by mouth once daily. fluticasone (FLONASE) 50 mcg/actuation nasal spray Use 2 Sprays in each nostril once daily. Rinse mouth after use. folic acid 1 mg tablet Take by mouth. takes 4 tabs once a day pyridoxine HCl, vitamin B6, (VITAMIN B-6 ORAL) Take 1 tablet by mouth once daily. SUMAtriptan (IMITREX) 50 mg tablet Take 50 mg by mouth as needed. levETIRAcetam (KEPPRA) 750 mg tablet Take 1.5 tablets by mouth twice daily. doxycycline hyclate (VIBRAMYCIN) 100 mg capsule Take 1 capsule by mouth two times a day. famotidine (PEPCID) 20 mg tablet Take 1 tablet by mouth two times a day. No current facility-administered medications for this visit. OBJECTIVE BP 105/68 Pulse 63 LMP 11/27/2024 No weight on file for this encounter. Participation of a fellow, resident, medical student, or advanced practice provider student in performing the sensitive examination was discussed with the patient or authorized u.s. representative. The patient or authorized u.s. representative has agreed to proceed with the sensitive examination. Physical Exam Neck: Thyroid: No thyromegaly. Lymphadenopathy: Head: Right side of head: No submental, submandibular or tonsillar adenopathy. Left side of head: No submental, submandibular or tonsillar adenopathy. Cervical: No cervical adenopathy. Upper Body: Right upper body: No supraclavicular adenopathy. Left upper body: No supraclavicular adenopathy. Neurological: Mental Status: She is alert and oriented to person, place, and time. Plan ASSESSMENT/PLAN Mass of upper inner quadrant of left breast Ms Concepcion is a 44 year old female with history of left breast infection. This is chronic and ongoing since 2021. Had I&D at outside facility in August 2024. Cultures grew staph hominis and schaalia turicensis (formerly actinomyces). She was prescribed 2 month course of amoxicillin and doxcycline but did not tolerate. Today, US showed 1.5 cm fluid collection upper inner breast. I stressed with importance of smoking cessation for the resolution of chronic breast infections. Breast abscess Ms Concepcion is a 44 year old female with history of left breast infection. This is chronic and ongoing since 2021. Had I&D at outside facility in August 2024. Cultures grew staph hominis and schaalia turicensis (formerly actinomyces). She was prescribed 2 month course of amoxicillin and doxcycline but did not tolerate. She continues to have intermittent drainage. Today, no erythema or drainage. Small opening upper inner left breast. Likely fistula. Left US showed fluid collection with sinus tract. Discussed excision. I stressed with importance of smoking cessation for the resolution of chronic breast infections. Additionally tissue will be sent for cultures and she may need ID consult post op. H&P with pre testing. Surgery. Post op. Follow up: Return for H&P pre testing, surgery post op. Betsy Jalolh MD 11/27/2024 1:52 PM Patient presents for follow up after imaging.Patient stated soreness in the left breast.Patient stated yellowish drainage over the weekend from left breast. Jennifer Rahman LPN documented in this encounter [facility] 11-27-2024 Note HNO ID: [id number] Author: JENNIFER RAHMAN LPN Service: ? Author Type: LICENSED NURSE Type: Progress Notes Filed: 12/26/2024 08:48 Note Text: Patient presents for follow up after imaging.Patient stated soreness in the left breast.Patient stated yellowish drainage over the weekend from left breast. Jennifer Rahman LPN [facility] 11-27-2024 History of Presen t illness Narrative Radiology Service Progress Note PATIENT NAME: Griselda Concepcion DATE OF SERVICE: November 27, 2024 TIME: 1:26 PM PATIENT IDENTITY VERIFICATION COMPLETED USING TWO (2) IDENTIFIERS: Name and Date of confirmed by patient verbally. FALL SCREENING: Has the patient had 2 falls in the last year or 1 fall with injury or currently using an Ambulatory Assistive Device (Walker, Cane, Wheelchair, Crutches, etc.)? No PATIENT GENDER DATA: Assigned female at . status: : No status: NO. PATIENT RELEVANT IMPLANT DATA REVIEWED: Not Applicable PATIENT PRESENTS WITH AN IMPLANTABLE OR ATTACHED CARD SETTER: No RADIOLOGY DEPARTMENT: Ultrasound PERIPHERAL IV DATA: Not applicable SIGNED BY: RT Lina(Jade) November 27, 2024 1:26 PM documented in this encounter [facility] 11-27-2024 Note HNO ID: [id number] Author: LETICIA LEE RT(R) Service: ? Author Type: Technologist Type: Progress Notes Filed: 11/27/2024 13:27 Note Text: Radiology Service Progress Note PATIENT NAME: Griselda Concepcion DATE OF SERVICE: November 27, 2024 TIME: 1:26 PM PATIENT IDENTITY VERIFICATION COMPLETED USING TWO (2) IDENTIFIERS: Name and Date of confirmed by patient verbally. FALL SCREENING: Has the patient had 2 falls in the last year or 1 fall with injury or currently using an Ambulatory Assistive Device (Walker, Cane, Wheelchair, Crutches, etc.)? No PATIENT GENDER DATA: Assigned female at . status: : No status: NO. PATIENT RELEVANT IMPLANT DATA REVIEWED: Not Applicable PATIENT PRESENTS WITH AN IMPLANTABLE OR ATTACHED CARD SETTER: No RADIOLOGY DEPARTMENT: Ultrasound PERIPHERAL IV DATA: Not applicable SIGNED BY: RT Lina(Jade) November 27, 2024 1:26 PM [facility] 11-21-2024 Telephone encounter Note Patient notified of results and provider's instructions. Patient verbalizes understanding. Maribel Fuentes LPN [facility] 11-21-2024 Miscellaneous Notes Patient notified of results and provider's instructions. Patient verbalizes understanding. Maribel Fuentes LPN Negative for covid/flu/rsv. Continue as discussed with Be. documented in this encounter [facility] 11-21-2024 Telephone encounter Note Negative for covid/flu/rsv. Continue as discussed with Be. [facility] Work Phone: 11-20-2024 Note SARS-COV-2 (AGENT OF COVID-19) RNA: Not detected INFLUENZA A RNA: Not detected INFLUENZA B RNA: Not detected RESPIRATORY SYNCYTIAL VIRUS (RSV) RNA: Not detected [facility] Comment on above: Performed By: #### [id number] ####[facility] LABCLIA [id number] [address] [place] OF [facility] 11-20-2024 Note HNO ID: [id number] Author: EDGARD GÓMEZ APRN.BRAKE ADJUSTER Service: ? Author Type: Nurse Practitioner Type: Progress Notes Filed: 11/20/2024 15:54 Note Text: Chief Complaint Patient presents with: Cough Fatigue Head Congestion HPI Griselda M Jamey is a 44 year old female who presents here today for Above Complaints.. Patient presents for head congestion, fatigue, and cough x3 days. Reports she called off work yesterday and today. 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 Past medical history, appointments, medications, allergies reviewed. Previous Medical History PAST MEDICAL HISTORY Diagnosis Date Abnormal glandular Papanicolaou smear of cervix 02/18/2009 Abn. Pap smear (cervix), f/u with women's health Asthma Brain lesion Dr. 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 : 11/27/2022 Missed Reflex sympathetic dystrophy of other specified site left arm Seasonal allergies Thyroid disease Previous Surgical History PAST SURGICAL HISTORY Procedure Laterality Date BREAST SURGERY HX Left BX OF BREAST; INCISIONAL Left 05/2024 BX OF BREAST; INCISIONAL Left 2021 EXCISION GANGLION WRIST DORSAL/VOLAR PRIMARY IANDD HEMATOMA SEROMA/FLUID COLLECTION 12/30/2021 left breast INCISION AND DRAINAGE PROCEDURE (W NOTE) Left 03/11/2022 breast PAST SURGICAL HISTORY OF LEFT ARM, CYST Removed PAST SURGICAL HISTORY OF LEEP PAST SURGICAL HISTORY OF 04/2012, 2015 left foot surgery TONSILLECTOMY PRIMARY/SECONDARY Tonsillectomy Family History FAMILY HISTORY Problem Relation Age of Onset Cancer Mother UTERINE Hypertension Mother Lipids Mother Lipids Father other (clot in heart) Father No Known Problems Sister No Known Problems Sister No Known Problems Brother Heart Maternal Grandmother ANGINA Hypertension Maternal Grandmother Diabetes Maternal Grandmother Dementia Maternal Grandmother No Known Problems Maternal Grandfather Hypertension Paternal Grandmother Seizures Daughter Aneurysm Maternal Aunt 2 aunts other (arteriovenous malformation) Maternal Aunt Breast Cancer Paternal Aunt Ovarian cancer No Family History Patient Allergies ALLERGIES Allergen Reactions Erythromycin Base GI Upset Ketorolac Trometham* Rash Naproxen Rash Tramadol GI Upset Current Medications Current Outpatient Medications on File Prior to Visit Medication Sig albuterol HFA (VENTOLIN HFA) 90 mcg/actuation inhaler Inhale 2 Puffs as instructed every 4 hours as needed for wheezing/shortness of breath. sertraline (ZOLOFT) 50 mg tablet Take 1 tablet by mouth once daily. atorvastatin (LIPITOR) 80 mg tablet Take 1 tablet by mouth daily at bedtime. For cholesterol. cetirizine (ZYRTEC) 10 mg tablet Take 1 tablet by mouth once daily. fluticasone (FLONASE) 50 mcg/actuation nasal spray Use 2 Sprays in each nostril once daily. Rinse mouth after use. folic acid 1 mg tablet Take by mouth. takes 4 tabs once a day pyridoxine HCl, vitamin B6, (VITAMIN B-6 ORAL) Take by mouth. SUMAtriptan (IMITREX) 50 mg tablet Take 50 mg by mouth as needed. levETIRAcetam (KEPPRA) 750 mg tablet Take 1.5 tablets by mouth twice daily. No current facility-administered medications on file prior to visit. Social History Social History Tobacco Use Smoking status: Every Day Current packs/day: 0.50 Average packs/day: 0.5 packs/day for 18.0 years (9.0 ttl pk-yrs) Types: Cigarettes Smokeless tobacco: Never Tobacco comments: 3 cigarettes a day Vaping Use Vaping status: Never Used Substance Use Topics Alcohol use: No Drug use: No Review of Symptoms REVIEW OF SYSTEMS SEE HPI EXAM: BP 113/67 Pulse 78 Wt 70 kg (154 lb 5.2 oz) LMP 01/04/2024 (Approximate) BMI 23.01 kg/m? General Appearance: Well appearing, alert, in no acute distress, well-hydrated, well nourished. Nose/Sinuses: Positive findings: mucosa erythematous and swollen, purulent rhinorrhea. Oropharynx: Lips, mucosa, and tongue normal, teeth and gums normal, oropharynx normal. Lungs: Lungs clear to auscultation. No wheezing, rhonchi, rales.. Heart: RRR without murmur, gallop, or rubs. No ectopy. Health Maintenance List Spirometry Never done Anxiety Screening Never done Hepatitis B Vaccine(1 of 3 - 19+ 3-dose series) Never done Influenza Vaccine(1) due on 05/06/2024 Covid-19 Vaccine(2023- season) due on 05/06/2024 Annual PCP Team Chronic Disease Visit due on 05/24/2024 (more content not included)... [facility] 11-20-2024 History of Presen t illness Narrative Chief Complaint Patient presents with: Cough Fatigue Head Congestion HPI Griselda Concepcion is a 44 year old female who presents here today for Above Complaints.. Patient presents for head congestion, fatigue, and cough x3 days. Reports she called off work yesterday and today. 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 Past medical history, appointments, medications, allergies reviewed. Previous Medical History PAST MEDICAL HISTORY Diagnosis Date Abnormal glandular Papanicolaou smear of cervix 02/18/2009 Abn. Pap smear (cervix), f/u with women's health Asthma Brain lesion Dr. 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 : 11/27/2022 Missed Reflex sympathetic dystrophy of other specified site left arm Seasonal allergies Thyroid disease Previous Surgical History PAST SURGICAL HISTORY Procedure Laterality Date BREAST SURGERY HX Left BX OF BREAST; INCISIONAL Left 05/2024 BX OF BREAST; INCISIONAL Left 2021 EXCISION GANGLION WRIST DORSAL/VOLAR PRIMARY I&D HEMATOMA SEROMA/FLUID COLLECTION 12/30/2021 left breast INCISION AND DRAINAGE PROCEDURE (W NOTE) Left 03/11/2022 breast PAST SURGICAL HISTORY OF LEFT ARM, CYST Removed PAST SURGICAL HISTORY OF LEEP PAST SURGICAL HISTORY OF 04/2012, 2015 left foot surgery TONSILLECTOMY PRIMARY/SECONDARY <AGE 14 Tonsillectomy Family History FAMILY HISTORY Problem Relation Age of Onset Cancer Mother UTERINE Hypertension Mother Lipids Mother Lipids Father other (clot in heart) Father No Known Problems Sister No Known Problems Sister No Known Problems Brother Heart Maternal Grandmother ANGINA Hypertension Maternal Grandmother Diabetes Maternal Grandmother Dementia Maternal Grandmother No Known Problems Maternal Grandfather Hypertension Paternal Grandmother Seizures Daughter Aneurysm Maternal Aunt 2 aunts other (arteriovenous malformation) Maternal Aunt Breast Cancer Paternal Aunt Ovarian cancer No Family History Patient Allergies ALLERGIES Allergen Reactions Erythromycin Base GI Upset Ketorolac Trometham* Rash Naproxen Rash Tramadol GI Upset Current Medications Current Outpatient Medications on File Prior to Visit Medication Sig albuterol HFA (VENTOLIN HFA) 90 mcg/actuation inhaler Inhale 2 Puffs as instructed every 4 hours as needed for wheezing/shortness of breath. sertraline (ZOLOFT) 50 mg tablet Take 1 tablet by mouth once daily. atorvastatin (LIPITOR) 80 mg tablet Take 1 tablet by mouth daily at bedtime. For cholesterol. cetirizine (ZYRTEC) 10 mg tablet Take 1 tablet by mouth once daily. fluticasone (FLONASE) 50 mcg/actuation nasal spray Use 2 Sprays in each nostril once daily. Rinse mouth after use. folic acid 1 mg tablet Take by mouth. takes 4 tabs once a day pyridoxine HCl, vitamin B6, (VITAMIN B-6 ORAL) Take by mouth. SUMAtriptan (IMITREX) 50 mg tablet Take 50 mg by mouth as needed. levETIRAcetam (KEPPRA) 750 mg tablet Take 1.5 tablets by mouth twice daily. No current facility-administered medications on file prior to visit. Social History Social History Tobacco Use Smoking status: Every Day Current packs/day: 0.50 Average packs/day: 0.5 packs/day for 18.0 years (9.0 ttl pk-yrs) Types: Cigarettes Smokeless tobacco: Never Tobacco comments: 3 cigarettes a day Vaping Use Vaping status: Never Used Substance Use Topics Alcohol use: No Drug use: No Review of Symptoms REVIEW OF SYSTEMS SEE HPI EXAM: BP 113/67 Pulse 78 Wt 70 kg (154 lb 5.2 oz) LMP 01/04/2024 (Approximate) BMI 23.01 kg/m General Appearance: Well appearing, alert, in no acute distress, well-hydrated, well nourished. Nose/Sinuses: Positive findings: mucosa erythematous and swollen, purulent rhinorrhea. Oropharynx: Lips, mucosa, and tongue normal, teeth and gums normal, oropharynx normal. Lungs: Lungs clear to auscultation. No wheezing, rhonchi, rales.. Heart: RRR without murmur, gallop, or rubs. No ectopy. Health Maintenance List Spirometry Never done Anxiety Screening Never done Hepatitis B Vaccine(1 of 3 - 19+ 3-dose series) Never done Influenza Vaccine(1) due on 05/06/2024 Covid-19 Vaccine( - 2023- season) due on 05/06/2024 Annual PCP Team Chronic Disease Visit due on 05/24/2024 Cervical Cancer Screening due on 10/26/2024 Mammogram Screening due on 07/03/2025 DTaP,Tdap,Td Vaccine(3 - Td or Tdap) due on 06/16/2030 Pneumococcal Vaccine(3 of 3 - PCV20 or PCV21) due on 2032 Hepatitis C Screening Completed HIV Screening Completed ASSESSMENT/PLAN: 1. Acute cough - ICD9: 786.2, ICD10: R05.1 (primary diagnosis) - COVID & INFLUENZA A/B & RSV PCR, ROUTINE 2. Head congestion - ICD9: 478.19, ICD10: R09.81 - COVID & INFLUENZA A/B & RSV PCR, ROUTINE Edgard Gómez APRN.BRAKE ADJUSTER documented in this encounter [facility] 11-06-2024 Note HNO ID: [id number] Author: BETSY JALLOH MD Service: ? Author Type: Physician Type: Progress Notes Filed: 11/19/2024 08:16 Note Text: [place] [address] SUBJECTIVE Chief Complaint: Patient presents with: New Patient: Left breast cyst HPI Griselda Concepcion is a 44 year old female here today for evaluation of left breast infection. History of left breast IANDD x2 in December 2021. More recently,she presented in July 2024 for re-evaluation. Site of left breast draining off and on since 2021. Cultures from IANDD 08/06/24 returned staph hominis and schaalia turicensis (formerly actinomyces). She was prescribed 2 month course of amoxicillin and doxcycline. She was not able to tolerate antibiotics and presents today for re-evaluation. Last imaging was mammogram 07/03/24 that showed retraction of left nipple areolar complex with retroareolar thickening. Us showed 0.4 cm cyst at 10:00 1 cm from the nipple, BIRADS 2. Breast density BIRADS B. There are no exam notes on file for this visit. AGE AT [place] 12 AGE AT FIRST 32 FAMILY HISTORY OF BREAST CANCER Yes (IF YES) NUMBER OF FIRST DEGREE RELATIVES WITH BREAST CANCER no PREVIOUS BREAST BIOPSIES Yes (IF YES) PREVIOUS BREAST BIOPSY WITH ATYPICAL HYPERPLASIA No RACE JERARDO MODEL RISK 5 YEAR 2.7 JERARDO MODEL RISK LIFETIME 22.6 GENETIC TESTING no RISK REDUCTION OFFERED no HISTORY OF USING CONTROL PILLS Yes HISTORY OF USING HORMONE REPLACEMENT THERAPY No Review of Systems Constitutional: Negative for fever, malaise/fatigue and weight loss. Breast: See HPI PAST MEDICAL HISTORY Diagnosis Date Abnormal glandular Papanicolaou smear of cervix 02/18/2009 Abn. Pap smear (cervix), f/u with women's health Asthma Brain lesion Dr. 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 : 11/27/2022 Missed Reflex sympathetic dystrophy of other specified site left arm Seasonal allergies Thyroid disease PAST SURGICAL HISTORY Procedure Laterality Date BREAST SURGERY HX Left BX OF BREAST; INCISIONAL Left 05/2024 BX OF BREAST; INCISIONAL Left 2021 EXCISION GANGLION WRIST DORSAL/VOLAR PRIMARY IANDD HEMATOMA SEROMA/FLUID COLLECTION 12/30/2021 left breast INCISION AND DRAINAGE PROCEDURE (W NOTE) Left 03/11/2022 breast PAST SURGICAL HISTORY OF LEFT ARM, CYST Removed PAST SURGICAL HISTORY OF LEEP PAST SURGICAL HISTORY OF 04/2012, 2015 left foot surgery TONSILLECTOMY PRIMARY/SECONDARY Tonsillectomy Social History Tobacco Use Smoking status: Every Day Current packs/day: 0.50 Average packs/day: 0.5 packs/day for 18.0 years (9.0 ttl pk-yrs) Types: Cigarettes Smokeless tobacco: Never Tobacco comments: 3 cigarettes a day Vaping Use Vaping status: Never Used Substance Use Topics Alcohol use: No Drug use: No FAMILY HISTORY Problem Relation Age of Onset Cancer Mother UTERINE Hypertension Mother Lipids Mother Lipids Father other (clot in heart) Father No Known Problems Sister No Known Problems Sister No Known Problems Brother Heart Maternal Grandmother ANGINA Hypertension Maternal Grandmother Diabetes Maternal Grandmother Dementia Maternal Grandmother No Known Problems Maternal Grandfather Hypertension Paternal Grandmother Seizures Daughter Aneurysm Maternal Aunt 2 aunts other (arteriovenous malformation) Maternal Aunt Breast Cancer Paternal Aunt Ovarian cancer No Family History The ROS, medical, surgical, family, and social history were reviewed by Betsy Jalloh MD ALLERGIES Allergen Reactions Erythromycin Base GI Upset Ketorolac Trometham* Rash Naproxen Rash Tramadol GI Upset Current Outpatient Medications Medication Sig sertraline (ZOLOFT) 50 mg tablet Take 1 tablet by mouth once daily. atorvastatin (LIPITOR) 80 mg tablet Take 1 tablet by mouth daily at bedtime. For cholesterol. cetirizine (ZYRTEC) 10 mg tablet Take 1 tablet by mouth once daily. fluticasone (FLONASE) 50 mcg/actuation nasal spray Use 2 Sprays in each nostril once daily. Rinse mouth after use. folic acid 1 mg tablet Take by mouth. takes 4 tabs once a day pyridoxine HCl, vitamin B6, (VITAMIN B-6 ORAL) Take by mouth. SUMAtriptan (IMITREX) 50 mg tablet Take 50 mg by mouth as needed. levETIRAcetam (KEPPRA) 750 mg tablet Take 1.5 tablets by mouth twice daily. albuterol HFA (VENTOLIN HFA) 90 mcg/actuation in (more content not included)... [facility] 11-06-2024 History of Presen t illness Narrative Images from the original note were not included. Betsy aJlloh MD [facility] [address] [phone] SUBJECTIVE Chief Complaint: Patient presents with: New Patient: Left breast cyst HPI Griselda Concepcion is a 44 year old female here today for evaluation of left breast infection. History of left breast I&D x2 in December 2021. More recently,she presented in July 2024 for re-evaluation. Site of left breast draining off and on since 2021. Cultures from I&D 08/06/24 returned staph hominis and schaalia turicensis (formerly actinomyces). She was prescribed 2 month course of amoxicillin and doxcycline. She was not able to tolerate antibiotics and presents today for re-evaluation. Last imaging was mammogram 07/03/24 that showed retraction of left nipple areolar complex with retroareolar thickening. Us showed 0.4 cm cyst at 10:00 1 cm from the nipple, BIRADS 2. Breast density BIRADS B. There are no exam notes on file for this visit. AGE AT [place] 12 AGE AT FIRST 32 FAMILY HISTORY OF BREAST CANCER Yes (IF YES) NUMBER OF FIRST DEGREE RELATIVES WITH BREAST CANCER no PREVIOUS BREAST BIOPSIES Yes (IF YES) PREVIOUS BREAST BIOPSY WITH ATYPICAL HYPERPLASIA No RACE JERARDO MODEL RISK 5 YEAR 2.7 JERARDO MODEL RISK LIFETIME 22.6 GENETIC TESTING no RISK REDUCTION OFFERED no HISTORY OF USING CONTROL PILLS Yes HISTORY OF USING HORMONE REPLACEMENT THERAPY No Review of Systems Constitutional: Negative for fever, malaise/fatigue and weight loss. Breast: See HPI PAST MEDICAL HISTORY Diagnosis Date Abnormal glandular Papanicolaou smear of cervix 02/18/2009 Abn. Pap smear (cervix), f/u with women's health Asthma Brain lesion Dr. 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 : 11/27/2022 Missed Reflex sympathetic dystrophy of other specified site left arm Seasonal allergies Thyroid disease PAST SURGICAL HISTORY Procedure Laterality Date BREAST SURGERY HX Left BX OF BREAST; INCISIONAL Left 05/2024 BX OF BREAST; INCISIONAL Left 2021 EXCISION GANGLION WRIST DORSAL/VOLAR PRIMARY I&D HEMATOMA SEROMA/FLUID COLLECTION 12/30/2021 left breast INCISION AND DRAINAGE PROCEDURE (W NOTE) Left 03/11/2022 breast PAST SURGICAL HISTORY OF LEFT ARM, CYST Removed PAST SURGICAL HISTORY OF LEEP PAST SURGICAL HISTORY OF 04/2012, 2015 left foot surgery TONSILLECTOMY PRIMARY/SECONDARY <AGE 14 Tonsillectomy Social History Tobacco Use Smoking status: Every Day Current packs/day: 0.50 Average packs/day: 0.5 packs/day for 18.0 years (9.0 ttl pk-yrs) Types: Cigarettes Smokeless tobacco: Never Tobacco comments: 3 cigarettes a day Vaping Use Vaping status: Never Used Substance Use Topics Alcohol use: No Drug use: No FAMILY HISTORY Problem Relation Age of Onset Cancer Mother UTERINE Hypertension Mother Lipids Mother Lipids Father other (clot in heart) Father No Known Problems Sister No Known Problems Sister No Known Problems Brother Heart Maternal Grandmother ANGINA Hypertension Maternal Grandmother Diabetes Maternal Grandmother Dementia Maternal Grandmother No Known Problems Maternal Grandfather Hypertension Paternal Grandmother Seizures Daughter Aneurysm Maternal Aunt 2 aunts other (arteriovenous malformation) Maternal Aunt Breast Cancer Paternal Aunt Ovarian cancer No Family History The ROS, medical, surgical, family, and social history were reviewed by Betsy Jalloh MD ALLERGIES Allergen Reactions Erythromycin Base GI Upset Ketorolac Trometham* Rash Naproxen Rash Tramadol GI Upset Current Outpatient Medications Medication Sig sertraline (ZOLOFT) 50 mg tablet Take 1 tablet by mouth once daily. atorvastatin (LIPITOR) 80 mg tablet Take 1 tablet by mouth daily at bedtime. For cholesterol. cetirizine (ZYRTEC) 10 mg tablet Take 1 tablet by mouth once daily. fluticasone (FLONASE) 50 mcg/actuation nasal spray Use 2 Sprays in each nostril once daily. Rinse mouth after use. folic acid 1 mg tablet Take by mouth. takes 4 tabs once a day pyridoxine HCl, vitamin B6, (VITAMIN B-6 ORAL) Take by mouth. SUMAtriptan (IMITREX) 50 mg tablet Take 50 mg by mouth as needed. levETIRAcetam (KEPPRA) 750 mg tablet Take 1.5 tablets by mouth twice daily. albuterol HFA (VENTOLIN HFA) 90 mcg/actuation inhaler Inhale 2 Puffs as instructed every 4 hours as needed for wheezing/shortness of breath. No current facility-administered medications for this visit. OBJECTIVE BP 106/57 Pulse 66 LMP 01/04/2024 (Approximate) No weight on file for this encounter. Participation of a fellow, resident, medical student, or advanced practice provider student in performing the sensitive examination was discussed with the patient or authorized u.s. representative. The patient or authorized u.s. representative has agreed to proceed with the sensitive examination. (Sensitive examination includes inspection and/or palpation of the breasts, pelvis, prostate and anorectal regions) Physical Exam Neck: Thyroid: No thyromegaly. Chest: Breasts: Breasts are symmetrical. Right: No inverted nipple, mass, nipple discharge, skin change or tenderness. Left: No inverted nipple, mass, nipple discharge, skin change (small opening (fistula at 10:00 1 CFN; no erythema or drainage) or tenderness. Lymphadenopathy: Head: Right side of head: No submental, submandibular or tonsillar adenopathy. Left side of head: No submental, submandibular or tonsillar adenopathy. Cervical: No cervical adenopathy. Upper Body: Right upper body: No supraclavicular or axillary adenopathy. Left upper body: No supraclavicular or axillary adenopathy. Neurological: Mental Status: She is alert and oriented to person, place, and time. Plan ASSESSMENT/PLAN Mass of upper inner quadrant of left breast Ms Concepcion is a 44 year old female with history of left breast infection. This is chronic and ongoing since 2021. Had I&D at outside facility in August 2024. Cultures grew staph hominis and schaalia turicensis (formerly actinomyces). She was prescribed 2 month course of amoxicillin and doxcycline but did not tolerate. She continues to have intermittent drainage. Today, no erythema or drainage. Small opening upper inner left breast. Likely fistula. Recommend repeat US and follow up for results. I stressed with importance of smoking cessation for the resolution of chronic breast infections. Follow up: Return for US first available and follow up for results.. Betsy Jalloh MD 11/06/2024 2:58 PM Medical Decision Making: Problems: Moderate: New problem with uncertain prognosis Data: Unique source(s) for external note(s) reviewed: 1 Unique test result(s) reviewed: 2 Unique test(s) ordered: 1 Independent interpretation of test from other physician/QHCP Medical Decision Making Level: 4 - Moderate New patient being seen for history of breast cysts .Patient stated she had multiple biopsies and breast surgeries. Patient stated pain 3/10 Jennifer Rahman LPN documented in this encounter [facility] 11-06-2024 Note HNO ID: [id number] Author: JENNIFER RAHMAN LPN Service: ? Author Type: LICENSED NURSE Type: Progress Notes Filed: 11/19/2024 08:16 Note Text: New patient being seen for history of breast cysts .Patient stated she had multiple biopsies and breast surgeries. Patient stated pain 3/10 Jennifer Rahman LPN [facility] 11-04-2024 Telephone encounter Note Patient calling with request for refill of her albuterol HFA (VENTOLIN HFA) 90 mcg/actuation inhaler . Patient denies any new or worsening symptoms of which a provider is not aware: Yes. Allergies reviewed. Patient uses [id number] - [place] [address] [facility] [address] [facility] - [phone] [facility] 11-04-2024 Miscellaneous Notes Patient calling with request for refill of her albuterol HFA (VENTOLIN HFA) 90 mcg/actuation inhaler . Patient denies any new or worsening symptoms of which a provider is not aware: Yes. Allergies reviewed. Patient uses [facility] [address] [place] [address] - [address] - [phone] documented in this encounter [facility] 08-06-2024 Evaluation note Diagnosis Onset Date Resolution Left breast abscess chronic Decem 2023 8:36am Left breast abscess chronic Decem 2023 8:41am Left breast abscess chronic Janua ry 2024 2:42pm [facility] Work Phone: 1(916) 792-534210-29-2024 Telephone encounter Note* Telephone Encounter - Marysol Pimentel MA - 07/03/2024 11:05 AM EDT Notified via [employer] Marysol Pimentel MA [facility]10-29-2024 Miscellaneous Notes* Telephone Encounter - Marysol Pimentel MA - 07/03/2024 11:05 AM EDT Notified via [employer] Marysol Pimentel MA * Telephone Encounter - Demetrice Jurado - 07/03/2024 10:07 AM EDT Please expedite inhaler today. TY Patient has been identified by name and date of : Yes, Parent/Guardian phones for refill(s): Requested Prescriptions Pending Prescriptions Disp Refills albuterol HFA (VENTOLIN HFA) 90 mcg/actuation inhaler 18 g 2 Sig: Inhale 2 Puffs as instructed every 4 hours as needed for wheezing/shortness of breath. Date of last office visit in primary care: 05/24/2023 Date of next office visit in primary care: Visit date not found Please advise. Thank you. Demetrice Jurado. [facility] Telephone encounter Note * Telephone Encounter - Demetrice Jurado - 07/03/2024 10:07 AM EDT Please expedite inhaler today. TY Patient has been identified by name and date of : Yes, Parent/Guardian phones for refill(s): Requested Prescriptions Pending Prescriptions Disp Refills albuterol HFA (VENTOLIN HFA) 90 mcg/actuation inhaler 18 g 2 Sig: Inhale 2 Puffs as instructed every 4 hours as needed for wheezing/shortness of breath. Date of last office visit in primary care: 05/24/2023 Date of next office visit in primary care: Visit date not found Please advise. Thank you. Demetrice Jurado. [facility]09-16-2024 NoteHNO ID: [id number] Author: MIRIAN LEPE APRN.BRAKE ADJUSTER Service: ? Author Type: Nurse Practitioner Type: Progress Notes Filed: 05/21/2024 18:35 Note Text: CC: Patient presents with: Sinusitis: X 1 week HPI: Griselda Concepcion is a 44 year old female who presents to the office with complaint of head congestion, cough, nonproductive, and sinus symptoms for a week. Symptoms are worsening Associated symptoms includes wheezing. Denies fever, nausea, vomiting , and diarrhea. Treatments tried include nothing so far. with no relief of symptoms. Sick contacts: unknown. History of asthma, frequent episodes of bronchitis, chronic bronchitis, bronchiectasis or COPD: No Smoker: No Seasonal/environmental allergies: No The ROS is otherwise negative. The patient's pmh, medications, allergies, and past visits are reviewed. PHYSICAL EXAM: BP 118/72 Pulse 74 Temp 37 ?C (98.6 ?F) (Left Tympanic) Resp 16 Wt 75.3 kg (166 lb 0.1 oz) LMP 01/04/2024 (Approximate) SpO2 96% BMI 24.76 kg/m? General appearance: alert, cooperative, pleasant, in no acute distress Head: Normocephalic Eyes: EOM's intact, conjunctiva pink and moist, no icterus, sclera white, non-injected Ears: Right ear: External ear/canal- Normal, TM - clear with good landmarks. Left ear: External ear/canal- Normal, TM - clear with good landmarks Oropharynx:moist without lesions Heart: Negative. RRR without obvious murmur, gallop, or rubs. No ectopy. Lungs: clear to auscultation, without rales or wheeze, good air exchange PAST MEDICAL HISTORY Diagnosis Date Abnormal glandular Papanicolaou smear of cervix 02/18/2009 Abn. Pap smear (cervix), f/u with women's health Asthma Brain lesion Dr. 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 : 11/27/2022 Missed Reflex sympathetic dystrophy of other specified site left arm Seasonal allergies Thyroid disease PAST SURGICAL HISTORY Procedure Laterality Date EXCISION GANGLION WRIST DORSAL/VOLAR PRIMARY IANDD HEMATOMA SEROMA/FLUID COLLECTION 12/30/2021 left breast INCISION AND DRAINAGE PROCEDURE (W NOTE) Left 03/11/2022 breast PAST SURGICAL HISTORY OF LEFT ARM, CYST Removed PAST SURGICAL HISTORY OF LEEP PAST SURGICAL HISTORY OF 04/2012, 2016 left foot surgery TONSILLECTOMY PRIMARY/SECONDARY Tonsillectomy ALLERGIES Erythromycin Base, Ketorolac Tromethamine, Naproxen, and Tramadol MEDICATIONS albuterol HFA (VENTOLIN HFA) 90 mcg/actuation inhaler Inhale 2 Puffs as instructed every 4 hours as needed for wheezing/shortness of breath. sertraline (ZOLOFT) 50 mg tablet Take 1 tablet by mouth once daily. atorvastatin (LIPITOR) 80 mg tablet Take 1 tablet by mouth daily at bedtime. For cholesterol. cetirizine (ZYRTEC) 10 mg tablet Take 1 tablet by mouth once daily. fluticasone (FLONASE) 50 mcg/actuation nasal spray Use 2 Sprays in each nostril once daily. Rinse mouth after use. folic acid 1 mg tablet Take by mouth. takes 4 tabs once a day pyridoxine HCl, vitamin B6, (VITAMIN B-6 ORAL) Take by mouth. SUMAtriptan (IMITREX) 50 mg tablet Take 50 mg by mouth as needed. levETIRAcetam (KEPPRA) 750 mg tablet Take 1.5 tablets by mouth twice daily. predniSONE (DELTASONE) 10 mg tablet Take 4 tabs daily for 3 days, then 2 tabs daily for 3 days, then 1 tab daily for 3 days with food. (Patient not taking: Reported on 04/05/2024) fluticasone (FLONASE) 50 mcg/actuation nasal spray Use 2 Sprays in each nostril once daily. Rinse mouth after use. (Patient not taking: Reported on 04/05/2024) FAMILY HISTORY Problem Relation Age of Onset Cancer Mother UTERINE Hypertension Mother Lipids Mother Lipids Father other (clot in heart) Father No Known Problems Sister No Known Problems Sister No Known Problems Brother Heart Maternal Grandmother ANGINA Hypertension Maternal Grandmother Diabetes Maternal Grandmother Dementia Maternal Grandmother No Known Problems Maternal Grandfather Hypertension Paternal Grandmother Seizures Daughter Aneurysm Maternal Aunt 2 aunts other (arteriovenous malformation) Maternal Aunt Social History Tobacco Use Smoking status: Every Day Current packs/day: 0.50 Average packs/day: 0.5 packs/day for 18.0 years (9.0 ttl pk-yrs) Types: Cigarettes Smokeless tobacco: Never Tobacco comments: 3 cigarettes a day Vaping Use Vaping status: Never Used Substance Use Topics Alcohol use: No Drug use: No ASSESSMENT/PLAN: 1. Rhinosinusitis - ICD9: 473 (more content not included)...[facility]09-16-2024 History of Present illness Narrative* Mirian Lepe APRN.BRAKE ADJUSTER - 05/21/2024 6:33 PM EDT CC: Patient presents with: Sinusitis: X 1 week HPI: Griselda Concepcion is a 44 year old female who presents to the office with complaint of head congestion, cough, nonproductive, and sinus symptoms for a week. Symptoms are worsening Associated symptoms includes wheezing. Denies fever, nausea, vomiting , and diarrhea. Treatments tried include nothing so far. with no relief of symptoms. Sick contacts: unknown. History of asthma, frequent episodes of bronchitis, chronic bronchitis, bronchiectasis or COPD: No Smoker: No Seasonal/environmental allergies: No The ROS is otherwise negative. The patient's pmh, medications, allergies, and past visits are reviewed. PHYSICAL EXAM: BP 118/72 Pulse 74 Temp 37 C (98.6 F) (Left Tympanic) Resp 16 Wt 75.3 kg (166 lb 0.1 oz) LMP 01/04/2024 (Approximate) SpO2 96% BMI 24.76 kg/m General appearance: alert, cooperative, pleasant, in no acute distress Head: Normocephalic Eyes: EOM's intact, conjunctiva pink and moist, no icterus, sclera white, non-injected Ears: Right ear: External ear/canal- Normal, TM - clear with good landmarks. Left ear: External ear/canal- Normal, TM - clear with good landmarks Oropharynx:moist without lesions Heart: Negative. RRR without obvious murmur, gallop, or rubs. No ectopy. Lungs: clear to auscultation, without rales or wheeze, good air exchange PAST MEDICAL HISTORY Diagnosis Date Abnormal glandular Papanicolaou smear of cervix 02/18/2009 Abn. Pap smear (cervix), f/u with women's health Asthma Brain lesion Dr. 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 : 11/27/2022 Missed Reflex sympathetic dystrophy of other specified site left arm Seasonal allergies Thyroid disease PAST SURGICAL HISTORY Procedure Laterality Date EXCISION GANGLION WRIST DORSAL/VOLAR PRIMARY I&D HEMATOMA SEROMA/FLUID COLLECTION 12/30/2021 left breast INCISION AND DRAINAGE PROCEDURE (W NOTE) Left 03/11/2022 breast PAST SURGICAL HISTORY OF LEFT ARM, CYST Removed PAST SURGICAL HISTORY OF LEEP PAST SURGICAL HISTORY OF 04/2012, 2016 left foot surgery TONSILLECTOMY PRIMARY/SECONDARY <AGE 14 Tonsillectomy ALLERGIES Erythromycin Base, Ketorolac Tromethamine, Naproxen, and Tramadol MEDICATIONS albuterol HFA (VENTOLIN HFA) 90 mcg/actuation inhaler Inhale 2 Puffs as instructed every 4 hours asneeded for wheezing/shortness of breath. sertraline (ZOLOFT) 50 mg tablet Take 1 tablet by mouth once daily. atorvastatin (LIPITOR) 80 mg tablet Take 1 tablet by mouth daily at bedtime. For cholesterol. cetirizine (ZYRTEC) 10 mg tablet Take 1 tablet by mouth once daily. fluticasone (FLONASE) 50 mcg/actuation nasal spray Use 2 Sprays in each nostril once daily. Rinse mouth after use. folic acid 1 mg tablet Take by mouth. takes 4 tabs once a day pyridoxine HCl, vitamin B6, (VITAMIN B-6 ORAL) Take by mouth. SUMAtriptan (IMITREX) 50 mg tablet Take 50 mg by mouth as needed. levETIRAcetam (KEPPRA) 750 mg tablet Take 1.5 tablets by mouth twice daily. predniSONE (DELTASONE) 10 mg tablet Take 4 tabs daily for 3 days, then 2 tabs daily for 3 days, then 1 tab daily for 3 days with food. (Patient not taking: Reported on 04/05/2024) fluticasone (FLONASE) 50 mcg/actuation nasal spray Use 2 Sprays in each nostril once daily. Rinse mouth after use. (Patient not taking: Reported on 04/05/2024) FAMILY HISTORY Problem Relation Age of Onset Cancer Mother UTERINE Hypertension Mother Lipids Mother Lipids Father other (clot in heart) Father No Known Problems Sister No Known Problems Sister No Known Problems Brother Heart Maternal Grandmother ANGINA Hypertension Maternal Grandmother Diabetes Maternal Grandmother Dementia Maternal Grandmother No Known Problems Maternal Grandfather Hypertension Paternal Grandmother Seizures Daughter Aneurysm Maternal Aunt 2 aunts other (arteriovenous malformation) Maternal Aunt Social History Tobacco Use Smoking status: Every Day Current packs/day: 0.50 Average packs/day: 0.5 packs/day for 18.0 years (9.0 ttl pk-yrs) Types: Cigarettes Smokeless tobacco: Never Tobacco comments: 3 cigarettes a day Vaping Use Vaping status: Never Used Substance Use Topics Alcohol use: No Drug use: No ASSESSMENT/PLAN: 1. Rhinosinusitis - ICD9: 473.9, ICD10: J32.9 - DOXYCYCLINE HYCLATE 100 MG TABLET Prescription instructions reviewed with patient as applicable. Potential red flag symptoms discussed with the patient. Reviewed appropriate action plan to take if red flag symptoms occur. Patient agreeable to treatment plan. Mirian Lepe APRN.SHYANNE documented in this encounter[facility] NoteHNO ID: [id number] Author: JOSEY CUETO, ? Service: ? Author Type: Physician Type: Progress Notes Filed: 04/05/2024 11:48 Note Text: Initial Podiatric Office Visit: Chief Complaint: This 44 year old female who presents with chief complaint:left great toenail infection HPI Patient presents to clinic for evaluation of left great toe. Has noticed that her left great toe began draining recently States this started after starting a new job and she was wearing small fitting shoes. She trimmed the nail Clear fluid was expressed Denies any redness or pus Has no other complaints Smokes 1/2 pack of cigarettes/day. PAIN EVALUATION No data found in the last 1 encounters. Hemoglobin A1C (%) Date Value 11/22/2019 5.2 PCP: Ekta Ley MD PAST MEDICAL HISTORY 02/18/2009: Abnormal glandular Papanicolaou smear of cervix Comment: Abn. Pap smear (cervix), f/u with women's health No date: Asthma No date: Brain lesion Comment: Dr. Moya 12/2021: Breast abscess Comment: Left Breast No date: Class 1 obesity due to excess calories without serious comorbidity with body mass index (BMI) of 30.0 to 30.9 in adult 03/14/2003: Depression No date: Dysmenorrhea No date: Dysthymic disorder Comment: Depression (non-psychotic) No date: Excessive or frequent menstruation No date: Generalized convulsive epilepsy without mention of intractable epilepsy Comment: seizures No date: GERD (gastroesophageal reflux disease) No date: Herpes simplex virus (HSV) infection No date: Hyperlipidemia No date: Medical marijuana use Comment: Issued: 12/02/2021. : 11/27/2022 No date: Missed No date: Reflex sympathetic dystrophy of other specified site Comment: left arm No date: Seasonal allergies No date: Thyroid disease Current Outpatient Medications Medication Sig albuterol HFA (VENTOLIN HFA) 90 mcg/actuation inhaler Inhale 2 Puffs as instructed every 4 hours as needed for wheezing/shortness of breath. sertraline (ZOLOFT) 50 mg tablet Take 1 tablet by mouth once daily. atorvastatin (LIPITOR) 80 mg tablet Take 1 tablet by mouth daily at bedtime. For cholesterol. cetirizine (ZYRTEC) 10 mg tablet Take 1 tablet by mouth once daily. fluticasone (FLONASE) 50 mcg/actuation nasal spray Use 2 Sprays in each nostril once daily. Rinse mouth after use. folic acid 1 mg tablet Take by mouth. takes 4 tabs once a day pyridoxine HCl, vitamin B6, (VITAMIN B-6 ORAL) Take by mouth. SUMAtriptan (IMITREX) 50 mg tablet Take 50 mg by mouth as needed. levETIRAcetam (KEPPRA) 750 mg tablet Take 1.5 tablets by mouth twice daily. predniSONE (DELTASONE) 10 mg tablet Take 4 tabs daily for 3 days, then 2 tabs daily for 3 days, then 1 tab daily for 3 days with food. (Patient not taking: Reported on 04/05/2024) fluticasone (FLONASE) 50 mcg/actuation nasal spray Use 2 Sprays in each nostril once daily. Rinse mouth after use. (Patient not taking: Reported on 04/05/2024) No current facility-administered medications for this visit. ALLERGIES Allergen Reactions Erythromycin Base GI Upset Ketorolac Trometham* Rash Naproxen Rash Tramadol GI Upset PAST SURGICAL HISTORY No date: EXCISION GANGLION WRIST DORSAL/VOLAR PRIMARY 12/30/2021: IANDD HEMATOMA SEROMA/FLUID COLLECTION Comment: left breast 03/11/2022: INCISION AND DRAINAGE PROCEDURE (W NOTE); Left Comment: breast No date: PAST SURGICAL HISTORY OF Comment: LEFT ARM, CYST Removed No date: PAST SURGICAL HISTORY OF Comment: LEEP 04/2012, 2016: PAST SURGICAL HISTORY OF Comment: left foot surgery No date: TONSILLECTOMY PRIMARY/SECONDARY Comment: Tonsillectomy FAMILY HISTORY Problem Relation Age of Onset Cancer Mother UTERINE Hypertension Mother Lipids Mother Lipids Father other (clot in heart) Father No Known Problems Sister No Known Problems Sister No Known Problems Brother Heart Maternal Grandmother ANGINA Hypertension Maternal Grandmother Diabetes Maternal Grandmother Dementia Maternal Grandmother No Known Problems Maternal Grandfather Hypertension Paternal Grandmother Seizures Daughter Aneurysm Maternal Aunt 2 aunts other (arteriovenous malformation) Maternal Aunt Social History Tobacco Use Smoking status: Every Day Packs/day: 0.50 Years: 18.00 Additional pack years: 0.00 Total pack years: 9.00 Types: Cigarettes Smokeless tobacco: Never Tobacco comments: 3 cigarettes a day Vaping Use Vaping Use: Never used Substance Use Topics Alcohol use: No Drug use: No REVIEW OF SYSTEMS GENERAL: Negative for Malaise, significant weight loss, fever RESPIRATORY: Negative for cough, wheezing and shortness of breath CARDIOVASCULAR: Negative for chest pain, leg swelling and palpitations GI: Negative for abdominal discomfort, blood in stools or black stools and change in bowel habits : Negative for dysuria, frequency and incontinence MUSCULOSKELETAL: Negative for joint (more content not included)...[facility]08-01-2024 History of Present illness Narrative* Josey Cueto - 04/05/2024 10:48 AM EDT Initial Podiatric Office Visit: Chief Complaint: This 44 year old female who presents with chief complaint:left great toenail infection HPI Patient presents to clinic for evaluation of left great toe. Has noticed that her left great toe began draining recently States this started after starting a new job and she was wearing small fitting shoes. She trimmed the nail Clear fluid was expressed Denies any redness or pus Has no other complaints Smokes 1/2 pack of cigarettes/day. PAIN EVALUATION No data found in the last 1 encounters. Hemoglobin A1C (%) Date Value 11/22/2019 5.2 PCP: Ekta Ley MD PAST MEDICAL HISTORY 02/18/2009: Abnormal glandular Papanicolaou smear of cervix Comment: Abn. Pap smear (cervix), f/u with women's health No date: Asthma No date: Brain lesion Comment: Dr. Moya 12/2021: Breast abscess Comment: Left Breast No date: Class 1 obesity due to excess calories without serious comorbidity with body mass index (BMI) of 30.0 to 30.9 in adult 03/14/2003: Depression No date: Dysmenorrhea No date: Dysthymic disorder Comment: Depression (non-psychotic) No date: Excessive or frequent menstruation No date: Generalized convulsive epilepsy without mention of intractable epilepsy Comment: seizures No date: GERD (gastroesophageal reflux disease) No date: Herpes simplex virus (HSV) infection No date: Hyperlipidemia No date: Medical marijuana use Comment: Issued: 12/02/2021. : 11/27/2022 No date: Missed No date: Reflex sympathetic dystrophy of other specified site Comment: left arm No date: Seasonal allergies No date: Thyroid disease Current Outpatient Medications Medication Sig albuterol HFA (VENTOLIN HFA) 90 mcg/actuation inhaler Inhale 2 Puffs as instructed every 4 hours asneeded for wheezing/shortness of breath. sertraline (ZOLOFT) 50 mg tablet Take 1 tablet by mouth once daily. atorvastatin (LIPITOR) 80 mg tablet Take 1 tablet by mouth daily at bedtime. For cholesterol. cetirizine (ZYRTEC) 10 mg tablet Take 1 tablet by mouth once daily. fluticasone (FLONASE) 50 mcg/actuation nasal spray Use 2 Sprays in each nostril once daily. Rinse mouth after use. folic acid 1 mg tablet Take by mouth. takes 4 tabs once a day pyridoxine HCl, vitamin B6, (VITAMIN B-6 ORAL) Take by mouth. SUMAtriptan (IMITREX) 50 mg tablet Take 50 mg by mouth as needed. levETIRAcetam (KEPPRA) 750 mg tablet Take 1.5 tablets by mouth twice daily. predniSONE (DELTASONE) 10 mg tablet Take 4 tabs daily for 3 days, then 2 tabs daily for 3 days, then 1 tab daily for 3 days with food. (Patient not taking: Reported on 04/05/2024) fluticasone (FLONASE) 50 mcg/actuation nasal spray Use 2 Sprays in each nostril once daily. Rinse mouth after use. (Patient not taking: Reported on 04/05/2024) No current facility-administered medications for this visit. ALLERGIES Allergen Reactions Erythromycin Base GI Upset Ketorolac Trometham* Rash Naproxen Rash Tramadol GI Upset PAST SURGICAL HISTORY No date: EXCISION GANGLION WRIST DORSAL/VOLAR PRIMARY 12/30/2021: I&D HEMATOMA SEROMA/FLUID COLLECTION Comment: left breast 03/11/2022: INCISION AND DRAINAGE PROCEDURE (W NOTE); Left Comment: breast No date: PAST SURGICAL HISTORY OF Comment: LEFT ARM, CYST Removed No date: PAST SURGICAL HISTORY OF Comment: LEEP 04/2012, 2016: PAST SURGICAL HISTORY OF Comment: left foot surgery No date: TONSILLECTOMY PRIMARY/SECONDARY <AGE 14 Comment: Tonsillectomy FAMILY HISTORY Problem Relation Age of Onset Cancer Mother UTERINE Hypertension Mother Lipids Mother Lipids Father other (clot in heart) Father No Known Problems Sister No Known Problems Sister No Known Problems Brother Heart Maternal Grandmother ANGINA Hypertension Maternal Grandmother Diabetes Maternal Grandmother Dementia Maternal Grandmother No Known Problems Maternal Grandfather Hypertension Paternal Grandmother Seizures Daughter Aneurysm Maternal Aunt 2 aunts other (arteriovenous malformation) Maternal Aunt Social History Tobacco Use Smoking status: Every Day Packs/day: 0.50 Years: 18.00 Additional pack years: 0.00 Total pack years: 9.00 Types: Cigarettes Smokeless tobacco: Never Tobacco comments: 3 cigarettes a day Vaping Use Vaping Use: Never used Substance Use Topics Alcohol use: No Drug use: No REVIEW OF SYSTEMS GENERAL: Negative for Malaise, significant weight loss, fever RESPIRATORY: Negative for cough, wheezing and shortness of breath CARDIOVASCULAR: Negative for chest pain, leg swelling and palpitations GI: Negative for abdominal discomfort, blood in stools or black stools and change in bowel habits : Negative for dysuria, frequency and incontinence MUSCULOSKELETAL: Negative for joint pain or swelling, back pain, and muscle pain. SKIN: Negative for lesions, rash, and itching. HEMATOLOGY/LYMPHOLOGY Negative for prolonged bleeding, bruising easily, and swollen nodes. ENDOCRINE: Negative for cold or heat intolerance, polyuria, polydipsia and goiter. NEURO: negative Physical Exam: Constitutional: Pt is a well developed 44 year old female who is alert, oriented and cooperative Eyes: Following during examination. No redness or drainage. Respiratory: RR normal and nonlabored. Even breathing. No evidence of distress or shortness of breath. Psychology: Patient is engaged during conversation. Normal affect and mood. Does not appear depressed or anxious during encounter. Vascular: Dorsalis pedis and posterior tibial pulses faintly palpable as 5 b/l Capillary Fill time < 5 seconds to digits 1-5 b/l Skin temperature warm to cool proximal to distal b/l Hair growth present to digits Neurological: intact light touch/epicritic sensation b/l intact protective sensation no significant neurological deficits Dermatological: Left hallux nail has been debrided. No local signs of infection are present. No drainage. Small amount of dry blood Musculoskeletal/Orthopaedic: Patient has no pain to palpation of b/l feet Radiographs: n/a ASSESSMENT: (L60.8) Onychomadesis of toenail (primary encounter diagnosis) PLAN: Discussed appearance of left great toenail No signs of infection. Discussed the likely chance that the nail was long and she was wearing narrow shoes and led to partial separation of the nail. Now that she has debrided the nail and switched shoes, I suspect she will be fine. I offered removal of the nail but she elected to monitor. I will have patient monitor the toe. If condition were to change, she is to contact the office LOVE Forrest DPM Podiatry [address] [facility] [address] Dept: [phone] Dept * Betsy Snowden RN - 04/05/2024 10:29 AM EDT Patient presents with: Left Great Toe - Established Patient, Ingrown Toenail Patient presents for possible nail infection. States a few days ago she noticed darkness under nail. She trimmed her nail and clearish liquid came out. States that she had worn some shoes that were too small prior to this. documented in this encounterMer[facility]24 NoteHNO ID: [id number] Author: BETSY SNOWDEN RN Service: ? Author Type: Registered Nurse Type: Progress Notes Filed: 04/05/2024 11:48 Note Text: Patient presents with: Left Great Toe - Established Patient, Ingrown Toenail Patient presents for possible nail infection. States a few days ago she noticed darkness under nail. She trimmed her nail and clearish liquid came out. States that she had worn some shoes that were too small prior to this.[facility]07-24-2024 Telephone encounter Note* Telephone Encounter - Nelida Amos - 03/28/2024 1:36 PM EDT Prescription Refill Information The patient has been identified by name and date of : Yes Caregiver verified no other encounters exist for this prescription request: Yes Caregiver confirmed with patient/requestor that no other refills are due, in the near future, with this provider at this time: Yes The last office visit in the department: 12/19/2023 Does the patient have a future office visit with this provider/department: No Requested Prescriptions Pending Prescriptions Disp Refills albuterol HFA (VENTOLIN HFA) 90 mcg/actuation inhaler 18 g 2 Sig: Inhale 2 Puffs as instructed every 4 hours as needed for wheezing/shortness of breath. Nelida Amos March 28, 2024 1:36 PM [facility]07-24-[facility] Miscellaneous Notes* Telephone Encounter - Nelida Amos - 03/28/2024 1:36 PM EDT Prescription Refill Information The patient has been identified by name and date of : Yes Caregiver verified no other encounters exist for this prescription request: Yes Caregiver confirmed with patient/requestor that no other refills are due, in the near future, with this provider at this time: Yes The last office visit in the department: 12/19/2023 Does the patient have a future office visit with this provider/department: No Requested Prescriptions Pending Prescriptions Disp Refills albuterol HFA (VENTOLIN HFA) 90 mcg/actuation inhaler 18 g 2 Sig: Inhale 2 Puffs as instructed every 4 hours as needed for wheezing/shortness of breath. Nelida Amos March 28, 2024 1:36 PM documented in this encounterMer[facility]06-19-2024 NotePatient Outreach (INTMMN) GRISELDA CONCEPCION ([id number]) 1980 F CHT Date Time Provider Department 02/22/24 EKTA LEY INTMMN During your visit today, we recorded the following information about you: Allergies As of Date: 02/22/2024 Noted Allergy Reaction ERYTHROMYCIN BASE 01/16/2003 8 - GI Upset KETOROLAC TROMETHAMINE 11/12/2017 2 - Rash NAPROXEN 11/12/2017 2 - Rash TRAMADOL 02/15/2017 8 - GI Upset Date Reviewed: 02/16/2024 Reviewed by: Andreia Payton LPN - Fully Assessed Visit Diagnosis:Encounter for screening mammogram for breast cancer [Z12.31] Order(s):[facility] SCREENING [facility] LUIS ALFREDO [[id number]] Order #: [id number] FUTURE Prescriptions as of 02/27/2024 - predniSONE (DELTASONE) 10 mg tablet Take 4 tabs daily for 3 days, then 2 tabs daily for 3 days, then 1 tab daily for 3 days with food. - fluticasone (FLONASE) 50 mcg/actuation nasal spray Use 2 Sprays in each nostril once daily. Rinse mouth after use. - albuterol HFA (VENTOLIN HFA) 90 mcg/actuation inhaler Inhale 2 Puffs as instructed every 4 hours as needed for wheezing/shortness of breath. - sertraline (ZOLOFT) 50 mg tablet Take 1 tablet by mouth once daily. - atorvastatin (LIPITOR) 80 mg tablet Take 1 tablet by mouth daily at bedtime. For cholesterol. - cetirizine (ZYRTEC) 10 mg tablet Take 1 tablet by mouth once daily. - fluticasone (FLONASE) 50 mcg/actuation nasal spray Use 2 Sprays in each nostril once daily. Rinse mouth after use. - folic acid 1 mg tablet Take by mouth. takes 4 tabs once a day - pyridoxine HCl, vitamin B6, (VITAMIN B-6 ORAL) Take by mouth. - SUMAtriptan (IMITREX) 50 mg tablet Take 50 mg by mouth as needed. - levETIRAcetam (KEPPRA) 750 mg tablet Take 1.5 tablets by mouth twice daily. Problem List As Of Date 02/22/2024 Noted Resolved REFLEX SYMPATH DYSTRPHY UPPER LIMB [G90.519] 01/18/2003 Migraine without aura [G43.009] 03/14/2003 Generalized convulsive epilepsy (HCC) [G40.309] 03/14/2003 OTHER LEARNING DIFFICULTY [F81.89] 03/14/2003 Depression [F32.A] 03/14/2003 Mild intermittent asthma without complication [*12/02/2005 Obesity, unspecified [E66.9] 04/20/2007 04/09/2015 PAP SMEAR CERVIX W LGSIL [R87.612] 08/14/2008 Papanicolaou smear of cervix with atypical squa*08/14/2008 04/09/2015 Cervical high risk human papillomavirus (HPV) D*08/14/2008 04/09/2015 TOBACCO USE DISORDER [F17.200] 11/07/2008 Goiter [E04.9] 12/17/2009 Supervision of normal first [Z34.00] 05/25/2011 05/25/2011 Supervision of other high-risk [O09.8*05/25/2011 12/20/2012 Porokeratosis [Q82.8] 06/04/2011 04/09/2015 Abnormality of gait [R26.9] 11/05/2011 Skin lesion [L98.9] 01/19/2012 04/09/2015 Lumbar strain [S39.012A] 05/17/2012 04/09/2015 Chronic, continuous use of opioids [F11.90] 10/17/2012 04/09/2015 Chronic pain [G89.29] 10/17/2012 04/09/2015 Left foot pain [M79.672] 10/17/2012 04/09/2015 Benign neoplasm of skin of trunk, except scrotu*02/07/2013 04/09/2015 Hemangioma [D18.00] 02/15/2013 04/09/2015 Hyperlipidemia [E78.5] 01/07/2015 Contusion of scapular region [S40.019A] 02/18/2015 Neoplasm, brain (HCC) [D49.6] 07/06/2016 GERD (gastroesophageal reflux disease) [K21.9] Acute bilateral low back pain without sciatica *05/30/2018 11/27/2021 History of seizures [Z87.898] 01/11/2019 Disability due to neurological disorder [R29.81*01/11/2019 History of asthma [Z87.09] 01/11/2019 11/27/2021 Tobacco use in , antepartum [O99.330] 01/11/2019 11/27/2021 History of depression [Z86.59] 01/11/2019 11/27/2021 History of loop electrosurgical excision proced*01/11/2019 Patient request for diagnostic testing [Z01.89] 01/11/2019 11/27/2021 Asthma [J45.909] Seasonal allergies [J30.2] 11/27/2021 Encounter Status:Closed by [employer], PRODUSER on 02/27/24[facility] 02-16-2024 NoteHNO ID: [id number] Author: DARLYN SHANE APRN.BRAKE ADJUSTER Service: ? Author Type: Nurse Practitioner Type: Progress Notes Filed: 02/16/2024 18:10 Note Text: This note was created using NoteWriter. Subjective Griselda Concepcion is a 43 year old female. 43 year old female with PMH epilepsy, migraines, hyperlipidemia, asthma and GERD presents for illness. Acute onset today +nasal rhinorrhea +green +headache +sinus pressure +congestion Denies cough Denies fever or chills Denies N/V/D Denies body aches or fatigue Has used Mucinex +tobacco smoker The history is provided by the patient. No rug measurer was used. Sinus Problem This is a new problem. The current episode started today. The problem occurs constantly. The problem has been unchanged. Associated symptoms include congestion and headaches. Pertinent negatives include no abdominal pain, anorexia, arthralgias, change in bowel habit, chest pain, chills, coughing, diaphoresis, fatigue, fever, joint swelling, myalgias, nausea, neck pain, numbness, rash, sore throat, swollen glands, urinary symptoms, vertigo, visual change, vomiting or weakness. Nothing aggravates the symptoms. Treatments tried: Mucinex. The treatment provided no relief. PAST MEDICAL HISTORY Diagnosis Date Abnormal glandular Papanicolaou smear of cervix 02/18/2009 Abn. Pap smear (cervix), f/u with women's health Asthma Brain lesion Dr. 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 : 11/27/2022 Missed Reflex sympathetic dystrophy of other specified site left arm Seasonal allergies Thyroid disease PAST SURGICAL HISTORY Procedure Laterality Date EXCISION GANGLION WRIST DORSAL/VOLAR PRIMARY IANDD HEMATOMA SEROMA/FLUID COLLECTION 12/30/2021 left breast INCISION AND DRAINAGE PROCEDURE (W NOTE) Left 03/11/2022 breast PAST SURGICAL HISTORY OF LEFT ARM, CYST Removed PAST SURGICAL HISTORY OF LEEP PAST SURGICAL HISTORY OF 04/2012, 2015 left foot surgery TONSILLECTOMY PRIMARY/SECONDARY Tonsillectomy ALLERGIES Erythromycin Base, Ketorolac Tromethamine, Naproxen, and Tramadol MEDICATIONS albuterol HFA (VENTOLIN HFA) 90 mcg/actuation inhaler Inhale 2 Puffs as instructed every 4 hours as needed for wheezing/shortness of breath. sertraline (ZOLOFT) 50 mg tablet Take 1 tablet by mouth once daily. atorvastatin (LIPITOR) 80 mg tablet Take 1 tablet by mouth daily at bedtime. For cholesterol. cetirizine (ZYRTEC) 10 mg tablet Take 1 tablet by mouth once daily. fluticasone (FLONASE) 50 mcg/actuation nasal spray Use 2 Sprays in each nostril once daily. Rinse mouth after use. folic acid 1 mg tablet Take by mouth. takes 4 tabs once a day pyridoxine HCl, vitamin B6, (VITAMIN B-6 ORAL) Take by mouth. SUMAtriptan (IMITREX) 50 mg tablet Take 50 mg by mouth as needed. levETIRAcetam (KEPPRA) 750 mg tablet Take 1.5 tablets by mouth twice daily. predniSONE (DELTASONE) 10 mg tablet Take 4 tabs daily for 3 days, then 2 tabs daily for 3 days, then 1 tab daily for 3 days with food. fluticasone (FLONASE) 50 mcg/actuation nasal spray Use 2 Sprays in each nostril once daily. Rinse mouth after use. FAMILY HISTORY Problem Relation Age of Onset Cancer Mother UTERINE Hypertension Mother Lipids Mother Lipids Father other (clot in heart) Father No Known Problems Sister No Known Problems Sister No Known Problems Brother Heart Maternal Grandmother ANGINA Hypertension Maternal Grandmother Diabetes Maternal Grandmother Dementia Maternal Grandmother No Known Problems Maternal Grandfather Hypertension Paternal Grandmother Seizures Daughter Aneurysm Maternal Aunt 2 aunts other (arteriovenous malformation) Maternal Aunt Social History Tobacco Use Smoking status: Every Day Packs/day: 0.50 Years: 18.00 Additional pack years: 0.00 Total pack years: 9.00 Types: Cigarettes Smokeless tobacco: Never Tobacco comments: 3 cigarettes a day Vaping Use Vaping Use: Never used Substance Use Topics Alcohol use: No Drug use: No Review of Systems Constitutional: Negative for chills, diaphoresis, fatigue and fever. HENT: Positive for congestion. Negative for sore throat. Respiratory: Negative for cough. Cardiovascular: Negative for chest pain. Gastrointestinal: Negative for abdominal pain, anorexia, change in bowel habit, nausea and vomiting. Musculoskeletal: Negative for arthralgias, joint swelling, myalgias and neck pain. Skin: Negative fo (more content not included)...[facility] 02-16-2024 History of Present illness Narrative* Darlyn Shane, REZA.[facility] - 02/16/2024 5:56 PM EDT This note was created using NoteWriter. Subjective Griselda Concepcion is a 43 year old female. 43 year old female with PMH epilepsy, migraines, hyperlipidemia, asthma and GERD presents for illness. Acute onset today +nasal rhinorrhea +green +headache +sinus pressure +congestion Denies cough Denies fever or chills Denies N/V/D Denies body aches or fatigue Has used Mucinex +tobacco smoker The history is provided by the patient. No rug measurer was used. Sinus Problem This is a new problem. The current episode started today. The problem occurs constantly. The problem has been unchanged. Associated symptoms include congestion and headaches. Pertinent negatives include no abdominal pain, anorexia, arthralgias, change in bowel habit, chest pain, chills, coughing, di aphoresis, fatigue, fever, joint swelling, myalgias, nausea, neck pain, numbness, rash, sore throat, swollen glands, urinary symptoms, vertigo, visual change, vomiting or weakness. Nothing aggravatesthe symptoms. Treatments tried: Mucinex. The treatment provided no relief. PAST MEDICAL HISTORY Diagnosis Date Abnormal glandular Papanicolaou smear of cervix 02/18/2009 Abn. Pap smear (cervix), f/u with women's health Asthma Brain lesion Dr. 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 : 11/27/2022 Missed Reflex sympathetic dystrophy of other specified site left arm Seasonal allergies Thyroid disease PAST SURGICAL HISTORY Procedure Laterality Date EXCISION GANGLION WRIST DORSAL/VOLAR PRIMARY I&D HEMATOMA SEROMA/FLUID COLLECTION 12/30/2021 left breast INCISION AND DRAINAGE PROCEDURE (W NOTE) Left 03/11/2022 breast PAST SURGICAL HISTORY OF LEFT ARM, CYST Removed PAST SURGICAL HISTORY OF LEEP PAST SURGICAL HISTORY OF 04/2012, 2016 left foot surgery TONSILLECTOMY PRIMARY/SECONDARY <AGE 14 Tonsillectomy ALLERGIES Erythromycin Base, Ketorolac Tromethamine, Naproxen, and Tramadol MEDICATIONS albuterol HFA (VENTOLIN HFA) 90 mcg/actuation inhaler Inhale 2 Puffs as instructed every 4 hours asneeded for wheezing/shortness of breath. sertraline (ZOLOFT) 50 mg tablet Take 1 tablet by mouth once daily. atorvastatin (LIPITOR) 80 mg tablet Take 1 tablet by mouth daily at bedtime. For cholesterol. cetirizine (ZYRTEC) 10 mg tablet Take 1 tablet by mouth once daily. fluticasone (FLONASE) 50 mcg/actuation nasal spray Use 2 Sprays in each nostril once daily. Rinse mouth after use. folic acid 1 mg tablet Take by mouth. takes 4 tabs once a day pyridoxine HCl, vitamin B6, (VITAMIN B-6 ORAL) Take by mouth. SUMAtriptan (IMITREX) 50 mg tablet Take 50 mg by mouth as needed. levETIRAcetam (KEPPRA) 750 mg tablet Take 1.5 tablets by mouth twice daily. predniSONE (DELTASONE) 10 mg tablet Take 4 tabs daily for 3 days, then 2 tabs daily for 3 days, then 1 tab daily for 3 days with food. fluticasone (FLONASE) 50 mcg/actuation nasal spray Use 2 Sprays in each nostril once daily. Rinse mouth after use. FAMILY HISTORY Problem Relation Age of Onset Cancer Mother UTERINE Hypertension Mother Lipids Mother Lipids Father other (clot in heart) Father No Known Problems Sister No Known Problems Sister No Known Problems Brother Heart Maternal Grandmother ANGINA Hypertension Maternal Grandmother Diabetes Maternal Grandmother Dementia Maternal Grandmother No Known Problems Maternal Grandfather Hypertension Paternal Grandmother Seizures Daughter Aneurysm Maternal Aunt 2 aunts other (arteriovenous malformation) Maternal Aunt Social History Tobacco Use Smoking status: Every Day Packs/day: 0.50 Years: 18.00 Additional pack years: 0.00 Total pack years: 9.00 Types: Cigarettes Smokeless tobacco: Never Tobacco comments: 3 cigarettes a day Vaping Use Vaping Use: Never used Substance Use Topics Alcohol use: No Drug use: No Review of Systems Constitutional: Negative for chills, diaphoresis, fatigue and fever. HENT: Positive for congestion. Negative for sore throat. Respiratory: Negative for cough. Cardiovascular: Negative for chest pain. Gastrointestinal: Negative for abdominal pain, anorexia, change in bowel habit, nausea and vomiting. Musculoskeletal: Negative for arthralgias, joint swelling, myalgias and neck pain. Skin: Negative for rash. Neurological: Positive for headaches. Negative for vertigo, weakness and numbness. Objective BP 111/74 Pulse 76 Temp 36.2 C (97.2 F) Resp 20 Wt 77 kg (169 lb 12.1 oz) LMP 01/04/2024 (Approximate) SpO2 98% BMI 25.32 kg/m Physical Exam Vitals and nursing note reviewed. Constitutional: General: She is not in acute distress. Appearance: Normal appearance. She is normal weight. She is not ill-appearing, toxic-appearing or diaphoretic. HENT: Head: Normocephalic and atraumatic. Right Ear: Ear canal and external ear normal. Left Ear: Ear canal and external ear normal. Nose: Congestion present. No rhinorrhea. Mouth/Throat: Mouth: Mucous membranes are moist. Pharynx: Posterior oropharyngeal erythema (mild posterior erythema) present. No oropharyngeal exudate. Eyes: General: Right eye: No discharge. Left eye: No discharge. Extraocular Movements: Extraocular movements intact. Conjunctiva/sclera: Conjunctivae normal. Pupils: Pupils are equal, round, and reactive to light. Cardiovascular: Rate and Rhythm: Normal rate and regular rhythm. Pulses: Normal pulses. Heart sounds: Normal heart sounds. No murmur heard. No friction rub. Pulmonary: Effort: Pulmonary effort is normal. No respiratory distress. Breath sounds: Normal breath sounds. No stridor. No wheezing, rhonchi or rales. Chest: Chest wall: No tenderness. Abdominal: General: Abdomen is flat. There is no distension. Palpations: Abdomen is soft. There is no mass. Tenderness: There is no abdominal tenderness. There is no right CVA tenderness, left CVA tenderness, guarding or rebound. Hernia: No hernia is present. Musculoskeletal: General: No swelling, tenderness, deformity or signs of injury. Normal range of motion. Cervical back: Normal range of motion and neck supple. No rigidity. Right lower leg: No edema. Left lower leg: No edema. Lymphadenopathy: Cervical: No cervical adenopathy. Skin: General: Skin is warm and dry. Coloration: Skin is not jaundiced or pale. Findings: No bruising, erythema, lesion or rash. Neurological: General: No focal deficit present. Mental Status: She is alert and oriented to person, place, and time. Cranial Nerves: No cranial nerve deficit. Sensory: No sensory deficit. Motor: No weakness. Coordination: Coordination normal. Gait: Gait normal. Psychiatric: Mood and Affect: Mood normal. Behavior: Behavior normal. Thought Content: Thought content normal. Judgment: Judgment normal. Assessment and Plan ASSESSMENT/PLAN: 1. Sinusitis, unspecified chronicity, unspecified location - ICD9: 473.9, ICD10: J32.9 Acute onset today X 1 day Discussed viral etiology at this point - The patient should also be given OTC cough and cold meds as needed, warm salt water gargles, throat lozenges and/or OTC throat spray as needed, and RX Flonase and Prednisone taper. - Supportive care with plenty of fluids, rest, and analgesia prn. - Follow up in 3-5 days if symptoms persist or worsen. - Patient informed that if symptoms persist at days 7 , then ATB can be considered. Darlyn Shane APRN.BRAKE ADJUSTER documented in this encounterMer[facility]-15-[facility]24 Miscellaneous Notes* Telephone Encounter - Erika Lbuin LPN - 12/19/2023 3:31 PM EDT Patient notified. Erika Lubin LPN * Telephone Encounter - Ekta Ley MD - 12/19/2023 2:45 PM EDT Albuterol refill sent to [facility]. * Telephone Encounter - Laurie Duron - 12/19/2023 2:12 PM EDT Griselda is calling Ekta Ley MD today with concern regarding medication request. Patient requesting her rescue inhaler. She does not know the name of it. Patient has been identified by name and birthdate. Duration of symptoms: N/A Person calling: self Call patient at: on cell [phone] (home) [phone] (cell) Was an appointment scheduled: No Closing statement: Results or non-symptom based questions: Thank you for calling [facility], your call will be returned within the next business day. Laurie Duron documented in this encounterMer[facility]04-10-2024 Miscellaneous Notes* Telephone Encounter - Laurie Duron - 12/14/2023 1:58 PM EDT Griselda is calling Ekta Ley MD today with concern regarding Refill Request Patient states that she needs all of her medication refilled except for her seizure medication. Please send medications to [facility] in [place]. Patient has been identified by name and birthdate. Duration of symptoms:NA Person calling: self Call patient at: on cell [phone] (home) [phone] (cell) Was an appointment scheduled: No Closing statement: Results or non-symptom based questions: Thank you for calling [facility], your call will be returned within the next business day. Laurieedith Duron documented in this encounterMer[facility]10-23-2023 Miscellaneous Notes* Telephone Encounter - Kelsie Domingo RN - 06/27/2023 2:55 PM EDT Triage Protocol Recommended: ER now. Pt agreeable. Reason for Disposition [1] SEVERE headache (e.g., excruciating) AND [2] worst headache of life Answer Assessment - Initial Assessment Questions Patient contacted for further triage. Noted appt made by patient for today for sx's of severe migraine and shakiness. This nurse contacted patient. Pt reports she has chronic migraines however the migraine she has today is worse than usual. Rates it 10/10 pain. Reports feeling weak and shaky today which she states is not typical with her migraines. Reports body feels warm at times. Vomited yesterday and stayed in bed yesterday. Pt states she contacted Neurology today regarding sx's and they cannot see pt for 6 months and she was advised to inform her PCP of sx's. Pt reports she takes Imitrex. Pt reports black mold in her residence, has pictures of it. Reports she has a child also and is concerned about the black mold. Reports her landlord is colbert of this but doesn't care. Reports I want this on file. 1. LOCATION: migraine 2. ONSET: In last 24 hours 3. PATTERN: intermittent 4. SEVERITY: 10 out of 10 5. RECURRENT SYMPTOM: yes 6. CAUSE: as above 7. MIGRAINE: yes 8. HEAD INJURY: denies 9. OTHER SYMPTOMS: Denies fever, no stiff neck, has chronic back pain, no eye pain, no sore throat,has runny nose. Reports harder to breathe at night. Reports has asthma. 10. : no Protocols used: [id number] documented in this encounterMer[facility]09-19-2023 Miscellaneous Notes* Telephone Encounter - Kat Zepeda LPN - 05/24/2023 4:[address]T [address] booked. Kat Zepeda LPN * Telephone Encounter - Demetrice Doyle APRN.CNP - 05/23/2023 10:38 AM EDT Needs to schedule appointment for refills. Demetrice Doyle APRN.SHYANNE * Telephone Encounter - Claudia Macdonald MA - 05/23/2023 8:34 AM EDT NOV, none scheduled Claudia Macdonald MA * Telephone Encounter - Lizabeth Kilgore - 05/20/2023 3:40 PM EDT Patient has been identified by name and date of : Yes Last office visit in this department: 01/04/2022 RX INSTRUCTIONS: Patient aware RX will be sent to pharmacy. No need to notify patient. Patient phones requesting refills as follows: Requested Prescriptions Pending Prescriptions Disp Refills albuterol HFA (VENTOLIN HFA) 90 mcg/actuation inhaler 18 g 5 Sig: Inhale 2 Puffs as instructed every 4 hours as needed for wheezing/shortness of breath. atorvastatin (LIPITOR) 80 mg tablet 90 tablet 1 Sig: Take 1 tablet by mouth daily at bedtime. For cholesterol. Please review and advise. Lizabeth Kilgore documented in this encounterMer[facility]09-19-2023 History of Present illness Narrative* PodlogarDemetrice APRN.BRAKE ADJUSTER - 05/24/2023 9:42 AM EDT 05/24/2023 Patient presents with: Yearly Exam SUBJECTIVE: This is a 43 year old that is here today for Above Complaints. Has not been seen in over a year. Since last office visit has been in good health without ER visits or hospitalizations HYPERLIPIDEMIA: Patient is taking medications: Yes. Patient is watching diet: Yes. Patient denies myalgias: Yes. Patient denies gi upset: Yes Depression: taking Zoloft as prescribed without side effects. Works well to control symptoms. Does not attend counseling. Denies SI, HI or insomnia GERD: taking pepcid OTC. Works well to control heartburn symptoms ASTHMA: using albuterol inhaler more since the weather has been changing, about once a day.. Does not some wheezing at times. Continues to smoke about a half a pack a day. Working on quitting. Has tried several medications for cessation but did not find helpful. Denies SOB, dyspnea, orthopnea or cough Sees neurologist, Dr. Moya for hx of seizures and migraines. Taking her Keppra as prescribed. Imitrex works well to abort migraines. Sees him yearly PAST MEDICAL HISTORY Diagnosis Date Abnormal glandular Papanicolaou smear of cervix 02/18/2009 Abn. Pap smear (cervix), f/u with women's health Asthma Brain lesion Dr. 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 : 11/27/2022 Missed Reflex sympathetic dystrophy of other specified site left arm Seasonal allergies Thyroid disease ALLERGIES Erythromycin Base, Ketorolac Tromethamine, Naproxen, and Tramadol MEDICATIONS Current Outpatient Medications Medication Sig atorvastatin (LIPITOR) 80 mg tablet Take 1 tablet by mouth daily at bedtime. For cholesterol. albuterol HFA (VENTOLIN HFA) 90 mcg/actuation inhaler Inhale 2 Puffs as instructed every 4 hours asneeded for wheezing/shortness of breath. cetirizine (ZYRTEC) 10 mg tablet Take 1 tablet by mouth once daily. famotidine (PEPCID) 20 mg tablet Take 1 tablet by mouth twice daily. fluticasone (FLONASE) 50 mcg/actuation nasal spray Use 2 Sprays in each nostril once daily. Rinse mouth after use. sertraline (ZOLOFT) 50 mg tablet Take 1 tablet by mouth once daily. folic acid 1 mg tablet Take by mouth. takes 4 tabs once a day pyridoxine HCl, vitamin B6, (VITAMIN B-6 ORAL) Take by mouth. SUMAtriptan (IMITREX) 50 mg tablet Take 50 mg by mouth as needed. levETIRAcetam (KEPPRA) 750 mg tablet Take 1.5 tablets by mouth twice daily. oxyCODONE-acetaminophen (PERCOCET) 5-325 mg tablet Take 1 tablet by mouth four times daily as needed for pain. FOR PAIN. (Patient not taking: Reported on 03/31/2022) No current facility-administered medications for this visit. Medications and allergies reviewed by this provider. SOCIAL HISTORY Social History Tobacco Use Smoking status: Every Day Packs/day: 0.50 Years: 18.00 Additional pack years: 0.00 Total pack years: 9.00 Types: Cigarettes Smokeless tobacco: Never Tobacco comments: 3 cigarettes a day Vaping Use Vaping Use: Never used Substance Use Topics Alcohol use: No Drug use: No REVIEW OF SYSTEMS GENERAL: No weight loss, malaise or fevers HEENT: Negative for frequent or significant headaches, No changes in hearing or vision, no nose bleeds or other nasal problems NECK: Negative for lumps, goiter, pain and significant neck swelling RESPIRATORY: Negative for cough, hemoptysis, wheezing, COPD, dyspnea or shortness of breath CARDIOVASCULAR: Negative for chest pain, leg swelling, hypertension, CHF or palpitations GI: No nausea, vomiting, or diarrhea : No history of dysuria, frequency or incontinence 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 OBJECTIVE: BP 112/68 Pulse 86 Resp 18 Ht 174.4 cm (5' 8.66) Wt 84 kg (185 lb 3.2 oz) LMP 03/03/2022 SpO2 92% BMI 27.62 kg/m . Vital signs reviewed by this provider. APPEARANCE Well appearing, alert, in no acute distress, well-hydrated, well nourished. EYES conjunctiva and sclera normal. EARS External ears normal, canals clear NECK Supple, no adenopathy; thyroid symmetric, normal size, no bruits HEART RRR with normal S1 and S2, no murmurs, no gallops, no JVD appreciated LUNG clear to auscultation. No wheezes, rhonchi or rales ABDOMEN bowel sounds normoactive, no bruits, soft, non-tender, non-distended EXTREMITIES Extremities normal, No deformities, No skin discoloration, and No edema SKIN Skin color, texture, turgor normal, no suspicious rashes or lesions to exposed skin Component Latest Ref Rng & Units 11/30/2021 Protein, Total 6.3 - 8.0 g/dL 5.8 (L) Albumin 3.9 - 4.9 g/dL 2.9 (L) Calcium 8.5 - 10.2 mg/dL 8.6 Bilirubin, Total 0.2 - 1.3 mg/dL <0.2 (L) Alkaline Phosphatase 34 - 123 U/L 90 AST 13 - 35 U/L 9 (L) ALT 7 - 38 U/L 5 (L) Glucose 74 - 99 mg/dL 118 (H) BUN 7 - 21 mg/dL 4 (L) Creatinine 0.58 - 0.96 mg/dL 0.64 Sodium 136 - 144 mmol/L 139 Potassium 3.7 - 5.1 mmol/L 3.8 Chloride 97 - 105 mmol/L 107 (H) CO2 22 - 30 mmol/L 26 Anion Gap 9 - 18 mmol/L 6 (L) eGFR >=60 mL/min/1.73m 115 WBC 3.70 - 11.00 k/uL 7.71 RBC 3.90 - 5.20 m/uL 4.60 Hemoglobin 11.5 - 15.5 g/dL 14.4 Hematocrit 36.0 - 46.0 % 42.7 MCV 80.0 - 100.0 fL 92.8 MCH 26.0 - 34.0 pg 31.3 MCHC 30.5 - 36.0 g/dL 33.7 RDW-CV 11.5 - 15.0 % 12.3 Platelet Count 150 - 400 k/uL 234 MPV 9.0 - 12.7 fL 8.2 (L) Absolute nRBC <0.01 k/uL <0.01 Total Cholesterol, Nonfasting <200 mg/dL 279 (H) Triglycerides, Nonfasting <150 mg/dL 164 (H) HDL Cholesterol, Nonfasting >39 mg/dL 36 (L) LDL Cholesterol, Nonfasting <100 mg/dL 210 (H) Non HDL Cholesterol, Nonfasting <130 mg/dL 243 (H) VLDL Cholesterol, Nonfasting <30 mg/dL 33 (H) Total Chol/HDL Ratio, Nonfasting <5.10 mg/dL 7.75 (H) LDL/HDL Ratio, Nonfasting <2.54 mg/dL 5.83 (H) TSH 0.270 - 4.200 mIU/L 0.967 Free T4 0.9 - 1.7 ng/dL 1.0 Microsomal Antibody <5.6 IU/mL <1.0 Hepatitis B Vaccine(1 of 3 - 3-dose series) Never done Spirometry Never done Covid-19 Vaccine(4 - Pfizer series) due on 01/22/2022 Mammogram Screening Never done Annual PCP Team Chronic Disease Visit due on 05/24/2024 Pap Testing due on 10/26/2024 HPV Testing due on 10/26/2024 DTaP,Tdap,Td Vaccine(3 - Td or Tdap) due on 06/16/2030 Pneumococcal Vaccine(3 - PPSV23 or PCV20) due on 2047 HPV Vaccine Completed Influenza Vaccine Completed Hepatitis C Screening Completed HIV Screening Completed ASSESSMENT/PLAN: 1. Annual physical exam - ICD9: V70.0, ICD10: Z00.00 (primary diagnosis) - Counseled on healthy diet and regular exercise - Calcium intake with supplements or by diet of 1000 mg/day for under 50, 1200- 1500 mg/day for 50+ - Smoking cessation encouraged; discussed risks to health and quitting strategies. Patient is readyto quit - Follow up for annual exam in one year - LIPID PANEL BASIC - COMP METABOLIC PANEL - CBC + DIFF 2. Mild intermittent asthma without complication - ICD9: 493.90, ICD10: J45.20 - Mild persistent asthma stable - Continue current medications - Avoidance of triggers recommended - Follow up in 1 year, sooner should any other issues arise. - ALBUTEROL SULFATE HFA 90 MCG/ACTUATION AEROSOL INHALER 3. Gastroesophageal reflux disease with esophagitis without hemorrhage - ICD9: 530.81, 530.10, ICD10: K21.00 - stable on current regime - continue to work in tobacco cessation 4. Mixed hyperlipidemia - ICD9: 272.2, ICD10: E78.2 - Control undetermined, due for labs - Continue current medications - Counseled on healthy diet and regular exercise - Follow up in 1 year, sooner should any other issues arise. - ATORVASTATIN 80 MG TABLET - LIPID PANEL BASIC - COMP METABOLIC PANEL 5. Encounter for immunization - ICD9: V03.89, ICD10: Z23 - INFLUENZA VACCINE, AGE 6 MO - 64 YR, QUADRIVALENT (AFLURIA, FLULAVAL, FLUZONE) 6. Tobacco use disorder - ICD9: 305.1, ICD10: F17.200 - Cessation encouraged. - Physiologic and physical aspects of tobacco addiction as well as strategies for quitting were discussed. - Counseling was given focusing on the harmful effects of this addiction especially given the patient's medical condition(s) which will be worsened because of the chemicals in tobacco. - Counseling was given 3-4 minutes. - handout for smoking cessation resources provided 7. Generalized convulsive epilepsy (HCC) - ICD9: 345.10, ICD10: G40.309 - stable - continue to follow with neurology as recommended 8. Migraine without aura and without status migrainosus, not intractable - ICD9: 346.10, ICD10: G43.009 - stable - continue to follow with neurology as recommended 9. Major depressive disorder, remission status unspecified, unspecified whether recurrent - ICD9: 296.20, ICD10: F32.9 - controlled on current regime - follow-up as needed Demetrice Doyle APRN.CNP Prescription instructions reviewed with patient as applicable. Patient advised if symptoms do not improve or if symptoms worsen sooner, to contact their primary care physician. Potential red flag symptoms discussed with the patient. Reviewed appropriate action plan to take if red flag symptoms occur. Patient agreeable to treatment plan. documented in this encounterMer[facility]09-07-[facility]23 Miscellaneous Notes* Telephone Encounter - Nancy Mercedes Ma - 05/12/2023 9:39 AM EDT Patient has no showed last 3 appointments notified need to be seen Nancy Mercedes Ma * Telephone Encounter - Ashly Barlow - 05/10/2023 4:53 PM EDT Patient has been identified by name and date of : Yes Last office visit in this department: Visit date not found RX INSTRUCTIONS: Patient aware RX will be sent to pharmacy. No need to notify patient. Patient phones requesting refills as follows: Requested Prescriptions Pending Prescriptions Disp Refills albuterol HFA (VENTOLIN HFA) 90 mcg/actuation inhaler 18 g 5 Sig: Inhale 2 Puffs as instructed every 4 hours as needed for wheezing/shortness of breath. Refused Prescriptions Disp Refills VENTOLIN HFA 90 mcg/actuation inhaler [Pharmacy Med Name: Ventolin HFA 90 mcg/actuation aerosol inhaler] 18 g 5 Sig: Inhale 2 Puffs as instructed every 4 hours as needed for wheezing/shortness of breath. Refused By: CLAUDIA MACDONALD Reason for Refusal: Patient should contact Prescriber first Please review and advise. Ashly Barlow documented in this encounterMercy Health [facility]05-26-2023 Miscellaneous Notes* Telephone Encounter - La Nena Calix LPN - 01/28/2023 2:07 PM EDT IMAN 01/04/22 NOV 02/03/23 * Telephone Encounter - Laurie Duron - 01/28/2023 1:19 PM EDT Patient has been identified by name and date of : Yes Requested Prescriptions Pending Prescriptions Disp Refills atorvastatin (LIPITOR) 80 mg tablet 90 tablet 1 Sig: Take 1 tablet by mouth daily at bedtime. For cholesterol. RX INSTRUCTIONS: Patient aware RX will be sent to pharmacy. No need to notify patient. Laurie Duron documented in this encounterMercy Health [facility]03-06-2023 Miscellaneous Notes* Telephone Encounter - Edgard Gómez APRN.CNP - 11/08/2022 11:17 AM EST Refills sent. Patient needs scheduled for wellness visit. * Telephone Encounter - La Nena Calix LPN - 11/05/2022 3:16 PM EST IMAN 01/04/22 NOV no upcoming appointment noted * Telephone Encounter - Linda Yu - 11/05/2022 2:44 PM EST Pharmacy verified in Epic Patient has been identified by name and date of : Yes Patient aware RX will be sent to pharmacy. No need to notify patient. Patient phones for refill(s): Requested Prescriptions Pending Prescriptions Disp Refills albuterol HFA (VENTOLIN HFA) 90 mcg/actuation inhaler 18 g 5 Sig: Inhale 2 Puffs as instructed every 4 hours as needed for wheezing/shortness of breath. cetirizine (ZYRTEC) 10 mg tablet 90 tablet 3 Sig: Take 1 tablet by mouth once daily. famotidine (PEPCID) 20 mg tablet 180 tablet 3 Sig: Take 1 tablet by mouth twice daily. Date of last office visit : Visit date not found Date of next office visit : Visit date not found Last 2 Encounter Wt Readings: Date: Wt: 03/31/2022 89.5 kg (197 lb 6.4 oz) 03/24/2022 88.9 kg (196 lb) Please advise. Linda Ornelas Pss documented in this encounterMercy Health [facility]10-03-2022 Miscellaneous Notes* Telephone Encounter - Marisela Salgado LPN - 06/07/2022 1:58 PM EDT Last OV: 01/04/22 - No future appts scheduled. Last lipid panel: Component Latest Ref Rng & Units 11/30/2021 Total Cholesterol, Nonfasting <200 mg/dL 279 (H) Triglycerides, Nonfasting <150 mg/dL 164 (H) HDL Cholesterol, Nonfasting >39 mg/dL 36 (L) LDL Cholesterol, Nonfasting <100 mg/dL 210 (H) Non HDL Cholesterol, Nonfasting <130 mg/dL 243 (H) VLDL Cholesterol, Nonfasting <30 mg/dL 33 (H) Total Chol/HDL Ratio, Nonfasting <5.10 mg/dL 7.75 (H) LDL/HDL Ratio, Nonfasting <2.54 mg/dL 5.83 (H) No future labs ordered. Patient has been identified by name and date of : Yes Requested Prescriptions Pending Prescriptions Disp Refills atorvastatin (LIPITOR) 80 mg tablet 90 tablet 1 Sig: Take 1 tablet by mouth daily at bedtime. For cholesterol. RX INSTRUCTIONS: Patient aware RX will be sent to pharmacy. No need to notify patient. Marisela Salgado LPN documented in this encounterMercy [facility]09-08-2022 Miscellaneous Notes* Telephone Encounter - La Nena Calix LPN - 05/13/2022 3:17 PM EDT Patient phones requesting refills as follows: Requested Prescriptions Pending Prescriptions Disp Refills albuterol HFA (VENTOLIN HFA) 90 mcg/actuation inhaler 18 g 5 Sig: Inhale 2 Puffs as instructed every 4 hours as needed for wheezing/shortness of breath. IMAN 01/04/22 NOV 05/31/22 Please review and advise. La Nena Calix LPN * Telephone Encounter - Laurie Duron - 05/13/2022 2:21 PM EDT Patient has been identified by name and date of : Yes Patient's mother calling to request patient's inhaler be refilled. Mother did not know the name of it. Please send to [facility]. RX INSTRUCTIONS: Patient aware RX will be sent to pharmacy. No need to notify patient. Laurie Duron documented in this encounterMercy Health [facility]07-29-2022 History of Present illness Narrative* Betsy Romeo PA-C - 04/02/2022 3:31 PM EDT Patient presents with: Follow Up: left breast follow up Griselda Concepcion is a 42 year old female I am following with Dr. Kalpana Ivy. Per my last note form 03/24/22: Griselda is a patient I am following with Dr. Ivy for recurrent abscess of her left breast. Dr. Ivy performed an incision and drainage of the left breast abscess on 03/11/22 at [facility]. The patient notes no complaints of fever since the procedure. Pain has been mild to moderate. Patient returns for wound check today noting no new complaints. States area is still a little tender but improving each day. Notes they are no longer really having to pack it. Notes minimal drainage on dressings. Pulse 103 Temp 36.1 C (97 F) Wt 89.5 kg (197 lb 6.4 oz) LMP 03/03/2022 SpO2 96% BMI 30.01kg/m General: patient is alert, cooperative, pleasant and in no acute distress On examination, the wound is granulating in nicely with minimal slough noted Assessment: s/p I&D of left breast abscess, wound healing well Plan: -Continue cleansing wound daily with antibacterial soap and water and/or saline -OK to lightly debride inside of wound with damp washcloth -Follow up in 10-14 days for wound check or sooner if any concerns Patient verbalized understanding of all above and agreed with the plan. Betsy Romeo PA-C documented in this encounterMercy Health [facility]iff[facility]07-27-2022 Instructions* Patient Instructions* Betsy Romeo PA-C - 03/31/2022 3:23 PM EDT -Continue cleansing wound daily with antibacterial soap and water and/or saline -OK to lightly scrub inside of wound with damp washcloth -Follow up in 10-14 days for wound check documented in this encounterMercy Health [facility]iff[facility]07-26-2022 History of Present illness Narrative* Betsy Romeo PA-C - 03/30/2022 1:32 PM EDT FOLLOW UP VISIT - ABSCESS NAME: Griselda Concepcion [facility] NO.: [id number] DATE OF SERVICE: 03/24/2022 : 1980 REFERRING PHYSICIAN: Ekta Ley MD Griselda is a patient I am following with Dr. Ivy for recurrent abscess of her left breast. Dr. Ivy performed an incision and drainage of the left breast abscess on 03/11/22 at [facility]. The patient notes no complaints of fever since the procedure. Pain has been mild to moderate. VITALS: Blood pressure 108/62, pulse 97, temperature 36.1 C (97 F), height 172.7 cm (5' 8), enpjki66.9 kg (196 lb), last menstrual period 03/03/2022, SpO2 91 %. On examination, the incision site is viable with no drainage noted. The packing was removed to reveal excellent granulation tissue formation. New packing and dressing placed Assessment IMPRESSION: Status post incision and drainage of left breast abscess PLAN: Continue daily wet-to-dry dressing changes Follow up for wound check in 7-10 days Alternate ibuprofen and tylenol for pain control Patient verbalized understanding of all above and agreed with the plan. Diagnoses: (Z98.890) Status post incision and drainage (primary encounter diagnosis) (S21.002D) Open wound of left breast, subsequent encounter Betsy Romeo PA-C documented in this encounterMercy Health [facility]07-20-2022 Instructions* Patient Instructions* Betsy Romeo PA-C - 03/24/2022 9:08 AM EDT Continue daily wet-to-dry dressing changes Follow up for wound check in 7-10 days Alternate ibuprofen and tylenol for pain control documented in this encounterMercy Health [facility]iff[facility]07-12-2022 History of Present illness Narrative* Kalpana Ivy MD - 03/16/2022 1:41 PM EDT FOLLOW UP VISIT NAME: Griselda Concepcion [facility] NO.: [id number] DATE OF SERVICE: 03/16/2022 : 1980 REFERRING PHYSICIAN: Ekta Ley MD Griselda is status post incision and drainage of left breast abscess done on March 11, 2022.. VITALS: Blood pressure 118/62, pulse (!) 128, temperature (!) 35.9 C (96.6 F), height 172.7 cm (5' 8), weight 89.4 kg (197 lb), last menstrual period 03/03/2022, SpO2 93 %. On examination, the wound cavity is granulating in very well. The surrounding skin is normal. Thereis no undrained area of purulent material. Assessment IMPRESSION: s/p incision and drainage of left breast abscess PLAN: Patient and her mother were educated as to wound packing changes. Follow up in a week with Betsy Romeo PA-C Patient is requesting more pain medications, I have prescribed additional pain medications for patient, but I have cautioned her as to the addictive effects of narcotics (recommending alternating acetaminophen and ibuprofen instead) and she acknowledges this. Diagnoses: (Z98.890) Status post incision and drainage (primary encounter diagnosis) (G89.18) Postoperative pain I have confirmed and edited as necessary, the PFSH and ROS obtained by others. Kalpana Ivy MD documented in this encounterMercy Health [facility]07-07-2022 Nurse Note* Lavon Candelaria RN - 03/11/2022 4:52 PM EDT Patient remained alert and oriented and without distress throughout post-op stay. Oxygen saturationdropped into the 80's while on room air without patient complaining of shortness of breath while inpost op care. Oxygen saturation went up into 90's while on 2L of O2 via nasal canula. Lung sounds clear bilaterally posteriorly. Albuterol metered dose inhaler was ordered and given with positive results of oxygen saturations into the 90's. Dr. Ivy ordered patient incentive spirometer with goal of>2000. Patient's best on incentive spirometer was 3500. Patient advised to use incentive spirometer 10 times every hour while recovering at home. Patient was discharged after Dr Ivy and Dr Ramos assessed patient and gave verbal order to discharge. Home going instructions given to both patient and her mother Flora both with voiced understanding. documented in this encounterMercy Health [facility]07-07-2022 Hospital course Narrative * Kalpana Ivy MD - 03/11/2022 3:13 PM EDT Can also use the following pain regimen Acetaminophen (Tylenol) 650 mg, then in 3-4 hours take 600 mg ibuprofen (Motrin), then in 3-4 hourstake 650 mg acetaminophen, then in 3-4 hours take 600 mg ibuprofen and so on and continue this over1-2 days Take narcotic pain prescribed medication for breakthrough pain and at night Ice packs to the area as tolerated It is normal to have swelling and bruising in the area Ambulation is encouraged. For breast surgeries: Wear supportive bra so as to avoid the weight of your breast from pulling on the operative site Drink plenty of fluids If you are feeling constipated, you make take an over the counter laxatives Sponge bathe only Walking is encouraged Call for a date and time for a follow up appointment on March 15, thank you. documented in this encounterMercy Health [facility]07-07-2022 Miscellaneous Notes* Brief Op Note - Kalpana Ivy MD - 03/11/2022 2:57 PM EDT BRIEF OPERATIVE NOTE SURGERY DATE: 03/11/2022 Incision/Procedure Start Time: 14:40 Incision Close/Procedure End Time: 14:52 Surgeon(s)/Proceduralist(s) and Industrial Security Analyst(s): first Bijuassistant infant toddler teacher Betsy Romeo Procedures: Deep incision and drainage of left breast abscess Anesthesia: MAC/local Findings: deep left breast abscess with chronic inflamed tissue and chronically inflamed nipple ductal tissue Estimated Blood Loss: > 5ml Specimens: left breast tissue Complications: None Preop Diagnosis: left breast abscess due to periductal abscess Postop Diagnosis: same SIGNATURE: Kalpana Ivy MD PATIENT NAME: Griselda Concepcion DATE: March 11, 2022 TIME: 2:57 PM documented in this encounterMercy Health [facility]07-06-2022 History and physical note * Kalpana Ivy MD - 03/10/2022 3:27 PM EDT HISTORY AND PHYSICAL Griselda Concepcion 1980 REFERRING PHYSICIAN: MD Alexey CHIEF COMPLAINT: Follow Up (right breast abscess) HPI: The patient is a 42 year old female presents with recurrent left breast abscess. She is s/p incision I&D at [facility] in December of this year. She has noted in the past few days increasing swelling/redness/pain in the area. Patient admits to cigarettes use, trying to cut down She has been on antibiotics multiple times. PAST MEDICAL HISTORY Diagnosis Date Abnormal glandular Papanicolaou smear of cervix 02/18/2009 Abn. Pap smear (cervix), f/u with women's health Asthma Brain lesion Dr. 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 : 11/27/2022 Missed Reflex sympathetic dystrophy of other specified site left arm Seasonal allergies Thyroid disease PAST SURGICAL HISTORY Procedure Laterality Date EXCISION GANGLION WRIST DORSAL/VOLAR PRIMARY I&D HEMATOMA SEROMA/FLUID COLLECTION 12/30/2021 left breast PAST SURGICAL HISTORY OF LEFT ARM, CYST Removed PAST SURGICAL HISTORY OF LEEP PAST SURGICAL HISTORY OF 04/2012, 2015 left foot surgery TONSILLECTOMY PRIMARY/SECONDARY <AGE 12 Tonsillectomy Current Outpatient Medications Medication Sig atorvastatin (LIPITOR) 80 mg tablet Take 1 tablet by mouth daily at bedtime. For cholesterol. albuterol HFA (VENTOLIN HFA) 90 mcg/actuation inhaler Inhale 2 Puffs as instructed every 4 hours asneeded for wheezing/shortness of breath. famotidine (PEPCID) 20 mg tablet Take 1 tablet by mouth twice daily. fluticasone (FLONASE) 50 mcg/actuation nasal spray Use 2 Sprays in each nostril once daily. Rinse mouth after use. cetirizine (ZYRTEC) 10 mg tablet Take 1 tablet by mouth once daily. sertraline (ZOLOFT) 50 mg tablet Take 1 tablet by mouth once daily. folic acid 1 mg tablet Take by mouth. takes 4 tabs once a day pyridoxine HCl, vitamin B6, (VITAMIN B-6 ORAL) Take by mouth. SUMAtriptan (IMITREX) 50 mg tablet levETIRAcetam (KEPPRA) 750 mg tablet Take 1.5 tablets by mouth twice daily. oxyCODONE-acetaminophen (PERCOCET) 5-325 mg tablet Take 1 tablet by mouth four times daily as needed for pain. FOR PAIN. (Patient not taking: Reported on 02/11/2022) ALLERGIES: Erythromycin Base, Ketorolac Tromethamine, Naproxen, and Tramadol PERSONAL HISTORY: Social History Tobacco Use Smoking status: Current Every Day Smoker Packs/day: 0.50 Years: 18.00 Pack years: 9.00 Types: Cigarettes Smokeless tobacco: Never Used Tobacco comment: 3 cigarettes a day Vaping Use Vaping Use: Never used Substance Use Topics Alcohol use: No Drug use: No FAMILY HISTORY Problem Relation Age of Onset Cancer Mother UTERINE Hypertension Mother Lipids Mother Lipids Father other (clot in heart) Father No Known Problems Sister No Known Problems Sister No Known Problems Brother Heart Maternal Grandmother ANGINA Hypertension Maternal Grandmother Diabetes Maternal Grandmother Dementia Maternal Grandmother No Known Problems Maternal Grandfather Hypertension Paternal Grandmother Seizures Daughter Aneurysm Maternal Aunt 2 aunts other (arteriovenous malformation) Maternal Aunt REVIEW OF SYMPTOMS: The review of systems data was entered by the nurse and reviewed by me There are no exam notes on file for this visit. PHYSICAL EXAMINATION: General: The patient is 42 year old female, well nourished, well hydrated in no acute distress. Thepatient is oriented to time, place, and person. VITALS: Blood pressure 102/64, pulse 109, temperature 36.6 C (97.8 F), height 172.7 cm (5' 8), weight 91.6 kg (202 lb), last menstrual period 12/07/2021, SpO2 97 %. Body mass index is 30.71 kg/m . Head: Normal cephalic, atraumatic Eyes: pupils are equally round, sclera are clear/anicteric Neck is supple with no tracheal deviation Chest/breast - erythema/tenderness/swelling around periareolar area of left breast slightly more medially, incisional site noted - < 1 cm Respiratory: Normal respiratory excursion and pattern. Cardiac: regular rate,normal heart sounds Abdominal exam: benign Extremities: no clubbing, cyanosis or edema. Neuro: non focal Psych: normal mood IMPRESSION: left breast abscess, probably due to periductal mastitis PLAN: I have discussed the above with the patient. I have explained periductal mastitis to patient and that she needs to stop cigarettes use. I have offered incision and drainage of this left breast abscess. I have explained the procedure to the patient. This will be a large opening that will have to heal by secondary intention and will require daily wound packing changes by the patient - via family member or friend, etc. There WILL be cosmetic deformity. I have counseled the patient as to the risks of the procedure, including but not limited to: infection, bleeding, injury to any blood vessels/nerves, scar tissue, continued wound infections, cosmetic deformity, complications of anesthesia, etc. the patient understands. The patient wishes to proceed. I have answered all questions to the patient s satisfaction and the patient has no further questions. documented in this encounterMercy Health [facility]07-05-2022 History of Present illness Narrative* Kalpana Ivy MD - 03/09/2022 3:41 PM EDT HISTORY AND PHYSICAL Griselda Concepcion 1980 REFERRING PHYSICIAN: MD Alexey CHIEF COMPLAINT: Follow Up (right breast abscess) HPI: The patient is a 42 year old female presents with recurrent left breast abscess. She is s/p incision I&D at [facility] in December of this year. She has noted in the past few days increasing swelling/redness/pain in the area. Patient admits to cigarettes use, trying to cut down She has been on antibiotics multiple times. PAST MEDICAL HISTORY Diagnosis Date Abnormal glandular Papanicolaou smear of cervix 02/18/2009 Abn. Pap smear (cervix), f/u with women's health Asthma Brain lesion Dr. 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 : 11/27/2022 Missed Reflex sympathetic dystrophy of other specified site left arm Seasonal allergies Thyroid disease PAST SURGICAL HISTORY Procedure Laterality Date EXCISION GANGLION WRIST DORSAL/VOLAR PRIMARY I&D HEMATOMA SEROMA/FLUID COLLECTION 12/30/2021 left breast PAST SURGICAL HISTORY OF LEFT ARM, CYST Removed PAST SURGICAL HISTORY OF LEEP PAST SURGICAL HISTORY OF 04/2012, 2016 left foot surgery TONSILLECTOMY PRIMARY/SECONDARY <AGE 14 Tonsillectomy Current Outpatient Medications Medication Sig atorvastatin (LIPITOR) 80 mg tablet Take 1 tablet by mouth daily at bedtime. For cholesterol. albuterol HFA (VENTOLIN HFA) 90 mcg/actuation inhaler Inhale 2 Puffs as instructed every 4 hours asneeded for wheezing/shortness of breath. famotidine (PEPCID) 20 mg tablet Take 1 tablet by mouth twice daily. fluticasone (FLONASE) 50 mcg/actuation nasal spray Use 2 Sprays in each nostril once daily. Rinse mouth after use. cetirizine (ZYRTEC) 10 mg tablet Take 1 tablet by mouth once daily. sertraline (ZOLOFT) 50 mg tablet Take 1 tablet by mouth once daily. folic acid 1 mg tablet Take by mouth. takes 4 tabs once a day pyridoxine HCl, vitamin B6, (VITAMIN B-6 ORAL) Take by mouth. SUMAtriptan (IMITREX) 50 mg tablet levETIRAcetam (KEPPRA) 750 mg tablet Take 1.5 tablets by mouth twice daily. oxyCODONE-acetaminophen (PERCOCET) 5-325 mg tablet Take 1 tablet by mouth four times daily as needed for pain. FOR PAIN. (Patient not taking: Reported on 02/11/2022) ALLERGIES: Erythromycin Base, Ketorolac Tromethamine, Naproxen, and Tramadol PERSONAL HISTORY: Social History Tobacco Use Smoking status: Current Every Day Smoker Packs/day: 0.50 Years: 18.00 Pack years: 9.00 Types: Cigarettes Smokeless tobacco: Never Used Tobacco comment: 3 cigarettes a day Vaping Use Vaping Use: Never used Substance Use Topics Alcohol use: No Drug use: No FAMILY HISTORY Problem Relation Age of Onset Cancer Mother UTERINE Hypertension Mother Lipids Mother Lipids Father other (clot in heart) Father No Known Problems Sister No Known Problems Sister No Known Problems Brother Heart Maternal Grandmother ANGINA Hypertension Maternal Grandmother Diabetes Maternal Grandmother Dementia Maternal Grandmother No Known Problems Maternal Grandfather Hypertension Paternal Grandmother Seizures Daughter Aneurysm Maternal Aunt 2 aunts other (arteriovenous malformation) Maternal Aunt REVIEW OF SYMPTOMS: The review of systems data was entered by the nurse and reviewed by me There are no exam notes on file for this visit. PHYSICAL EXAMINATION: General: The patient is 42 year old female, well nourished, well hydrated in no acute distress. Thepatient is oriented to time, place, and person. VITALS: Blood pressure 102/64, pulse 109, temperature 36.6 C (97.8 F), height 172.7 cm (5' 8), weight 91.6 kg (202 lb), last menstrual period 12/07/2021, SpO2 97 %. Body mass index is 30.71 kg/m . Head: Normal cephalic, atraumatic Eyes: pupils are equally round, sclera are clear/anicteric Neck is supple with no tracheal deviation Chest/breast - erythema/tenderness/swelling around periareolar area of left breast slightly more medially, incisional site noted - < 1 cm Respiratory: Normal respiratory excursion and pattern. Cardiac: regular rate,normal heart sounds Abdominal exam: benign Extremities: no clubbing, cyanosis or edema. Neuro: non focal Psych: normal mood Assessment IMPRESSION: left breast abscess, probably due to periductal mastitis PLAN: I have discussed the above with the patient. I have explained periductal mastitis to patient and that she needs to stop cigarettes use. I have offered incision and drainage of this left breast abscess. I have explained the procedure to the patient. This will be a large opening that will have to heal by secondary intention and will require daily wound packing changes by the patient - via family member or friend, etc. There WILL be cosmetic deformity. I have counseled the patient as to the risks of the procedure, including but not limited to: infection, bleeding, injury to any blood vessels/nerves, scar tissue, continued wound infections, cosmetic deformity, complications of anesthesia, etc. the patient understands. The patient wishes to proceed. I have answered all questions to the patient s satisfaction and the patient has no further questions. I have confirmed and edited as necessary, the PFSH and ROS obtained by others. . Diagnoses: (N60.42) Periductal mastitis of left breast (primary encounter diagnosis) (N61.1) Breast abscess Return to Clinic: The patient is [facility]. Medical Decision Making: Problems: Low: Acute, uncomplicated illness or injury Risk: Moderate: Decision on minor surgery w/ risk factors Medical Decision Making Level: 3 - Low . Kalpana Ivy MD documented in this encounterMer[facility]07-[facility]22 Miscellaneous Notes* Telephone Encounter - Tyrell Sanchez - 03/09/2022 12:51 PM EDT patient called in stated she has been seeing Dr Weinstein for several months regarding a breast abscess. Stated today breast is purple and would like to know if Dr Weinstein could call in an ATB. Informed patient Dr Silverio was is out on vacation. Offered her an appointment with Dr Ivy on Tue at 120. documented in this encounterMercy [facility]06-11-2022 History of Present illness Narrative* Jacob Weinstein MD - 02/13/2022 6:34 AM EDT FOLLOW UP VISIT NAME: Griselda Concepcion [facility] NO.: [id number] DATE OF SERVICE: February 11, 2022 : 1980 REFERRING PHYSICIAN: Ekta Ley MD Griselda is a patient I am following for cellulitis and was suspected to be an early abscess of the left breast. I initially saw the patient on December 18. At that time I noted: The patient is a 41 year old female with a complaint of left breast swelling and cellulitis. The patient has noticed for the past 3 to 4 days erythema around the nipple area has become more tender. She also noted some milky discharge from the center of the breast. The patient was seen yesterday by Yani Puente. She was started on Keflex for presumed breast cellulitis. The patient was referred to me for rule out breast abscess. 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 Mammogram and ultrasound were ordered but these will be scheduled for January. The patient has had 3 pregnancies. The patient is being seen by me today at the request of Yani Puente found my opinion and advice regarding left breast cellulitis versus abscess. . There appeared to be a smaller subareolar collection and the patient did not wish for me to attemptaspiration at that time. She started on Keflex. He returned 2 days previously noting that she has less pain and slightly less erythema but still feels like there is a subareolar mass. I did attempt aspiration for if I was going to be approximately a 1 x 1 cm abnormality. This returned a very scant amount of pus. This was sent for culture. Overall the patient states she is doing about the same. Preliminary culture demonstrated gram-positive and gram-negative species. The patient was in the office on December 29. There was still was felt to be a undrained collection that was relatively small but still causing her issues. Due to the discomfort and attempting aspiration in the office before she declined this procedure to be done in the office. She was brought to the operating suite on December 30, 2021. A small incision and drainage was performed draining the expectedvolume given the size of the abnormality. The patient notes much less pain in the area and much less erythema when I saw her on January 05. At that time, the site appeared healed with no further drainage the patient then on January 08 noted worsening pain and swelling at the previous incision site. The patient squeezed and was able to express against the purulent material. She notes no further drainage she notes the erythema is resolving. She now notes that the area seems to have a fullness again without erythema or drainage but she realizes this area when she lays on it at night. VITALS: Blood pressure 98/58, pulse 110, temperature 36.4 C (97.5 F), height 172.7 cm (5' 8), weight 91.6 kg (202 lb), last menstrual period 12/07/2021, SpO2 91 %. On examination, there is no significant erythema and no drainage at the site. There is a palpable fullness. There is minimal tenderness at the area. The incision site is healing. Assessment IMPRESSION: Left breast cellulitis/abscess, finally resolving, now palpable mass at site PLAN: If the patient notes any problems or signs of worsening pain or drainage, the patient should contact me immediately. I refilled her prescription of Augmentin. Diagnoses: (N61.1) Breast abscess (primary encounter diagnosis) Return to Clinic: The patient is instructed to follow-up with me in 1 week Jacob Weinsteni MD documented in this encounterMer[facility]05-13-2022 History of Present illness Narrative* Jacob Weinstein MD - 01/15/2022 8:48 AM EDT FOLLOW UP VISIT NAME: Griselda Concepcion [facility] NO.: [id number] DATE OF SERVICE: January 14, 2022 : 1980 REFERRING PHYSICIAN: Ekta Ley MD Griselda is a patient I am following for cellulitis and was suspected to be an early abscess of the left breast. I initially saw the patient on December 18. At that time I noted: The patient is a 41 year old female with a complaint of left breast swelling and cellulitis. The patient has noticed for the past 3 to 4 days erythema around the nipple area has become more tender. She also noted some milky discharge from the center of the breast. The patient was seen yesterday by Yani Puente. She was started on Keflex for presumed breast cellulitis. The patient was referred to me for rule out breast abscess. 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 Mammogram and ultrasound were ordered but these will be scheduled for January. The patient has had 3 pregnancies. The patient is being seen by me today at the request of Yani Puente found my opinion and advice regarding left breast cellulitis versus abscess. . There appeared to be a smaller subareolar collection and the patient did not wish for me to attemptaspiration at that time. She started on Keflex. He returned 2 days previously noting that she has less pain and slightly less erythema but still feels like there is a subareolar mass. I did attempt aspiration for if I was going to be approximately a 1 x 1 cm abnormality. This returned a very scant amount of pus. This was sent for culture. Overall the patient states she is doing about the same. Preliminary culture demonstrated gram-positive and gram-negative species. The patient was in the office on December 29. There was still was felt to be a undrained collection that was relatively small but still causing her issues. Due to the discomfort and attempting aspiration in the office before she declined this procedure to be done in the office. She was brought to the operating suite on December 30, 2021. A small incision and drainage was performed draining the expectedvolume given the size of the abnormality. The patient notes much less pain in the area and much less erythema when I saw her on January 05. At that time, the site appeared healed with no further drainage the patient then on January 08 noted worsening pain and swelling at the previous incision site. The patient squeezed and was able to express against the purulent material. She notes no further drainage she notes the erythema is resolving VITALS: Pulse (!) 126, temperature 36.6 C (97.8 F), weight 92.5 kg (204 lb), last menstrual period 12/07/2021, SpO2 96 %. On examination, there is increased erythema compared to seen at last visit but less than the patient apparently noted a few days ago. There is no fluctuance or induration. There is minimal tendernessat the area. The incision site is healing. Assessment IMPRESSION: Left breast cellulitis/abscess, finally resolving PLAN: If the patient notes any problems or signs of worsening pain or drainage, the patient should contact me immediately. I refilled her prescription of Augmentin and recommend that if the erythema does not resolve in thenext few days or gets worse that she restart it. Otherwise, I would like her to return in a few weeks to assess that the site is completely healed and there is not a chronic fistula Diagnoses: (N61.1) Breast abscess (primary encounter diagnosis) Return to Clinic: The patient is instructed to follow-up with me in 2-3 weeks. Jacob Weinstein MD documented in this encounterMer[facility]05-09-2022 Miscellaneous Notes* Telephone Encounter - Lorri Wright RN - 01/11/2022 10:25 AM EDT Received a request from Griselda to fax medical records related to her left breast abscess, that Dr. Weinstein has been treating her for, to be faxed to [facility]. Records faxed. Fax confirmation sheet received. Lorri Wright RN documented in this encounterMer[facility]05-03-2022 History of Present illness Narrative* Jacob Weinstein MD - 01/05/2022 4:12 PM EDT FOLLOW UP VISIT NAME: Griselda Concepcion [facility] NO.: [id number] DATE OF SERVICE: January 05, 2022 : 1980 REFERRING PHYSICIAN: Ekta Ley MD Griselda is a patient I am following for cellulitis and was suspected to be an early abscess of the left breast. I initially saw the patient on December 18. At that time I noted: The patient is a 41 year old female with a complaint of left breast swelling and cellulitis. The patient has noticed for the past 3 to 4 days erythema around the nipple area has become more tender. She also noted some milky discharge from the center of the breast. The patient was seen yesterday by Yani Puente. She was started on Keflex for presumed breast cellulitis. The patient was referred to me for rule out breast abscess. 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 Mammogram and ultrasound were ordered but these will be scheduled for January. The patient has had 3 pregnancies. The patient is being seen by me today at the request of Yani Puente found my opinion and advice regarding left breast cellulitis versus abscess. . There appeared to be a smaller subareolar collection and the patient did not wish for me to attemptaspiration at that time. She started on Keflex. He returned 2 days previously noting that she has less pain and slightly less erythema but still feels like there is a subareolar mass. I did attempt aspiration for if I was going to be approximately a 1 x 1 cm abnormality. This returned a very scant amount of pus. This was sent for culture. Overall the patient states she is doing about the same. Preliminary culture demonstrated gram-positive and gram-negative species. The patient was in the office on December 29. There was still was felt to be a undrained collection that was relatively small but still causing her issues. Due to the discomfort and attempting aspiration in the office before she declined this procedure to be done in the office. She was brought to the operating suite on December 30, 2021. A small incision and drainage was performed draining the expectedvolume given the size of the abnormality. The patient notes much less pain in the area and much less erythema. VITALS: Blood pressure 96/64, pulse 112, temperature 36.4 C (97.6 F), height 172.7 cm (5' 8), weight 93.9 kg (207 lb), last menstrual period 12/07/2021, SpO2 95 %. On examination, there is decreased erythema and induration. There is minimal tenderness at the area. The incision site is healing. Assessment IMPRESSION: Left breast cellulitis/abscess, finally resolving PLAN: If the patient notes any problems or signs of worsening pain or drainage, the patient should contact me immediately. I would like her to return in a few weeks to assess that the site is completely healed and there is not a chronic fistula Diagnoses: (N61.1) Breast abscess (primary encounter diagnosis) Return to Clinic: The patient is instructed to follow-up with me in 2-3 weeks. Jacob Weinstein MD documented in this encounterMer[facility]05-02-2022 History of Present illness Narrative* Ekta Ley MD - 01/04/2022 4:04 PM EDT Chief Complaint Patient presents with: Pain: open surgical site to leftt breast after surgey HPI Griselda Concepcion is a 41 year old female who presents here today for Above Complaints.. Patient states that she had I&D of left breast abscess on 12/[address] Weinstein in [place] without complications. States that she needs something for pain at the incision site, currently 05/15. Was given rx for 5 mg percocet which she was taking 1 tablet every 2 hours. States that she ran out of it yesterday. Has tried OTC 81 mg ASA and ice PRN which does take the edge off of it. Patient has follow up appointment with Dr. Weinstein tomorrow. Noted on her OARRS she has recently been started on medical marijuana for RSD. Has card with her today. States this has not helped with her pain. Past medical history, appointments, medications, allergies reviewed. Previous Medical History PAST MEDICAL HISTORY Diagnosis Date Abnormal glandular Papanicolaou smear of cervix 02/18/2009 Abn. Pap smear (cervix), f/u with women's health Asthma Brain lesion Dr. 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 : 11/27/2022 Missed Reflex sympathetic dystrophy of other specified site left arm Seasonal allergies Thyroid disease Previous Surgical History PAST SURGICAL HISTORY Procedure Laterality Date EXCISION GANGLION WRIST DORSAL/VOLAR PRIMARY I&D HEMATOMA SEROMA/FLUID COLLECTION 12/30/2021 left breast PAST SURGICAL HISTORY OF LEFT ARM, CYST Removed PAST SURGICAL HISTORY OF LEEP PAST SURGICAL HISTORY OF 04/2012, 2016 left foot surgery TONSILLECTOMY PRIMARY/SECONDARY <AGE 12 Tonsillectomy Family History FAMILY HISTORY Problem Relation Age of Onset Cancer Mother UTERINE Hypertension Mother Lipids Mother Lipids Father other (clot in heart) Father No Known Problems Sister No Known Problems Sister No Known Problems Brother Heart Maternal Grandmother ANGINA Hypertension Maternal Grandmother Diabetes Maternal Grandmother Dementia Maternal Grandmother No Known Problems Maternal Grandfather Hypertension Paternal Grandmother Seizures Daughter Aneurysm Maternal Aunt 2 aunts other (arteriovenous malformation) Maternal Aunt Patient Allergies ALLERGIES Allergen Reactions Erythromycin Base GI Upset Ketorolac Trometham* Rash Naproxen Rash Tramadol GI Upset Current Medications Current Outpatient Medications on File Prior to Visit Medication Sig atorvastatin (LIPITOR) 80 mg tablet Take 1 tablet by mouth daily at bedtime. For cholesterol. albuterol HFA (VENTOLIN HFA) 90 mcg/actuation inhaler Inhale 2 Puffs as instructed every 4 hours asneeded for wheezing/shortness of breath. famotidine (PEPCID) 20 mg tablet Take 1 tablet by mouth twice daily. fluticasone (FLONASE) 50 mcg/actuation nasal spray Use 2 Sprays in each nostril once daily. Rinse mouth after use. cetirizine (ZYRTEC) 10 mg tablet Take 1 tablet by mouth once daily. sertraline (ZOLOFT) 50 mg tablet Take 1 tablet by mouth once daily. folic acid 1 mg tablet Take by mouth. takes 4 tabs once a day pyridoxine HCl, vitamin B6, (VITAMIN B-6 ORAL) Take by mouth. SUMAtriptan (IMITREX) 50 mg tablet levETIRAcetam (KEPPRA) 750 mg tablet Take 1.5 tablets by mouth twice daily. oxyCODONE-acetaminophen (PERCOCET) 5-325 mg tablet Take 1 tablet by mouth four times daily as needed for pain. FOR PAIN. (Patient not taking: Reported on 01/04/2022) No current facility-administered medications on file prior to visit. Social History Social History Tobacco Use Smoking status: Current Every Day Smoker Packs/day: 0.50 Years: 18.00 Pack years: 9.00 Types: Cigarettes Smokeless tobacco: Never Used Tobacco comment: 3 cigarettes a day Vaping Use Vaping Use: Never used Substance Use Topics Alcohol use: No Drug use: No Review of Symptoms REVIEW OF SYSTEMS See HPI EXAM: BP 110/78 Pulse 95 Resp 16 Wt 93.7 kg (206 lb 9.6 oz) LMP 12/07/2021 (Exact Date) SpO2 96% BMI 30.96 kg/m General Appearance: Well appearing, alert, in no acute distress, well-hydrated, well nourished.. Skin: Incision site on left breast healing well without drainage, erythema, swelling, bruising. Health Maintenance List SPIROMETRY due on 11/27/2022 INFLUENZA(Season Ended) due on 05/06/2022 ANNUAL PCP TEAM CHRONIC DISEASE VISIT due on 11/27/2022 PAP TESTING due on 10/26/2024 HPV TESTING due on 10/26/2024 DTAP,TDAP,TD(3 - Td or Tdap) due on 06/16/2030 ONE PNEUMOVAX PRIOR TO AGE 65 Completed HEPATITIS C SCREENING Completed HIV SCREENING Completed COVID-19 VACCINE Completed MENINGOCOCCAL CONJUGATE Aged Out ASSESSMENT/PLAN: 1. Breast pain, left - ICD9: 611.71, ICD10: N64.4 (primary diagnosis) 2/2 abscess s/p I&D. Appears to be healing well without sign of infection today. Discussed use of OTC ibuprofen and ice for pain. 5 days out from I&D pain should be much improved and with hermedical marijuana use, I do not feel comfortable refilling narcotic rx. Will have her keep appointment with surgery tomorrow as scheduled. 2. Breast abscess - ICD9: 611.0, ICD10: N61.1 See above. Ekta Ley MD documented in this encounterMercy [facility]04-26-2022 History of Present illness Narrative* Jacob Weinstein MD - 12/29/2021 7:43 PM EDT HISTORY AND PHYSICAL - BREAST COMPLAINT Griselda Concepcion 1980 REFERRING PHYSICIAN: Yani Puente CHIEF COMPLAINT: Left breast cellulitis HPI: The patient is a 41 year old female with a complaint of left breast swelling and cellulitis. The patient has noticed for the past 3 to 4 days erythema around the nipple area has become more tender. She also noted some milky discharge from the center of the breast. The patient was seen yesterday by Yani Puente. She was started on Keflex for presumed breast cellulitis. The patient was referred to me for rule out breast abscess. 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 Mammogram and ultrasound were ordered but these will be scheduled for January. The patient has had 3 pregnancies. The patient is being seen by me today at the request of Yani Puente found my opinion and advice regarding left breast cellulitis versus abscess. The patient was first seen by me in on April 19, 2020. She was then seen in follow-up on the .I tried ultrasound-guided aspiration of what I thought was going to be approximately an 0.8 x 1 cm collection in the subareolar area which actually seemed a little larger than what I had seen initially. This returned a very minimal amount of scant purulence and the patient noted this was quite uncomfortable. She followed up again on the . There was less redness but ultrasound demonstrated the same sized abnormality. She followed up again on the . At this time I recommended incision and drainage of what I presume to be an abscess and that collection. Due to the amount of discomfort of aspirationthe patient was seen was performed in the operating suite PAST MEDICAL HISTORY Diagnosis Date Abnormal glandular Papanicolaou smear of cervix 02/18/2009 Abn. Pap smear (cervix), f/u with women's health Asthma Brain lesion Dr. 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 GERD (gastroesophageal reflux disease) Herpes simplex virus (HSV) infection Hyperlipidemia Missed Reflex sympathetic dystrophy of other specified site left arm Seasonal allergies Thyroid disease PAST SURGICAL HISTORY Procedure Laterality Date EXCISION GANGLION WRIST DORSAL/VOLAR PRIMARY PAST SURGICAL HISTORY OF LEFT ARM, CYST Removed PAST SURGICAL HISTORY OF LEEP PAST SURGICAL HISTORY OF 04/2012, 2015 left foot surgery TONSILLECTOMY PRIMARY/SECONDARY <AGE 14 Tonsillectomy Current Outpatient Medications Medication Sig Dispense Refill amoxicillin-clavulanic acid (AUGMENTIN) 875-125 mg per tablet Take 1 tablet by mouth twice daily for 10 days. FOR 10 DAYS. 20 tablet 0 atorvastatin (LIPITOR) 80 mg tablet Take 1 tablet by mouth daily at bedtime. For cholesterol. 90 tablet 1 albuterol HFA (VENTOLIN HFA) 90 mcg/actuation inhaler Inhale 2 Puffs as instructed every 4 hours asneeded for wheezing/shortness of breath. 18 g 5 famotidine (PEPCID) 20 mg tablet Take 1 tablet by mouth twice daily. 180 tablet 3 fluticasone (FLONASE) 50 mcg/actuation nasal spray Use 2 Sprays in each nostril once daily. Rinse mouth after use. 1 Each 5 cetirizine (ZYRTEC) 10 mg tablet Take 1 tablet by mouth once daily. 90 tablet 3 sertraline (ZOLOFT) 50 mg tablet Take 1 tablet by mouth once daily. 90 tablet 3 folic acid 1 mg tablet Take by mouth. takes 4 tabs once a day 360 tablet 11 pyridoxine HCl, vitamin B6, (VITAMIN B-6 ORAL) Take by mouth. SUMAtriptan (IMITREX) 50 mg tablet levETIRAcetam (KEPPRA) 750 mg tablet Take 1.5 tablets by mouth twice daily. 0 No current facility-administered medications for this visit. ALLERGIES: Erythromycin Base, Ketorolac Tromethamine, Naproxen, and Tramadol PERSONAL HISTORY: Social History Tobacco Use Smoking status: Current Every Day Smoker Packs/day: 0.50 Years: 18.00 Pack years: 9.00 Types: Cigarettes Smokeless tobacco: Never Used Tobacco comment: 3 cigarettes a day Vaping Use Vaping Use: Never used Substance Use Topics Alcohol use: No Drug use: No FAMILY HISTORY: FAMILY HISTORY Problem Relation Age of Onset Cancer Mother UTERINE Hypertension Mother Lipids Mother Lipids Father other (clot in heart) Father No Known Problems Sister No Known Problems Sister No Known Problems Brother Heart Maternal Grandmother ANGINA Hypertension Maternal Grandmother Diabetes Maternal Grandmother Dementia Maternal Grandmother No Known Problems Maternal Grandfather Hypertension Paternal Grandmother Seizures Daughter Aneurysm Maternal Aunt 2 aunts other (arteriovenous malformation) Maternal Aunt REVIEW OF SYMPTOMS: The review of systems data was entered by the nurse and reviewed by me There are no exam notes on file for this visit. PHYSICAL EXAMINATION: General: The patient is 41 year old female, well nourished, well hydrated in no acute distress. Thepatient is oriented to time, place, and person. VITALS: Blood pressure 106/69, pulse 110, temperature 36.7 C (98 F), height 174 cm (5' 8.5), weight 93 kg (205 lb), last menstrual period 12/07/2021, SpO2 96 %. Body mass index is 30.72 kg/m . HEENT: Normal cephalic, ataumatic, pupils are equally round, sclera are anicteric, mucous membranesare moist, oropharynx is clear. Neck has no masses, asymmetry or lymphadenopathy. Thyroid is unremarkable. Respiratory exam is clear to auscultation Cardiac exam is regular rhythm. Abdominal exam is benign Breast: Visual inspection reveals no retractions, nipple inversion, or skin changes. Palpation of the right breast reveals no dominant or suspicious masses. Palpation of the left breast reveals erythema around the areolar complex for approximately 4 to 5 cm. There is slight firmness without obviousfluctuance just behind the nipple. Axillary exam demonstrates no suspicious masses in either the left or right axilla. There is no nipple discharge expressed from either the left or right breast. LABORATORY VALUES: As Noted RADIOLOGIC STUDIES: As Noted Intraoffice ultrasound demonstrated mostly changes consistent with cellulitis. There was approximately a 0.8 x 1cm pocket to the nipple by 1 cm which may have been an early abscess. Assessment IMPRESSION: Left breast abscess PLAN: I discussed with the patient that at this time I would plan for small incision and expected evacuation of what is probably more necrotic material/thick abscess. The planned surgical procedure was discussed extensively with the patient. The risks, benefits and anticipated outcomes of the procedure, the risks and benefits of the alternatives to the procedure, and the roles and tasks of the personnel to be involved, were discussed with the patient. My staff has also explained the procedure in understandable terms and the patient was given the option to take printed material concerning the planned procedure. The patient had the opportunity to ask questions concerning the planned procedure. The patient freely consents to the planned procedure. Anticipated Surgical Procedure/ CPT Code: left breast incision and drainage of abscess Anticipated Anesthetic: MAC with local Patient weight: Blood pressure 106/69, pulse 110, temperature 36.7 C (98 F), height 174 cm (5' 8.5), weight 93 kg (205 lb), last menstrual period 12/07/2021, SpO2 96 %. BMI: Body mass index is 30.72kg/m . 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 This note will be forwarded to Ekta Ley MD. Return to Clinic: The patient is instructed to follow-up with me post operatively Jacob Weinstein MD documented in this encounter[facility] History of Present illness Narrative* Jacob Weinstein MD - 12/23/2021 10:28 AM EDT FOLLOW UP VISIT NAME: Griselda Concepcion [facility] NO.: [id number] DATE OF SERVICE: 12/22/2021 : 1980 REFERRING PHYSICIAN: Ekta Ley MD Griselda is a patient I am following for cellulitis and was suspected to be an early abscess of the left breast. I initially saw the patient on December 18. At that time I noted: The patient is a 41 year old female with a complaint of left breast swelling and cellulitis. The patient has noticed for the past 3 to 4 days erythema around the nipple area has become more tender. She also noted some milky discharge from the center of the breast. The patient was seen yesterday by Yani Puente. She was started on Keflex for presumed breast cellulitis. The patient was referred to me for rule out breast abscess. 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 Mammogram and ultrasound were ordered but these will be scheduled for January. The patient has had 3 pregnancies. The patient is being seen by me today at the request of Yani Puente found my opinion and advice regarding left breast cellulitis versus abscess. . There appeared to be a smaller subareolar collection and the patient did not wish for me to attemptaspiration at that time. She started on Keflex. He returns today noting that she has less pain and slightly less erythema but still feels like there is a subareolar mass. VITALS: Blood pressure 120/70, pulse 107, temperature 36.4 C (97.6 F), height 174 cm (5' 8.5), weight 93.4 kg (206 lb), last menstrual period 12/07/2021, SpO2 96 %. On examination, there is less erythema but there is more induration and possibly slight fluctuance below the area of the nipple areolar complex. Intraoffice ultrasound demonstrated what appeared to be a larger abscess collection in the subareolar area now approximately 5 x 5 mm in diameter. PROCEDURE: Ultrasound Guided Breast Abscess Aspiration The risks, benefits and anticipated outcomes of the procedure, the risks and benefits of the alternatives to the procedure, and the roles and tasks of the personnel to be involved, were discussed with the patient, and the patient consents to the procedure and agrees to proceed. After explaining the procedure and consent was obtained, Griselda was positioned. The abnormality to be consistent with an abscess in the Left breast was identified by ultrasound. 1% lidocaine half percent Marcaine was injected at the planned needle insertion site. An 18 gauge needle was inserted under ultrasound guidance. A scant amount of pus was aspirated seemingly less than expected.. This fluidwas sent for culture. A bandage was applied to the needle aspiration site. Griselda tolerated the procedure well. Assessment IMPRESSION: Left breast cellulitis/abscess, less pus aspirated than expected PLAN: If the patient notes any problems or signs of worsening pain or drainage, the patient should contact me immediately. Hopefully left pulmonary culture results back by . I have asked to have the patient follow-up my office to reassess the area to see if there is more of a drainable collection and to decide whether to repeat new antibiotics or change to a different prescription Diagnoses: (N61.1) Breast abscess (primary encounter diagnosis) (R73.9) Hyperglycemia Return to Clinic: The patient is instructed to follow-up with me in 2 days. Jacob Weinstein MD documented in this encounterMer[facility]04-15-2022 Miscellaneous Notes* Telephone Encounter - Lorri Wright RN - 12/18/2021 12:33 PM EDT Spoke with Griselda ([phone]) advised that she can take acetaminophen or ibuprofen as needed for pain and warm compresses to the area, just be careful not to burn the skin. Advised that Dr. Barron already left for the weekend, if she feels that she needs something stronger than OTC pain medication, I would suggest reaching out to Yani Puente CNP and see if she would prescribe narcotic medications. Griselda voiced understanding. Lorri Wright RN * Telephone Encounter - Linda Ray - 12/18/2021 11:30 AM EDT Pt called stating she is in a great deal of pain since this morning. She is wondering what she can take for pain. documented in this encounterMer[facility]04-15-2022 History of Present illness Narrative* Jacob Weinstein MD - 12/18/2021 9:43 AM EDT HISTORY AND PHYSICAL - BREAST COMPLAINT Griselda Concepcion 1980 REFERRING PHYSICIAN: Yani Puente CHIEF COMPLAINT: Left breast cellulitis HPI: The patient is a 41 year old female with a complaint of left breast swelling and cellulitis. The patient has noticed for the past 3 to 4 days erythema around the nipple area has become more tender. She also noted some milky discharge from the center of the breast. The patient was seen yesterday by Yani Puente. She was started on Keflex for presumed breast cellulitis. The patient was referred to me for rule out breast abscess. 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 Mammogram and ultrasound were ordered but these will be scheduled for January. The patient has had 3 pregnancies. The patient is being seen by me today at the request of Yani Puente found my opinion and advice regarding left breast cellulitis versus abscess. PAST MEDICAL HISTORY Diagnosis Date Abnormal glandular Papanicolaou smear of cervix 02/18/2009 Abn. Pap smear (cervix), f/u with women's health Asthma Brain lesion Dr. 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 GERD (gastroesophageal reflux disease) Herpes simplex virus (HSV) infection Hyperlipidemia Missed Reflex sympathetic dystrophy of other specified site left arm Seasonal allergies Thyroid disease PAST SURGICAL HISTORY Procedure Laterality Date EXCISION GANGLION WRIST DORSAL/VOLAR PRIMARY PAST SURGICAL HISTORY OF LEFT ARM, CYST Removed PAST SURGICAL HISTORY OF LEEP PAST SURGICAL HISTORY OF 04/2012, 2016 left foot surgery TONSILLECTOMY PRIMARY/SECONDARY <AGE 14 Tonsillectomy Current Outpatient Medications Medication Sig Dispense Refill cephALEXin (KEFLEX) 500 mg capsule Take 1 capsule by mouth four times daily for 10 days. 40 capsule0 atorvastatin (LIPITOR) 80 mg tablet Take 1 tablet by mouth daily at bedtime. For cholesterol. 90 tablet 1 albuterol HFA (VENTOLIN HFA) 90 mcg/actuation inhaler Inhale 2 Puffs as instructed every 4 hours asneeded for wheezing/shortness of breath. 18 g 5 famotidine (PEPCID) 20 mg tablet Take 1 tablet by mouth twice daily. 180 tablet 3 fluticasone (FLONASE) 50 mcg/actuation nasal spray Use 2 Sprays in each nostril once daily. Rinse mouth after use. 1 Each 5 cetirizine (ZYRTEC) 10 mg tablet Take 1 tablet by mouth once daily. 90 tablet 3 sertraline (ZOLOFT) 50 mg tablet Take 1 tablet by mouth once daily. 90 tablet 3 folic acid 1 mg tablet Take by mouth. takes 4 tabs once a day 360 tablet 11 pyridoxine HCl, vitamin B6, (VITAMIN B-6 ORAL) Take by mouth. SUMAtriptan (IMITREX) 50 mg tablet levETIRAcetam (KEPPRA) 750 mg tablet Take 1.5 tablets by mouth twice daily. 0 No current facility-administered medications for this visit. ALLERGIES: Erythromycin Base, Ketorolac Tromethamine, Naproxen, and Tramadol PERSONAL HISTORY: Social History Tobacco Use Smoking status: Current Every Day Smoker Packs/day: 0.50 Years: 18.00 Pack years: 9.00 Types: Cigarettes Smokeless tobacco: Never Used Tobacco comment: 3 cigarettes a day Vaping Use Vaping Use: Never used Substance Use Topics Alcohol use: No Drug use: No FAMILY HISTORY: FAMILY HISTORY Problem Relation Age of Onset Cancer Mother UTERINE Hypertension Mother Lipids Mother Lipids Father other (clot in heart) Father No Known Problems Sister No Known Problems Sister No Known Problems Brother Heart Maternal Grandmother ANGINA Hypertension Maternal Grandmother Diabetes Maternal Grandmother Dementia Maternal Grandmother No Known Problems Maternal Grandfather Hypertension Paternal Grandmother Seizures Daughter Aneurysm Maternal Aunt 2 aunts other (arteriovenous malformation) Maternal Aunt REVIEW OF SYMPTOMS: The review of systems data was entered by the nurse and reviewed by me There are no exam notes on file for this visit. PHYSICAL EXAMINATION: General: The patient is 41 year old female, well nourished, well hydrated in no acute distress. Thepatient is oriented to time, place, and person. VITALS: Blood pressure 110/60, pulse 110, temperature 36.3 C (97.3 F), temperature source Temporal,resp. rate 14, height 174 cm (5' 8.5), weight 93 kg (205 lb), last menstrual period 12/07/2021, SpO2 99 %. Body mass index is 30.72 kg/m . HEENT: Normal cephalic, ataumatic, pupils are equally round, sclera are anicteric, mucous membranesare moist, oropharynx is clear. Neck has no masses, asymmetry or lymphadenopathy. Thyroid is unremarkable. Breast: Visual inspection reveals no retractions, nipple inversion, or skin changes. Palpation of the right breast reveals no dominant or suspicious masses. Palpation of the left breast reveals erythema around the areolar complex for approximately 4 to 5 cm. There is slight firmness without obviousfluctuance just behind the nipple. Axillary exam demonstrates no suspicious masses in either the left or right axilla. There is no nipple discharge expressed from either the left or right breast. LABORATORY VALUES: As Noted RADIOLOGIC STUDIES: As Noted Intraoffice ultrasound demonstrated mostly changes consistent with cellulitis. There was approximately a 4 x 4 millimeter pocket deep to the nipple by 1 cm which may have been an early abscess. Assessment IMPRESSION: Left breast cellulitis versus abscess PLAN: I discussed with the patient that this was small enough collection that at this point we could attempt aspiration or give antibiotics a few days to see if this improves her overall cellulitis. She did not wish to attempt aspiration today. The patient is to follow-up this coming Tuesday for repeat evaluation if this collection is the same or larger or her cellulitis not improved then we willplan for attempted aspiration at that time. Diagnoses: (N61.0) Cellulitis of left breast (primary encounter diagnosis) My findings have been communicated to Yani Puente via shared medical record. This note will be forwarded to Ekta Ley MD. Return to Clinic: The patient is instructed to follow-up with me in 4 days. Jacob Weinstein MD documented in this encounterMer[facility]04-14-2022 Instructions* Patient Instructions* Yani Puente APRN.CNP - 12/17/2021 1:45 PM EDT Ppt with Dr Weinstein tomorrow at 8:20. documented in this encounterMer[facility]04-14-2022 History of Present illness Narrative* Yani Puente APRN.CNP - 12/17/2021 1:22 PM EDT Griselda Concepcion is a 41 year old female who presents for problem visit painful lump in left breast. HPI: Pt evaluated yesterday for breast pain and lump in left breast. Pain, size of lump and rednesshas increased since yesterday. Is unable to have diagnostic imaging until the end of January do would like it evaluated again. No fever/chills. Is not . No personal history of breast cancer or disease. Paternal aunt with breast cancer. 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 Pap smear (cervix), f/u with women's health Asthma Brain lesion Dr. 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 GERD (gastroesophageal reflux disease) Herpes simplex virus (HSV) infection Hyperlipidemia Missed Reflex sympathetic dystrophy of other specified site left arm Seasonal allergies Thyroid disease PAST SURGICAL HISTORY Procedure Laterality Date EXCISION GANGLION WRIST DORSAL/VOLAR PRIMARY PAST SURGICAL HISTORY OF LEFT ARM, CYST Removed PAST SURGICAL HISTORY OF LEEP PAST SURGICAL HISTORY OF 04/2012, 2016 left foot surgery TONSILLECTOMY PRIMARY/SECONDARY <AGE 14 Tonsillectomy FAMILY HISTORY Problem Relation Age of Onset Cancer Mother UTERINE Hypertension Mother Lipids Mother Lipids Father other (clot in heart) Father No Known Problems Sister No Known Problems Sister No Known Problems Brother Heart Maternal Grandmother ANGINA Hypertension Maternal Grandmother Diabetes Maternal Grandmother Dementia Maternal Grandmother Hypertension Paternal Grandmother No Known Problems Maternal Grandfather Aneurysm Maternal Aunt 2 aunts other (arteriovenous malformation) Maternal Aunt Seizures Daughter Social History Tobacco Use Smoking status: Current Every Day Smoker Packs/day: 0.50 Years: 18.00 Pack years: 9.00 Types: Cigarettes Smokeless tobacco: Never Used Tobacco comment: 3 cigarettes a day Vaping Use Vaping Use: Never used Substance Use Topics Alcohol use: No Drug use: No Current Outpatient Medications Medication Sig atorvastatin (LIPITOR) 80 mg tablet Take 1 tablet by mouth daily at bedtime. For cholesterol. albuterol HFA (VENTOLIN HFA) 90 mcg/actuation inhaler Inhale 2 Puffs as instructed every 4 hours asneeded for wheezing/shortness of breath. famotidine (PEPCID) 20 mg tablet Take 1 tablet by mouth twice daily. fluticasone (FLONASE) 50 mcg/actuation nasal spray Use 2 Sprays in each nostril once daily. Rinse mouth after use. cetirizine (ZYRTEC) 10 mg tablet Take 1 tablet by mouth once daily. sertraline (ZOLOFT) 50 mg tablet Take 1 tablet by mouth once daily. folic acid 1 mg tablet Take by mouth. takes 4 tabs once a day pyridoxine HCl, vitamin B6, (VITAMIN B-6 ORAL) Take by mouth. SUMAtriptan (IMITREX) 50 mg tablet levETIRAcetam (KEPPRA) 750 mg tablet Take 1.5 tablets by mouth twice daily. No current facility-administered medications for this visit. Allergies As of Date: 12/17/2021 Allergen Noted Reaction ERYTHROMYCIN BASE 01/16/2003 GI Upset KETOROLAC TROMETHAMINE 11/12/2017 Rash NAPROXEN 11/12/2017 Rash TRAMADOL 02/15/2017 GI Upset Fully Assessed 12/17/2021 REVIEW OF SYSTEMS Breast: No breast lumps, nipple d/c, overlying skin changes, redness or skin retraction and see HPI. Allergies and current medication updated:Yes EXAM: BP 102/60 Wt 204 lb 6.4 oz (92.7kg) LMP 12/07/2021 GENERAL: pleasant, female in no apparent distress NECK: Supple, full range of motion and no adenopathy BREAST: right beast soft, non-tender, symmetric, no dominant mass, normal nipple-areolar complex, no lymphadenopathy, no nipple discharge. Left breast with 4-5 cm dominant tender breast abscess located behind nipple. Skin is erythematous. CHEST: Normal inspiratory effort NEURO: alert and oriented x3,exam grossly non-focal ASSESSMENT/PLAN: 1. Abscess of breast, left - ICD9: 611.0, ICD10: N61.1 - CEPHALEXIN 500 MG CAPSULE - CONSULT TO GENERAL SURGERY - appointment tomorrow at 8:20 am. Follow-up as needed. Yani Puente APRN.CNP I spent a total of 25 minutes on the date of the service which included preparing to see the patient, [id number] patient care, completing clinical documentation, obtaining and/or reviewing separately obtained history, performing a medically appropriate examination, counseling and educating the pat ient/family/caregiver, ordering medications, tests, or procedures and communicating with other HCPs(not separately reported). documented in this encounterMercy [facility]04-14-2022 Miscellaneous Notes* Telephone Encounter - Rose Berumen LPN - 12/17/2021 9:04 AM EDT Pt was seen by CP yesterday for left breast pain. Pt's mother, Flora Concepcion called and stated that the pain has greatly increased and the area is now showing increased warmth and redness. Mother is unsure if pt is febrile. Appt. Given for 1:30 this afternoon. She has an appointment for a dx mammogram on 01/26/22, if this is still needed the pt would like to see if she can be seen sooner at [facility].Rose Berumen LPN ' documented in this encounterMercy [facility]04-13-2022 History of Present illness Narrative* Lina Kenny APRN.CNM - 12/16/2021 8:43 AM EDT BREAST LUMP HISTORY: This is a 41 year old female Presents with mastalgia left Tenderness Yes, since yesterday Change in sizeNo Any history breast mass No Caffeine use No Last mammogramn/a normal Any previous breast surgery No Any family history breast disease/ breast cancer No OB History T1 L1 SAB2 IAB0 Ectopic0 Multiple0 Live Births1 PAST MEDICAL HISTORY Diagnosis Date Abnormal glandular Papanicolaou smear of cervix 02/18/2009 Abn. Pap smear (cervix), f/u with women's health Asthma Brain lesion Dr. 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 GERD (gastroesophageal reflux disease) Herpes simplex virus (HSV) infection Hyperlipidemia Missed Reflex sympathetic dystrophy of other specified site left arm Seasonal allergies Thyroid disease PAST SURGICAL HISTORY Procedure Laterality Date EXCISION GANGLION WRIST DORSAL/VOLAR PRIMARY PAST SURGICAL HISTORY OF LEFT ARM, CYST Removed PAST SURGICAL HISTORY OF LEEP PAST SURGICAL HISTORY OF 04/2012, 2015 left foot surgery TONSILLECTOMY PRIMARY/SECONDARY <AGE 14 Tonsillectomy FAMILY HISTORY Problem Relation Age of Onset Cancer Mother UTERINE Hypertension Mother Lipids Mother Lipids Father other (clot in heart) Father No Known Problems Sister No Known Problems Sister No Known Problems Brother Heart Maternal Grandmother ANGINA Hypertension Maternal Grandmother Diabetes Maternal Grandmother Dementia Maternal Grandmother Hypertension Paternal Grandmother No Known Problems Maternal Grandfather Aneurysm Maternal Aunt 2 aunts other (arteriovenous malformation) Maternal Aunt Seizures Daughter SOCIAL HISTORY Social History Tobacco Use Smoking status: Current Every Day Smoker Packs/day: 0.50 Years: 18.00 Pack years: 9.00 Types: Cigarettes Smokeless tobacco: Never Used Tobacco comment: 3 cigarettes a day Vaping Use Vaping Use: Never used Substance Use Topics Alcohol use: No Drug use: No PAST SURGICAL HISTORY Procedure Laterality Date EXCISION GANGLION WRIST DORSAL/VOLAR PRIMARY PAST SURGICAL HISTORY OF LEFT ARM, CYST Removed PAST SURGICAL HISTORY OF LEEP PAST SURGICAL HISTORY OF 04/2012, 2015 left foot surgery TONSILLECTOMY PRIMARY/SECONDARY <AGE 14 Tonsillectomy Current Outpatient Medications Medication Sig atorvastatin (LIPITOR) 80 mg tablet Take 1 tablet by mouth daily at bedtime. For cholesterol. albuterol HFA (VENTOLIN HFA) 90 mcg/actuation inhaler Inhale 2 Puffs as instructed every 4 hours asneeded for wheezing/shortness of breath. famotidine (PEPCID) 20 mg tablet Take 1 tablet by mouth twice daily. fluticasone (FLONASE) 50 mcg/actuation nasal spray Use 2 Sprays in each nostril once daily. Rinse mouth after use. cetirizine (ZYRTEC) 10 mg tablet Take 1 tablet by mouth once daily. sertraline (ZOLOFT) 50 mg tablet Take 1 tablet by mouth once daily. folic acid 1 mg tablet Take by mouth. takes 4 tabs once a day pyridoxine HCl, vitamin B6, (VITAMIN B-6 ORAL) Take by mouth. SUMAtriptan (IMITREX) 50 mg tablet levETIRAcetam (KEPPRA) 750 mg tablet Take 1.5 tablets by mouth twice daily. No current facility-administered medications for this visit. Allergies As of Date: 12/16/2021 Allergen Noted Reaction ERYTHROMYCIN BASE 01/16/2003 GI Upset KETOROLAC TROMETHAMINE 11/12/2017 Rash NAPROXEN 11/12/2017 Rash TRAMADOL 02/15/2017 GI Upset Fully Assessed 12/16/2021 EXAMINATION: There is no concerning cervical, supraclavicular, or axillary lymphadenopathy. She has no fibrocystic changes. On the right are no dominant masses, skin changes or nipple discharge. On the left thereis 4 cm area that is hardened behind the nipple. No current discharge or bleeding. IMPRESSION: left breast mass. PLAN: Office Visit on 12/16/21 [facility] BILAT US BREAST LTD LT A discussion was held with the patient and patient who agrees with plan of care. Will notify patient of results. Lina Kenny APRN.CNM documented in this encounterMer[facility] Miscellaneous Notes* Telephone Encounter - Danette Moreno RN - 12/09/2021 5:39 PM EDT Spoke with patient. Given message from provider's office. Patient verbalizes understanding. Danette Moreno RN * Telephone Encounter - Nancy Mercedes Ma - 12/09/2021 12:08 PM EDT Left message for patient to call office back Nancy Mercedes Ma * Telephone Encounter - Ekta Ley MD - 12/09/2021 8:08 AM EDT Normal thyroid studies. Cholesterol is very high. Recommend increasing her to high intensity statin Lipitor 80 mg daily to lower cholesterol and risk of heart attack and stroke. Will send to local pharmacy and recheck labs in 3 months. Call with side effects, most common being muscle aches. Protein levels are low which is sign of malnutrition. Recommend increasing protein intake and lowering carb intake since her sugar was mildly elevated. Will recheck with repeat labs in 3 months. documented in this encounterMer[facility]03-28-2022 History of Present illness Narrative* Darlyn Rockwell RDMS - 11/30/2021 2:30 PM EDT Radiology Service Progress Note PATIENT NAME: Griselda Concepcion DATE OF SERVICE: November 30, 2021 TIME: 2:11 PM PATIENT IDENTITY VERIFICATION COMPLETED USING TWO (2) IDENTIFIERS: Name and Date of confirmedby patient verbally. FALL SCREENING: Has the patient had 2 falls in the last year or 1 fall with injury or currently using an Ambulatory Assistive Device (Walker, Cane, Wheelchair, Crutches, etc.)? No PATIENT GENDER DATA: Female. status: : No status: N/A PATIENT RELEVANT IMPLANT DATA REVIEWED: Not Applicable RADIOLOGY DEPARTMENT: Ultrasound PERIPHERAL IV DATA: Not applicable SIGNED BY: Darlyn Rockwell RDMS RVT November 30, 2021 2:11 PM documented in this encounterMercy [facility]03-25-2022 History of Present illness Narrative* Ekta Ley MD - 11/27/2021 10:19 AM EDT Chief Complaint Patient presents with: Physical: med refills HPI Griselda Concepcion is a 41 year old female who presents here today for Above Complaints. [facility] or [facility] visits. On Pepcid BID for GERD. Well controlled on current regimen. Heartburn reoccurs if she misses a day. Patient following up with neurology every 6 months for history of seizures. On Keppra as prescribedwithout side effects. Last seizure more than 10 years ago. Depression symptoms well controlled on Zoloft. PHQ-2 / Depression screen He in the past two weeks denies having felt down, depressed, hopeless or with little interest or pleasure in doing things. Asthma controlled on albuterol. Using less than monthly for cough, wheeze or SOB. Smoking less than 1/2 pack per day. Not ready to quit smoking at this time. Would like to work on it on her own. Due for COVID booster today. No complications with first 2 shots. Would like to get today. Up to date on cancer screening. Past medical history, appointments, medications, allergies reviewed. Previous Medical History PAST MEDICAL HISTORY Diagnosis Date Abnormal glandular Papanicolaou smear of cervix 02/18/2009 Abn. Pap smear (cervix), f/u with [facility] Asthma Brain lesion Dr. 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 GERD (gastroesophageal reflux disease) Herpes simplex virus (HSV) infection Hyperlipidemia Missed Overweight (BMI 25.0-29.9) Reflex sympathetic dystrophy of other specified site left arm Seasonal allergies Thyroid disease Previous Surgical History PAST SURGICAL HISTORY Procedure Laterality Date EXCISION GANGLION WRIST DORSAL/VOLAR PRIMARY PAST SURGICAL HISTORY OF LEFT ARM, CYST Removed PAST SURGICAL HISTORY OF LEEP PAST SURGICAL HISTORY OF 04/2012, 2016 left foot surgery TONSILLECTOMY PRIMARY/SECONDARY <AGE 14 Tonsillectomy Family History FAMILY HISTORY Problem Relation Age of Onset Cancer Mother UTERINE Hypertension Mother Lipids Mother Lipids Father other (clot in heart) Father No Known Problems Sister No Known Problems Sister No Known Problems Brother Heart Maternal Grandmother ANGINA Hypertension Maternal Grandmother Diabetes Maternal Grandmother Dementia Maternal Grandmother Hypertension Paternal Grandmother No Known Problems Maternal Grandfather Aneurysm Maternal Aunt 2 aunts other (arteriovenous malformation) Maternal Aunt Seizures Daughter Patient Allergies ALLERGIES Allergen Reactions Erythromycin Base GI Upset Ketorolac Trometham* Rash Naproxen Rash Tramadol GI Upset Current Medications Current Outpatient Medications on File Prior to Visit Medication Sig albuterol HFA (VENTOLIN HFA) 90 mcg/actuation inhaler Inhale 2 Puffs as instructed every 4 hours asneeded for wheezing/shortness of breath. famotidine (PEPCID) 20 mg tablet Take 1 tablet by mouth twice daily. folic acid 1 mg tablet Take by mouth. takes 4 tabs once a day fluticasone (FLONASE) 50 mcg/actuation nasal spray Use 2 Sprays in each nostril once daily. Rinse mouth after use. pyridoxine HCl, vitamin B6, (VITAMIN B-6 ORAL) Take by mouth. SUMAtriptan (IMITREX) 50 mg tablet cetirizine (ZYRTEC) 10 mg tablet Take 1 tablet by mouth once daily. levETIRAcetam (KEPPRA) 750 mg tablet Take 1.5 tablets by mouth twice daily. sertraline (ZOLOFT) 50 mg tablet Take 1 tablet by mouth once daily. No current facility-administered medications on file prior to visit. Social History Social History Tobacco Use Smoking status: Current Every Day Smoker Years: 18.00 Types: Cigarettes Smokeless tobacco: Never Used Tobacco comment: 3 cigarettes a day Vaping Use Vaping Use: Never used Substance Use Topics Alcohol use: No Drug use: No Review of Symptoms REVIEW OF SYSTEMS GENERAL: No weight loss, malaise or fevers HEENT: Negative for frequent or significant headaches, No changes in hearing or vision, no nose bleeds or other nasal problems NECK: Negative for lumps, goiter, pain and significant neck swelling RESPIRATORY: Negative for cough, hemoptysis, wheezing, COPD, dyspnea or shortness of breath CARDIOVASCULAR: Negative for chest pain, leg swelling, hypertension, CHF or palpitations GI: No nausea, vomiting, or diarrhea : No history of dysuria, frequency or incontinence 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 Skin: Skin color, texture, turgor normal, no suspicious rashes or lesions. Head: Normocephalic, no masses, lesions, tenderness or abnormalities. Eyes: Anicteric sclera. Pupils are equally round and reactive to light. Extraocular movements are intact. . Ears: External ears normal, canals clear. Neck: Positive findings: thyroid: enlarged and non tender. No nodules. . Lungs: Lungs clear to auscultation. No wheezing, rhonchi, rales.. Heart: RRR without murmur, gallop, or rubs. No ectopy. Abdomen: Normal abdominal exam, Abdomen soft, non-tender. Bowel sounds normal. No masses, organomegaly. Extremities: No deformities, edema, skin discoloration, clubbing or cyanosis. Good capillary refill. . Health Maintenance List SPIROMETRY Never done INFLUENZA(1) due on 05/06/2021 COVID-19 VACCINE(3 - Booster for Pfizer series) due on 10/15/2021 ANNUAL PCP TEAM CHRONIC DISEASE VISIT due on 11/27/2022 PAP TESTING due on 10/26/2024 HPV TESTING due on 10/26/2024 DTAP,TDAP,TD(3 - Td or Tdap) due on 06/16/2030 ONE PNEUMOVAX PRIOR TO AGE 65 Completed HEPATITIS C SCREENING Completed HIV SCREENING Completed MENINGOCOCCAL CONJUGATE Aged Out Data reviewed Component Latest Ref Rng & Units 11/12/2020 Protein, Total 6.3 - 8.0 g/dL 6.5 Albumin 3.9 - 4.9 g/dL 3.4 (L) Calcium 8.5 - 10.2 mg/dL 9.1 Bilirubin, Total 0.2 - 1.3 mg/dL <0.2 (L) Alkaline Phosphatase 34 - 123 U/L 91 AST 13 - 35 U/L 15 Glucose 74 - 99 mg/dL 95 BUN 7 - 21 mg/dL 8 Creatinine 0.58 - 0.96 mg/dL 0.78 Sodium 136 - 144 mmol/L 137 Potassium 3.7 - 5.1 mmol/L 3.9 Chloride 97 - 105 mmol/L 104 CO2 22 - 30 mmol/L 25 Anion Gap 9 - 18 mmol/L 8 (L) ALT 7 - 38 U/L 9 eGFR- >60 eGFR-All Other Races . >60 Total Cholesterol, Nonfasting <200 mg/dL 248 (H) Triglycerides, Nonfasting <150 mg/dL 183 (H) HDL Cholesterol, Nonfasting >39 mg/dL 39 (L) LDL Cholesterol, Nonfasting <100 mg/dL 172 (H) Non HDL Cholesterol, Nonfasting <130 mg/dL 209 (H) VLDL Cholesterol, Nonfasting <30 mg/dL 37 (H) Total Chol/HDL Ratio, Nonfasting <5.10 mg/dL 6.36 (H) LDL/HDL Ratio, Nonfasting <2.54 mg/dL 4.41 (H) Hep C Antibody IA Negative Negative ASSESSMENT/PLAN: 1. Annual physical exam - ICD9: V70.0, ICD10: Z00.00 (primary diagnosis) - Counseled on healthy diet and regular exercise - Calcium intake with supplements or by diet of 1000 mg/day for under 50, 1200- 1500 mg/day for 50+ - Discussed need and benefit for weight loss. BMI 30.28 kg/(m^2) - Smoking cessation encouraged; discussed risks to health and quitting strategies. Patient is not ready to quit - Follow up for annual exam in one year - CBC - COMP METABOLIC PANEL 2. Mild intermittent asthma without complication - ICD9: 493.90, ICD10: J45.20 Mild intermittent Asthma stable - Continue current meds - Avoidance of triggers recommended - ALBUTEROL SULFATE HFA 90 MCG/ACTUATION AEROSOL INHALER 3. Gastroesophageal reflux disease with esophagitis without hemorrhage - ICD9: 530.81, 530.10, ICD10: K21.00 - Continue treatment with Pepcid 20 mg BID - FAMOTIDINE 20 MG TABLET 4. Mixed hyperlipidemia - ICD9: 272.2, ICD10: E78.2 - to be determined upon return of lab results - Encouraged following a low fat, low cholesterol diet. - Discussed the benefits of regular aerobic exercise and weight loss. - LIPID PANEL, NONFASTING 5. Recurrent major depressive disorder, remission status unspecified (HCC) - ICD9: 296.30, ICD10: F33.9 Controlled on Zoloft 6. History of seizures - ICD9: V12.49, ICD10: Z87.898 Controlled on Keppra. F/u with counseling. - FLUTICASONE PROPIONATE 50 MCG/ACTUATION NASAL SPRAY,SUSPENSION - CETIRIZINE 10 MG TABLET 7. Tobacco use - ICD9: 305.1, ICD10: Z72.0 - Cessation encouraged. - Physiologic and physical aspects of tobacco addiction as well as strategies for quitting were discussed. - Counseling was given focusing on the harmful effects of this addiction especially given the patient's medical condition(s) which will be worsened because of the chemicals in tobacco. 8. Need for COVID-19 vaccine - ICD9: V04.89, ICD10: Z23 - PFIZER-BIONTECH COVID-19 VACCINE, AGE 12+ YR (DÍAZ TOP) 9. Enlarged thyroid - ICD9: 240.9, ICD10: E04.9 Check. - TSH BLD - T4 FREE/FREE THYROX - THYROID PEROXIDASE ANTIBODY BLOOD - US THYROID/PARATHYROID Ekta Ley MD documented in this encounterMer[facility]05-09-2019 History of Past illness Narrative* Problem Noted Date Resolved Date History of asthma 01/11/2019 11/27/2021 Overview: 01/11/2019 Pt has a history of asthma. She uses an inhaler PRN. TKRN Tobacco use in , antepartum 01/11/2019 11/27/2021 Overview: 01/11/2019Pt smokes 3 cigarettes a day, down from 1 ppd. a day. Discussed risks of smoking during . Advised pt to quit. TKRN History of depression 01/11/2019 11/27/2021 Overview: 01/11/2019Pt has a history of depression diagnosed in [address] Moya. She denies any depression. She denies ever having suicidal thoughts. Discussed increased risks of depression during and and importance of reporting the development or worsening of symptoms should they occur. Pt has a history of Herpes. Discussed with pt. importance of reporting any outbreaks during should they occur. TKRN Patient request for diagnostic testing 9 11/27/2021 Overview: 01/11/2019 Patient desires nuchal ultrasound. TKRN Acute bilateral low back pain without sciatica 0 05/30/2018 11/27/2021 Hemangioma 02/15/2013 04/09/2015 Benign neoplasm of skin of trunk, except scrotum 02/07/2013 04/09/2015 Chronic, continuous use of opioids 10/17/2012 04/09/2015 Chronic pain 10/17/2012 04/09/2015 Left foot pain 10/17/2012 04/09/2015 Lumbar strain 05/17/2012 04/09/2015 Overview: Per ER report at [facility] 05/06/12-Naproxen. Skin lesion 01/19/2012 04/09/2015 Porokeratosis 06/04/2011 04/09/2015 Supervision of normal first 05/25/2011 05/25/2011 Supervision of other high-risk (V23.89) 05/25/2011 12/20/2012 Papanicolaou smear of cervix with atypical squamous cells of undetermined significance (ASC-US) 08/14/2008 04/09/2015 Cervical high risk human pap illomavirus (HPV) DNA test positive 08/14/2008 04/09/2015 Obesity, unspecified 04/20/2007 04/09/2015 documented as of this encounter (statuses as of 11/27/2021) [facility] History of Past illness Narrative* Problem Noted Date Resolved Date History of asthma 01/11/2019 11/27/2021 Overview: 01/11/2019 Pt has a history of asthma. She uses an inhaler PRN. TKRN Tobacco use in , antepartum 01/11/2019 11/27/2021 Overview: 01/11/2019Pt smokes 3 cigarettes a day, down from 1 ppd. a day. Discussed risks of smoking during . Advised pt to quit. TKRN History of depression 01/11/2019 11/27/2021 Overview: 01/11/2019Pt has a history of depression diagnosed in [address] Moya. She denies any depression. She denies ever having suicidal thoughts. Discussed increased risks of depression during and and importance of reporting the development or worsening of symptoms should they occur. Pt has a history of Herpes. Discussed with pt. importance of reporting any outbreaks during should they occur. TKRN Patient request for diagnostic testing 9 11/27/2021 Overview: 01/11/2019 Patient desires nuchal ultrasound. TKRN Acute bilateral low back pain without sciatica 0 05/30/2018 11/27/2021 Hemangioma 02/15/2013 04/09/2015 Benign neoplasm of skin of trunk, except scrotum 02/07/2013 04/09/2015 Chronic, continuous use of opioids 10/17/2012 04/09/2015 Chronic pain 10/17/2012 04/09/2015 Left foot pain 10/17/2012 04/09/2015 Lumbar strain 05/17/2012 04/09/2015 Overview: Per ER report at [facility] 05/06/12-Naproxen. Skin lesion 01/19/2012 04/09/2015 Porokeratosis 06/04/2011 04/09/2015 Supervision of normal first 05/25/2011 05/25/2011 Supervision of other high-risk (V23.89) 05/25/2011 12/20/2012 Papanicolaou smear of cervix with atypical squamous cells of undetermined significance (ASC-US) 08/14/2008 04/09/2015 Cervical high risk human pap illomavirus (HPV) DNA test positive 08/14/2008 04/09/2015 Obesity, unspecified 04/20/2007 04/09/2015 documented as of this encounter (statuses as of 12/01/2021) [facility] of Past illness Narrative* Problem Noted Date Resolved Date History of asthma 01/11/2019 11/27/2021 Overview: 01/11/2019 Pt has a history of asthma. She uses an inhaler PRN. TKRN Tobacco use in , antepartum 01/11/2019 11/27/2021 Overview: 01/11/2019Pt smokes 3 cigarettes a day, down from 1 ppd. a day. Discussed risks of smoking during . Advised pt to quit. TKRN History of depression 01/11/2019 11/27/2021 Overview: 01/11/2019Pt has a history of depression diagnosed in [address] Moya. She denies any depression. She denies ever having suicidal thoughts. Discussed increased risks of depression during and and importance of reporting the development or worsening of symptoms should they occur. Pt has a history of Herpes. Discussed with pt. importance of reporting any outbreaks during should they occur. TKRN Patient request for diagnostic testing 9 11/27/2021 Overview: 01/11/2019 Patient desires nuchal ultrasound. TKRN Acute bilateral low back pain without sciatica 0 05/30/2018 11/27/2021 Hemangioma 02/15/2013 04/09/2015 Benign neoplasm of skin of trunk, except scrotum 02/07/2013 04/09/2015 Chronic, continuous use of opioids 10/17/2012 04/09/2015 Chronic pain 10/17/2012 04/09/2015 Left foot pain 10/17/2012 04/09/2015 Lumbar strain 05/17/2012 04/09/2015 Overview: Per ER report at [facility] 05/06/12-Naproxen. Skin lesion 01/19/2012 04/09/2015 Porokeratosis 06/04/2011 04/09/2015 Supervision of normal first 05/25/2011 05/25/2011 Supervision of other high-risk (V23.89) 05/25/2011 12/20/2012 Papanicolaou smear of cervix with atypical squamous cells of undetermined significance (ASC-US) 08/14/2008 04/09/2015 Cervical high risk human pap illomavirus (HPV) DNA test positive 08/14/2008 04/09/2015 Obesity, unspecified 04/20/2007 04/09/2015 documented as of this encounter (statuses as of 12/09/2021) [facility] of Past illness Narrative* Problem Noted Date Resolved Date History of asthma 01/11/2019 11/27/2021 Overview: 01/11/2019 Pt has a history of asthma. She uses an inhaler PRN. TKRN Tobacco use in , antepartum 01/11/2019 11/27/2021 Overview: 01/11/2019Pt smokes 3 cigarettes a day, down from 1 ppd. a day. Discussed risks of smoking during . Advised pt to quit. TKRN History of depression 01/11/2019 11/27/2021 Overview: 01/11/2019Pt has a history of depression diagnosed in [address] Moya. She denies any depression. She denies ever having suicidal thoughts. Discussed increased risks of depression during and and importance of reporting the development or worsening of symptoms should they occur. Pt has a history of Herpes. Discussed with pt. importance of reporting any outbreaks during should they occur. TKRN Patient request for diagnostic testing 9 11/27/2021 Overview: 01/11/2019 Patient desires nuchal ultrasound. TKRN Acute bilateral low back pain without sciatica 0 05/30/2018 11/27/2021 Hemangioma 02/15/2013 04/09/2015 Benign neoplasm of skin of trunk, except scrotum 02/07/2013 04/09/2015 Chronic, continuous use of opioids 10/17/2012 04/09/2015 Chronic pain 10/17/2012 04/09/2015 Left foot pain 10/17/2012 04/09/2015 Lumbar strain 05/17/2012 04/09/2015 Overview: Per ER report at [facility] 05/06/12-Naproxen. Skin lesion 01/19/2012 04/09/2015 Porokeratosis 06/04/2011 04/09/2015 Supervision of normal first 05/25/2011 05/25/2011 Supervision of other high-risk (V23.89) 05/25/2011 12/20/2012 Papanicolaou smear of cervix with atypical squamous cells of undetermined significance (ASC-US) 08/14/2008 04/09/2015 Cervical high risk human pap illomavirus (HPV) DNA test positive 08/14/2008 04/09/2015 Obesity, unspecified 04/20/2007 04/09/2015 documented as of this encounter (statuses as of 12/16/2021) [facility] of [facility] illness Narrative* Problem Noted Date Resolved Date History of asthma 01/11/2019 11/27/2021 Overview: 01/11/2019 Pt has a history of asthma. She uses an inhaler PRN. TKRN Tobacco use in , antepartum 01/11/2019 11/27/2021 Overview: 01/11/2019Pt smokes 3 cigarettes a day, down from 1 ppd. a day. Discussed risks of smoking during . Advised pt to quit. TKRN History of depression 01/11/2019 11/27/2021 Overview: 01/11/2019Pt has a history of depression diagnosed in [address] Moya. She denies any depression. She denies ever having suicidal thoughts. Discussed increased risks of depression during and and importance of reporting the development or worsening of symptoms should they occur. Pt has a history of Herpes. Discussed with pt. importance of reporting any outbreaks during should they occur. TKRN Patient request for diagnostic testing 9 11/27/2021 Overview: 01/11/2019 Patient desires nuchal ultrasound. TKRN Acute bilateral low back pain without sciatica 0 05/30/2018 11/27/2021 Hemangioma 02/15/2013 04/09/2015 Benign neoplasm of skin of trunk, except scrotum 02/07/2013 04/09/2015 Chronic, continuous use of opioids 10/17/2012 04/09/2015 Chronic pain 10/17/2012 04/09/2015 Left foot pain 10/17/2012 04/09/2015 Lumbar strain 05/17/2012 04/09/2015 Overview: Per ER report at [facility] 05/06/12-Naproxen. Skin lesion 01/19/2012 04/09/2015 Porokeratosis 06/04/2011 04/09/2015 Supervision of normal first 05/25/2011 05/25/2011 Supervision of other high-risk (V23.89) 05/25/2011 12/20/2012 Papanicolaou smear of cervix with atypical squamous cells of undetermined significance (ASC-US) 08/14/2008 04/09/2015 Cervical high risk human pap illomavirus (HPV) DNA test positive 08/14/2008 04/09/2015 Obesity, unspecified 04/20/2007 04/09/2015 documented as of this encounter (statuses as of 12/17/2021) [facility] of [facility] illness Narrative* Problem Noted Date Resolved Date History of asthma 01/11/2019 11/27/2021 Overview: 01/11/2019 Pt has a history of asthma. She uses an inhaler PRN. TKRN Tobacco use in , antepartum 01/11/2019 11/27/2021 Overview: 01/11/2019Pt smokes 3 cigarettes a day, down from 1 ppd. a day. Discussed risks of smoking during . Advised pt to quit. TKRN History of depression 01/11/2019 11/27/2021 Overview: 01/11/2019Pt has a history of depression diagnosed in [address] Moya. She denies any depression. She denies ever having suicidal thoughts. Discussed increased risks of depression during and and importance of reporting the development or worsening of symptoms should they occur. Pt has a history of Herpes. Discussed with pt. importance of reporting any outbreaks during should they occur. TKRN Patient request for diagnostic testing 11/27/2021 Overview: 01/11/2019 Patient desires nuchal ultrasound. TKRN Acute bilateral low back pain without sciatica 0 05/30/2018 11/27/2021 Hemangioma 02/15/2013 04/09/2015 Benign neoplasm of skin of trunk, except scrotum 02/07/2013 04/09/2015 Chronic, continuous use of opioids 10/17/2012 04/09/2015 Chronic pain 10/17/2012 04/09/2015 Left foot pain 10/17/2012 04/09/2015 Lumbar strain 05/17/2012 04/09/2015 Overview: Per ER report at [facility] 05/06/12-Naproxen. Skin lesion 01/19/2012 04/09/2015 Porokeratosis 06/04/2011 04/09/2015 Supervision of normal first 05/25/2011 05/25/2011 Supervision of other high-risk (V23.89) 05/25/2011 12/20/2012 Papanicolaou smear of cervix with atypical squamous cells of undetermined significance (ASC-US) 08/14/2008 04/09/2015 Cervical high risk human pap illomavirus (HPV) DNA test positive 08/14/2008 04/09/2015 Obesity, unspecified 04/20/2007 04/09/2015 documented as of this encounter (statuses as of 12/17/2021) [facility] of Past illness Narrative* Problem Noted Date Resolved Date History of asthma 01/11/2019 11/27/2021 Overview: 01/11/2019 Pt has a history of asthma. She uses an inhaler PRN. TKRN Tobacco use in , antepartum 01/11/2019 11/27/2021 Overview: 01/11/2019Pt smokes 3 cigarettes a day, down from 1 ppd. a day. Discussed risks of smoking during . Advised pt to quit. TKRN History of depression 01/11/2019 11/27/2021 Overview: 01/11/2019Pt has a history of depression diagnosed in [address] Moya. She denies any depression. She denies ever having suicidal thoughts. Discussed increased risks of depression during and and importance of reporting the development or worsening of symptoms should they occur. Pt has a history of Herpes. Discussed with pt. importance of reporting any outbreaks during should they occur. TKRN Patient request for diagnostic testing 9 11/27/2021 Overview: 01/11/2019 Patient desires nuchal ultrasound. TKRN Acute bilateral low back pain without sciatica 0 05/30/2018 11/27/2021 Hemangioma 02/15/2013 04/09/2015 Benign neoplasm of skin of trunk, except scrotum 02/07/2013 04/09/2015 Chronic, continuous use of opioids 10/17/2012 04/09/2015 Chronic pain 10/17/2012 04/09/2015 Left foot pain 10/17/2012 04/09/2015 Lumbar strain 05/17/2012 04/09/2015 Overview: Per ER report at [facility] 05/06/12-Naproxen. Skin lesion 01/19/2012 04/09/2015 Porokeratosis 06/04/2011 04/09/2015 Supervision of normal first 05/25/2011 05/25/2011 Supervision of other high-risk (V23.89) 05/25/2011 12/20/2012 Papanicolaou smear of cervix with atypical squamous cells of undetermined significance (ASC-US) 08/14/2008 04/09/2015 Cervical high risk human pap illomavirus (HPV) DNA test positive 08/14/2008 04/09/2015 Obesity, unspecified 04/20/2007 04/09/2015 documented as of this encounter (statuses as of 12/18/2021) [facility]05-09-2019 History of Past illness Narrative* Problem Noted Date Resolved Date History of asthma 01/11/2019 11/27/2021 Overview: 01/11/2019 Pt has a history of asthma. She uses an inhaler PRN. TKRN Tobacco use in , antepartum 01/11/2019 11/27/2021 Overview: 01/11/2019Pt smokes 3 cigarettes a day, down from 1 ppd. a day. Discussed risks of smoking during . Advised pt to quit. TKRN History of depression 01/11/2019 11/27/2021 Overview: 01/11/2019Pt has a history of depression diagnosed in [address] Moya. She denies any depression. She denies ever having suicidal thoughts. Discussed increased risks of depression during and and importance of reporting the development or worsening of symptoms should they occur. Pt has a history of Herpes. Discussed with pt. importance of reporting any outbreaks during should they occur. TKRN Patient request for diagnostic testing 9 11/27/2021 Overview: 01/11/2019 Patient desires nuchal ultrasound. TKRN Acute bilateral low back pain without sciatica 0 05/30/2018 11/27/2021 Hemangioma 02/15/2013 04/09/2015 Benign neoplasm of skin of trunk, except scrotum 02/07/2013 04/09/2015 Chronic, continuous use of opioids 10/17/2012 04/09/2015 Chronic pain 10/17/2012 04/09/2015 Left foot pain 10/17/2012 04/09/2015 Lumbar strain 05/17/2012 04/09/2015 Overview: Per ER report at [facility] 05/06/12-Naproxen. Skin lesion 01/19/2012 04/09/2015 Porokeratosis 06/04/2011 04/09/2015 Supervision of normal first 05/25/2011 05/25/2011 Supervision of other high-risk (V23.89) 05/25/2011 12/20/2012 Papanicolaou smear of cervix with atypical squamous cells of undetermined significance (ASC-US) 08/14/2008 04/09/2015 Cervical high risk human pap illomavirus (HPV) DNA test positive 08/14/2008 04/09/2015 Obesity, unspecified 04/20/2007 04/09/2015 documented as of this encounter (statuses as of 12/18/2021) [facility]05-[facility]2019 History of Past illness Narrative* Problem Noted Date Resolved Date History of asthma 01/11/2019 11/27/2021 Overview: 01/11/2019 Pt has a history of asthma. She uses an inhaler PRN. TKRN Tobacco use in , antepartum 01/11/2019 11/27/2021 Overview: 01/11/2019Pt smokes 3 cigarettes a day, down from 1 ppd. a day. Discussed risks of smoking during . Advised pt to quit. TKRN History of depression 01/11/2019 11/27/2021 Overview: 01/11/2019Pt has a history of depression diagnosed in [address] Moya. She denies any depression. She denies ever having suicidal thoughts. Discussed increased risks of depression during and and importance of reporting the development or worsening of symptoms should they occur. Pt has a history of Herpes. Discussed with pt. importance of reporting any outbreaks during should they occur. TKRN Patient request for diagnostic testing 9 11/27/2021 Overview: 01/11/2019 Patient desires nuchal ultrasound. TKRN Acute bilateral low back pain without sciatica 0 05/30/2018 11/27/2021 Hemangioma 02/15/2013 04/09/2015 Benign neoplasm of skin of trunk, except scrotum 02/07/2013 04/09/2015 Chronic, continuous use of opioids 10/17/2012 04/09/2015 Chronic pain 10/17/2012 04/09/2015 Left foot pain 10/17/2012 04/09/2015 Lumbar strain 05/17/2012 04/09/2015 Overview: Per ER report at [facility] 05/06/12-Naproxen. Skin lesion 01/19/2012 04/09/2015 Porokeratosis 06/04/2011 04/09/2015 Supervision of normal first 05/25/2011 05/25/2011 Supervision of other high-risk (V23.89) 05/25/2011 12/20/2012 Papanicolaou smear of cervix with atypical squamous cells of undetermined significance (ASC-US) 08/14/2008 04/09/2015 Cervical high risk human pap illomavirus (HPV) DNA test positive 08/14/2008 04/09/2015 Obesity, unspecified 04/20/2007 04/09/2015 documented as of this encounter (statuses as of 12/21/2021) [facility]05-[facility]2019 History of Past illness Narrative* Problem Noted Date Resolved Date History of asthma 01/11/2019 11/27/2021 Overview: 01/11/2019 Pt has a history of asthma. She uses an inhaler PRN. TKRN Tobacco use in , antepartum 01/11/2019 11/27/2021 Overview: 01/11/2019Pt smokes 3 cigarettes a day, down from 1 ppd. a day. Discussed risks of smoking during . Advised pt to quit. TKRN History of depression 01/11/2019 11/27/2021 Overview: 01/11/2019Pt has a history of depression diagnosed in [address] Moya. She denies any depression. She denies ever having suicidal thoughts. Discussed increased risks of depression during and and importance of reporting the development or worsening of symptoms should they occur. Pt has a history of Herpes. Discussed with pt. importance of reporting any outbreaks during should they occur. TKRN Patient request for diagnostic testing 9 11/27/2021 Overview: 01/11/2019 Patient desires nuchal ultrasound. TKRN Acute bilateral low back pain without sciatica 0 05/30/2018 11/27/2021 Hemangioma 02/15/2013 04/09/2015 Benign neoplasm of skin of trunk, except scrotum 02/07/2013 04/09/2015 Chronic, continuous use of opioids 10/17/2012 04/09/2015 Chronic pain 10/17/2012 04/09/2015 Left foot pain 10/17/2012 04/09/2015 Lumbar strain 05/17/2012 04/09/2015 Overview: Per ER report at [facility] 05/06/12-Naproxen. Skin lesion 01/19/2012 04/09/2015 Porokeratosis 06/04/2011 04/09/2015 Supervision of normal first 05/25/2011 05/25/2011 Supervision of other high-risk (V23.89) 05/25/2011 12/20/2012 Papanicolaou smear of cervix with atypical squamous cells of undetermined significance (ASC-US) 08/14/2008 04/09/2015 Cervical high risk human pap illomavirus (HPV) DNA test positive 08/14/2008 04/09/2015 Obesity, unspecified 04/20/2007 04/09/2015 documented as of this encounter (statuses as of 12/23/2021) [facility]05-09[facility]2019 History of Past illness Narrative* Problem Noted Date Resolved Date History of asthma 01/11/2019 11/27/2021 Overview: 01/11/2019 Pt has a history of asthma. She uses an inhaler PRN. TKRN Tobacco use in , antepartum 01/11/2019 11/27/2021 Overview: 01/11/2019Pt smokes 3 cigarettes a day, down from 1 ppd. a day. Discussed risks of smoking during . Advised pt to quit. TKRN History of depression 01/11/2019 11/27/2021 Overview: 01/11/2019Pt has a history of depression diagnosed in [address] Moya. She denies any depression. She denies ever having suicidal thoughts. Discussed increased risks of depression during and and importance of reporting the development or worsening of symptoms should they occur. Pt has a history of Herpes. Discussed with pt. importance of reporting any outbreaks during should they occur. TKRN Patient request for diagnostic testing 9 11/27/2021 Overview: 01/11/2019 Patient desires nuchal ultrasound. TKRN Acute bilateral low back pain without sciatica 0 05/30/2018 11/27/2021 Hemangioma 02/15/2013 04/09/2015 Benign neoplasm of skin of trunk, except scrotum 02/07/2013 04/09/2015 Chronic, continuous use of opioids 10/17/2012 04/09/2015 Chronic pain 10/17/2012 04/09/2015 Left foot pain 10/17/2012 04/09/2015 Lumbar strain 05/17/2012 04/09/2015 Overview: Per ER report at [facility] 05/06/12-Naproxen. Skin lesion 01/19/2012 04/09/2015 Porokeratosis 06/04/2011 04/09/2015 Supervision of normal first 05/25/2011 05/25/2011 Supervision of other high-risk (V23.89) 05/25/2011 12/20/2012 Papanicolaou smear of cervix with atypical squamous cells of undetermined significance (ASC-US) 08/14/2008 04/09/2015 Cervical high risk human pap illomavirus (HPV) DNA test positive 08/14/2008 04/09/2015 Obesity, unspecified 04/20/2007 04/09/2015 documented as of this encounter (statuses as of 12/29/2021) [facility]05-[facility] History of Past illness Narrative* Problem Noted Date Resolved Date History of asthma 01/11/2019 11/27/2021 Overview: 01/11/2019 Pt has a history of asthma. She uses an inhaler PRN. TKRN Tobacco use in , antepartum 01/11/2019 11/27/2021 Overview: 01/11/2019Pt smokes 3 cigarettes a day, down from 1 ppd. a day. Discussed risks of smoking during . Advised pt to quit. TKRN History of depression 01/11/2019 11/27/2021 Overview: 01/11/2019Pt has a history of depression diagnosed in [address] Moya. She denies any depression. She denies ever having suicidal thoughts. Discussed increased risks of depression during and and importance of reporting the development or worsening of symptoms should they occur. Pt has a history of Herpes. Discussed with pt. importance of reporting any outbreaks during should they occur. TKRN Patient request for diagnostic testing 11/27/2021 Overview: 01/11/2019 Patient desires nuchal ultrasound. TKRN Acute bilateral low back pain without sciatica 0 05/30/2018 11/27/2021 Hemangioma 02/15/2013 04/09/2015 Benign neoplasm of skin of trunk, except scrotum 02/07/2013 04/09/2015 Chronic, continuous use of opioids 10/17/2012 04/09/2015 Chronic pain 10/17/2012 04/09/2015 Left foot pain 10/17/2012 04/09/2015 Lumbar strain 05/17/2012 04/09/2015 Overview: Per ER report at [facility] 05/06/12-Naproxen. Skin lesion 01/19/2012 04/09/2015 Porokeratosis 06/04/2011 04/09/2015 Supervision of normal first 05/25/2011 05/25/2011 Supervision of other high-risk (V23.89) 05/25/2011 12/20/2012 Papanicolaou smear of cervix with atypical squamous cells of undetermined significance (ASC-US) 08/14/2008 04/09/2015 Cervical high risk human pap illomavirus (HPV) DNA test positive 08/14/2008 04/09/2015 Obesity, unspecified 04/20/2007 04/09/2015 documented as of this encounter (statuses as of 01/05/2022) [facility]05-[facility]2019 History of Past illness Narrative* Problem Noted Date Resolved Date History of asthma 01/11/2019 11/27/2021 Overview: 01/11/2019 Pt has a history of asthma. She uses an inhaler PRN. TKRN Tobacco use in , antepartum 01/11/2019 11/27/2021 Overview: 01/11/2019Pt smokes 3 cigarettes a day, down from 1 ppd. a day. Discussed risks of smoking during . Advised pt to quit. TKRN History of depression 01/11/2019 11/27/2021 Overview: 01/11/2019Pt has a history of depression diagnosed in [address] Moya. She denies any depression. She denies ever having suicidal thoughts. Discussed increased risks of depression during and and importance of reporting the development or worsening of symptoms should they occur. Pt has a history of Herpes. Discussed with pt. importance of reporting any outbreaks during should they occur. TKRN Patient request for diagnostic testing 9 11/27/2021 Overview: 01/11/2019 Patient desires nuchal ultrasound. TKRN Acute bilateral low back pain without sciatica 0 05/30/2018 11/27/2021 Hemangioma 02/15/2013 04/09/2015 Benign neoplasm of skin of trunk, except scrotum 02/07/2013 04/09/2015 Chronic, continuous use of opioids 10/17/2012 04/09/2015 Chronic pain 10/17/2012 04/09/2015 Left foot pain 10/17/2012 04/09/2015 Lumbar strain 05/17/2012 04/09/2015 Overview: Per ER report at [facility] 05/06/12-Naproxen. Skin lesion 01/19/2012 04/09/2015 Porokeratosis 06/04/2011 04/09/2015 Supervision of normal first 05/25/2011 05/25/2011 Supervision of other high-risk (V23.89) 05/25/2011 12/20/2012 Papanicolaou smear of cervix with atypical squamous cells of undetermined significance (ASC-US) 08/14/2008 04/09/2015 Cervical high risk human pap illomavirus (HPV) DNA test positive 08/14/2008 04/09/2015 Obesity, unspecified 04/20/2007 04/09/2015 documented as of this encounter (statuses as of 01/05/2022) [facility]05-[facility] History of Past illness Narrative* Problem Noted Date Resolved Date History of asthma 01/11/2019 11/27/2021 Overview: 01/11/2019 Pt has a history of asthma. She uses an inhaler PRN. TKRN Tobacco use in , antepartum 01/11/2019 11/27/2021 Overview: 01/11/2019Pt smokes 3 cigarettes a day, down from 1 ppd. a day. Discussed risks of smoking during . Advised pt to quit. TKRN History of depression 01/11/2019 11/27/2021 Overview: 01/11/2019Pt has a history of depression diagnosed in [address] Moya. She denies any depression. She denies ever having suicidal thoughts. Discussed increased risks of depression during and and importance of reporting the development or worsening of symptoms should they occur. Pt has a history of Herpes. Discussed with pt. importance of reporting any outbreaks during should they occur. TKRN Patient request for diagnostic testing 9 11/27/2021 Overview: 01/11/2019 Patient desires nuchal ultrasound. TKRN Acute bilateral low back pain without sciatica 0 05/30/2018 11/27/2021 Hemangioma 02/15/2013 04/09/2015 Benign neoplasm of skin of trunk, except scrotum 02/07/2013 04/09/2015 Chronic, continuous use of opioids 10/17/2012 04/09/2015 Chronic pain 10/17/2012 04/09/2015 Left foot pain 10/17/2012 04/09/2015 Lumbar strain 05/17/2012 04/09/2015 Overview: Per ER report at [facility] 05/06/12-Naproxen. Skin lesion 01/19/2012 04/09/2015 Porokeratosis 06/04/2011 04/09/2015 Supervision of normal first 05/25/2011 05/25/2011 Supervision of other high-risk (V23.89) 05/25/2011 12/20/2012 Papanicolaou smear of cervix with atypical squamous cells of undetermined significance (ASC-US) 08/14/2008 04/09/2015 Cervical high risk human pap illomavirus (HPV) DNA test positive 08/14/2008 04/09/2015 Obesity, unspecified 04/20/2007 04/09/2015 documented as of this encounter (statuses as of 01/11/2022) [facility]05[facility] History of Past illness Narrative* Problem Noted Date Resolved Date History of asthma 01/11/2019 11/27/2021 Overview: 01/11/2019 Pt has a history of asthma. She uses an inhaler PRN. TKRN Tobacco use in , antepartum 01/11/2019 11/27/2021 Overview: 01/11/2019Pt smokes 3 cigarettes a day, down from 1 ppd. a day. Discussed risks of smoking during . Advised pt to quit. TKRN History of depression 01/11/2019 11/27/2021 Overview: 01/11/2019Pt has a history of depression diagnosed in [address] Moya. She denies any depression. She denies ever having suicidal thoughts. Discussed increased risks of depression during and and importance of reporting the development or worsening of symptoms should they occur. Pt has a history of Herpes. Discussed with pt. importance of reporting any outbreaks during should they occur. TKRN Patient request for diagnostic testing 9 11/27/2021 Overview: 01/11/2019 Patient desires nuchal ultrasound. TKRN Acute bilateral low back pain without sciatica 0 05/30/2018 11/27/2021 Hemangioma 02/15/2013 04/09/2015 Benign neoplasm of skin of trunk, except scrotum 02/07/2013 04/09/2015 Chronic, continuous use of opioids 10/17/2012 04/09/2015 Chronic pain 10/17/2012 04/09/2015 Left foot pain 10/17/2012 04/09/2015 Lumbar strain 05/17/2012 04/09/2015 Overview: Per ER report at [facility] 05/06/12-Naproxen. Skin lesion 01/19/2012 04/09/2015 Porokeratosis 06/04/2011 04/09/2015 Supervision of normal first 05/25/2011 05/25/2011 Supervision of other high-risk (V23.89) 05/25/2011 12/20/2012 Papanicolaou smear of cervix with atypical squamous cells of undetermined significance (ASC-US) 08/14/2008 04/09/2015 Cervical high risk human pap illomavirus (HPV) DNA test positive 08/14/2008 04/09/2015 Obesity, unspecified 04/20/2007 04/09/2015 documented as of this encounter (statuses as of 01/15/2022) [facility]05[facility] History of Past illness Narrative* Problem Noted Date Resolved Date History of asthma 01/11/2019 11/27/2021 Overview: 01/11/2019 Pt has a history of asthma. She uses an inhaler PRN. TKRN Tobacco use in , antepartum 01/11/2019 11/27/2021 Overview: 01/11/2019Pt smokes 3 cigarettes a day, down from 1 ppd. a day. Discussed risks of smoking during . Advised pt to quit. TKRN History of depression 01/11/2019 11/27/2021 Overview: 01/11/2019Pt has a history of depression diagnosed in [address] Moya. She denies any depression. She denies ever having suicidal thoughts. Discussed increased risks of depression during and and importance of reporting the development or worsening of symptoms should they occur. Pt has a history of Herpes. Discussed with pt. importance of reporting any outbreaks during should they occur. TKRN Patient request for diagnostic testing 11/27/2021 Overview: 01/11/2019 Patient desires nuchal ultrasound. TKRN Acute bilateral low back pain without sciatica 0 05/30/2018 11/27/2021 Hemangioma 02/15/2013 04/09/2015 Benign neoplasm of skin of trunk, except scrotum 02/07/2013 04/09/2015 Chronic, continuous use of opioids 10/17/2012 04/09/2015 Chronic pain 10/17/2012 04/09/2015 Left foot pain 10/17/2012 04/09/2015 Lumbar strain 05/17/2012 04/09/2015 Overview: Per ER report at [facility] 05/06/12-Naproxen. Skin lesion 01/19/2012 04/09/2015 Porokeratosis 06/04/2011 04/09/2015 Supervision of normal first 05/25/2011 05/25/2011 Supervision of other high-risk (V23.89) 05/25/2011 12/20/2012 Papanicolaou smear of cervix with atypical squamous cells of undetermined significance (ASC-US) 08/14/2008 04/09/2015 Cervical high risk human pap illomavirus (HPV) DNA test positive 08/14/2008 04/09/2015 Obesity, unspecified 04/20/2007 04/09/2015 documented as of this encounter (statuses as of 02/13/2022) [facility] History of Past illness Narrative* Problem Noted Date Resolved Date History of asthma 01/11/2019 11/27/2021 Overview: 01/11/2019 Pt has a history of asthma. She uses an inhaler PRN. TKRN Tobacco use in , antepartum 01/11/2019 11/27/2021 Overview: 01/11/2019Pt smokes 3 cigarettes a day, down from 1 ppd. a day. Discussed risks of smoking during . Advised pt to quit. TKRN History of depression 01/11/2019 11/27/2021 Overview: 01/11/2019Pt has a history of depression diagnosed in [address] Moya. She denies any depression. She denies ever having suicidal thoughts. Discussed increased risks of depression during and and importance of reporting the development or worsening of symptoms should they occur. Pt has a history of Herpes. Discussed with pt. importance of reporting any outbreaks during should they occur. TKRN Patient request for diagnostic testing 9 11/27/2021 Overview: 01/11/2019 Patient desires nuchal ultrasound. TKRN Acute bilateral low back pain without sciatica 0 05/30/2018 11/27/2021 Hemangioma 02/15/2013 04/09/2015 Benign neoplasm of skin of trunk, except scrotum 02/07/2013 04/09/2015 Chronic, continuous use of opioids 10/17/2012 04/09/2015 Chronic pain 10/17/2012 04/09/2015 Left foot pain 10/17/2012 04/09/2015 Lumbar strain 05/17/2012 04/09/2015 Overview: Per ER report at [facility] 05/06/12-Naproxen. Skin lesion 01/19/2012 04/09/2015 Porokeratosis 06/04/2011 04/09/2015 Supervision of normal first 05/25/2011 05/25/2011 Supervision of other high-risk (V23.89) 05/25/2011 12/20/2012 Papanicolaou smear of cervix with atypical squamous cells of undetermined significance (ASC-US) 08/14/2008 04/09/2015 Cervical high risk human pap illomavirus (HPV) DNA test positive 08/14/2008 04/09/2015 Obesity, unspecified 04/20/2007 04/09/2015 documented as of this encounter (statuses as of 03/10/2022) [facility] History of Past illness Narrative* Problem Noted Date Resolved Date History of asthma 01/11/2019 11/27/2021 Overview: 01/11/2019 Pt has a history of asthma. She uses an inhaler PRN. TKRN Tobacco use in , antepartum 01/11/2019 11/27/2021 Overview: 01/11/2019Pt smokes 3 cigarettes a day, down from 1 ppd. a day. Discussed risks of smoking during . Advised pt to quit. TKRN History of depression 01/11/2019 11/27/2021 Overview: 01/11/2019Pt has a history of depression diagnosed in [address] Moya. She denies any depression. She denies ever having suicidal thoughts. Discussed increased risks of depression during and and importance of reporting the development or worsening of symptoms should they occur. Pt has a history of Herpes. Discussed with pt. importance of reporting any outbreaks during should they occur. TKRN Patient request for diagnostic testing 11/27/2021 Overview: 01/11/2019 Patient desires nuchal ultrasound. TKRN Acute bilateral low back pain without sciatica 0 05/30/2018 11/27/2021 Hemangioma 02/15/2013 04/09/2015 Benign neoplasm of skin of trunk, except scrotum 02/07/2013 04/09/2015 Chronic, continuous use of opioids 10/17/2012 04/09/2015 Chronic pain 10/17/2012 04/09/2015 Left foot pain 10/17/2012 04/09/2015 Lumbar strain 05/17/2012 04/09/2015 Overview: Per ER report at [facility] 05/06/12-Naproxen. Skin lesion 01/19/2012 04/09/2015 Porokeratosis 06/04/2011 04/09/2015 Supervision of normal first 05/25/2011 05/25/2011 Supervision of other high-risk (V23.89) 05/25/2011 12/20/2012 Papanicolaou smear of cervix with atypical squamous cells of undetermined significance (ASC-US) 08/14/2008 04/09/2015 Cervical high risk human pap illomavirus (HPV) DNA test positive 08/14/2008 04/09/2015 Obesity, unspecified 04/20/2007 04/09/2015 documented as of this encounter (statuses as of 03/11/2022) [facility] History of Past illness Narrative* Problem Noted Date Resolved Date History of asthma 01/11/2019 11/27/2021 Overview: 01/11/2019 Pt has a history of asthma. She uses an inhaler PRN. TKRN Tobacco use in , antepartum 01/11/2019 11/27/2021 Overview: 01/11/2019Pt smokes 3 cigarettes a day, down from 1 ppd. a day. Discussed risks of smoking during . Advised pt to quit. TKRN History of depression 01/11/2019 11/27/2021 Overview: 01/11/2019Pt has a history of depression diagnosed in [address] Moya. She denies any depression. She denies ever having suicidal thoughts. Discussed increased risks of depression during and and importance of reporting the development or worsening of symptoms should they occur. Pt has a history of Herpes. Discussed with pt. importance of reporting any outbreaks during should they occur. TKRN Patient request for diagnostic testing 11/27/2021 Overview: 01/11/2019 Patient desires nuchal ultrasound. TKRN Acute bilateral low back pain without sciatica 0 05/30/2018 11/27/2021 Hemangioma 02/15/2013 04/09/2015 Benign neoplasm of skin of trunk, except scrotum 02/07/2013 04/09/2015 Chronic, continuous use of opioids 10/17/2012 04/09/2015 Chronic pain 10/17/2012 04/09/2015 Left foot pain 10/17/2012 04/09/2015 Lumbar strain 05/17/2012 04/09/2015 Overview: Per ER report at [facility] 05/06/12-Naproxen. Skin lesion 01/19/2012 04/09/2015 Porokeratosis 06/04/2011 04/09/2015 Supervision of normal first 05/25/2011 05/25/2011 Supervision of other high-risk (V23.89) 05/25/2011 12/20/2012 Papanicolaou smear of cervix with atypical squamous cells of undetermined significance (ASC-US) 08/14/2008 04/09/2015 Cervical high risk human pap illomavirus (HPV) DNA test positive 08/14/2008 04/09/2015 Obesity, unspecified 04/20/2007 04/09/2015 documented as of this encounter (statuses as of 03/12/2022) [facility] History of Past illness Narrative* Problem Noted Date Resolved Date History of asthma 01/11/2019 11/27/2021 Overview: 01/11/2019 Pt has a history of asthma. She uses an inhaler PRN. TKRN Tobacco use in , antepartum 01/11/2019 11/27/2021 Overview: 01/11/2019Pt smokes 3 cigarettes a day, down from 1 ppd. a day. Discussed risks of smoking during . Advised pt to quit. TKRN History of depression 01/11/2019 11/27/2021 Overview: 01/11/2019Pt has a history of depression diagnosed in [address] Moya. She denies any depression. She denies ever having suicidal thoughts. Discussed increased risks of depression during and and importance of reporting the development or worsening of symptoms should they occur. Pt has a history of Herpes. Discussed with pt. importance of reporting any outbreaks during should they occur. TKRN Patient request for diagnostic testing 9 11/27/2021 Overview: 01/11/2019 Patient desires nuchal ultrasound. TKRN Acute bilateral low back pain without sciatica 0 05/30/2018 11/27/2021 Hemangioma 02/15/2013 04/09/2015 Benign neoplasm of skin of trunk, except scrotum 02/07/2013 04/09/2015 Chronic, continuous use of opioids 10/17/2012 04/09/2015 Chronic pain 10/17/2012 04/09/2015 Left foot pain 10/17/2012 04/09/2015 Lumbar strain 05/17/2012 04/09/2015 Overview: Per ER report at [facility] 05/06/12-Naproxen. Skin lesion 01/19/2012 04/09/2015 Porokeratosis 06/04/2011 04/09/2015 Supervision of normal first 05/25/2011 05/25/2011 Supervision of other high-risk (V23.89) 05/25/2011 12/20/2012 Papanicolaou smear of cervix with atypical squamous cells of undetermined significance (ASC-US) 08/14/2008 04/09/2015 Cervical high risk human pap illomavirus (HPV) DNA test positive 08/14/2008 04/09/2015 Obesity, unspecified 04/20/2007 04/09/2015 documented as of this encounter (statuses as of 03/16/2022) [facility]05-[facility]-2019 History of Past illness Narrative* Problem Noted Date Resolved Date History of asthma 01/11/2019 11/27/2021 Overview: 01/11/2019 Pt has a history of asthma. She uses an inhaler PRN. TKRN Tobacco use in , antepartum 01/11/2019 11/27/2021 Overview: 01/11/2019Pt smokes 3 cigarettes a day, down from 1 ppd. a day. Discussed risks of smoking during . Advised pt to quit. TKRN History of depression 01/11/2019 11/27/2021 Overview: 01/11/2019Pt has a history of depression diagnosed in [address] Moya. She denies any depression. She denies ever having suicidal thoughts. Discussed increased risks of depression during and and importance of reporting the development or worsening of symptoms should they occur. Pt has a history of Herpes. Discussed with pt. importance of reporting any outbreaks during should they occur. TKRN Patient request for diagnostic testing 9 11/27/2021 Overview: 01/11/2019 Patient desires nuchal ultrasound. TKRN Acute bilateral low back pain without sciatica 0 05/30/2018 11/27/2021 Hemangioma 02/15/2013 04/09/2015 Benign neoplasm of skin of trunk, except scrotum 02/07/2013 04/09/2015 Chronic, continuous use of opioids 10/17/2012 04/09/2015 Chronic pain 10/17/2012 04/09/2015 Left foot pain 10/17/2012 04/09/2015 Lumbar strain 05/17/2012 04/09/2015 Overview: Per ER report at [facility] 05/06/12-Naproxen. Skin lesion 01/19/2012 04/09/2015 Porokeratosis 06/04/2011 04/09/2015 Supervision of normal first 05/25/2011 05/25/2011 Supervision of other high-risk (V23.89) 05/25/2011 12/20/2012 Papanicolaou smear of cervix with atypical squamous cells of undetermined significance (ASC-US) 08/14/2008 04/09/2015 Cervical high risk human pap illomavirus (HPV) DNA test positive 08/14/2008 04/09/2015 Obesity, unspecified 04/20/2007 04/09/2015 documented as of this encounter (statuses as of 03/30/2022) [facility]05-[facility]2019 History of Past illness Narrative* Problem Noted Date Resolved Date History of asthma 01/11/2019 11/27/2021 Overview: 01/11/2019 Pt has a history of asthma. She uses an inhaler PRN. TKRN Tobacco use in , antepartum 01/11/2019 11/27/2021 Overview: 01/11/2019Pt smokes 3 cigarettes a day, down from 1 ppd. a day. Discussed risks of smoking during . Advised pt to quit. TKRN History of depression 01/11/2019 11/27/2021 Overview: 01/11/2019Pt has a history of depression diagnosed in [address] Moya. She denies any depression. She denies ever having suicidal thoughts. Discussed increased risks of depression during and and importance of reporting the development or worsening of symptoms should they occur. Pt has a history of Herpes. Discussed with pt. importance of reporting any outbreaks during should they occur. TKRN Patient request for diagnostic testing 11/27/2021 Overview: 01/11/2019 Patient desires nuchal ultrasound. TKRN Acute bilateral low back pain without sciatica 0 05/30/2018 11/27/2021 Hemangioma 02/15/2013 04/09/2015 Benign neoplasm of skin of trunk, except scrotum 02/07/2013 04/09/2015 Chronic, continuous use of opioids 10/17/2012 04/09/2015 Chronic pain 10/17/2012 04/09/2015 Left foot pain 10/17/2012 04/09/2015 Lumbar strain 05/17/2012 04/09/2015 Overview: Per ER report at [facility] 05/06/12-Naproxen. Skin lesion 01/19/2012 04/09/2015 Porokeratosis 06/04/2011 04/09/2015 Supervision of normal first 05/25/2011 05/25/2011 Supervision of other high-risk (V23.89) 05/25/2011 12/20/2012 Papanicolaou smear of cervix with atypical squamous cells of undetermined significance (ASC-US) 08/14/2008 04/09/2015 Cervical high risk human pap illomavirus (HPV) DNA test positive 08/14/2008 04/09/2015 Obesity, unspecified 04/20/2007 04/09/2015 documented as of this encounter (statuses as of 04/05/2022) [facility] History of Past illness Narrative* Problem Noted Date Resolved Date History of asthma 01/11/2019 11/27/2021 Overview: 01/11/2019 Pt has a history of asthma. She uses an inhaler PRN. TKRN Tobacco use in , antepartum 01/11/2019 11/27/2021 Overview: 01/11/2019Pt smokes 3 cigarettes a day, down from 1 ppd. a day. Discussed risks of smoking during . Advised pt to quit. TKRN History of depression 01/11/2019 11/27/2021 Overview: 01/11/2019Pt has a history of depression diagnosed in [address] Moya. She denies any depression. She denies ever having suicidal thoughts. Discussed increased risks of depression during and and importance of reporting the development or worsening of symptoms should they occur. Pt has a history of Herpes. Discussed with pt. importance of reporting any outbreaks during should they occur. TKRN Patient request for diagnostic testing 9 11/27/2021 Overview: 01/11/2019 Patient desires nuchal ultrasound. TKRN Acute bilateral low back pain without sciatica 0 05/30/2018 11/27/2021 Hemangioma 02/15/2013 04/09/2015 Benign neoplasm of skin of trunk, except scrotum 02/07/2013 04/09/2015 Chronic, continuous use of opioids 10/17/2012 04/09/2015 Chronic pain 10/17/2012 04/09/2015 Left foot pain 10/17/2012 04/09/2015 Lumbar strain 05/17/2012 04/09/2015 Overview: Per ER report at [facility] 05/06/12-Naproxen. Skin lesion 01/19/2012 04/09/2015 Porokeratosis 06/04/2011 04/09/2015 Supervision of normal first 05/25/2011 05/25/2011 Supervision of other high-risk (V23.89) 05/25/2011 12/20/2012 Papanicolaou smear of cervix with atypical squamous cells of undetermined significance (ASC-US) 08/14/2008 04/09/2015 Cervical high risk human pap illomavirus (HPV) DNA test positive 08/14/2008 04/09/2015 Obesity, unspecified 04/20/2007 04/09/2015 documented as of this encounter (statuses as of 04/12/2022) [facility]05-[facility] History of Past illness Narrative* Problem Noted Date Resolved Date History of asthma 01/11/2019 11/27/2021 Overview: 01/11/2019 Pt has a history of asthma. She uses an inhaler PRN. TKRN Tobacco use in , antepartum 01/11/2019 11/27/2021 Overview: 01/11/2019Pt smokes 3 cigarettes a day, down from 1 ppd. a day. Discussed risks of smoking during . Advised pt to quit. TKRN History of depression 01/11/2019 11/27/2021 Overview: 01/11/2019Pt has a history of depression diagnosed in [address] Moya. She denies any depression. She denies ever having suicidal thoughts. Discussed increased risks of depression during and and importance of reporting the development or worsening of symptoms should they occur. Pt has a history of Herpes. Discussed with pt. importance of reporting any outbreaks during should they occur. TKRN Patient request for diagnostic testing 9 11/27/2021 Overview: 01/11/2019 Patient desires nuchal ultrasound. TKRN Acute bilateral low back pain without sciatica 0 05/30/2018 11/27/2021 Hemangioma 02/15/2013 04/09/2015 Benign neoplasm of skin of trunk, except scrotum 02/07/2013 04/09/2015 Chronic, continuous use of opioids 10/17/2012 04/09/2015 Chronic pain 10/17/2012 04/09/2015 Left foot pain 10/17/2012 04/09/2015 Lumbar strain 05/17/2012 04/09/2015 Overview: Per ER report at [facility] 05/06/12-Naproxen. Skin lesion 01/19/2012 04/09/2015 Porokeratosis 06/04/2011 04/09/2015 Supervision of normal first 05/25/2011 05/25/2011 Supervision of other high-risk (V23.89) 05/25/2011 12/20/2012 Papanicolaou smear of cervix with atypical squamous cells of undetermined significance (ASC-US) 08/14/2008 04/09/2015 Cervical high risk human pap illomavirus (HPV) DNA test positive 08/14/2008 04/09/2015 Obesity, unspecified 04/20/2007 04/09/2015 documented as of this encounter (statuses as of 05/14/2022) [facility]05-[facility] History of Past illness Narrative* Problem Noted Date Resolved Date History of asthma 01/11/2019 11/27/2021 Overview: 01/11/2019 Pt has a history of asthma. She uses an inhaler PRN. TKRN Tobacco use in , antepartum 01/11/2019 11/27/2021 Overview: 01/11/2019Pt smokes 3 cigarettes a day, down from 1 ppd. a day. Discussed risks of smoking during . Advised pt to quit. TKRN History of depression 01/11/2019 11/27/2021 Overview: 01/11/2019Pt has a history of depression diagnosed in [address] Moya. She denies any depression. She denies ever having suicidal thoughts. Discussed increased risks of depression during and and importance of reporting the development or worsening of symptoms should they occur. Pt has a history of Herpes. Discussed with pt. importance of reporting any outbreaks during should they occur. TKRN Patient request for diagnostic testing 9 11/27/2021 Overview: 01/11/2019 Patient desires nuchal ultrasound. TKRN Acute bilateral low back pain without sciatica 0 05/30/2018 11/27/2021 Hemangioma 02/15/2013 04/09/2015 Benign neoplasm of skin of trunk, except scrotum 02/07/2013 04/09/2015 Chronic, continuous use of opioids 10/17/2012 04/09/2015 Chronic pain 10/17/2012 04/09/2015 Left foot pain 10/17/2012 04/09/2015 Lumbar strain 05/17/2012 04/09/2015 Overview: Per ER report at [facility] 05/06/12-Naproxen. Skin lesion 01/19/2012 04/09/2015 Porokeratosis 06/04/2011 04/09/2015 Supervision of normal first 05/25/2011 05/25/2011 Supervision of other high-risk (V23.89) 05/25/2011 12/20/2012 Papanicolaou smear of cervix with atypical squamous cells of undetermined significance (ASC-US) 08/14/2008 04/09/2015 Cervical high risk human pap illomavirus (HPV) DNA test positive 08/14/2008 04/09/2015 Obesity, unspecified 04/20/2007 04/09/2015 documented as of this encounter (statuses as of 05/18/2022) [facility]05-[facility] History of Past illness Narrative* Problem Noted Date Resolved Date History of asthma 01/11/2019 11/27/2021 Overview: 01/11/2019 Pt has a history of asthma. She uses an inhaler PRN. TKRN Tobacco use in , antepartum 01/11/2019 11/27/2021 Overview: 01/11/2019Pt smokes 3 cigarettes a day, down from 1 ppd. a day. Discussed risks of smoking during . Advised pt to quit. TKRN History of depression 01/11/2019 11/27/2021 Overview: 01/11/2019Pt has a history of depression diagnosed in [address] Moya. She denies any depression. She denies ever having suicidal thoughts. Discussed increased risks of depression during and and importance of reporting the development or worsening of symptoms should they occur. Pt has a history of Herpes. Discussed with pt. importance of reporting any outbreaks during should they occur. TKRN Patient request for diagnostic testing 9 11/27/2021 Overview: 01/11/2019 Patient desires nuchal ultrasound. TKRN Acute bilateral low back pain without sciatica 0 05/30/2018 11/27/2021 Hemangioma 02/15/2013 04/09/2015 Benign neoplasm of skin of trunk, except scrotum 02/07/2013 04/09/2015 Chronic, continuous use of opioids 10/17/2012 04/09/2015 Chronic pain 10/17/2012 04/09/2015 Left foot pain 10/17/2012 04/09/2015 Lumbar strain 05/17/2012 04/09/2015 Overview: Per ER report at [facility] 05/06/12-Naproxen. Skin lesion 01/19/2012 04/09/2015 Porokeratosis 06/04/2011 04/09/2015 Supervision of normal first 05/25/2011 05/25/2011 Supervision of other high-risk (V23.89) 05/25/2011 12/20/2012 Papanicolaou smear of cervix with atypical squamous cells of undetermined significance (ASC-US) 08/14/2008 04/09/2015 Cervical high risk human pap illomavirus (HPV) DNA test positive 08/14/2008 04/09/2015 Obesity, unspecified 04/20/2007 04/09/2015 documented as of this encounter (statuses as of 06/07/2022) [facility]05-[facility] History of Past illness Narrative* Problem Noted Date Resolved Date History of asthma 01/11/2019 11/27/2021 Overview: 01/11/2019 Pt has a history of asthma. She uses an inhaler PRN. TKRN Tobacco use in , antepartum 01/11/2019 11/27/2021 Overview: 01/11/2019Pt smokes 3 cigarettes a day, down from 1 ppd. a day. Discussed risks of smoking during . Advised pt to quit. TKRN History of depression 01/11/2019 11/27/2021 Overview: 01/11/2019Pt has a history of depression diagnosed in [address] Moya. She denies any depression. She denies ever having suicidal thoughts. Discussed increased risks of depression during and and importance of reporting the development or worsening of symptoms should they occur. Pt has a history of Herpes. Discussed with pt. importance of reporting any outbreaks during should they occur. TKRN Patient request for diagnostic testing 9 11/27/2021 Overview: 01/11/2019 Patient desires nuchal ultrasound. TKRN Acute bilateral low back pain without sciatica 0 05/30/2018 11/27/2021 Hemangioma 02/15/2013 04/09/2015 Benign neoplasm of skin of trunk, except scrotum 02/07/2013 04/09/2015 Chronic, continuous use of opioids 10/17/2012 04/09/2015 Chronic pain 10/17/2012 04/09/2015 Left foot pain 10/17/2012 04/09/2015 Lumbar strain 05/17/2012 04/09/2015 Overview: Per ER report at [facility] 05/06/12-Naproxen. Skin lesion 01/19/2012 04/09/2015 Porokeratosis 06/04/2011 04/09/2015 Supervision of normal first 05/25/2011 05/25/2011 Supervision of other high-risk (V23.89) 05/25/2011 12/20/2012 Papanicolaou smear of cervix with atypical squamous cells of undetermined significance (ASC-US) 08/14/2008 04/09/2015 Cervical high risk human pap illomavirus (HPV) DNA test positive 08/14/2008 04/09/2015 Obesity, unspecified 04/20/2007 04/09/2015 documented as of this encounter (statuses as of 11/08/2022) [facility] History of Past illness Narrative* Problem Noted Date Resolved Date History of asthma 01/11/2019 11/27/2021 Overview: 01/11/2019 Pt has a history of asthma. She uses an inhaler PRN. TKRN Tobacco use in , antepartum 01/11/2019 11/27/2021 Overview: 01/11/2019Pt smokes 3 cigarettes a day, down from 1 ppd. a day. Discussed risks of smoking during . Advised pt to quit. TKRN History of depression 01/11/2019 11/27/2021 Overview: 01/11/2019Pt has a history of depression diagnosed in [address] Moya. She denies any depression. She denies ever having suicidal thoughts. Discussed increased risks of depression during and and importance of reporting the development or worsening of symptoms should they occur. Pt has a history of Herpes. Discussed with pt. importance of reporting any outbreaks during should they occur. TKRN Patient request for diagnostic testing 9 11/27/2021 Overview: 01/11/2019 Patient desires nuchal ultrasound. TKRN Acute bilateral low back pain without sciatica 0 05/30/2018 11/27/2021 Hemangioma 02/15/2013 04/09/2015 Benign neoplasm of skin of trunk, except scrotum 02/07/2013 04/09/2015 Chronic, continuous use of opioids 10/17/2012 04/09/2015 Chronic pain 10/17/2012 04/09/2015 Left foot pain 10/17/2012 04/09/2015 Lumbar strain 05/17/2012 04/09/2015 Overview: Per ER report at [facility] 05/06/12-Naproxen. Skin lesion 01/19/2012 04/09/2015 Porokeratosis 06/04/2011 04/09/2015 Supervision of normal first 05/25/2011 05/25/2011 Supervision of other high-risk (V23.89) 05/25/2011 12/20/2012 Papanicolaou smear of cervix with atypical squamous cells of undetermined significance (ASC-US) 08/14/2008 04/09/2015 Cervical high risk human pap illomavirus (HPV) DNA test positive 08/14/2008 04/09/2015 Obesity, unspecified 04/20/2007 04/09/2015 documented as of this encounter (statuses as of 02/01/2023) [facility] History of Past illness Narrative* Problem Noted Date Diagnosed Date Resolved Date History of asthma 01/11/2019 11/27/2021 Overview: 01/11/2019 Pt has a history of asthma. She uses an inhaler PRN. TKRN Tobacco use in , antepartum 01/11/2019 11/27/2021 Overview: 01/11/2019Pt smokes 3 cigarettes a day, down from 1 ppd. a day. Discussed risks of smoking during . Advised pt to quit. TKRN History of depression 01/11/20192021 Overview: 01/11/2019Pt has a history of depression diagnosed in [address] Moya. She denies any depression. She denies ever having suicidal thoughts. Discussed increased risks of depression during and and importance of reporting the development or worsening of symptoms should they occur. Pt has a history of Herpes. Discussed with pt. importance of reporting any outbreaks during should they occur. TKRN Patient request for diagnostic testing 01/11/2019 11/27/2021 Overview: 01/11/2019 Patient desires nuchal ultrasound. TKRN Acute bilateral low back yesika n without sciatica 05/30/2018 11/27/2021 Hemangioma 02/15/2013 04/09/2015 Benign neoplasm of skin of t runk, except scrotum 02/07/2013 04/09/2015 Chronic, continuous use of opioids 10/17/2012 04/09/2015 Chronic pain 10/17/2012 04/09/2015 Left foot pain 10/17/2012 04/09/2015 Lumbar strain 05/17/2012 04/09/2015 Overview: Per ER report at [facility] 05/06/12-Naproxen. Skin lesion 01/19/2012 04/09/2015 Porokeratosis 06/04/2011 04/09/2015 Supervision of normal first 05/25/2011 05/25/2011 Supervision of other high-ri sk (V23.89) 05/25/2011 12/20/2012 Papanicolaou smear of cervix with atypical squamous cells of undetermined significance (ASC-US) 08/14/2008 04/09/2015 Cervical high risk human pap illomavirus (HPV) DNA test positive 08/14/2008 04/09/2015 Obesity, unspecified 04/20/2007 015 documented as of this encounter (statuses as of 03/21/2023) [facility] History of Past illness Narrative* Problem Noted Date Diagnosed Date Resolved Date History of asthma 01/11/2019 11/27/2021 Overview: 01/11/2019 Pt has a history of asthma. She uses an inhaler PRN. TKRN Tobacco use in , antepartum 01/11/2019 11/27/2021 Overview: 01/11/2019Pt smokes 3 cigarettes a day, down from 1 ppd. a day. Discussed risks of smoking during . Advised pt to quit. TKRN History of depression 01/11/20192021 Overview: 01/11/2019Pt has a history of depression diagnosed in [address] Moya. She denies any depression. She denies ever having suicidal thoughts. Discussed increased risks of depression during and and importance of reporting the development or worsening of symptoms should they occur. Pt has a history of Herpes. Discussed with pt. importance of reporting any outbreaks during should they occur. TKRN Patient request for diagnostic testing 01/11/2019 11/27/2021 Overview: 01/11/2019 Patient desires nuchal ultrasound. TKRN Acute bilateral low back yesika n without sciatica 05/30/2018 11/27/2021 Hemangioma 02/15/2013 04/09/2015 Benign neoplasm of skin of t runk, except scrotum 02/07/2013 04/09/2015 Chronic, continuous use of opioids 10/17/2012 04/09/2015 Chronic pain 10/17/2012 04/09/2015 Left foot pain 10/17/2012 04/09/2015 Lumbar strain 05/17/2012 04/09/2015 Overview: Per ER report at [facility] 05/06/12-Naproxen. Skin lesion 01/19/2012 04/09/2015 Porokeratosis 06/04/2011 04/09/2015 Supervision of normal first 05/25/2011 05/25/2011 Supervision of other high-ri sk (V23.89) 05/25/2011 12/20/2012 Papanicolaou smear of cervix with atypical squamous cells of undetermined significance (ASC-US) 08/14/2008 04/09/2015 Cervical high risk human pap illomavirus (HPV) DNA test positive 08/14/2008 04/09/2015 Obesity, unspecified 04/20/2007 015 documented as of this encounter (statuses as of 05/12/2023) [facility] History of Past illness Narrative* Problem Noted Date Diagnosed Date Resolved Date History of asthma 01/11/2019 11/27/2021 Overview: 01/11/2019 Pt has a history of asthma. She uses an inhaler PRN. TKRN Tobacco use in , antepartum 01/11/2019 11/27/2021 Overview: 01/11/2019Pt smokes 3 cigarettes a day, down from 1 ppd. a day. Discussed risks of smoking during . Advised pt to quit. TKRN History of depression 01/11/20192021 Overview: 01/11/2019Pt has a history of depression diagnosed in [address] Moya. She denies any depression. She denies ever having suicidal thoughts. Discussed increased risks of depression during and and importance of reporting the development or worsening of symptoms should they occur. Pt has a history of Herpes. Discussed with pt. importance of reporting any outbreaks during should they occur. TKRN Patient request for diagnostic testing 01/11/2019 11/27/2021 Overview: 01/11/2019 Patient desires nuchal ultrasound. TKRN Acute bilateral low back yesika n without sciatica 05/30/2018 11/27/2021 Hemangioma 02/15/2013 04/09/2015 Benign neoplasm of skin of t runk, except scrotum 02/07/2013 04/09/2015 Chronic, continuous use of opioids 10/17/2012 04/09/2015 Chronic pain 10/17/2012 04/09/2015 Left foot pain 10/17/2012 04/09/2015 Lumbar strain 05/17/2012 04/09/2015 Overview: Per ER report at [facility] 05/06/12-Naproxen. Skin lesion 01/19/2012 04/09/2015 Porokeratosis 06/04/2011 04/09/2015 Supervision of normal first 05/25/2011 05/25/2011 Supervision of other high-ri sk (V23.89) 05/25/2011 12/20/2012 Papanicolaou smear of cervix with atypical squamous cells of undetermined significance (ASC-US) 08/14/2008 04/09/2015 Cervical high risk human pap illomavirus (HPV) DNA test positive 08/14/2008 04/09/2015 Obesity, unspecified 04/20/2007 015 documented as of this encounter (statuses as of 05/24/2023) [facility] History of Past illness Narrative* Problem Noted Date Diagnosed Date Resolved Date History of asthma 01/11/2019 11/27/2021 Overview: 01/11/2019 Pt has a history of asthma. She uses an inhaler PRN. TKRN Tobacco use in , antepartum 01/11/2019 11/27/2021 Overview: 01/11/2019Pt smokes 3 cigarettes a day, down from 1 ppd. a day. Discussed risks of smoking during . Advised pt to quit. TKRN History of depression 01/11/20192021 Overview: 01/11/2019Pt has a history of depression diagnosed in [address] Moya. She denies any depression. She denies ever having suicidal thoughts. Discussed increased risks of depression during and and importance of reporting the development or worsening of symptoms should they occur. Pt has a history of Herpes. Discussed with pt. importance of reporting any outbreaks during should they occur. TKRN Patient request for diagnostic testing 01/11/2019 11/27/2021 Overview: 01/11/2019 Patient desires nuchal ultrasound. TKRN Acute bilateral low back yesika n without sciatica 05/30/2018 11/27/2021 Hemangioma 02/15/2013 04/09/2015 Benign neoplasm of skin of t runk, except scrotum 02/07/2013 04/09/2015 Chronic, continuous use of opioids 10/17/2012 04/09/2015 Chronic pain 10/17/2012 04/09/2015 Left foot pain 10/17/2012 04/09/2015 Lumbar strain 05/17/2012 04/09/2015 Overview: Per ER report at [facility] 05/06/12-Naproxen. Skin lesion 01/19/2012 04/09/2015 Porokeratosis 06/04/2011 04/09/2015 Supervision of normal first 05/25/2011 05/25/2011 Supervision of other high-ri sk (V23.89) 05/25/2011 12/20/2012 Papanicolaou smear of cervix with atypical squamous cells of undetermined significance (ASC-US) 08/14/2008 04/09/2015 Cervical high risk human pap illomavirus (HPV) DNA test positive 08/14/2008 04/09/2015 Obesity, unspecified 04/20/2007 015 documented as of this encounter (statuses as of 05/25/2023) [facility] History of Past illness Narrative* Problem Noted Date Diagnosed Date Resolved Date History of asthma 01/11/2019 11/27/2021 Overview: 01/11/2019 Pt has a history of asthma. She uses an inhaler PRN. TKRN Tobacco use in , antepartum 01/11/2019 11/27/2021 Overview: 01/11/2019Pt smokes 3 cigarettes a day, down from 1 ppd. a day. Discussed risks of smoking during . Advised pt to quit. TKRN History of depression 01/11/20192021 Overview: 01/11/2019Pt has a history of depression diagnosed in [address] Moya. She denies any depression. She denies ever having suicidal thoughts. Discussed increased risks of depression during and and importance of reporting the development or worsening of symptoms should they occur. Pt has a history of Herpes. Discussed with pt. importance of reporting any outbreaks during should they occur. TKRN Patient request for diagnostic testing 01/11/2019 11/27/2021 Overview: 01/11/2019 Patient desires nuchal ultrasound. TKRN Acute bilateral low back yesika n without sciatica 05/30/2018 11/27/2021 Hemangioma 02/15/2013 04/09/2015 Benign neoplasm of skin of t runk, except scrotum 02/07/2013 04/09/2015 Chronic, continuous use of opioids 10/17/2012 04/09/2015 Chronic pain 10/17/2012 04/09/2015 Left foot pain 10/17/2012 04/09/2015 Lumbar strain 05/17/2012 04/09/2015 Overview: Per ER report at [facility] 05/06/12-Naproxen. Skin lesion 01/19/2012 04/09/2015 Porokeratosis 06/04/2011 04/09/2015 Supervision of normal first 05/25/2011 05/25/2011 Supervision of other high-ri sk (V23.89) 05/25/2011 12/20/2012 Papanicolaou smear of cervix with atypical squamous cells of undetermined significance (ASC-US) 08/14/2008 04/09/2015 Cervical high risk human pap illomavirus (HPV) DNA test positive 08/14/2008 04/09/2015 Obesity, unspecified 04/20/2007 015 documented as of this encounter (statuses as of 06/28/2023) [facility] History of Past illness Narrative* Problem Noted Date Diagnosed Date Resolved Date History of asthma 01/11/2019 11/27/2021 Overview: 01/11/2019 Pt has a history of asthma. She uses an inhaler PRN. TKRN Tobacco use in , antepartum 01/11/2019 11/27/2021 Overview: 01/11/2019Pt smokes 3 cigarettes a day, down from 1 ppd. a day. Discussed risks of smoking during . Advised pt to quit. TKRN History of depression 01/11/20192021 Overview: 01/11/2019Pt has a history of depression diagnosed in [address] Moya. She denies any depression. She denies ever having suicidal thoughts. Discussed increased risks of depression during and and importance of reporting the development or worsening of symptoms should they occur. Pt has a history of Herpes. Discussed with pt. importance of reporting any outbreaks during should they occur. TKRN Patient request for diagnostic testing 01/11/2019 11/27/2021 Overview: 01/11/2019 Patient desires nuchal ultrasound. TKRN Acute bilateral low back yesika n without sciatica 05/30/2018 11/27/2021 Hemangioma 02/15/2013 04/09/2015 Benign neoplasm of skin of t runk, except scrotum 02/07/2013 04/09/2015 Chronic, continuous use of opioids 10/17/2012 04/09/2015 Chronic pain 10/17/2012 04/09/2015 Left foot pain 10/17/2012 04/09/2015 Lumbar strain 05/17/2012 04/09/2015 Overview: Per ER report at [facility] 05/06/12-Naproxen. Skin lesion 01/19/2012 04/09/2015 Porokeratosis 06/04/2011 04/09/2015 Supervision of normal first 05/25/2011 05/25/2011 Supervision of other high-ri sk (V23.89) 05/25/2011 12/20/2012 Papanicolaou smear of cervix with atypical squamous cells of undetermined significance (ASC-US) 08/14/2008 04/09/2015 Cervical high risk human pap illomavirus (HPV) DNA test positive 08/14/2008 04/09/2015 Obesity, unspecified 04/20/2007 015 documented as of this encounter (statuses as of 12/15/2023) [facility] History of Past illness Narrative* Problem Noted Date Diagnosed Date Resolved Date History of asthma 01/11/2019 11/27/2021 Overview: 01/11/2019 Pt has a history of asthma. She uses an inhaler PRN. TKRN Tobacco use in , antepartum 01/11/2019 11/27/2021 Overview: 01/11/2019Pt smokes 3 cigarettes a day, down from 1 ppd. a day. Discussed risks of smoking during . Advised pt to quit. TKRN History of depression 01/11/20192021 Overview: 01/11/2019Pt has a history of depression diagnosed in [address] Moya. She denies any depression. She denies ever having suicidal thoughts. Discussed increased risks of depression during and and importance of reporting the development or worsening of symptoms should they occur. Pt has a history of Herpes. Discussed with pt. importance of reporting any outbreaks during should they occur. TKRN Patient request for diagnostic testing 01/11/2019 11/27/2021 Overview: 01/11/2019 Patient desires nuchal ultrasound. TKRN Acute bilateral low back yesika n without sciatica 05/30/2018 11/27/2021 Hemangioma 02/15/2013 04/09/2015 Benign neoplasm of skin of t runk, except scrotum 02/07/2013 04/09/2015 Chronic, continuous use of opioids 10/17/2012 04/09/2015 Chronic pain 10/17/2012 04/09/2015 Left foot pain 10/17/2012 04/09/2015 Lumbar strain 05/17/2012 04/09/2015 Overview: Per ER report at [facility] 05/06/12-Naproxen. Skin lesion 01/19/2012 04/09/2015 Porokeratosis 06/04/2011 04/09/2015 Supervision of normal first 05/25/2011 05/25/2011 Supervision of other high-ri sk (V23.89) 05/25/2011 12/20/2012 Papanicolaou smear of cervix with atypical squamous cells of undetermined significance (ASC-US) 08/14/2008 04/09/2015 Cervical high risk human pap illomavirus (HPV) DNA test positive 08/14/2008 04/09/2015 Obesity, unspecified 04/20/2007 015 documented as of this encounter (statuses as of 12/20/2023) [facility] Annual physical exam- Primary Routine general medical examination at a health care facility Mild intermittent asthma without complication Unspecified asthma Gastroesophageal reflux disease with esophagitis without hemorrhage Mixed hyperlipidemia Recurrent major depressive disorder, remission status unspecified (HCC) History of seizures Personal history of other disorders of nervous system and sense organs Tobacco use Tobacco use disorder Need for COVID-19 vaccine Enlarged thyroid Goiter, unspecified [facility] Enlarged thyroid Goiter, unspecified [facility] Diagnosis Hyperglycemia- Primary Other abnormal glucose [facility] Diagnosis Breast pain, left- Primary Mastodynia Subareolar mass of left breast [facility]* Diagnosis Abscess of breast, left- Primary Inflammatory disease of breast [facility]* Diagnosis Cellulitis of left breast- Primary [facility] noteNo assessment information availableWPremier Health [facility] Work Phone: Evaluation note* Diagnosis Breast abscess- Primary Inflammatory disease of breast Hyperglycemia Other abnormal glucose [facility] Diagnosis Breast abscess- Primary Inflammatory disease of breast Left breast abscess Inflammatory disease of breast [facility] Diagnosis Breast pain, left- Primary Mastodynia Breast abscess Inflammatory disease of breast [facility] Diagnosis Breast abscess- Primary Inflammatory disease of breast [facility] Diagnosis Breast abscess- Primary Inflammatory disease of breast [facility] Diagnosis Periductal mastitis of left breast- Primary Breast abscess Inflammatory disease of breast Abscess of breast Inflammatory disease of breast [facility]* Diagnosis Postoperative pain- Primary Other acute postoperative pain [facility] Diagnosis Postoperative pain- Primary Other acute postoperative pain Abscess of breast Inflammatory disease of breast documented in this encounter [facility] note* Diagnosis Status post incision and drainage- Primary Postoperative pain Other acute postoperative pain [facility]* Diagnosis Status post incision and drainage- Primary Open wound of left breast, subsequent encounter [facility] Diagnosis Status post incision and drainage- Primary Open wound Open wound(s) (multiple) of unspecified site(s), without mention of complication [facility]* Diagnosis Encounter for screening mammogram for breast cancer [facility]* Diagnosis Mild intermittent asthma without complication Unspecified asthma [facility]* Diagnosis Onset Date Resolution Status Delayed wound healing acute Left breast abscess acute Delayed wound healing acute Delayed wound healing acute Delayed wound healing acute Delayed wound healing acute [facility] Work Phone: Evaluation note* Diagnosis Onset Date Resolution Status Delayed wound healing acute Left breast abscess acute Delayed wound healing acute Delayed wound healing acute Delayed wound healing acute Delayed wound healing acute Encounter for routine gynecological examination noneactive [facility] Work Phone: Evaluation note* Diagnosis Mild intermittent asthma without complication Unspecified asthma History of seizures Personal history of other disorders of nervous system and sense organs Gastroesophageal reflux disease with esophagitis without hemorrhage [facility]* Diagnosis Encounter for screening mammogram for breast cancer [facility] Diagnosis Mild intermittent asthma without complication Unspecified asthma documented in this encounter [facility] note* Diagnosis Annual physical exam- Primary Routine general medical examination at a health care facility Mild intermittent asthma without complication Unspecified asthma Gastroesophageal reflux disease with esophagitis without hemorrhage Mixed hyperlipidemia Encounter for immunization Need for other specified prophylactic vaccination against single bacterial disease Tobacco use disorder Generalized convulsive epilepsy (HCC) Generalized convulsive epilepsy without mention of intractable epilepsy Migraine without aura and without status migrainosus, not intractable Migraine without aura, without mention of intractable migraine without mention of status migrainosus Major depressive disorder, remission status unspecified, unspecified whether recurrent [facility] Diagnosis Mild intermittent asthma without complication Unspecified asthma [facility]* Diagnosis Mixed hyperlipidemia History of seizures Personal history of other disorders of nervous system and sense organs [facility] Diagnosis Mild intermittent asthma without complication Unspecified asthma [facility]* Diagnosis Sinusitis, unspecified chronicity, unspecified location- Primary [facility] Diagnosis Encounter for screening mammogram for breast cancer [facility] Diagnosis Onychomadesis of toenail- Primary Other specified disease of nail [facility]* Diagnosis Pre-operative clearance- Primary Preoperative examination, unspecified Neoplasm, brain (HCC) Neoplasm of unspecified nature of brain Rhinosinusitis- Primary Unspecified sinusitis (chronic) [facility] Diagnosis Pre-operative clearance- Primary Preoperative examination, unspecified Neoplasm, brain (HCC) Neoplasm of unspecified nature of brain Mild intermittent asthma without complication Unspecified asthma [facility] Diagnosis Pre-operative clearance- Primary Preoperative examination, unspecified Neoplasm, brain (HCC) Neoplasm of unspecified nature of brain Mass of upper inner quadrant of left breast- Primary At high risk for breast cancer * Assessment & Plan Note - Betsy Jalloh MD - 11/19/2024 8:15 AM EDT Associated Problem(s): Mass of upper inner quadrant of left breast Ms Concepcion is a 44 year old female with history of left breast infection. This is chronic and ongoing since 2021. Had I&D at outside facility in August 2024. Cultures grew staph hominis and schaalia turicensis (formerly actinomyces). She was prescribed 2 month course of amoxicillin and doxcycline but did not tolerate. She continues to have intermittent drainage. Today, no erythema or drainage. Small opening upper inner left breast. Likely fistula. Recommend repeat US and follow up for results. I stressed with importance of smoking cessation for the resolution of chronic breast infections. [facility]* Diagnosis Pre-operative clearance- Primary Preoperative examination, unspecified Neoplasm, brain (HCC) Neoplasm of unspecified nature of brain Mass of upper inner quadrant of left breast- Primary At high risk for breast cancer Acute cough- Primary Head congestion Other diseases of nasal cavity and sinuses [facility] Diagnosis Pre-operative clearance- Primary Preoperative examination, unspecified Neoplasm, brain (HCC) Neoplasm of unspecified nature of brain Mass of upper inner quadrant of left breast- Primary At high risk for breast cancer Mass of upper inner quadrant of left breast- Primary Breast abscess Inflammatory disease of breast At high risk for breast cancer Breast abscess- Primary Inflammatory disease of breast [facility] Diagnosis Pre-operative clearance- Primary Preoperative examination, unspecified Neoplasm, brain (HCC) Neoplasm of unspecified nature of brain Mass of upper inner quadrant of left breast- Primary At high risk for breast cancer Mass of upper inner quadrant of left breast Mass of upper inner quadrant of left breast- Primary Breast abscess Inflammatory disease of breast At high risk for breast cancer [facility] Diagnosis Pre-operative clearance- Primary Preoperative examination, unspecified Neoplasm, brain (HCC) Neoplasm of unspecified nature of brain Mass of upper inner quadrant of left breast- Primary At high risk for breast cancer Mass of upper inner quadrant of left breast- Primary Breast abscess Inflammatory disease of breast At high risk for breast cancer Post-operative pain- Primary Other acute postoperative pain [facility] Diagnosis Pre-operative clearance- Primary Preoperative examination, unspecified Neoplasm, brain (HCC) Neoplasm of unspecified nature of brain Mass of upper inner quadrant of left breast- Primary At high risk for breast cancer Mass of upper inner quadrant of left breast- Primary Breast abscess Inflammatory disease of breast At high risk for breast cancer Breast abscess- Primary Inflammatory disease of breast Post-operative pain Other acute postoperative pain [facility] Diagnosis Pre-operative clearance- Primary Preoperative examination, unspecified Neoplasm, brain (HCC) Neoplasm of unspecified nature of brain Mass of upper inner quadrant of left breast- Primary At high risk for breast cancer Mass of upper inner quadrant of left breast- Primary Breast abscess Inflammatory disease of breast At high risk for breast cancer Left breast abscess- Primary Inflammatory disease of breast Actinomyces infection Actinomycotic infection of unspecified site [facility] Diagnosis Pre-operative clearance- Primary Preoperative examination, unspecified Neoplasm, brain (HCC) Neoplasm of unspecified nature of brain Mass of upper inner quadrant of left breast- Primary At high risk for breast cancer Mass of upper inner quadrant of left breast- Primary Breast abscess Inflammatory disease of breast At high risk for breast cancer * Assessment & Plan Note - Betsy Jalloh MD - 12/26/2024 8:48 AM EDT Associated Problem(s): Breast abscess Ms Concepcion is a 44 year old female with history of left breast infection. This is chronic and ongoing since 2021. Had I&D at outside facility in August 2024. Cultures grew staph hominis and schaalia turicensis (formerly actinomyces). She was prescribed 2 month course of amoxicillin and doxcycline but did not tolerate. She continues to have intermittent drainage. Today, no erythema or drainage. Small opening upper inner left breast. Likely fistula. Left US showed fluid collection with sinus tract. Discussed excision. I stressed with importance of smoking cessation for the resolution of chronic breast infections. Additionally tissue will be sent for cultures and she may need ID consult post op. H&P with pre testing. Surgery. Post op. * Assessment & Plan Note - Betsy Jalloh MD - 11/27/2024 2:09 PM EDT Associated Problem(s): Mass of upper inner quadrant of left breast Ms Concepcion is a 44 year old female with history of left breast infection. This is chronic and ongoing since 2021. Had I&D at outside facility in August 2024. Cultures grew staph hominis and schaalia turicensis (formerly actinomyces). She was prescribed 2 month course of amoxicillin and doxcycline but did not tolerate. Today, US showed 1.5 cm fluid collection upper inner breast. I stressed with importance of smoking cessation for the resolution of chronic breast infections. [facility] Diagnosis Pre-operative clearance- Primary Preoperative examination, unspecified Neoplasm, brain (HCC) Neoplasm of unspecified nature of brain Mass of upper inner quadrant of left breast- Primary At high risk for breast cancer Mass of upper inner quadrant of left breast- Primary Breast abscess Inflammatory disease of breast At high risk for breast cancer Breast abscess- Primary Inflammatory disease of breast Mass of upper inner quadrant of left breast [facility] Work [facility]: Hospital Discharge instructions Additional Instructions Do not drive or operate heavy machinery while taking muscle relaxers. Muscle relaxers can make you confused, lightheaded, and fatigued. They can increase falls. Follow-up with your PCP. Return back to the ED if symptoms change or worsen.[facility] Work Phone: Reason for referral (narrative)* Diagnostic Procedure Only (Routine) - Authorized Specialty Diagnoses / Procedures Referred By Manju ojeda Referred To Contact US IMAGING Diagnoses Enlarged thyroid Procedures US THYROID/PARATHYROID US SOFT TISSUE HEAD & NECK REAL TIME IMGE DOCM Ekta Ley MD [address] [place] [address] Us Imaging Referral ID Status Reason Start Date Expiration Date Visits Requested Visits Authorized [id number] Authorized Auto-Generat ed Referral 11/27/2021 12/27/2022 1 1 * Medication Prior Authorization - Closed Specialty Diagnoses / Procedures Referred By Manju ojeda Referred To Contact Diagnoses Mild intermittent asthma without complication Ekta Ley MD [address] [place] [address] Referral ID Status Reason Start Date Expiration Date Visits Re quested Visits Authorized [id number] Closed 1 1 [facility] for referral (narrative)* Diagnostic Procedure Only (Routine) - Closed Specialty Diagnoses / Procedures [facility] Referred To Contact [facility] Diagnoses Enlarged thyroid Procedures US THYROID/PARATHYROID US SOFT TISSUE HEAD & NECK REAL TIME IMGE Ekta De La Garza MD [address] [place] [address] Us Imaging Referral ID Status Reason Start Date Expiration Date V isits Requested Visits Authorized [id number] Closed Auto-Generate d Referral 11/27/2021 12/27/2022 1 1 [facility] for referral (narrative)* Diagnostic Procedure Only (Routine) - Pending Review Specialty Diagnoses / Procedures [facility] Referred To Contact [facility] IM[facility] Diagnoses Breast pain, left Procedures US BREAST LTD LT US BREAST UNI REAL TIME WITH IMAGE LIMITED Lina Kenny APRN.CNM [address] [place] [address] [facility] [address] [place] [address] Referral ID Status Reason Start Date Expiration Date Visits Requested Visits Authorized [id number] Pending Review Auto-Generat ed Referral 12/23/2021 01/15/2023 1 1 * Diagnostic Procedure Only (Routine) - Authorized Specialty Diagnoses / Procedures [facility] Referred To Contact [facility] IM[facility] Diagnoses Breast pain, left Procedures SARAH DIAGNOSTIC BILAT DIAGNOSTIC MAMMOGRAPHY COMPUTER-AIDED DETCJ BI Lina Kenny APRN.CNM [address] [place] [address] [facility] [address] [place] [address] Referral ID Status Reason Start Date Expiration Date Visits Requested Visits Authorized [id number] Authorized Auto-Generat ed Referral 12/16/2021 01/15/2023 1 1 [facility] for referral (narrative)* Diagnostic Procedure Only (Routine) - Pending Review Specialty Diagnoses / Procedures Referred By Manju ojeda Referred To Contact BR IMAGING Diagnoses Encounter for screening mammogram for breast cancer Procedures SARAH SCREENING SCREENING MAMMOGRAPHY BI 2-VIEW BREAST INC Ekta Damico MD [address] [place] [address] [facility] [address] [place] [address] Referral ID Status Reason Start Date Expiration Date Visits Requested Visits Authorized [id number] Pending Review Auto-Generat ed Referral 04/07/2022 05/07/2023 1 1 [facility] for referral (narrative)* Diagnostic Procedure Only (Routine) - Pending Review Specialty Diagnoses / Procedures Referred By Manju ojeda Referred To Contact BR IMAGING Diagnoses Encounter for screening mammogram for breast cancer Procedures SARAH SCREENING SCREENING MAMMOGRAPHY BI 2-VIEW BREAST INC Ekta Damico MD [facility] [place] [address] [facility] [address] [place] [address] Referral ID Status Reason Start Date Expiration Date Visits Requested Visits Authorized [id number] Pending Review Auto-Generat ed Referral 03/16/2023 04/14/2024 1 1 [facility] for referral (narrative)* Diagnostic Procedure Only (Routine) - Pending Review Specialty Diagnoses / Procedures Referred By Manju ojeda Referred To Contact [facility] Diagnoses Encounter for screening mammogram for breast cancer Procedures SARAH SCREENING W LUIS ALFREDO SCREENING DIGITAL BREAST TOMOSYNTHESIS BI SCREENING MAMMOGRAPHY BI 2-VIEW BREAST INC Ekta Damico MD [address] [place] [id number] [facility] [address] [place] [address] Referral ID Status Reason Start Date Expiration Date Visits Requested Visits Authorized [id number] Pending Review Auto-Generat ed Referral 02/22/2024 03/23/2025 1 1 [facility] for referral (narrative)No reason for referral information availableWPremier [facility] Work Phone: Reason for visit Narrative* Auth/Cert Specialty Diagnoses / Procedures Referred By Manju ojeda Referred To Contact Diagnoses Abscess of breast Procedures INCISION & DRAINAGE ABSCESS SIMPLE/SINGLE ABSCESS I&D SIMPLE Ld Surgery [address] [place] [address] Referral ID Status Reason Start Date Expiration Date Visits Re quested Visits Authorized [id number] 1 1 [facility] for visit Narrative* Diagnostic Procedure Only (Routine) - Closed Specialty Diagnoses / Procedures Referred By Manju ojeda Referred To Contact [facility] Diagnoses Mass of upper inner quadrant of left breast Procedures US BREAST LTD LEFT US BREAST UNI REAL TIME WITH IMAGE LIMITED Betsy Jalloh MD [address] [place] [address] Phone: tel: fax: [facility] [address] [place] [address] Referral ID Status Reason Start Date Expiration Date V isits Requested Visits Authorized [id number] Closed Auto-Generate d Referral 11/06/2024 12/06/2025 1 1 [facility] Summary Purpose Family History No Family History Records Found Relationship Condition Age at Onset Recorded Date/T jeffrey mother Malignant neoplasm of uterus Unknown Hypertension Unknown Hyperlipidemia Unknown father Hyperlipidemia Unknown Pulmonary embolism with infarction Unknow n Advance Directives No Advanced Directives Records FoundDocuments on File Type Date Recorded 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 Advance Directive(s) 02/02/2011 10:55 AM Documents on File Type Date Recorded 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 Advance Directive(s) 02/02/2011 10:55 AM Advance Directive Response Recorded Date/ Time Advance Directives No September 09, 2016 3:58pm Living Will No December 18, 2021 7:10pm Power of Compound Finisher No December 18 7:10pm Documents on File Type Date Recorded 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 Advance Directive(s) 12/30/2021 12:51 PM Advance Directive(s) 02/02/2011 10:55 AM Advance Directive Response Recorded Date/ Time Advance Directives No September 09, 2016 3:58pm Living Will No March 07, 2022 3 :51pm Power of Compound Finisher No March 07, 2022 3:51pm Documents on File Type Date Recorded 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 Advance Directive(s) 03/11/2022 11:21 AM Advance Directive(s) 12/30/2021 12:51 PM Advance Directive(s) 02/02/2011 10:55 AM Documents on File Type Date Recorded 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 Advance Directive(s) 03/11/2022 11:21 AM Advance Directive(s) 12/30/2021 12:51 PM Advance Directive(s) 02/02/2011 10:55 AM Advance Directive Response Recorded Date/ Time Advance Directives No September 09, 2016 2:58pm Living Will No March 07, 2022 2 :51pm Power of Compound Finisher No March 07, 2022 2:51pm Advance Directive Response Recorded Date/ Time Advance Directives No September 09, 2016 3:58pm Living Will No June 12 3:31pm Power of Compound Finisher No June 12 023 3:31pm Advance Directive Response Recorded Date/ Time Advance Directives No August 06, 2024 9:15am Living Will No November 29, 2024 12:22pm Do you have a Healthcare Power of Compound Finisher? No November 29, 2024 12:22pm Reason for Referral Specialty Diagnoses / Procedures Referred By Manju t Referred To Contact General Surgery Diagnoses Abscess of breast, left Procedures CONSULT TO GENERAL SURGERY OFFICE/OUTPATIENT NEW HIGH MDM 60-74 MINUTES Yani Puente APRN.BRAKE ADJUSTER [address] [place] [address] Referral ID Status Reason Start Date Expiration Date Visits Requested Visits Authorized [id number] Authorized PCP Requested Referral 12/17/2021 12/17/2022 1 1 Specialty Diagnoses / Procedures Referred By Contac t Referred To Contact Diagnoses Mild intermittent asthma without complication Demetrice Doyle APRN.BRAKE ADJUSTER [address] [place] [address] Referral ID Status Reason Start Date Expiration Date Visits Re quested Visits Authorized [id number] Closed 1 1 Specialty Diagnoses / Procedures Referred By Contac t Referred To Contact Diagnoses Mild intermittent asthma without complication Edgard Gómez, REZA.BRAKE ADJUSTER [address] [place] [address] Referral ID Status Reason Start Date Expiration Date Visits Re quested Visits Authorized [id number] Closed 1 1 Chief Complaint and Reason for Visit Chief Complaint BACK BREAST SWELLING Chief Complaint BREAST SWELLING LOWER BACK PAIN Chief Complaint 2ND OPINION R BREAST ABCESS WOUND CHECK BREAST/WOUND CHECK BREAST/WOUND CHECK BREAST SWELLING, ABCESS LEAKAGE Reason for Visit Delayed wound healin g Left breast abscess Delayed wound healing Delayed wound healing Delayed wound healing Delayed wound healing Chief Complaint 2ND OPINION R BREAST ABCESS WOUND CHECK BREAST/WOUND CHECK BREAST/WOUND CHECK BREAST SWELLING, ABCESS LEAKAGE 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) Reason for Visit Delayed wound healin g Left breast abscess Delayed wound healing Delayed wound healing Delayed wound healing Delayed wound healing Encounter for routine gynecological examination Chief Complaint back pain migraine Chief Complaint Admit Date BREAST CYST August 06, 2024 8 :36am breast chk August 14, 2024 8:41am BREAST CHECK September 11, 2024 2: 42pm BACK PAIN September 18, 2024 5 :22pm BACK November 29, 2024 11: 54am Reason for Visit Admit Date Left breast abscess August 06, 2024 8 :36am Left breast abscess August 14, 2024 8:41am Left breast abscess September 11, 2024 2: 42pm Medications Administered Section Inactive Administered Medications - up to 3 most recent administrations Medication Order MAR Action Action Date Dose Rate Site albuterol HFA 90 mcg/actuation 2 Puff (PROVENTIL HFA, VENTOLIN HFA) 2 Puff, INHALATION, POST-OP PRN, Starting on Tue03/11/22 at 1559, Until Tue03/12/22 at 0303, wheezing/shortness of breath, SHAKE WELL BEFORE USING -Pharmaceutical Waste: Aerosol- Given 03/11/2022 4:00 PM EDT 2 Puffs ceFAZolin 2 g in D5W 100 mL (ANCEF) 2 g, INTRAVENOUS, at 200 mL/hr, Administer over 30 Minutes, PRE-OP ONCE, 1 dose, On Tue03/11/22 at 1130, General Cases PRE-OP ANTIBIOTIC ADMINISTER ONLY IN SURGICAL AREA DO NOT ADMINSTER ON THE FLOOR Refrigerate, Please document the antimicrobial indication: Prophylaxis, Preprocedure New Bag/Syringe/Bottle 03/11/2022 12:53 PM EDT 2 g 200 mL/hr HYDROcodone 5 mg - acetaminophen 325 mg tablet (NORCO) 1-2 tablet, ORAL, EVERY 4 HOURS NEEDED, Starting on Lizette 03/11/22 at 1516, Until Tue03/12/22 at 0303, Mild Pain (1-3) - Enteral, Moderate Pain (4-6) - Enteral Given 03/11/2022 3:52 PM EDT 1 tablet lactated ringers iv infusion 5-30 mL/hr, INTRAVENOUS, CONTINUOUS, Starting on Lizette 03/11/22 at 1130, Until Lizette 03/11/22 at 1129, Preprocedure New Bag/Syringe/Bottle 03/11/2022 11:58 AM EDT 30 mL/hr 30 mL/hr Additional Source Comments INFORMATION SOURCE (unrecogn ized section and content) DATE CREATED AUTHOR 02/28/2018 [facility] DATE CREATED AUTHOR AUTHOR'S ORGANIZ ATION 01/05/2022 [facility] DATE CREATED AUTHOR AUTHOR'S ORGANIZ ATION 11/03/2023 [facility] ([place]) DATE CREATED AUTHOR AUTHOR'S ORGANIZ ATION 12/08/2024 [facility] DATE CREATED AUTHOR AUTHOR'S ORGANIZ ATION 12/13/2024 [facility] DATE CREATED AUTHOR AUTHOR'S ORGANIZ ATION 01/14/2025 [facility] Source Comments (unrecognize d section and content) In the event this informatio n is protected by the Federal Confidentiality of Alcohol and Drug Abuse Patient Records regulations: The Federal rules restrict any use of the information to criminally investigate or prosecute any alcohol or drug abuse patient.[facility] the event this information is protected by the Federal Confidentiality of Alcohol and Drug Abuse Patient Records regulations: The Federal rules restrict any use of the information to criminally investigate or prosecute any alcohol or drug abuse patient.[facility] the event this information is protected by the Federal Confidentiality of Alcohol and Drug Abuse Patient Records regulations: The Federal rules restrict any use of the information to criminally investigate or prosecute any alcohol or drug abuse patient.[facility] HospitalIn the event this information is protected by the Federal Confidentiality of Alcohol and Drug Abuse Patient Records regulations: The Federal rules restrict any use of the information to criminally investigate or prosecute any alcohol or drug abuse patient.[facility] HospitalIn the event this information is protected by the Federal Confidentiality of Alcohol and Drug Abuse Patient Records regulations: The Federal rules restrict any use of the information to criminally investigate or prosecute any alcohol or drug abuse patient.[facility] HospitalIn the event this information is protected by the Federal Confidentiality of Alcohol and Drug Abuse Patient Records regulations: The Federal rules restrict any use of the information to criminally investigate or prosecute any alcohol or drug abuse patient.[facility] HospitalIn the event this information is protected by the Federal Confidentiality of Alcohol and Drug Abuse Patient Records regulations: The Federal rules restrict any use of the information to criminally investigate or prosecute any alcohol or drug abuse patient.[facility] HospitalIn the event this information is protected by the Federal Confidentiality of Alcohol and Drug Abuse Patient Records regulations: The Federal rules restrict any use of the information to criminally investigate or prosecute any alcohol or drug abuse patient.[facility] HospitalIn the event this information is protected by the Federal Confidentiality of Alcohol and Drug Abuse Patient Records regulations: The Federal rules restrict any use of the information to criminally investigate or prosecute any alcohol or drug abuse patient.[facility] HospitalIn the event this information is protected by the Federal Confidentiality of Alcohol and Drug Abuse Patient Records regulations: The Federal rules restrict any use of the information to criminally investigate or prosecute any alcohol or drug abuse patient.[facility] HospitalIn the event this information is protected by the Federal Confidentiality of Alcohol and Drug Abuse Patient Records regulations: The Federal rules restrict any use of the information to criminally investigate or prosecute any alcohol or drug abuse patient.[facility] HospitalIn the event this information is protected by the Federal Confidentiality of Alcohol and Drug Abuse Patient Records regulations: The Federal rules restrict any use of the information to criminally investigate or prosecute any alcohol or drug abuse patient.[facility] HospitalIn the event this information is protected by the Federal Confidentiality of Alcohol and Drug Abuse Patient Records regulations: The Federal rules restrict any use of the information to criminally investigate or prosecute any alcohol or drug abuse patient.[facility] HospitalIn the event this information is protected by the Federal Confidentiality of Alcohol and Drug Abuse Patient Records regulations: The Federal rules restrict any use of the information to criminally investigate or prosecute any alcohol or drug abuse patient.[facility] HospitalIn the event this information is protected by the Federal Confidentiality of Alcohol and Drug Abuse Patient Records regulations: The Federal rules restrict any use of the information to criminally investigate or prosecute any alcohol or drug abuse patient.[facility] HospitalIn the event this information is protected by the Federal Confidentiality of Alcohol and Drug Abuse Patient Records regulations: The Federal rules restrict any use of the information to criminally investigate or prosecute any alcohol or drug abuse patient.[facility] HospitalIn the event this information is protected by the Federal Confidentiality of Alcohol and Drug Abuse Patient Records regulations: The Federal rules restrict any use of the information to criminally investigate or prosecute any alcohol or drug abuse patient.[facility] HospitalIn the event this information is protected by the Federal Confidentiality of Alcohol and Drug Abuse Patient Records regulations: The Federal rules restrict any use of the information to criminally investigate or prosecute any alcohol or drug abuse patient.[facility] HospitalIn the event this information is protected by the Federal Confidentiality of Alcohol and Drug Abuse Patient Records regulations: The Federal rules restrict any use of the information to criminally investigate or prosecute any alcohol or drug abuse patient.[facility] HospitalIn the event this information is protected by the Federal Confidentiality of Alcohol and Drug Abuse Patient Records regulations: The Federal rules restrict any use of the information to criminally investigate or prosecute any alcohol or drug abuse patient.[facility] HospitalIn the event this information is protected by the Federal Confidentiality of Alcohol and Drug Abuse Patient Records regulations: The Federal rules restrict any use of the information to criminally investigate or prosecute any alcohol or drug abuse patient.[facility] HospitalIn the event this information is protected by the Federal Confidentiality of Alcohol and Drug Abuse Patient Records regulations: The Federal rules restrict any use of the information to criminally investigate or prosecute any alcohol or drug abuse patient.[facility] HospitalIn the event this information is protected by the Federal Confidentiality of Alcohol and Drug Abuse Patient Records regulations: The Federal rules restrict any use of the information to criminally investigate or prosecute any alcohol or drug abuse patient.[facility] HospitalIn the event this information is protected by the Federal Confidentiality of Alcohol and Drug Abuse Patient Records regulations: The Federal rules restrict any use of the information to criminally investigate or prosecute any alcohol or drug abuse patient.[facility] HospitalIn the event this information is protected by the Federal Confidentiality of Alcohol and Drug Abuse Patient Records regulations: The Federal rules restrict any use of the information to criminally investigate or prosecute any alcohol or drug abuse patient.[facility] HospitalIn the event this information is protected by the Federal Confidentiality of Alcohol and Drug Abuse Patient Records regulations: The Federal rules restrict any use of the information to criminally investigate or prosecute any alcohol or drug abuse patient.[facility] HospitalIn the event this information is protected by the Federal Confidentiality of Alcohol and Drug Abuse Patient Records regulations: The Federal rules restrict any use of the information to criminally investigate or prosecute any alcohol or drug abuse patient.[facility] HospitalIn the event this information is protected by the Federal Confidentiality of Alcohol and Drug Abuse Patient Records regulations: The Federal rules restrict any use of the information to criminally investigate or prosecute any alcohol or drug abuse patient.[facility] HospitalIn the event this information is protected by the Federal Confidentiality of Alcohol and Drug Abuse Patient Records regulations: The Federal rules restrict any use of the information to criminally investigate or prosecute any alcohol or drug abuse patient.[facility] HospitalIn the event this information is protected by the Federal Confidentiality of Alcohol and Drug Abuse Patient Records regulations: The Federal rules restrict any use of the information to criminally investigate or prosecute any alcohol or drug abuse patient.[facility] HospitalIn the event this information is protected by the Federal Confidentiality of Alcohol and Drug Abuse Patient Records regulations: The Federal rules restrict any use of the information to criminally investigate or prosecute any alcohol or drug abuse patient.[facility] HospitalIn the event this information is protected by the Federal Confidentiality of Alcohol and Drug Abuse Patient Records regulations: The Federal rules restrict any use of the information to criminally investigate or prosecute any alcohol or drug abuse patient.[facility] HospitalIn the event this information is protected by the Federal Confidentiality of Alcohol and Drug Abuse Patient Records regulations: The Federal rules restrict any use of the information to criminally investigate or prosecute any alcohol or drug abuse patient.[facility] HospitalIn the event this information is protected by the Federal Confidentiality of Alcohol and Drug Abuse Patient Records regulations: The Federal rules restrict any use of the information to criminally investigate or prosecute any alcohol or drug abuse patient.[facility] HospitalIn the event this information is protected by the Federal Confidentiality of Alcohol and Drug Abuse Patient Records regulations: The Federal rules restrict any use of the information to criminally investigate or prosecute any alcohol or drug abuse patient.[facility] HospitalIn the event this information is protected by the Federal Confidentiality of Alcohol and Drug Abuse Patient Records regulations: The Federal rules restrict any use of the information to criminally investigate or prosecute any alcohol or drug abuse patient.[facility] HospitalIn the event this information is protected by the Federal Confidentiality of Alcohol and Drug Abuse Patient Records regulations: The Federal rules restrict any use of the information to criminally investigate or prosecute any alcohol or drug abuse patient.[facility] HospitalIn the event this information is protected by the Federal Confidentiality of Alcohol and Drug Abuse Patient Records regulations: The Federal rules restrict any use of the information to criminally investigate or prosecute any alcohol or drug abuse patient.[facility] HospitalIn the event this information is protected by the Federal Confidentiality of Alcohol and Drug Abuse Patient Records regulations: The Federal rules restrict any use of the information to criminally investigate or prosecute any alcohol or drug abuse patient.[facility] HospitalIn the event this information is protected by the Federal Confidentiality of Alcohol and Drug Abuse Patient Records regulations: The Federal rules restrict any use of the information to criminally investigate or prosecute any alcohol or drug abuse patient.[facility] HospitalIn the event this information is protected by the Federal Confidentiality of Alcohol and Drug Abuse Patient Records regulations: The Federal rules restrict any use of the information to criminally investigate or prosecute any alcohol or drug abuse patient.[facility] HospitalIn the event this information is protected by the Federal Confidentiality of Alcohol and Drug Abuse Patient Records regulations: The Federal rules restrict any use of the information to criminally investigate or prosecute any alcohol or drug abuse patient.[facility] HospitalIn the event this information is protected by the Federal Confidentiality of Alcohol and Drug Abuse Patient Records regulations: The Federal rules restrict any use of the information to criminally investigate or prosecute any alcohol or drug abuse patient.[facility] HospitalIn the event this information is protected by the Federal Confidentiality of Alcohol and Drug Abuse Patient Records regulations: The Federal rules restrict any use of the information to criminally investigate or prosecute any alcohol or drug abuse patient.[facility] HospitalIn the event this information is protected by the Federal Confidentiality of Alcohol and Drug Abuse Patient Records regulations: The Federal rules restrict any use of the information to criminally investigate or prosecute any alcohol or drug abuse patient.[facility] HospitalIn the event this information is protected by the Federal Confidentiality of Alcohol and Drug Abuse Patient Records regulations: The Federal rules restrict any use of the information to criminally investigate or prosecute any alcohol or drug abuse patient.[facility] HospitalIn the event this information is protected by the Federal Confidentiality of Alcohol and Drug Abuse Patient Records regulations: The Federal rules restrict any use of the information to criminally investigate or prosecute any alcohol or drug abuse patient.[facility] HospitalIn the event this information is protected by the Federal Confidentiality of Alcohol and Drug Abuse Patient Records regulations: The Federal rules restrict any use of the information to criminally investigate or prosecute any alcohol or drug abuse patient.[facility] HospitalIn the event this information is protected by the Federal Confidentiality of Alcohol and Drug Abuse Patient Records regulations: The Federal rules restrict any use of the information to criminally investigate or prosecute any alcohol or drug abuse patient.[facility] HospitalIn the event this information is protected by the Federal Confidentiality of Alcohol and Drug Abuse Patient Records regulations: The Federal rules restrict any use of the information to criminally investigate or prosecute any alcohol or drug abuse patient.[facility] HospitalIn the event this information is protected by the Federal Confidentiality of Alcohol and Drug Abuse Patient Records regulations: The Federal rules restrict any use of the information to criminally investigate or prosecute any alcohol or drug abuse patient.[facility] HospitalIn the event this information is protected by the Federal Confidentiality of Alcohol and Drug Abuse Patient Records regulations: The Federal rules restrict any use of the information to criminally investigate or prosecute any alcohol or drug abuse patient.[facility] HospitalIn the event this information is protected by the Federal Confidentiality of Alcohol and Drug Abuse Patient Records regulations: The Federal rules restrict any use of the information to criminally investigate or prosecute any alcohol or drug abuse patient.[facility] HospitalIn the event this information is protected by the Federal Confidentiality of Alcohol and Drug Abuse Patient Records regulations: The Federal rules restrict any use of the information to criminally investigate or prosecute any alcohol or drug abuse patient.[facility] HospitalIn the event this information is protected by the Federal Confidentiality of Alcohol and Drug Abuse Patient Records regulations: The Federal rules restrict any use of the information to criminally investigate or prosecute any alcohol or drug abuse patient.[facility] Reason for Visit (unrecogniz ed section and content) Reason Comments Physical med refills Reason Comments Radiology US Specialty Diagnoses / Procedures Referred By Contac t Referred To Contact US IMAGING Diagnoses Enlarged thyroid Procedures US THYROID/PARATHYROID US SOFT TISSUE HEAD & NECK REAL TIME IMGE Ekta De La Garza MD [address] [place] [address] Us Imaging Referral ID Status Reason Start Date Expiration Date V isits Requested Visits Authorized [id number] Closed Auto-Generate d Referral 11/27/2021 12/27/2022 1 1 Reason Comments Results Reason Comments Breast Problem Reason Comments Breast Problem Reason Comments FYI-No Action Needed Reason Comments Consult Reason Comments Patient Question Reason Comments ER F/U unable to leave mess age mailbox full Reason Comments Follow Up Left Breast Reason Comments Pain open surgical site t o leftt breast after surgey Reason Comments Follow Up Left breast abscess Reason Comments Release Of Medical Records Request for m edical records to be faxed to [facility] Reason Comments Follow Up I&D breast abscess, left Reason Comments Follow Up left breast mass Reason Comments Follow Up right breast abscess Reason Comments Follow Up left breast surgery Reason Comments Follow Up left breast follow u p Reason Onset Date Comments Refill Request 05/13/2022 Reason Comments Medication Question Reason Onset Date Comments Refill Request 06/07/2022 Reason Onset Date Comments Refill Request 11/05/2022 Refill Request 11/08/2022 Reason Onset Date Comments Refill Request 01/28/2023 Reason Onset Date Comments Refill Request Refill Request 05/10/2023 Reason Comments Yearly Exam Reason Comments Refill Request Reason Comments Headache Reason Onset Date Comments Refill Request 12/14/2023 Reason Comments medication request Reason Comments Sinus Problem Pressure, pain in si nuses, headache, sneezing, x today Reason Onset Date Comments Refill Request 03/28/2024 Reason Comments Established Patient Ingrown Toenail Reason Comments Sinusitis X 1 week Reason Onset Date Comments Refill Request 07/03/2024 Reason Comments New Patient Left breast cyst Reason Comments Cough Fatigue Head Congestion Reason Comments Preparations For Surgery Reason Comments Post Op Reason Comments Breast abscess Left Breast Reason Comments Follow Up Tests Results Reason Comments Follow Up Care Teams (unrecognized sec tion and content) Bioinformatics Analyst Relationship Specialty Start Date End Date Ekta Ley MD [address] [place] [address] PCP - General Family Practice 01/04/18 Bioinformatics Analyst Relationship Specialty Start Date End Date Ekta Ley MD [address] [facility] [place] [place] [address] PCP - General Family Practice 01/04/18 Bioinformatics Analyst Relationship Specialty Start Date End Date Ekta Ley MD [address] [facility] [place] [place] [address] PCP - General Family Practice 01/04/18 Bioinformatics Analyst Relationship Specialty Start Date End Date Ekta Ley MD [address] [facility] [place] [address] PCP - General Family Practice 01/04/18 Bioinformatics Analyst Relationship Specialty Start Date End Date Ekta Ley MD [address] [facility] [place] [address] PCP - General Family Practice 01/04/18 Bioinformatics Analyst Relationship Specialty Start Date End Date Ekta Ley MD [address] [facility] [place] [address] PCP - General Family Practice 01/04/18 Bioinformatics Analyst Relationship Specialty Start Date End Date Ekta Ley MD [address] [facility] [place] [address] PCP - General Family Practice 01/04/18 Bioinformatics Analyst Relationship Specialty Start Date End Date Ekta Ley MD [address] [facility] [place] [address] PCP - General Family Practice 01/04/18 Bioinformatics Analyst Relationship Specialty Start Date End Date Ekta Ley MD [address] [facility] [place] [address] PCP - General Family Practice 01/04/18 Bioinformatics Analyst Relationship Specialty Start Date End Date Ekta Ley MD [address] [facility] [place] [address] PCP - General Family Practice 01/04/18 Bioinformatics Analyst Relationship Specialty Start Date End Date Ekta Ley MD [address] [facility] [place] [address] PCP - General Family Practice 01/04/18 Bioinformatics Analyst Relationship Specialty Start Date End Date Ekta Ley MD [address] [facility] [place] [address] PCP - General Family Practice 01/04/18 Bioinformatics Analyst Relationship Specialty Start Date End Date Ekta Ley MD [address] [facility] [place] [address] PCP - General Family Practice 01/04/18 Bioinformatics Analyst Relationship Specialty Start Date End Date Ekta Ley MD [address] [facility] [place] [address] PCP - General Family Practice 01/04/18 Bioinformatics Analyst Relationship Specialty Start Date End Date Ekta Ley MD [address] [facility] [place] [address] PCP - General Family Practice 01/04/18 Bioinformatics Analyst Relationship Specialty Start Date End Date Ekta Ley MD [address] [facility] [place] [address] PCP - General Family Medicine 01/04/18 Bioinformatics Analyst Relationship Specialty Start Date End Date Ekta Ley MD [address] [facility] [place] [address] PCP - General Family Medicine 01/04/18 Bioinformatics Analyst Relationship Specialty Start Date End Date Ekta Ley MD [address] [facility] [place] [address] PCP - General Family Medicine 01/04/18 Bioinformatics Analyst Relationship Specialty Start Date End Date Ekta Ley MD [address] [place] [address] PCP - General Family Medicine 01/04/18 Bioinformatics Analyst Relationship Specialty Start Date End Date Ekta Ley MD [address] [place] [address] PCP - General Family Medicine 01/04/18 Bioinformatics Analyst Relationship Specialty Start Date End Date Ekta Ley MD [address] [place] [address] PCP - General Family Medicine 01/04/18 Bioinformatics Analyst Relationship Specialty Start Date End Date Ekta Ley MD [address] [place] [address] PCP - General Family Medicine 01/04/18 Team Status: Active Member Role Status Dates No Primary Care Physician Family Provider Active Dr. Adrian Ley MD Primary Care Provider Acti ve Team Status: Inactive Member Role Status Dates Dr. Adrian Ley MD Primary Care Provider Acti ve Dr. Romario Samuel MD Attending Provider, Emergency [facility] Active Team Status: Inactive Member Role Status Dates Dr. Adrian Ley MD Primary Care Provider Acti ve Ed Physician Provider Emergency Provider Active Bioinformatics Analyst Relationship Specialty Start Date End Date Ekta Ley MD [address] [facility] [place] [place] [address] PCP - General Family Medicine 01/04/18 Bioinformatics Analyst Relationship Specialty Start Date End Date Ekta Ley MD [address] [place] [address] PCP - General Family Medicine 01/04/18 Bioinformatics Analyst Relationship Specialty Start Date End Date Ekta Ley MD [address] [facility] [place] [address] PCP - General Family Medicine 01/04/18 Bioinformatics Analyst Relationship Specialty Start Date End Date Ekta Ley MD [address] [facility] [place] [address] PCP - General Family Medicine 01/04/18 Bioinformatics Analyst Relationship Specialty Start Date End Date Ekta Ley MD [address] [place] [address] PCP - General Family Medicine 01/04/18 Bioinformatics Analyst Relationship Specialty Start Date End Date Ekta Ley MD [address] [facility] [place] [address] PCP - General Family Medicine 01/04/18 Bioinformatics Analyst Relationship Specialty Start Date End Date Ekta Ley MD [address] [facility] [place] [address] PCP - General Family Medicine 01/04/18 Podlogar, REZA Suresh.BRAKE ADJUSTER [address] [facility] [place] [address] [employer] Family Medicine 08/11/24 Bioinformatics Analyst Relationship Specialty Start Date End Date Ekta Ley MD [address] [facility] [place] [address] PCP - General Family Medicine 01/04/18 Podlogar, REZA Suresh.BRAKE ADJUSTER [address] [facility] [place] [address] [facility] 08/11/24 Bioinformatics Analyst Relationship Specialty Start Date End Date Ekta Ley MD [address] [place], [place] [address] [phone] PCP - General Family Medicine 01/04/18 Podlogar, Demetrice LIQUOR GALLERY OPERATOR.BRAKE ADJUSTER [address] [place] [address] [employer] Family Medicine 08/11/24 Edgard Gómez LIQUOR GALLERY OPERATOR.BRAKE ADJUSTER [address] [place] [address] [facility] 11/16/24 Bioinformatics Analyst Relationship Specialty Start Date End Date Ekta Ley MD [address] [place] [address] PCP - General Family Medicine 01/04/18 Podlogar, Demetrice LIQUOR GALLERY OPERATOR.BRAKE ADJUSTER [address] [place] [address] [facility] Medicine 08/11/24 Edgard Gómez LIQUOR GALLERY OPERATOR.BRAKE ADJUSTER [address] [place] [address] [facility] Medicine 11/16/24 Bioinformatics Analyst Relationship Specialty Start Date End Date Ekta Ley MD [address] [place] [address] PCP - General Family Medicine 01/04/18 Podlogar, Demetrice, LIQUOR GALLERY OPERATOR.BRAKE ADJUSTER [address] [place] [address] [facility] Medicine 08/11/24 Edgard Gómez, LIQUOR GALLERY OPERATOR.BRAKE ADJUSTER [address] [place], [place] [address] [facility] 11/26/24 Bioinformatics Analyst Relationship Specialty Start Date End Date Ekta Ley MD [address] [place], [place] [address] PCP - General Family Medicine 01/04/18 PodlogarDemetrice, LIQUOR GALLERY OPERATOR.BRAKE ADJUSTER [address] [place], [place] [address] [facility] Medicine 08/11/24 Edgard Gómez LIQUOR GALLERY OPERATOR.BRAKE ADJUSTER [address] [place], [place] [address] [facility] 11/26/24 Bioinformatics Analyst Relationship Specialty Start Date End Date Ekta Ley MD [address] [place], [place] [address] PCP - General Family Medicine 01/04/18 Podlogar, Demetrice, LIQUOR GALLERY OPERATOR.BRAKE ADJUSTER [address] [place], [place] [address] [facility] Medicine 08/11/24 Edgard Gómez, LIQUOR GALLERY OPERATOR.BRAKE ADJUSTER [address] [place], [place] [address] [facility] 11/26/24 Team Status: Active Member Role Status Dates Dr. Adrian Ley MD Primary Care Provider Acti ve Team Status: Inactive Member Role Status Dates Dr. Adrian Ley MD Primary Care Provider Acti ve Start: August 06, 2024 End: August 06, 2024 Dr. Adrian Ley MD Referring Provider Active Start: August 06, 2024 End: August 06, 2024 Betsy DOLL PA-C Attending Provider Active Start: August 06, 2024 End: August 06, 2024 Team Status: Inactive Member Role Status Dates Dr. Adrian Ley MD Primary Care Provider Acti ve Start: August 06, 2024 End: August 06, 2024 Betsy DOLL PA-C Attending Provider Active Start: August 06, 2024 End: August 06, 2024 Betsy DOLL PA-C Referring Provider Active Start: August 06, 2024 End: August 06, 2024 Team Status: Inactive Member Role Status Dates Dr. Adrian Ley MD Primary Care Provider Acti ve Start: August 14, 2024 End: August 14, 2024 Dr. Adrian Ley MD Referring Provider Active Start: August 14, 2024 End: August 14, 2024 Dr. Darian Goyal MD Attending Provider Active Start: August 14, 2024 End: August 14, 2024 Team Status: Inactive Member Role Status Dates Dr. Adrian Ley MD Primary Care Provider Acti ve Start: September 11, 2024 End: September 11, 2024 Dr. Adrian Ley MD Referring Provider Active Start: September 11, 2024 End: September 11, 2024 Dr. Darian Goyal MD Attending Provider Active Start: September 11, 2024 End: September 11, 2024 Team Status: Inactive Member Role Status Dates Dr. Adrian Ley MD Primary Care Provider Acti ve Start: September 18, 2024 End: September 18, 2024 Ed Physician Provider Attending Provider Active Start: September 18, 2024 End: September 18, 2024 Ed Physician Provider Emergency Provider Active Start: September 18, 2024 End: September 18, 2024 Team Status: Inactive Member Role Status Dates Dr. Adrian Ley MD Primary Care Provider Acti ve Start: November 29, 2024 End: November 29, 2024 Dr. Vj Nguyen DO Emergency Provider Activ e Start: November 29, 2024 End: November 29, 2024 Bioinformatics Analyst Relationship Specialty Start Date End Date Ekta Ley MD [address] [place] [address] PCP - General Family Medicine 01/04/18 Podlogar, REZA Suresh.BRAKE ADJUSTER [address] [place] [address] [employer] Family Medicine 08/11/24 Edgard Gómez APRN.BRAKE ADJUSTER [address] [place] [address] [employer] Family Medicine 11/26/24 Bioinformatics Analyst Relationship Specialty Start Date End Date Ekta Ley MD [address] [place] [address] PCP - General Family Medicine 01/04/18 Podlogar, Demetrice LIQUOR GALLERY OPERATOR.BRAKE ADJUSTER [address] [place] [address] [employer] Officer Family Medicine 08/11/24 Edgard Gómez LIQUOR GALLERY OPERATOR.BRAKE ADJUSTER [address] [place] [address] [employer] Family Medicine 11/26/24 Bioinformatics Analyst Relationship Specialty Start Date End Date Ekta Ley MD [address] [place] [address] PCP - General Family Medicine 01/04/18 Podlogar, Demetrice LIQUOR GALLERY OPERATOR.BRAKE ADJUSTER [address] [place] [address] [employer] Family Medicine 08/11/24 Edgard Gómez LIQUOR GALLERY OPERATOR.BRAKE ADJUSTER [address] [place] [address] [employer] Family Medicine 11/26/24 Bioinformatics Analyst Relationship Specialty Start Date End Date Ekta Ley MD [address] [facility] [place] [address] PCP - General Family Medicine 01/04/18 PodlogarDemetrice APRN.BRAKE ADJUSTER [address] [facility] [place] [address] [employer]apons Officer Family Medicine 08/11/24 Edgard Gómez APRN.BRAKE ADJUSTER [address] [facility] [place] [address] [facility] 11/26/24 Bioinformatics Analyst Relationship Specialty Start Date End Date Ekta Ley MD [address] [facility] [place] [address] PCP - General Family Medicine 01/04/18 Podlogar, REZA Suresh.BRAKE ADJUSTER [address] [facility] [place] [address] [employer] Weapons Officer Family Medicine 08/11/24 Edgard Gómez APRN.BRAKE ADJUSTER [address] [facility] [place] [address] [facility] 11/26/24 Bioinformatics Analyst Relationship Specialty Start Date End Date Ekta Ley MD [address] [facility] [place] [address] PCP - General Family Medicine 01/04/18 PodlogarDemetrice APRN.BRAKE ADJUSTER [address] [facility] [place] [address] [employer] Weapons Officer Family Medicine 08/11/24 Edgard Gómez APRN.BRAKE ADJUSTER [address] [place] [address] [employer] Weapons Officer Family Medicine 11/26/24 Goals (unrecognized section and content) Goals may be documented in a n alternate sectionGoals may be documented in an alternate sectionGoals may be documented in an alternate sectionGoals may be documented in an alternate sectionGoals may be documented in an alternate sectionGoals may be documented in an alternate section Scheduled Active and Recently Administ ered Medications (unrecognized section and content) Medication Order 03/09/2022 03/10/2022 03/11/2022 ceFAZolin 2 g in D5W 100 mL (ANCEF) (CANCELED) 2 g, INTRAVENOUS, at 200 mL/hr, Administer over 30 Minutes, PRE-OP ONCE, 1 dose, On Lizette 03/11/22 at 1130, General Cases PRE-OP ANTIBIOTIC ADMINISTER ONLY IN SURGICAL AREA DO NOT ADMINSTER ON THE FLOOR Refrigerate, Please document the antimicrobial indication: Prophylaxis, Preprocedure 1253 (New Bag/Syring e/Bottle - Provider: Lavon Candelaria RN)1333 (Infusion Complete - Provider: Lavon Candelaria RN) Continuous Medication Order 03/09/2022 03/10/2022 03/11/2022 lactated ringers iv infusion (CANCELED) 5-30 mL/hr, INTRAVENOUS, CONTINUOUS, Starting on Lizette 03/11/22 at 1130, Until Lizette 03/11/22 at 1129, Preprocedure 1158 (New Bag/Syring e/Bottle - Provider: Ochoa Keane RN)1645 (Infusion Complete - Provider: Lavon Candelaria RN) PRN Medication Order 03/09/2022 03/10/2022 03/11/2022 albuterol HFA 90 mcg/actuation 2 Puff (PROVENTIL HFA, VENTOLIN HFA) 2 Puff, INHALATION, POST-OP PRN, Starting on Lizette 03/11/22 at 1559, Until Tue03/12/22 at 0303, wheezing/shortness of breath, SHAKE WELL BEFORE USING -Pharmaceutical Waste: Aerosol- 1600 (Given - Provid er: Lavon Candelaria RN) HYDROcodone 5 mg - acetaminophen 325 mg tablet (NORCO) 1-2 tablet, ORAL, EVERY 4 HOURS NEEDED, Starting on Lizette 03/11/22 at 1516, Until Tue03/12/22 at 0303, Mild Pain (1-3) - Enteral, Moderate Pain (4-6) - Enteral 1552 (Given - Provid er: Lavon Candelaria RN) lidocaine 2%-EPINEPHrine 1:100,000 injection (CANCELED) X (OR/PROCEDURE) PRN, Starting on Lizette 03/11/22 at 1450, Until Lizette 03/11/22 at 1507, Intraprocedure 1450 (Given - Provid er: Kalpana Ivy MD) FOR RECORDS PERTAINING TO PATIENTS WHO ARE OR HAVE BEEN ENROLLED IN A CHEMICAL DEPENDENCY/SUBSTANCEABUSE PROGRAM, SOME INFORMATION MAY BE OMITTED. This clinical summary was aggregated from multiple sources. Caution should be exercised in using it in the provision of clinical care. This summary normalizes information from multiple sources, and as a consequence, information in this document may materially change the coding, format and clinical context of patient data. In addition, data may be omitted in some cases. CLINICAL DECISIONS SHOULD BE BASED ON THE PRIMARY CLINICAL RECORDS. [email or web address] [facility]. provides no warranty or guarantee of the accuracy or completeness of information in this document.
[2025-04-14] MEDS: Orphenadrine 60 MG/2 ML Ampul IM (13:00)
[2025-04-14 13:06] VITALS: BP 124/82; PULSE 78; RESP 16; TEMP 36.4; O2SAT 99
== END 2025-04-14 13:22 | disposition home or self-care (01) ==
PROVIDERS: Emergency Provider Emergency Medicine; PCP Family Medicine; Visit Provider Emergency Medicine
DX: M54.9 Dorsalgia, unspecified (principal); E78.5 Hyperlipidemia, unspecified; K21.9 Gastro-esophageal reflux disease without esophagitis
CPT/HCPCS: 96372; 99282

== ENCOUNTER 2025-06-10 18:13 | Emergency (ER) | payer MEDICAID, SELFPAY ==
[2025-06-10 18:14] VITALS: BP 133/71; PULSE 81; RESP 16; TEMP 36.9; O2SAT 99; BMI 23.1
--- OUTSIDE RECORDS SUMMARY | 2025-06-10 19:04 | XMS RPT_ITS | CCD ---
Author Organization [facility] ion Partnership [facility] Care Team Providers Care Applied Computer Science Professor Name Role Phone IMCA Unavailable Unavailable KASI JOHNSON Unavailable Unavailable Ekta Ley MD Primary Care Provider Etka Ley MD Primary Care Provider Ekta Ley MD Primary Care Provider Dr. Adrian Ley Primary Care Provider Dr. Adrian Ley Referring Provider Dr. Darian Goyal Attending Provider Dr. Linda Moise Attending Provider [phone] Ekta Ley MD Primary Care Provider AJAY MARCIAL PA-C Attending Unavailable DR ARIELLE MUNSON MD Primary Care Unavailabl Ekta Tony MD Primary Care Provider Podlogar ROPEWALK ROPE MAKER.Demetrice KIMBLE Unavailable Knoble ROPEWALK ROPE MAKER.Edgard KIMBLE Unavailable Knoble ROPEWALK ROPE MAKER.SHYANNE, Edgard Unavailable Dr. Adrian Ley MD Primary Care Provider Dr. Adrian Ley MD Referring Provider Betsy Min PA-C Attending Provider Betsy Min PA-C Referring Provider Dr. Darian Goyal MD Attending Provider Provider, Ed Physician Attending Provider Debbie joyce Provider, Ed Physician Emergency Provider Debbie Nguyen DO, Dr. Zabala Emergency Provider Jil AGARWAL, Dr. Campbell Primary Care Provider Dr. Reilly Fulton DO Emergency Provider [phone] Bursley, Adrian Primary Care Unavailable Bursley, Adrian Referring Unavailable Crystal Villasenor Attending Unavailable Lovelyley, Adrian Primary Care Unavailable Vj Nguyen Attending Unavailabl e Bursley, Adrian Primary Care Unavailable James Sheldon Attending Unavailable Reilly Fulton Attending Unavailable Bursley, Adrian Primary Care Unavailable Bursley, Adrian Primary Care Unavailable Provider, Ed Physician Attending Unavailab le Bursley, Adrian Primary Care Unavailable Betsy Lockhart Attending Unavailable Betsy Lockhart Referring Unavailable Bursley, Adrian Referring Unavailable Bursley, Adrian Primary Care Unavailable Darian Goyal Attending Unavailable Bursley, Adrian Referring Unavailable Bursley, Adrian Primary Care Unavailable Darian Goyal Attending Unavailable Bursley, Adrian Primary Care Unavailable Bursley, Adrian Referring Unavailable Darian Goyal Attending Unavailable Bursley, Adrian Referring Unavailable Bursley, Adrian Primary Care Unavailable Darian Goyal Attending Unavailable Bursley, Adrian Primary Care Unavailable Bursley, Adrian Referring Unavailable Betsy Lockhart Attending Unavailable Crystal Villasenor Referring Unavailable Bursley, Adrian Primary Care Unavailable Crystal Villasenor Attending Unavailable Bursley, Adrian Primary Care Unavailable Darian Goyal Attending Unavailable Darian Goyal Referring Unavailable Tariq COBB.Edgard KIMBLE Unavailable BETSY JALLOH Admitting Unavailable BETSY JALLOH Attending Unavailable BETSY JALLOH Referring Unavailable BURSLEY, CHRISTOPHER B Primary Care Unavailab MITZI Bonner Attending Unavailable SELF Referring Unavailable LOVELYLEY CHRISTOPHER B Primary Care Unavailab BETSY Roca Attending Unavailable LOVELYLEY, CHRISTOPHER B Primary Care Unavailab le LOVELYLEYMARCELAER B Referring Unavailab le BETSY JALLOH Referring Unavailable BURSLEY, CHRISTOPHER B Primary Care Unavailab le BETSY JALLOH Attending Unavailable LOVELYLEY, CHRISTOPHER B Primary Care Unavailab le BURSLEY, CHRISTOPHER B Referring Unavailab BETSY Roca Attending Unavailable EKTA LEY Primary Care Unavailab EKTA Burton Referring Unavailab CHAN Chery Referring Unavailable EKTA LEY Primary Care Unavailab le BETSY JALLOH Attending Unavailable EKTA LEY Primary Care Unavailab EKTA Burton Referring Unavailab EKTA Burton Primary Care Unavailab EDGARD Dowling Attending Unavailable EKTA LEY Primary Care Unavailab CHAN Chery Attending Unavailable BETSY JALLOH Referring Unavailable EKTA LEY Primary Care Unavailab EDGARD Dowling Attending Unavailable EKTA LEY Primary Care Unavailab EDGARD Dowling Referring Unavailable Allergies Allergy Classification Reported Allergen(s) Allergy Type Date of Onset Reaction(s) Facility (20 sources) traMADol; Translations: [TRAMADOL] [facility] ERYTHROMYCIN BASE; Translations: [ERYTHROMYCIN BASE] Propensity to adverse reactions (disorder) 3 [facility] Repository (20 sources) Ketorolac; Translations: [KETOROLAC TROMETHAMINE] Drug Allergy 8 [facility] Work Phone: (20 sources) Naproxen; Translations: [NAPROXEN] Drug Allergy 8 [facility] Work Phone: (1 source) Ketorolac Drug Allergy 5 [facility] Repository (1 source) Naproxen Drug Allergy 5 [facility] Repository Medications Current Medications Medication Drug Class(es) [...] / HYDROcodone bitartrate 5 mg oral tablet (10 sources) Opioid Agonist Start: 04-14-2025 take 1 tablet by mouth every four hours as needed for pain Hydrocodone-Acetami nophen 5-325 mg tablet Active 1 {tbl} PO EVERY 4 HOURS NEEDED as needed for Pain 10 2 0 April 14, 2025 Back pain Dorsalgia, unspecified Start: 12-07-2024 End: 12-15-2024 take 1 tablet by mouth twice daily HYDROcodone-acetaminophen (NORCO) 5-325 mg per tablet Indications: Post-operative pain Take 1 tablet by mouth two times a day for 4 days. 8 tablet 12/11/2024 12/15/2024 Active Start: 06-10-2024 End: 06-14-2024 Hydrocodone-Acetaminophen 5- 325 mg tablet Discontinued 1 {tbl} PO EVERY 4 HOURS NEEDED as needed for Pain 6 2 0 June 10, 2024 June 14, 2024 4:02pm Strain of lumbar region Strain of muscle, fascia and tendon of lower back, initial encounter Start: 03-16-2022 End: 03-21-2022 take 1 tablet [...] for pain for up to 5 days. [id number] actuat albuterol 0.09 mg/actuat metered dose inhaler (20 sources) beta2-Adrenergic Agonist Start: End: take 2 puff(s) by inhalation every four hours as needed for wheezing albuterol HFA (PROVENTIL HFA, VENTOLIN HFA) 90 mcg/actuation inhaler Indications: Mild intermittent asthma without complication (HCC) Inhale 2 puffs as instructed every 4 hours as needed for wheezing/shortness of breath. 18 g 2 04/18/2025 Active Start: 03-30-2024 End: 07-03-2024 take 2 [...] NEEDED September 02, 2015 5:51pm Start: 09-02-2015 End: 04-18-2025 take 2 puff(s) by inhalation every four hours as needed for wheezing albuterol HFA (PROVENTIL HFA, VENTOLIN HFA) 90 mcg/actuation inhaler Inhale 2 puffs as instructed every 4 hours as needed for wheezing/shortness of breath. 09/02/2015 04/18/2025 Discontinued Start: 09-02-2015 Albuterol Sulf ate (Ventolin [...] hours as needed for wheezing/shortness of breath. amitriptyline hydrochloride 50 mg oral tablet (1 source) Tricyclic Antidepressant Start: take 1 tablet by mouth once daily at bedtime amitriptyline (ELAVIL) 50 mg tablet Take 50 mg by mouth daily at bedtime. 04/01/2025 Active amoxicillin 875 mg / clavulanate 125 mg oral tablet (3 sources) Penicillin-class Antibacterial Start: End: amoxicillin-clavula slama acid (AUGMENTIN) 875-125 mg per tablet Take [...] on above: Take 1 tablet by neno twice daily for 10 days. FOR 10 DAYS. atorvastatin 80 mg oral tablet (20 sources) HMG-CoA Reductase Inhibitor Start: End: take 1 tablet by mouth once daily at bedtime for hyperlipidemia atorvastatin (LIPITOR) 80 mg tablet Indications: Mixed hyperlipidemia Take 1 tablet by mouth daily at bedtime. For cholesterol. 90 tablet 1 04/18/2025 10/15/2025 Active Start: 12-09-2021 End: 12-09-2021 take 1 tablet by mouth once daily at bedtime for hyperlipidemia atorvastatin (LIPITOR) 20 mg tablet Take 1 tablet by mouth daily at bedtime. For cholesterol. 90 tablet 1 12/09/2021 12/09/2021 Discontinued Comment on above: Take 1 tablet by neno daily at bedtime. For cholesterol. cephalexin 500 mg oral capsule (7 sources) Cephalosporin Antibacterial Start: 2 take 500 mg by mouth every six hours Cephalexin Active 500 MG PO EVERY 6 HOURS 40 December 18, 2021 8:16pm Start: 12-17-2021 End: 12-27-2021 take 1 capsule by mouth four times daily cephALEXin (KEFLEX) 500 mg capsule Indications: Abscess of breast, left Take 1 capsule by mouth four times daily for 10 days. 40 capsule 0 12/17/2021 12/27/2021 Active Comment on above: Take 1 capsule by mo [facility] four times daily for 10 days. cetirizine [...] Start: 09-09-2016 take 1 capsule by mo [facility] once daily Cetirizine (Zyrtec) 10 MG capsule Active 10 mg PO DAILY September 09, 2016 1:00am Comment on above: Take 1 tablet by neno once daily. cyclobenzaprine hydrochloride 10 mg oral tablet (10 sources) Muscle Relaxant Start: 04-14-20 take 1 tablet by mouth every eight hours as needed cyclobenzaprine (FLEXERIL) 10 mg tablet Take 10 mg by mouth three times a day as needed. 04/14/2025 Active Start: 11-29-2024 take 1 tablet by neno th three times daily as needed for muscle spasms Cyclobenzaprine 5 mg tablet Active 5 mg PO THREE TIMES A DAY as needed for muscle spasm 9 3 0 November 29, 2024 12:00am Start: 03-07-2022 End: 06-10-2024 take 1 tablet by mouth twice daily as needed for muscle spasms Cyclobenzaprine 10 mg tablet Discontinued 10 mg PO TWICE A DAY as needed for muscle spasm 21 0 March 07, 2022 12:00am June 10, 2024 1:25pm doxycycline hyclate 100 mg oral capsule (7 sources) Tetracycline-class Drug Start: 12-11-2024 End: 01-22-2025 take 1 capsule by mouth twice daily doxycycline hyclate (VIBRAMYCIN) 100 mg capsule Take 1 capsule by mouth two times a day. 84 capsule 12/11/2024 01/22/2025 Active Start: 08-09-2024 End: 08-19-2024 take 1 capsule by mouth twice daily Doxycycline Monohydrate 100 mg capsule Discontinued 100 mg PO TWICE A DAY 20 10 0 August 09, 2024 1:00am August 18, 2024 1:00am [...] mouth. takes 4 tabs once a day levETIRAcetam 1000 mg oral tablet (20 sources) Start: take 1 tablet by mouth twice daily levETIRAcetam (KEPPRA) 1,000 mg tablet Take 1,000 mg by mouth two times a day. 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 0 01/07/2015 04/18/2025 Discontinued Comment on above: Take 1.5 tablets by mouth twice daily. montelukast 10 mg oral tablet (1 source) Leukotriene Receptor Antagonist Start: 03-17-20 11 take 1 tablet by mouth once daily montelukast (SINGULAIR) 10 mg tablet Take 10 mg by mouth once daily. 03/17/2011 Active oxyCODONE hydrochloride 5 mg oral tablet (1 source) Opioid Agonist Start: 12-04-19 End: 12-08-19 take 1 tablet by mouth every eight [...] sources) Serotonin Reuptake Inhibitor Start: 09-09-2016 End: 04-18-2025 take 1 tablet by mouth once daily sertraline (ZOLOFT) 50 mg tablet Indications: Recurrent major depressive disorder, remission status unspecified Take 1 tablet by mouth once daily. 90 tablet 1 04/18/2025 Active Comment on above: Take 1 tablet by neno once daily. SUMAtriptan 50 mg oral tablet (20 sources) Serotonin-1b and Serotonin-1d Receptor Agonist Start: 12-07-2017 SUMAtriptan (IMITREX) 50 mg tablet Take 50 mg by mouth as needed. 12/07/2017 Active Comment on above: Take 50 mg by mouth as needed. vitamin b6 250 mg oral tablet (5 sources) Start: 05-21-2022 take 1 tablet by [...] FOR PAIN. amoxicillin 875 mg oral tablet (2 sources) Penicillin-class Antibacterial Start: 08-14-2024 End: 10-02-2024 take 1 tablet by mouth every twelve hours Amoxicillin 875 mg tablet Discontinued 875 mg PO Q12H 98 49 0 August 14, 2024 1:00am October 01, 2024 1:00am October 02, 2024 1:11am Abscess of left breast Abscess of the breast and nipple clindamycin 300 mg oral capsule (2 sources) Lincosamide Antibacterial Start: 07-23-2024 End: 08-02-2024 take 1 capsule by mouth every six hours Clindamycin Hcl 300 mg capsule Discontinued 300 mg PO EVERY 6 HOURS 40 10 0 July 23, 2024 1:00am August 01, 2024 1:00am August 02, 2024 1:09am famotidine 20 mg oral tablet (20 sources) Histamine-2 Receptor Antagonist Start: 09-30-2020 End: 06-10-2024 take 1 tablet by mouth twice daily Famotidine 20 mg tablet Discontinued 20 mg PO TWICE A DAY May 21, 2022 12:00am June 10, 2024 1:25pm Comment on above: Take 1 tablet by neno twice daily. ibuprofen 600 mg oral tablet (3 sources) Nonsteroidal Anti-inflammatory Drug Start: 06-12-2023 End: 06-14-2024 take 1 tablet by mouth every six hours as needed for pain Ibuprofen 600 mg tablet Discontinued 600 mg PO EVERY 6 HOURS NEEDED as needed for pain 20 0 June 12, 2023 12:00am June 14, 2024 4:02pm metroNIDAZOLE 500 mg oral tablet (2 sources) Nitroimidazole Antimicrobial Start: 09-10-2024 End: 09-17-2024 take 1 tablet by mouth three times daily Metronidazole 500 mg tablet Discontinued 500 mg PO THREE TIMES A DAY 21 7 0 September 10, 2024 1:00am September 16, 2024 1:00am September 17, 2024 1:10am pravastatin sodium 20 mg oral tablet (7 sources) HMG-CoA Reductase Inhibitor Start: 09-09-2016 End: 05-21-2022 take 1 tablet by mouth once daily Pravastatin Sodium 20 MG tablet Discontinued 20 mg PO DAILY September 09, 2016 1:00am May 21, 2022 10:13am predniSONE 10 mg oral tablet (10 sources) Start: 02-16-2024 End: 11-06-2024 predniSONE (DELTASONE) 10 mg tablet Take 4 [...] 2024 1:25pm raNITIdine 150 mg oral tablet (7 sources) Histamine-2 Receptor Antagonist Start: 09-09-2016 End: 05-21-2022 take 1 tablet by mouth twice daily Ranitidine Hcl (Acid Control) 150 MG tablet Discontinued 150 mg PO TWICE A DAY September 09, 2016 1:00am May 21, 2022 10:13am tiZANidine 2 mg oral tablet (5 sources) Central alpha-2 Adrenergic Agonist Start: 06-10-2024 End: 06-14-2024 take 1 tablet by mouth every eight hours as needed Tizanidine 2 mg tablet Discontinued 2 mg PO Q8H as needed for muscle spasticity 15 June 10, 2024 2:22pm June 14, 2024 4:02pm Start: 06-12-2023 End: 06-10-2024 take 1 tablet by mouth every eight hours as needed Tizanidine 4 mg tablet Discontinued 4 mg PO Q8H as needed for muscle spasticity 15 5 June 12, 2023 12:00am June 10, 2024 1:25pm Problems Active Problems Problem Classification Problem Date Documented Date Episodic/Chronic Asthma (20 sources) Mild intermittent asthma; Translations: [Mild intermittent asthma, uncomplicated] Onset: 12-02-2005 Chronic Developmental disorders (20 sources) Developmental academic disorder; [...] without status epilepticus] Onset: 03-14-2003 08-31-2021 Chronic Esophageal disorders (20 sources) Gastro-esophageal reflux disease with esophagitis; Translations: [Gastroesophageal reflux disease with esophagitis without hemorrhage] Chronic Esophageal disorders (1 source) Esophageal disorders; Translations: [Gastroesophageal reflux disease with esophagitis without hemorrhage] Onset: 09-30-2017 Headache; including migraine (20 sources) Migraine without aura; Translations: [Migraine without aura, not intractable, without status migrainosus] Onset: 03-14-2003 08-30-2019 Chronic Headache; including migraine (2 sources) Headache; Translations: [Headache] 07-06-2023 Episodic Hemorrhage during ; abruptio placenta; placenta previa (7 sources) Threatened miscarriage in first trimester; Translations: [...] [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 Open wounds of head; neck; and trunk (1 source) Open wound of left breast; Translations: [Unspecified open wound of left breast, subsequent encounter] Episodic Other aftercare (1 source) Other correction (current) drug therapy; Translations: [Medication management] Onset: 04-18-2025 Episodic Other injuries and conditions due to external causes (1 source) Open wound; Translations: [Other injury of unspecified body region, initial encounter] Episodic Other injuries and conditions due to external causes (5 sources) Delayed healing of wound; Translations: [Other [...] (multiple) of unspecified site(s), complicated] Episodic Other injuries and conditions due to external causes (1 source) Contusion of rib; Translations: [Other specified injuries of thorax, initial encounter] 05-19-2017 Episodic Other lower respiratory disease (1 source) Cough; Translations: [Acute cough] 11-20-2024 Episodic Other nervous system disorders (20 sources) Complex regional pain syndrome of upper limb; Translations: [Complex regional pain syndrome I of unspecified upper limb] Onset: 01-18-2003 12-30-2003 Chronic Other nervous system disorders (5 sources) Complex regional pain syndrome; Translations: [Complex regional pain syndrome I, unspecified] 05-21-2022 Chronic Other nervous system disorders (20 sources) Chronic pain; Translations: [Other chronic pain] Onset: 10-17-2012 Resolved: 04-09-2015 04-09-2015 Chronic Other nervous system disorders (1 source) Complex regional pain syndrome I of left upper limb; Translations: [Complex regional pain syndrome type 1 of left upper extremity] Onset: 05-21-2025 Chronic Other nervous system disorders (5 sources) Postoperative pain ; Translations: [Other acute postprocedural pain] Episodic Other screening for suspected conditions (not mental disorders or infectious disease) (9 sources) Patient encounter status; Translations: [Encounter for screening mammogram for malignant neoplasm of breast] Onset: 04-18-2025 Episodic Other skin disorders (1 source) Onychomadesis; Translations: [Other nail disorders] 04-05-2024 Episodic Other upper respiratory disease (20 sources) Seasonal allergy; Translations: [Other seasonal allergic rhinitis] Onset: 11-27-2021 11-27-2021 Chronic Other upper respiratory disease (1 source) Respiratory tract congestion; Translations: [Nasal congestion] 11-20-2024 Episodic Other upper respiratory infections (2 sources) Sinusitis; Translations: [Chronic sinusitis, unspecified] 02-16-2024 Chronic Residual codes; unclassified (1 source) Tobacco use and exposure - finding; Translations: [Tobacco use] Episodic Screening and history of mental health and substance abuse codes (20 sources) H/O: depression; Translations: [Personal history of other mental and behavioral disorders] Onset: 01-11-2019 Resolved: 11-27-2021 11-27-2021 Episodic Substance-related disorders (20 sources) Tobacco user; Translations: [Nicotine dependence, unspecified, uncomplicated] Onset: 11-07-2008 11-07-2008 Chronic Thyroid disorders (20 sources) Goiter; Translations: [Nontoxic goiter, unspecified] Onset: 12-17-2009 Chronic Unclassified (1 source) Unknown / UNK(Unknown) Onset: 06-14-2017 Unclassified (1 source) Low back pain, unspecified; Translations: [Low back pain, unspecified] Onset: 12-05-2024 Unclassified (1 source) Acute cough; Translations: [Acute cough] Onset: 11-20-2024 Viral infection (7 sources) Genital herpes simplex; Translations: [Herpesviral infection of urogenital system, unspecified] 03-28-2021 Chronic Past or Other Problems Problem Classification Problem Date Documented Date Episodic/Chronic Bacterial infection; unspecified site (2 sources) Actinomycotic infection; Translations: [Actinomycosis, unspecified] Onset: 12-12-2024 12-12-2024 Episodic Cancer of cervix (20 sources) Low grade squamous intraepithelial lesion on cervical Papanicolaou smear; Translations: [Low grade squamous intraepithelial lesion on cytologic smear of cervix (LGSIL)] Onset: 08-14-2008 Resolved: 04-09-2015 08-14-2008 Episodic Epilepsy; convulsions (8 sources) Seizure; Translations: [Unspecified convulsions] Onset: 12-03-2024 12-03-2024 Episodic Nonmalignant breast conditions (20 sources) Mastodynia; Translations: [...] mg twice daily and is due to bean picker metronidazole. She is reminded that this is [...] eradicate this infection. Patient seemed to internalize school adjustment counselor given. Other and unspecified benign neoplasm (20 sources) [...] and mobility] Onset: 11-05-2011 11-05-2011 Episodic Other nervous system disorders (2 sources) Other acute postprocedural pain; Translations: [Post-operative pain] Onset: 12-03-2024 Episodic Other nutritional; endocrine; and metabolic disorders [...] skin and subcutaneous tissue] Onset: 06-14-2024 Episodic Other upper respiratory disease (1 source) Nasal congestion; Translations: [Head congestion] Onset: 11-20-2024 Episodic Residual codes; unclassified (20 sources) History of clinical finding in subject; Translations: [Personal history of other specified conditions] Onset: 01-11-2019 Episodic Residual codes; unclassified (19 sources) Personal history of other specified conditions; Translations: [Personal history of other specified diseases] Onset: 01-11-2019 01-11-2019 Episodic Residual codes; unclassified (16 sources) At high risk for breast cancer; [...] risk for breast cancer] Onset: 11-19-2024 Episodic Sexually transmitted infections (not HIV or [...] Test Name Value Interpretation Reference Range Facility CBC W Auto Differential pane l (Bld)on 05-29-2025 Basophils (Bld) [#/Vol] 0.06 10*3/uL Normal <0.11 [facility] Comment on above: Order Comment: Speci men Type: BLOOD SPECIMEN Ordering Facility: [facility] Address: [address] [place] [address] Performed By: #### 5 7021-8 #### [facility] CLIA [id number] [address] [place] [address] [place] Basophils/100 WBC (Bld) 0.6 % Normal [facility] Comment on above: Order Comment: Speci men Type: BLOOD SPECIMEN Ordering Facility: [facility] Address: [address] [place] [address] Performed By: #### 5 7021-8 #### [facility] CLIA [id number] [address] [place] [address] [place] Differential cell count method Nom (Bld) Auto Normal [facility] Comment on above: Order Comment: Speci men Type: BLOOD SPECIMEN Ordering Facility: [facility] Address: [address] [place] [address] Performed By: #### 5 7021-8 #### [facility] CLIA [id number] [address] [place] [address] [place] Eosinophils (Bld) [#/Vol] 0.20 10*3/uL Normal <0.46 [facility] Comment on above: Order Comment: Speci men Type: BLOOD SPECIMEN Ordering Facility: [facility] Address: [address] [place] [address] Performed By: #### 5 7021-8 #### [facility] CLIA [id number] [address] [place] [address] [place] Eosinophils/100 WBC (Bld) 2.1 % Normal [facility] Comment on above: Order Comment: Speci men Type: BLOOD SPECIMEN Ordering Facility: [facility] Address: [address] [place] [address] Performed By: #### 5 7021-8 #### [facility] CLIA [id number] [address] [place] [address] [place] Erythrocyte distribution width (RBC) [Ratio] 11.7 % Normal 11.5-15.0 [facility] Comment on above: Order Comment: Speci men Type: BLOOD SPECIMEN Ordering Facility: [facility] Address: [address] [place] [address] Performed By: #### 5 7021-8 #### [facility] CLIA [id number] [address] [place] [address] [place] Hematocrit (Bld) [Volume fraction] 45.2 % Normal 36.0-46.0 [facility] Comment on above: Order Comment: Speci men Type: BLOOD SPECIMEN Ordering Facility: [facility] Address: [address] [place] [address] Performed By: #### 5 7021-8 #### [facility] CLIA [id number] [address] [place] [address] [place] Hemoglobin (Bld) [Mass/Vol] 15.1 g/dL Normal 11.5-15.5 [facility] Comment on above: Order Comment: Speci men Type: BLOOD SPECIMEN Ordering Facility: [facility] Address: [address] [place] [address] Performed By: #### 5 7021-8 #### [facility] CLIA [id number] [address] [id number] [address] [place] Immature granulocytes (Bld) [#/Vol] 0.04 10*3/uL Normal <0.10 [facility] Comment on above: Order Comment: Speci men Type: BLOOD SPECIMEN Ordering Facility: [facility] Address: [address] [place] [address] Performed By: #### 5 7021-8 #### [facility] CLIA [id number] [address] [place] [address] [place] Immature granulocytes/100 WBC (Bld) 0.4 % Normal [facility] Comment on above: Order Comment: Speci men Type: BLOOD SPECIMEN Ordering Facility: [facility] Address: [address] [place] [address] Performed By: #### 5 7021-8 #### [facility] CLIA [id number] [address] [place] [address] [place] Lymphocytes (Bld) [#/Vol] 3.21 10*3/uL Normal 1.00-4.00 [facility] Comment on above: Order Comment: Speci men Type: BLOOD SPECIMEN Ordering Facility: [facility] Address: [address] [place] [address] Performed By: #### 5 7021-8 #### [facility] CLIA [id number] [address] [place] [address] [place] Lymphocytes/100 WBC (Bld) 33.3 % Normal [facility] Comment on above: Order Comment: Speci men Type: BLOOD SPECIMEN Ordering Facility: [facility] Address: [address] [place] [address] Performed By: #### 5 7021-8 #### [facility] CLIA [id number] [address] [place] [address] [place] MCH (RBC) [Entitic mass] 31.0 pg Normal 26.0-34.0 [facility] Comment on above: Order Comment: Speci men Type: BLOOD SPECIMEN Ordering Facility: [facility] Address: [address] [place] [address] Performed By: #### 5 7021-8 #### [facility] CLIA [id number] [address] [place] [address] [place] MCHC (RBC) [Mass/Vol] 33.4 g/dL Normal 30.5-36.0 [facility] Comment on above: Order Comment: Speci men Type: BLOOD SPECIMEN Ordering Facility: [facility] Address: [address] [place] [address] Performed By: #### 5 7021-8 #### [facility] CLIA [id number] [address] [place] [address] [place] MCV (RBC) [Entitic vol] 92.8 fL Normal 80.0-100.0 [facility] Comment on above: Order Comment: Speci men Type: BLOOD SPECIMEN Ordering Facility: [facility] Address: [address] [place] [address] Performed By: #### 5 7021-8 #### [facility] CLIA [id number] [address] [place] [address] [place] Monocytes (Bld) [#/Vol] 0.61 10*3/uL Normal <0.87 [facility] Comment on above: Order Comment: Speci men Type: BLOOD SPECIMEN Ordering Facility: [facility] Address: [address] [place] [address] Performed By: #### 5 7021-8 #### [facility] CLIA [id number] [address] [place] [address] [place] Monocytes/100 WBC (Bld) 6.3 % Normal [facility] Comment on above: Order Comment: Speci men Type: BLOOD SPECIMEN Ordering Facility: [facility] Address: [address] [place] [address] Performed By: #### 5 7021-8 #### [facility] CLIA [id number] [address] [place] [address] [place] Neutrophils (Bld) [#/Vol] 5.52 10*3/uL Normal 1.45-7.50 [facility] Comment on above: Order Comment: Speci men Type: BLOOD SPECIMEN Ordering Facility: [facility] Address: [address] [place] [address] Performed By: #### 5 7021-8 #### [facility] CLIA [id number] [address] [place] [address] [place] Neutrophils/100 WBC (Bld) 57.3 % Normal [facility] Comment on above: Order Comment: Speci men Type: BLOOD SPECIMEN Ordering Facility: [facility] Address: [address] [place] [address] Performed By: #### 5 7021-8 #### [facility] CLIA [id number] [address] [place] [address] [place] Nucleated RBC (Bld) [#/Vol] 10*3/uL Normal <0.01 [facility] Comment on above: Order Comment: Speci men Type: BLOOD SPECIMEN Ordering Facility: [facility] Address: [address] [place] [address] Performed By: #### 5 7021-8 #### [facility] CLIA [id number] [address] [place] [address] [place] Nucleated RBC/100 WBC (Bld) [Ratio] 0.0 /100 WBC Normal [facility] Comment on above: Order Comment: Speci men Type: BLOOD SPECIMEN Ordering Facility: [facility] Address: [address] [place] [address] Performed By: #### 5 7021-8 #### [facility] CLIA [id number] [address] [place] [address] [place] Platelet mean volume (Bld) [Entitic vol] 8.9 fL Low 9.0-12.7 [facility] Comment on above: Order Comment: Speci men Type: BLOOD SPECIMEN Ordering Facility: [facility] Address: [address] [place] [address] Performed By: #### 5 7021-8 #### [facility] CLIA [id number] [address] [place] [address] [place] Platelets (Bld) [#/Vol] 286 10*3/uL Normal 150-400 [facility] Comment on above: Order Comment: Speci men Type: BLOOD SPECIMEN Ordering Facility: [facility] Address: [address] [place] [address] Performed By: #### 5 7021-8 #### [facility] CLIA [id number] [address] [place] [address] [place] RBC (Bld) [#/Vol] 4.87 10*6/uL Normal 3.90-5.20 [facility] Comment on above: Order Comment: Speci men Type: BLOOD SPECIMEN Ordering Facility: [facility] Address: [address] [place] [address] Performed By: #### 5 7021-8 #### [facility] CLIA [id number] [address] [place] [address] [place] WBC (Bld) [#/Vol] 9.64 10*3/uL Normal 3.70-11.00 [facility] Comment on above: Order Comment: Speci men Type: BLOOD SPECIMEN Ordering Facility: [facility] Address: [address] [place] [address] Performed By: #### 5 7021-8 #### [facility] CLIA [id number] [address] [place] [address] [place] Comprehensive metabolic 2000 panelon 05-29-2025 Albumin [Mass/Vol] 3.4 g/dL Low 3.9-4.9 [facility] Comment on above: Order Comment: Speci men Type: BLOOD SPECIMEN Ordering Facility: [facility] Address: [address] [place] [address] Performed By: #### 2 4323-8, 3016-3, LIPNF #### [facility] CLIA [id number] [address] [place] [address] [place] ALP [Catalytic activity/Vol] 72 U/L Normal 34-123 [facility] Comment on above: Order Comment: Speci men Type: BLOOD SPECIMEN Ordering Facility: [facility] Address: [address] [place] [address] Performed By: #### 2 4323-8, 3016-3, LIPNF #### [facility] CLIA [id number] [address] [place] [address] [place] ALT [Catalytic activity/Vol] 6 U/L Low 7-38 [facility] Comment on above: Order Comment: Speci men Type: BLOOD SPECIMEN Ordering Facility: [facility] Address: [address] [place] [address] Performed By: #### 2 4323-8, 3015-3, LIPNF #### [facility] CLIA [id number] [address] [place] [address] [place] Anion gap [Moles/Vol] 12 mmol/L Normal 8-15 [facility] Comment on above: Order Comment: Speci men Type: BLOOD SPECIMEN Ordering Facility: [facility] Address: [address] [place] [address] Performed By: #### 2 4323-8, 3015-3, LIPNF #### [facility] CLIA [id number] [address] [place], [place] [id number] [place] AST [Catalytic activity/Vol] 14 U/L Normal 13-35 [facility] Comment on above: Order Comment: Speci men Type: BLOOD SPECIMEN Ordering Facility: [facility] Address: [address] [place] [address] Performed By: #### 2 4323-8, 6-3, LIPNF #### [facility] CLIA [id number] [address] [place] [address] [place] Bilirubin [Mass/Vol] 0.3 mg/dL Normal 0.2-1.3 [facility] Comment on above: Order Comment: Speci men Type: BLOOD SPECIMEN Ordering Facility: [facility] Address: [address] [place] [address] Performed By: #### 2 4323-8, 3016-3, LIPNF #### [facility] CLIA [id number] [address] [place] [address] [place] Calcium [Mass/Vol] 9.3 mg/dL Normal 8.5-10.2 [facility] Comment on above: Order Comment: Speci men Type: BLOOD SPECIMEN Ordering Facility: [facility] Address: [address] [place] [address] Performed By: #### 2 4323-8, 3016-3, LIPNF #### [facility] CLIA [id number] [address] [place] [address] [place] Chloride [Moles/Vol] 104 mmol/L Normal 98-107 [facility] Comment on above: Order Comment: Speci men Type: BLOOD SPECIMEN Ordering Facility: [facility] Address: [address] [place] [address] Performed By: #### 2 4323-8, 3016-3, LIPNF #### [facility] CLIA [id number] [address] [place] [address] [place] CO2 [Moles/Vol] 24 mmol/L Normal 22-30 [facility] Comment on above: Order Comment: Speci men Type: BLOOD SPECIMEN Ordering Facility: [facility] Address: [address] [place] [address] Performed By: #### 2 4323-8, 3016-3, LIPNF #### [facility] CLIA [id number] [address] [place] [address] [place] Creatinine [Mass/Vol] 0.63 mg/dL Normal 0.58-0.96 [facility] Comment on above: Order Comment: Kailash montoya Type: BLOOD SPECIMEN Ordering Facility: [facility] Address: [address] [place] [address] Performed By: #### 2 4323-8, 3016-3, LIPNF #### [facility] CLIA [id number] [address] [place] [address] [place] eGFRcr SerPlBld CKD-EPI 2020 113 mL/min/1.73m??? Normal >=60 [facility] Comment on above: Order Comment: Kailash montoya Type: BLOOD SPECIMEN Ordering Facility: [facility] Address: [address] [place] [address] Result Comment: Edwina mated Glomerular Filtration Rate [...] reflect actual GFR. Performed By: #### 2 4323-8, 3016-3, LIPNF #### [facility] CLIA [id number] [address] [place] [address] [place] Glucose [Mass/Vol] 88 mg/dL Normal 74-99 [facility] Comment on above: Order Comment: Kailash montoya Type: BLOOD SPECIMEN Ordering Facility: [facility] Address: [address] [place] [address] Result Comment: The [place] Diabetes Association (ADA) provides guidance for cutoff [...] Standards of Medical Care in Diabetes 2016, [place] Diabetes Association. Diabetes Care. 2016.39(Suppl 1). Performed By: #### 2 4323-8, 6-3, LIPNF #### [facility] CLIA [id number] [address] [place] [id number] [place] Potassium [Moles/Vol] 4.3 mmol/L Normal 3.7-5.1 [facility] Comment on above: Order Comment: Speci men Type: BLOOD SPECIMEN Ordering Facility: [facility] Address: [address] [place], [place] [address] Performed By: #### 2 4323-8, 3015-3, LIPNF #### [facility] CLIA [id number] [address] [place] [address] [place] Protein [Mass/Vol] 6.7 g/dL Normal 6.3-8.0 [facility] Comment on above: Order Comment: Speci men Type: BLOOD SPECIMEN Ordering Facility: [facility] Address: [address] [place], [place] [address] Performed By: #### 2 4323-8, 3015-3, LIPNF #### [facility] CLIA [id number] [address] [place], [place] [id number] [place] Sodium [Moles/Vol] 140 mmol/L Normal 136-144 [facility] Comment on above: Order Comment: Speci men Type: BLOOD SPECIMEN Ordering Facility: [facility] Address: [address] [place] [id number] Performed By: #### 2 4323-8, 6-3, LIPNF #### [facility] CLIA [id number] [address] [place], [place] [id number] [place] Urea nitrogen [Mass/Vol] 5 mg/dL Low 7-21 [facility] Comment on above: Order Comment: Speci men Type: BLOOD SPECIMEN Ordering Facility: [facility] Address: [address] [place], [place] [address] Performed By: #### 2 4323-8, 3016-3, LIPNF #### [facility] CLIA [id number] [address] [place] [address] [place] HbA1c (Bld)on 05-29-2025 Average glucose Estimated from glycated hemoglobin (Bld) [Mass/Vol] 82 mg/dL Normal [facility] Comment on above: Order Comment: Kailash montoya Type: BLOOD SPECIMEN Ordering Facility: [facility] Address: [address] [place] [address] Result Comment: eAG: (Estimated average glucose) is a calculated value from HgbA1c and is passenger representative of the average blood glucose level in the last 2-3 month period. Performed By: #### 5 5454-3 #### [facility] CLIA [id number] [address] [place] [address] OF [facility] HbA1c (Bld) [Mass fraction] 4.5 % Normal 4.3-5.6 [facility] Comment on above: Order Comment: Kailash montoya Type: BLOOD SPECIMEN Ordering Facility: [facility] Address: [address] [place] [address] Result Comment: [place] Diabetes Association guidelines indicate that patients with HgbA1c in the range 5.7-6.4% are at increased risk for development of diabetes, and intervention by lifestyle modification may be beneficial. HgbA1c greater or equal to 6.5% is considered diagnostic of diabetes. Performed By: #### 5 5454-3 #### [facility] CLIA [id number] [address] [place] [address] [place] LIPID PANEL, NONFASTINGon Cholesterol [Mass/Vol] 258 mg/dL High <200 [facility] Comment on above: Order Comment: Kailash montoya Type: BLOOD SPECIMEN Ordering Facility: [facility] Address: [address] [place] [address] Result Comment: <200 mg/dL, Desirable 200-239 mg/dL, Borderline high >239 mg/dL, High Performed By: #### 2 4323-8, 3016-3, LIPNF #### [facility] CLIA [id number] [address] [place] [address] [place] HDL CHOLESTEROL, NF 45 mg/dL Normal >39 [facility] Comment on above: Order Comment: Elliottkarolina montoya Type: BLOOD SPECIMEN Ordering Facility: [facility] Address: [address] [place] [address] Result Comment: 40-5 9 mg/dL, Acceptable >59 mg/dL, High: Negative risk factor for coronary heart disease <40 mg/dL, Low: Positive risk factor for coronary heart disease Performed By: #### 2 4323-8, 3016-3, LIPNF #### [facility] CLIA [id number] [address] [place] [address] OF [facility] LDL CHOLESTEROL CALCULATED, NF 190 mg/dL High <100 [facility] Comment on above: Order Comment: Elliottkarolina montoya Type: BLOOD SPECIMEN Ordering Facility: [facility] Address: [address] [place] [address] Result Comment: <100 mg/dL, Optimal 100-129 mg/dL, Near optimal/above optimal 130-159 mg/dL, Borderline high 160-189 mg/dL, High >189 mg/dL, Very high Secondary prevention optimal LDL Cholesterol levels are recommended to be <70 mg/dL LDL cholesterol is calculated using the Jackson-NIH equation. Performed By: #### 2 4323-8, 3016-3, LIPNF #### [facility] CLIA [id number] [address] [place] [address] [place] LDL/HDL RATIO, NF 4.22 mg/dL High <2.54 [facility] Comment on above: Order Comment: Kailash montoya Type: BLOOD SPECIMEN Ordering Facility: [facility] Address: [address] [place] [address] Result Comment: Refe guruce: 1. National Cholesterol Education Program ATP III Guideline At-A-Glance Quick Desk Reference: National Heart, Lung, and Blood [place]. National Institutes of Health. 2001: NIH Publication No. 01-3305. 2. An International Atherosclerosis Society position paper: global recommendations for the management of dyslipidemia: executive summary, Atherosclerosis. 2014: 232(2):410-413. Performed By: #### 2 4323-8, 3016-3, LIPNF #### [facility] CLIA [id number] [address] [place] [address] [place] NON HDL CHOL, NF 213 mg/dL High <130 [facility] Comment on above: Order Comment: Kailash montoya Type: BLOOD SPECIMEN Ordering Facility: [facility] Address: [address] [place] [address] Result Comment: <130 mg/dL, Optimal 130-159 mg/dL, Near optimal/above optimal 160-189 mg/dL, Borderline high 190-219 mg/dL, High >219 mg/dL, Very high Secondary prevention optimal non HDL Cholesterol levels are recommended to be <100 mg/dL Performed By: #### 2 4323-8, 6-3, LIPNF #### [facility] CLIA [id number] [address] [place] [address] [place] T CHOL/HDL RATIO NF 5.73 mg/dL High <5.10 [facility] Comment on above: Order Comment: Kailash montoya Type: BLOOD SPECIMEN Ordering Facility: [facility] Address: [address] [place] [address] Performed By: #### 2 4323-8, 6-3, LIPNF #### [facility] CLIA [id number] [address] [place] [address] [place] TRIGLYCERIDES, NF 128 mg/dL Normal <150 [facility] Comment on above: Order Comment: Kailash montoya Type: BLOOD SPECIMEN Ordering Facility: [facility] Address: [address] [place] [address] Result Comment: <150 mg/dL, Normal 150-199 mg/dL, Borderline high 200-499 mg/dL, High >499 mg/dL, Very high Performed By: #### 2 4323-8, 6-3, LIPNF #### [facility] CLIA [id number] [address] [place] [address] [place] VLDL CHOLESTEROL, NF 26 mg/dL Normal <30 [facility] Comment on above: Order Comment: Kailash montoya Type: BLOOD SPECIMEN Ordering Facility: [facility] Address: [address] [place] [address] Performed By: #### 2 4323-8, 3016-3, LIPNF #### [facility] CLIA [id number] [address] [place] [address] [place] TSH SerPl-aCncon 05-29-2025 TSH Qn 0.676 m[IU]/L Normal 0.270-4.200 [facility] Comment on above: Order Comment: Kailash montoya Type: BLOOD SPECIMEN Ordering Facility: [facility] Address: [address] [place] [address] Result Comment: If t he patient is , TSH reference range varies by gestational period: First Trimester (weeks 9-12): 0.180-2.990 mIU/L Second Trimester: 0.110-3.980 mIU/L Third Trimester: 0.480-4.710 mIU/L Teto Hoskins et al. A Practical Approach for the Verifications and Determination of Site- and Trimester-Specific Reference Intervals for Thyroid Function tests in . Thyroid, 2019:29:3:412-420. Arturo E, et al. 2017 Guidelines of the [place] Thyroid Association for the Diagnosis and Management of Thyroid Disease during and the . Thyroid, 2017:27:3:315-389. Performed By: #### 2 4323-8, 3016-3, LIPNF #### [facility] CLIA [id number] [address] [place] [address] OF [place] CNOVon 05-21-2025 CNOV Office Visit (SPAGBA ) GRISELDA CONCEPCION ([id number]) 1980 F T Date Time Provider Department 05/21/25 11:30 AM MITZI ACEVEDO During your visit today, we recorded the following information about you: Pulse Respiration Normal [facility] CNOVon 04-18-2025 CN Office Visit (FAMPWS ) GRISELDA CONCEPCION ([id number]) 1980 [facility] Date Time Provider Department 04/18/25 6:20 PM EDGARD GÓMEZ [facility] During your visit today, we recorded the following information about you: Pulse Respiration Blood pressure Weight 98/minute 16/minute 108/70 68.4 kg Height 1.753 m Edgard Gómez, REZA.MECHANICAL DEVELOPMENT ENGINEER 04/18/2025 6:11 PM Signed Chief Complaint Patient presents with: Yearly Exam HPI Griselda Concepcion is a 45 year old female who presents here today for Above Complaints. Patient presents for annual physical. Patient has not be seen in 2 years and is currently off her atorvastatin, albuterol and zoloft. Past medical history, appointments, medications, allergies reviewed. [...] on File Prior to Visit Medication Sig famotidine (PEPCID) 20 mg tablet Take 1 [...] on file prior to visit. Social History SOCIAL HISTORY[1] Review of Symptoms REVIEW OF SYSTEMS SEE HPI EXAM: BP 108/70 Pulse 98 Resp 16 Ht 175.3 cm (5' 9) Wt 68.4 kg (150 lb 12.7 oz) LMP 11/27/2024 SpO2 96% BMI 22.27 kg/m? General Appearance: Well appearing, alert, in no acute distress, well-hydrated, well nourished. Skin: Skin color, texture, turgor normal, no suspicious rashes or lesions. Lungs: Lungs clear to auscultation. No wheezing, rhonchi, rales.. Heart: RRR without murmur, gallop, or rubs. No ectopy. Abdomen: Normal abdominal exam, Abdomen soft, non-tender. Bowel sounds normal. No masses, organomegaly. Musculoskeletal: No joint swelling, deformity, or tenderness. Peripheral Pulses: Normal. Neurologic: Gait normal. Reflexes normal and symmetric. Sensation grossly intact. Health Maintenance List Anxiety Screening Never done Hepatitis B Vaccine(1 of (more content not included)... Normal [facility] Emergency Department Summary on 04-14-2025 Emergency Department Summary [facility] Medical Records Department [address] [place] [address] Emergency Department Summary 04/14/25 MR#: [id number] Acct: [id number] Name: GRISELDA CONCEPCION Rep #: [id number] : 1980 45 From: Reilly Fulton DO PCP: Dr. Adrian Ley MD Status:DEP ER Location: ED HPI History of Present Illness Chief Complaint: Back Detail of Chief Complaint: Back pain Informant: patient Narrative Narrative: Patient presents with lower back pain that started last evening. 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 She has history of sciatica. Describes pain in the low back at times radiating to her buttocks and the back of the upper legs bilaterally. Patient denies recent injury. Denies fever chills or sweats. She denies dysuria urgency or frequency. She has an appointment to see her PCP in 4 days. She has had similar discomfort in the past. Pain is positional and worse with certain movements especially when bending or drawing her legs up. [facility] Medical History Hx LEEP (loop electrosurgical excision [...] spasm 3 Unknown Rx days #9 tabs cyclobenzaprine 10 mg tablet 10 mg PO TID PRN Muscle Spasm #20 04/14/25 Unknown Rx TABLETS hydrocodone-acetaminop hen 5-325mg 1 tab PO Q4H PRN PRN Pain 2 days 04/14/25 Unknown Rx 5mg-325mg #10 TABLETS Allergy/AdvReac Type Severity Reaction Status Date / Time erythromycin base Allergy Hives Verified 04/14/25 12:43 (Erythromycin Base) ketorolac tromethamine (From Allergy Rash Verified 04/14/25 12:43 Toradol) naproxen (From Naprosyn) Allergy Rash Verified 04/14/25 12:43 Family History Mother Uterine cancer Hypertension Hyperlipidemia [...] at home: Yes additional social history: Gloria QUICK ROS ED Review of Systems ROS Unobtainable: other Constitutional Constitutional ED: Reports lethargy; Denies chills, fever(s), sweats or weight loss Eyes Eyes: Denies blurry vision, change in vision or diplopia ENT ENT ED: Denies rhinorrhea or sore throat Cardiovascular Cardiovascular: Denies chest pain, orthopnea or racing heartbeat Respiratory/Chest Respiratory/Chest: Denies cough, dyspnea, dyspnea on exertion, orthopnea or sputum Gastrointestinal Gastrointestinal: Denies abdominal pain, diarrhea, nausea or vomiting Genitourinary Genitourinary ED: Denies dysuria, hematuria or urinary frequency Musculoskeletal Musculoskeletal: Reports back pain; Denies arthralgias, myalgias or neck pain Integumentary Denies abscess, Abrasions or rash Neurologic Neurologic: Denies headache(s) or weakness Psychiatric Psychiatric: Denies anxiety, depression or suicidal thoughts Endocrine Endocrinology: Denies polydipsia, polyphagia or polyuria Hematologic/Lymphatic Hematologic/Lymphatic: Denies easy bleeding, easy bruising or lymphadenopathy Allergic/Immunologic Allergic/Immunologic ED: Denies mouth swelling, tongue swelling or urticaria EXAM Physical Exam Const Vital Signs: 04/14/25 (more content not included)... Normal [facility] CNOVon 01-14-2025 CNOV Office Visit (AGGBRC R) GRISELDA CONCEPCION ([id number]) 1980 F CHT Date Time Provider Department 01/14/25 10:30 AM BETSY JALLOH AGGBRCR During your visit today, we recorded the [...] On doxy. Saw ID who agreed with correction doxy for now. Discussed importance of smoking cessation for resolution of infection. Lifetime risk 22.6%, Breast density BIRADS B. Due for mammograms in 6 months. No tamoxifen given current smoking. Follow up with [facility]. Betsy Jalloh MD Referring Provider: EKTA LEY [[id number]] Allergies As of Date: 01/14/2025 Noted Allergy [...] inner quadrant of left breast [N63.22] Order(s):SARAH DIAG W LUIS ALFREDO BILATERAL [[id number]] Order #: [id number] FUTURE Prescriptions as of 01/14/2025 - doxycycline [...] abscess [N61.1] (more content not included)... Normal [facility] Tacos 12-20-2024 SHYANNE Telephone (AGGBRCR) GRISELDA CONCEPCION ([id number]) 1980 F T Date Time Provider Department 12/20/24 JALLOH BETSYGABRIELLE DALY During your visit today, we recorded the [...] Fully Assessed Reason for Visit: Patient Question [7407] Prescriptions as of 12/20/2024 - doxycycline hyclate [...] Status:Closed by GERARDO FARRAR on 12/20/24 Normal [facility] C-REACTIVE PROTEINon 025 CRP [Mass/Vol] 0.9 mg/dL High [facility] - 0.9 mg/dL [facility] CBC W Auto Differential pane l (Bld)on 12-12-2024 Basophils (Bld) [#/Vol] 0.05 10*3/uL [facility] Basophils/100 WBC (Bld) 0.5 % [facility] Differential cell count method Nom (Bld) Auto [facility] Eosinophils (Bld) [#/Vol] 0.23 10*3/uL [facility] Eosinophils/100 WBC (Bld) 2.3 % [facility] Erythrocyte distribution width (RBC) [Ratio] 12.2 % 11.5 - 15.0 % [facility] Hematocrit (Bld) [Volume fraction] 46.6 % High 36.0 - 46.0 % [facility] Hemoglobin (Bld) [Mass/Vol] 15.5 g/dL 11.5 - 15.5 g/dL [facility] Immature granulocytes (Bld) [#/Vol] 0.08 10*3/uL [facility] Immature granulocytes/100 WBC (Bld) 0.8 % [facility] Interpretation and review of laboratory results Abnormal [facility] Lymphocytes (Bld) [#/Vol] 2.69 10*3/uL [facility] Lymphocytes/100 WBC (Bld) 26.7 % [facility] MCH (RBC) [Entitic mass] 31.1 pg 26.0 - 34.[address] [facility] MCHC (RBC) [Mass/Vol] 33.3 g/dL 30.5 - 36.0 g/dL [facility] MCV (RBC) [Entitic vol] 93.4 fL 80.0 - 100.[address] [facility] Monocytes (Bld) [#/Vol] 0.74 10*3/uL [facility] Monocytes/100 WBC (Bld) 7.4 % [facility] Neutrophils (Bld) [#/Vol] 6.27 10*3/uL [facility] Neutrophils/100 WBC (Bld) 62.3 % [facility] Nucleated RBC (Bld) [#/Vol] [facility] Nucleated RBC/100 WBC (Bld) [Ratio] 0 % /[address] [facility] Platelet mean volume (Bld) [Entitic vol] 8.6 fL Low 9.0 - 12.[address] [facility] Platelets (Bld) [#/Vol] 295 10*3/uL [facility] RBC (Bld) [#/Vol] 4.99 10*6/uL 3.90 - 5.2 0 m/uL [facility] WBC (Bld) [#/Vol] 10.06 10*3/uL [facility] Basophils (Bld) [#/Vol] 0.05 10*3/uL Normal <0.11 [facility] Comment on above: Order Comment: Speci men Type: BLOOD SPECIMENOrdering Facility: [facility] Address: [address] [place] [address] Performed By: #### 5 7021-8 ####[facility]LECLIA [id number] [address] [place] Basophils/100 WBC (Bld) 0.5 % Normal [facility] Comment on above: Order Comment: Speci men Type: BLOOD SPECIMENOrdering Facility: [facility] Address: [address] [place] [address] Performed By: #### 5 7021-8 ####[facility]ORATORYCLIA [id number] [address] OF [facility] Differential cell count method Nom (Bld) Auto Normal [facility] Comment on above: Order Comment: Speci men Type: BLOOD SPECIMENOrdering Facility: [facility] Address: [address] [place] [address] Performed By: #### 5 7021-8 ####[facility]ORATORYCLIA [id number] [address] [place] Eosinophils (Bld) [#/Vol] 0.23 10*3/uL Normal <0.46 [facility] Comment on above: Order Comment: Speci men Type: BLOOD SPECIMENOrdering Facility: [facility] Address: [address] [place] [address] Performed By: #### 5 7021-8 ####[facility]ATORYCLIA [id number] [address] Eosinophils/100 WBC (Bld) 2.3 % Normal [facility] Comment on above: Order Comment: Speci men Type: BLOOD SPECIMENOrdering Facility: [facility] Address: [address] [place] [address] Performed By: #### 5 7021-8 ####[facility]ATORYCLIA [id number] [address] Erythrocyte distribution width (RBC) [Ratio] 12.2 % Normal 11.5-15.0 [facility] Comment on above: Order Comment: Speci men Type: BLOOD SPECIMENOrdering Facility: [facility] Address: [address] [place] [address] Performed By: #### 5 7021-8 ####[facility]ORATORYCLIA [id number] [address] [place] Hematocrit (Bld) [Volume fraction] 46.6 % High 36.0-46.0 [facility] Comment on above: Order Comment: Speci men Type: BLOOD SPECIMENOrdering Facility: [facility] Address: [address] [place] [address] Performed By: #### 5 7021-8 ####[facility]ATORYCLIA [id number] [address] [place] Hemoglobin (Bld) [Mass/Vol] 15.5 g/dL Normal 11.5-15.5 [facility] Comment on above: Order Comment: Speci men Type: BLOOD SPECIMENOrdering Facility: [facility] Address: [address] [place] [address] Performed By: #### 5 7021-8 ####[facility]ATORYCLIA [id number] [address] [place] Immature granulocytes (Bld) [#/Vol] 0.08 10*3/uL Normal <0.10 [facility] Comment on above: Order Comment: Speci men Type: BLOOD SPECIMENOrdering Facility: [facility] Address: [address] [place] [address] Performed By: #### 5 7021-8 ####[facility]ATORYCLIA [id number] [address] OF [place] Immature granulocytes/100 WBC (Bld) 0.8 % Normal [facility] Comment on above: Order Comment: Speci men Type: BLOOD SPECIMENOrdering Facility: [facility] Address: [address] [place] [address] Performed By: #### 5 7021-8 ####[facility]ORATORYCLIA [id number] [address] [place] Lymphocytes (Bld) [#/Vol] 2.69 10*3/uL Normal 1.00-4.00 [facility] Comment on above: Order Comment: Speci men Type: BLOOD SPECIMENOrdering Facility: [facility] Address: [address] [place] [address] Performed By: #### 5 7021-8 ####[facility]ORATORYCLIA [id number] [address] Lymphocytes/100 WBC (Bld) 26.7 % Normal [facility] Comment on above: Order Comment: Speci men Type: BLOOD SPECIMENOrdering Facility: [facility] Address: [address] [place] [address] Performed By: #### 5 7021-8 ####[facility]ATORYCLIA [id number] [address] STATES [facility] MCH (RBC) [Entitic mass] 31.1 pg Normal 26.0-34.0 [facility] Comment on above: Order Comment: Speci men Type: BLOOD SPECIMENOrdering Facility: [facility] Address: [address] [place] [address] Performed By: #### 5 7021-8 ####[facility]ATORYCLIA [id number] [address] STATES [facility] MCHC (RBC) [Mass/Vol] 33.3 g/dL Normal 30.5-36.0 [facility] Comment on above: Order Comment: Speci men Type: BLOOD SPECIMENOrdering Facility: [facility] Address: [address] [place] [address] Performed By: #### 5 7021-8 ####[facility]ATORYCLIA [id number] [address] MCV (RBC) [Entitic vol] 93.4 fL Normal 80.0-100.0 [facility] Comment on above: Order Comment: Speci men Type: BLOOD SPECIMENOrdering Facility: [facility] Address: [address] [place] [address] Performed By: #### 5 7021-8 ####[facility]ATORYCLIA [id number] [address] Monocytes (Bld) [#/Vol] 0.74 10*3/uL Normal <0.87 [facility] Comment on above: Order Comment: Speci men Type: BLOOD SPECIMENOrdering Facility: [facility] Address: [address] [place] [address] Performed By: #### 5 7021-8 ####[facility] LABORATORYCLIA [id number] [address] STATES OF [facility] Monocytes/100 WBC (Bld) 7.4 % Normal [facility] Comment on above: Order Comment: Speci men Type: BLOOD SPECIMENOrdering Facility: [facility] Address: [address] [place] [address] Performed By: #### 5 7021-8 ####[facility]ATORYCLIA [id number] [address] Neutrophils (Bld) [#/Vol] 6.27 10*3/uL Normal 1.45-7.50 [facility] Comment on above: Order Comment: Speci men Type: BLOOD SPECIMENOrdering Facility: [facility] Address: [address] [place] [address] Performed By: #### 5 7021-8 ####[facility]ATORYCLIA [id number] [address] Neutrophils/100 WBC (Bld) 62.3 % Normal [facility] Comment on above: Order Comment: Speci men Type: BLOOD SPECIMENOrdering Facility: [facility] Address: [address] [place] [address] Performed By: #### 5 7021-8 ####[facility]ATORYCLIA [id number] [address] [place] Nucleated RBC (Bld) [#/Vol] 10*3/uL Normal <0.01 [facility] Comment on above: Order Comment: Speci men Type: BLOOD SPECIMENOrdering Facility: [facility] Address: [address] [place] [address] Performed By: #### 5 7021-8 ####[facility]ORATORYCLIA [id number] [place] [address] [place] Nucleated RBC/100 WBC (Bld) [Ratio] 0.0 /100 WBC Normal [facility] Comment on above: Order Comment: Speci men Type: BLOOD SPECIMENOrdering Facility: [facility] Address: [address] [place] [address] Performed By: #### 5 7021-8 ####[facility]ORATORYCLIA [id number] [place] [address] [place] Platelet mean volume (Bld) [Entitic vol] 8.6 fL Low 9.0-12.7 [facility] Comment on above: Order Comment: Speci men Type: BLOOD SPECIMENOrdering Facility: [facility] Address: [address] [place] [address] Performed By: #### 5 7021-8 ####[facility]ATORYCLIA [id number] [address] [place] Platelets (Bld) [#/Vol] 295 10*3/uL Normal 150-400 [facility] Comment on above: Order Comment: Speci men Type: BLOOD SPECIMENOrdering Facility: [facility] Address: [address] [place] [address] Performed By: #### 5 7021-8 ####[facility]ATORYCLIA [id number] [place] [address] [place] RBC (Bld) [#/Vol] 4.99 10*6/uL Normal 3.90-5.20 [facility] Comment on above: Order Comment: Speci men Type: BLOOD SPECIMENOrdering Facility: [facility] Address: [address] [place] [address] Performed By: #### 5 7021-8 ####[facility]ORATORYCLIA [id number] [address] [place] WBC (Bld) [#/Vol] 10.06 10*3/uL Normal 3.70-11.00 [facility] Comment on above: Order Comment: Speci men Type: BLOOD SPECIMENOrdering Facility: [facility] Address: [address] [place] [address] Performed By: #### 5 7021-8 ####[facility] LABORATORYIA [id number] [place] [address] [facility] CNOVon 12-12-2024 CNOV Office Visit (INFDAK ) GRISELDA CONCEPCION ([id number]) 1980 F [facility] Date Time Provider Department 12/12/24 9:00 AM CAHN APPLE INFDAK During your visit today, we [...] has reported, the patient will see a bread baker for evaluation soon. Regarding amoxicillin, the patient [...] warmth at the site, as noted by [facility]. The culture revealed the presence [...] Class 1 (more content not included)... Normal [facility] CRP SerPl-mCncon 12-12-2024 CRP [Mass/Vol] 0.9 mg/dL High <0.9 [facility] Comment on above: Order Comment: Speci men Type: BLOOD SPECIMENOrdering Facility: [facility] Address: [address] [place] [address] Performed By: #### 2 4323-8, 1988-01 ####[facility]ORATORYCLIA [id number] [place] [id number] [place] Comprehensive metabolic 2000 panelon 12-12-2024 Albumin [Mass/Vol] 3.7 g/dL Low 3.9 - 4.9 g/dL [facility] ALP [Catalytic activity/Vol] 78 U/L 34 - 123 U/L [facility] ALT With P-5'-P [Catalytic activity/Vol] U/L Low 7 - 38 U/L [facility] Anion gap [Moles/Vol] 11 mmol/L 8 - 15 mmol/L [facility] AST With P-5'-P [Catalytic activity/Vol] 10 U/L Low 13 - 35 U/L [facility] Bilirubin [Mass/Vol] 0.2 mg/dL 0.2 - 1.3 mg/dL [facility] Calcium [Mass/Vol] 9.8 mg/dL 8.5 - 10. 2 mg/dL [facility] Chloride [Moles/Vol] 101 mmol/L 98 - 107 mmol/L [facility] CO2 [Moles/Vol] 26 mmol/L 22 - 30 mmol/L [facility] Creatinine [Mass/Vol] 0.66 mg/dL 0.58 - 0.96 mg/dL [facility] GFR/1.73 sq M.predicted among non-blacks MDRD (S/P/Bld) [Vol rate/Area] 112 mL/min/{1.73_m2} - PINF [facility] Comment on above: Estimated Glomerular Filtration [...] [Mass/Vol] 81 mg/dL 74 - 99 mg/dL [facility] Comment on above: The [place] Diabete s Association (ADA) provides guidance for [...] Standards of Medical Care in Diabetes 2016, [place] [employer]. Diabetes Care. 2016.39(Suppl 1). Potassium [Moles/Vol] 4.2 mmol/L 3.7 - 5.1 mmol/L [facility] Protein [Mass/Vol] 7.1 g/dL 6.3 - 8.0 g/dL [facility] Sodium [Moles/Vol] 138 mmol/L 136 - 144 mmol/L [facility] Urea nitrogen [Mass/Vol] 9 mg/dL 7 - 21 mg/dL [facility] Albumin [Mass/Vol] 3.7 g/dL Low 3.9-4.9 [facility] Comment on above: Order Comment: Speci men Type: BLOOD SPECIMENOrdering Facility: [facility] Address: [address] [place] [address] Performed By: #### 2 43211-10, 1988-01 ####[facility]ORATORYCLIA [id number] [place] [address] [place] ALP [Catalytic activity/Vol] 78 U/L Normal 34-123 [facility] Comment on above: Order Comment: Speci men Type: BLOOD SPECIMENOrdering Facility: [facility] Address: [address] [place] [address] Performed By: #### 2 4323-04, 1988-01 ####[facility]ORATORYCLIA [id number] [address] [place] ALT With P-5'-P [Catalytic activity/Vol] U/L Low 7-38 [facility] Comment on above: Order Comment: Speci men Type: BLOOD SPECIMENOrdering Facility: [facility] Address: [address] [place] [address] Performed By: #### 2 4323-04, 1988-01 ####[facility]ORATORYCLIA [id number] [address] [place] Anion gap [Moles/Vol] 11 mmol/L Normal 8-15 [facility] Comment on above: Order Comment: Speci men Type: BLOOD SPECIMENOrdering Facility: [facility] Address: [address] [place] [address] Performed By: #### 2 4323-04, 1988-01 ####[facility]ORATORYCLIA [id number] [place] [id number] [place] AST With P-5'-P [Catalytic activity/Vol] 10 U/L Low 13-35 [facility] Comment on above: Order Comment: Speci men Type: BLOOD SPECIMENOrdering Facility: [facility] Address: [address] [place] [address] Performed By: #### 2 4323-04, 1988-01 ####[facility] LABORATORYCLIA [id number] [place] [address] [place] Bilirubin [Mass/Vol] 0.2 mg/dL Normal 0.2-1.3 [facility] Comment on above: Order Comment: Speci men Type: BLOOD SPECIMENOrdering Facility: [facility] Address: [address] [place] [address] Performed By: #### 2 4323-04, 1988-01 ####[facility]ORATORYCLIA [id number] [place] [address] [place] Calcium [Mass/Vol] 9.8 mg/dL Normal 8.5-10.2 [facility] Comment on above: Order Comment: Speci men Type: BLOOD SPECIMENOrdering Facility: [facility] Address: [address] [place] [address] Performed By: #### 2 4323-04, 1988-01 ####[facility]ORATORYCLIA [id number] [place] [address] [place] Chloride [Moles/Vol] 101 mmol/L Normal 98-107 [facility] Comment on above: Order Comment: Speci men Type: BLOOD SPECIMENOrdering Facility: [facility] Address: [address] [place], [place] [address] Performed By: #### 2 4323-04, 1988-01 ####[facility]ORATORYCLIA [id number] [place] [id number] [place] CO2 [Moles/Vol] 26 mmol/L Normal 22-30 [facility] Comment on above: Order Comment: Speci men Type: BLOOD SPECIMENOrdering Facility: [facility] Address: [address] [place], [place] [address] Performed By: #### 2 4323-04, 1988-01 ####[facility]ATORYCLIA [id number] [place] [address] [place] Creatinine [Mass/Vol] 0.66 mg/dL Normal 0.58-0.96 [facility] Comment on above: Order Comment: Elliottkarolina montoya Type: BLOOD SPECIMENOrdering Facility: [facility] Address: [address] [place] [address] Performed By: #### 2 4323-8, 1988-01 ####[facility]LECLIA [id number] [place] [id number] [place] Creatinine and Glomerular filtration rate.predicted panel (S/P/Bld) 112 mL/min/1.73m??? Normal >=60 [facility] Comment on above: Order Comment: Kailash montoya Type: BLOOD SPECIMENOrdering Facility: [facility] Address: [address] [place] [address] Result Comment: Edwina mated Glomerular Filtration Rate [...] reflect actual GFR. Performed By: #### 2 4323-8, 1988-01 ####[facility] HOSPITALIA [id number] [place] [id number] [place] Glucose [Mass/Vol] 81 mg/dL Normal 74-99 [facility] Comment on above: Order Comment: Elliottkarolina montoya Type: BLOOD SPECIMENOrdering Facility: [facility] Address: [address] [place] [address] Result Comment: The [place] Diabetes Association (ADA) provides guidance for cutoff [...] Standards of Medical Care in Diabetes 2016, [place] [employer]. Diabetes Care. 2016.39(Suppl 1). Performed By: #### 2 43211-10, 1988-01 ####[facility] LABORATORYCLIA [id number] [place] [address] [place] Potassium [Moles/Vol] 4.2 mmol/L Normal 3.7-5.1 [facility] Comment on above: Order Comment: Speci men Type: BLOOD SPECIMENOrdering Facility: [facility] Address: [address] [place] [address] Performed By: #### 2 4323-04, 1988-01 ####[facility]ORATORYCLIA [id number] [place] [address] [place] Protein [Mass/Vol] 7.1 g/dL Normal 6.3-8.0 [facility] Comment on above: Order Comment: Speci men Type: BLOOD SPECIMENOrdering Facility: [facility] Address: [address] [place] [address] Performed By: #### 2 4323-04, 1988-01 ####[facility]ORATORYCLIA [id number] [place] [address] [place] Sodium [Moles/Vol] 138 mmol/L Normal 136-144 [facility] Comment on above: Order Comment: Speci men Type: BLOOD SPECIMENOrdering Facility: [facility] Address: [address] [place] [address] Performed By: #### 2 4323-04, 1988-01 ####[facility]ATORYCLIA [id number] [place] [id number] [place] Urea nitrogen [Mass/Vol] 9 mg/dL Normal 7-21 [facility] Comment on above: Order Comment: Speci men Type: BLOOD SPECIMENOrdering Facility: [facility] Address: [address] [place] [address] Performed By: #### 2 4323-04, 1988-01 ####[facility]ORATORYCLIA [id number] [place] [id number] [place] No Panel Informationon 12-12 Interpretation and review of laboratory results Abnormal [facility] CNCOon 12-11-2024 CNCO Letter Text Normal [facility] CNOVon 12-11-2024 CNOV Office Visit (AGGBR R) GRISELDA CONCEPCION ([id number]) 1980 F CHT Date Time Provider Department 12/11/24 10:15 AM BETSY JALLOH AGGBRCR During your visit today, we recorded the [...] Betsy Jalloh MD Referring Provider: EKTA LEY [[id number]] Allergies As of Date: 12/11/2024 Noted Allergy [...] Order(s):CONSULT TO INFECTIOUS DISEASES [9016] Order #: [id number]: 1 FUTURE doxycycline hyclate (VIBRAMYCIN) 100 mg [...] antepartum [O (more content not included)... Normal [facility] CNPNon 12-07-2024 CNPN Telephone (SunrunCR) GRISELDA CONCEPCION ([id number]) 1980 F CHT Date Time Provider Department 12/07/24 JALLOH, BETSY M [facility]GGBRYN [facility] During your visit today, we recorded [...] Date Reviewed: 12/03/2024 Reviewed by: Anika De León RN - Fully Assessed Reason for Visit: Patient Question [0997] Prescriptions as of 12/07/2024 - famotidine (PEPCID) [...] by GERARDO FARRAR on 12/07/24 [facility] ANES POSTPROC EVALon 025 ANES POSTPROC EVAL HNO ID: [id number] Author: FLASH TUCKER MD Service: Anesthesiology Author Type: Physician Type: Anesthesia Postprocedure Evaluation Filed: 12/03/2024 14:10 Note Text: POST ANESTHESIA EVALUATION NOTE : 1980 Procedure Summary Date: 12/03/24 Room / Location: [place] OR 61 [place] [address] OR Anesthesia Start: 1256 Anesthesia Stop: Procedure: [...] December 03, 2024 TIME: 2:09 PM CSN: [id number] Normal [facility] ANES PRE-OPon 12-03-2024 ANES PRE-OP HNO ID: [id number] Author: FLASH TUCKER MD Service: Anesthesiology Author Type: Physician Type: Anesthesia Preprocedure Evaluation Filed: 12/03/2024 12:29 Note Text: ANESTHESIOLOGY DAY OF SURGERY NOTE : 1980 Procedure Information Date/Time: 12/03/24 1330 Procedure: OPEN EXCISION OF BREAST LESION UNILATERAL FEMALE BREAST 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ORYCLIA [id number] [place] [address] [place] Bacteria Tiss Culton 025 Bacteria identified Cx Nom (Tiss) CULTURE, TISSUE: No growth 3 days GRAM STAIN: No cells or organisms seen Normal [facility] Comment on above: Performed By: #### 6 35-3, 13906-0 ####[facility]ATORYCLIA [id number] [place] [address] [place] HISTORY PHYSICALon HISTORY PHYSICAL HNO ID: [id number] Author: STELLA JOSEPH APRN.MECHANICAL DEVELOPMENT ENGINEER Service: ? Author Type: Nurse Practitioner Type: [...] 2015 left foot surgery TONSILLECTOMY PRIMARY/SECONDARY Tonsillectomy FAMILY [...] Yes atorvasta (more content not included)... Normal [facility] OPERATIVE NOon 12-03-2024 OPERATIVE NO HNO ID: [id number] Author: BETSY JALLOH MD Service: General Surgery Author Type: Physician Type: Operative Report Filed: 12/04/2024 09:41 Note Text: Attestation signed by Betsy Jalloh MD at 12/04/2024 9:41 AM Attestation: I was present for the critical and carias portions of the surgery and I was immediately available to provide assistance. Betsy Jalloh MD OPERATIVE REPORT LOG ID: [id number] SURGERY/PROCEDURE DATE: 12/03/2024 INCISION/PROCEDURE START TIME: 1:18 PM INCISION CLOSE/PROCEDURE END TIME: 1:41 PM SURGEON(S)/PROCEDURALI ST(S) AND EXTRUSION UTILITY WORKER(S): Surgeons and Role: * Betsy Jalloh MD - Primary * Su Granger MD - Fellow Internet Developer: Berenice Piña SA SURGERY/PROCEDURE(S): Procedure(s) with comments: [...] December 03, 2024 TIME: 2:08 PM Normal [facility] Pathology biopsy report Macho (Tiss)on 12-03-[address] [facility] Comment on above: Order Comment: Speci men Type: TISSUE SPECIMENOrdering Facility: [facility] Address: [address] [place] [address] Result Comment: Mary desouza Developed Test (LDT) Disclaimer: Performance characteristics of immunohistochemical, immunofluorescent, and chromogenic in-situ hybridization tests have been determined by the performing laboratory within [facility]'s [facility] Pathology and Laboratory Medicine Department ([facility], [facility], [facility], [facility], [facility], [facility], or [facility]) in a manner consistent with CLIA requirements. One or more of these tests may not have been cleared or approved by the FDA. [facility] is regulated under CLIA as qualified to perform high-complexity testing. These tests are used for clinical purposes. These should not be regarded as investigational or for research. Positive and negative controls stain appropriately. Performed By: #### 6 6121-5 ####[facility]ORATORYCLIA [id number] [address] CASE REPORT Normal [facility] Comment on above: Order Comment: Speci men Type: TISSUE SPECIMENOrdering Facility: [facility] Address: [address] [place] [address] Result Comment: Surg ical Pathology Report Case: [id number] Authorizing Provider: Betsy Jalloh MD Collected: 12/03/2024 01:29 PM Ordering Location: [place] [facility] [place] Received: 12/04/2024 08:51 AM Pathologist: Flash Polanco MD Specimen: Breast, Left, Excision of Lesion, left breast jennifer areolar chronic fistula Performed By: #### 6 6121-5 ####[facility]ORYCLIA [id number] [address] CLINICAL HISTORY Normal [facility] Comment on above: Order Comment: Speci men Type: TISSUE SPECIMENOrdering Facility: [facility] Address: [address] [place] [address] Result Comment: Pre- op diagnosis: Breast abscess [N61.1] Performed By: #### 6 6121-5 ####[facility]ATORYCLIA [id number] [address] FINAL DIAGNOSIS Normal [facility] Comment on above: Order Comment: Speci men Type: TISSUE SPECIMENOrdering Facility: [facility] Address: [address] [place] [address] Result Comment: A. B reast, left, periareolar fistula, excision: - Skin with patchy epidermal acute inflammation and abundant dermal chronic inflammation. - There is no evidence of malignancy. at 1329 EDT Performed By: #### 6 6121-5 ####[facility]ATORYCLIA [id number] [address] FINAL PERFORMING LAB Normal [facility] Comment on above: Order Comment: Speci men Type: TISSUE SPECIMENOrdering Facility: [facility] Address: [address] [place] [address] Result Comment: Diag nostic interpretation performed at: [facility], [address] [address] CLIA# [id number] Auto Mechanics Instructor: Denton Terry MD Performed By: #### 6 6121-5 ####[facility]ORATORYCLIA [id number] [address] GROSS DESCRIPTION Normal [facility] Comment on above: Order Comment: Speci men Type: TISSUE SPECIMENOrdering Facility: [facility] Address: [address], [place] [address] Result Comment: Bruce oconnort, Left, Excision of Lesion Received in formalin [...] is not given. Gross examination performed at [facility], [address] [place] [address] KVB December 04, 2024 11:26 AM Performed By: #### 6 6121-5 ####[facility]ORATORYCLIA [id number] [address] OF [facility] Emergency Department Summary on 11-29-2024 Emergency Department Summary [facility] Medical Records Department [address] [place] [address] Emergency Department Summary 11/29/24 MR#: [id number] Acct: [id number] Name: GRISELDA CONCEPCION Rep #: [id number] : 1980 44 From: Vj Nguyen DO [...] intact Psych: Cooperative, appropriate mood and affect [facility] Medical History Hx LEEP (loop electrosurgical excision [...] 50 mg tablet 50 mg PO DAILY 09/16/22 Unknown History cyclobenzaprine 5 mg tablet 5 [...] pain. On (more content not included)... Normal [facility] 11-28-2024 [facility] Telephone (AGGBRCR) GRISELDA CONCEPCION ([id number]) 1980 F CHT Date Time Provider Department 11/28/24 BETSY JALLOH AGGBRCR During your visit today, we recorded the following information about you: Jordyn Linn MA 11/28/2024 9:34 AM Signed Patient [...] Encounter Status:Closed by JORDYN LINN on 11/28/24 Normal [facility] CNCOon 11-27-2024 CNCO Letter Text [facility] CNOVon 11-27-2024 CNOV Office Visit (AGGBRC R) GRISELDA CONCEPCION ([id number]) 1980 F T Date Time Provider Department 11/27/24 1:45 PM BETSY JALLOH AGGBRCR During your visit today, we recorded the following information about you: Pulse Blood pressure Last Period 63/minute 105/68 11/27/24 Jennifer Rahman LPN 12/26/2024 8:48 AM Signed Patient presents for follow up after imaging.Patient stated soreness in the left breast.Patient stated yellowish drainage over the weekend from left breast. NITZA Cole Amanda M, MD 12/26/2024 8:48 AM Signed Betsy Jalloh MD [facility] [address] [place], [place] [id number] SUBJECTIVE Chief Complaint: Patient presents with: Follow Up Tests Results HPI Griselda Emeka Concepcion is a 44 year old female [...] B6, (VITAMI (more content not included)... Normal [facility] Sustain[employer] BREAST BioNitrogen LTon 11-27 [facility] SustainU BREAST BioNitrogen LT * * *Final Report* * * DATE OF EXAM: Nov 27 2024 1:14PM [facility] 0593 - [facility] SustainU BREAST BioNitrogen LT / PROCEDURE REASON: Mass of upper inner quadrant of left breast * * * * Physician Interpretation * * * * [facility] [address] [facility] [address] #[id number] - [facility] [employer]U BREAST BioNitrogen LT HISTORY: 44 year-old patient seen for [...] Haley Jon M.D. Electronically signed on: 11/27/2024 Grinder: JEFERSON Transcribe Date/Time: Nov 27 2024 1:09P Dictated by : HALEY JON MD This examination was interpreted and the report reviewed and electronically signed by: HALEY JON MD on Nov 27 2024 1:28PM EST [id number] Normal [facility] US Breast - left limitedon 0 11-27-2024 [...] Haley Jon M.D. Electronically signed on: 11/27/2024 Grinder: JEFERSON Transcribe Date/Time: Nov 27 2024 1:09P Dictated by : HALEY JON MD This examination was interpreted and the report reviewed and electronically signed by: HALEY JON MD on Nov 27 2024 1:28PM EST [email or web address] * * *Final Report* * * DATE OF EXAM: Nov 27 2024 1:14PM [facility] 0593 - SARAH US BREAST LTD LT / PROCEDURE REASON: Mass of upper inner quadrant of left breast * * * * Physician Interpretation * * * * [facility] [address] [place] [address] #[id number] [employer] [facility] S[employer]U BREAST LTD LT HISTORY: 44 year-old patient [...] to 0.4 cm in maximum cortical thickness. [facility] Provider, [facility] - 11/27/2024 * * *Final Report* * * DATE OF EXAM: Nov 27 2024 1:14PM [facility] 0593 [employer] BREAST LTD LT / PROCEDURE REASON: Mass of upper inner quadrant of left breast * * * * Physician Interpretation * * * * [facility] [address] [place] [address] #[id number] - [employer] BREAST LTD LT HISTORY: 44 year-old patient [...] Haley Jon M.D. Electronically signed on: 11/27/2024 Grinder: JEFERSON Transcribe Date/Time: Nov 27 2024 1:09P Dictated by : HALEY JON MD This examination was interpreted and the report reviewed and electronically signed by: HALEY JON MD on Nov 27 2024 1:28PM EST [facility] Radiology Study observation (narrative) [facility] US Breast - left limitedOrde red By: Ccf Provider on 11-27-[address] [facility] CNOVon 11-20-2024 CNOV Office Visit (FAMPWS ) GRISELDA CONCEPCION ([id number]) 1980 F CHT Date Time Provider Department 11/20/24 4:00 PM EDGARD GÓMEZ During your visit today, we recorded the following information about you: Pulse Blood pressure Weight 78/minute 113/67 70 kg Edgard Gómez APRN.CNP 11/20/2024 3:54 PM Signed Chief Complaint Patient presents with: Cough Fatigue Head Congestion HPI Griselda Emeka Concepcion is a 44 year old female who presents here today for Above Complaints.. Patient presents for head congestion, fatigue, and cough x3 days. Reports she called off work yesterday and today. Reports she works at a [employer] and comes into contact with viral illnesses. [...] 2016 left foot surgery TONSILLECTOMY PRIMARY/SECONDARY Tonsillectomy Family [...] done Anxi (more content not included)... Normal [facility] CNOVon 11-06-2024 CNOV Office Visit (AGGBRC R) GRISELDA CONCEPCION ([id number]) 1980 F CHT Date Time Provider Department 11/06/24 2:30 PM BETSY JALLOH AGGBRYN [facility] During your visit today, we recorded the following information about you: Pulse Blood pressure 66/minute 106/57 Jennifer Rahman LPN 11/19/2024 8:16 AM Signed New patient being seen for history of breast cysts .Patient stated she had multiple biopsies and breast surgeries. Patient stated pain 11/12 NITZA Cole Amanda M, MD 11/19/2024 8:16 AM Signed Betsy Jalloh MD [place] [phone] SUBJECTIVE Chief Complaint: Patient presents with: New [...] tablet by (more content not included)... Normal [facility] Surgery Visit Reporton 09-11 Surgery Visit Report [facility] [address] [place], [place] [address] OFFICE VISIT Date of Service: 09/11/24 MR#: [id number] Acct: [id number] Name: GRISELDA CONCEPCION Rep #: [id number] : 1980 Provider: Dr. Darian sheets MD Age/Sex: 44/F Location: [facility] Status: Signed Intake Vital Signs 08/06/24 08:15 [...] Yes depre (more content not included)... Normal [facility] Surgery Visit Reporton 08-14 Surgery Visit Report [facility] [address] [place] [address] OFFICE VISIT Date of Service: 08/14/24 MR#: [id number] Acct: [id number] Name: GRISELDA CONCEPCION Rep #: [id number] : 1980 Provider: Dr. Darian sheets MD Age/Sex: 44/F Location: [facility] Status: Signed Intake Vital Signs 08/06/24 08:15 [...] Hyperlipidemia Pulmonary embolism and infarction Social History alcohol intake: never substance use type: does [...] heart stent, palpita (more content not included)... Normal [facility] Culture, Anaerobic Any [facility] kim 08-12-2024 CUAN #1 Studies have confirmed [...] has been changed. 08/18/24 1553 by GRACIA Normal [facility] Comment on above: Performed By: #### M 100.3000, M100.1999, M100.4001 #### [facility] Laboratory [address] [place], [place], [id number] Wound Cultureon 08-09-2024 WC Previously Actinomyc es turicensis. If Gram Positive Quinn susceptibility studies are desired, contact the Microbiology Laboratory within 48 hours [phone]. Wound Culture Schaalia turicensis Amount Growth 1+ [facility] Comment on above: Performed By: #### M 100.3000, M100.1999, M100.4001 #### [facility] [address] [place], [place], [id number] Bacteria identified Anaer cx Nom (Unsp spec)Ordered By: Betsy Min on 08-06-2024 Anaerobic Culture Anaerobic cocci Abnormal [facility] Anaerobic Culture Clostridium group Abnormal [facility] Gram Stainon 08-06-2024 GS Gram Stain 3+ White Blood Cells No organisms seen Normal [facility] Comment on above: Performed By: #### M 100.3000, M100.2000, M100.4001 #### [facility] [address] [place], [address] Gram stainOrdered By: Betsy Min on 08-06-2024 Microscopic observation Gram stain Nom (Unsp spec) [facility] Routine wound cultureOrdered By: Betsy Min on 08-06-2024 Wound Culture Schaalia turicensis Abnormal [facility] Surgery Visit Reporton 08-06 Surgery Visit Report [facility] [address] [place] [address] OFFICE VISIT Date of Service: 08/06/24 MR#: [id number] Acct: [id number] Name: GRISELDA CONCEPCION Rep #: [id number] : 1980 Provider: TIGRE dsouza Age/Sex: 44/F Location: [facility] Status: Signed with Addenda ADDENDUM by TIGRE [...] (From Naprosyn) Allergy (Verified 08/06/24 08:28) Rash [facility] Medical History Hx LEEP (loop electrosurgical excision [...] any pocket (more content not included)... Normal [facility] Culture, Anaerobic Any [facility] kim 07-16-2024 CUAN Anaerobic non-spore forming gram positive rods are usually SUSCEPTIBLE to Beta-lactams and Beta-lactamase inhibitors, Linezolid, and Daptomycin. They are usually RESISTANT to Metronidazole. Schaalia turicensis Normal [facility] Comment on above: Performed By: #### M 100.2000, M100.3000, M100.4001 #### [facility] [address] [place], [address] Wound Cultureon 07-14-2024 #2 Organism is too fastidious for routine susceptibility studies. Staphylococcus hominis hominis Amount Growth Very Rare Schaalia turicensis Schaalia turicensis Staphylococcus hominis hominis: REACTION cefOXitin Susc Islt NEG Clindamycin Islt AUSTYN 0.25 Clindamycin.induced Susc Islt NEG Erythromycin Islt AUSTYN >=8 R Gentamicin Islt AUSTYN <=0.5 S Oxacillin Susc Islt <=0.25 S Tetracycline Islt AUSTYN <=1 S Vancomycin Islt AUSTYN <=0.5 S Normal [facility] Comment on above: Performed By: #### M 100.2000, M100.3000, M100.4001 #### [facility] [address] [place], [address] Gram Stainon 07-11-2024 GS Gram Stain Rare Red Blood Cells No organisms seen Normal [facility] Comment on above: Performed By: #### M 100.2000, M100.3000, M100.4001 #### [facility] [address] [place], [address] Surgery Visit Reporton 07-10 Surgery Visit Report [facility] [address] [place], [place] [address] OFFICE VISIT Date of Service: 07/10/24 MR#: [id number] Acct: [id number] Name: GRISELDA CONCEPCION Rep #: [id number] : 1980 Provider: Dr. Darian sheets MD Age/Sex: 44/F Location: [facility] Status: Signed Intake Vital Signs 06/14/24 15:54 [...] a BI-RADS 0. Follow-up ultrasound obtained on (more content not included)... Normal [facility] Breast Limited Unilateralon 07-03-2024 Breast Limited Unilateral [facility] Imaging Services [address] [place] [address] Breast Limited Unilateral MR#: [id number] Acct: [id number] Name: GRISELDA CONCEPCION Rep #: [id number] : 1980 F 44 From: Ron gallagher MD PCP: Dr. dArian Ley MD Status: REG CLI Study: Breast Limited Unilateral Date of Exam: Exam# [id number] Ordering Dr: Crystal Villasenor [employer] [id number] STUDY: ULTRASOUND BREAST - LEFT REASON FOR [...] Signed: Ron Story MD at 12:46 EDT Reading Location ID and State: [facility] / [place] , Service support , CC: MAXIM Villasenor; Dr. Adrian Ley MD Grinder: Signed Normal [facility] DIAG MAMM W/CAD, BILATon DIAG MAMM W/CAD, [facility] Imaging Services [address] [place], [place] [address] DIAG MAMM W/CAD, BILAT MR#: [id number] Acct: [id number] Name: GRISELDA CONCEPCION Rep #: [id number] : 1980 F 44 From: Ron gallagher MD PCP: Dr. Adrian Ley MD Status: REG CLI Study: DIAG MAMM W/CAD, BILAT Date of Exam: 07/03/24 Exam# [id number] Ordering Dr: Crystal Villasenor CNM [id number] MAMMOGRAPHY - BILATERAL DIAGNOSTIC REASON FOR EXAM: [...] CC: MAXIM Villasenor; Dr. Adrian Ley MD Grinder: Signed Normal [facility] [employer] Office Visit Reporton 06-14-2024 [employer] Office Visit Report [facility] [place] [address] OFFICE VISIT Date of Service: 06/14/24 MR#: [id number] Acct: [id number] Name: GRISELDA CONCEPCION Rep #: [id number] : 1980 Provider: MAXIM Esposito ams Age/Sex: 44/F Location: [facility] Status: Signed Intake Vital Signs 06/28/23 08:15 06/10/24 12:54 06/14/24 15:53 06/14/24 15:54 Height 5 ft 8 in 5 ft 8 in 5 ft 8 in 5 ft 8 in Weight: 166 lb 8 oz BMI 25.3 BP 124/80 H Intake Visit 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 Normal [facility] Emergency Department Summary on 06-10-2024 Emergency Department Summary [facility] Medical Records Department [address] [place] [address] Emergency Department Summary 06/10/24 MR#: [id number] Acct: [id number] Name: GRISELDA CONCEPCION Rep #: [id number] : 1980 44 From: Nora DOLL PCP: [...] has been taking ibuprofen with minimal relief. [facility] Medical History Hx LEEP (loop electrosurgical excision [...] at home: Yes additional social history: Gloria QUICK ED Constitutional Constitutional ED: Denies chills [...] lumbar pa (more content not included)... Normal [facility] MRI BRAIN W/ + W/O CONTRASTo n [...] Interpreted by: Wes Espitia Preliminary Report By: Wse Espitia Electronically signed By Wes Espitia Dictated Date: 10/27/2023 3:58:32 PM Prelim Date: 10/27/2023 4:02:54 PM Sign Date: 10/27/2023 4:02:54 PM Ordering Provider: AJAY MARCIAL [facility] ([place]) HCG QUAL URon 03-11-2022 HCG ( test) Ql (U) Negative Negative [facility] ANES POSTPROC EVALon 022 ANES POSTPROC EVAL HNO ID: [id number] Author: Lul Mccarthy MD Service: Anesthesiology Author Type: Anesthesiologist Type: Anesthesia Postprocedure Evaluation Filed: 12/30/2021 3:14 PM Note Text: POST ANESTHESIA EVALUATION NOTE : 1980 Procedure Summary Date: 12/30/21 Room / Location: [place] OR / [place] Anesthesia Start: 1410 Anesthesia Stop: 1449 [...] December 30, 2021 TIME: 3:14 PM CSN: [id number] [facility] ANES PRE-OPon 12-30-2021 ANES PRE-OP HNO ID: [id number] Author: Linda Watts MD Service: ? Author Type: Anesthesiologist Type: Anesthesia Preprocedure Evaluation Filed: 12/30/2021 1:38 PM Note Text: ANESTHESIOLOGY DAY OF SURGERY NOTE : 1980 Procedure Information Date/Time: 12/30/21 1430 Procedure: INCISION AND DRAINAGE HEMATOMA SEROMA BREAST (Left ) Location: [place] OR05 / [place] Surgeons: Jacob Weinstein MD Estimated body [...] December 30, 2021 TIME: 1:38 PM CSN: [id number] [facility] BRIEF OP NOTon 12-30-2021 BRIEF OP NOT HNO ID: [id number] Author: Jacob Weinstein MD Service: General Surgery Author Type: Physician Type: Brief Op Note Filed: 12/30/2021 2:42 PM Note Text: BRIEF OPERATIVE NOTATION FOR SURGICAL PROCEDURE. Griselda Concepcion 1980 [id number] female LOG ID: [id number] Surgery/Procedure Date: 12/30/2021 Incision/Procedure Start Time: 2:28 PM Incision Close/Procedure End Time: 2:35 PM Surgeon(s)/Procedurali st(s) and Beauty Therapist(s): Surgeon(s) and Role: * Jacob Weinstein MD - Primary Nurse Practitioner: Darian Rivera APRN.MECHANICAL DEVELOPMENT ENGINEER REFERRING PHYSICIAN: Outpatient DEPT: JAY PROVIDER: Tristan POS: [id number] ANESTHESIA: General ASA CLASS: 3 - Severe [...] note dictated in the dictation system. 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 04/2012, 2015 ? left foot surgery - TONSILLECTOMY PRIMARY/SECONDARY [...] FAMILY HISTORY (more content not included)... Normal [facility] OPERATIVE NOon 12-30-2021 OPERATIVE NO HNO ID: [id number] Author: Jacob Weinstein MD Service: General Surgery Author Type: Physician Type: Operative Report Filed: 12/31/2021 8:20 AM Note Text: [facility] - Operative Report GRISELDA CONCEPCION : 1980 AGE: 41. SEX: F PATIENT TYPE: A HOSP [facility] [place]: [facility] LOCATION: [facility] ATTENDING PHYSICIAN: Jacob Weinstein M.D. CSN NUMBER: [id number] DATE OF SURGERY/PROCEDURE: 12/30/2021 INCISION/PROCEDURE START TIME: Start time was 2:28 p.m. INCISION CLOSE/PROCEDURE END TIME: End time is 2:35 p.m. PREOPERATIVE DIAGNOSIS: Left breast abscess. POSTOPERATIVE DIAGNOSIS: Drainage of left breast abscess. SURGEON: Jacob Weinstein M.D. EXTRUSION UTILITY WORKER: Darian Rivera CNP. SURGERY/PROCEDURE: Incision and drainage of left breast abscess. ANESTHESIA: Monitored Anesthesia Care LOG ID NUMBER: [id number]. ASA: 3. INTRAVENOUS FLUIDS: 400 mL. ESTIMATED [...] care of the patient. Jacob Weinstein M.D. [id number] /[id number] Normal [facility] THYROID/PARATHYROIDon [facility] MRI BRAIN W/WO CONTRASTon MRI BRAIN W/WO CONTRAST Performed at [facility] APPROVED BY: Jayesh Maguire MD EXAM TITLE: [...] the lateral ventricles. No significant change. Normal [facility] Bacteria identified Anaer cx Nom (Unsp spec) Anaerobic Culture Prevotella disiens [facility] Work Phone: Anaerobic Culture Clostridium group [facility] Work Phone: Gram stain for investigation of transfusion reaction Microscopic observation Gram stain Nom (Unsp spec) [facility] Work Phone: Vital Signs Date Time Vital Sign Value Performing Clinician Faci lity 04-18-2025 17:51-0400 Body height 175.3 cm Edgard Gómez APRN.MECHANICAL DEVELOPMENT ENGINEER Work Phone: [facility] 04-18-2025 17:51-0400 Body mass index (BMI) [Ratio] 22.27 kg/m2 Edgard Gómez APRN.MECHANICAL DEVELOPMENT ENGINEER Work Phone: [facility] 04-18-2025 17:51-0400 Body weight 68.4 kg Edgard Gómez APRN.MECHANICAL DEVELOPMENT ENGINEER Work Phone: [facility] 04-18-2025 17:51-0400 Diastolic blood pressure 70 mm[Hg] Edgard Gómez APRN.MECHANICAL DEVELOPMENT ENGINEER Work Phone: [facility] 04-18-2025 17:51-0400 Heart rate 98 /min Edgard Gómez APRN.MECHANICAL DEVELOPMENT ENGINEER Work Phone: [facility] 04-18-2025 17:51-0400 Respiratory rate 16 /min Edgard Gómez APRN.MECHANICAL DEVELOPMENT ENGINEER Work Phone: [facility] 04-18-2025 17:51-0400 SaO2% (BldA) [Mass fraction] 96 % Edgard Gómez APRN.MECHANICAL DEVELOPMENT ENGINEER Work Phone: 0(583)000-464409 [place] [address] 04-18-2025 17:51-0400 Systolic blood pressure 108 mm[Hg] Edgard Gómez APRN.MECHANICAL DEVELOPMENT ENGINEER Work Phone: 0(783)471-093109 [place] [address] 04-14-2025 13:06-0400 Body temperature 97.6 [degF] Dr. Adrian Ley MD Work Phone: 4(595)297-306453 [place] [address] 04-14-2025 13:06-0400 Diastolic blood pressure 82 mm[Hg] Dr. Adrian Ley MD Work Phone: 5(725)209-593253 [place] [address] 04-14-2025 13:06-0400 Heart rate 78 /min Dr. Adrian Ley MD Work Phone: 0(832)030-844953 [place] [address] 04-14-2025 13:06-0400 Respiratory rate 16 /min Dr. Adrian Ley MD Work Phone: 8(713)171-595153 [place] [address] 04-14-2025 13:06-0400 SaO2% (BldA) [Mass fraction] 99 % Dr. Adrian Ley MD Work Phone: 6(417)847-868753 [place] [address] 04-14-2025 13:06-0400 Systolic blood pressure 124 mm[Hg] Dr. Adrian Ley MD Work Phone: 7(973)749-247653 [place] [address] 04-14-2025 12:42-0400 Body height 172.[address] Adrian Ley MD Work Phone: 1(859)827-847153 [place] [address] 04-14-2025 12:42-0400 Body mass index (BMI) [Ratio] 22.8 kg/m2 Dr. Adrian Ley MD Work Phone: 3(111)590-755253 [place] [address] 04-14-2025 12:42-0400 Body weight 68.[address] Adrian Ley MD Work Phone: 8(013)514-741553 [place] [address] 01-14-2025 10:11-0400 Diastolic blood pressure 73 mm[Hg] Betsy Jalloh MD Work Phone: [facility] 01-14-2025 10:11-0400 Heart rate 82 /min Betsy Jalloh MD Work Phone: [facility] 01-14-2025 10:11-0400 Systolic blood pressure 120 mm[Hg] Betsy Jalloh MD Work Phone: [facility] 12-12-2024 08:50-0400 Body height 174 cm Chan Apple MD Work Phone: [facility] 12-12-2024 08:50-0400 Body mass index (BMI) [Ratio] 22.99 kg/m2 Chan Apple MD Work Phone: [facility] 12-12-2024 08:50-0400 Body temperature 97.81 [degF] Chan Apple MD Work Phone: [facility] 12-12-2024 08:50-0400 Body weight 69.6 kg Chan Apple MD Work Phone: [facility] 12-12-2024 08:50-0400 Diastolic blood pressure 78 mm[Hg] Chan Apple MD Work Phone: [facility] 12-12-2024 08:50-0400 Heart rate 78 /min Chan Apple MD Work Phone: [facility] 12-12-2024 08:50-0400 Respiratory rate 16 /min Chan Apple MD Work Phone: [facility] 12-12-2024 08:50-0400 SaO2% (BldA) [Mass fraction] 98 % Chan Apple MD Work Phone: [facility] 12-12-2024 08:50-0400 Systolic blood pressure 132 mm[Hg] Chan Apple MD Work Phone: [facility] 12-11-2024 10:07-0400 Diastolic blood pressure 83 mm[Hg] Betsy Jalloh MD Work Phone: [facility] 12-11-2024 10:07-0400 Heart rate 71 /min Betsy Jalloh MD Work Phone: [facility] 12-11-2024 10:07-0400 Systolic blood pressure 131 mm[Hg] Betsy Jalloh MD Work Phone: [facility] 11-29-2024 11:55-0400 Body height 172.[address] Adrian Ley MD Work Phone: 4(526)642-215587 [place] [address] 11-29-2024 11:55-0400 Body mass index (BMI) [Ratio] 24.2 kg/m2 Dr. Adrian Ley MD Work Phone: 6(167)513-497053 [place] [address] 11-29-2024 11:55-0400 Body temperature 96.3 [degF] Dr. Adrian Ley MD Work Phone: 5(859)840-636353 [place] [address] 11-29-2024 11:55-0400 Body weight 72.[address] Adrian Ley MD Work Phone: 7(835)558-293253 [place] [address] 11-29-2024 11:55-0400 Diastolic blood pressure 72 mm[Hg] Dr. Adrian Ley MD Work Phone: 7(652)994-343187 [place] [address] 11-29-2024 11:55-0400 Heart rate 76 /min Dr. Adrian Ley MD Work Phone: 1(447)473-166087 [place] [address] 11-29-2024 11:55-0400 Respiratory rate 14 /min Dr. Adrian Ley MD Work Phone: 5(784)933-663287 [place] [address] 11-29-2024 11:55-0400 SaO2% (BldA) [Mass fraction] 98 % Dr. Adrian Ley MD Work Phone: 9(777)419-816787 [place] [address] 11-29-2024 11:55-0400 Systolic blood pressure 122 mm[Hg] Dr. Adrian Ley MD Work Phone: 0(565)410-421753 [place] [address] 11-27-2024 13:46-0400 Diastolic blood pressure 68 mm[Hg] Betsy Jalloh MD Work Phone: [facility] 11-27-2024 13:46-0400 Heart rate 63 /min Betsy Jalloh MD Work Phone: [facility] 11-27-2024 13:46-0400 Systolic blood pressure 105 mm[Hg] Betsy Jalloh MD Work Phone: [facility] 11-20-2024 15:12-0400 Body mass index (BMI) [Ratio] 23.01 kg/m2 Edgard Gómez ROPEWALK ROPE MAKER.MECHANICAL DEVELOPMENT ENGINEER Work Phone: [facility] 11-20-2024 15:12-0400 Body weight 70 kg Edgard Gómez ROPEWALK ROPE MAKER.MECHANICAL DEVELOPMENT ENGINEER Work Phone: [facility] 11-20-2024 15:12-0400 Diastolic blood pressure 67 mm[Hg] Edgard Gómez ROPEWALK ROPE MAKER.MECHANICAL DEVELOPMENT ENGINEER Work Phone: [facility] 11-20-2024 15:12-0400 Heart rate 78 /min Edgard Gómez ROPEWALK ROPE MAKER.MECHANICAL DEVELOPMENT ENGINEER Work Phone: [facility] 11-20-2024 15:12-0400 Systolic blood pressure 113 mm[Hg] Edgard Gómez ROPEWALK ROPE MAKER.MECHANICAL DEVELOPMENT ENGINEER Work Phone: [facility] 11-06-2024 14:20-0500 Diastolic blood pressure 57 mm[Hg] Betsy Jalloh MD Work Phone: [facility] 11-06-2024 14:20-0500 Heart rate 66 /min Betsy Jalloh MD Work Phone: [facility] 11-06-2024 14:20-0500 Systolic blood pressure 106 mm[Hg] Betsy Jalloh MD Work Phone: [facility] 09-18-2024 17:23-0500 Body mass index (BMI) [Ratio] 25 kg/m2 Dr. Adrian Ley MD Work Phone: [facility] 09-18-2024 17:23-0500 Body temperature 98.2 [degF] Dr. Adrian Ley MD Work Phone: [facility] 09-18-2024 17:23-0500 Body weight 74.[address] Adrian Ley MD Work Phone: [facility] 09-18-2024 17:23-0500 Diastolic blood pressure 65 mm[Hg] Dr. Adrian Ley MD Work Phone: [facility] 09-18-2024 17:23-0500 Heart rate 85 /min Dr. Adrian Ley MD Work Phone: [facility] 09-18-2024 17:23-0500 Respiratory rate 16 /min Dr. Adrian Ley MD Work Phone: [facility] 09-18-2024 17:23-0500 SaO2% (BldA) [Mass fraction] 99 % Dr. Adrian Ley MD Work Phone: [facility] 09-18-2024 17:23-0500 Systolic blood pressure 115 mm[Hg] Dr. Adrian Ley MD Work Phone: [facility] 05-21-2024 18:22-0400 Body mass index (BMI) [Ratio] 24.76 kg/m2 Summer Roman APRN.MECHANICAL DEVELOPMENT ENGINEER Work Phone: [facility] 05-21-2024 18:22-0400 Body temperature 98.6 [degF] Summer Roman APRN.MECHANICAL DEVELOPMENT ENGINEER Work Phone: [facility] 05-21-2024 18:22-0400 Body weight 75.3 kg Summer Roman APRN.MECHANICAL DEVELOPMENT ENGINEER Work Phone: [facility] 05-21-2024 18:22-0400 Diastolic blood pressure 72 mm[Hg] Summer Roman APRN.MECHANICAL DEVELOPMENT ENGINEER Work Phone: [facility] 05-21-2024 18:22-0400 Heart rate 74 /min Summer Roman APRN.MECHANICAL DEVELOPMENT ENGINEER Work Phone: [facility] 05-21-2024 18:22-0400 Respiratory rate 16 /min Summer Roman ROPEWALK ROPE MAKER.MECHANICAL DEVELOPMENT ENGINEER Work Phone: [facility] 05-21-2024 18:22-0400 SaO2% (BldA) [Mass fraction] 96 % Summer Roman ROPEWALK ROPE MAKER.MECHANICAL DEVELOPMENT ENGINEER Work Phone: [facility] 05-21-2024 18:22-0400 Systolic blood pressure 118 mm[Hg] Summer Roman ROPEWALK ROPE MAKER.MECHANICAL DEVELOPMENT ENGINEER Work Phone: [facility] 02-16-2024 17:50-0400 Body mass index (BMI) [Ratio] 25.32 kg/m2 Darlyn Hodgson ROPEWALK ROPE MAKER.MECHANICAL DEVELOPMENT ENGINEER Work Phone: [facility] 02-16-2024 17:50-0400 Body temperature 97.2 [degF] Darlyn Hodgson ROPEWALK ROPE MAKER.MECHANICAL DEVELOPMENT ENGINEER Work Phone: [facility] 02-16-2024 17:50-0400 Body weight 77 kg Darlyn Hodgson ROPEWALK ROPE MAKER.MECHANICAL DEVELOPMENT ENGINEER Work Phone: [facility] 02-16-2024 17:50-0400 Diastolic blood pressure 74 mm[Hg] Darlyn Hodgson ROPEWALK ROPE MAKER.MECHANICAL DEVELOPMENT ENGINEER Work Phone: [facility] 02-16-2024 17:50-0400 Heart rate 76 /min Darlyn Hodgson ROPEWALK ROPE MAKER.MECHANICAL DEVELOPMENT ENGINEER Work Phone: [facility] 02-16-2024 17:50-0400 Respiratory rate 20 /min Darlyn Hodgson ROPEWALK ROPE MAKER.MECHANICAL DEVELOPMENT ENGINEER Work Phone: [facility] 02-16-2024 17:50-0400 SaO2% (BldA) [Mass fraction] 98 % Darlyn Hodgson ROPEWALK ROPE MAKER.MECHANICAL DEVELOPMENT ENGINEER Work Phone: [facility] 02-16-2024 17:50-0400 Systolic blood pressure 111 mm[Hg] Darlyn Hodgson ROPEWALK ROPE MAKER.MECHANICAL DEVELOPMENT ENGINEER Work Phone: [facility] 06-27-2023 15:39-0400 Body height 172.72 cm [facility] 06-27-2023 15:39-0400 Body mass index (BMI) [Ratio] 26.9 kg/m2 [facility] 06-27-2023 15:39-0400 Body temperature 97.3 [degF] [facility] 06-27-2023 15:39-0400 Body weight 80.33 kg [facility] 06-27-2023 15:39-0400 Diastolic blood pressure 80 mm[Hg] [facility] 06-27-2023 15:39-0400 Heart rate 91 /min [facility] 06-27-2023 15:39-0400 Respiratory rate 16 /min [facility] 06-27-2023 15:39-0400 SaO2% (BldA) [Mass fraction] 98 % [facility] 06-27-2023 15:39-0400 Systolic blood pressure 119 mm[Hg] [facility] 06-12-2023 14:44-0400 Body mass index (BMI) [Ratio] 27.1 kg/m2 [facility] 06-12-2023 14:44-0400 Body temperature 97.3 [degF] [facility] 06-12-2023 14:44-0400 Body weight 82.1 kg [facility] 06-12-2023 14:44-0400 Diastolic blood pressure 72 mm[Hg] [facility] 06-12-2023 14:44-0400 Heart rate 112 /min [facility] 06-12-2023 14:44-0400 Respiratory rate 18 /min [facility] 06-12-2023 14:44-0400 SaO2% (BldA) [Mass fraction] 95 % [facility] 06-12-2023 14:44-0400 Systolic blood pressure 121 mm[Hg] [facility] 05-24-2023 09:42-0400 Body height 174.4 cm Demetrice Doyle APRN.CNP Work Phone: [facility] 05-24-2023 09:42-0400 Body weight 84.01 kg Demetrice Doyle APRN.CNP Work Phone: [facility] 05-24-2023 09:42-0400 Diastolic blood pressure 68 mm[Hg] Demetrice Podlogar ROPEWALK ROPE MAKER.MECHANICAL DEVELOPMENT ENGINEER Work Phone: [facility] 05-24-2023 09:42-0400 Heart rate 86 /min Demetrice Podlogar ROPEWALK ROPE MAKER.MECHANICAL DEVELOPMENT ENGINEER Work Phone: [facility] 05-24-2023 09:42-0400 Respiratory rate 18 /min Demetrice Podlogar ROPEWALK ROPE MAKER.MECHANICAL DEVELOPMENT ENGINEER Work Phone: [facility] 05-24-2023 09:42-0400 SaO2% (BldA) [Mass fraction] 92 % Demetrice Podlogar ROPEWALK ROPE MAKER.MECHANICAL DEVELOPMENT ENGINEER Work Phone: [facility] 05-24-2023 09:42-0400 Systolic blood pressure 112 mm[Hg] Demetrice Podlogar ROPEWALK ROPE MAKER.MECHANICAL DEVELOPMENT ENGINEER Work Phone: [facility] 07-22-2022 08:49-0500 Body height 173.[address] Adrian Ley Work Phone: [facility] Work Phone: 07-22-2022 08:49-0500 Body mass index (BMI) [Ratio] 30.3 kg/m2 Dr. Adrian Ley Work Phone: [facility] Work Phone: 07-22-2022 08:49-0500 Body weight 91.[address] Adrian Ley Work Phone: [facility] Work Phone: 07-22-2022 08:49-0500 Diastolic blood pressure 73 mm[Hg] Dr. Adrian Ley Work Phone: [facility] Work Phone: 07-22-2022 08:49-0500 Systolic blood pressure 104 mm[Hg] Dr. Adrian Ley Work Phone: [facility] Work Phone: 07-06-2022 14:50-0400 Body temperature 96 [degF] Dr. Adrian Ley Work Phone: [facility] Work Phone: 05-21-2022 10:10-0400 Body height 173.[address] Adrian Ley Work Phone: [facility] Work Phone: 05-21-2022 10:10-0400 Body mass index (BMI) [Ratio] 30.4 kg/m2 Dr. Adrian Ley Work Phone: [facility] Work Phone: 05-21-2022 10:10-0400 Body temperature 97.3 [degF] Dr. Adrian Ley Work Phone: [facility] Work Phone: 05-21-2022 10:10-0400 Body weight 92.[address] Adrian Ley Work Phone: [facility] Work Phone: 05-21-2022 10:10-0400 Diastolic blood pressure 75 mm[Hg] Dr. Adrian Ley Work Phone: [facility] Work Phone: 05-21-2022 10:10-0400 Heart rate 87 /min Dr. Adrian Ley Work Phone: [facility] Work Phone: 05-21-2022 10:10-0400 Respiratory rate 20 /min Dr. Adrian Ley Work Phone: [facility] Work Phone: 05-21-2022 10:10-0400 SaO2% (BldA) [Mass fraction] 94 % Dr. Adrian Ley Work Phone: [facility] Work Phone: 05-21-2022 10:10-0400 Systolic blood pressure 110 mm[Hg] Dr. Adrian Ley Work Phone: [facility] Work Phone: 03-31-2022 15:11-0400 Body temperature 97 [degF] Betsy Agueda PA-C Work Phone: [facility] 03-31-2022 15:11-0400 Body weight 89.54 kg Betsy [place] PA-C Work Phone: [facility] 03-31-2022 15:11-0400 Heart rate 103 /min Betsy Agueda PA-C Work Phone: [facility] 03-31-2022 15:11-0400 SaO2% (BldA) [Mass fraction] 96 % Betsy Agueda PA-C Work Phone: [facility] 03-24-2022 08:46-0400 Body height 172.7 cm Betsy Agueda PA-C Work Phone: [facility] 03-24-2022 08:46-0400 Body temperature 97 [degF] Betsy Agueda PA-C Work Phone: [facility] 03-24-2022 08:46-0400 Body weight 88.91 kg Betsy [place] PA-C Work Phone: [facility] 03-24-2022 08:46-0400 Diastolic blood pressure 62 mm[Hg] Betsy [place] PA-C Work Phone: [facility] 03-24-2022 08:46-0400 Heart rate 97 /min Betsy [place] PA-C Work Phone: [facility] 03-24-2022 08:46-0400 SaO2% (BldA) [Mass fraction] 91 % Betsy [place] PA-C Work Phone: [facility] 03-24-2022 08:46-0400 Systolic blood pressure 108 mm[Hg] Betsy Agueda PA-C Work Phone: [facility] 03-16-2022 08:44-0400 Body height 172.7 cm Kalpana Ivy MD Work Phone: [facility] 03-16-2022 08:44-0400 Body temperature 96.6 [degF] Kalpana Ivy MD Work Phone: [facility] 03-16-2022 08:44-0400 Body weight 89.36 kg Kalpana Ivy MD Work Phone: [facility] 03-16-2022 08:44-0400 Diastolic blood pressure 62 mm[Hg] Kalpana Ivy MD Work Phone: [facility] 03-16-2022 08:44-0400 Heart rate 128 /min Kalpana Ivy MD Work Phone: [facility] 03-16-2022 08:44-0400 SaO2% (BldA) [Mass fraction] 93 % Kalpana Ivy MD Work Phone: [facility] 03-16-2022 08:44-0400 Systolic blood pressure 118 mm[Hg] Kalpana Ivy MD Work Phone: [facility] 03-11-2022 16:25-0400 Heart rate 97 /min Kalpana Ivy MD Work Phone: [facility] 03-11-2022 16:25-0400 Respiratory rate 16 /min Kalpana Ivy MD Work Phone: [facility] 03-11-2022 16:25-0400 SaO2% (BldA) [Mass fraction] 91 % Kalpana Ivy MD Work Phone: [facility] 03-11-2022 16:00-0400 Diastolic blood pressure 64 mm[Hg] Kalpana Ivy MD Work Phone: [facility] 03-11-2022 16:00-0400 Systolic blood pressure 108 mm[Hg] Kalpana Ivy MD Work Phone: [facility] 03-11-2022 14:57-0400 Body temperature 97.3 [degF] Kalpana Ivy MD Work Phone: [facility] 03-09-2022 15:27-0400 Body height 172.7 cm Kalpana Ivy MD Work Phone: [facility] 03-09-2022 15:27-0400 Body temperature 97.81 [degF] Kalpana Ivy MD Work Phone: [facility] 03-09-2022 15:27-0400 Body weight 91.63 kg Kalpana Ivy MD Work Phone: [facility] 03-09-2022 15:27-0400 Diastolic blood pressure 64 mm[Hg] Kalpana Ivy MD Work Phone: [facility] 03-09-2022 15:27-0400 Heart rate 109 /min Kalpana Ivy MD Work Phone: [facility] 03-09-2022 15:27-0400 SaO2% (BldA) [Mass fraction] 97 % Kalpana Ivy MD Work Phone: [facility] 03-09-2022 15:27-0400 Systolic blood pressure 102 mm[Hg] Kalpana Ivy MD Work Phone: [facility] 03-07-2022 15:34-0400 Body height 172.72 cm [facility] Work Phone: 03-07-2022 15:34-0400 Body mass index (BMI) [Ratio] 30.6 kg/m2 [facility] Work Phone: 03-07-2022 15:34-0400 Body temperature 97.1 [degF] [facility] Work Phone: 03-07-2022 15:34-0400 Body weight 91.4 kg [facility] Work Phone: 03-07-2022 15:34-0400 Diastolic blood pressure 85 mm[Hg] [facility] Work Phone: 03-07-2022 15:34-0400 Heart rate 84 /min [facility] Work Phone: 03-07-2022 15:34-0400 Respiratory rate 17 /min [facility] Work Phone: 03-07-2022 15:34-0400 SaO2% (BldA) [Mass fraction] 95 % [facility] Work Phone: 03-07-2022 15:34-0400 Systolic blood pressure 138 mm[Hg] [facility] Work Phone: 02-11-2022 13:42-0400 Body height 172.7 cm Jacob Weinstein MD Work Phone: [facility] 02-11-2022 13:42-0400 Body temperature 97.5 [degF] Jacob Weinstein MD Work Phone: [facility] 02-11-2022 13:42-0400 Body weight 91.63 kg Jacob Weinstein MD Work Phone: [facility] 02-11-2022 13:42-0400 Diastolic blood pressure 58 mm[Hg] Jacob Weinstein MD Work Phone: [facility] 02-11-2022 13:42-0400 Heart rate 110 /min Jacob Weinstein MD Work Phone: [facility] 02-11-2022 13:42-0400 SaO2% (BldA) [Mass fraction] 91 % Jacob Weinstein MD Work Phone: [facility] 02-11-2022 13:42-0400 Systolic blood pressure 98 mm[Hg] Jacob Weinstein MD Work Phone: [facility] 01-14-2022 13:55-0400 Body temperature 97.81 [degF] Jacob Weinstein MD Work Phone: [facility] 01-14-2022 13:55-0400 Body weight 92.53 kg Jacob Weinstein MD Work Phone: [facility] 01-14-2022 13:55-0400 Heart rate 126 /min Jacob Weinstein MD Work Phone: [facility] 01-14-2022 13:55-0400 SaO2% (BldA) [Mass fraction] 96 % Jacob Weinstein MD Work Phone: [facility] 01-05-2022 14:36-0400 Body height 172.7 cm Jacob Weinstein MD Work Phone: [facility] 01-05-2022 14:36-0400 Body temperature 97.59 [degF] Jacob Weinstein MD Work Phone: [facility] 01-05-2022 14:36-0400 Body weight 93.89 kg Jacob Weinstein MD Work Phone: [facility] 01-05-2022 14:36-0400 Diastolic blood pressure 64 mm[Hg] Jacob Weinstein MD Work Phone: [facility] 01-05-2022 14:36-0400 Heart rate 112 /min Jacob Weinstein MD Work Phone: [facility] 01-05-2022 14:36-0400 SaO2% (BldA) [Mass fraction] 95 % Jacob Weinstein MD Work Phone: [facility] 01-05-2022 14:36-0400 Systolic blood pressure 96 mm[Hg] Jacob Weinstein MD Work Phone: [facility] 01-04-2022 15:57-0400 Body weight 93.71 kg Ekta Ley MD Work Phone: [facility] 01-04-2022 15:57-0400 Diastolic blood pressure 78 mm[Hg] Ekta Ley MD Work Phone: [facility] 01-04-2022 15:57-0400 Heart rate 95 /min Ekta Ley MD Work Phone: [facility] 01-04-2022 15:57-0400 Respiratory rate 16 /min Ekta Ley MD Work Phone: [facility] 01-04-2022 15:57-0400 SaO2% (BldA) [Mass fraction] 96 % Ekta Ley MD Work Phone: [facility] 01-04-2022 15:57-0400 Systolic blood pressure 110 mm[Hg] Ekta Ley MD Work Phone: [facility] 12-29-2021 16:06-0400 Body height 174 cm Jacob Weinstein MD Work Phone: [facility] 12-29-2021 16:06-0400 Body temperature 98.01 [degF] Jacob Weinstein MD Work Phone: [facility] 12-29-2021 16:06-0400 Body weight 92.99 kg Jacob Weinstein MD Work Phone: [facility] 12-29-2021 16:06-0400 Diastolic blood pressure 69 mm[Hg] Jacob Weinstein MD Work Phone: [facility] 12-29-2021 16:06-0400 Heart rate 110 /min Jacob Weinstein MD Work Phone: [facility] 12-29-2021 16:06-0400 SaO2% (BldA) [Mass fraction] 96 % Jacob Weinstein MD Work Phone: [facility] 12-29-2021 16:06-0400 Systolic blood pressure 106 mm[Hg] Jacob Weinstein MD Work Phone: [facility] 12-22-2021 15:01-0400 Body height 174 cm Jacob Weinstein MD Work Phone: [facility] 12-22-2021 15:01-0400 Body temperature 97.59 [degF] Jacob Weinstein MD Work Phone: [facility] 12-22-2021 15:01-0400 Body weight 93.44 kg Jacob Weinstein MD Work Phone: [facility] 12-22-2021 15:01-0400 Diastolic blood pressure 70 mm[Hg] Jacob Weinstein MD Work Phone: [facility] 12-22-2021 15:01-0400 Heart rate 107 /min Jacob Weinstein MD Work Phone: [facility] 12-22-2021 15:01-0400 SaO2% (BldA) [Mass fraction] 96 % Jacob Weinstein MD Work Phone: [facility] 12-22-2021 15:01-0400 Systolic blood pressure 120 mm[Hg] Jacob Weinstein MD Work Phone: [facility] 12-18-2021 18:02-0400 Body height 172.72 cm [facility] Work Phone: 12-18-2021 18:02-0400 Body mass index (BMI) [Ratio] 30.9 kg/m2 [facility] [facility] Work Phone: 12-18-2021 18:02-0400 Body temperature 97.4 [degF] [facility] Work Phone: 12-18-2021 18:02-0400 Body weight 92.44 kg [facility] Work Phone: 12-18-2021 18:02-0400 Diastolic blood pressure 82 mm[Hg] [facility] Work Phone: 12-18-2021 18:02-0400 Heart rate 98 /min [facility] Work Phone: 12-18-2021 18:02-0400 Respiratory rate 16 /min [facility] Work Phone: 12-18-2021 18:02-0400 SaO2% (BldA) [Mass fraction] 97 % [facility] Work Phone: 12-18-2021 18:02-0400 Systolic blood pressure 121 mm[Hg] [facility] Work Phone: 12-18-2021 08:43-0400 Body height 174 cm Jacob Weinstein MD Work Phone: [facility] 12-18-2021 08:43-0400 Body temperature 97.3 [degF] Jacob Weinstein MD Work Phone: [facility] 12-18-2021 08:43-0400 Body weight 92.99 kg Jacbo Weinstein MD Work Phone: [facility] 12-18-2021 08:43-0400 Diastolic blood pressure 60 mm[Hg] Jacob Weinstein MD Work Phone: [facility] 12-18-2021 08:43-0400 Heart rate 110 /min Jacob Weinstein MD Work Phone: [facility] 12-18-2021 08:43-0400 Respiratory rate 14 /min Jacob Weinstein MD Work Phone: [facility] 12-18-2021 08:43-0400 SaO2% (BldA) [Mass fraction] 99 % Jacob Weinstein MD Work Phone: [facility] 12-18-2021 08:43-0400 Systolic blood pressure 110 mm[Hg] Jacob Weinstein MD Work Phone: [facility] 12-17-2021 13:26-0400 Body weight 92.72 kg Yani Puente APRN.MECHANICAL DEVELOPMENT ENGINEER Work Phone: [facility] 12-17-2021 13:26-0400 Diastolic blood pressure 60 mm[Hg] Yani Puente APRN.MECHANICAL DEVELOPMENT ENGINEER Work Phone: [facility] 12-17-2021 13:26-0400 Systolic blood pressure 102 mm[Hg] Yani Puente APRN.MECHANICAL DEVELOPMENT ENGINEER Work Phone: [facility] 12-16-2021 08:45-0400 Body weight 92.53 kg Lina Kenny ROPEWALK ROPE MAKER.CNM Work Phone: [facility] 12-16-2021 08:45-0400 Diastolic blood pressure 62 mm[Hg] Lina Kenny ROPEWALK ROPE MAKER.CNM Work Phone: [facility] 12-16-2021 08:45-0400 Systolic blood pressure 100 mm[Hg] Lina Kenny ROPEWALK ROPE MAKER.CNM Work Phone: [facility] 11-27-2021 10:08-0400 Body height 176.5 cm Ekta Ley MD Work Phone: [facility] 11-27-2021 10:08-0400 Body weight 94.35 kg Ekta Ley MD Work Phone: [facility] 11-27-2021 10:08-0400 Diastolic blood pressure 58 mm[Hg] Ekta Ley MD Work Phone: [facility] 11-27-2021 10:08-0400 Heart rate 85 /min Ekta Ley MD Work Phone: [facility] 11-27-2021 10:08-0400 Respiratory rate 18 /min Ekta Ley MD Work Phone: [facility] 11-27-2021 10:08-0400 SaO2% (BldA) [Mass fraction] 93 % Ekta Ley MD Work Phone: [facility] 11-27-2021 10:08-0400 Systolic blood pressure 104 mm[Hg] Ekta Ley MD Work Phone: [facility] 11-02-2021 14:38-0500 Body mass index (BMI) [Ratio] 16 kg/m2 [facility] Work Phone: 11-02-2021 14:38-0500 Body temperature 97.4 [degF] [facility] Work Phone: 11-02-2021 14:38-0500 Body weight 47.99 kg [facility] Work Phone: 11-02-2021 14:38-0500 Diastolic blood pressure 88 mm[Hg] [facility] Work Phone: 11-02-2021 14:38-0500 Heart rate 104 /min [facility] Work Phone: 11-02-2021 14:38-0500 Respiratory rate 16 /min [facility] Work Phone: 11-02-2021 14:38-0500 SaO2% (BldA) [Mass fraction] 95 % [facility] Work Phone: 11-02-2021 14:38-0500 Systolic blood pressure 137 mm[Hg] [facility] Work Phone: Encounters Encounter Date Encounter Type Care Provider Facility Start: 05-29-2025 End: 05-29-2025 ambulatory EKTA LEY Facility:[facility] Start: 05-21-2025 End: 05-21-2025 ambulatory MITZI ACEVEDO Facility:[facility] Start: 04-18-2025 End: 04-18-2025 ambulatory EKTA LEY Facility:[facility] Start: 04-18-2025 End: 04-18-2025 Patient encounter procedure Edgard Gómez APRN.CNP Work Phone: [facility] Comment on above: Annual physical exam (Primary Dx); Mixed hyperlipidemia; Gastroesophageal reflux disease with esophagitis without hemorrhage; Medication management; Screening for diabetes mellitus; Encounter for screening examination for other mental health and behavioral disorders; Recurrent major depressive disorder, remission status unspecified; Mild intermittent asthma without complication (HCC) Start: 04-14-2025 End: 04-14-2025 Emergency department patient visit Dr. Adrian Ley MD Work Phone: -Emergency Department Work Phone: Start: 01-14-2025 End: 01-14-2025 Patient encounter procedure Betsy Jalloh MD Work Phone: [facility] Comment on above: Breast abscess (Prim emerita Dx); Mass of upper inner quadrant of left breast Start: 01-14-2025 End: 01-14-2025 ambulatory BETSY JALLOH Facility:[facility] Start: 12-20-2024 End: 12-20-2024 Telephone encounter Betsy Jalloh MD Work Phone: [facility] Comment on above: Patient Question Start: 12-12-2024 End: 12-12-2024 ambulatory CHAN APPLE Facility:[facility] Start: 12-12-2024 End: 12-12-2024 Patient encounter procedure Chan Apple MD Work Phone: [facility] Comment on above: Left breast abscess (Primary Dx); Actinomyces infection Start: 12-11-2024 End: 12-11-2024 Patient encounter procedure Betsy Jalloh MD Work Phone: [facility] Comment on above: Breast abscess (Prim emerita Dx); Post-operative pain Start: 12-11-2024 End: 12-11-2024 ambulatory BETSY JALLOH Facility:[facility] Start: 12-07-2024 End: 12-07-2024 Telephone encounter Betsy Jalloh MD Work Phone: [facility] Comment on above: Patient Question Post-operative pain (Primary Dx) Start: 12-03-2024 Preprocedural examin ation done Betsy Jalloh MD Work Phone: [facility] Work Phone: Start: 12-03-2024 End: 12-03-2024 ambulatory BETSY JALLOH Facility:[facility] Start: 11-29-2024 End: 11-29-2024 Emergency department patient visit Dr. Adrian Ley MD Work Phone: -Emergency Department Work Phone: Start: 11-28-2024 End: 11-28-2024 Telephone encounter Betsy Jalloh MD Work Phone: [facility] Comment on above: Preparations For Shyann anatoly Start: 11-27-2024 End: 11-27-2024 Orders Only Jordyn Linn MA [facility] Comment on above: Breast abscess (Prim emeirta Dx) Mass of upper inner quadrant of left breast [N63.22] Mass of upper inner quadrant of left breast (Primary Dx); Breast abscess; At high risk for breast cancer Start: 11-21-2024 End: 11-21-2024 Follow-up encounter Ashley Rahman PA-C Work Phone: [facility] [place] Start: 11-20-2024 End: 11-20-2024 Patient encounter procedure Edgard Gómez APRN.CNP Work Phone: [facility] [place] Comment on above: Acute cough (Primary Dx); Head congestion Start: 11-20-2024 End: 11-20-2024 ambulatory EKTA LEY Facility:[facility] Start: 11-06-2024 End: 11-06-2024 Patient encounter procedure Betsy Jalloh MD Work Phone: [facility] Comment on above: Mass of upper inner quadrant of left breast (Primary Dx); At high risk for breast cancer Start: 11-06-2024 End: 11-06-2024 ambulatory BETSY JALLOH Facility:[facility] Start: 11-04-2024 End: 11-04-2024 Nurse Triage Lizabeth Almazan RN NURSE CUSTOMER SUPPORT COORDINATOR Comment on above: Refill Request Start: 10-16-2024 ambulatory Adrian Jil Faci lity:[facility] Start: 09-18-2024 End: 09-18-2024 Emergency department patient visit ED PHYSICIAN PROVIDER -Emergency Department Work Phone: Start: 09-11-2024 End: 09-11-[address] Darian Goyal MD [facility] Work Phone: Start: 09-11-2024 End: 09-11-2024 ambulatory Adrian Ley Facility:[facility] Start: 08-14-2024 End: 08-14-[address] Darian Goyal MD [facility] Work Phone: Start: 08-14-2024 End: 08-14-2024 [facility] Start: 08-06-2024 End: 08-06-2024 Patient encounter procedure Betsy Min PA-C -[facility] Work Phone: Start: 08-06-2024 End: 08-06-2024 [facility] Start: 08-06-2024 End: 08-06-2024 [facility] Start: 07-10-2024 End: 07-10-2024 ambulatory [facility] Facility[facility] Start: 07-10-2024 End: 07-10-2024 ambulatory [facility] Facility:[facility] Start: 07-03-2024 End: 07-03-2024 Refill Ekta Ley MD Work Phone: [facility] Comment on above: Refill Request Start: 07-03-2024 End: 07-03-2024 ambulatory Crystal Villasenor Facility:[facility] Start: 06-14-2024 Encounter for gynecological examination (general) (routine) without abnormal findings Crystal Villasenor [facility] Start: 06-14-2024 End: 06-14-2024 ambulatory Adrian Ley Facility:[facility] Start: 06-10-2024 End: 06-10-2024 Emergency department patient visit [facility] Facility:[facility] Start: 05-21-2024 End: 05-21-2024 Patient encounter procedure Summer Roman APRN.MECHANICAL DEVELOPMENT ENGINEER Work Phone: [facility] Comment on above: Rhinosinusitis (Prim emerita Dx) Start: 04-05-2024 End: 04-05-2024 Patient encounter procedure Lencho Nory Work Phone: Podiatry Comment on above: Onychomadesis of toe nail (Primary Dx) Start: 03-28-2024 Refill Ekta Ley MD Work Phone: [facility] Comment on above: Refill Request Start: 02-22-2024 ambulatory Ekta Ley MD Work Phone: Internal [facility] [place] [id number] Start: 02-16-2024 End: 02-16-2024 Patient encounter procedure Darlyndulce Hodgson APRN.MECHANICAL DEVELOPMENT ENGINEER Work Phone: [facility] Comment on above: Sinusitis, unspecifi ed chronicity, unspecified location (Primary Dx) Start: 12-19-2023 Telephone encounter Adrian Ley MD Work Phone: [facility] Comment on above: medication request Start: 12-14-2023 Refill Ekta Ley MD Work Phone: [facility] Comment on above: Refill Request Start: 10-27-2023 End: 10-28-2023 ambulatory AJAY MARCIAL PA-C Facility:[facility] Start: 06-27-2023 End: 06-27-2023 Emergency department patient visit [facility]-Emergency Department Work Phone: Start: 06-27-2023 ambulatory Ekta Ley MD Work Phone: [facility] Comment on above: Headache Start: 06-12-2023 End: 06-12-2023 Emergency department patient visit [facility]-Emergency Department Work Phone: Start: 05-24-2023 End: 05-24-2023 Patient encounter procedure Demetrice Doyle APRN.MECHANICAL DEVELOPMENT ENGINEER Work Phone: [facility] Comment on above: Annual physical exam (Primary Dx); Mild intermittent asthma without complication; Gastroesophageal reflux disease with esophagitis without hemorrhage; Mixed hyperlipidemia; Encounter for immunization; Tobacco use disorder; Generalized convulsive epilepsy (HCC); Migraine without aura and without status migrainosus, not intractable; Major depressive disorder, remission status unspecified, unspecified whether recurrent Start: 05-20-2023 Refill Ekta Ley MD Work Phone: [facility] Comment on above: Refill Request Start: 05-10-2023 Refill Edgard reyes APRN.MECHANICAL DEVELOPMENT ENGINEER Work Phone: [facility] Comment on above: Refill Request; Refi ll Request Start: 03-16-2023 ambulatory Ekta Ley MD Work Phone: [facility] [place] Start: 01-28-2023 Refill Ekta Ley MD Work Phone: [facility] Comment on above: Refill Request Start: 11-05-2022 Refill Ekta Ley MD Work Phone: [facility] Comment on above: Refill Request; Refi ll Request Start: 07-22-2022 End: 07-22-[address] Adrian Ley Work Phone: [facility] Work Phone: Start: 07-22-2022 End: 07-22-[address] Adrian Ley Work Phone: [facility]-Laboratory, Specimen Start: 07-22-2022 End: 07-22-[address] Adrian Ley Work Phone: [facility] Start: 07-06-2022 End: 07-06-[address] Adrian Ley Work Phone: [facility] Work Phone: Start: 07-06-2022 End: 07-06-[address] Adrian Ley Work Phone: [facility]-Laboratory, Specimen Start: 07-06-2022 End: 07-06-[address] Adrian Ley Work Phone: [facility] Start: 06-23-2022 End: 06-23-[address] Adrian Ley Work Phone: [facility] Start: 06-15-2022 End: 06-15-[address] Adrian Ley Work Phone: [facility] Start: 06-07-2022 Refill Ekta Ley MD Work Phone: [facility] Comment on above: Refill Request Start: 06-01-2022 End: 06-01-[address] Adrian Ley Work Phone: [facility] Start: 05-21-2022 End: 05-21-[address] Adrian Ley Work Phone: [facility] Start: 05-13-2022 Refill Ekta Ley MD Work Phone: [facility] Comment on above: Refill Request Start: 04-07-2022 ambulatory Ekta Ley MD Work Phone: [facility] [place] Start: 03-31-2022 End: 03-31-2022 Patient encounter procedure [...] 03-07-2022 End: 03-07-2022 Emergency department patient visit [facility]-Emergency Department Start: 02-11-2022 End: 02-11-2022 Patient encounter [...] for medical records to be faxed to [facility]) Start: 01-05-2022 End: 01-05-2022 Patient encounter procedure Jacob Weinstein MD Work Phone: General Surgery Comment on above: Breast abscess (Prim emerita Dx) Start: 01-04-2022 End: 01-04-2022 Patient encounter procedure Ekta Ley MD Work Phone: [facility] [place] Comment on above: Breast pain, left (P [...] encounter Adrian Ley MD Work Phone: [facility] Comment on above: ER F/U (unable to le ave message mailbox full) Start: 12-18-2021 End: 12-18-2021 Emergency department patient visit [facility]Emergency Department Start: 12-18-2021 Telephone encounter Jacob Weinstein MD Work Phone: General Surgery Comment on above: Patient Question Start: 12-18-2021 End: 12-18-2021 Patient encounter procedure Jacob Weinstein MD Work Phone: General Surgery Comment on above: Cellulitis of left b reast (Primary Dx) Start: 12-17-2021 Telephone encounter Jolene Suny [facility] diana ROPEWALK ROPE MAKER.MECHANICAL DEVELOPMENT ENGINEER Work Phone: OB/Gynecology Comment on above: FYI-No Action Needed Start: 12-17-2021 End: 12-17-2021 Patient encounter procedure Yani Puente ROPEWALK ROPE MAKER.MECHANICAL DEVELOPMENT ENGINEER Work Phone: OB/Gynecology Comment on above: Abscess of breast, l eft (Primary Dx) Start: 12-16-2021 End: 12-16-2021 Patient encounter procedure Lina Gallolane ROPEWALK ROPE MAKER.CNM Work Phone: OB/Gynecology Comment on above: Breast pain, left (P rimary Dx); Subareolar mass of left breast Start: 12-09-2021 Telephone encounter Adrian Ley MD Work Phone: [facility] Comment on above: Results Start: 11-30-2021 End: 11-30-2021 Subsequent hospital visit by physician [facility] Work Phone: Radiology Comment on above: Enlarged thyroid [E0 4.9] Start: 11-27-2021 End: 11-27-2021 Patient encounter procedure Ekta Ley MD Work Phone: [facility] Comment on above: Annual physical exam (Primary Dx); Mild intermittent asthma without complication; Gastroesophageal reflux disease with esophagitis without hemorrhage; Mixed hyperlipidemia; Recurrent major depressive disorder, remission status unspecified (HCC); History of seizures; Tobacco use; Need for COVID-19 vaccine; Enlarged thyroid Start: 11-02-2021 End: 11-02-2021 [facility] Start: 01-11-2019 End: 11-27-2021 Patient requested procedure Darlyn Hodgson ROPEWALK ROPE MAKER.MECHANICAL DEVELOPMENT ENGINEER Work Phone: [facility] Start: 08-09-2017 Ambulatory KASI Diallo:[facility] Start: 06-14-2017 Ambulatory [facility] Procedures Date Procedure Procedure Detail Performing Clinician [...] YR, QUADRIVALENT (AFLURIA, FLULAVAL, FLUZONE) Demetrice Podlogar ROPEWALK ROPE MAKER.MECHANICAL DEVELOPMENT ENGINEER Work Phone: Start: 03-11-2022 End: 03-11-2022 Incision [...] PCV20) PNEUMOCOCCAL (3 - PPSV23 or PCV20) [facility] Start: [address] [facility] Start: 2032 Pneumococcal vaccination Pneumococcal Vaccine (3 of 3 - PCV20 or PCV21) [facility] Start: 06-16-2030 Urine microalbumin profile [facility] Start: 04-18-2026 Annual PCP Team Animal Physiologist salma Disease Visit Annual PCP Team Chronic Disease Visit [facility] Start: 11-20-2025 Annual PCP Team Animal Physiologist salma Disease Visit Annual PCP Team Chronic Disease Visit [facility] Start: 10-15-2025 End: 10-15-2025 Patient encounter procedure 10/15/2025 2:40 PM EST Office Visit [facility] [address] [place], [place] [id number] Ekta Ley MD [address] [place] [address] 6 month follow up [facility] Comment on above: 6 month follow up Start: 09-18-2025 Screening for malign ant neoplasm of cervix Cervical Cancer Screening [facility] Start: 07-18-2025 End: 07-18-2025 Patient encounter procedure [facility] Comment on above: diagnostic bilat sarah mogram with luis alfredo and follow up afterwards. Start: 07-03-2025 Screening for malign ant neoplasm of breast Mammogram Screening [facility] Start: 05-06-2025 Influenza vaccination [facility] Start: 04-23-2025 End: 04-23-2025 Patient encounter procedure 04/23/2025 11:00 AM EDT Office Visit [facility] [address] [place] [id number] Mitzi Acevedo DO [address] [place] [address] Left shoulder that shoots up and down entire left side. [facility] Comment on above: Left shoulder that s hoots up and down entire left side. Start: 04-18-2025 End: 07-18-2025 CBC W Auto Differential panel - Blood COMPLETE BLOOD COUNT AND DIFFERENTIAL Lab Routine Annual physical exam Gastroesophageal reflux disease with esophagitis without hemorrhage Expected: 04/18/2025, Expires: 07/18/2025 [facility] Work Phone: Comment on above: Expected: 04/18/2025 , Expires: 07/18/2025 Start: 04-18-2025 End: 07-18-2025 Comprehensive metabolic 2000 panel - Serum or Plasma COMPREHENSIVE METABOLIC PANEL Lab Routine Annual physical exam Expected: 04/18/2025, Expires: 07/18/[address] [facility] Comment on above: Expected: 04/18/2025 , Expires: 07/18/2025 Start: 04-18-2025 End: 07-18-2025 Hemoglobin A1c in Blood HEMOGLOBIN A1C Lab Routine Screening for diabetes mellitus Expected: 04/18/2025, Expires: 07/18/[address] [facility] Comment on above: Expected: 04/18/2025 , Expires: 07/18/2025 Start: 04-18-2025 End: 07-18-2025 LIPID PANEL, NONFASTING LIPID PANEL, NONFASTING Lab Routine Mixed hyperlipidemia Expected: 04/18/2025, Expires: 07/18/[address] [facility] Comment on above: Expected: 04/18/2025 , Expires: 07/18/2025 Start: 04-18-2025 End: 07-18-2025 Thyrotropin [Units/volume] in Serum or Plasma THYROID STIMULATING HORMONE Lab Routine Medication management Expected: 04/18/2025, Expires: 07/18/[address] [facility] Comment on above: Expected: 04/18/2025 , Expires: 07/18/2025 Start: 01-14-2025 End: 01-14-2025 Patient encounter procedure 01/14/2025 10:30 AM EDT Office Visit [facility] 1 [facility] [address] [place] [address] Betsy Jalloh MD [address] [place] [address] 1 month wound check [facility] Comment on above: 1 month wound check Start: 01-01-2025 End: 01-01-2025 ambulatory 01/01/2025 2:30 PM EDT [facility] [address] [place] [address] Chan Apple MD [address] [place] [address] [facility] Comment on above: 2-3 wk f/u appt Start: 12-11-2024 End: 12-11-2024 Patient encounter procedure 12/11/2024 10:15 AM EDT Office Visit [facility] 1 [facility] [address] [place] [address] Betsy Jalloh MD [address] [place] [address] [facility] Comment on above: post op surgery Start: 12-03-2024 End: 12-03-2024 Admission to same day surgery center 12/03/2024 1:30 PM EDT - 12/03/2024 3:15 PM EDT Surgery [facility] [address] [place] [address] Betsy Jalloh MD [address] [place] [address] OPEN EXCISION OF BREAST LESION UNILATERAL FEMALE [...] above: Breast abscess [N61. 1] Start: 11-29-2024 [facility] Start: 11-27-2024 End: 11-27-2024 Patient encounter procedure 11/27/2024 1:45 PM EDT Office Visit [facility] 1 [facility] [address] [place] [address] Betsy [facility]alloh MD [address] [facility] [address] [place] [address] ultrasound left breast patient to see afterwards [facility] Comment on above: ultrasound left ro[address] st patient to see afterwards Start: 11-27-2024 End: 11-27-2024 Patient encounter procedure 11/27/2024 12:30 PM EDT Appointment [facility] [address] [place] [address] ultrasound left breast patient to see afterwards [facility] Comment on above: ultrasound left ro[address] patient to see afterwards Start: 11-06-2024 End: 11-06-2024 Patient encounter procedure 11/06/2024 2:30 PM EST Office Visit [facility] 1 [facility] Acc [address] [place] [address] Betsy Jalloh MD [address] [place] [address] ABscess breast and nipple left [facility] Comment on above: ABscess breast and n ipple left Start: 10-26-2024 HPV TESTING HPV TESTING [facility] Start: 10-26-2024 PAP TESTING PAP TESTING [facility] Start: 10-26-2024 Screening for malign ant neoplasm of cervix [facility] Start: 05-24-2024 Annual PCP Team Animal Physiologist salma Disease Visit Annual PCP Team Chronic Disease Visit [facility] Start: 05-06-2024 Covid-19 Vaccine ( season) Covid-19 Vaccine ( season) [facility] Start: 05-06-2024 Covid-19 Vaccine ( season) Covid-19 Vaccine ( season) [facility] Start: 05-06-2024 Influenza vaccination Influenza Vacc ine (#1) [facility] Start: 06-12-2023 [facility] Start: 05-24-2023 End: 07-24-2023 CBC W Auto Differential panel - Blood CBC + DIFF Lab Routine Annual physical exam Expected: 05/24/2023, Expires: 07/24/2023 [facility] Work Phone: Comment on above: Expected: 05/24/2023 , Expires: 07/24/2023 Start: 05-24-2023 End: 07-24-2023 Comprehensive metabolic 2000 panel - Serum or Plasma COMP METABOLIC PANEL Lab Routine Annual physical exam Mixed hyperlipidemia Expected: 05/24/2023, Expires: 07/24/2023 [facility] Work Phone: Comment on above: Expected: 05/24/2023 , Expires: 07/24/2023 Start: 05-24-2023 End: 07-24-2023 Lipid 1996 panel - Serum or Plasma LIPID PANEL BASIC Lab Routine Annual physical exam Mixed hyperlipidemia Expected: 05/24/2023, Expires: 07/24/2023 [facility] Work Phone: Comment on above: Expected: 05/24/2023 , Expires: 07/24/2023 Start: 05-06-2023 Covid-19 Vaccine ( season) Covid-19 Vaccine () [facility] Start: 05-06-2023 Influenza vaccination [facility] Start: 01-04-2023 ANNUAL PCP TEAM CAN CONVEYOR FEEDER SALMA DISEASE VISIT ANNUAL PCP TEAM CHRONIC DISEASE VISIT [facility] Start: 11-27-2022 ANNUAL PCP TEAM CAN CONVEYOR FEEDER SALMA DISEASE VISIT ANNUAL PCP TEAM CHRONIC DISEASE VISIT [facility] Start: 11-27-20[address] [facility] Comment on above: Postponed from 03/05 (Declined at this time) Start: 07-22-2022 Liquid based cervica l cytology screening [facility] Work Phone: Start: 05-06-2022 Influenza vaccination [facility] Start: [address] [facility] Start: 2022 Screening for malign ant neoplasm of breast Mammogram Screening [facility] Start: 03-04-2022 Influenza vaccination INFLUENZA (#1) [facility] Comment on above: Postponed from 05/06 (Declined at this time) Start: 01-22-2022 COVID-19 VACCINE (4 - Booster for Pfizer series) COVID-19 VACCINE (4 - Booster for Pfizer series) [facility] Start: 01-22-2022 COVID-19 VACCINE (4 - Pfizer series) COVID-19 VACCINE (4 - Pfizer series) [facility] Start: 12-23-2021 End: 01-15-2023 Us breast uni real time with image limited US BREAST LTD LT Radiology Routine Breast pain, left Expected: 12/23/2021, Expires: 01/15/2023 [facility] Work Phone: Comment on above: Expected: 12/23/2021 , Expires: 01/15/2023 Start: 12-09-2021 End: 02-08-2022 Comprehensive metabolic 2000 panel - Serum or Plasma COMP METABOLIC PANEL Lab Routine Hyperglycemia Expected: 12/09/2021, Expires: 02/08/2022 [facility] Work Phone: Comment on above: Expected: 12/09/2021 , Expires: 02/08/2022 Start: 12-09-2021 End: 02-08-2022 Hemoglobin A1c/Hemoglobin.total in Blood HGB A1C Lab Routine Hyperglycemia Expected: 12/09/2021, Expires: 02/08/2022 [facility] Work Phone: Comment on above: Expected: 12/09/2021 , Expires: 02/08/2022 Start: 11-27-2021 End: 01-27-2022 CBC panel - Blood by Automated count [facility] Work Phone: Comment on above: Expected: 11/27/2021 , Expires: 01/27/2022 Start: 11-27-2021 End: 01-27-2022 Comprehensive metabolic 2000 panel - Serum or Plasma COMP METABOLIC PANEL Lab Routine Annual physical exam Expected: 11/27/2021, Expires: 01/27/2022 [facility] Work Phone: Comment on above: Expected: 11/27/2021 , Expires: 01/27/2022 Start: 11-27-2021 End: 01-27-2022 LIPID PANEL, NONFASTING LIPID PANEL, NONFASTING Lab Routine Mixed hyperlipidemia Expected: 11/27/2021, Expires: 01/27/2022 [facility] Work Phone: Comment on above: Expected: 11/27/2021 , Expires: 01/27/2022 Start: 11-27-2021 End: 01-27-2022 T4 FREE/FREE THYROX T4 FREE/FREE THYROX Lab Routine Enlarged thyroid Expected: 11/27/2021, Expires: 01/27/2022 [facility] Work Phone: Comment on above: Expected: 11/27/2021 , Expires: 01/27/2022 Start: 11-27-2021 End: 01-27-2022 THYROID PEROXIDASE ANTIBODY BLOOD THYROID PEROXIDASE ANTIBODY BLOOD Lab Routine Enlarged thyroid Expected: 11/27/2021, Expires: 01/27/2022 [facility] Work Phone: Comment on above: Expected: 11/27/2021 , Expires: 01/27/2022 Start: 11-27-2021 End: 01-27-2022 Thyrotropin [Units/volume] in Serum or Plasma TSH BLD Lab Routine Enlarged thyroid Expected: 11/27/2021, Expires: 01/27/2022 [facility] Work Phone: Comment on above: Expected: 11/27/2021 , Expires: 01/27/2022 Start: 04-09-2016 PNEUMOCOCCAL (2 - PCV) PNEUMOCOCCAL (2 - PCV) [facility] Start: 2001 Hepatitis B Vaccine (1 of 3 - 19+ 3-dose series) Hepatitis B Vaccine (1 of 3 - 19+ 3-dose series) [facility] Start: 2000 Anxiety Screening Anxiety Screening [facility] Start: 2000 SPIROMET[address] [facility] Start: 1982 HEPATITIS B (1 of 3 - 3-dose series) HEPATITIS B (1 of 3 - 3-dose series) [facility] Start: 1982 Hepatitis B Vaccine (1 of 3 - 3-dose series) Hepatitis B Vaccine (1 of 3 - 3-dose series) [facility] Bacteria identified in Wound by Culture WOUND CULTURE AND GRAM STAIN Microbiology Routine Breast abscess 12/22/2021 3:49 PM EDT [facility] Work Phone: Bacteria identified in Wound by Culture WOUND CULTURE AND GRAM STAIN Microbiology Routine 03/11/2022 3:01 PM EDT [facility] Work Phone: COVID & INFLUENZA A/ B & RSV PCR, ROUTINE COVID & INFLUENZA A/B & RSV PCR, ROUTINE Microbiology Routine Acute cough Head congestion 11/20/2024 3:23 PM EDT [facility] Work Phone: End: 02-13-2026 DBT Breast - bilateral diagnostic for implant SARAH DIAG W LUIS ALFREDO BILATERAL Radiology Routine Mass of upper inner quadrant of left breast 1 Occurrences starting 01/14/2025 until 02/13/2026 [facility] Work Phone: Comment on above: 1 Occurrences starti ng 01/14/2025 until 02/13/2026 End: 03-23-2025 DBT Breast - bilateral screening SARAH SCREENING W LUIS ALFREDO Radiology Routine Encounter for screening mammogram for breast cancer 1 Occurrences starting 02/22/2024 until 03/23/2025 [facility] Work Phone: Comment on above: 1 Occurrences starti ng 02/22/2024 until 03/23/2025 End: 01-15-2023 Diagnostic mammography computer-aided detcj bi SARAH DIAGNOSTIC BILAT Radiology Routine Breast pain, left 1 Occurrences starting 12/16/2021 until 01/15/2023 [facility] Work Phone: Comment on above: 1 Occurrences starti ng 12/16/2021 until 01/15/2023 Exc cyst/aberrant breast tissue open 1/> lesion OPEN EXCISION OF BREAST LESION UNILATERAL FEMALE BREAST Breast abscess AK OR H&P for surgery H&P FOR SURGERY Procedures Routine Breast abscess Ordered: 11/27/2024 [facility] Work Phone: Comment on above: Ordered: 11/27/2024 End: 04-14-2024 SARAH SCREENING [facility] SCREENING Radiology Routine Encounter for screening mammogram for breast cancer 1 Occurrences starting 03/16/2023 until 04/14/2024 [facility] Work Phone: Comment on above: 1 Occurrences starti ng 03/16/2023 until 04/14/2024 Path report.final Dx Spec [facility] Work Phone: Patient Education [facility] Work Phone: Patient referral [facility] Work Phone: End: 05-07-2023 Screening mammography bi 2-view breast inc cad SARAH SCREENING Radiology Routine Encounter for screening mammogram for breast cancer 1 Occurrences starting 04/07/2022 until 05/07/2023 [facility] Work Phone: Comment on above: 1 Occurrences starti ng 04/07/2022 until 05/07/2023 SURGICAL PATHOLOGY [facility] Work Phone: Comment on above: Release Upon Orderin g for 1 Occurrences starting 03/11/2022 End: 12-06-2025 US Breast - left limited US BREAST LTD LEFT Radiology Routine Mass of upper inner quadrant of left breast 1 Occurrences starting 11/06/2024 until 12/06/2025 [facility] Work Phone: Comment on above: 1 Occurrences starti ng 11/06/2024 until 12/06/2025 End: 12-27-2022 Us soft tissue head & neck real time imge docm US THYROID/PARATHYROID Radiology Routine Enlarged thyroid 1 Occurrences starting 11/27/2021 until 12/27/2022 [facility] Work Phone: Comment on above: 1 Occurrences starti ng 11/27/2021 until 12/27/2022 [facility] Immunizations Immunization Date Immunization Notes Care Provider Yolanda huerta 05-24-2023 influenza, injectabl e, quadrivalent, contains preservative Demetrice Doyle APRN.CNP Work Phone: [facility] 05-24-2023 influenza virus vaccine, unspecified formulation Ekta Ley MD Work Phone: [facility] 11-27-2021 COVID-19 vaccine, ag e 12+ yr ([employer] - [facility]) Ekta Lye MD Work Phone: [facility] 09-30-2020 influenza, injectabl e, quadrivalent, contains preservative Ekta Ley MD Work Phone: [facility] 06-16-2020 tetanus toxoid, redu marie diphtheria toxoid, and acellular pertussis vaccine, adsorbed Ekta Ley MD Work Phone: [facility] 08-30-2019 influenza, injectabl e, quadrivalent, contains preservative Ekta Ley MD Work Phone: [facility] 02-21-2019 RHO(D) immune globul in- IV or IM Ekta Ley MD Work Phone: [facility] Work Phone: 09-30-2017 influenza, injectabl e, quadrivalent, contains preservative Ekta Ley MD Work Phone: [facility] 05-27-2016 influenza, injectabl e, quadrivalent, contains preservative Ekta Ley MD Work Phone: [facility] Work Phone: 04-09-2015 pneumococcal conjuga te vaccine, 13 valent Ekta Ley MD Work Phone: [facility] 04-09-2015 pneumococcal polysaccharide vaccine, 23 valent Ekta Ley MD Work Phone: [facility] 11-06-2011 tetanus toxoid, redu marie diphtheria toxoid, and acellular pertussis vaccine, adsorbed Ekta Ley MD Work Phone: [facility] 06-24-2011 influenza virus vaccine, unspecified formulation Ekta Ley MD Work Phone: [facility] Work Phone: 06-24-2011 RHO(D) immune globul in- IV or IM Ekta Ley MD Work Phone: [facility] Work Phone: 07-08-2009 novel [id number], all formulations Ekta Ley MD Work Phone: [facility] Work Phone: 07-04-2009 influenza virus vaccine, unspecified formulation Ekta Ley MD Work Phone: [facility] Work Phone: 05-03-2008 human papilloma viru s vaccine, quadrivalent Ekta Ley MD Work Phone: [facility] Work Phone: 01-02-2008 human papilloma viru s vaccine, quadrivalent Ekta Ley MD Work Phone: [facility] Work Phone: 11-03-2007 human papilloma viru s vaccine, quadrivalent Ekta Ley MD Work Phone: [facility] 07-11-2007 influenza virus vaccine, unspecified formulation Ekta Ley MD Work Phone: [facility] 07-01-2006 influenza virus vaccine, unspecified formulation Ekta Ley MD Work Phone: [facility] Payers Date Payer Category Payer Self-pay [id number] 2017 Medicaid [id number] 2017 Medicaid [employer] [id number] 2017-Present [phone] [address] [place] [address] Medicaid [id number] 2017 Medicaid [id number] 2013 Unknown [id number] 1982 Unknown [id number] Unknown [id number] Unknown [id number] Unknown [id number] Unknown [id number] Unknown [id number] Unknown [id number] Unknown [id number] Unknown [id number] Unknown [id number] Unknown [id number] Unknown [id number] Unknown [id number] Unknown [id number] Social History Date Type Detail Facility Start: 11-27-2021 End: 12-03-2024 Tobacco smoking status NHIS Smokes tobacco daily [facility] History of tobacco use Cigarette Smoker [facility] Work Phone: Start: 11-27-2021 End: 04-18-2025 Alcohol intake Current non-drinker of alcohol (finding) [facility] Start: 10-26-2019 History SDOH Social Connections Phone [address] [facility] Start: 10-26-2019 History SDOH Social Connections Get Together [address] [facility] Start: 10-26-2019 History SDOH Social Connections [facility] [address] [facility] Start: 10-26-2019 History SDOH Social Connections Living [address] [facility] Start: 10-26-2019 History SDOH Physica l Activity DPW [address] [facility] Start: 01-11-2019 End: 03-01-2023 Tobacco Comment [address] [facility] Start: 1980 Sex Assigned At Not on file [facility] Start: 11-16-2021 End: 03-31-2022 Exposure to SARS-CoV-2 (event) Not sure [facility] Start: 12-18-2021 End: 06-12-2023 Tobacco smoking status NHIS Unknown if ever smoked [facility] Start: 03-28-2021 None [facility] Start: 03-28-2021 Cigarettes [facility] Start: 1980 Sex Assigned At Female [facility] Start: 11-27-2021 End: 02-03-2023 Cigarettes smoked current (pack per day) - Reported 0.[address] [facility] Start: 11-27-2021 End: 12-03-2024 Tobacco use and exposure Smokeless tobacco non-user [facility] Work Phone: Start: 02-03-2023 End: 03-01-2023 Tobacco use panel [facility] Start: 08-06-2012 National Score (1-10 0), lower number is lower risk [address] [facility] Do you belong to any clubs or organizations such as jehovah's witness groups, unions, fraternal or athletic groups, or school groups? No [facility] Are you now , , , , never or living with a partner? Living with partner [facility] Do you feel stress - tense, restless, nervous, or anxious, or unable to sleep at night because your mind is troubled all the time - these days [OSQ] Not at all [facility] (I/We) worried wheth er (my/our) food would run out before (I/we) got money to buy more. Never true [facility] Start: 11-29-2024 End: 04-14-2025 Tobacco smoking status NHIS Current Light tobacco smoker [facility] Start: 11-29-2024 Sex Female (finding) [facility] Functional Status Date Assessment Result Facility 04-09-2015 Are you deaf, or do you have serious difficulty hearing No 04/09/2015 8:05 AM EDT Leann Brennan C[facility] 04-09-2015 Are you blind, or do you have serious difficulty seeing, even when wearing glasses No 04/09/2015 8:05 AM EDT Leann Brennan [facility] 04-09-2015 Do you have serious difficulty walking or climbing stairs No 04/09/2015 8:05 AM EDT Leann Brennan [facility] 04-09-2015 Do you have difficul ty dressing or bathing No 04/09/2015 8:05 AM EDT Leann Brennan [facility] 04-09-2015 Because of a physica l, mental, or emotional condition, do you have difficulty doing errands alone such as visiting a physician's office or shopping No 04/09/2015 8:05 AM EDT Leann Brennan [facility] Mental Status Date Assessment Result Facility 04-09-2015 Because of a physica l, mental, or emotional condition, do you have serious difficulty concentrating, remembering, or making decisions No 04/09/2015 8:05 AM EDT Leann Brennan [facility] Clinical Notes 01-11-2019 to 05-21-2025 Edgard Gómez APRN.MECHANICAL DEVELOPMENT ENGINEER - 04/18/2025 5:42 PM Betsy Mcfadden MD - 01/14/2025 10:14 AM Jennifer Fuentes LPN - 01/14/2025 10:09 AM EDTPatient Instructions Note Date & Type Note Facility 05-21-2025 Note HNO ID: [id number] Author: ANTHONY WHITE MA Service: ? Author Type: Automation Controls Specialist Type: Progress Notes Filed: 05/23/2025 15:22 Note Text: Review of Systems Constitutional: Negative for activity change, chills, fever and unexpected weight change. Gastrointestinal: Negative for bowel retention or incontinence Genitourinary: Negative for difficulty urinating. Negative for bladder retention or incontinence Musculoskeletal: Positive for back pain. Negative for arthralgias, gait problem, joint swelling, myalgias, neck pain and neck stiffness. Neurological: Positive for numbness and headaches. Negative for weakness. Psychiatric/Behavioral: Negative for dysphoric mood, sleep disturbance and suicidal ideas. The patient is nervous/anxious. [facility] 05-21-2025 Note HNO ID: [id number] Author: MITZI ACEVEDO DO Service: ? Author Type: Physician Type: Progress Notes Filed: 05/23/2025 15:22 Note Text: [facility] Today's Date: 05/21/2025 Name: Griselda Concepcion : 1980 Purpose: New Patient Evaluation Chief complaint: Left shoulder pain that shoots up and down entire left side Referring Clinician: Self Pertinent Past Medical History: Migraine, Generalized convulsive epilepsy, Neoplasm brain, Seizures, HLD, Asthma, GERD, Goiter, Depression, Disability due to neurological disorder Pertinent Past Surgeries: Left arm cyst removed, Left foot surgery Pertinent Social History: History of Present Illness (HPI): 05/21/2025 - Initial HPI (Obtained by Mitzi Acevedo D.O.). Griselda Concepcion is a 45-year-old female presenting with hypersensitivity and pain in the left arm. Griselda reports hypersensitivity and pain in her left arm, which began approximately 14 years ago following surgery in her left axilla for cat scratch fever. Since the surgery, she has experienced hypersensitivity to touch and a real tingly pain in the arm. She avoids having the arm touched and notes that cold temperatures exacerbate the pain. She does not report any changes in skin color, or nail changes on the left arm compared to the right. She describes difficulty holding objects in her left hand, stating that items just slip right through. She has not found any treatments that alleviate the pain. She has not undergone neck surgery but did receive injections in her neck and axilla in the past, which resulted in swelling of her eye. Due to this adverse reaction, she did not pursue further injections. She has tried multiple medications, including Neurontin, Lyrica, Cymbalta, and Flexeril, without relief. She is currently taking Zoloft and Keppra for seizures but is not on any medications specifically for the arm pain. 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 She has undergone a nerve test of her left arm and hand but does not recall the results. Current Pain Medications: Neuropathics: NSAIDS: Muscle Relaxants: Topicals: Other Prescription or OTC Pain Medications: Imitrex Opioids (when applicable): Anti-depressants or Mood-Stabilizers: Zoloft Anti-Coagulants: None Therapies Attended (Current or Most Recent): No Current Therapies 05/21/2025 AG SPINE COMBINATION Questionnaire GREENLIGHT Completed Date 05/21/2025 Questionnaire Opiod Risk Tool Completed Date 05/21/2025 Greenlight Questionnaire GREENLIGHT Completed Date 05/21/2025 Opioid Risk Tool Opiod Risk Tool Date Completed 05/21/2025 INA-7 Anxiety Score 10 Completed Date 05/21/2025 PHQ9P Score 13 Completed Date 05/21/2025 (All drug screens are appropriate unless indicated otherwise) Treatment History: PAIN PROCEDURES: DATE PROCEDURE IMPROVEMENT To date, no interventional pain management procedures performed at this practice. MEDICATIONS Taken TO DATE (for the chief complaint(s)): Neuropathics: Neurontin (Gabapentin), Lyrica (Prebabalin), Cymbalta (Duloxetine), Elavil (Amitriptyline), Topamax (Topiramate) NSAIDS: Motrin (Ibuprofen), Naprosyn (Naproxen), Mobic (Meloxicam) Muscle Relaxants: Flexeril (Cyclobenzaprine) Topicals: None Other Prescription or OTC Pain Medications: Tylenol (Acetaminophen), Imitrex Opioids: Oxycodone (eg Percocet), Hydrocodone (eg [place]) Data Reviewed Today: Allergies: ALLERGIES Allergen Reactions Erythromycin Base GI Upset Ketorolac Trometham* Rash Naproxen Rash Tramadol GI Upset SOCIAL HISTORY[1] 04/18/2025 05/21/2025 INTAKE PAIN ASSESSMENT Are you having pain associated with your visit today? No Yes, Provider notified Pain Scales Verbal (Numeric Rating or Visual Analog Scale) Pain Level 10 Pain Location Arm-Forearm Left Description Numbness Duration Units Years Frequency Continuous Intervention/Comfort measure Other: See comment Compliance: PDMP website checked and validated on 05/21/2025 by Mitzi Acevedo DO + [facility] All prescriptions have been APPROPRIATELY filled. No suspicious activity was identified. Risk Assessment: INA-7: 05/21/2025 INA - 7 SCORES Score 10 (0-4) minimal anxiety, (5-9) mild anxiety, (10-14) moderate anxiety, (15-21) severe anxiety PHQ-9: 05/21/2025 PHQ-9 Score 13 (0-4) minimal depression, (5-9) mild depression, (10-14) moderate depression, (15-19) moderately severe depression, (20-27) severe depression Diagnostic Studies: Relevant Imaging: MRI Spine Report No resulted procedures found. None Electrodiagnostic Study (EMG): None Recent Labs: (more content not included)... [facility] 04-18-2025 Note HNO ID: [id number] Author: EDGARD GÓMEZ APRN.MECHANICAL DEVELOPMENT ENGINEER Service: ? Author Type: Nurse Practitioner Type: Progress Notes Filed: 04/18/2025 18:11 Note Text: Chief Complaint Patient presents with: Yearly Exam HPI Griselda Concepcion is a 45 year old female who presents here today for Above Complaints. Patient presents for annual physical. Patient has not be seen in 2 years and is currently off her atorvastatin, albuterol and zoloft. Past medical history, appointments, medications, allergies reviewed. [...] 2016 left foot surgery TONSILLECTOMY PRIMARY/SECONDARY Tonsillectomy Family [...] on File Prior to Visit Medication Sig famotidine (PEPCID) 20 mg tablet Take 1 [...] on file prior to visit. Social History SOCIAL HISTORY[1] Review of Symptoms REVIEW OF SYSTEMS SEE HPI EXAM: BP 108/70 Pulse 98 Resp 16 Ht 175.3 cm (5' 9) Wt 68.4 kg (150 lb 12.7 oz) LMP 11/27/2024 SpO2 96% BMI 22.27 kg/m? General Appearance: Well appearing, alert, in no acute distress, well-hydrated, well nourished. Skin: Skin color, texture, turgor normal, no suspicious rashes or lesions. Lungs: Lungs clear to auscultation. No wheezing, rhonchi, rales.. Heart: RRR without murmur, gallop, or rubs. No ectopy. Abdomen: Normal abdominal exam, Abdomen soft, non-tender. Bowel sounds normal. No masses, organomegaly. Musculoskeletal: No joint swelling, deformity, or tenderness. Peripheral Pulses: Normal. Neurologic: Gait normal. Reflexes normal and symmetric. Sensation grossly intact. Health Maintenance List Anxiety Screening Never done Hepatitis B Vaccine(1 of 3 - 19+ 3-dose series) Never done Cervical Cancer Screening due on 10/26/2024 Mammogram Screening due on 07/03/2025 Influenza Vaccine(1) due on 05/06/2025 Annual PCP Team Chronic Disease Visit due on 11/20/2025 DTaP,Tdap,Td Vaccine(3 - Td or Tdap) due on 06/16/2030 Pneumoc (more content not included)... [facility] 04-18-2025 History of Presen t illness Narrative Chief Complaint Patient presents with: Yearly Exam HPI Griselda Concepcion is a 45 year old female who presents here today for Above Complaints. Patient presents for annual physical. Patient has not be seen in 2 years and is currently off her atorvastatin, albuterol and zoloft. Past medical history, appointments, medications, allergies reviewed. [...] on File Prior to Visit Medication Sig famotidine (PEPCID) 20 mg tablet Take 1 [...] on file prior to visit. Social History SOCIAL HISTORY[1] Review of Symptoms REVIEW OF SYSTEMS SEE HPI EXAM: BP 108/70 Pulse 98 Resp 16 Ht 175.3 cm (5' 9) Wt 68.4 kg (150 lb 12.7 oz) LMP 11/27/2024 SpO2 96% BMI 22.27 kg/m General Appearance: Well appearing, alert, in no acute distress, well-hydrated, well nourished. Skin: Skin color, texture, turgor normal, no suspicious rashes or lesions. Lungs: Lungs clear to auscultation. No wheezing, rhonchi, rales.. Heart: RRR without murmur, gallop, or rubs. No ectopy. Abdomen: Normal abdominal exam, Abdomen soft, non-tender. Bowel sounds normal. No masses, organomegaly. Musculoskeletal: No joint swelling, deformity, or tenderness. Peripheral Pulses: Normal. Neurologic: Gait normal. Reflexes normal and symmetric. Sensation grossly intact. Health Maintenance List Anxiety Screening Never done Hepatitis B Vaccine(1 of 3 - 19+ 3-dose series) Never done Cervical Cancer Screening due on 10/26/2024 Mammogram Screening due on 07/03/2025 Influenza Vaccine(1) due on 05/06/2025 Annual PCP Team Chronic Disease Visit due on 11/20/2025 DTaP,Tdap,Td Vaccine(3 - Td or Tdap) due on 06/16/2030 Pneumococcal Vaccine(3 of 3 - PCV20 or PCV21) due on 2032 HPV Vaccine Completed Hepatitis C Screening Completed HIV Screening Completed ASSESSMENT/PLAN: 1. Annual physical exam - ICD9: V70.0, ICD10: Z00.00 (primary diagnosis) - Counseled on healthy diet and regular exercise - Smoking cessation encouraged; discussed health risks and quitting strategies. Patient is not ready to quit - Follow up for annual exam in one year - COMPLETE BLOOD COUNT AND DIFFERENTIAL - COMPREHENSIVE METABOLIC PANEL 2. Mixed hyperlipidemia - ICD9: 272.2, ICD10: E78.2 - Control undetermined, due for labs - Continue current medications - Counseled on healthy diet and regular exercise - LIPID PANEL, NONFASTING - ATORVASTATIN 80 MG TABLET 3. Gastroesophageal reflux disease with esophagitis without hemorrhage - ICD9: 530.81, 530.10, ICD10: K21.00 - Continue treatment with Pepcid 20 mg QD - COMPLETE BLOOD COUNT AND DIFFERENTIAL 4. Medication management - ICD9: V58.69, ICD10: Z79.899 - THYROID STIMULATING HORMONE 5. Screening for diabetes mellitus - ICD9: V77.1, ICD10: Z13.1 - HEMOGLOBIN A1C 6. Recurrent major depressive disorder, remission status unspecified - ICD9: 296.30, ICD10: F33.9 - SERTRALINE 50 MG TABLET 7. Mild intermittent asthma without complication (HCC) - ICD9: 493.90, ICD10: J45.20 - Mild intermittent asthma stable - Continue current medications - Avoidance of triggers recommended - Asthma Action Plan reviewed - ALBUTEROL SULFATE HFA 90 MCG/ACTUATION AEROSOL INHALER Edgard Gómez APRN.MECHANICAL DEVELOPMENT ENGINEER [1] Social History Tobacco Use Smoking status: Every Day Current packs/day: 0.50 Average packs/day: 0.5 packs/day for 18.0 years (9.0 ttl pk-yrs) Types: Cigarettes Smokeless tobacco: Never Vaping Use Vaping status: Never Used Substance Use Topics Alcohol use: No Drug use: No documented in this encounter [facility] 01-14-2025 Note HNO ID: [id number] Author: BETSY JALLOH MD Service: ? Author [...] On doxy. Saw ID who agreed with correction doxy for now. Discussed importance of smoking cessation for resolution of infection. Lifetime risk 22.6%, Breast density BIRADS B. Due for mammograms in 6 months. No tamoxifen given current smoking. Follow up with [facility]. Betsy Jalloh MD [facility] 01-14-2025 History of Presen t illness Narrative Ms Concepcion is a 44 year old female here today for wound check. She is status post excision of left breast periareolar fistula on 12/03/24. Pathology returned inflammation. Cultures growing actinomyces. Left breast incision intact. No current drainage. Erythema resolved. On doxy. Saw ID who agreed with ocean transportation intermediary doxy for now. Discussed importance of smoking cessation for resolution of infection. Lifetime risk 22.6%, Breast density BIRADS B. Due for mammograms in 6 months. No tamoxifen given current smoking. Follow up with [facility]. Betsy Jalloh MD Patient here for one month follow up .Patient stated she is some drainage not a lot .Pain is intermittent. Jennifer Rahman LPN documented in this encounter [facility] 01-14-2025 Note HNO ID: [id number] Author: JENNIFER RAHMAN LPN Service: ? Author Type: LICENSED NURSE Type: Progress Notes Filed: 01/14/2025 10:25 Note Text: Patient here for one month follow up .Patient stated she is some drainage not a lot .Pain is intermittent. Jennifer Rahman LPN [facility] 12-20-2024 Telephone encounter Note I spoke with [...] up with Dr Jalloh as scheduled 01/14. [facility] Work Phone: 12-20-2024 Miscellaneous Notes I [...] Gerardo Farrar RN documented in this encounter [facility] 12-20-2024 Telephone encounter Note Summary: pt [...] to work. Please advise. Gerardo Farrar RN [facility] 12-12-2024 Instructions Chan Apple MD - 12/12/2024 9:30 AM EDT - to go to the lab - call me with updates on TuesdayDecember 17 - f/u virtually after 2-3 wks - continue Doxycycline as prescribed by Dr. Jalloh documented in this encounter [facility] 12-12-2024 Note HNO ID: [id number] Author: CHAN APPLE MD Service: ? Author [...] has reported, the patient will see a bread baker for evaluation soon. Regarding amoxicillin, the patient [...] warmth at the site, as noted by [facility]. The culture revealed the presence [...] intractable epilepsy sei (more content not included)... [facility] 12-12-2024 History of Presen t illness Narrative [...] has reported, the patient will see a bread baker for evaluation soon. Regarding amoxicillin, the patient [...] warmth at the site, as noted by [facility]. The culture revealed the presence [...] satisfaction. Chan Apple MD [facility] [place] Pager: [phone] December 12, 2024 documented in this encounter [facility] 12-11-2024 Note HNO ID: [id number] Author: BETSY JALLOH MD Service: ? Author [...] for resolution of infection. Betsy Jalloh MD [facility] 12-11-2024 History of Presen t illness Narrative [...] Jennifer Rahman LPN documented in this encounter [facility] 12-11-2024 Note HNO ID: [id number] Author: JENNIFER RAHMAN LPN Service: ? Author Type: LICENSED NURSE Type: Progress Notes Filed: 12/12/2024 08:26 Note Text: Patient here for post op visit.Patient relates incision is draining yellow bloody color and intact.Patient stated incision is red and painful 9/10 left breast.Patient stated site has a smell. Jennifer Rahman LPN [facility] 12-07-2024 Telephone encounter Note I spoke with patient. Prescription sent. [facility] Work Phone: 12-07-2024 Miscellaneous Notes I [...] Gerardo Farrar RN documented in this encounter [facility] 12-07-2024 Telephone encounter Note Summary: pt question Pt mother called in, pt is having ongoing pain after excision on 12/03. Mother states site is slightly pink, no drainage. Some swelling. No fevers. They are requesting something else for pain. Pt used all of ordered percocet but said she did not like how it made her feel. Please advise. Gerardo Farrar RN [facility] 12-03-2024 Note HNO ID: [id number] Author: CLINTON MARTINEZ APRN.MONITORING AND EVALUATION ADVISOR Service: Anesthesiology Author Type: Nurse Waste Minimization Technician Type: Anesthesia Procedure Notes Filed: 12/03/2024 13:15 Note Text: ANESTHESIOLOGY PROCEDURE NOTE Airway General Information Procedure Start Time/Medication Administration: 12/03/2024 1:03 PM Procedure End Time: 12/03/2024 1:03 PM Patient location during procedure: OR Timeout Performed Pre-procedure: timeout performed Consent Obtained: Yes Patient identity confirmed: arm band and patient Staffing MONITORING AND EVALUATION ADVISOR: Clinton Martinez APRN.MONITORING AND EVALUATION ADVISOR Performed by: BECKY Indications and Patient Condition Indications for airway management: anesthesia Preoxygenated: yes anesthesia circuit Patient position: sniffing Method: asleep Final Airway Details Final airway type: supraglottic airway Number of attempts at approach: 1 Final Supraglottic Airway: i-gel Size 4 Seal Adequate: yes SIGNATURE: Clinton Martinez APRN.MONITORING AND EVALUATION ADVISOR PATIENT NAME: Griselda Concepcion DATE: December 03, 2024 TIME: 1:14 PM CSN: [id number] [facility] 11-28-2024 Telephone encounter Note Patient was notified regarding her upcoming surgery on 12/03/24 at 1:30 pm, patient to arrive at 11:15 am, presurgical testing day of surgery at 11:30 am, and post op appointment on 12/11/24 at 10:15 am. Jordyn Linn MA [facility] 11-28-2024 Miscellaneous Notes Patient was notified regarding her upcoming surgery on 12/03/24 at 1:30 pm, patient to arrive at 11:15 am, presurgical testing day of surgery at 11:30 am, and post op appointment on 12/11/24 at 10:15 am. Jordyn Linn MA documented in this encounter [facility] 11-27-2024 Note HNO ID: [id number] Author: BETSY JALLOH MD Service: ? Author Type: Physician Type: Progress Notes Filed: 12/26/2024 08:48 Note Text: Betsy Jalloh MD [facility] [address] [place], [place] [id number] SUBJECTIVE Chief Complaint: Patient presents with: Follow [...] family, and social history were reviewed by Btesy Jalloh MD ALLERGIES Allergen Reactions Erythromycin Base [...] file for t (more content not included)... [facility] 11-27-2024 History of Presen t illness Narrative Images from the original note were not included. Betsy Jalloh MD [facility] [address] [place], [place] [id number] SUBJECTIVE Chief Complaint: Patient presents with: Follow [...] was discussed with the patient or authorized passenger representative. The patient or authorized passenger representative has agreed to proceed with the [...] H&P pre testing, surgery post op. Betsy Jalloh MD 11/27/2024 1:52 PM Patient presents for follow up after imaging.Patient stated soreness in the left breast.Patient stated yellowish drainage over the weekend from left breast. Jennifer Rahman LPN documented in this encounter [facility] 11-27-2024 Note HNO ID: [id number] Author: JENNIFER RAHMAN LPN Service: ? Author Type: LICENSED NURSE Type: Progress Notes Filed: 12/26/2024 08:48 Note Text: Patient presents for follow up after imaging.Patient stated soreness in the left breast.Patient stated yellowish drainage over the weekend from left breast. Jennifer Rahman LPN [facility] 11-27-2024 History of Presen t illness Narrative [...] PATIENT PRESENTS WITH AN IMPLANTABLE OR ATTACHED KNIT GOODS PRESS HAND: No RADIOLOGY DEPARTMENT: Ultrasound PERIPHERAL IV DATA: Not applicable SIGNED BY: BARBARA Mills) November 27, 2024 1:26 PM documented in this encounter [facility] 11-27-2024 Note HNO ID: [id number] Author: LETICIA LEE RT(R) Service: ? Author [...] PATIENT PRESENTS WITH AN IMPLANTABLE OR ATTACHED KNIT GOODS PRESS HAND: No RADIOLOGY DEPARTMENT: Ultrasound PERIPHERAL IV DATA: Not applicable SIGNED BY: BARBARA Mills) November 27, 2024 1:26 PM [facility] 11-21-2024 Telephone encounter Note Patient notified of results and provider's instructions. Patient verbalizes understanding. Maribel Fuentes LPN [facility] 11-21-2024 Miscellaneous Notes Patient notified of results and provider's instructions. Patient verbalizes understanding. Maribel Fuentes LPN Negative for covid/flu/rsv. Continue as discussed with documented in this encounter [facility] 11-21-2024 Telephone encounter Note Negative for covid/flu/rsv. Continue as discussed with [facility] Work Phone: 11-20-2024 Note SARS-COV-2 (AGENT OF COVID-19) RNA: Not detected INFLUENZA A RNA: Not detected INFLUENZA B RNA: Not detected RESPIRATORY SYNCYTIAL VIRUS (RSV) RNA: Not detected [facility] Comment on above: Performed By: #### 9 [id number] #### [facility] CLIA [id number] [address] [place] [address] [place] 11-20-2024 Note HNO ID: [id number] Author: EDGARD GÓMEZ APRN.MECHANICAL DEVELOPMENT ENGINEER Service: ? Author Type: Nurse Practitioner Type: Progress Notes Filed: 11/20/2024 15:54 Note Text: Chief Complaint Patient presents with: Cough Fatigue Head Congestion HPI Griselda M Jamey is a 44 year old female who presents here today for Above Complaints.. Patient presents for head congestion, fatigue, and cough x3 days. Reports she called off work yesterday and today. Reports she works at a [employer] and comes into contact with viral illnesses. [...] Influenza Vaccine(1) due on 05/06/2024 Covid-19 Vaccine( season) due on 05/06/2024 Annual PCP Team Chronic Disease Visit due on 05/24/2024 (more content not included)... [facility] 11-20-2024 History of Presen t illness Narrative Chief Complaint Patient presents with: Cough Fatigue Head Congestion HPI Griselda Emeka Concepcion is a 44 year old female who presents here today for Above Complaints.. Patient presents for head congestion, fatigue, and cough x3 days. Reports she called off work yesterday and today. Reports she works at a f[employer] and comes into contact with viral illnesses. [...] Influenza Vaccine(1) due on 05/06/2024 Covid-19 Vaccine( season) due on 05/06/2024 Annual PCP Team [...] A/B & RSV PCR, ROUTINE Edgard Gómez APRN.MECHANICAL DEVELOPMENT ENGINEER documented in this encounter [facility] 11-06-2024 Note HNO ID: [id number] Author: BETSY JALLOH MD Service: ? Author Type: Physician Type: Progress Notes Filed: 11/19/2024 08:16 Note Text: Betsy Jalloh MD [place] [id number] SUBJECTIVE Chief Complaint: Patient presents with: New [...] 90 mcg/actuation in (more content not included)... [facility] 11-06-2024 History of Presen t illness Narrative Images from the original note were not included. Betsy Jalloh MD [facility] [address] [place], [place] [id number] SUBJECTIVE Chief Complaint: Patient presents with: New [...] was discussed with the patient or authorized passenger representative. The patient or authorized passenger representative has agreed to proceed with the [...] and breast surgeries. Patient stated pain 11/12 Jennifer Rahman LPN documented in this encounter [facility] 11-06-2024 Note HNO ID: [id number] Author: JENNIFER RAHMAN LPN Service: ? Author Type: LICENSED NURSE Type: Progress Notes Filed: 11/19/2024 08:16 Note Text: New patient being seen for history of breast cysts .Patient stated she had multiple biopsies and breast surgeries. Patient stated pain 11/12 Jennifer Rahman LPN [facility] 11-04-2024 Telephone encounter Note Patient calling with request for refill of her albuterol HFA (VENTOLIN HFA) 90 mcg/actuation inhaler . Patient denies any new or worsening symptoms of which a provider is not aware: Yes. Allergies reviewed. Patient uses [facility] [address] - [place] [address] - [address] [facility] - [phone] [facility] 11-04-2024 Miscellaneous Notes Patient calling with request for refill of her albuterol HFA (VENTOLIN HFA) 90 mcg/actuation inhaler . Patient denies any new or worsening symptoms of which a provider is not aware: Yes. Allergies reviewed. Patient uses [facility] [address] - [place] [address] [address] [facility] - [phone] documented in this encounter [facility] 08-06-2024 Evaluation note Diagnosis Onset Date Resolution Left breast abscess chronic Decem nitesh 2023 8:36am Left breast abscess chronic Decem nitesh 2023 8:41am Left breast abscess chronic Janua ry 2024 2:42pm [facility] Work Phone: [phone]) 791-469110-29-2024 Telephone encounter Note* Telephone Encounter - Marysol Pimentel MA - 07/03/2024 11:05 AM EDT Notified via [employer]. Marysol Pimentel MA [facility]10-29-2024 Miscellaneous Notes* Telephone Encounter - Marysol Pimentel MA - 07/03/2024 11:05 AM EDT Notified via [employer]. Marysol Pimentel MA * Telephone Encounter - [...] Thank you. Demetrice Jurado. [facility] Telephone encounter Note * Telephone Encounter [...] found Please advise. Thank you. Demetrice Jurado. [facility]09-16-2024 History of Present illness Narrative* Summer Roman APRN.[facility] - 05/21/2024 6:33 PM EDT CC: Patient [...] symptoms occur. Patient agreeable to treatment plan. Summer Roman APRN.MECHANICAL DEVELOPMENT ENGINEER [facility] History of Present illness Narrative* Lencho Cueto - 04/05/2024 10:48 AM EDT Initial [...] office LOVE Forrest DPM Podiatry [address] [facility] [address] Dept: [phone] Dept * Betsy Snowden RN - 04/05/2024 10:29 AM EDT Patient presents with: Left Great Toe - Established Patient, Ingrown Toenail Patient presents for possible nail infection. States a few days ago she noticed darkness under nail. She trimmed her nail and clearish liquid came out. States that she had worn some shoes that were too small prior to this. [facility] Telephone encounter Note * Telephone Encounter - Nelida Amos - 03/28/2024 [...] Nelida Amos March 28, 2024 1:[address] [facility]07-24-2024 Miscellaneous Notes* Telephone Encounter - Nelida [...] 28, 2024 1:36 PM [facility] History of Present illness Narrative* Darlyn Hodgson APRN.MECHANICAL DEVELOPMENT ENGINEER - 02/16/2024 5:56 PM EDT This note was created using [employer]. Subjective Griselda Concepcion is a 43 year old female. 43 year old female with PMH epilepsy, migraines, hyperlipidemia, asthma and GERD presents for illness. Acute onset today +nasal rhinorrhea +green +headache +sinus pressure +congestion Denies cough Denies fever or chills Denies N/V/D Denies body aches or fatigue Has used Mucinex +tobacco smoker The history is provided by the patient. No slitting machine feeder was used. Sinus Problem This is a [...] , then ATB can be considered. Darlyn Hodgson APRN.MECHANICAL DEVELOPMENT ENGINEER [facility] Miscellaneous Notes* Telephone Encounter - Erika Lubin LPN - 12/19/2023 3:31 PM EDT Patient notified. Erika Lubin LPN * Telephone Encounter - Ekta Ley MD - 12/19/2023 2:45 PM EDT Albuterol refill sent to [facility]. * Telephone Encounter - Laurie Duron - 12/19/2023 2:12 PM EDT Griselda is calling Ekta Ley MD today with concern regarding medication request. Patient requesting her rescue inhaler. She does not know the name of it. Patient has been identified by name and birthdate. Duration of symptoms: N/A Person calling: self Call patient at: on cell [phone] (home) [phone] (cell) Was an appointment scheduled: No Closing statement: Results or non-symptom based questions: Thank you for calling [facility], your call will be returned within the next business day. Laurie Duron [facility] Miscellaneous Notes* Telephone Encounter - Laurie Duron - 12/14/2023 1:58 PM EDT Griselda is calling Ekta Ley MD today with concern regarding Refill Request Patient states that she needs all of her medication refilled except for her seizure medication. Please send medications to [facility] in [place]. Patient has been identified by name and birthdate. Duration of symptoms:NA Person calling: self Call patient at: on cell [phone] (home) [phone] (cell) Was an appointment scheduled: No Closing statement: Results or non-symptom based questions: Thank you for calling [facility], your call will be returned within the next business day. Laurie Duron [facility] Miscellaneous Notes* Telephone Encounter - Kelsie [...] has asthma. 10. : no Protocols used: [id number] documented [facility]23 Miscellaneous Notes* Telephone Encounter - Kat [...] and advise. Lizabeth Kilgore documented [facility] History of Present illness Narrative* RuthlogDemetrice grissom APRN.MECHANICAL DEVELOPMENT ENGINEER - 05/24/2023 9:42 AM EDT 05/24/2023 Patient [...] No history of dysuria, frequency or incontinence STORE COORDINATOR: Negative for abnormal vaginal bleeding, abnormal vaginal [...] agreeable to treatment plan. [facility]23 Miscellaneous Notes* Telephone Encounter - Nancy [...] and advise. Ashly Barlow documented [facility]23 Miscellaneous Notes* Telephone Encounter - La Nena Calix LPN - 01/28/2023 2:07 PM EDT [facility] 05/02/22 NOV 02/03/23 * Telephone Encounter - Laurie [...] notify patient. Laurie Duron documented [facility]23 Miscellaneous Notes* Telephone Encounter - Edgard Gómez APRN.[facility]NE - 11/08/2022 11:17 AM EST Refills sent. Patient needs scheduled for wellness visit. * Telephone Encounter - La Nena Calix LPN - 11/05/2022 3:16 PM EST [facility] 01/04/22 NOV no upcoming appointment noted * Telephone Encounter - Linda Yu - 11/05/2022 2:44 PM EST Pharmacy verified in [facility] Patient has been identified by name and [...] advise. Linda Ornelas Pss documented [facility]2022 Miscellaneous Notes* Telephone Encounter - Marisela [...] patient. Marisela Salgado LPN [facility]2022 Miscellaneous Notes* Telephone Encounter - La [...] Calix LPN * Telephone Encounter - Laurie Domi - 05/13/2022 2:21 PM EDT Patient has been identified by name and date of : Yes Patient's mother calling to request patient's inhaler be refilled. Mother did not know the name of it. Please send to [facility]. RX INSTRUCTIONS: Patient aware RX will be sent to pharmacy. No need to notify patient. Laurie Domi documented [facility]07[facility]22 History of Present illness Narrative* Betsy [...] the left breast abscess on 03/11/22 at [facility]. The patient notes no complaints of fever [...] plan. Betsy Romeo PA-C documented [facility]07[facility]2022 Instructions* Patient Instructions* Betsy Romeo PA-C - 03/31/2022 3:23 PM EDT -Continue cleansing wound daily with antibacterial soap and water and/or saline -OK to lightly scrub inside of wound with damp washcloth -Follow up in 10-14 days for wound check [facility] History of Present illness Narrative* Betsy Romeo PA-C - 03/30/2022 1:32 PM EDT FOLLOW UP VISIT - ABSCESS NAME: Griselda Concepcion [facility] NO.: [id number] DATE OF SERVICE: 03/24/2022 : 1980 REFERRING PHYSICIAN: Ekta Ley MD Griselda is a patient I am following with Dr. Ivy for recurrent abscess of her left breast. Dr. Ivy performed an incision and drainage of the left breast abscess on 03/11/22 at [facility]. The patient notes no complaints of fever since the procedure. Pain has been mild to moderate. VITALS: Blood pressure 108/62, pulse 97, temperature 36.1 C (97 F), height 172.7 cm (5' 8), upwtdf13.9 kg (196 lb), last menstrual period 03/03/2022, [...] encounter Betsy Romeo PA-C [facility]22 Instructions* Patient Instructions* Betsy Romeo PA-C - 03/24/2022 9:08 AM EDT Continue daily wet-to-dry dressing changes Follow up for wound check in 7-10 days Alternate ibuprofen and tylenol for pain control [facility] History of Present illness Narrative* Kalpana Ivy MD - 03/16/2022 1:41 PM EDT FOLLOW UP VISIT NAME: Griselda Concepcion [facility] NO.: [id number] DATE OF SERVICE: 03/16/2022 : 1980 REFERRING [...] others. Kalpana Ivy MD documented in [facility]07[facility] Nurse Note* Lavon Candelaria RN - [...] both with voiced understanding. documented [facility] Hospital course Narrative * Kalpana Ivy [...] March 15, thank you. documented in this [facility]Mount [facility]22 Miscellaneous Notes* Brief Op Note - Kalpana Ivy MD - 03/11/2022 2:57 PM EDT BRIEF OPERATIVE NOTE SURGERY DATE: 03/11/2022 Incision/Procedure Start Time: 14:40 Incision Close/Procedure End Time: 14:52 Surgeon(s)/Proceduralist(s) and Beauty Therapist(s): first Bijufirst responder Betsy Romeo Procedures: Deep incision and drainage [...] 2022 TIME: 2:57 PM documented in [facility] History and physical note * Kalpana Ivy MD - 03/10/2022 3:27 PM EDT HISTORY AND PHYSICAL Griselda Concepcion 1980 REFERRING PHYSICIAN: MD Alexey CHIEF COMPLAINT: Follow Up (right breast abscess) HPI: The patient is a 42 year old female presents with recurrent left breast abscess. She is s/p incision I&D at [facility] in December of this year. She has [...] has no further questions. documented in this [facility]Mount [facility] History of Present illness Narrative* Kalpana Ivy MD - 03/09/2022 3:41 PM EDT HISTORY AND PHYSICAL Griselda Concepcion 1980 REFERRING PHYSICIAN: MD Alexey CHIEF COMPLAINT: Follow Up (right breast abscess) HPI: The patient is a 42 year old female presents with recurrent left breast abscess. She is s/p incision I&D at [facility] in December of this year. She has [...] The patient is scheduled for surgery at [facility] on March 11. Medical Decision Making: Problems: Low: Acute, uncomplicated illness or injury Risk: Moderate: Decision on minor surgery w/ risk factors Medical Decision Making Level: 3 - Low . Kalpana Ivy MD documented in this encounterMount [facility] Miscellaneous Notes* Telephone Encounter - Tyrell [...] on Tue at 120. documented in this encounterMount [facility]06[facility]22 History of Present illness Narrative* Jacob Weinstein MD - 02/13/2022 6:34 AM EDT FOLLOW UP VISIT NAME: Griselda [facility] NO.: [id number] DATE OF SERVICE: February 11, 2022 : [...] had been seen on December 16 and CROZE CUTTER for was felt to be a hard [...] follow-up with me in 1 week Jacob Weinstein MD documented in this encounterMount [facility] History of Present illness Narrative* Jacob Weinstein MD - 01/15/2022 8:48 AM EDT FOLLOW UP VISIT NAME: Griselda Concepcion [facility] NO.: [id number] DATE OF SERVICE: January 14, 2022 : [...] had been seen on December 16 and CROZE CUTTER for was felt to be a hard [...] weeks. Jacob Weinstein MD documented in this encounterMount [facility]. [facility]05[facility]22 Miscellaneous Notes* Telephone Encounter - Lorri Wright RN - 01/11/2022 10:25 AM EDT Received a request from Griselda to fax medical records related to her left breast abscess, that Dr. Weinstein has been treating her for, to be faxed to [facility]. Records faxed. Fax confirmation sheet received. Lorri Wright RN documented in this encounterMount [facility]. [facility]05[facility]22 History of Present illness Narrative* Jacob Weinstein MD - 01/05/2022 4:12 PM EDT FOLLOW UP VISIT NAME: Griselda Concepcion [facility] NO.: [id number] DATE OF SERVICE: January 05, 2022 : [...] had been seen on December 16 and CROZE CUTTER for was felt to be a hard [...] weeks. Jacob Weinstein MD documented in this [facility]Mount [facility]05[facility] History of Present illness Narrative* Ekta Ley MD - 01/04/2022 4:04 PM EDT Chief Complaint Patient presents with: Pain: open surgical site to leftt breast after surgey HPI Griselda Concepcion is a 41 year old female who presents here today for Above Complaints.. Patient states that she had I&D of left breast abscess on 12/[address] Weinstein in [place] without complications. States that she needs [...] above. Ekta Ley MD documented in this encounterMount [facility]04[facility]26-[facility]22 History of Present illness Narrative* Jacob [...] had been seen on December 16 and CROZE CUTTER for was felt to be a hard [...] mass index is 30.72kg/m . SCDs needed: Beauty Therapist Needed: Pre Op Clearance: None Anticoagulation: No Diabetic: No Location: [place] Diagnoses: (N61.1) Breast abscess (primary encounter diagnosis) My findings have been communicated to Yani Puente via shared medical record. This note will be forwarded to Ekta Ley MD. Return to Clinic: The patient is instructed to follow-up with me post operatively Jacob Weinstein MD documented in this encounterMount [facility]. [facility]04[facility]22 History of Present illness Narrative* Jacob Weinstein MD - 12/23/2021 10:28 AM EDT FOLLOW UP VISIT NAME: [facility] NO.: [id number] DATE OF SERVICE: 12/22/2021 : 1980 REFERRING PHYSICIAN: MD Griselda Wilson is a patient I am following for [...] had been seen on December 16 and CROZE CUTTER for was felt to be a hard [...] days. Jacob Weinstein MD documented in this encounterMount [facility]. [facility]04-15-2022 Miscellaneous Notes* Telephone Encounter - Lorri Wright RN - 12/18/2021 12:33 PM EDT Spoke with Griselda ([phone]) advised that she can take acetaminophen or [...] can take for pain. documented in this encounterMount [facility]. [facility]04-15-2022 History of Present illness Narrative* Jacob [...] had been seen on December 16 and CROZE CUTTER for was felt to be a hard [...] days. Jacob Weinstein MD documented in this encounterMount [facility]. [facility]04-14-2022 Instructions* Patient Instructions* Yani Puente APRN.CNP - 12/17/2021 1:45 PM EDT Ppt with Dr Weinstein tomorrow at 8:20. documented in this encounterMount [facility]. [facility]04-14-2022 History of Present illness Narrative* Yani [...] L1 SAB2 IAB0 Ectopic0 Multiple0 Live Births1 Slip Mixer History LMP: 12/07/2021, Having periods Age at Menarche: Age at First : Age at Menopause: Slip Mixer History Comments: Sexual Activity: Yes; Male Contraception: [...] 8:20 am. Follow-up as needed. Yani Puente APRN.SHYANNE I spent a total of 25 minutes on the date of the service which included preparing to see the patient, [id number] patient care, completing clinical documentation, obtaining and/or reviewing separately obtained history, performing a medically appropriate examination, counseling and educating the pat ient/family/caregiver, ordering medications, tests, or procedures and communicating with other HCPs(not separately reported). documented in this encounterMount [facility]. [facility]04-14-2022 Miscellaneous Notes* Telephone Encounter - Rose [...] if she can be seen sooner at [facility].Rose Berumen LPN ' documented in this encounterMount [facility]. [facility]04-13-2022 History of Present illness Narrative* Lina [...] HISTORY OF LEEP PAST SURGICAL HISTORY OF 2015 left foot surgery TONSILLECTOMY PRIMARY/SECONDARY <AGE [...] breast mass. PLAN: Office Visit on 12/16/21 [facility] BILAT BREAST LTD LT A discussion was held with the patient and patient who agrees with plan of care. Will notify patient of results. Lina Kenny APRN.CNM documented in this encounterMount [facility]. [facility]04-06-2022 Miscellaneous Notes* Telephone Encounter - Danette [...] labs in 3 months. documented in this encounterMount [facility]. [facility]03-28-2022 History of Present illness Narrative* Darlyn Rockwell RDMS - 11/30/2021 2:30 PM EDT Radiology Service Progress Note PATIENT NAME: Griselda Concepcoin DATE OF SERVICE: November 30, 2021 TIME: [...] 30, 2021 2:11 PM documented in this encounterMount [facility]03-25-2022 History of Present illness Narrative* Ekta [...] No history of dysuria, frequency or incontinence STORE COORDINATOR: Negative for abnormal vaginal bleeding, abnormal vaginal [...] THYROID/PARATHYROID Ekta Ley MD documented in this encounterMount [facility]. [facility]05-09-2019 History of Past illness Narrative* Problem [...] 05/17/2012 04/09/2015 Overview: Per ER report at [facility] 05/06/12-Naproxen. Skin lesion 01/19/2012 04/09/2015 Porokeratosis 06/04/2011 04/09/2015 Supervision of normal first 05/25/2011 05/25/2011 Supervision of other high-risk (V23.89) 05/25/2011 12/20/2012 Papanicolaou smear of cervix with atypical squamous cells of undetermined significance (ASC-US) 08/14/2008 04/09/2015 Cervical high risk human pap illomavirus (HPV) DNA test positive 08/14/2008 04/09/2015 Obesity, unspecified 04/20/2007 04/09/2015 documented as of this encounter (statuses as of 11/27/2021) [facility] of [facility] Narrative* Problem [...] 05/17/2012 04/09/2015 Overview: Per ER report at [facility] 05/06/12-Naproxen. Skin lesion 01/19/2012 04/09/2015 Porokeratosis 06/04/2011 04/09/2015 Supervision of normal first 05/25/2011 05/25/2011 Supervision of other high-risk (V23.89) 05/25/2011 12/20/2012 Papanicolaou smear of cervix with atypical squamous cells of undetermined significance (ASC-US) 08/14/2008 04/09/2015 Cervical high risk human pap illomavirus (HPV) DNA test positive 08/14/2008 04/09/2015 Obesity, unspecified 04/20/2007 04/09/2015 documented as of this encounter (statuses as of 12/01/2021) [facility] Narrative* Problem [...] 05/17/2012 04/09/2015 Overview: Per ER report at [facility] 05/06/12-Naproxen. Skin lesion 01/19/2012 04/09/2015 Porokeratosis 06/04/2011 04/09/2015 Supervision of normal first 05/25/2011 05/25/2011 Supervision of other high-risk (V23.89) 05/25/2011 12/20/2012 Papanicolaou smear of cervix with atypical squamous cells of undetermined significance (ASC-US) 08/14/2008 04/09/2015 Cervical high risk human pap illomavirus (HPV) DNA test positive 08/14/2008 04/09/2015 Obesity, unspecified 04/20/2007 04/09/2015 documented as of this encounter (statuses as of 12/09/2021) [facility] Narrative* Problem [...] 05/17/2012 04/09/2015 Overview: Per ER report at [facility] 05/06/12-Naproxen. Skin lesion 01/19/2012 04/09/2015 Porokeratosis 06/04/2011 04/09/2015 Supervision of normal first 05/25/2011 05/25/2011 Supervision of other high-risk (V23.89) 05/25/2011 12/20/2012 Papanicolaou smear of cervix with atypical squamous cells of undetermined significance (ASC-US) 08/14/2008 04/09/2015 Cervical high risk human pap illomavirus (HPV) DNA test positive 08/14/2008 04/09/2015 Obesity, unspecified 04/20/2007 04/09/2015 documented as of this encounter (statuses as of 12/16/2021) [facility] Narrative* Problem [...] 05/17/2012 04/09/2015 Overview: Per ER report at [facility] 05/06/12-Naproxen. Skin lesion 01/19/2012 04/09/2015 Porokeratosis 06/04/2011 04/09/2015 Supervision of normal first 05/25/2011 05/25/2011 Supervision of other high-risk (V23.89) 05/25/2011 12/20/2012 Papanicolaou smear of cervix with atypical squamous cells of undetermined significance (ASC-US) 08/14/2008 04/09/2015 Cervical high risk human pap illomavirus (HPV) DNA test positive 08/14/2008 04/09/2015 Obesity, unspecified 04/20/2007 04/09/2015 documented as of this encounter (statuses as of 12/17/2021) [facility] Narrative* Problem [...] 05/17/2012 04/09/2015 Overview: Per ER report at [facility] 05/06/12-Naproxen. Skin lesion 01/19/2012 04/09/2015 Porokeratosis 06/04/2011 04/09/2015 Supervision of normal first 05/25/2011 05/25/2011 Supervision of other high-risk (V23.89) 05/25/2011 12/20/2012 Papanicolaou smear of cervix with atypical squamous cells of undetermined significance (ASC-US) 08/14/2008 04/09/2015 Cervical high risk human pap illomavirus (HPV) DNA test positive 08/14/2008 04/09/2015 Obesity, unspecified 04/20/2007 04/09/2015 documented as of this encounter (statuses as of 12/17/2021) [facility] Narrative* Problem [...] 05/17/2012 04/09/2015 Overview: Per ER report at [facility] 05/06/12-Naproxen. Skin lesion 01/19/2012 04/09/2015 Porokeratosis 06/04/2011 04/09/2015 Supervision of normal first 05/25/2011 05/25/2011 Supervision of other high-risk (V23.89) 05/25/2011 12/20/2012 Papanicolaou smear of cervix with atypical squamous cells of undetermined significance (ASC-US) 08/14/2008 04/09/2015 Cervical high risk human pap illomavirus (HPV) DNA test positive 08/14/2008 04/09/2015 Obesity, unspecified 04/20/2007 04/09/2015 documented as of this encounter (statuses as of 12/18/2021) [facility] Narrative* Problem [...] diagnosed in [address] Moay. She denies any depression. She denies ever [...] 05/17/2012 04/09/2015 Overview: Per ER report at [facility] 05/06/12-Naproxen. Skin lesion 01/19/2012 04/09/2015 Porokeratosis 06/04/2011 04/09/2015 Supervision of normal first 05/25/2011 05/25/2011 Supervision of other high-risk (V23.89) 05/25/2011 12/20/2012 Papanicolaou smear of cervix with atypical squamous cells of undetermined significance (ASC-US) 08/14/2008 04/09/2015 Cervical high risk human pap illomavirus (HPV) DNA test positive 08/14/2008 04/09/2015 Obesity, unspecified 04/20/2007 04/09/2015 documented as of this encounter (statuses as of 12/18/2021) [facility] Narrative* Problem [...] 05/17/2012 04/09/2015 Overview: Per ER report at [facility] 05/06/12-Naproxen. Skin lesion 01/19/2012 04/09/2015 Porokeratosis 06/04/2011 04/09/2015 Supervision of normal first 05/25/2011 05/25/2011 Supervision of other high-risk (V23.89) 05/25/2011 12/20/2012 Papanicolaou smear of cervix with atypical squamous cells of undetermined significance (ASC-US) 08/14/2008 04/09/2015 Cervical high risk human pap illomavirus (HPV) DNA test positive 08/14/2008 04/09/2015 Obesity, unspecified 04/20/2007 04/09/2015 documented as of this encounter (statuses as of 12/21/2021) [facility] Narrative* Problem [...] 05/17/2012 04/09/2015 Overview: Per ER report at [facility] 05/06/12-Naproxen. Skin lesion 01/19/2012 04/09/2015 Porokeratosis 06/04/2011 04/09/2015 Supervision of normal first 05/25/2011 05/25/2011 Supervision of other high-risk (V23.89) 05/25/2011 12/20/2012 Papanicolaou smear of cervix with atypical squamous cells of undetermined significance (ASC-US) 08/14/2008 04/09/2015 Cervical high risk human pap illomavirus (HPV) DNA test positive 08/14/2008 04/09/2015 Obesity, unspecified 04/20/2007 04/09/2015 documented as of this encounter (statuses as of 12/23/2021) [facility] Narrative* Problem [...] 05/17/2012 04/09/2015 Overview: Per ER report at [facility] 05/06/12-Naproxen. Skin lesion 01/19/2012 04/09/2015 Porokeratosis 06/04/2011 04/09/2015 Supervision of normal first 05/25/2011 05/25/2011 Supervision of other high-risk (V23.89) 05/25/2011 12/20/2012 Papanicolaou smear of cervix with atypical squamous cells of undetermined significance (ASC-US) 08/14/2008 04/09/2015 Cervical high risk human pap illomavirus (HPV) DNA test positive 08/14/2008 04/09/2015 Obesity, unspecified 04/20/2007 04/09/2015 documented as of this encounter (statuses as of 12/29/2021) [facility] Narrative* Problem [...] 05/17/2012 04/09/2015 Overview: Per ER report at [facility] 05/06/12-Naproxen. Skin lesion 01/19/2012 04/09/2015 Porokeratosis 06/04/2011 04/09/2015 Supervision of normal first 05/25/2011 05/25/2011 Supervision of other high-risk (V23.89) 05/25/2011 12/20/2012 Papanicolaou smear of cervix with atypical squamous cells of undetermined significance (ASC-US) 08/14/2008 04/09/2015 Cervical high risk human pap illomavirus (HPV) DNA test positive 08/14/2008 04/09/2015 Obesity, unspecified 04/20/2007 04/09/2015 documented as of this encounter (statuses as of 01/05/2022) [facility] Narrative* Problem [...] 05/17/2012 04/09/2015 Overview: Per ER report at [facility] 05/06/12-Naproxen. Skin lesion 01/19/2012 04/09/2015 Porokeratosis 06/04/2011 04/09/2015 Supervision of normal first 05/25/2011 05/25/2011 Supervision of other high-risk (V23.89) 05/25/2011 12/20/2012 Papanicolaou smear of cervix with atypical squamous cells of undetermined significance (ASC-US) 08/14/2008 04/09/2015 Cervical high risk human pap illomavirus (HPV) DNA test positive 08/14/2008 04/09/2015 Obesity, unspecified 04/20/2007 04/09/2015 documented as of this encounter (statuses as of 01/05/2022) [facility] Narrative* Problem [...] 05/17/2012 04/09/2015 Overview: Per ER report at [facility] 05/06/12-Naproxen. Skin lesion 01/19/2012 04/09/2015 Porokeratosis 06/04/2011 04/09/2015 Supervision of normal first 05/25/2011 05/25/2011 Supervision of other high-risk (V23.89) 05/25/2011 12/20/2012 Papanicolaou smear of cervix with atypical squamous cells of undetermined significance (ASC-US) 08/14/2008 04/09/2015 Cervical high risk human pap illomavirus (HPV) DNA test positive 08/14/2008 04/09/2015 Obesity, unspecified 04/20/2007 04/09/2015 documented as of this encounter (statuses as of 01/11/2022) [facility]arrative* Problem [...] 05/17/2012 04/09/2015 Overview: Per ER report at [facility] 05/06/12-Naproxen. Skin lesion 01/19/2012 04/09/2015 Porokeratosis 06/04/2011 04/09/2015 Supervision of normal first 05/25/2011 05/25/2011 Supervision of other high-risk (V23.89) 05/25/2011 12/20/2012 Papanicolaou smear of cervix with atypical squamous cells of undetermined significance (ASC-US) 08/14/2008 04/09/2015 Cervical high risk human pap illomavirus (HPV) DNA test positive 08/14/2008 04/09/2015 Obesity, unspecified 04/20/2007 04/09/2015 documented as of this encounter (statuses as of 01/15/2022) [facility] Narrative* Problem [...] 05/17/2012 04/09/2015 Overview: Per ER report at [facility] 05/06/12-Naproxen. Skin lesion 01/19/2012 04/09/2015 Porokeratosis 06/04/2011 04/09/2015 Supervision of normal first 05/25/2011 05/25/2011 Supervision of other high-risk (V23.89) 05/25/2011 12/20/2012 Papanicolaou smear of cervix with atypical squamous cells of undetermined significance (ASC-US) 08/14/2008 04/09/2015 Cervical high risk human pap illomavirus (HPV) DNA test positive 08/14/2008 04/09/2015 Obesity, unspecified 04/20/2007 04/09/2015 documented as of this encounter (statuses as of 02/13/2022) [facility]arrative* Problem [...] 05/17/2012 04/09/2015 Overview: Per ER report at [facility] 05/06/12-Naproxen. Skin lesion 01/19/2012 04/09/2015 Porokeratosis 06/04/2011 04/09/2015 Supervision of normal first 05/25/2011 05/25/2011 Supervision of other high-risk (V23.89) 05/25/2011 12/20/2012 Papanicolaou smear of cervix with atypical squamous cells of undetermined significance (ASC-US) 08/14/2008 04/09/2015 Cervical high risk human pap illomavirus (HPV) DNA test positive 08/14/2008 04/09/2015 Obesity, unspecified 04/20/2007 04/09/2015 documented as of this encounter (statuses as of 03/10/2022) [facility] Narrative* Problem [...] 05/17/2012 04/09/2015 Overview: Per ER report at [facility] 05/06/12-Naproxen. Skin lesion 01/19/2012 04/09/2015 Porokeratosis 06/04/2011 04/09/2015 Supervision of normal first 05/25/2011 05/25/2011 Supervision of other high-risk (V23.89) 05/25/2011 12/20/2012 Papanicolaou smear of cervix with atypical squamous cells of undetermined significance (ASC-US) 08/14/2008 04/09/2015 Cervical high risk human pap illomavirus (HPV) DNA test positive 08/14/2008 04/09/2015 Obesity, unspecified 04/20/2007 04/09/2015 documented as of this encounter (statuses as of 03/11/2022) [facility] Narrative* Problem [...] 05/17/2012 04/09/2015 Overview: Per ER report at [facility] 05/06/12-Naproxen. Skin lesion 01/19/2012 04/09/2015 Porokeratosis 06/04/2011 04/09/2015 Supervision of normal first 05/25/2011 05/25/2011 Supervision of other high-risk (V23.89) 05/25/2011 12/20/2012 Papanicolaou smear of cervix with atypical squamous cells of undetermined significance (ASC-US) 08/14/2008 04/09/2015 Cervical high risk human pap illomavirus (HPV) DNA test positive 08/14/2008 04/09/2015 Obesity, unspecified 04/20/2007 04/09/2015 documented as of this encounter (statuses as of 03/12/2022) [facility]arrative* Problem [...] 05/17/2012 04/09/2015 Overview: Per ER report at [facility] 05/06/12-Naproxen. Skin lesion 01/19/2012 04/09/2015 Porokeratosis 06/04/2011 04/09/2015 Supervision of normal first 05/25/2011 05/25/2011 Supervision of other high-risk (V23.89) 05/25/2011 12/20/2012 Papanicolaou smear of cervix with atypical squamous cells of undetermined significance (ASC-US) 08/14/2008 04/09/2015 Cervical high risk human pap illomavirus (HPV) DNA test positive 08/14/2008 04/09/2015 Obesity, unspecified 04/20/2007 04/09/2015 documented as of this encounter (statuses as of 03/16/2022) [facility]ative* Problem [...] 05/17/2012 04/09/2015 Overview: Per ER report at [facility] 05/06/12-Naproxen. Skin lesion 01/19/2012 04/09/2015 Porokeratosis 06/04/2011 04/09/2015 Supervision of normal first 05/25/2011 05/25/2011 Supervision of other high-risk (V23.89) 05/25/2011 12/20/2012 Papanicolaou smear of cervix with atypical squamous cells of undetermined significance (ASC-US) 08/14/2008 04/09/2015 Cervical high risk human pap illomavirus (HPV) DNA test positive 08/14/2008 04/09/2015 Obesity, unspecified 04/20/2007 04/09/2015 documented as of this encounter (statuses as of 03/30/2022) [facility]* Problem [...] 05/17/2012 04/09/2015 Overview: Per ER report at [facility] 05/06/12-Naproxen. Skin lesion 01/19/2012 04/09/2015 Porokeratosis 06/04/2011 04/09/2015 Supervision of normal first 05/25/2011 05/25/2011 Supervision of other high-risk (V23.89) 05/25/2011 12/20/2012 Papanicolaou smear of cervix with atypical squamous cells of undetermined significance (ASC-US) 08/14/2008 04/09/2015 Cervical high risk human pap illomavirus (HPV) DNA test positive 08/14/2008 04/09/2015 Obesity, unspecified 04/20/2007 04/09/2015 documented as of this encounter (statuses as of 04/05/2022) [facility]* Problem [...] 05/17/2012 04/09/2015 Overview: Per ER report at [facility] 05/06/12-Naproxen. Skin lesion 01/19/2012 04/09/2015 Porokeratosis 06/04/2011 04/09/2015 Supervision of normal first 05/25/2011 05/25/2011 Supervision of other high-risk (V23.89) 05/25/2011 12/20/2012 Papanicolaou smear of cervix with atypical squamous cells of undetermined significance (ASC-US) 08/14/2008 04/09/2015 Cervical high risk human pap illomavirus (HPV) DNA test positive 08/14/2008 04/09/2015 Obesity, unspecified 04/20/2007 04/09/2015 documented as of this encounter (statuses as of 04/12/2022) [facility]* Problem [...] 05/17/2012 04/09/2015 Overview: Per ER report at [facility] 05/06/12-Naproxen. Skin lesion 01/19/2012 04/09/2015 Porokeratosis 06/04/2011 04/09/2015 Supervision of normal first 05/25/2011 05/25/2011 Supervision of other high-risk (V23.89) 05/25/2011 12/20/2012 Papanicolaou smear of cervix with atypical squamous cells of undetermined significance (ASC-US) 08/14/2008 04/09/2015 Cervical high risk human pap illomavirus (HPV) DNA test positive 08/14/2008 04/09/2015 Obesity, unspecified 04/20/2007 04/09/2015 documented as of this encounter (statuses as of 05/14/2022) [facility] History of Past illness Narrative* Problem [...] 05/17/2012 04/09/2015 Overview: Per ER report at [facility] 05/06/12-Naproxen. Skin lesion 01/19/2012 04/09/2015 Porokeratosis 06/04/2011 04/09/2015 Supervision of normal first 05/25/2011 05/25/2011 Supervision of other high-risk (V23.89) 05/25/2011 12/20/2012 Papanicolaou smear of cervix with atypical squamous cells of undetermined significance (ASC-US) 08/14/2008 04/09/2015 Cervical high risk human pap illomavirus (HPV) DNA test positive 08/14/2008 04/09/2015 Obesity, unspecified 04/20/2007 04/09/2015 documented as of this encounter (statuses as of 05/18/2022) [facility] History of Past illness Narrative* Problem [...] 05/17/2012 04/09/2015 Overview: Per ER report at [facility] 05/06/12-Naproxen. Skin lesion 01/19/2012 04/09/2015 Porokeratosis 06/04/2011 04/09/2015 Supervision of normal first 05/25/2011 05/25/2011 Supervision of other high-risk (V23.89) 05/25/2011 12/20/2012 Papanicolaou smear of cervix with atypical squamous cells of undetermined significance (ASC-US) 08/14/2008 04/09/2015 Cervical high risk human pap illomavirus (HPV) DNA test positive 08/14/2008 04/09/2015 Obesity, unspecified 04/20/2007 04/09/2015 documented as of this encounter (statuses as of 06/07/2022) [facility] History of Past illness Narrative* Problem [...] 05/17/2012 04/09/2015 Overview: Per ER report at [facility] 05/06/12-Naproxen. Skin lesion 01/19/2012 04/09/2015 Porokeratosis 06/04/2011 04/09/2015 Supervision of normal first 05/25/2011 05/25/2011 Supervision of other high-risk (V23.89) 05/25/2011 12/20/2012 Papanicolaou smear of cervix with atypical squamous cells of undetermined significance (ASC-US) 08/14/2008 04/09/2015 Cervical high risk human pap illomavirus (HPV) DNA test positive 08/14/2008 04/09/2015 Obesity, unspecified 04/20/2007 04/09/2015 documented as of this encounter (statuses as of 11/08/2022) [facility] History of Past illness Narrative* Problem [...] 05/17/2012 04/09/2015 Overview: Per ER report at [facility] 05/06/12-Naproxen. Skin lesion 01/19/2012 04/09/2015 Porokeratosis 06/04/2011 04/09/2015 Supervision of normal first 05/25/2011 05/25/2011 Supervision of other high-risk (V23.89) 05/25/2011 12/20/2012 Papanicolaou smear of cervix with atypical squamous cells of undetermined significance (ASC-US) 08/14/2008 04/09/2015 Cervical high risk human pap illomavirus (HPV) DNA test positive 08/14/2008 04/09/2015 Obesity, unspecified 04/20/2007 04/09/2015 documented as of this encounter (statuses as of 02/01/2023) [facility] History of Past illness Narrative* Problem [...] 05/17/2012 04/09/2015 Overview: Per ER report at [facility] 05/06/12-Naproxen. Skin lesion 01/19/2012 04/09/2015 Porokeratosis 06/04/2011 04/09/2015 Supervision of normal first 05/25/2011 05/25/2011 Supervision of other high-ri sk (V23.89) 05/25/2011 12/20/2012 Papanicolaou smear of cervix with atypical squamous cells of undetermined significance (ASC-US) 08/14/2008 04/09/2015 Cervical high risk human pap illomavirus (HPV) DNA test positive 08/14/2008 04/09/2015 Obesity, unspecified 04/20/2007 015 documented as of this encounter (statuses as of 03/21/2023) [facility] History of Past illness Narrative* Problem [...] 05/17/2012 04/09/2015 Overview: Per ER report at [facility] 05/06/12-Naproxen. Skin lesion 01/19/2012 04/09/2015 Porokeratosis 06/04/2011 04/09/2015 Supervision of normal first 05/25/2011 05/25/2011 Supervision of other high-ri sk (V23.89) 05/25/2011 12/20/2012 Papanicolaou smear of cervix with atypical squamous cells of undetermined significance (ASC-US) 08/14/2008 04/09/2015 Cervical high risk human pap illomavirus (HPV) DNA test positive 08/14/2008 04/09/2015 Obesity, unspecified 04/20/2007 015 documented as of this encounter (statuses as of 05/12/2023) [facility] History of Past illness Narrative* Problem [...] 05/17/2012 04/09/2015 Overview: Per ER report at [facility] 05/06/12-Naproxen. Skin lesion 01/19/2012 04/09/2015 Porokeratosis 06/04/2011 04/09/2015 Supervision of normal first 05/25/2011 05/25/2011 Supervision of other high-ri sk (V23.89) 05/25/2011 12/20/2012 Papanicolaou smear of cervix with atypical squamous cells of undetermined significance (ASC-US) 08/14/2008 04/09/2015 Cervical high risk human pap illomavirus (HPV) DNA test positive 08/14/2008 04/09/2015 Obesity, unspecified 04/20/2007 015 documented as of this encounter (statuses as of 05/24/2023) [facility] History of Past illness Narrative* Problem [...] 05/17/2012 04/09/2015 Overview: Per ER report at [facility] 05/06/12-Naproxen. Skin lesion 01/19/2012 04/09/2015 Porokeratosis 06/04/2011 04/09/2015 Supervision of normal first 05/25/2011 05/25/2011 Supervision of other high-ri sk (V23.89) 05/25/2011 12/20/2012 Papanicolaou smear of cervix with atypical squamous cells of undetermined significance (ASC-US) 08/14/2008 04/09/2015 Cervical high risk human pap illomavirus (HPV) DNA test positive 08/14/2008 04/09/2015 Obesity, unspecified 04/20/2007 015 documented as of this encounter (statuses as of 05/25/2023) [facility] History of Past illness Narrative* Problem [...] 05/17/2012 04/09/2015 Overview: Per ER report at [facility] 05/06/12-Naproxen. Skin lesion 01/19/2012 04/09/2015 Porokeratosis 06/04/2011 04/09/2015 Supervision of normal first 05/25/2011 05/25/2011 Supervision of other high-ri sk (V23.89) 05/25/2011 12/20/2012 Papanicolaou smear of cervix with atypical squamous cells of undetermined significance (ASC-US) 08/14/2008 04/09/2015 Cervical high risk human pap illomavirus (HPV) DNA test positive 08/14/2008 04/09/2015 Obesity, unspecified 04/20/2007 015 documented as of this encounter (statuses as of 06/28/2023) [facility] History of Past illness Narrative* Problem [...] 05/17/2012 04/09/2015 Overview: Per ER report at [facility] 05/06/12-Naproxen. Skin lesion 01/19/2012 04/09/2015 Porokeratosis 06/04/2011 04/09/2015 Supervision of normal first 05/25/2011 05/25/2011 Supervision of other high-ri sk (V23.89) 05/25/2011 12/20/2012 Papanicolaou smear of cervix with atypical squamous cells of undetermined significance (ASC-US) 08/14/2008 04/09/2015 Cervical high risk human pap illomavirus (HPV) DNA test positive 08/14/2008 04/09/2015 Obesity, unspecified 04/20/2007 015 documented as of this encounter (statuses as of 12/15/2023) [facility] History of Past illness Narrative* Problem [...] 05/17/2012 04/09/2015 Overview: Per ER report at [facility] 05/06/12-Naproxen. Skin lesion 01/19/2012 04/09/2015 Porokeratosis 06/04/2011 04/09/2015 Supervision of normal first 05/25/2011 05/25/2011 Supervision of other high-ri sk (V23.89) 05/25/2011 12/20/2012 Papanicolaou smear of cervix with atypical squamous cells of undetermined significance (ASC-US) 08/14/2008 04/09/2015 Cervical high risk human pap illomavirus (HPV) DNA test positive 08/14/2008 04/09/2015 Obesity, unspecified 04/20/2007 015 documented as of this encounter (statuses as of 12/20/2023) [facility] Annual physical exam- Primary [...] thyroid Goiter, unspecified [facility] Enlarged thyroid Goiter, unspecified [facility] Diagnosis Hyperglycemia- Primary Other abnormal glucose [facility]* Diagnosis Breast pain, left- Primary Mastodynia Subareolar mass of left breast [facility]* Diagnosis Abscess of breast, left- Primary Inflammatory disease of breast [facility]* Diagnosis Cellulitis of left breast- Primary [facility] noteNo assessment information availableWGood Samar[facility] Work Phone: Evaluation note* Diagnosis Breast abscess- Primary Inflammatory disease of breast Hyperglycemia Other abnormal glucose [facility] Diagnosis Breast abscess- Primary Inflammatory disease of breast Left breast abscess Inflammatory disease of breast [facility] Breast pain, left- Primary Mastodynia Breast abscess Inflammatory disease of breast [facility] Diagnosis Breast abscess- Primary Inflammatory disease of breast [facility] Diagnosis Breast abscess- Primary Inflammatory disease of breast [facility] Diagnosis Periductal mastitis of left breast- Primary Breast abscess Inflammatory disease of breast Abscess of breast Inflammatory disease of breast [facility] Diagnosis Postoperative pain- Primary Other acute postoperative pain [facility] Diagnosis Postoperative pain- Primary Other acute postoperative pain Abscess of breast Inflammatory disease of breast [facility] Diagnosis Status post incision and drainage- Primary Postoperative pain Other acute postoperative pain [facility] this [facility] Diagnosis Status post incision and drainage- Primary Open wound of left breast, subsequent encounter [facility] Diagnosis Status post incision and drainage- Primary Open wound Open wound(s) (multiple) of unspecified site(s), without mention of complication [facility] this [facility] Diagnosis Encounter for screening mammogram for breast cancer [facility] Diagnosis Mild intermittent asthma without complication Unspecified asthma [facility] Diagnosis Onset Date Resolution Status Delayed wound healing acute Left breast abscess acute Delayed wound healing acute Delayed wound healing acute Delayed wound healing acute Delayed wound healing acute [facility] Work Phone: Evaluation note* Diagnosis Onset Date Resolution Status Delayed wound healing acute Left breast abscess acute Delayed wound healing acute Delayed wound healing acute Delayed wound healing acute Delayed wound healing acute Encounter for routine gynecological examination noneactive [facility] Work Phone: Evaluation note* Diagnosis Mild intermittent asthma without complication Unspecified asthma History of seizures Personal history of other disorders of nervous system and sense organs Gastroesophageal reflux disease with esophagitis without hemorrhage [facility] this [facility] Diagnosis Encounter for screening mammogram for breast cancer [facility] Diagnosis Mild intermittent asthma without complication Unspecified asthma [facility] this [facility] Diagnosis Annual physical exam- Primary Routine [...] unspecified whether recurrent [facility] Diagnosis Mild intermittent asthma without complication Unspecified asthma [facility] Diagnosis Mixed hyperlipidemia History of seizures Personal history of other disorders of nervous system and sense organs [facility] this [facility] Diagnosis Mild intermittent asthma without complication Unspecified asthma [facility] Diagnosis Sinusitis, unspecified chronicity, unspecified location- Primary [facility] this [facility] Diagnosis Encounter for screening mammogram for breast cancer [facility] Diagnosis Onychomadesis of toenail- Primary Other specified disease of nail [facility] this [facility] Diagnosis Pre-operative clearance- Primary Preoperative examination, unspecified Neoplasm, brain (HCC) Neoplasm of unspecified nature of brain Rhinosinusitis- Primary Unspecified sinusitis (chronic) [facility] this [facility] Diagnosis Pre-operative clearance- Primary Preoperative examination, unspecified Neoplasm, brain (HCC) Neoplasm of unspecified nature of brain Mild intermittent asthma without complication Unspecified asthma [facility] this [facility] Diagnosis Pre-operative clearance- Primary Preoperative [...] chronic breast infections. [facility] this [facility] Diagnosis Pre-operative clearance- Primary Preoperative examination, unspecified Neoplasm, brain (HCC) Neoplasm of unspecified nature of brain Mass of upper inner quadrant of left breast- Primary At high risk for breast cancer Acute cough- Primary Head congestion Other diseases of nasal cavity and sinuses [facility] this [facility] Diagnosis Pre-operative clearance- Primary Preoperative [...] disease of breast [facility] this [facility] Diagnosis Pre-operative clearance- Primary Preoperative [...] for breast cancer [facility] this [facility] Diagnosis Pre-operative clearance- Primary Preoperative [...] acute postoperative pain [facility] Pre-operative clearance- Primary Preoperative examination, [...] acute postoperative pain [facility] this [facility] Diagnosis Pre-operative clearance- Primary Preoperative [...] of unspecified site [facility] Diagnosis Pre-operative clearance- Primary Preoperative [...] chronic breast infections. [facility] this [facility] Diagnosis Pre-operative clearance- Primary Preoperative [...] of left breast [facility]* Diagnosis Pre-operative clearance- Primary Preoperative examination, unspecified Neoplasm, brain (HCC) Neoplasm of unspecified nature of brain Mass of upper inner quadrant of left breast- Primary At high risk for breast cancer Mass of upper inner quadrant of left breast- Primary Breast abscess Inflammatory disease of breast At high risk for breast cancer Annual physical exam- Primary Routine general medical examination at a health care facility Mixed hyperlipidemia Gastroesophageal reflux disease with esophagitis without hemorrhage Medication management Encounter for long-term (current) use of other medications Screening for diabetes mellitus Encounter for screening examination for other mental health and behavioral disorders Recurrent major depressive disorder, remission status unspecified Mild intermittent asthma without complication (HCC) Unspecified asthma [facility] Work Phone: Hospital Discharge instructions Additional Instructions Do not drive or operate heavy machinery while taking muscle relaxers. Muscle relaxers can make you confused, lightheaded, and fatigued. They can increase falls. Follow-up with your PCP. Return back to the ED if symptoms change or worsen.[facility] Work Phone: Reason for referral (narrative)* Diagnostic Procedure Only (Routine) - Authorized Specialty Diagnoses / Procedures Referred By Contac t Referred To Contact US IMAGING Diagnoses Enlarged thyroid Procedures US THYROID/PARATHYROID US SOFT TISSUE HEAD & NECK REAL TIME IMGE Ekta De La Garza MD [address] [place] [address] Us Imaging Referral ID Status Reason Start Date Expiration Date Visits Requested Visits Authorized [id number] Authorized Auto-Generat ed Referral 11/27/2021 12/27/2022 1 1 * Medication Prior Authorization - Closed Specialty Diagnoses / Procedures [facility] To Contact Diagnoses Mild intermittent asthma without complication Ekta Ley MD [address] [place] [address] Referral ID Status Reason Start Date Expiration Date Visits Re quested Visits Authorized [id number] Closed 1 1 [facility] for referral (narrative)* Diagnostic Procedure Only (Routine) - Closed Specialty Diagnoses / Procedures [facility] Referred To Contact [facility] IMAG[facility] Diagnoses Enlarged thyroid Procedures US THYROID/PARATHYROID US SOFT TISSUE HEAD & NECK REAL TIME IMGE Ekta De La Garza MD [address] [place] [address] Us Imaging Referral ID Status Reason Start Date Expiration Date V isits Requested Visits Authorized [id number] Closed Auto-Generate d Referral 11/27/2021 12/27/2022 1 1 [facility] for referral (narrative)* Diagnostic Procedure Only (Routine) - Pending Review Specialty Diagnoses / Procedures [facility] Ref[facility] To Contact [facility] Diagnoses Breast pain, left Procedures US BREAST LTD LT US BREAST UNI REAL TIME WITH IMAGE LIMITED Lina Kenny APRN.CNM [address] [place] [address] [facility] [address] [place] [address] Referral ID Status Reason Start Date Expiration Date Visits Requested Visits Authorized [id number] Pending Review Auto-Generat ed Referral 12/23/2021 01/15/2023 1 1 * Diagnostic Procedure Only (Routine) - Authorized Specialty Diagnoses / Procedures [facility] To [facility] Diagnoses Breast pain, left Procedures SARAH DIAGNOSTIC BILAT DIAGNOSTIC MAMMOGRAPHY COMPUTER-AIDED DETCJ Lina Kenny APRN.CNM [address] [place] [address] [facility] [address] [place] [address] Referral ID Status Reason Start Date Expiration Date Visits Requested Visits Authorized [id number] Authorized Auto-Generat ed Referral 12/16/2021 01/15/2023 1 1 [facility] for referral (narrative)* Diagnostic Procedure Only (Routine) - Pending Review Specialty Diagnoses / Procedures Referred By Contac t Referred To Contact [facility] IMAGING Diagnoses Encounter for screening mammogram for breast cancer Procedures [facility] SCREENING SCREENING MAMMOGRAPHY BI 2-VIEW BREAST INC Ekta Damico MD [address] [place] [address] [facility] [address] [place] [address] Referral ID Status Reason Start Date Expiration Date Visits Requested Visits Authorized [id number] Pending Review Auto-Generat ed Referral 04/07/2022 05/07/2023 1 1 T [facility] for referral (narrative)* Diagnostic Procedure Only (Routine) - Pending Review Specialty Diagnoses / Procedures Referred By Contac t Referred To Contact [facility] IM[facility]ING Diagnoses Encounter for screening mammogram for breast cancer Procedures [facility] SCREENING SCREENING MAMMOGRAPHY BI 2-VIEW BREAST INC Ekta Damico MD [facility] [place] [address] [facility] [address] [place] [address] Referral ID Status Reason Start Date Expiration Date Visits Requested Visits Authorized [id number] Pending Review Auto-Generat ed Referral 03/16/2023 04/14/2024 1 1 T [facility] for referral (narrative)* Diagnostic Procedure Only (Routine) - Pending Review Specialty Diagnoses / Procedures Referred By Manju ojeda Referred To Contact [facility] IM[facility] Diagnoses Encounter for screening mammogram for breast cancer Procedures SARAH SCREENING W LUIS ALFREDO SCREENING DIGITAL BREAST TOMOSYNTHESIS BI SCREENING MAMMOGRAPHY BI 2-VIEW BREAST INC CAD Ekta Ley MD [address] [place] [address] [facility] [address] [place] [address] Referral ID Status Reason Start Date Expiration Date Visits Requested Visits Authorized [id number] Pending Review Auto-Generat ed Referral 02/22/2024 03/23/2025 1 1 [facility] for referral (narrative)No reason for referral information availableWGood Samaritan Hospital Work Phone: Reason for visit Narrative* Auth/Cert Specialty Diagnoses / Procedures Referred By Manju ojeda Referred To Contact Diagnoses Abscess of breast Procedures INCISION & DRAINAGE ABSCESS SIMPLE/SINGLE ABSCESS I&D SIMPLE [facility] [address] [place] [address] Referral ID Status Reason Start Date Expiration Date Visits Re quested Visits Authorized [id number] 1 1 [facility] for visit Narrative* Diagnostic Procedure Only (Routine) - Closed Specialty Diagnoses / Procedures Referred By Manju ojeda Referred To Contact [facility] Diagnoses Mass of upper inner quadrant of left breast Procedures US BREAST LTD LEFT US BREAST UNI REAL TIME WITH IMAGE LIMITED Betsy Jalloh MD [address] [place] [address] Phone: tel: fax: [facility] [address] [place] [address] Referral ID Status Reason Start Date Expiration Date V isits Requested Visits Authorized [id number] Closed Auto-Generate d Referral 11/06/2024 12/06/[address] 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 Advance Directive(s) 02/02/2011 10:55 AM Advance Directive Response Recorded Date/ Time Advance Directives No September 09, 2016 3:58pm Living Will No December 18, 2021 7:10pm Power of Kiln Placer No December 18 7:10pm Documents on File Type Date Recorded 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 Advance Directive(s) 12/30/2021 12:51 PM Advance Directive(s) 02/02/2011 10:55 AM Advance Directive Response Recorded Date/ Time Advance Directives No September 09, 2016 3:58pm Living Will No March 07, 2022 3 :51pm Power of Kiln Placer No March 07, 2022 3:51pm Documents on File Type Date Recorded 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 Advance Directive(s) 03/11/2022 11:21 AM Advance Directive(s) 12/30/2021 12:51 PM Advance Directive(s) 02/02/2011 10:55 AM Documents on File Type Date Recorded 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 Advance Directive(s) 03/11/2022 11:21 AM Advance Directive(s) 12/30/2021 12:51 PM Advance Directive(s) 02/02/2011 10:55 AM Advance Directive Response Recorded Date/ Time Advance Directives No September 09, 2016 2:58pm Living Will No March 07, 2022 2 :51pm Power of Kiln Placer No March 07, 2022 2:51pm Advance Directive Response Recorded Date/ Time Advance Directives No September 09, 2016 3:58pm Living Will No June 12 3:31pm Power of Kiln Placer No June 12 2 023 3:31pm Advance Directive Response Recorded Date/ Time Advance Directives No August 06, 2024 9:15am Living Will No November 29, 2024 12:22pm Do you have a Healthcare Power of Kiln Placer? No November 29, 2024 12:22pm Advance Directive Response Recorded Date/ Time Do you have a Healthcare Power of Kiln Placer? No April 14, 2025 12:56pm Advance Directives No August 06, 2024 9:15am Reason for Referral Specialty Diagnoses / Procedures Referred By Contac t Referred To Contact General Surgery Diagnoses Abscess of breast, left Procedures CONSULT TO GENERAL SURGERY OFFICE/OUTPATIENT NEW HIGH MDM 60-74 MINUTES Yani Puente, ROPEWALK ROPE MAKER.MECHANICAL DEVELOPMENT ENGINEER [address] [place] [address] Referral ID Status Reason Start Date Expiration Date Visits Requested Visits Authorized [id number] Authorized PCP Requested Referral 12/17/2021 12/17/2022 1 1 Specialty Diagnoses / Procedures Referred By Contac t Referred To Contact Diagnoses Mild intermittent asthma without complication Demetrice Doyle, ROPEWALK ROPE MAKER.MECHANICAL DEVELOPMENT ENGINEER [address] [place] [address] Referral ID Status Reason Start Date Expiration Date Visits Re quested Visits Authorized [id number] Closed 1 1 Specialty Diagnoses / Procedures Referred By Contac t Referred To Contact Diagnoses Mild intermittent asthma without complication Edgard Gómez, ROPEWALK ROPE MAKER.MECHANICAL DEVELOPMENT ENGINEER [address] [place] [address] Referral ID Status Reason Start Date Expiration Date Visits Re quested Visits Authorized [id number] Closed 1 1 Chief Complaint and Reason [...] BREAST/WOUND CHECK BREAST SWELLING, ABCESS LEAKAGE Annual (STORE COORDINATOR) Reason for Visit Delayed wound healin g [...] breast abscess September 11, 2024 2: 42pm Chief Complaint Admit Date back April 14, 2025 12 :41pm Medications Administered Section Inactive Administered Medications - [...] Starting on Lizette 03/11/22 at 1130, Until Tue03/11/22 at 1129, Preprocedure New Bag/Syringe/Bottle 03/11/2022 11:58 AM EDT 30 mL/hr 30 mL/hr Additional Source Comments INFORMATION SOURCE (unrecogn ized section and content) DATE CREATED AUTHOR 02/28/2018 [facility] DATE CREATED AUTHOR AUTHOR'S ORGANIZ ATION 01/05/2022 [facility] DATE CREATED AUTHOR AUTHOR'S ORGANIZ ATION 11/03/2023 [facility] ([place] DATE CREATED AUTHOR AUTHOR'S ORGANIZ ATION 04/15/2025 [facility] DATE CREATED AUTHOR AUTHOR'S ORGANIZ ATION 05/25/2025 [facility] DATE CREATED AUTHOR AUTHOR'S ORGANIZ ATION 05/30/2025 [facility] Source Comments (unrecognize d section and content) In the event this informatio n is protected by the Federal Confidentiality of Alcohol and Drug Abuse Patient Records regulations: The Federal rules restrict any use of the information to criminally investigate or prosecute any alcohol or drug abuse patient.[facility] the event this information is protected by the Federal Confidentiality of Alcohol and Drug Abuse Patient Records regulations: The Federal rules restrict any use of the information to criminally investigate or prosecute any alcohol or drug abuse patient.[facility] Hospital[facility] the event this information is protected by the Federal Confidentiality of Alcohol and Drug Abuse Patient Records regulations: The Federal rules restrict any use of the information to criminally investigate or prosecute any alcohol or drug abuse patient.[facility] HospitalIn the event this information is protected by the Federal Confidentiality of Alcohol and Drug Abuse Patient Records regulations: The Federal rules restrict any use of the information to criminally investigate or prosecute any alcohol or drug abuse patient.[facility] HospitalIn the event this information is protected by the Federal Confidentiality of Alcohol and Drug Abuse Patient Records regulations: The Federal rules restrict any use of the information to criminally investigate or prosecute any alcohol or drug abuse patient.[facility] HospitalIn the event this information is protected by the Federal Confidentiality of Alcohol and Drug Abuse Patient Records regulations: The Federal rules restrict any use of the information to criminally investigate or prosecute any alcohol or drug abuse patient.[facility] Hospital[facility] the event this information is protected by the Federal Confidentiality of Alcohol and Drug Abuse Patient Records regulations: The Federal rules restrict any use of the information to criminally investigate or prosecute any alcohol or drug abuse patient.[facility] HospitalIn the event this information is protected by the Federal Confidentiality of Alcohol and Drug Abuse Patient Records regulations: The Federal rules restrict any use of the information to criminally investigate or prosecute any alcohol or drug abuse patient.[facility] HospitalIn the event this information is protected by the Federal Confidentiality of Alcohol and Drug Abuse Patient Records regulations: The Federal rules restrict any use of the information to criminally investigate or prosecute any alcohol or drug abuse patient.[facility] HospitalIn the event this information is protected by the Federal Confidentiality of Alcohol and Drug Abuse Patient Records regulations: The Federal rules restrict any use of the information to criminally investigate or prosecute any alcohol or drug abuse patient.[facility] HospitalIn the event this information is protected by the Federal Confidentiality of Alcohol and Drug Abuse Patient Records regulations: The Federal rules restrict any use of the information to criminally investigate or prosecute any alcohol or drug abuse patient.[facility] HospitalIn the event this information is protected by the Federal Confidentiality of Alcohol and Drug Abuse Patient Records regulations: The Federal rules restrict any use of the information to criminally investigate or prosecute any alcohol or drug abuse patient.[facility] HospitalIn the event this information is protected by the Federal Confidentiality of Alcohol and Drug Abuse Patient Records regulations: The Federal rules restrict any use of the information to criminally investigate or prosecute any alcohol or drug abuse patient.[facility] HospitalIn the event this information is protected by the Federal Confidentiality of Alcohol and Drug Abuse Patient Records regulations: The Federal rules restrict any use of the information to criminally investigate or prosecute any alcohol or drug abuse patient.[facility] HospitalIn the event this information is protected by the Federal Confidentiality of Alcohol and Drug Abuse Patient Records regulations: The Federal rules restrict any use of the information to criminally investigate or prosecute any alcohol or drug abuse patient.[facility] HospitalIn the event this information is protected by the Federal Confidentiality of Alcohol and Drug Abuse Patient Records regulations: The Federal rules restrict any use of the information to criminally investigate or prosecute any alcohol or drug abuse patient.[facility] HospitalIn the event this information is protected by the Federal Confidentiality of Alcohol and Drug Abuse Patient Records regulations: The Federal rules restrict any use of the information to criminally investigate or prosecute any alcohol or drug abuse patient.[facility] HospitalIn the event this information is protected by the Federal Confidentiality of Alcohol and Drug Abuse Patient Records regulations: The Federal rules restrict any use of the information to criminally investigate or prosecute any alcohol or drug abuse patient.[facility] HospitalIn the event this information is protected by the Federal Confidentiality of Alcohol and Drug Abuse Patient Records regulations: The Federal rules restrict any use of the information to criminally investigate or prosecute any alcohol or drug abuse patient.[facility] HospitalIn the event this information is protected by the Federal Confidentiality of Alcohol and Drug Abuse Patient Records regulations: The Federal rules restrict any use of the information to criminally investigate or prosecute any alcohol or drug abuse patient.[facility] HospitalIn the event this information is protected by the Federal Confidentiality of Alcohol and Drug Abuse Patient Records regulations: The Federal rules restrict any use of the information to criminally investigate or prosecute any alcohol or drug abuse patient.[facility] HospitalIn the event this information is protected by the Federal Confidentiality of Alcohol and Drug Abuse Patient Records regulations: The Federal rules restrict any use of the information to criminally investigate or prosecute any alcohol or drug abuse patient.[facility] HospitalIn the event this information is protected by the Federal Confidentiality of Alcohol and Drug Abuse Patient Records regulations: The Federal rules restrict any use of the information to criminally investigate or prosecute any alcohol or drug abuse patient.[facility] ClinicIn the event this information is protected by the Federal Confidentiality of Alcohol and Drug Abuse Patient Records regulations: The Federal rules restrict any use of the information to criminally investigate or prosecute any alcohol or drug abuse patient.[facility] HospitalIn the event this information is protected by the Federal Confidentiality of Alcohol and Drug Abuse Patient Records regulations: The Federal rules restrict any use of the information to criminally investigate or prosecute any alcohol or drug abuse patient.[facility] HospitalIn the event this information is protected by the Federal Confidentiality of Alcohol and Drug Abuse Patient Records regulations: The Federal rules restrict any use of the information to criminally investigate or prosecute any alcohol or drug abuse patient.[facility] HospitalIn the event this information is protected by the Federal Confidentiality of Alcohol and Drug Abuse Patient Records regulations: The Federal rules restrict any use of the information to criminally investigate or prosecute any alcohol or drug abuse patient.[facility] HospitalIn the event this information is protected by the Federal Confidentiality of Alcohol and Drug Abuse Patient Records regulations: The Federal rules restrict any use of the information to criminally investigate or prosecute any alcohol or drug abuse patient.[facility] HospitalIn the event this information is protected by the Federal Confidentiality of Alcohol and Drug Abuse Patient Records regulations: The Federal rules restrict any use of the information to criminally investigate or prosecute any alcohol or drug abuse patient.[facility] HospitalIn the event this information is protected by the Federal Confidentiality of Alcohol and Drug Abuse Patient Records regulations: The Federal rules restrict any use of the information to criminally investigate or prosecute any alcohol or drug abuse patient.[facility] HospitalIn the event this information is protected by the Federal Confidentiality of Alcohol and Drug Abuse Patient Records regulations: The Federal rules restrict any use of the information to criminally investigate or prosecute any alcohol or drug abuse patient.[facility] HospitalIn the event this information is protected by the Federal Confidentiality of Alcohol and Drug Abuse Patient Records regulations: The Federal rules restrict any use of the information to criminally investigate or prosecute any alcohol or drug abuse patient.[facility] HospitalIn the event this information is protected by the Federal Confidentiality of Alcohol and Drug Abuse Patient Records regulations: The Federal rules restrict any use of the information to criminally investigate or prosecute any alcohol or drug abuse patient.[facility] HospitalIn the event this information is protected by the Federal Confidentiality of Alcohol and Drug Abuse Patient Records regulations: The Federal rules restrict any use of the information to criminally investigate or prosecute any alcohol or drug abuse patient.[facility] HospitalIn the event this information is protected by the Federal Confidentiality of Alcohol and Drug Abuse Patient Records regulations: The Federal rules restrict any use of the information to criminally investigate or prosecute any alcohol or drug abuse patient.[facility] HospitalIn the event this information is protected by the Federal Confidentiality of Alcohol and Drug Abuse Patient Records regulations: The Federal rules restrict any use of the information to criminally investigate or prosecute any alcohol or drug abuse patient.[facility] HospitalIn the event this information is protected by the Federal Confidentiality of Alcohol and Drug Abuse Patient Records regulations: The Federal rules restrict any use of the information to criminally investigate or prosecute any alcohol or drug abuse patient.[facility] HospitalIn the event this information is protected by the Federal Confidentiality of Alcohol and Drug Abuse Patient Records regulations: The Federal rules restrict any use of the information to criminally investigate or prosecute any alcohol or drug abuse patient.[facility] HospitalIn the event this information is protected by the Federal Confidentiality of Alcohol and Drug Abuse Patient Records regulations: The Federal rules restrict any use of the information to criminally investigate or prosecute any alcohol or drug abuse patient.[facility] HospitalIn the event this information is protected by the Federal Confidentiality of Alcohol and Drug Abuse Patient Records regulations: The Federal rules restrict any use of the information to criminally investigate or prosecute any alcohol or drug abuse patient.[facility] HospitalIn the event this information is protected by the Federal Confidentiality of Alcohol and Drug Abuse Patient Records regulations: The Federal rules restrict any use of the information to criminally investigate or prosecute any alcohol or drug abuse patient.[facility] HospitalIn the event this information is protected by the Federal Confidentiality of Alcohol and Drug Abuse Patient Records regulations: The Federal rules restrict any use of the information to criminally investigate or prosecute any alcohol or drug abuse patient.[facility] HospitalIn the event this information is protected by the Federal Confidentiality of Alcohol and Drug Abuse Patient Records regulations: The Federal rules restrict any use of the information to criminally investigate or prosecute any alcohol or drug abuse patient.[facility] HospitalIn the event this information is protected by the Federal Confidentiality of Alcohol and Drug Abuse Patient Records regulations: The Federal rules restrict any use of the information to criminally investigate or prosecute any alcohol or drug abuse patient.[facility] HospitalIn the event this information is protected by the Federal Confidentiality of Alcohol and Drug Abuse Patient Records regulations: The Federal rules restrict any use of the information to criminally investigate or prosecute any alcohol or drug abuse patient.[facility] HospitalIn the event this information is protected by the Federal Confidentiality of Alcohol and Drug Abuse Patient Records regulations: The Federal rules restrict any use of the information to criminally investigate or prosecute any alcohol or drug abuse patient.[facility] HospitalIn the event this information is protected by the Federal Confidentiality of Alcohol and Drug Abuse Patient Records regulations: The Federal rules restrict any use of the information to criminally investigate or prosecute any alcohol or drug abuse patient.[facility] HospitalIn the event this information is protected by the Federal Confidentiality of Alcohol and Drug Abuse Patient Records regulations: The Federal rules restrict any use of the information to criminally investigate or prosecute any alcohol or drug abuse patient.[facility] HospitalIn the event this information is protected by the Federal Confidentiality of Alcohol and Drug Abuse Patient Records regulations: The Federal rules restrict any use of the information to criminally investigate or prosecute any alcohol or drug abuse patient.[facility] HospitalIn the event this information is protected by the Federal Confidentiality of Alcohol and Drug Abuse Patient Records regulations: The Federal rules restrict any use of the information to criminally investigate or prosecute any alcohol or drug abuse patient.[facility] HospitalIn the event this information is protected by the Federal Confidentiality of Alcohol and Drug Abuse Patient Records regulations: The Federal rules restrict any use of the information to criminally investigate or prosecute any alcohol or drug abuse patient.[facility] HospitalIn the event this information is protected by the Federal Confidentiality of Alcohol and Drug Abuse Patient Records regulations: The Federal rules restrict any use of the information to criminally investigate or prosecute any alcohol or drug abuse patient.[facility] HospitalIn the event this information is protected by the Federal Confidentiality of Alcohol and Drug Abuse Patient Records regulations: The Federal rules restrict any use of the information to criminally investigate or prosecute any alcohol or drug abuse patient.[facility] HospitalIn the event this information is protected by the Federal Confidentiality of Alcohol and Drug Abuse Patient Records regulations: The Federal rules restrict any use of the information to criminally investigate or prosecute any alcohol or drug abuse patient.[facility] HospitalIn the event this information is protected by the Federal Confidentiality of Alcohol and Drug Abuse Patient Records regulations: The Federal rules restrict any use of the information to criminally investigate or prosecute any alcohol or drug abuse patient.[facility] HospitalIn the event this information is protected by the Federal Confidentiality of Alcohol and Drug Abuse Patient Records regulations: The Federal rules restrict any use of the information to criminally investigate or prosecute any alcohol or drug abuse patient.[facility] Reason for Visit (unrecogniz ed section and content) Reason Comments Physical med refills Reason Comments Radiology US Specialty Diagnoses / Procedures Referred By Contac t Referred To Contact US IMAGING Diagnoses Enlarged thyroid Procedures US THYROID/PARATHYROID US SOFT TISSUE HEAD & NECK REAL TIME IMGE Ekta De La Garza MD [address] [place] [address] Us Imaging Referral ID Status Reason Start Date Expiration Date V isits Requested Visits Authorized [id number] Closed Auto-Generate d Referral 11/27/2021 12/27/2022 1 [...] m edical records to be faxed to [facility] Reason Comments Follow Up I&D [...] Care Teams (unrecognized sec tion and content) Applied Computer Science Professor Relationship Specialty Start Date End Date Ekta Ley MD [address] [place], [place] [id number] PCP - General Family Practice 01/04/18 Applied Computer Science Professor Relationship Specialty Start Date End Date Ekta Ley MD [address] [place] [address] PCP - General Family Practice 01/04/18 Applied Computer Science Professor Relationship Specialty Start Date End Date Ekta Ley MD [address] [place], [place] [id number] PCP - General Family Practice 01/04/18 Applied Computer Science Professor Relationship Specialty Start Date End Date Ekta Ley MD [address] [place], [place] [address] PCP - General Family Practice 01/04/18 Applied Computer Science Professor Relationship Specialty Start Date End Date Ekta Ley MD [address] [facility] [place] [address] PCP - General Family Practice 01/04/18 Applied Computer Science Professor Relationship Specialty Start Date End Date Ekta Ley MD [address] [facility] [place] [address] PCP - General Family Practice 01/04/18 Applied Computer Science Professor Relationship Specialty Start Date End Date Ekta Ley MD [address] [facility] [place] [address] PCP - General Family Practice 01/04/18 Applied Computer Science Professor Relationship Specialty Start Date End Date Ekta Ley MD [address] [facility] [place] [address] PCP - General Family Practice 01/04/18 Applied Computer Science Professor Relationship Specialty Start Date End Date Ekta Ley MD [address] [facility] [place] [address] PCP - General Family Practice 01/04/18 Applied Computer Science Professor Relationship Specialty Start Date End Date Ekta Ley MD [address] [facility] [place] [address] PCP - General Family Practice 01/04/18 Applied Computer Science Professor Relationship Specialty Start Date End Date Ekta Ley MD [address] [facility] [place] [address] PCP - General Family Practice 01/04/18 Applied Computer Science Professor Relationship Specialty Start Date End Date Ekta Ley MD [address] [facility] [place] [address] PCP - General Family Practice 01/04/18 Applied Computer Science Professor Relationship Specialty Start Date End Date Ekta Ley MD [address] [place] [address] PCP - General Family Practice 01/04/18 Applied Computer Science Professor Relationship Specialty Start Date End Date Ekta Ley MD [address] [place] [address] PCP - General Family Practice 01/04/18 Applied Computer Science Professor Relationship Specialty Start Date End Date Ekta Ley MD [address] [place] [address] PCP - General Family Practice 01/04/18 Applied Computer Science Professor Relationship Specialty Start Date End Date Ekta Ley MD [address] [place] [address] PCP - General Family Medicine 01/04/18 Applied Computer Science Professor Relationship Specialty Start Date End Date Ekta Ley MD [address] [place] [address] PCP - General Family Medicine 01/04/18 Applied Computer Science Professor Relationship Specialty Start Date End Date Ekta Ley MD [address] [place] [address] PCP - General Family Medicine 01/04/18 Applied Computer Science Professor Relationship Specialty Start Date End Date Ekta Ley MD [address] [place] [address] PCP - General Family Medicine 01/04/18 Applied Computer Science Professor Relationship Specialty Start Date End Date Ekta Ley MD [address] [place] [address] PCP - General Family Medicine 01/04/18 Applied Computer Science Professor Relationship Specialty Start Date End Date Ekta Ley MD [address] [place] [address] PCP - General Family Medicine 01/04/18 Applied Computer Science Professor Relationship Specialty Start Date End Date Ekta Ley MD [address] [place] [address] PCP - General Family Medicine 01/04/18 Team Status: Active Member Role Status Dates No Primary Care Physician Family Provider Active Dr. Adrian Ley MD Primary Care Provider Acti ve Team Status: Inactive Member Role Status Dates Dr. Adrian Ley MD Primary Care Provider Acti ve Dr. Romario Samuel MD Attending Provider, Emergency Pr ovider Active Team Status: Inactive Member Role Status Dates Dr. Adrian Ley MD Primary Care Provider Acti ve Ed Physician Provider Emergency Provider Active Applied Computer Science Professor Relationship Specialty Start Date End Date Ekta Ley MD [address] [place] [address] PCP - General Family Medicine 01/04/18 Applied Computer Science Professor Relationship Specialty Start Date End Date Ekta Ley MD [address] [place] [address] PCP - General Family Medicine 01/04/18 Applied Computer Science Professor Relationship Specialty Start Date End Date Ekta Ley MD [address] [place] [address] PCP - General Family Medicine 01/04/18 Applied Computer Science Professor Relationship Specialty Start Date End Date Ekta Ley MD [address] [place] [address] PCP - General Family Medicine 01/04/18 Applied Computer Science Professor Relationship Specialty Start Date End Date Ekta Ley MD [address] [place] [address] PCP - General Family Medicine 01/04/18 Applied Computer Science Professor Relationship Specialty Start Date End Date Ekta Ley MD [address] [place] [address] PCP - General Family Medicine 01/04/18 Applied Computer Science Professor Relationship Specialty Start Date End Date Ekta Ley MD [address] [place] [address] PCP - General Family Medicine 01/04/18 Podlogar, REZA Suresh.MECHANICAL DEVELOPMENT ENGINEER [address] [place] [address] [facility] 08/11/24 Applied Computer Science Professor Relationship Specialty Start Date End Date Ekta Ley MD [address] [place] [address] PCP - General Family Medicine 01/04/18 Podlogar, Demetrice ROPEWALK ROPE MAKER.MECHANICAL DEVELOPMENT ENGINEER [address] [place] [address] [facility] 08/11/24 Applied Computer Science Professor Relationship Specialty Start Date End Date Ekta Ley MD [address] [place] [address] PCP - General Family Medicine 01/04/18 Podlogar, Demetrice ROPEWALK ROPE MAKER.MECHANICAL DEVELOPMENT ENGINEER [address] [place] [address] [facility] 08/11/24 Edgard Gómez APRN.MECHANICAL DEVELOPMENT ENGINEER [address] [place] [address] [facility] 11/16/24 Applied Computer Science Professor Relationship Specialty Start Date End Date Ekta Ley MD [address] [facility] [place] [address] PCP - General Family Medicine 01/04/18 Podlogar, Demetrice, ROPEWALK ROPE MAKER.MECHANICAL DEVELOPMENT ENGINEER [address] [facility] [place] [address] [facility] 08/11/24 Edgard Gómez ROPEWALK ROPE MAKER.MECHANICAL DEVELOPMENT ENGINEER [address] [place] [address] [facility] 11/16/24 Applied Computer Science Professor Relationship Specialty Start Date End Date Ekta Ley MD [address] [facility] [place] [address] PCP - General Family Medicine 01/04/18 Podlogar, Demetrice, ROPEWALK ROPE MAKER.MECHANICAL DEVELOPMENT ENGINEER [address] [facility] [place] [address] [facility] 08/11/24 Edgard Gómez ROPEWALK ROPE MAKER.MECHANICAL DEVELOPMENT ENGINEER [address] [place] [address] [facility] 11/26/24 Applied Computer Science Professor Relationship Specialty Start Date End Date Ekta Ley MD [address] [facility] [place] [address] PCP - General Family Medicine 01/04/18 Podlogar, Demetrice, ROPEWALK ROPE MAKER.MECHANICAL DEVELOPMENT ENGINEER [address] [facility] [place] [address] [facility] 08/11/24 Edgard Gómez ROPEWALK ROPE MAKER.MECHANICAL DEVELOPMENT ENGINEER [address] [place], [place] [address] [facility] 11/26/24 Applied Computer Science Professor Relationship Specialty Start Date End Date Ekta Ley MD [address] [place], [place] [id number] PCP - General Family Medicine 01/04/18 PodlogarDemetrice ROPEWALK ROPE MAKER.MECHANICAL DEVELOPMENT ENGINEER [address] [place], [place] [address] [facility] 08/11/24 Edgard Gómez, ROPEWALK ROPE MAKER.MECHANICAL DEVELOPMENT ENGINEER [address] [place], [place] [address] [facility] 11/26/24 Team Status: Active Member Role Status [...] 11, 2024 End: September 11, 2024 Dr. dArian Ley MD Referring Provider Active Start: September [...] November 29, 2024 End: November 29, 2024 Applied Computer Science Professor Relationship Specialty Start Date End Date Ekta Ley MD [address] [place], [place] [address] PCP - General Family Medicine 01/04/18 PodmaribelarDemetrice ROPEWALK ROPE MAKER.MECHANICAL DEVELOPMENT ENGINEER [address] [place], [place] [address] [facility] Family Medicine 08/11/24 Edgard Gómez, ROPEWALK ROPE MAKER.MECHANICAL DEVELOPMENT ENGINEER [address] [place], [place] [address] [facility] 11/26/24 Applied Computer Science Professor Relationship Specialty Start Date End Date Ekta Ley MD [address] [place], [place] [id number] PCP - General Family Medicine 01/04/18 Podlogar, Demetrice, ROPEWALK ROPE MAKER.MECHANICAL DEVELOPMENT ENGINEER [address] [place] [address] [facility] 08/11/24 Edgard Gómez ROPEWALK ROPE MAKER.MECHANICAL DEVELOPMENT ENGINEER [address] [place] [address] [facility] 11/26/24 Applied Computer Science Professor Relationship Specialty Start Date End Date Ekta Ley MD [address] [place] [address] PCP - General Family Medicine 01/04/18 Podlogar, Demetrice, ROPEWALK ROPE MAKER.MECHANICAL DEVELOPMENT ENGINEER [address] [place] [address] [facility] 08/11/24 Edgard Gómez ROPEWALK ROPE MAKER.MECHANICAL DEVELOPMENT ENGINEER [address] [place] [address] [facility] 11/26/24 Applied Computer Science Professor Relationship Specialty Start Date End Date Ekta Ley MD [address] [place] [address] PCP - General Family Medicine 01/04/18 Podlogar, Demterice ROPEWALK ROPE MAKER.MECHANICAL DEVELOPMENT ENGINEER [address] [place] [address] [facility] Family Medicine 08/11/24 Edgard Gómez, ROPEWALK ROPE MAKER.MECHANICAL DEVELOPMENT ENGINEER [address] [place] [address] [facility] 11/26/24 Applied Computer Science Professor Relationship Specialty Start Date End Date Ekta Ley MD [address] [facility] [place], [place] [address] PCP - General Family Medicine 01/04/18 PodlogarDemetrice, ROPEWALK ROPE MAKER.MECHANICAL DEVELOPMENT ENGINEER [address] [facility] [place], [place] [address] [facility] 08/11/24 Edgard Gómez, ROPEWALK ROPE MAKER.MECHANICAL DEVELOPMENT ENGINEER [address] [facility] [place], [place] [address] [facility] 11/26/24 Applied Computer Science Professor Relationship Specialty Start Date End Date Ekta Ley MD [address] [facility] [place], [place] [address] PCP - General Family Medicine 01/04/18 PodlogarDemetrice, ROPEWALK ROPE MAKER.MECHANICAL DEVELOPMENT ENGINEER [address] [facility] [place], [place] [address] [facility] 08/11/24 Edgard Gómez, ROPEWALK ROPE MAKER.MECHANICAL DEVELOPMENT ENGINEER [address] [facility] [place], [place] [address] [facility] 11/26/24 Team Status: Active Member Role/Relationship Status Dates Dr. Adrian Ley MD Primary Care Provider Acti ve Team Status: Inactive Member Role/Relationship Status Dates Dr. Adrian Ley MD Primary Care Provider Acti ve Start: April 14, 2025 End: April 14, 2025 Dr. Reilly Fulton , Emergency Provider Active S tart: April 14, 2025 End: April 14, 2025 Applied Computer Science Professor Relationship Specialty Start Date End Date Ekta Ley MD [address] [facility] [place], [place] [address] PCP - General Family Medicine 01/04/18 PodlogarDemetrice APRN.MECHANICAL DEVELOPMENT ENGINEER [address] [place], [place] [address] [facility] 08/11/24 Edgard Gómez APRN.MECHANICAL DEVELOPMENT ENGINEER [address] [place], [place] [id number] [facility] 02/14/25 Goals (unrecognized section and content) Goals may [...] ORAL, EVERY 4 HOURS NEEDED, Starting on Tue03/11/22 at 1516, Until Tue03/12/22 at 0303, Mild Pain (1-3) - Enteral, Moderate Pain (4-6) - Enteral 1552 (Given - Provid er: Lavon Candelaria RN) lidocaine 2%-EPINEPHrine 1:100,000 injection (CANCELED) X (OR/PROCEDURE) PRN, Starting on Tue03/11/22 at 1450, Until Tue03/11/22 at 1507, Intraprocedure 1450 (Given - Provid [...] BE BASED ON THE PRIMARY CLINICAL RECORDS. [employer] provides no warranty or guarantee of the accuracy or completeness of information in this document.
--- NOTE | 2025-06-10 19:06 | EX.ED.DYSGE1 ---
HPI History of Present Illness Chief Complaint: Back Narrative Narrative: Patient is a 45-year-old female with past medical history of GERD, depression, hyperlipidemia, chronic back pain, seizure disorder who presented to the emergency department the chief complaint of back pain. States that she has been dealing with her back issue for quite some time however she notes that today when she woke up she had worsening back pain and states that she took a 5 mg muscle relaxer that really did not help her pain therefore she came here for further evaluation management. States that she has also been taking ibuprofen at home for pain. Patient denies any injuries she states that she has been urinating normal for self. She states that she is having normal bowel movement. Patient denies any history of IV drug use denies any fevers. Patient states that she works every day and notes that she feels like her back pain is flaring up right now. [facility] Medical History Hx LEEP (loop electrosurgical excision procedure), cervix, Hyperlipidemia GERD (gastroesophageal reflux disease) Depression Breast abscess RSD (reflex sympathetic dystrophy) History of sciatica Seizure disorder History of asthma Genital herpes Mental retardation Home Medications ?Medication ?Instructions ?Recorded ?Last Taken ?Type albuterol sulfate 90 mcg/actuation 2 puff inhalation Q4H PRN PRN Sob 09/02/15 Unknown History aerosol inhaler (Ventolin HFA) &/Or Wheezing cetirizine 10 mg capsule (Zyrtec) 10 mg PO DAILY 09/09/16 Unknown History folic acid 1 mg tablet 1 mg PO DAILY 09/09/16 Unknown History sertraline 50 mg tablet 50 mg PO DAILY 09/09/16 Unknown History atorvastatin 80 mg tablet 80 mg PO QHS 05/21/22 Unknown History fluticasone propionate 50 2 spray intranasal Q12H PRN 05/21/22 Unknown History mcg/actuation nasal allergy symptoms spray,suspension pyridoxine (vitamin B6) 250 mg 250 mg PO DAILY 05/21/22 Unknown History tablet sumatriptan succinate 50 mg tablet 50 mg PO DAILY 05/21/22 Unknown History cyclobenzaprine 5 mg tablet 5 mg PO TID PRN muscle spasm 3 11/29/24 Unknown Rx days #9 tabs cyclobenzaprine 10 mg tablet 10 mg PO TID PRN Muscle Spasm #20 04/14/25 Unknown Rx TABLETS hydrocodone-acetaminophen 5-325mg 1 tab PO Q4H PRN PRN Pain 2 days 04/14/25 Unknown Rx 5mg-325mg #10 TABLETS cyclobenzaprine 10 mg tablet 10 mg PO TID PRN muscle spasm #20 06/10/25 Unknown Rx tabs lidocaine 4 % topical patch 1 patch topical DAILY PRN pain #10 06/10/25 Unknown Rx ea Allergy/AdvReac Type Severity Reaction Status Date / Time erythromycin base Allergy Hives Verified 06/10/25 18:14 (Erythromycin Base) ketorolac tromethamine (From Allergy Rash Verified 06/10/25 18:14 Toradol) naproxen (From Naprosyn) Allergy Rash Verified 06/10/25 18:14 Family History Mother Uterine cancer Hypertension Hyperlipidemia Father Hyperlipidemia Pulmonary embolism and infarction Surgical History History of D&C Status post incision and drainage (~03/2022) History of surgery on arm Hx of toe surgery Social History Smoking Status: Light Smoker (<10/day) alcohol intake: never substance use type: does not use caffeine: Yes what type of physical activity do you participate in: walking frequency: daily seatbelt use: always do you feel safe at home: Yes additional social history: Gloria QUICK ED ROS Narrative Constitutional: Denies fevers, chills, headaches Cardiovascular: Denies chest pain Respiratory: Denies shortness of breath Abdomen: Denies nausea vomiting diarrhea states that she has normal bowel movements for self as noted above : States that she is urinating normally for self as noted above denies any urinary symptoms Neurological: Denies any numbness or tingling Musculoskeletal: Complains of back pain as noted above Skin: Denies any rashes or lesions EXAM Physical Exam Narrative Exam Narrative: General: Patient lying in bed rest comfortably did not appear to be in acute distress Head: Atraumatic, normocephalic Eyes: PERRL bilaterally, EOMI bilaterally, no conjunctival injection noted Neck: Soft, supple, trachea midline Cardiovascular: Regular rate and rhythm Respiratory: Clear to auscultation bilaterally Abdomen: Soft, nondistended, no tenderness palpation Musculoskeletal: Patient has tenderness to palpation over the quadratus lumborum region bilaterally no tenderness to palpation of the midline of the lumbar spine Extremities: +5/5 strength noted in the bilateral lower extremities, DP pulses +2/4 in the bilateral extremities, +2/4 radial pulses in the bilateral upper extremities Neurological: Patient follow commands that she was at [facility] years 2024 sensation grossly intact no saddle anesthesia noted Skin: Warm, dry, intact no rashes or lesions noted Const Vital Signs: 06/10/25 18:14 Temperature 98.4 F Temperature Source Oral Pulse Rate 81 Respiratory Rate 16 Blood Pressure 133/71 H Blood Pressure Mean 91 Pulse Ox 99 Oxygen Delivery Method Room Air MDM MDM MDM Narrative Medical decision making narrative: Patient is a 45-year-old female who presents to the emergency department chief complaint of acute on chronic back pain. On the differential diagnosis includes but not limited to musculoskeletal strain, compression fracture although have low suspicion for this clinically as she has no trauma to her back, cauda equina syndrome although clinically have low suspicion for this as well as noted above. Patient will be given 10 mg IM morphine and Zofran ODT 4 mg. On reevaluation of the patient at 7:00 PM she is feeling better she would like to go home at this point time. Patient will given prescriptions for Lidoderm and cyclobenzaprine. She is advised to not operate anything under the influence of the muscle laxer as it will make her sleepy and drowsy. She was vies follow-up with her doctor in outpatient setting and return if worsening symptoms or any concerns. She is agreeable to plan all question concerns answered she was discharged home in stable condition. Discharge Plan Triage Chief Complaint: Back ED Provider: Taye Meza Dx/Rx/DC Orders Clinical Impression: Back pain, Depression, Hyperlipidemia Prescriptions: New lidocaine 4 % adhesive patch,medicated 1 patch topical DAILY PRN (Reason: pain) Qty: 10 0RF cyclobenzaprine 10 mg tablet 10 mg PO TID PRN (Reason: muscle spasm) Qty: 20 0RF No Action atorvastatin 80 mg tablet 80 mg PO QHS Patient Comments: Take 1 tablet by mouth daily at bedtime. For cholesterol. fluticasone propionate 50 mcg/actuation spray,suspension 2 spray intranasal Q12H PRN (Reason: allergy symptoms) sumatriptan succinate 50 mg tablet 50 mg PO DAILY Patient Comments: take 1 tablet by mouth as needed for migraine; can take another 1 tablet in 1-2 hours if needed; limit 200 mg per 24 hours pyridoxine (vitamin B6) 250 mg tablet 250 mg PO DAILY albuterol sulfate [Ventolin HFA] 1 INHALER inhaler 2 puff inhalation Q4H PRN PRN (Reason: Sob &/Or Wheezing) folic acid 1 MG tablet 1 mg PO DAILY Patient Comments: sertraline 50 MG tablet 50 mg PO DAILY Zyrtec 10 MG capsule 10 mg PO DAILY cyclobenzaprine 5 mg tablet 5 mg PO TID PRN (Reason: muscle spasm) 3 Days Qty: 9 0RF cyclobenzaprine 10 mg tablet 10 mg PO TID PRN (Reason: Muscle Spasm) Qty: 20 0RF hydrocodone-acetaminophen 5-325 mg tablet 1 tab PO Q4H PRN PRN (Reason: Pain) 2 Days Qty: 10 0RF Primary Care Provider: Adrian Ley Referrals: Adrian Ley MD [Primary Care Provider, Family Practice] Activity Restrictions/Additional Instructions: Rotate Tylenol and ibuprofen [id number] when you do this you can take something every 3 hours with max dose of Tylenol in 24 hours 4000 mg max dose of ibuprofen in 24 hours 3200 mg. Use muscle relaxer as prescribed do not operate anything under the influence this medication is a make you sleepy and drowsy. Use Lidoderm patch as prescribed as well. Return with worsening symptoms or any other concerns. Follow-up your doctor in outpatient setting. Print Language: Sinhala Disposition Disposition: Home, Self Care
[2025-06-10 19:13] VITALS: BP 114/72; PULSE 68; RESP 16; TEMP 36.6; O2SAT 96
--- NOTE | 2025-06-10 19:15 | ED.RN ---
This RN inquired if patient has a ride home. Pt states yes, I do not drive...someone is coming to pick me up
== END 2025-06-10 19:16 | disposition home or self-care (01) ==
PROVIDERS: Emergency Provider Emergency Medicine; PCP Family Medicine; Visit Provider Emergency Medicine
DX: M54.9 Dorsalgia, unspecified (principal); F32.A Depression, unspecified; E78.5 Hyperlipidemia, unspecified; G89.29 Other chronic pain; K21.9 Gastro-esophageal reflux disease without esophagitis; J45.909 Unspecified asthma, uncomplicated; F17.200 Nicotine dependence, unspecified, uncomplicated
CPT/HCPCS: 96372; 99282

== ENCOUNTER 2025-08-12 11:21 | Emergency (ER) | payer MEDICAID, SELFPAY ==
[2025-08-12 11:21] VITALS: BP 102/78; PULSE 75; RESP 18; TEMP 36.3; O2SAT 97; BMI 23.3
--- NOTE | 2025-08-12 12:02 | ED.VIS.BACK ---
HPI History of Present Illness Chief Complaint: Back Informant: patient Narrative Narrative: Patient is a 45-year-old female presenting with acute onset of lower back pain. - Onset of pain began 2 days ago gradually. - Uncertain of specific trigger, but notes heavy lifting and prolonged standing at work. - Pain is similar to previous episodes, which helps her identify the issue. - Pain severity increased this morning, prompting her to call out of work, and she is requesting a work note/excuse. - Reports medication intolerances causing emesis. Prior similar symptoms: Yes and With Prior Back [facility] Medical History Hx LEEP (loop electrosurgical excision procedure), cervix, Hyperlipidemia GERD (gastroesophageal reflux disease) Depression Breast abscess RSD (reflex sympathetic dystrophy) History of sciatica Seizure disorder History of asthma Genital herpes Mental retardation Home Medications ?Medication ?Instructions ?Recorded ?Last Taken ?Type albuterol sulfate 90 mcg/actuation 2 puff inhalation Q4H PRN PRN Sob 09/02/15 08/11/25 History aerosol inhaler (Ventolin HFA) &/Or Wheezing cetirizine 10 mg capsule (Zyrtec) 10 mg PO DAILY 09/09/16 08/11/25 History folic acid 1 mg tablet 1 mg PO DAILY 09/09/16 08/12/25 History sertraline 50 mg tablet 50 mg PO DAILY 09/09/16 08/11/25 History atorvastatin 80 mg tablet 80 mg PO QHS 05/21/22 08/11/25 History fluticasone propionate 50 2 spray intranasal Q12H PRN 05/21/22 Unknown History mcg/actuation nasal allergy symptoms spray,suspension pyridoxine (vitamin B6) 250 mg 250 mg PO DAILY 05/21/22 08/12/25 History tablet sumatriptan succinate 50 mg tablet 50 mg PO DAILY 05/21/22 Unknown History cyclobenzaprine 10 mg tablet 10 mg PO TID PRN Muscle Spasm #15 08/12/25 Unknown Rx TABLETS fremanezumab-vfrm 225 mg/1.5 mL 225 mg subcut .monthly 08/12/25 08/06/25 History subcutaneous auto-injector (Ajovy) levetiracetam 1,000 mg tablet 1,000 mg PO BID 08/12/25 08/12/25 History Allergy/AdvReac Type Severity Reaction Status Date / Time erythromycin base Allergy Hives Verified 08/12/25 11:22 (Erythromycin Base) ketorolac tromethamine (From Allergy Rash Verified 08/12/25 11:22 Toradol) naproxen (From Naprosyn) Allergy Rash Verified 08/12/25 11:22 Family History Mother Uterine cancer Hypertension Hyperlipidemia Father Hyperlipidemia Pulmonary embolism and infarction Surgical History History of D&C Status post incision and drainage (~03/2022) History of surgery on arm Hx of toe surgery Social History Smoking Status: Current every day smoker tobacco type: cigarettes alcohol intake: never substance use type: does not use caffeine: Yes what type of physical activity do you participate in: walking frequency: daily seatbelt use: always do you feel safe at home: Yes additional social history: Gloria QUICK ED Constitutional Constitutional ED: Denies chills or fever(s) Gastrointestinal Gastrointestinal: Denies abdominal pain, constipation, fecal incontinence, nausea or vomiting Genitourinary Genitourinary ED: Reports other Details: no urinary retention ; Denies abdominal discomfort or urinary incontinence Musculoskeletal Musculoskeletal: Reports as per HPI and back pain; Denies neck pain Integumentary Denies rash or wounds Neurologic Neurologic: Denies headache(s), paresthesias or weakness EXAM Physical Exam Const Vital Signs: 08/12/25 11:21 Temperature 97.4 F L Temperature Source Temporal Pulse Rate 75 Respiratory Rate 18 Blood Pressure 102/78 Blood Pressure Mean 86 Pulse Ox 97 Oxygen Delivery Method Room Air Positive well nourished and well developed General Appearance ED: well developed and NAD HEENT Negative for trauma or tenderness Eyes PERRL and EOMs intact bilaterally Neck full ROM and supple GI normal to inspection, nondistended, normoactive bowel sounds, soft to palpation and non-tender Back/Spine normal to inspection Lumbar Spine / Lower Back: ROM limited, paraspinal muscle tenderness bilateral and straight leg raise negative bilaterally; Negative for lumbar spinal tenderness Extremity normal to inspection, full ROM and no pedal edema Neuro oriented x3 and no sensory deficits noted Sensorium / Orientation: alert Motor Exam: strength 5/5 throughout and clonus absent Deep Tendon Reflexes: Rt Patellar (L4): 2+, Lt Patellar (L4): 2+, Rt Ankle (S1): 2+ and Lt Ankle (S1): 2+ Deep Tendon Reflexes Back: Rt Patellar (L4): 2+, Lt Patellar (L4): 2+, Rt Ankle (S1): 2+ and Lt Ankle (S1): 2+ Plantar Reflex: Downgoing: bilateral Psych mental status grossly normal and thought process normal Skin no rashes or lesions noted and no wounds MDM MDM MDM Narrative Medical decision making narrative: Assessment: The patient is a 45-year-old female presenting for a two-day flare of lower back pain similar to prior episodes. Exam shows no midline spinal tenderness, negative straight leg raises, normal reflexes, and no bowel or bladder dysfunction, making cauda equina syndrome unlikely. Focal paraspinal tenderness in the lumbosacral region is consistent with myofascial lumbar strain, the most likely diagnosis. Plan: - Administered analgesic injections in ED for pain control - Prescribed muscle relaxers for home use - Provided work excuse note for today - Prescription for further narcotics not warranted for her at this time. Reviewed [facility] report; multiple prior narcotic prescriptions from multiple providers although not in the last couple weeks. - Disposition: discharge home with return precautions Portions of this note were generated using voice recognition software ([employer]). I have reviewed the contents and every effort has been made to ensure accuracy; however, inadvertent errors in grammar, spelling, punctuation, or word choice may occur, that were not noted before signing the document and should not alter the intended clinical meaning. Discharge Plan Triage Chief Complaint: Back ED Provider: Nikolai Allen Dx/Rx/DC Orders Clinical Impression: Acute lumbosacral myofascial strain, Acute exacerbation of chronic low back pain, Encounter for issue of other medical certificate Instructions: ED Back Sprain/Strain Prescriptions: New cyclobenzaprine 10 mg tablet 10 mg PO TID PRN (Reason: Muscle Spasm) Qty: 15 0RF No Action atorvastatin 80 mg tablet 80 mg PO QHS Patient Comments: Take 1 tablet by mouth daily at bedtime. For cholesterol. fluticasone propionate 50 mcg/actuation spray,suspension 2 spray intranasal Q12H PRN (Reason: allergy symptoms) sumatriptan succinate 50 mg tablet 50 mg PO DAILY Patient Comments: take 1 tablet by mouth as needed for migraine; can take another 1 tablet in 1-2 hours if needed; limit 200 mg per 24 hours pyridoxine (vitamin B6) 250 mg tablet 250 mg PO DAILY albuterol sulfate [Ventolin HFA] 1 INHALER inhaler 2 puff inhalation Q4H PRN PRN (Reason: Sob &/Or Wheezing) folic acid 1 MG tablet 1 mg PO DAILY Patient Comments: sertraline 50 MG tablet 50 mg PO DAILY Zyrtec 10 MG capsule 10 mg PO DAILY levetiracetam 1,000 mg tablet 1,000 mg PO BID Ajovy Autoinjector 225 mg/1.5 mL auto-injector 225 mg SUBCUT .monthly Patient Comments: Inject 1.5 mL subcutaneously 1 x per month Stand Alone Forms: ED Work / School Excuse Primary Care Provider: Adrian Ley Referrals: Adrian Ley MD [Primary Care Provider, Family Practice] - 1 Week if not improving Print Language: Luxembourgish Disposition Disposition: Home, Self Care
[2025-08-12] MEDS: HYDROcodone Bitartrate/Apap 5/325 Tablet PO (12:05)
[2025-08-12] MEDS: Orphenadrine 60 MG/2 ML Ampul IM (12:06)
[2025-08-12 12:24] VITALS: BP 103/68
== END 2025-08-12 12:24 | disposition home or self-care (01) ==
LOC: ED 12:16
PROVIDERS: Emergency Provider Emergency Medicine; PCP Family Medicine; Visit Provider Emergency Medicine
DX: S39.012A Strain of muscle, fascia and tendon of lower back, initial encounter (principal); E78.5 Hyperlipidemia, unspecified; K21.9 Gastro-esophageal reflux disease without esophagitis; Z79.899 Other long term (current) drug therapy; F17.210 Nicotine dependence, cigarettes, uncomplicated; G89.29 Other chronic pain; X58.XXXA Exposure to other specified factors, initial encounter
CPT/HCPCS: 96372; 99282